=== PATIENT | female | born 1940 | race Caucasian/White ===

== ENCOUNTER 2016-11-25 19:21 | Inpatient (IN) | payer OTHER ==
[~2016-11-25] VITALS: Ht 152.4 cm; Wt 76.7 kg
[~2016-11-25 19:21] MED LIST: ACET325T30 PO; ASCA500 PO; ASPI81TA28 PO; BACL1TAB PO; CLR10 PO; CSPOPS OPB; DICL-201 PO; FLUT0.15 NAE; FURO20TA PO; LATA0.009 OPB; LEVO75TA PO; LISI20TA3 PO; MBXC PO; NYST1POW7 TOP; NYSTCRE11 TOP; OMEP40CA PO; OXYSRUNK PO; SIMV20TA2 PO; VENL37.593 PO; VENL75CA73 PO; VITACAP37 PO
--- NOTE | 2016-11-25 20:30 | DIAGNOSTIC IMAGING REPORT ---
CHEST ONE VIEW PORTABLE CLINICAL HISTORY: Weakness. Nausea. COMPARISON STUDY: Chest radiograph August 04, 2012. FINDINGS: There are surgical anchors within the right humeral head. There is mild left basilar opacity. Right lung is clear. Cardiac size is at the upper limits of normal. Pulmonary vascularity is normal. IMPRESSION: Mild left basilar opacity. Atelectasis is favored although consolidation could appear similar. Follow-up PA and lateral chest radiographs in one month are recommended. Electronically signed by: Jonathan Garner M.D. 11/25/2016 8:28 PM Dictated Date/Time: 11/25/2016 8:26 PM
[2016-11-25] MEDS ORDERED: SODIUM CHLORIDE 0.9% 500ML 500 ML IV STA (20:35)
[2016-11-25] MEDS ORDERED: SODIUM CHLORIDE 0.9% 1000ML 1,000 ML IV STA (20:35)
[2016-11-25 20:44] LABS: BASO % 0.2 %; BASO ABS # 0.02 K/uL (0-0.2); COMPLETE YES; EOS % 0.4 %; HEMATOCRIT 45.2 % (37-47); IG% 1.4 %; LYMPH ABS # 1.07 K/uL (1.2-3.4); MEAN CELL VOLUME 96.8 fL (80-100); MEAN CORPUSCULAR HEMOGLOBIN 32.5 pg (25-34); MEAN CORPUSCULAR HGB CONC 33.6 g/dl (32-36); MEAN PLATELET VOLUME 9.5 fL (7.4-10.4); MONO % 5.5 %; NEUT % 81.5 %; PLATELET COUNT 227 K/uL (130-400); RED BLOOD COUNT 4.67 M/uL (4.2-5.4); WHITE BLOOD COUNT 9.72 K/uL (4.8-10.8)
[2016-11-25 21:04] LABS: MAGNESIUM 1.4 mg/dl (1.8-2.4); POTASSIUM 5.3 mmol/L (3.5-5.1)
[2016-11-25 21:06] LABS: PROTHROMBIN TIME (PATIENT) 11.2 SECONDS (9.0-12.0)
[2016-11-25] MEDS ORDERED: DORZ1SOL6 OP (21:15)
[2016-11-25] MEDS ORDERED: FLUO0.01 TOP (21:15)
[2016-11-25] MEDS ORDERED: PRED10TA PO (21:15)
[2016-11-25] MEDS ORDERED: MULT-513 PO (21:15)
[2016-11-25] MEDS ORDERED: GLUC10007 PO (21:15)
[2016-11-25] MEDS ORDERED: OMEP40CA41 PO (21:15)
[2016-11-25] MEDS ORDERED: OXYC-787 PO (21:15)
[2016-11-25] MEDS ORDERED: LIDO2SOL10 PO (21:15)
[2016-11-25] MEDS ORDERED: CYM/30 PO (21:15)
[2016-11-25] MEDS ORDERED: FERR1TAB13 PO (21:15)
[2016-11-25] MEDS ORDERED: SIME80CH PO (21:15)
[2016-11-25 21:19] LABS: CKMB/CK RATIO 5.5 (0-3.0); THYROID STIMULATING HORMONE 0.897 uIu/ml (0.300-4.500)
--- NOTE | 2016-11-25 21:23 | DIAGNOSTIC IMAGING REPORT ---
CT OF THE ABDOMEN AND PELVIS WITHOUT CONTRAST, STONE PROTOCOL CLINICAL HISTORY: Dark urine, urinary symptoms. COMPARISON STUDY: None. TECHNIQUE: Helical axial images of the abdomen and pelvis were obtained without IV or oral contrast according to renal stone protocol. FINDINGS: Visualized portions of the lower chest demonstrate a moderate sized hiatal hernia. No renal, ureteral or bladder calculi are identified. There is no hydronephrosis or hydroureter. Evaluation the remainder of the abdomen and pelvis is suboptimal on this unenhanced exam. Unenhanced images of the liver, spleen, adrenal glands and pancreas are unremarkable. There are gallstones within the gallbladder. There is no pericholecystic infiltration. There is a moderate amount of stool within the colon. There is evidence for pelvic floor relaxation. There is left colon diverticulosis without evidence for acute diverticulitis. No lymphadenopathy is identified. No suspicious skeletal lesions are identified. There is no ascites or abscess. IMPRESSION: 1. No urinary calculi or hydronephrosis. 2. Cholelithiasis. No CT evidence of acute cholecystitis. 3. Moderate sized hiatal hernia. 4. Moderate amount of stool within the colon. Left colon diverticulosis without evidence for acute diverticulitis. Electronically signed by: Jonathan Garner M.D. 11/25/2016 9:21 PM Dictated Date/Time: 11/25/2016 9:14 PM
[2016-11-25] MEDS ORDERED: MAGNESIUM SULFATE 1GM / D5W 1 GM BAG IV STA (21:54)
[2016-11-25] MEDS ORDERED: ASPIRIN 81 MG CHEW PO STA (21:54)
[2016-11-25 22:31] LABS: URINE APPEARANCE CLEAR (CLEAR); URINE BILIRUBIN NEG (NEG); URINE COLOR YELLOW; URINE NITRITE NEG (NEG); URINE PH 5.5 (4.5-7.5); URINE SPECIFIC GRAVITY 1.009 (1.000-1.030); UROBILINOGEN NEG (NEG)
[2016-11-25 22:35] LABS: MANUAL MICROSCOPIC REQUIRED? NO; REVIEW REQ? NO
[2016-11-25] MEDS ORDERED: MoRPHine SULFATE 4 MG/ML 1 ML CARP\\VIAL IV STA (23:02)
[2016-11-25] MEDS: SODIUM CHLORIDE 0.9% 1000ML 1,000 ML IV SCH (23:11)
[2016-11-25] MEDS ORDERED: NITROGLYCERIN 0.4 MG SL PER TAB CHARGE SL PRN (23:15)
[2016-11-25] MEDS ORDERED: ACETAMINOPHEN 325 MG TAB PO PRN (23:15)
--- NOTE | 2016-11-25 23:20 | History and Physical ---
"History & Physical Date & Time of Service: Nov 25, 2016 at 23:19 Chief Complaint: Sweating, Nausea- Physician Referred Primary Care Physician: Markell Kline M.D. History of Present Illness Source: patient, family Patient is 76 yr old female with PMH of DM II (diet controlled), CKD III, Hypothyroidism, Depression, chronic venous stasis, arthritis presents for evaluation of diaphoresis, for abnormal EKG. Patient was at [facility] five days ago for dark urine with an odor and sweating spells. She was diagnosed to have UTI, hypomagnesemia and dehydration. She was treated with Bactrim and Magnesium. She completed 5 days of Bactrim and was told to complete a 7 day course. She was later told her urine culture was negative. She visited her PCP today who told her to get evaluated in ED for an abnormal EKG. She states not feeling herself since last few days and has nausea and diaphoresis and has been feeling tired lately. Also states being constipated for 2 days but had BM today. Denies any history of chest pain, SOB, palpitations, abd pain, cough, wheezing, LOC, headache, fevers, chills, visual changes, numbness. She also states having poor appetite and lost about 15 pounds since hospitalization at [place]. Past Medical/Surgical History Medical Problems: (1) Depression Status: Chronic (2) Dyslipidemia Status: Chronic (3) Essential hypertension Status: Chronic (4) Generalized osteoarthritis Status: Chronic (5) Psoriasis Status: Chronic (6) s/p colonoscopy Permanent Comment: diverticulosis Status: Resolved (7) s/p dobutamine stress echo Permanent Comment: [facility] 12/18/05 normal LV wall motion and sys function at rest diastolic dysfunction aortic sclerosis without stenosis no stress-induced ischemia Status: Resolved (8) s/p EGD Permanent Comment: small hiatal hernia Status: Resolved (9) s/p rectocele repair Status: Resolved (10) s/p repair right rotator cuff injury Status: Resolved (11) s/p TKA left Status: Resolved (12) s/p TKA right Status: Resolved Family History Mother:Heart disease Father:Diabetes Social History Smoking Status: Former Smoker Alcohol Use: none Drug Use: none Occupational Status: retired Immunizations History of Influenza Vaccine: N/A History of Tetanus Vaccine?: UTD History of Pneumococcal: Yes Pneumococcal Date: December 09, 2008 History of Hepatitis B Vaccine: Yes Hepatitis Immunization Date: December 09, 1996 Multi-Drug Resistant Organisms History of MDRO: No Allergies Coded Allergies: Gabapentin (Verified Allergy, Severe, MOUTH SWELLS, 11/25/16) Pregabalin (Verified Allergy, Severe, MOUTH SWELLS, 11/25/16) Home Medications Scheduled Ascorbic Acid (Vitamin C), 1 TAB PO QAM Dorzolamide Hcl-Timolol Maleat (Cosopt Oph), 1 DROPS OP BID Duloxetine HCl (Cymbalta), 1 CAP PO DAILY Ferrous Sulfate (Kp Ferrous Sulfate), 1 TAB PO BID Fluocinolone Acetonide (Fluocinolone Acetonide), 1 APPLN TOP gmg Furosemide (Lasix), 20 MG PO QAM Glucosamine Sulfate (Glucosamine), 1,000 MG PO BID Latanoprost (Xalatan 0.005% Oph Chanelle), 1 DROP OPB HS Levothyroxine Sodium (Synthroid), 75 MCG PO QAM Lidocaine Hcl (Mouth-Throat) (Lidocaine Hcl), 2 TBS PO UD Lisinopril (Prinivil), 20 MG PO QAM Loratadine (Claritin), 10 MG PO HS Multivitamins/Minerals (Mvi With Minerals), 1 TAB PO DAILY Omeprazole (Prilosec), 40 MG PO DAILY Oxycodone HCl (Oxycodone HCl ER), 30 MG PO Q12 Prednisone Tab (Prednisone), 10 MG PO DAILY Simvastatin (Zocor), 20 MG PO HS Venlafaxine Hcl (Venlafaxine Extended Rel), 75 MG PO QAM Venlafaxine Hcl (Venlafaxine Extended Rel), 37.5 MG PO QAM Vitamin E (E-400), 1 TAB PO QAM Scheduled PRN Acetaminophen (Acetaminophen), 2 TAB PO QID PRN for Pain Baclofen (Lioresal), 10 MG PO TID PRN for Muscle Spasms Fluticasone Propionate (Nasal) (Flonase Allergy Relief), 1 SPRAY FELIPE QAM PRN for Nasal Congestion Magic Swizzle (Magic Swizzle - SUCRALFA/ALUM/MAG/DIPHEN/LIDO), 3-4 TSP PO Q4-6H PRN for MOUTH ULCERS Nystatin (Topical) (Nystatin), 1 APPL TOP UD PRN for RASH Nystatin/Triamcinolone (Mycolog ||), 1 APPL TOP UD PRN for CELLULITIS Simethicone (Gas-X), 80 MG PO QID PRN for GAS Review of Systems See HPI for pertinent positives & negatives. A total of 10 systems reviewed and were otherwise negative. Physical Exam Vital Signs Date Time Temp Pulse Resp B/P Pulse Ox O2 Delivery O2 Flow Rate FiO2 11/25/16 22:35 160/89 11/25/16 22:25 193/107 11/25/16 22:14 103 20 193/107 95 Room Air 11/25/16 20:52 108 148/104 106 169/112 112 144/106 11/25/16 20:06 95 11/25/16 20:04 94 Room Air 11/25/16 19:27 36.7 108 19 141/86 94 Room Air General Appearance: WD/WN, no apparent distress Head: normocephalic, atraumatic Eyes: normal inspection, PERRL, EOMI, sclerae normal ENT: normal ENT inspection, hearing grossly normal Neck: supple, trachea midline Respiratory/Chest: lungs clear, normal breath sounds, no respiratory distress, no accessory muscle use Cardiovascular: regular rate, rhythm, no murmur, + tachycardia Abdomen/GI: normal bowel sounds, non tender, soft Back: normal inspection Extremities/Musculoskelatal: normal inspection, + pertinent finding (Trace edema) Neurologic/Psych: camp boss II-XII nml as tested, no motor/sensory deficits, alert, normal mood/affect, oriented x 3 Skin: normal color, warm/dry Diagnostics Laboratory Results Results Past 24 Hours Test 11/25/16 20:34 11/25/16 20:35 11/25/16 22:00 Range/Units Bedside Glucose 129 70-90 mg/dl White Blood Count 9.72 4.8-10.8 K/uL Red Blood Count 4.67 4.2-5.4 M/uL Hemoglobin 15.2 12.0-16.0 g/dL Hematocrit 45.2 37-47 % Mean Corpuscular Volume 96.8 80-100 fL Mean Corpuscular Hemoglobin 32.5 25-34 pg Mean Corpuscular Hemoglobin Concent 33.6 32-36 g/dl Platelet Count 227 130-400 K/uL Mean Platelet Volume 9.5 7.4-10.4 fL Neutrophils (%) (Auto) 81.5 % Lymphocytes (%) (Auto) 11.0 % Monocytes (%) (Auto) 5.5 % Eosinophils (%) (Auto) 0.4 % Basophils (%) (Auto) 0.2 % Neutrophils # (Auto) 7.92 1.4-6.5 K/uL Lymphocytes # (Auto) 1.07 1.2-3.4 K/uL Monocytes # (Auto) 0.53 0.11-0.59 K/uL Eosinophils # (Auto) 0.04 0-0.5 K/uL Basophils # (Auto) 0.02 0-0.2 K/uL RDW Standard Deviation 47.6 36.4-46.3 fL RDW Coefficient of Variation 13.4 11.5-14.5 % Immature Granulocyte % (Auto) 1.4 % Immature Granulocyte # (Auto) 0.14 0.00-0.02 K/uL Prothrombin Time 11.2 9.0-12.0 SECONDS Prothromb Time International Ratio 1.0 0.9-1.1 Activated Partial Thromboplast Time 25.9 21.0-31.0 SECONDS Partial Thromboplastin Ratio 1.0 Sodium Level 133 136-145 mmol/L Potassium Level 5.3 3.5-5.1 mmol/L Chloride Level 97 98-107 mmol/L Carbon Dioxide Level 32 21-32 mmol/L Anion Gap 4.0 3-11 mmol/L Blood Urea Nitrogen 48 7-18 mg/dl Creatinine 2.00 0.60-1.20 mg/dl Est Creatinine Clear Calc Drug Dose 22.6 ml/min Estimated GFR () 27.8 Estimated GFR (Non- 24.0 BUN/Creatinine Ratio 24.0 10-20 Random Glucose 144 70-99 mg/dl Calcium Level 9.0 8.5-10.1 mg/dl Magnesium Level 1.4 1.8-2.4 mg/dl Total Bilirubin 0.5 0.2-1 mg/dl Direct Bilirubin 0.2 0-0.2 mg/dl Aspartate Amino Transf (AST/SGOT) 22 15-37 U/L Alanine Aminotransferase (ALT/SGPT) 34 12-78 U/L Alkaline Phosphatase 63 45-117 U/L Total Creatine Kinase 144 26-192 U/L Creatine Kinase MB 7.9 0.5-3.6 ng/ml Creatine Kinase MB Ratio 5.5 0-3.0 Troponin I 0.062 0-0.045 ng/ml Pro-B-Type Natriuretic Peptide 975 0-900 pg/ml Total Protein 7.4 6.4-8.2 gm/dl Albumin 3.8 3.4-5.0 gm/dl Lipase 157 73-393 U/L Thyroid Stimulating Hormone (TSH) 0.897 0.300-4.500 uIu/ml Urine Color YELLOW Urine Appearance CLEAR CLEAR Urine pH 5.5 4.5-7.5 Urine Specific [place] 1.009 1.000-1.030 Urine Protein NEG NEG Urine Glucose (UA) NEG NEG Urine Ketones NEG NEG Urine Occult Blood NEG NEG Urine Nitrite NEG NEG Urine Bilirubin NEG NEG Urine Urobilinogen NEG NEG Urine Leukocyte Esterase SMALL NEG Urine WBC (Auto) 5-10 0-5 /hpf Urine RBC (Auto) 0-4 0-4 /hpf Urine Hyaline Casts (Auto) 1-5 0-5 /lpf Urine Epithelial Cells (Auto) 10-20 0-5 /lpf Urine Bacteria (Auto) NEG NEG Microbiology Results 11/25/16 Urine Culture, Received Pending Diagnostic Radiology CXR: Mild left basilar opacity. Atelectasis is favored although consolidation could appear similar. Follow-up PA and lateral chest radiographs in one month are recommended. CT ABD: 1. No urinary calculi or hydronephrosis. 2. Cholelithiasis. No CT evidence of acute cholecystitis. 3. Moderate sized hiatal hernia. 4. Moderate amount of stool within the colon. Left colon diverticulosis without evidence for acute diverticulitis. EKG ekg: Inferior Q waves which were new compared to April Impression Assessment and Plan RITA on CKD III: Likely secondary to dehydration, Bactrim, lisinopril Cr:1.[address] [facility] Hold ACEI, lasix Avoid nephro toxic agents Start IV fluids Monitor renal function ACS R/O Risk factors: H/O HTN, former Tobacco use disorder, DM II Denies any chest pain New Q waves in inferior leads Troponin:0.062 CXR: Mild left basilar opacity, likely atelectasis Check ECHO Trend serial cardiac enzymes, repeat EKG, fasting lipid panel in AM Continue Aspirin, statins Start IV Heparin for now Oxygen PRN NPO after midnight Cardiology consulted Hypomagnesemia Replace and monitor Hyperkalemia: Likely secondary to RITA Continue IV fluids Monitor potassium levels Hold lisinopril ? UTI: UA: small leukocyte esterase [id number] up cultures Afebrile, No leukocytosis, denies symptoms Hypertension: Likely situational Asymptomatic Monitor Lasix and Lisinopril on hold secondary to RITA Diaphoresis/Weight loss: CT ABD: no acute pathology CXR: Mild left basilar opacity, likely atelectasis Afebrile, No leukocytosis DM II: Diet controlled ISS, Accu checks Hypothyroidism: Continue levothyroxine DVT Px: On IV heparin Code Status: DNI only: on my discussion with patient Disposition: Continue monitoring in Tele VTE Prophylaxis VTE Risk Assessment Done? Y/N: Yes Risk Level: Low"
[2016-11-25] MEDS ORDERED: ONDANSETRON INJ 2 MG/ML 2 ML VIAL IV STA (23:42)
[2016-11-25] MEDS ORDERED: SIMETHICONE 80 MG CHEW PO PRN (23:45)
[2016-11-25] MEDS ORDERED: BACLOFEN 10 MG TAB PO PRN (23:45)
[2016-11-25] MEDS ORDERED: ONDANSETRON INJ 2 MG/ML 2 ML VIAL ONE (23:48)
[2016-11-26] VITALS (9 sets, daily range): BP systolic 133–190; BP diastolic 71–106; PULSE 58–92; TEMP 36.6–36.9; O2SAT 92–97; Ht 152.4 cm; Wt 76.7 kg
--- NOTE | 2016-11-26 01:18 | EMERGENCY ROOM VISIT NOTE ---
"History Report prepared by Sherry: Violet Cast Under the Supervision of: Dr. Ricardo Grajeda M.D. First contact with patient: 19:51 Chief Complaint: NAUSEA Stated Complaint: SWEATING, NAUSEA- PHYSICIAN REFERRED History of Present Illness The patient is a 76 year old female who presents to the Emergency Room with complaints of episodes of sweating spells starting five days ago. The patient visited [facility] five days ago for dark urine with an odor and sweating spells. She reports she was diagnosed with a UTI, low magnesium, and dehydration. She states she was sent home with Bactrim and Magnesium. She states that she went to her PCP in [place] today who told her to come to the ED due to an abnormal EKG. The patient notes that the medicine has not helped her fell any better. She notes that she has been constipated for two days and has seemed winded. Pt denies LOC, headache, fevers, chills, diaphoresis, visual changes, neck pain, chest pain, breathing difficulties, nausea, vomiting, abdominal pain, back pain, melena, hematochezia, numbness, weakness, lymphadenopathy, rash, or other complaints. Source of History: patient Onset: five days ago Position: other (global) Quality: other (global) Timing: other (episodes) Associated Symptoms: + urinary symptoms Note: The patient notes constipation. Review of Systems See HPI for pertinent positives and negatives. A total of ten systems were reviewed and were otherwise negative. Past Medical & Surgical Medical Problems: (1) Depression (2) Dyslipidemia (3) Essential hypertension (4) Generalized osteoarthritis (5) hip fracture (6) Psoriasis (7) s/p colonoscopy (8) s/p dobutamine stress echo (9) s/p EGD (10) s/p rectocele repair (11) s/p repair right rotator cuff injury (12) s/p TKA left (13) s/p TKA right (14) Tiredness Family History No pertinent family history stated. Social History Smoking Status: Former Smoker Occupation Status: retired Current/Historical Medications Scheduled Ascorbic Acid (Vitamin C), 1 TAB PO QAM Dorzolamide Hcl-Timolol Maleat (Cosopt Oph), 1 DROPS OP BID Duloxetine HCl (Cymbalta), 1 CAP PO DAILY Ferrous Sulfate (Kp Ferrous Sulfate), 1 TAB PO BID Fluocinolone Acetonide (Fluocinolone Acetonide), 1 APPLN TOP gmg Furosemide (Lasix), 20 MG PO QAM Glucosamine Sulfate (Glucosamine), 1,000 MG PO BID Latanoprost (Xalatan 0.005% Oph Chanelle), 1 DROP OPB HS Levothyroxine Sodium (Synthroid), 75 MCG PO QAM Lidocaine Hcl (Mouth-Throat) (Lidocaine Hcl), 2 TBS PO UD Lisinopril (Prinivil), 20 MG PO QAM Loratadine (Claritin), 10 MG PO HS Multivitamins/Minerals (Mvi With Minerals), 1 TAB PO DAILY Omeprazole (Prilosec), 40 MG PO DAILY Oxycodone HCl (Oxycodone HCl ER), 30 MG PO Q12 Prednisone Tab (Prednisone), 10 MG PO DAILY Simvastatin (Zocor), 20 MG PO HS Venlafaxine Hcl (Venlafaxine Extended Rel), 75 MG PO QAM Venlafaxine Hcl (Venlafaxine Extended Rel), 37.5 MG PO QAM Vitamin E (E-400), 1 TAB PO QAM Scheduled PRN Acetaminophen (Acetaminophen), 2 TAB PO QID PRN for Pain Baclofen (Lioresal), 10 MG PO TID PRN for Muscle Spasms Fluticasone Propionate (Nasal) (Flonase Allergy Relief), 1 SPRAY FELIPE QAM PRN for Nasal Congestion Magic Swizzle (Magic Swizzle - SUCRALFA/ALUM/MAG/DIPHEN/LIDO), 3-4 TSP PO Q4-6H PRN for MOUTH ULCERS Nystatin (Topical) (Nystatin), 1 APPL TOP UD PRN for RASH Nystatin/Triamcinolone (Mycolog ||), 1 APPL TOP UD PRN for CELLULITIS Simethicone (Gas-X), 80 MG PO QID PRN for GAS Allergies Coded Allergies: Gabapentin (Verified Allergy, Severe, MOUTH SWELLS, 11/25/16) Pregabalin (Verified Allergy, Severe, MOUTH SWELLS, 11/25/16) Physical Exam Vital Signs Date Time Temp Pulse Resp B/P Pulse Ox O2 Delivery O2 Flow Rate FiO2 11/25/16 22:35 160/89 11/25/16 22:25 193/107 11/25/16 22:14 103 20 193/107 95 Room Air 11/25/16 20:52 108 148/104 106 169/112 112 144/106 11/25/16 20:06 95 11/25/16 20:04 94 Room Air 11/25/16 19:27 36.7 108 19 141/86 94 Room Air Physical Exam GENERAL: Awake, alert, well-appearing, in no distress HENT: Normocephalic, atraumatic. Oropharynx unremarkable. EYES: Normal conjunctiva. Sclera non-icteric. NECK: Supple. No nuchal rigidity. FROM. No JVD. RESPIRATORY: Clear to auscultation. CARDIAC: Regular rate, normal rhythm. Extremities warm and well perfused. Pulses equal. ABDOMEN: Soft, non-distended. No tenderness to palpation. No rebound or guarding. No masses. RECTAL: Deferred. MUSCULOSKELETAL: Chest examination reveals no tenderness. The back is symmetrical on inspection without obvious abnormality. There is no CVA tenderness to palpation. No joint edema. LOWER EXTREMITIES: Calves are equal size bilaterally and non-tender. Trace +1 edema. Chronic venous discoloration. NEURO: Normal sensorium. No sensory or motor deficits noted. SKIN: No rash or jaundice noted. Medical Decision & Procedures ER Provider Diagnostic Interpretation: X ray results as stated below per my interpretation and radiologist interpretation. Other radiology results as stated below per my review and radiologist interpretation CT OF THE ABDOMEN AND PELVIS WITHOUT CONTRAST, STONE PROTOCOL CLINICAL HISTORY: Dark urine, urinary symptoms. COMPARISON STUDY: None. TECHNIQUE: Helical axial images of the abdomen and pelvis were obtained without IV or oral contrast according to renal stone protocol. FINDINGS: Visualized portions of the lower chest demonstrate a moderate sized hiatal hernia. No renal, ureteral or bladder calculi are identified. There is no hydronephrosis or hydroureter. Evaluation the remainder of the abdomen and pelvis is suboptimal on this unenhanced exam. Unenhanced images of the liver, spleen, adrenal glands and pancreas are unremarkable. There are gallstones within the gallbladder. There is no pericholecystic infiltration. There is a moderate amount of stool within the colon. There is evidence for pelvic floor relaxation. There is left colon diverticulosis without evidence for acute diverticulitis. No lymphadenopathy is identified. No suspicious skeletal lesions are identified. There is no ascites or abscess. IMPRESSION: 1. No urinary calculi or hydronephrosis. 2. Cholelithiasis. No CT evidence of acute cholecystitis. 3. Moderate sized hiatal hernia. 4. Moderate amount of stool within the colon. Left colon diverticulosis without evidence for acute diverticulitis. Electronically signed by: Jonathan Garner M.D. 11/25/2016 9:21 PM Dictated Date/Time: 11/25/2016 9:14 PM CHEST ONE VIEW PORTABLE CLINICAL HISTORY: Weakness. Nausea. COMPARISON STUDY: Chest radiograph August 04, 2012. FINDINGS: There are surgical anchors within the right humeral head. There is mild left basilar opacity. Right lung is clear. Cardiac size is at the upper limits of normal. Pulmonary vascularity is normal. IMPRESSION: Mild left basilar opacity. Atelectasis is favored although consolidation could appear similar. Follow-up PA and lateral chest radiographs in one month are recommended. Electronically signed by: Jonathan Garner M.D. 11/25/2016 8:28 PM Dictated Date/Time: 11/25/2016 8:26 PM Laboratory Results 11/25/16 20:35 Red Blood Count 4.67, Mean Corpuscular Volume 96.8, Mean Corpuscular Hemoglobin 32.5, Mean Corpuscular Hemoglobin Concent 33.6, Mean Platelet Volume 9.5, Neutrophils (%) (Auto) 81.5, Lymphocytes (%) (Auto) 11.0, Monocytes (%) (Auto) 5.5, Eosinophils (%) (Auto) 0.4, Basophils (%) (Auto) 0.2, Neutrophils # (Auto) 7.92, Lymphocytes # (Auto) 1.07, Monocytes # (Auto) 0.53, Eosinophils # (Auto) 0.04, Basophils # (Auto) 0.02 11/25/16 20:35 Test 11/25/16 20:34 11/25/16 20:35 11/25/16 22:00 Bedside Glucose 129 mg/dl (70-90) White Blood Count 9.72 K/uL (4.8-10.8) Red Blood Count 4.67 M/uL (4.2-5.4) Hemoglobin 15.2 g/dL (12.0-16.0) Hematocrit 45.2 % (37-47) Mean Corpuscular Volume 96.8 fL (80-100) Mean Corpuscular Hemoglobin 32.5 pg (25-34) Mean Corpuscular Hemoglobin Concent 33.6 g/dl (32-36) Platelet Count 227 K/uL (130-400) Mean Platelet Volume 9.5 fL (7.4-10.4) Neutrophils (%) (Auto) 81.5 % Lymphocytes (%) (Auto) 11.0 % Monocytes (%) (Auto) 5.5 % Eosinophils (%) (Auto) 0.4 % Basophils (%) (Auto) 0.2 % Neutrophils # (Auto) 7.92 K/uL (1.4-6.5) Lymphocytes # (Auto) 1.07 K/uL (1.2-3.4) Monocytes # (Auto) 0.53 K/uL (0.11-0.59) Eosinophils # (Auto) 0.04 K/uL (0-0.5) Basophils # (Auto) 0.02 K/uL (0-0.2) RDW Standard Deviation 47.6 fL (36.4-46.3) RDW Coefficient of Variation 13.4 % (11.5-14.5) Immature Granulocyte % (Auto) 1.4 % Immature Granulocyte # (Auto) 0.14 K/uL (0.00-0.02) Prothrombin Time 11.2 SECONDS (9.0-12.0) Prothromb Time International Ratio 1.0 (0.9-1.1) Activated Partial Thromboplast Time 25.9 SECONDS (21.0-31.0) Partial Thromboplastin Ratio 1.0 Anion Gap 4.0 mmol/L (3-11) Est Creatinine Clear Calc Drug Dose 22.6 ml/min Estimated GFR () 27.8 Estimated GFR (Non- 24.0 BUN/Creatinine Ratio 24.0 (10-20) Calcium Level 9.0 mg/dl (8.5-10.1) Magnesium Level 1.4 mg/dl (1.8-2.4) Total Bilirubin 0.5 mg/dl (0.2-1) Direct Bilirubin 0.2 mg/dl (0-0.2) Aspartate Amino Transf (AST/SGOT) 22 U/L (15-37) Alanine Aminotransferase (ALT/SGPT) 34 U/L (12-78) Alkaline Phosphatase 63 U/L (45-117) Total Creatine Kinase 144 U/L (26-192) Creatine Kinase MB 7.9 ng/ml (0.5-3.6) Creatine Kinase MB Ratio 5.5 (0-3.0) Troponin I 0.062 ng/ml (0-0.045) Pro-B-Type Natriuretic Peptide 975 pg/ml (0-900) Total Protein 7.4 gm/dl (6.4-8.2) Albumin 3.8 gm/dl (3.4-5.0) Lipase 157 U/L (73-393) Thyroid Stimulating Hormone (TSH) 0.897 uIu/ml (0.300-4.500) Urine Color YELLOW Urine Appearance CLEAR (CLEAR) Urine pH 5.5 (4.5-7.5) Urine Specific [place] 1.009 (1.000-1.030) Urine Protein NEG (NEG) Urine Glucose (UA) NEG (NEG) Urine Ketones NEG (NEG) Urine Occult Blood NEG (NEG) Urine Nitrite NEG (NEG) Urine Bilirubin NEG (NEG) Urine Urobilinogen NEG (NEG) Urine Leukocyte Esterase SMALL (NEG) Urine WBC (Auto) 5-10 /hpf (0-5) Urine RBC (Auto) 0-4 /hpf (0-4) Urine Hyaline Casts (Auto) 1-5 /lpf (0-5) Urine Epithelial Cells (Auto) 10-20 /lpf (0-5) Urine Bacteria (Auto) NEG (NEG) Laboratory results reviewed by me Medications Administered Medications (Trade) Dose Ordered Sig/Fab Route Start Time Stop Time Status Last Admin Dose Admin Sodium Chloride 1,000 ml @ 200 mls/hr Q5H STAT IV 11/25/16 20:35 11/26/16 01:34 11/25/16 21:48 200 MLS/HR Sodium Chloride (Nss 500ml) 500 ml @ 999 mls/hr Q31M STAT IV 11/25/16 20:35 11/25/16 21:05 DC 11/25/16 20:59 999 MLS/HR Magnesium Sulfate (Magnesium Sulfate) 1 gm NOW STAT IV 11/25/16 21:54 11/25/16 21:55 DC 11/25/16 22:08 1 GM Aspirin (Aspirin Chew) 324 mg NOW STAT PO 11/25/16 21:54 11/25/16 21:55 DC 11/25/16 22:08 324 MG Morphine Sulfate (MoRPHine SULFATE INJ) 4 mg NOW STAT IV 11/25/16 23:02 11/25/16 23:04 DC 11/25/16 23:43 4 MG ECG Indication: diaphoresis Rate (beats per minute): 98 Rhythm: sinus tachycardia Findings: PAC (sinus rhythm), Q waves (Inferior), left axis deviation (LVH) Comparison ECG Date: 04/24/2016 Change: PACs and Inferior Q-waves are new from previous EKG. ED Course 2030: The patient was evaluated in room C3. A complete history and physical exam was performed. 2034: Ordered NSS 500 ml @ 999 mls/hr IV, NSS 1000 ml @ 200 mls/hr IV. 2153: Ordered Aspirin Chew 324 mg PO, Magnesium Sulfate 1 gm IV. 2199: Upon reexamination, the patient was resting comfortably. I discussed the test results and treatment plan with her and her daughter. The patient will be evaluated for further management. 2210: Discussed the patient's case. The patient will be evaluated for further treatment and disposition. Medical Decision Triage Nursing notes reviewed. The patient's presentation and history were concerning for hypermagnesemia, diaphoresis, and urinary symptoms. Etiologies such as metabolic, infection, hypo/hyperglycemia, electrolyte abnormalities, cardiac sources, intracerebral event, toxicologic, neurologic, as well as others were entertained. The patient was evaluated. She was hydrated. Her ECG showed inferior Q waves which were new compared to April. The patient denied any chest pain but did have feelings of malaise and periods of diaphoresis. Records were reviewed from her previous ED visit. She was hypomagnesemic. The patient had normal renal function. Today she has acute kidney injury on her chemistry panel. She has slight hyperkalemia. The patient has hypomagnesemia. Her CBC is unremarkable. Cardiac markers were elevated. The patient was given aspirin. She was given IV magnesium. Chest imaging and CT imaging as above. Consultation was made with internal medicine. The patient takes daily pain medications and was due for her evening medication. She was complaining of her chronic leg pain and was given 4 mg of Zofran and 4 mg of morphine prior to internal medicine evaluation. The patient was evaluated by internal medicine and admitted for further treatment. The chart was completed utilizing [employer] voice recognition software. Grammatical errors, random word insertions, pronoun errors, and incomplete sentences are an occasional consequence of this system due to software limitations, ambient noise, and hardware issues. Any formal questions or concerns about the content, text, or information contained within the body of this dictation should be directly addressed to the physician for clarification. Consults Time Called: 2204 Consulting Physician: Dr. Pan Returned Call: 2210 Discussed the patient's case. The patient will be evaluated for further treatment and disposition. Impression Primary Impression: Acute kidney injury Additional Impressions: Hypomagnesemia Non-STEMI (non-ST elevated myocardial infarction) Scribe Attestation The scribe's documentation has been prepared under my direction and personally reviewed by me in its entirety. I confirm that the note above accurately reflects all work, treatment, procedures, and medical decision making performed by me. Departure Information Dispostion Being Evaluated By Hospitalist Markell Gamble M.D. (PCP) Patient Instructions My [facility] Problem Qualifiers"
[2016-11-26] MEDS: HEPARIN 25,000 UNIT/500ML D5W 500 ML IV PRN ×3 (01:35→23:48)
[2016-11-26] MEDS ORDERED: GLUCAGON FOR INJ 1 MG VIAL SQ PRN (02:30)
[2016-11-26] MEDS ORDERED: GLUCOSE 40% GEL 15 GM TUBE PO PRN (02:30)
[2016-11-26] MEDS ORDERED: GLUCOSE 10 TABS/TUBE PO PRN (02:30)
[2016-11-26] MEDS ORDERED: DEXTROSE 50% 50 ML SYR IV PRN (02:30)
[2016-11-26] MEDS ORDERED: PHARMACY GLYCEMIC MGMT CONSULT PRN (03:07)
[2016-11-26] MEDS ORDERED: PNEUMOCOCCAL POLYSACCHARIDES 25 MCG/0.5 ML VIAL/SYR IM. ONE (05:15)
[2016-11-26] MEDS ORDERED: PNEUMOCOCCAL ADMINISTRATION CHARGE ONE (05:15)
[2016-11-26 05:58] LABS: BASO % 0.2 %; BASO ABS # 0.02 K/uL (0-0.2); COMPLETE YES; EOS % 2.9 %; HEMATOCRIT 43.4 % (37-47); IG% 0.7 %; LYMPH % 27.9 %; LYMPH ABS # 2.35 K/uL (1.2-3.4); MEAN CELL VOLUME 98.2 fL (80-100); MEAN CORPUSCULAR HGB CONC 33.6 g/dl (32-36); MEAN PLATELET VOLUME 9.7 fL (7.4-10.4); MONO % 6.9 %; NEUT % 61.4 %; PLATELET COUNT 208 K/uL (130-400); RED BLOOD COUNT 4.42 M/uL (4.2-5.4); WHITE BLOOD COUNT 8.42 K/uL (4.8-10.8)
[2016-11-26] MEDS ORDERED: INSULIN ASPART 100 UNITS/ML 3 ML PEN SC SCH ×3 (06:00→18:00)
[2016-11-26] MEDS: LEVOTHYROXINE 75 MCG TAB PO SCH (06:24)
[2016-11-26 06:26] LABS: BLOOD UREA NITROGEN 42 mg/dl (7-18); CALCIUM 8.8 mg/dl (8.5-10.1); CARBON DIOXIDE 34 mmol/L (21-32); CHLORIDE 101 mmol/L (98-107); GLUCOSE 89 mg/dl (70-99); MAGNESIUM 1.6 mg/dl (1.8-2.4); POTASSIUM 4.4 mmol/L (3.5-5.1); SODIUM 138 mmol/L (136-145)
[2016-11-26 06:28] LABS: ESTIMATED AVERAGE GLUCOSE 148 mg/dl; HA1C FLAG Normal (Normal)
[2016-11-26 06:38] LABS: CHOLESTEROL 161 mg/dl (0-200); CHOLESTEROL/HDL RATIO 2.9; HDL CHOLESTEROL 55 mg/dl; LDL CHOLESTEROL CALCULATED 80 mg/dl; TRIGLYCERIDES 131 mg/dl (0-150); VERY LOW DENSITY LIPOPROT CALC 26 mg/dl
[2016-11-26] MEDS: PANTOprazole SOD 40 MG TAB PO SCH (08:28)
[2016-11-26] MEDS: OXYCODONE HCL 10 MG TABCR (OXYCONTIN) PO SCH ×2 (08:29→20:30)
[2016-11-26] MEDS: GLUCOSAMINE SULFATE 500 MG CAP PO SCH ×2 (08:31→20:33)
[2016-11-26] MEDS: ASCORBIC ACID 500 MG TAB PO SCH (08:32)
[2016-11-26] MEDS: FERROUS SULFATE 325 MG TAB PO SCH ×2 (08:32→20:32)
[2016-11-26] MEDS: DULOXETINE (CYMBALTA) 30 MG CAP PO SCH (08:34)
[2016-11-26] MEDS: ASPIRIN 81 MG ECTAB PO SCH (08:34)
[2016-11-26] MEDS: VENLAFAXINE HCL XR 37.5 MG CAPXR PO SCH (08:36)
[2016-11-26] MEDS: VENLAFAXINE HCL XR 75 MG CAPXR PO SCH (08:36)
[2016-11-26] MEDS: AMLODIPINE BESYLATE 5 MG TAB PO SCH (08:36)
[2016-11-26] MEDS: SODIUM CHLORIDE 0.9% 1000ML 1,000 ML IV SCH ×2 (08:39→20:31)
[2016-11-26] MEDS: DORZOLAMIDE/TIMOLOL 22.3/6.8MG/ML 10 ML BTL OP SCH ×2 (08:40→20:30)
[2016-11-26] MEDS ORDERED: FUROSEMIDE 20 MG TAB PO SCH (09:00)
--- NOTE | 2016-11-26 09:50 | Pharmacy Progress Note ---
Glycemic Control Intl Consult Date of Service Nov 26, 2016. Scope Glycemic Pharmacist consulted by Dr Alcazar on 11/26/16 for glycemic control and to write orders per [facility] inpatient glycemic control protocol Objective Weight (Kilograms): 76.800 Accuchecks BSG (last 24hrs): Test 11/25/16 20:34 11/25/16 20:35 11/26/16 05:20 11/26/16 06:22 Bedside Glucose 129 mg/dl (70-90) 78 mg/dl (70-90) Random Glucose 144 mg/dl (70-99) 89 mg/dl (70-99) Laboratory Data (last 24hrs) Test 11/25/16 20:35 11/26/16 05:20 Anion Gap 4.0 mmol/L 3.0 mmol/L BUN/Creatinine Ratio 24.0 26.0 Blood Urea Nitrogen 48 mg/dl 42 mg/dl Creatinine 2.00 mg/dl 1.60 mg/dl Potassium Level 5.3 mmol/L 4.4 mmol/L Sodium Level 133 mmol/L 138 mmol/L White Blood Count 9.72 K/uL 8.42 K/uL Red Blood Count 4.67 M/uL 4.42 M/uL Hemoglobin 15.2 g/dL 14.6 g/dL Hematocrit 45.2 % 43.4 % Mean Corpuscular Volume 96.8 fL 98.2 fL Mean Corpuscular Hemoglobin 32.5 pg 33.0 pg Mean Corpuscular Hemoglobin Concent 33.6 g/dl 33.6 g/dl Platelet Count 227 K/uL 208 K/uL Mean Platelet Volume 9.5 fL 9.7 fL Neutrophils (%) (Auto) 81.5 % 61.4 % Lymphocytes (%) (Auto) 11.0 % 27.9 % Monocytes (%) (Auto) 5.5 % 6.9 % Eosinophils (%) (Auto) 0.4 % 2.9 % Basophils (%) (Auto) 0.2 % 0.2 % Neutrophils # (Auto) 7.92 K/uL 5.17 K/uL Lymphocytes # (Auto) 1.07 K/uL 2.35 K/uL Monocytes # (Auto) 0.53 K/uL 0.58 K/uL Eosinophils # (Auto) 0.04 K/uL 0.24 K/uL Basophils # (Auto) 0.02 K/uL 0.02 K/uL Hemoglobin A1c 6.8 % HbA1c Test 11/26/16 05:20 Hemoglobin A1c 6.8 %(4.5-5.6) H Recent Pertinent Medications Outpatient Anti-diabetic Regimen: * diet/lifestyle The patient is currently receiving: * Basal insulin: * none at this time * Bolus insulin: * NovoLog Correction per scale AC/HS or q6H if NPO * Goal Range: Low 140 mg/dL - High 180 mg/dL * Correction Factor: 30 mg/dL/unit * Carb ratio of 1 unit per -- grams CHO consumed Risk Factors for Insulin Resistance: * IVF: heparin infusion (mixed in dextrose), magnesium riders (mixed in dextrose) * Diet: NPO Risk Factors for Insulin Sensitivity: * RITA Assessment & Plan ASSESSMENT: Initial: * ADA & AACE recommend a goal blood sugar range 140-180 mg/dl for the majority of critically ill & non-critically ill patients. However, more stringent targets may be selected in individual cases. * 76 y/o with T2DM who enjoys good glycemic control with diet and lifestyle modifications. * Admitted with tiredness * Currently, BSGs have not been elevated and she has not required any insulin thus far. 11/26/16 * Continue with bolus insulin only * add carb ratio in addition to correction factor for both pro- and retro- active bolus insulin dosing * A1c current * add to discharge instructions PLAN FOR INPATIENT GLYCEMIC CONTROL: * Basal insulin: * forgo at this time * Bolus insulin: * NovoLog AC/HS or q6H - Correction factor: 30mg/dL/unit - Goal range: 140-180mg/dL/unit per ADA recommendations - Carb ratio: 1 unit per every 10 g of CHO consumed * A1c - add to discharge instructions RECOMMENDATIONS FOR DISCHARGE: * Likely, Ms Rodrigez can continue her home routine at discharge. * Please note that the plan above was derived based on current level of insulin resistance and hospital stress. These recommendations are appropriate for inpatient admission only. Plan of care upon discharge will need to be reassessed to avoid potential outpatient hypo/hyperglycemia. Thank you.
[2016-11-26] MEDS ORDERED: METOPROLOL TARTRATE 1 MG/ML VIAL IV STA (10:11)
--- NOTE | 2016-11-26 10:11 | ECHOCARDIOGRAM REPORT ---
*NOTICE TO RECEIVING DEMOCRAT AGENCY This information is strictly Confidential and protected under [place] law. [place] law prohibits you from making any further disclosure of this information unless further disclosure is expressly permitted by the written consent of the person to whom it pertains or is authorized by law. A general authorization for the release of medical or other information is not sufficient for this purpose. Hospital accepts no responsibility if the information is made available to any other person, INCLUDING THE PATIENT. Interpretation Summary * Name: DIOGENES MIRAMONTES Study Date: 11/26/2016 06:50 AM BP: 174/101 mmHg * Patient Location: C.2T\S\S241\S\2 HR: 86 * : 1940 (M/d/yyy) Gender: Female Height: 60 in * Age: 76 yrs Ethnicity: CA Weight: 169 lb * Ordering Physician: Israel Alcazar * Referring Physician: Nena Hopson * Performed By: Annie Carballo RDCS * * Reason For Study: Chest pain * BSA: 1.7 m2 * -- Conclusions -- * There is severe concentric left ventricular hypertrophy. * The basal septum is thickened and angulated consistent with sigmoid septum. * No regional wall motion abnormalities noted. * The LV Ejection Fraction = 60-65%. * The right ventricle is normal in size and function. * The left atrium is mildly dilated. * Aortic valve sclerosis moderate, without significant aortic valvular stenosis. * There is severe mitral annular calcification. * Grade I diastolic dysfunction, (abnormal relaxation pattern). Procedure Details * A complete two-dimensional transthoracic echocardiogram was performed (2D, M-mode, Doppler and color flow Doppler). Left Ventricle * The left ventricle is normal in size. * There is severe concentric left ventricular hypertrophy. * The basal septum is thickened and angulated consistent with sigmoid septum. * Left ventricular systolic function is normal. * Ejection Fraction = 60-65%. * The left ventricular wall motion is normal. * No regional wall motion abnormalities noted. Right Ventricle * The right ventricle is normal in size and function. Atria * The left atrium is mildly dilated. * Right atrial size is normal. * There is no evidence of atrial septal defect, but resolution does not allow assessment for a patent foramen ovale. Mitral Valve * There is severe mitral annular calcification. * There is no mitral valve stenosis. * Significant mitral regurgitation is absent. Tricuspid Valve * The tricuspid valve is normal. * There is no tricuspid stenosis. * Significant tricuspid regurgitation is absent. * Doppler findings do not suggest pulmonary hypertension. Aortic Valve * The aortic valve is trileaflet. * Aortic valve sclerosis moderate, without significant aortic valvular stenosis. * Aortic stenosis is absent. * There is no significant aortic regurgitation. Pulmonic Valve * The pulmonary valve is not well seen, but the Doppler examination is normal without significant regurgitation or stenosis. Great Vessels * The aortic root and proximal ascending aorta are normal sized. Pericardium/Pleural * There is no pericardial effusion. Great Vessels * Normal inferior vena cava diameter and respiratory variation suggests normal central venous pressure. * Normal inferior vena cava size and collapsability with sniff indicates a normal right atrial pressure of 3 mmHg Left Ventricular Diastolic Function * Grade I diastolic dysfunction, (abnormal relaxation pattern). MMode 2D Measurements and Calculations IVSd 1.2 cm LVIDd 3.4 cm LVIDs 2.4 cm LVPWd 1.1 cm IVS/LVPW 1.0 FS 29.9 % EDV(Teich) 48.7 ml ESV(Teich) 20.4 ml EF(Teich) 58.2 % EDV(cubed) 40.6 ml ESV(cubed) 14.0 ml EF(cubed) 65.6 % LV mass(C)d 125.0 grams LV mass(C)dI 71.9 grams/m\S\2 CO(Teich) 2.3 l/min CI(Teich) 1.3 l/min/m\S\2 SV(Teich) 28.3 ml SI(Teich) 16.3 ml/m\S\2 CO(cubed) 2.2 l/min CI(cubed) 1.3 l/min/m\S\2 SV(cubed) 26.6 ml SI(cubed) 15.3 ml/m\S\2 Ao root diam 2.9 cm Ao root area 6.5 cm\S\2 ACS 1.4 cm LA dimension 2.2 cm asc Aorta Diam 3.2 cm LA/Ao 0.77 LVAd ap4 22.3 cm\S\2 LVLd ap4 7.2 cm EDV(MOD-sp4) 57.2 ml LVAs ap4 13.9 cm\S\2 LVLs ap4 6.4 cm ESV(MOD-sp4) 25.0 ml EF(MOD-sp4) 56.3 % LVAd ap2 22.1 cm\S\2 LVLd ap2 7.4 cm EDV(MOD-sp2) 54.3 ml LVAs ap2 13.5 cm\S\2 LVLs ap2 6.7 cm ESV(MOD-sp2) 24.4 ml EF(MOD-sp2) 55.1 % CO(MOD-sp4) 2.6 l/min CI(MOD-sp4) 1.5 l/min/m\S\2 SV(MOD-sp4) 32.2 ml SI(MOD-sp4) 18.5 ml/m\S\2 CO(MOD-sp2) 2.5 l/min CI(MOD-sp2) 1.4 l/min/m\S\2 SV(MOD-sp2) 29.9 ml SI(MOD-sp2) 17.2 ml/m\S\2 Doppler Measurements and Calculations MV E max leonardo 50.4 cm/sec MV A max leonardo 133.9 cm/sec MV E/A 0.38 Ao V2 max 149.7 cm/sec Ao max PG 9.0 mmHg Ao max PG (full) 6.6 mmHg LV V1 max PG 2.3 mmHg LV V1 max 76.6 cm/sec PA V2 max 100.4 cm/sec PA max PG 4.0 mmHg PA acc slope 1044.1 cm/sec\S\2 PA acc time 0.07 sec PA pr(Accel) 48.9 mmHg
[2016-11-26] MEDS ORDERED: METOPROLOL TARTRATE 1 MG/ML VIAL IV PRN (10:15)
--- NOTE | 2016-11-26 10:31 | Progress Note ---
Medicine Progress Note Date & Time of Visit: Nov 26, 2016 at 10:19. Subjective patient seen resting in bed, comfortable, appears anxious says she is "discouraged, because no one seems to know what is going on" denies chest pain, dyspnea, palpitations, dizziness denies cough, sputum production no changes with urination, or BMs denies fever/chills has been having weakness x at least 1 month, appetite is fair no other symptom Objective Last 8 Hrs Date Time Temp Pulse Resp B/P Pulse Ox O2 Delivery O2 Flow Rate FiO2 11/26/16 08:09 36.8 86 18 174/101 93 Room Air 11/26/16 04:00 Room Air 11/26/16 03:59 36.8 90 20 160/96 92 Room Air Physical Exam: General- oriented x 3, not in distress, speaks in sentences with no effort Head- atraumatic Eyes- EOMI, anicteric ENT- (+) dry oral mucosa Neck- supple, no JVD, no adenopathy, no thyromegaly; no bruits appreciated Lungs- clear to auscultation bilaterally Heart- normal rate, regular rhythm; no murmurs Abdomen- normal bowel sounds, soft, nontender Extremities- no pretibial edema, no calf tenderness Neuro- alert, oriented x 3; no gross focal deficits Skin- warm & dry Laboratory Results: Last 24 Hours Test 11/25/16 20:34 11/25/16 20:35 11/25/16 22:00 11/26/16 05:20 Bedside Glucose 129 mg/dl White Blood Count 9.72 K/uL 8.42 K/uL Red Blood Count 4.67 M/uL 4.42 M/uL Hemoglobin 15.2 g/dL 14.6 g/dL Hematocrit 45.2 % 43.4 % Mean Corpuscular Volume 96.8 fL 98.2 fL Mean Corpuscular Hemoglobin 32.5 pg 33.0 pg Mean Corpuscular Hemoglobin Concent 33.6 g/dl 33.6 g/dl Platelet Count 227 K/uL 208 K/uL Mean Platelet Volume 9.5 fL 9.7 fL Neutrophils (%) (Auto) 81.5 % 61.4 % Lymphocytes (%) (Auto) 11.0 % 27.9 % Monocytes (%) (Auto) 5.5 % 6.9 % Eosinophils (%) (Auto) 0.4 % 2.9 % Basophils (%) (Auto) 0.2 % 0.2 % Neutrophils # (Auto) 7.92 K/uL 5.17 K/uL Lymphocytes # (Auto) 1.07 K/uL 2.35 K/uL Monocytes # (Auto) 0.53 K/uL 0.58 K/uL Eosinophils # (Auto) 0.04 K/uL 0.24 K/uL Basophils # (Auto) 0.02 K/uL 0.02 K/uL RDW Standard Deviation 47.6 fL 49.1 fL RDW Coefficient of Variation 13.4 % 13.6 % Immature Granulocyte % (Auto) 1.4 % 0.7 % Immature Granulocyte # (Auto) 0.14 K/uL 0.06 K/uL Prothrombin Time 11.2 SECONDS Prothromb Time International Ratio 1.0 Activated Partial Thromboplast Time 25.9 SECONDS Partial Thromboplastin Ratio 1.0 Sodium Level 133 mmol/L 138 mmol/L Potassium Level 5.3 mmol/L 4.4 mmol/L Chloride Level 97 mmol/L 101 mmol/L Carbon Dioxide Level 32 mmol/L 34 mmol/L Anion Gap 4.0 mmol/L 3.0 mmol/L Blood Urea Nitrogen 48 mg/dl 42 mg/dl Creatinine 2.00 mg/dl 1.60 mg/dl Est Creatinine Clear Calc Drug Dose 22.6 ml/min 28.3 ml/min Estimated GFR () 27.8 36.4 Estimated GFR (Non- 24.0 31.4 BUN/Creatinine Ratio 24.0 26.0 Random Glucose 144 mg/dl 89 mg/dl Calcium Level 9.0 mg/dl 8.8 mg/dl Magnesium Level 1.4 mg/dl 1.6 mg/dl Total Bilirubin 0.5 mg/dl Direct Bilirubin 0.2 mg/dl Aspartate Amino Transf (AST/SGOT) 22 U/L Alanine Aminotransferase (ALT/SGPT) 34 U/L Alkaline Phosphatase 63 U/L Total Creatine Kinase 144 U/L Creatine Kinase MB 7.9 ng/ml 8.5 ng/ml Creatine Kinase MB Ratio 5.5 Troponin I 0.062 ng/ml 0.086 ng/ml Pro-B-Type Natriuretic Peptide 975 pg/ml Total Protein 7.4 gm/dl Albumin 3.8 gm/dl Lipase 157 U/L Thyroid Stimulating Hormone (TSH) 0.897 uIu/ml Urine Color YELLOW Urine Appearance CLEAR Urine pH 5.5 Urine Specific [place] 1.009 Urine Protein NEG Urine Glucose (UA) NEG Urine Ketones NEG Urine Occult Blood NEG Urine Nitrite NEG Urine Bilirubin NEG Urine Urobilinogen NEG Urine Leukocyte Esterase SMALL Urine WBC (Auto) 5-10 /hpf Urine RBC (Auto) 0-4 /hpf Urine Hyaline Casts (Auto) 1-5 /lpf Urine Epithelial Cells (Auto) 10-20 /lpf Urine Bacteria (Auto) NEG Estimated Average Glucose 148 mg/dl Hemoglobin A1c 6.8 % Triglycerides Level 131 mg/dl Cholesterol Level 161 mg/dl HDL Cholesterol 55 mg/dl LDL Cholesterol, Calculated 80 mg/dl VLDL Cholesterol, Calculated 26 mg/dl Cholesterol/HDL Ratio 2.9 Test 11/26/16 05:25 11/26/16 06:22 11/26/16 07:26 Creatine Kinase MB Ratio Bedside Glucose 78 mg/dl Activated Partial Thromboplast Time 53.2 SECONDS Partial Thromboplastin Ratio 2.0 Date/Time Source Procedure Growth Status 11/25/16 22:00 Urine , Clean Catch Urine Culture Pending Received Assessment & Plan 76 year old female with history of DM, HTN, HLD, Psoriasis, Depression, Osteoarthritis ACUTE RENAL FAILURE ON CKD 3 Likely secondary to dehydration, Bactrim, lisinopril Cr 1.07 at [facility] -- Crea improved from 2 to 1.6 -- continue IV fluids -- hold Lisinopril, Lasix monitor Hyperkalemia Likely secondary to RITA resolved EKG CHANGES - INFERIOR LEAD Q WAVES - no cardiac symptoms New Q waves in inferior leads Troponin:0.062--> 0.08 - echo: * -- Conclusions -- * There is severe concentric left ventricular hypertrophy. * The basal septum is thickened and angulated consistent with sigmoid septum. * No regional wall motion abnormalities noted. * The LV Ejection Fraction = 60-65%. * The right ventricle is normal in size and function. * The left atrium is mildly dilated. * Aortic valve sclerosis moderate, without significant aortic valvular stenosis. * There is severe mitral annular calcification. * Grade I diastolic dysfunction, (abnormal relaxation pattern). - Cardiology consulted defer stress test as patient has elevated BP - on Heparin IV, Aspirin, Statin Hypertension Lasix and Lisinopril on hold due to acute renal failure Amlodipine 5mg started Hypomagnesemia Replace and monitor R/O UTI UA: small leukocyte esterase asymptomatic, afebrile ff up cultures LEFT LOWER LOBE ATELECTASIS no signs and symptoms of pneumonia observe Diaphoresis/Weight loss CT ABD: no acute pathology CXR: Mild left basilar opacity, likely atelectasis Afebrile, No leukocytosis Generalized Weakness thyroid function test normal may be from Prednisone use since August 2016 agree with tapering to 5mg daily, then stop as outpatient DM II Diet controlled a1c 6.8 ISS, Accu checks Hypothyroidism Continue levothyroxine Cholelithiasis follows as outpatient DVT Px: On IV heparin Code Status: DNI only: on my discussion with patient Disposition: Continue monitoring in Tele lives at home with patient declines PT/OT, explained benefits, she still declines at this time citing previous experience Current Inpatient Medications: Current Inpatient Medications Medications (Trade) Dose Ordered Sig/Fab Route Start Time Stop Time Status Last Admin Dose Admin Sodium Chloride (Nss 1000ml) 1,000 ml @ 100 mls/hr Q10H IV 11/25/16 23:11 12/25/16 23:10 11/26/16 08:39 100 MLS/HR Acetaminophen (Tylenol Tab) 650 mg Q4H PRN PO 11/25/16 23:15 12/25/16 23:14 Ondansetron HCl (Zofran Inj) 4 mg Q6H PRN IV 11/25/16 23:15 12/25/16 23:14 Nitroglycerin (Nitrostat Tab) 0.4 mg UD PRN SL 11/25/16 23:15 12/25/16 23:14 Aspirin (Ecotrin Tab) 81 mg QAM PO 11/26/16 09:00 12/26/16 08:59 11/26/16 08:34 81 MG Ascorbic Acid (Vitamin C Tab) 500 mg QAM PO 11/26/16 09:00 12/26/16 08:59 11/26/16 08:32 500 MG Baclofen (Lioresal Tab) 10 mg TID PRN PO 11/25/16 23:45 12/25/16 23:44 Dorzolamide/ Timolol (Cosopt Op Soln) 1 drops BID OP 11/26/16 09:00 12/26/16 08:59 11/26/16 08:40 1 DROPS Duloxetine HCl (Cymbalta Cap) 30 mg DAILY PO 11/26/16 09:00 12/26/16 08:59 11/26/16 08:34 30 MG Latanoprost (Xalatan Oph Soln) 1 drops HS OPB 11/26/16 21:00 12/26/16 20:59 Levothyroxine Sodium (Synthroid Tab) 75 mcg DAILYBB PO 11/26/16 06:00 12/26/16 05:59 11/26/16 06:24 75 MCG Loratadine (Claritin Tab) 10 mg HS PO 11/26/16 21:00 12/26/16 20:59 Simethicone (Mylicon Chew Tab) 80 mg QID PRN PO 11/25/16 23:45 12/25/16 23:44 Simvastatin (Zocor Tab) 20 mg HS PO 11/26/16 21:00 12/26/16 20:59 Venlafaxine HCl (effeXOR EXTENDED REL CAP) 37.5 mg QAM PO 11/26/16 09:00 12/26/16 08:59 11/26/16 08:36 37.5 MG Venlafaxine HCl (effeXOR EXTENDED REL CAP) 75 mg QAM PO 11/26/16 09:00 12/26/16 08:59 11/26/16 08:36 75 MG Ferrous Sulfate (Feosol Tab) 325 mg BID PO 11/26/16 09:00 12/26/16 08:59 11/26/16 08:32 325 MG Glucosamine Sulfate (Glucosamine Cap) 1,000 mg BID PO 11/26/16 09:00 12/26/16 08:59 11/26/16 08:31 1,000 MG Pantoprazole Sodium (Protonix Tab) 40 mg DAILY PO 11/26/16 09:00 12/26/16 08:59 11/26/16 08:28 40 MG Oxycodone HCl 30 mg 30 mg Q12H PO 11/26/16 09:00 12/10/16 08:59 11/26/16 08:29 30 MG Heparin Sodium/ Dextrose (Heparin 25,000 Unit/500ml D5W) 500 ml @ 21 mls/hr [id number] PRN IV 11/26/16 01:15 12/26/16 01:14 11/26/16 01:35 21 MLS/HR Insulin Aspart (novoLOG ASPART) SLIDING SCALE If C... Q6 SC 11/26/16 06:00 12/26/16 05:59 Glucose (Glucose 40% Gel) 15-30 GRAMS 15 GRAMS... UD PRN PO 11/26/16 02:30 12/26/16 02:29 Glucose (Glucose Chew Tab) 4-8 Tablets 4 Tabl... UD PRN PO 11/26/16 02:30 12/26/16 02:29 Dextrose (Dextrose 50% 50ML Syringe) 25-50ML OF 50% DW IV FOR... UD PRN IV 11/26/16 02:30 12/26/16 02:29 Glucagon (Glucagon Inj) 1 mg UD PRN SQ 11/26/16 02:30 12/26/16 02:29 Miscellaneous Information (Consult Glycemic Management Pharmacy) 1 ea UD PRN N/A 11/26/16 03:07 12/26/16 03:06 Amlodipine Besylate (Norvasc Tab) 5 mg QAM PO 11/26/16 09:00 12/26/16 08:59 11/26/16 08:36 5 MG Prednisone (PredniSONE TAB) 5 mg DAILY PO 11/27/16 09:00 12/27/16 08:59 Metoprolol Tartrate (Lopressor Iv) 5 mg Q6 PRN IV. 11/26/16 10:15 12/26/16 10:14 UNV
[2016-11-26] MEDS ORDERED: MAGNESIUM OXIDE 400 MG TAB PO ONE (10:32)
[2016-11-26] MEDS ORDERED: MAGNESIUM SULFATE 1GM / D5W 1 GM in PREMIXED IN D5W 100 ML IV ONE (11:00)
--- NOTE | 2016-11-26 11:50 | CARDIOLOGY CONSULTATION ---
DATE OF CONSULTATION: 11/26/2016 HISTORY OF PRESENT ILLNESS: Rebecca Rodrigez is a 76-year-old female seen in cardiology consultation per the request of Dr. Alcazar for cardiology evaluation of abnormal EKG and mild elevation in cardiac enzymes. Her primary care provider is Dr. Phi Kline at [facility]. She has no previously established relationship with cardiology. The patient has a history of diet controlled type 2 diabetes mellitus as well as dyslipidemia. She has a chart history of hypertension and per her outpatient records her blood pressure has been well controlled in the past with treatment including lisinopril and furosemide. She has a history of chronic lower extremity edema and has been labeled as having lymphedema in the past and this apparently has been controlled with her furosemide. Also of interest, the patient had a history of iron deficiency anemia and she underwent colonoscopy and EGD at [facility] in May 2016. 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 The HD revealed a small healed ulcer at the prepyloric antrum at that time. The patient's hemoglobin has subsequently normalized. Her home medication list; however, does include prednisone. It appears that prednisone had been started due to lumbar back pain and in August 2016, there was an order for prednisone 10 mg to be taken as directed. The patient states that she has been taking 10 mg for approximately the last 3 months. The patient presented to [facility] yesterday having being referred to the Emergency Room from her primary care provider's office. She had been seen there for post-hospital followup having recently been in the Emergency Department at [place] on 11/20/2016. At that time, she was describing urinary urgency and had dark colored urine. She was prescribed a 7-day dose of Bactrim. Her urine culture revealed mixed cami and no definite pathogen. She was noted to have hypomagnesemia at that point with a magnesium level of 1 mmol/L, and received IV magnesium supplementation in the Emergency Department. Yesterday, she described no fever or vomiting. She was noting intermittent episodes of heavy perspiration and a cramping sensation in her abdomen. I asked her about this and she states this has been going on for the last few weeks. The heavy perspiration comes on during the day and at night for no particular rhyme or reason. She notes transient abdominal discomfort that is not associated with exertion. An EKG performed at her primary care provider's office revealed sinus tachycardia at 101 beats per minute, left ventricular hypertrophy by voltage criteria and possible lateral infarct as well as possible inferior infarction, both age undetermined changes. Review of that EKG reveals inferior T waves in III and aVF and poor R-wave progression in the lateral precordial leads. Repeat EKG performed at the Emergency Room here last evening at 1946 revealed similar findings. However, the heart rate had improved to some degree. Repeat tracing this morning revealed a rate of 92 beats per minute and the previously noted poor R-wave progression in the lateral precordial leads had resolved. A more prominent R-wave is noted in aVF and therefore the age undetermined inferior infarction pattern is no longer present. The EKG tracings x3 did not reveal any significant ST segment depression. When I discussed things with the patient, she states that she has had no recent chest pressure, no recent subjective shortness of breath. She noted urinary urgency that has since resolved. Review of her blood pressures revealed that she has had significant hypertension overnight last night with several readings in the 193-107 range, most recently 174/101. At the bedside, the patient is in no acute distress. Telemetry reveals sinus rhythm with occasional PVCs. PAST MEDICAL HISTORY: 1. Type 2 diabetes mellitus. 2. Hypertension. 3. Dyslipidemia. 4. Venous insufficiency. 5. History of past iron deficiency anemia. 6. History of lumbar back pain for which she is on narcotic analgesics. PAST SURGICAL HISTORY: History of colonoscopy and EGD as noted above with last procedures in May 2016. She had a nonischemic response dobutamine stress echocardiogram in 2009. History of rotator cuff repair and umbilical hernia repair. SOCIAL HISTORY: She is . She is a nonsmoker. FAMILY HISTORY: Notable for mother with CAD and she at the age of 65. Her father had a history of diabetes and at age of 67. Her brother had a stroke and in his 50s. She has a daughter that in her 30s of unexplained causes perhaps cardiac. COMPLETE REVIEW OF SYSTEMS: A 10-point review of systems is reviewed and is negative with the exception of that above. ALLERGIES: GABAPENTIN AND LYRICA. HOME MEDICATIONS: Reviewed: Refer to the electronic medical record. PHYSICAL EXAMINATION: VITAL SIGNS: Temperature 36.8. Heart rate 86. Most recent blood pressure 174/101. Pulse oximetry 93% on room air. GENERAL APPEARANCE: Awake and oriented x3, in no acute distress. HEENT: Extraocular muscles were intact. Pupils are equal and reactive to light. NECK: No bruits or cervical lymphadenopathy. CARDIOVASCULAR: Regular rate and rhythm. No murmurs. ABDOMEN: Positive bowel sounds. Soft, nontender, and nondistended. EXTREMITIES: No clubbing, cyanosis or edema with positive venous varicose veins. LUNGS: Clear. No rales, rhonchi or wheezing. DIAGNOSTIC DATA: EKG tracings as outlined above. LABORATORY DATA: Hemoglobin 14.6, platelet count 208. PTT 53.2 on heparin infusion. Sodium 138, potassium 4.4, BUN 48 on presentation and down to 42 this morning, creatinine 2.0 on admission and 1.6 at present. Cholesterol: LDL cholesterol 80 mg per deciliter. Urinalysis reveals positive leukocyte esterase, negative bacteria. Urine culture is currently pending. CT of the abdomen and pelvis, No urinary calculi or hydroureteronephrosis, no cholelithiasis. No CT evidence of acute cholecystitis. Chest x-ray per radiology report, mild left basilar opacity, possibly atelectasis. No evidence of congestive heart failure. Transthoracic echocardiogram performed this morning and reviewed independently by the undersigned: Severe concentric left ventricular hypertrophy is present with thickening of the basal septum consistent with sigmoid septum. No regional wall motion abnormalities are noted. The qualitative left ventricular ejection fraction is normal at 60-65%. Right ventricular chamber size and systolic function is normal. Moderate aortic valve sclerosis without stenosis is present. Severe mitral annular calcification is noted without mitral regurgitation or mitral stenosis. Grade 1 diastolic dysfunction was noted. ADDITIONAL LABORATORY DATA: A single CPK measurement performed at 2034 was within normal limits. CK-MB fraction was elevated x2 at 7.9 and 8.5 ng/mL. Troponin I is mildly elevated at 0.062 ng/ml and 0.086 ng/mL. FINAL IMPRESSION: A 76-year-old female. 1. Atypical symptoms of perspiration transient abdominal discomfort with recent urinary symptoms noted. 2. Presentation with accelerated hypertension above her typical baseline. 3. Echocardiographic findings consistent with underlying hypertensive heart disease with severe concentric left ventricular hypertrophy and diastolic dysfunction. 4. Acute kidney injury, on baseline stage III chronic kidney disease. DISCUSSION AND RECOMMENDATIONS: Review of the patient's outpatient labs reveals that she had a normal creatinine dating back to 2012 at 1.0 mg per deciliter. In April 2016, her creatinine was 1.5 mg per deciliter and on 08/26/2016, it was 1.1 mg per deciliter. It appears that her typical baseline is anywhere from 1.1-1.7. She certainly appears to have been in an acute kidney injury on presentation and her renal function has trended toward improvement. She is currently receiving normal saline at 100 mL per hour. On physical exam, she does not have any roula volume overload and I think it is reasonable to continue her fluids. Mild hypomagnesemia is present with the magnesium level 1.6 for which she received IV replacement earlier this hospital stay. At present, I am not convinced that the EKG changes noted yesterday are indicative of an acute coronary syndrome. It appears that the Q-waves in the inferior leads as well as the poor R-wave progression and lateral leads have resolved on serial EKG tracings and I think there is a suggestion of lead placement-related changes on her EKG. No significant ST changes were present to suggest active ischemia. At present, I think her mild troponin elevation can be explained by demand ischemia from elevated blood pressure, sinus tachycardia, with underlying severe concentric LVH. She is of course at risk for underlying ischemic heart disease, but her symptoms do not seem to be exertional in nature and she has no anginal symptoms at the present time. At the present time, I recommend that we continue her heparin and continue to trend her cardiac enzymes. Continue IV fluids and await her urine culture. I have recommended a onetime dose of IV metoprolol and additional metoprolol as a p.r.n. blood pressure medication for systolic blood pressure greater than 165 mmHg. Her lisinopril is on hold and the primary team has started amlodipine in its place. Further recommendations will be forthcoming depending upon how she feels over the next 24 hours with a possible need for pharmacologic stress testing depending upon her course. MC
--- NOTE | 2016-11-26 11:51 | CARDIOLOGY CONSULTATION ---
Connection lost during dictation. Refer to separate successful consult report. MTDD
[2016-11-26] MEDS ORDERED: NURSING VERBAL MED ORDER ONE ×2 (12:15→12:30)
[2016-11-26] MEDS: BISACODYL 5 MG TABEC PO PRN ×2 (13:53→20:28)
[2016-11-26] MEDS: INSULIN ASPART 100 UNITS/ML 3 ML PEN SC SCH ×2 (17:02→20:33)
--- NOTE | 2016-11-26 17:07 | Cardiology Progress Note ---
Cardiology Progress Note Date of Service Nov 26, 2016. Cardiology Progress Note Last Vital Signs Documentation Date Time Temp Pulse Resp B/P Pulse Ox O2 Delivery O2 Flow Rate FiO2 11/26/16 16:35 70 22 170/95 93 Room Air 11/26/16 15:43 36.6 BP was improved after dose of IV metoprolol but has trended back up. I called nursing, will give dose of PRN metoprolol that is due at 1800 early and start nitro paste if BP still above goal. Andres Erwin, DO
[2016-11-26] MEDS: NITROGLYCERIN OINT 2% 1GM PACKET EXT SCH ×2 (18:00→23:48)
[2016-11-26] MEDS: LATANOPROST 0.005% OP SOLN 2.5 ML BTL OPB SCH (20:30)
[2016-11-26] MEDS: LORATADINE 10 MG TAB PO SCH (20:32)
[2016-11-26] MEDS: SIMVASTATIN 20 MG TAB PO SCH (20:32)
[2016-11-26] MEDS: MAGNESIUM OXIDE 400 MG TAB PO SCH (20:33)
[2016-11-26] MEDS: ONDANSETRON INJ 2 MG/ML 2 ML VIAL IV PRN (20:53)
[2016-11-27] MEDS ORDERED: PROMETHAZINE HCL INJ 12.5 MG in SODIUM CHLORIDE 0.9% 50ML 50 ML IV ONE (00:15)
[2016-11-27 03:55] VITALS: BP 134/86; TEMP 36.5; O2SAT 97
[2016-11-27] MEDS: SODIUM CHLORIDE 0.9% 1000ML 1,000 ML IV SCH (05:41)
[2016-11-27] MEDS: NITROGLYCERIN OINT 2% 1GM PACKET EXT SCH (05:42)
[2016-11-27] MEDS: LEVOTHYROXINE 75 MCG TAB PO SCH (05:48)
[2016-11-27] MEDS: ONDANSETRON INJ 2 MG/ML 2 ML VIAL IV PRN ×2 (05:50→20:01)
[2016-11-27] MEDS: INSULIN ASPART 100 UNITS/ML 3 ML PEN SC SCH ×2 (07:00→08:20)
[2016-11-27 07:34] LABS: PARTIAL THROMBOPLASTIN RATIO 3.4
[2016-11-27 07:44] LABS: CALCIUM 8.7 mg/dl (8.5-10.1); MAGNESIUM 1.9 mg/dl (1.8-2.4); POTASSIUM 4.4 mmol/L (3.5-5.1)
[2016-11-27 08:00] VITALS: BP 161/86; PULSE 76; TEMP 36.6; O2SAT 96
[2016-11-27] MEDS: PANTOprazole SOD 40 MG TAB PO SCH (08:12)
[2016-11-27] MEDS: BISACODYL 5 MG TABEC PO PRN (08:12)
[2016-11-27] MEDS: GLUCOSAMINE SULFATE 500 MG CAP PO SCH ×2 (08:13→19:56)
[2016-11-27] MEDS: FERROUS SULFATE 325 MG TAB PO SCH ×2 (08:14→19:55)
[2016-11-27] MEDS: AMLODIPINE BESYLATE 5 MG TAB PO SCH (08:14)
[2016-11-27] MEDS: ASPIRIN 81 MG ECTAB PO SCH (08:14)
[2016-11-27] MEDS: ASCORBIC ACID 500 MG TAB PO SCH (08:15)
[2016-11-27] MEDS: VENLAFAXINE HCL XR 37.5 MG CAPXR PO SCH (08:16)
[2016-11-27] MEDS: DULOXETINE (CYMBALTA) 30 MG CAP PO SCH (08:16)
[2016-11-27] MEDS: VENLAFAXINE HCL XR 75 MG CAPXR PO SCH (08:17)
[2016-11-27] MEDS: MAGNESIUM OXIDE 400 MG TAB PO SCH ×2 (08:17→19:56)
[2016-11-27] MEDS: DORZOLAMIDE/TIMOLOL 22.3/6.8MG/ML 10 ML BTL OP SCH ×2 (08:20→19:57)
[2016-11-27] MEDS: OXYCODONE HCL 10 MG TABCR (OXYCONTIN) PO SCH ×2 (08:22→19:56)
[2016-11-27] MEDS: HEPARIN 25,000 UNIT/500ML D5W 500 ML IV PRN (08:54)
[2016-11-27] MEDS ORDERED: PROMETHAZINE HCL INJ 12.5 MG in SODIUM CHLORIDE 0.9% 50ML 50 ML IV PRN (10:00)
[2016-11-27] MEDS ORDERED: DOCUSATE SODIUM/SENNA 50/8.6MG TAB PO ONE (11:15)
--- NOTE | 2016-11-27 11:28 | Progress Note ---
Medicine Progress Note Date & Time of Visit: Nov 27, 2016 at 11:15. Subjective events of last night noted this AM, patient had 1 episode of vomiting- patient reports it was her breakfast with green color denies abdominal pain, (+) flatus but no BM since admission no headache this morning, no chest pain/dyspnea/palpitations denies other symptoms Objective Last 8 Hrs Date Time Temp Pulse Resp B/P Pulse Ox O2 Delivery O2 Flow Rate FiO2 11/27/16 08:00 36.6 76 20 161/86 96 Room Air 11/27/16 08:00 Room Air 11/27/16 04:00 Room Air 11/27/16 03:55 36.5 134/86 97 Room Air Physical Exam: General- oriented x 3, not in distress, speaks in sentences with no effort, no accessory muscle use Eyes- anicteric ENT- (+) dry oral mucosa Neck- no JVD Lungs- clear breath sounds bilaterally Heart- normal rate, regular rhythm; no murmurs Abdomen- normal bowel sounds, non distended, soft, nontender Extremities- no pretibial edema, no calf tenderness Neuro- alert, oriented x 3; no gross focal deficits Skin- warm & dry Laboratory Results: Last 24 Hours Test 11/26/16 11:25 11/26/16 11:26 11/26/16 11:30 11/26/16 16:35 Creatine Kinase MB Ratio Bedside Glucose 185 mg/dl 87 mg/dl Creatine Kinase MB 8.0 ng/ml Troponin I 0.073 ng/ml Test 11/26/16 17:25 11/26/16 17:35 11/26/16 20:19 11/26/16 23:04 Creatine Kinase MB Ratio Creatine Kinase MB 7.2 ng/ml 6.0 ng/ml Troponin I 0.048 ng/ml 0.036 ng/ml Bedside Glucose 129 mg/dl Test 11/27/16 06:30 11/27/16 06:33 Activated Partial Thromboplast Time 87.4 SECONDS Partial Thromboplastin Ratio 3.4 Sodium Level 137 mmol/L Potassium Level 4.4 mmol/L Chloride Level 102 mmol/L Carbon Dioxide Level 31 mmol/L Anion Gap 4.0 mmol/L Blood Urea Nitrogen 25 mg/dl Creatinine 1.00 mg/dl Est Creatinine Clear Calc Drug Dose 45.2 ml/min Estimated GFR () 64.3 Estimated GFR (Non- 55.5 BUN/Creatinine Ratio 25.0 Random Glucose 100 mg/dl Calcium Level 8.7 mg/dl Magnesium Level 1.9 mg/dl Troponin I 0.039 ng/ml Bedside Glucose 95 mg/dl Assessment & Plan 76 year old female with history of DM- diet controlled, HTN, HLD, Psoriasis, Depression, Osteoarthritis EKG CHANGES - INFERIOR LEAD Q WAVES - no cardiac symptoms New Q waves in inferior leads based on initial EKGs Troponin:0.062--> 0.08--> 0.03 - echo: * -- Conclusions -- * There is severe concentric left ventricular hypertrophy. * The basal septum is thickened and angulated consistent with sigmoid septum. * No regional wall motion abnormalities noted. * The LV Ejection Fraction = 60-65%. * The right ventricle is normal in size and function. * The left atrium is mildly dilated. * Aortic valve sclerosis moderate, without significant aortic valvular stenosis. * There is severe mitral annular calcification. * Grade I diastolic dysfunction, (abnormal relaxation pattern). - Cardiology consulted -- troponin normal today EKG no signs of acute ischemia -- d/c heparin per discussion with Dr. Torres may need Aspirin as outpatient awaiting further recommendations including possible stress test per Cardiology service ACUTE RENAL FAILURE ON CKD 3 Likely secondary to dehydration, Bactrim, lisinopril Crea 1.1 as of Aug 2016 -- Crea improved from 2 to 1.0 -- d/c IV fluids today -- Lisinopril held, possible resumption today Lasix held, resume in AM if with no vomiting Hypertension Lasix and Lisinopril held Amlodipine 5mg started repeat BP this afternoon may likely resume Lisinopril today if BP still elevated Lasix held Nausea and Vomiting likely from constipation, Nitropaste? - no distension, good Bowel sounds, (+) flatus - CT abdomen on admission: (+) moderate hiatal hernia (+) moderate stool - add Senokot S hold Dulcolax - d/c Nitropaste - PRN Zofran and Phenergan Hyperkalemia Likely secondary to RITA resolved Hypomagnesemia resolved R/O UTI UA: small leukocyte esterase urine culture negative so far no UTI symptoms Left Lower Lobe Atelectasis no signs and symptoms of pneumonia observe Diaphoresis/Weight loss CT ABD: no acute pathology CXR: Mild left basilar opacity, likely atelectasis -- Afebrile, No leukocytosis Generalized Weakness thyroid function test normal may be from Prednisone use since August 2016 agree with tapering to 5mg daily, then stop as outpatient DM II Diet controlled a1c 6.8 hold ISS as patient has borderline BSGs Accu checks Hypothyroidism Continue levothyroxine Cholelithiasis follow as outpatient DVT Px: was on IV heparin Code Status: DNI only: per discussion with patient Disposition: Continue monitoring in Tele lives at home with patient declines PT/OT, explained benefits, she still declines at this time citing previous experience anticipate to d/c home when medically stable, cleared by furniture restorer Current Inpatient Medications: Current Inpatient Medications Medications (Trade) Dose Ordered Sig/Fab Route Start Time Stop Time Status Last Admin Dose Admin Acetaminophen (Tylenol Tab) 650 mg Q4H PRN PO 11/25/16 23:15 12/25/16 23:14 Ondansetron HCl (Zofran Inj) 4 mg Q6H PRN IV 11/25/16 23:15 12/25/16 23:14 11/27/16 05:50 4 MG Nitroglycerin (Nitrostat Tab) 0.4 mg UD PRN SL 11/25/16 23:15 12/25/16 23:14 Aspirin (Ecotrin Tab) 81 mg QAM PO 11/26/16 09:00 12/26/16 08:59 11/27/16 08:14 81 MG Ascorbic Acid (Vitamin C Tab) 500 mg QAM PO 11/26/16 09:00 12/26/16 08:59 11/27/16 08:15 500 MG Baclofen (Lioresal Tab) 10 mg TID PRN PO 11/25/16 23:45 12/25/16 23:44 Dorzolamide/ Timolol (Cosopt Op Soln) 1 drops BID OP 11/26/16 09:00 12/26/16 08:59 11/27/16 08:20 1 DROPS Duloxetine HCl (Cymbalta Cap) 30 mg DAILY PO 11/26/16 09:00 12/26/16 08:59 11/27/16 08:16 30 MG Latanoprost (Xalatan Oph Soln) 1 drops HS OPB 11/26/16 21:00 5/26/17 20:59 11/26/16 20:30 1 DROPS Levothyroxine Sodium (Synthroid Tab) 75 mcg DAILYBB PO 11/26/16 06:00 12/26/16 05:59 11/26/16 06:24 75 MCG Loratadine (Claritin Tab) 10 mg HS PO 11/26/16 21:00 12/26/16 20:59 11/26/16 20:32 10 MG Simethicone (Mylicon Chew Tab) 80 mg QID PRN PO 11/25/16 23:45 12/25/16 23:44 Simvastatin (Zocor Tab) 20 mg HS PO 11/26/16 21:00 12/26/16 20:59 11/26/16 20:32 20 MG Venlafaxine HCl (effeXOR EXTENDED REL CAP) 37.5 mg QAM PO 11/26/16 09:00 12/26/16 08:59 11/27/16 08:16 37.5 MG Venlafaxine HCl (effeXOR EXTENDED REL CAP) 75 mg QAM PO 11/26/16 09:00 12/26/16 08:59 11/27/16 08:17 75 MG Ferrous Sulfate (Feosol Tab) 325 mg BID PO 11/26/16 09:00 12/26/16 08:59 11/27/16 08:14 325 MG Glucosamine Sulfate (Glucosamine Cap) 1,000 mg BID PO 11/26/16 09:00 12/26/16 08:59 11/27/16 08:13 1,000 MG Pantoprazole Sodium (Protonix Tab) 40 mg DAILY PO 11/26/16 09:00 12/26/16 08:59 11/27/16 08:12 40 MG Oxycodone HCl 30 mg 30 mg Q12H PO 11/26/16 09:00 12/10/16 08:59 11/27/16 08:22 30 MG Heparin Sodium/ Dextrose (Heparin 25,000 Unit/500ml D5W) 500 ml @ 19 mls/hr Q24H PRN IV 11/26/16 01:15 12/26/16 01:14 11/27/16 08:54 19 MLS/HR Glucose (Glucose 40% Gel) 15-30 GRAMS 15 GRAMS... UD PRN PO 11/26/16 02:30 12/26/16 02:29 Glucose (Glucose Chew Tab) 4-8 Tablets 4 Tabl... UD PRN PO 11/26/16 02:30 12/26/16 02:29 Dextrose (Dextrose 50% 50ML Syringe) 25-50ML OF 50% DW IV FOR... UD PRN IV 11/26/16 02:30 12/26/16 02:29 Glucagon (Glucagon Inj) 1 mg UD PRN SQ 11/26/16 02:30 12/26/16 02:29 Miscellaneous Information (Consult Glycemic Management Pharmacy) 1 ea UD PRN N/A 11/26/16 03:07 12/26/16 03:06 Amlodipine Besylate (Norvasc Tab) 5 mg QAM PO 11/26/16 09:00 12/26/16 08:59 11/27/16 08:14 5 MG Prednisone (PredniSONE TAB) 5 mg DAILY PO 11/27/16 09:00 12/27/16 08:59 11/27/16 08:16 5 MG Metoprolol Tartrate (Lopressor Iv) 5 mg Q6 PRN IV 11/26/16 10:15 12/26/16 10:14 Magnesium Oxide 400 mg 400 mg BID PO 11/26/16 21:00 12/26/16 20:59 11/27/16 08:17 400 MG Promethazine HCl/ Sodium Chloride (Phenergan Inj/ Nss 50ml) 50.5 ml @ 204 mls/hr Q6H PRN IV 11/27/16 10:00 12/27/16 09:59 11/27/16 10:30 204 MLS/HR Senna/Docusate Sodium (Senokot S Tab) 1 tab QAM PO 11/28/16 09:00 12/28/16 08:59 Senna/Docusate Sodium (Senokot S Tab) 1 tab ONE ONCE PO 11/27/16 11:15 11/27/16 11:16
[2016-11-27 11:50] VITALS: BP 145/88; PULSE 77; TEMP 36; O2SAT 97
--- NOTE | 2016-11-27 12:32 | PROGRESS NOTE ---
DATE: 11/27/2016 FOLLOWUP VISIT SUBJECTIVE: The patient is a 76-year-old female who was admitted following a UTI with atypical symptoms of diaphoresis and an abnormal EKG by her primary care physician. Her EKG is consistent with left ventricular hypertrophy. Her echocardiogram reveals left ventricular hypertrophy consistent with hypertensive heart disease. She had dehydration and mild renal insufficiency during admission. I believe the combination of left ventricular hypertrophy, hypertension and renal insufficiency resulted in mild elevation in her cardiac troponins. I do not believe that she had acute coronary syndrome. I think the best thing we can do for her is to manage her hypertension. I do not believe any additional cardiac testing is indicated at this time. OBJECTIVE: VITAL SIGNS: Blood pressure is 140/90, pulse is regular at 77. She is in a sinus rhythm. GENERAL: She is alert and oriented, in no acute distress. HEENT: She is normocephalic. Pupils are equal and reactive to light. Extraocular muscles are intact bilaterally. NECK: The neck veins are flat. Carotids have good upstrokes bilaterally without bruits. Thyroid is nonpalpable. RESPIRATORY: Breath sounds equal bilaterally and clear to auscultation. CARDIOVASCULAR: Heart has a regular rhythm. Normal S1, S2. No S3, S4. No cardiac rubs or murmurs. GASTROINTESTINAL: Abdomen is soft, nontender, without organomegaly. EXTREMITIES: Free of edema, digit clubbing, or cyanosis. NEUROLOGIC: Grossly intact. SKIN: Warm to touch. LYMPH NODES: Negative to palpation. LABORATORY DATA: Creatinine is 1.0, potassium is 4.4, hemoglobin is 14.6, WBC count of 8.42. IMPRESSION: 1. Atypical symptoms. 2. Hypertensive heart disease with left ventricular hypertrophy. RECOMMENDATIONS: As outlined above, I do not believe any additional cardiac testing is indicated at this time. I would make sure that her blood pressure is well controlled before discharge and that she have followup afterward for care of her hypertensive heart disease.
[2016-11-27] MEDS ORDERED: LISINOPRIL 10 MG TAB PO ONE (13:45)
--- NOTE | 2016-11-27 13:47 | Pharmacy Progress Note ---
Glycemic Control: Progress Nt Date of Service Nov 27, 2016. Scope Glycemic Pharmacist consulted by on 11/26/16 for glycemic control and to write orders per [facility] inpatient glycemic control protocol. Objective Accuchecks BSG (last 24hrs): Test 11/26/16 16:35 11/26/16 20:19 11/27/16 06:30 11/27/16 06:33 Bedside Glucose 87 mg/dl (70-90) 129 mg/dl (70-90) 95 mg/dl (70-90) Random Glucose 100 mg/dl (70-99) Test 11/27/16 11:30 Bedside Glucose 117 mg/dl (70-90) Laboratory Data (last 24hrs) Test 11/27/16 06:30 Anion Gap 4.0 mmol/L BUN/Creatinine Ratio 25.0 Blood Urea Nitrogen 25 mg/dl Creatinine 1.00 mg/dl Potassium Level 4.4 mmol/L Sodium Level 137 mmol/L HbA1c: Test 11/26/16 05:20 Hemoglobin A1c 6.8 % (4.5-5.6) H Recent Pertinent Medications Outpatient Anti-diabetic Regimen: * Diet and lifestyle controlled * A1c = 6.8 % from 11/26/16 Assessment & Plan ASSESSMENT: * ADA & AACE recommend a goal blood sugar range 140-180 mg/dl for the majority of critically ill & non-critically ill patients. However, more stringent targets may be selected in individual cases. Initial 11/26/16: * 76 y/o with T2DM who enjoys good glycemic control with diet and lifestyle modifications. * Admitted with tiredness * Currently, BSGs have not been elevated and she has not required any insulin thus far. * Continue with bolus insulin only * add carb ratio in addition to correction factor for both pro- and retro- active bolus insulin dosing * A1c current * add to discharge instructions 11/27/16 * BSGs remain controlled on current inpatient DM regimen. * BSGs ranging 85 - 129 mg/dl during the past 24 hours. * Of note, RITA appears to have resolved. SCr 1.6 yesterday --> 1.0 today. * Still no basal insulin necessary. * Continue current regimen per below. NO CHANGE PLAN FOR INPATIENT GLYCEMIC CONTROL: * No Lantus * Novolog ACHS * Continue correction factor of 30 mg/dl/unit * Continue carb ratio of 1 unit per 10 grams CHO consumed * Continue goal range of Low 140 mg/dL - High 180 mg/dL RECOMMENDATIONS FOR DISCHARGE: * Likely, Ms Rodrigez can continue her home routine at discharge. * Please note that the plan above was derived based on current level of insulin resistance and hospital stress. These recommendations are appropriate for inpatient admission only. Plan of care upon discharge will need to be reassessed to avoid potential outpatient hypo/hyperglycemia. Thank you.
[2016-11-27 14:55] LABS: BASO % 0.5 %; BASO ABS # 0.05 K/uL (0-0.2); COMPLETE YES; EOS % 3.9 %; HEMATOCRIT 43.2 % (37-47); IG% 1.2 %; LYMPH ABS # 2.47 K/uL (1.2-3.4); MEAN CELL VOLUME 99.1 fL (80-100); MEAN CORPUSCULAR HEMOGLOBIN 32.3 pg (25-34); MEAN CORPUSCULAR HGB CONC 32.6 g/dl (32-36); MEAN PLATELET VOLUME 9.8 fL (7.4-10.4); MONO % 7.7 %; NEUT % 59.7 %; PLATELET COUNT 217 K/uL (130-400); RED BLOOD COUNT 4.36 M/uL (4.2-5.4); WHITE BLOOD COUNT 9.14 K/uL (4.8-10.8)
[2016-11-27] MEDS ORDERED: BISACODYL 10 MG SUPP PR ONE (15:16)
[2016-11-27 15:28] VITALS: BP 151/88; PULSE 63; TEMP 36.4; O2SAT 94
[2016-11-27] MEDS ORDERED: BISACODYL 10 MG SUPP PR PRN (15:30)
[2016-11-27] MEDS ORDERED: LACTULOSE SYRUP 10 GM/15 ML BTL 473 ML PO PRN (15:30)
[2016-11-27] MEDS ORDERED: LACTULOSE SYRUP 30 GM/45 ML UDP PO PRN (17:45)
[2016-11-27] MEDS: LORATADINE 10 MG TAB PO SCH (19:55)
[2016-11-27] MEDS: SIMVASTATIN 20 MG TAB PO SCH (19:55)
[2016-11-27] MEDS: LATANOPROST 0.005% OP SOLN 2.5 ML BTL OPB SCH (19:57)
[2016-11-27 20:09] VITALS: BP 163/88; PULSE 75; TEMP 36.4; O2SAT 97
[2016-11-27 23:14] VITALS: BP 155/81; PULSE 89; TEMP 36.8; O2SAT 94
[2016-11-28 05:48] VITALS: BP 122/77; PULSE 70; TEMP 36.6; O2SAT 95
[2016-11-28] MEDS: LEVOTHYROXINE 75 MCG TAB PO SCH (06:15)
[2016-11-28 06:25] LABS: HEMATOCRIT 41.2 % (37-47); MEAN CELL VOLUME 99.3 fL (80-100); MEAN CORPUSCULAR HGB CONC 32.3 g/dl (32-36); MEAN PLATELET VOLUME 9.3 fL (7.4-10.4); PLATELET COUNT 184 K/uL (130-400); RED BLOOD COUNT 4.15 M/uL (4.2-5.4); WHITE BLOOD COUNT 7.59 K/uL (4.8-10.8)
[2016-11-28 06:57] LABS: BUN/CREATININE RATIO 21.1 (10-20); CALCIUM 8.7 mg/dl (8.5-10.1); CREATININE 1.1 mg/dl (0.60-1.20); MAGNESIUM 1.7 mg/dl (1.8-2.4); POTASSIUM 4.3 mmol/L (3.5-5.1)
[2016-11-28 07:29] VITALS: BP 151/85; PULSE 71; TEMP 36.5; O2SAT 97
[2016-11-28] MEDS: OXYCODONE HCL 10 MG TABCR (OXYCONTIN) PO SCH (08:09)
[2016-11-28] MEDS: FERROUS SULFATE 325 MG TAB PO SCH (08:09)
[2016-11-28] MEDS: ASCORBIC ACID 500 MG TAB PO SCH (08:10)
[2016-11-28] MEDS: PANTOprazole SOD 40 MG TAB PO SCH (08:10)
[2016-11-28] MEDS: GLUCOSAMINE SULFATE 500 MG CAP PO SCH (08:13)
[2016-11-28] MEDS: MAGNESIUM OXIDE 400 MG TAB PO SCH (08:13)
[2016-11-28] MEDS: VENLAFAXINE HCL XR 75 MG CAPXR PO SCH (08:14)
[2016-11-28] MEDS: VENLAFAXINE HCL XR 37.5 MG CAPXR PO SCH (08:14)
[2016-11-28] MEDS: DULOXETINE (CYMBALTA) 30 MG CAP PO SCH (08:15)
[2016-11-28] MEDS: DORZOLAMIDE/TIMOLOL 22.3/6.8MG/ML 10 ML BTL OP SCH (08:17)
[2016-11-28] MEDS ORDERED: LISINOPRIL 20 MG TAB PO SCH (09:00)
[2016-11-28] MEDS ORDERED: DOCUSATE SODIUM/SENNA 50/8.6MG TAB PO SCH (09:00)
[2016-11-28] MEDS ORDERED: FUROSEMIDE 20 MG TAB PO ONE (09:03)
[2016-11-28] MEDS ORDERED: MAGNESIUM SULFATE 1GM / D5W 1 GM in PREMIXED IN D5W 100 ML IV SCH (10:00)
[2016-11-28 11:50] VITALS: BP 168/76; PULSE 79; TEMP 36.9; O2SAT 97
--- NOTE | 2016-11-28 15:01 | Progress Note ---
Medicine Progress Note Date & Time of Visit: Nov 28, 2016 at 14:48. Subjective patient evaluated this AM, states she feels more comfortable overall re-evaluated this afternoon, with her daughter Latonya at bedside patient states she feels improved overall (+) good BMs today, no nausea/abdominal pain no chest pain, dyspnea, palpitations states she has some mild lightheadedness when standing otherwise, states she is ready for discharge today no other symptoms Objective Last 8 Hrs Date Time Temp Pulse Resp B/P Pulse Ox O2 Delivery O2 Flow Rate FiO2 11/28/16 12:00 Room Air 11/28/16 11:50 36.9 79 18 168/76 97 Room Air 11/28/16 08:00 Room Air 11/28/16 07:29 36.5 71 20 151/85 97 Room Air Physical Exam: General- oriented x 3, not in distress, speaks in sentences with no effort, no accessory muscle use Eyes- anicteric ENT- moist oral mucosa Neck- no JVD Lungs- clear breath sounds bilaterally, no wheezes/rales Heart- normal rate, regular rhythm; no murmurs Abdomen- normal bowel sounds, non distended, soft, nontender Extremities- no pretibial edema, no calf tenderness Neuro- alert, oriented x 3; no gross focal deficits Skin- warm & dry Laboratory Results: Last 24 Hours Test 11/27/16 15:23 11/27/16 20:07 11/28/16 06:03 11/28/16 06:55 Bedside Glucose 185 mg/dl 107 mg/dl 84 mg/dl White Blood Count 7.59 K/uL Red Blood Count 4.15 M/uL Hemoglobin 13.3 g/dL Hematocrit 41.2 % Mean Corpuscular Volume 99.3 fL Mean Corpuscular Hemoglobin 32.0 pg Mean Corpuscular Hemoglobin Concent 32.3 g/dl RDW Standard Deviation 47.8 fL RDW Coefficient of Variation 13.2 % Platelet Count 184 K/uL Mean Platelet Volume 9.3 fL Activated Partial Thromboplast Time 26.6 SECONDS Partial Thromboplastin Ratio 1.0 Sodium Level 138 mmol/L Potassium Level 4.3 mmol/L Chloride Level 104 mmol/L Carbon Dioxide Level 31 mmol/L Anion Gap 3.0 mmol/L Blood Urea Nitrogen 23 mg/dl Creatinine 1.10 mg/dl Est Creatinine Clear Calc Drug Dose 41.1 ml/min Estimated GFR () 57.3 Estimated GFR (Non- 49.4 BUN/Creatinine Ratio 21.1 Random Glucose 111 mg/dl Calcium Level 8.7 mg/dl Magnesium Level 1.7 mg/dl Assessment & Plan 76 year old female with history of DM- diet controlled, HTN, HLD, Psoriasis, Depression, Osteoarthritis EKG CHANGES - INFERIOR LEAD Q WAVES - no cardiac symptoms New Q waves in inferior leads based on initial EKGs Troponin:0.062--> 0.08--> 0.03 - echo: * -- Conclusions -- * There is severe concentric left ventricular hypertrophy. * The basal septum is thickened and angulated consistent with sigmoid septum. * No regional wall motion abnormalities noted. * The LV Ejection Fraction = 60-65%. * The right ventricle is normal in size and function. * The left atrium is mildly dilated. * Aortic valve sclerosis moderate, without significant aortic valvular stenosis. * There is severe mitral annular calcification. * Grade I diastolic dysfunction, (abnormal relaxation pattern). -- Cardiology consulted -- troponin normalized EKG no signs of acute ischemia -- d/c heparin per discussion with Dr. Torres no further cardiac testing Aspirin not recommended at this point ACUTE RENAL FAILURE ON CKD 3 Likely secondary to dehydration, Bactrim, lisinopril Crea 1.1 as of Aug 2016 -- Crea improved from 2 to 1.0 -- given IV fluids -- resumed Lasix, Lisinopril -- monitor crea on follow up with PCP Hypertension Lasix and Lisinopril held Amlodipine and Nitropaste started with PRN Metoprolol -- crea back to baseline, so Lisinopril and Lasix resumed BP improving -- continue to monitor BP as outpatient and titrate medications accordingly Nausea and Vomiting, Resolved likely from constipation, Nitropaste - no distension, good Bowel sounds, (+) flatus - CT abdomen on admission: (+) moderate hiatal hernia (+) moderate stool - added Senokot S, Lactulose, - symptoms resolved after Nitropaste discontinued,and patient had BMs Hyperkalemia Likely secondary to RITA resolved Hypomagnesemia - Mg 1.4 on admission given PO and IV mg Mg 1.7 on discharge - continue MgOxide BID x 7 days recheck Mg on ff up with PCP UTI ruled out UA: small leukocyte esterase urine culture negative so far no UTI symptoms Left Lower Lobe Atelectasis CXR: There are surgical anchors within the right humeral head. There is mild left basilar opacity. Right lung is clear. Cardiac size is at the upper limits of normal. Pulmonary vascularity is normal. IMPRESSION: Mild left basilar opacity. Atelectasis is favored although consolidation could appear similar. Follow-up PA and lateral chest radiographs in one month are recommended. no signs and symptoms of pneumonia monitor as outpatient repeat CXR in 1 month Diaphoresis/Weight loss CT Abdomen: 1. No urinary calculi or hydronephrosis. 2. Cholelithiasis. No CT evidence of acute cholecystitis. 3. Moderate sized hiatal hernia. 4. Moderate amount of stool within the colon. Left colon diverticulosis without evidence for acute diverticulitis. CXR: Mild left basilar opacity, likely atelectasis -- Afebrile, No leukocytosis -- monitor as outpatient Generalized Weakness thyroid function test normal may be from Prednisone use, since August 2016 taper to 5mg daily, then consider stopping as outpatient DM II Diet controlled a1c 6.8 Hypothyroidism Continue levothyroxine Cholelithiasis follow as outpatient DVT Px: given IV heparin Code Status: DNI only: per discussion with patient Disposition: d/c home today with home health services ff up with PCP in 1 week Current Inpatient Medications: Current Inpatient Medications Medications (Trade) Dose Ordered Sig/Fab Route Start Time Stop Time Status Last Admin Dose Admin Acetaminophen (Tylenol Tab) 650 mg Q4H PRN PO 11/25/16 23:15 12/25/16 23:14 Ondansetron HCl (Zofran Inj) 4 mg Q6H PRN IV 11/25/16 23:15 12/25/16 23:14 11/27/16 20:01 4 MG Nitroglycerin (Nitrostat Tab) 0.4 mg UD PRN SL 11/25/16 23:15 12/25/16 23:14 Ascorbic Acid (Vitamin C Tab) 500 mg QAM PO 11/26/16 09:00 12/26/16 08:59 11/28/16 08:10 500 MG Baclofen (Lioresal Tab) 10 mg TID PRN PO 11/25/16 23:45 12/25/16 23:44 Dorzolamide/ Timolol (Cosopt Op Soln) 1 drops BID OP 11/26/16 09:00 12/26/16 08:59 11/28/16 08:17 1 DROPS Duloxetine HCl (Cymbalta Cap) 30 mg DAILY PO 11/26/16 09:00 12/26/16 08:59 11/28/16 08:15 30 MG Latanoprost (Xalatan Oph Soln) 1 drops HS OPB 11/26/16 21:00 12/26/16 20:59 11/27/16 19:57 1 DROPS Levothyroxine Sodium (Synthroid Tab) 75 mcg DAILYBB PO 11/26/16 06:00 12/26/16 05:59 11/28/16 06:15 75 MCG Loratadine (Claritin Tab) 10 mg HS PO 11/26/16 21:00 12/26/16 20:59 11/27/16 19:55 10 MG Simethicone (Mylicon Chew Tab) 80 mg QID PRN PO 11/25/16 23:45 12/25/16 23:44 Simvastatin (Zocor Tab) 20 mg HS PO 11/26/16 21:00 12/26/16 20:59 11/27/16 19:55 20 MG Venlafaxine HCl (effeXOR EXTENDED REL CAP) 37.5 mg QAM PO 11/26/16 09:00 12/26/16 08:59 11/28/16 08:14 37.5 MG Venlafaxine HCl (effeXOR EXTENDED REL CAP) 75 mg QAM PO 11/26/16 09:00 12/26/16 08:59 11/28/16 08:14 75 MG Ferrous Sulfate (Feosol Tab) 325 mg BID PO 11/26/16 09:00 12/26/16 08:59 11/28/16 08:09 325 MG Glucosamine Sulfate (Glucosamine Cap) 1,000 mg BID PO 11/26/16 09:00 12/26/16 08:59 11/28/16 08:13 1,000 MG Pantoprazole Sodium (Protonix Tab) 40 mg DAILY PO 11/26/16 09:00 12/26/16 08:59 11/28/16 08:10 40 MG Oxycodone HCl (Oxycontin Tab) 30 mg Q12H PO 11/26/16 09:00 12/10/16 08:59 11/28/16 08:09 30 MG Glucose (Glucose 40% Gel) 15-30 GRAMS 15 GRAMS... UD PRN PO 11/26/16 02:30 12/26/16 02:29 Glucose (Glucose Chew Tab) 4-8 Tablets 4 Tabl... UD PRN PO 11/26/16 02:30 12/26/16 02:29 Dextrose (Dextrose 50% 50ML Syringe) 25-50ML OF 50% DW IV FOR... UD PRN IV 11/26/16 02:30 12/26/16 02:29 Glucagon (Glucagon Inj) 1 mg UD PRN SQ 11/26/16 02:30 12/26/16 02:29 Prednisone (PredniSONE TAB) 5 mg DAILY PO 11/27/16 09:00 12/27/16 08:59 11/28/16 08:15 5 MG Metoprolol Tartrate (Lopressor Iv) 5 mg Q6 PRN IV 11/26/16 10:15 12/26/16 10:14 Magnesium Oxide 400 mg 400 mg BID PO 11/26/16 21:00 12/26/16 20:59 11/28/16 08:13 400 MG Promethazine HCl/ Sodium Chloride (Phenergan Inj/ Nss 50ml) 50.5 ml @ 204 mls/hr Q6H PRN IV 11/27/16 10:00 12/27/16 09:59 11/27/16 10:30 204 MLS/HR Senna/Docusate Sodium (Senokot S Tab) 1 tab QAM PO 11/28/16 09:00 12/28/16 08:59 11/28/16 08:15 1 TAB Lisinopril (Zestril Tab) 20 mg QAM PO 11/28/16 09:00 12/28/16 08:59 11/28/16 08:12 20 MG Bisacodyl (Dulcolax Supp) 10 mg DAILY PRN [place] 11/27/16 15:30 12/27/16 15:29 Lactulose (Chronulac Syrup) 30 gm TID PRN PO 11/27/16 17:45 12/27/16 17:44 11/27/16 18:35 30 GM Furosemide (Lasix Tab) 20 mg QAM PO 11/29/16 09:00 12/29/16 08:59
[2016-11-28] MEDS ORDERED: PRD5 PO (15:07)
[2016-11-28] MEDS ORDERED: MGNO400 PO (15:07)
[2016-11-28] MEDS ORDERED: SENN8.6T7 PO (15:07)
--- NOTE | 2016-11-28 15:17 | Discharge Instructions ---
Discharge Instructions Date of Service Nov 28, 2016. Admission Reason for Admission: Tiredness Discharge Discharge Diagnosis / Problem: EKG CHANGES, ACUTE CORONARY SYNDROME RULED OUT Discharge Goals Goal(s): Diagnostic testing, Therapeutic intervention Activity Recommendations Activity Limitations: as noted below (INCREASE ACTIVITY TOLERATED) . Instructions / Follow-Up Instructions / Follow-Up PLEASE REVIEW YOUR NEW MEDICATION LIST AND FOLLOW INSTRUCTIONS CAREFULLY. PREDNISONE HAS BEEN DECREASED FROM 10MG TO 5MG DAILY. PLEASE DO NOT STOP PREDNISONE UNLESS DIRECTED BY PRIMARY CARE PHYSICIAN. CALL PRIMARY CARE PHYSICIAN OR RETURN TO ER IMMEDIATELY IF WITH CHEST PAIN, SHORTNESS OF BREATH, DIZZINESS, WEAKNESS, INCREASING LEG SWELLING. FOLLOW UP WITH PRIMARY CARE PHYSICIAN ON THURSDAY DECEMBER 08, 2016 AT 11:05AM WITH DR. PETERSON. Current Hospital Diet Patient's current hospital diet: Diabetes Type 2 Diet, AHA Diet (Heart Healthy) Discharge Diet Recommended Diet: AHA Diet (Heart Healthy), Diabetes Type 2 Diet Pending Studies Studies pending at discharge: yes List of pending studies: REPEAT KIDNEY FUNCTION TEST AND MAGNESIUM LEVEL ON FOLLOW UP WITH PRIMARY CARE PHYSICIAN; REPEAT CHEST XRAY IN 1 MONTH Laboratory Results Hemoglobin A1c Test 11/26/16 05:20 Range/Units Estimated Average Glucose 148 mg/dl Hemoglobin A1c 6.8 H 4.5-5.6 % Lipid Panel Test 11/26/16 05:20 Range/Units Triglycerides Level 131 0-150 mg/dl Cholesterol Level 161 0-200 mg/dl HDL Cholesterol 55 mg/dl Cholesterol/HDL Ratio 2.9 LDL Cholesterol, Calculated 80 mg/dl Medical Emergencies . Who to Call and When: Medical Emergencies: If at any time you feel your situation is an emergency, please call 911 immediately. . Non-Emergent Contact Non-Emergency issues call your: Primary Care Provider Call Non-Emergent contact if: you have a fever, you have any medication questions . Past History Medical & Surgical History: (1) Acute renal failure syndrome (2) Anemia (3) Chronic kidney disease stage 3 (4) Diabetes mellitus type 2 (5) Diabetic neuropathy (6) Diverticular disease of colon (7) Generalized osteoarthritis (8) Glaucoma (9) Hypothyroidism (10) Peripheral venous insufficiency (11) Psoriasis (12) hip fracture (13) s/p EGD (14) s/p TKA left (15) s/p TKA right (16) s/p colonoscopy (17) s/p dobutamine stress echo (18) s/p rectocele repair (19) s/p repair right rotator cuff injury (20) Depression (21) Dyslipidemia (22) Essential hypertension (23) Tiredness (24) Hypomagnesemia (25) Acute kidney injury . "Provider Documentation" section prepared by Tee Rocha. . VTE Core Measure Inpt VTE Proph given/why not?: Unfractionated heparin SQ
[2016-11-28 15:24] VITALS: BP 168/76; PULSE 79; TEMP 36.9; O2SAT 97
--- NOTE | 2016-11-28 15:28 | Discharge Summary ---
Discharge Summary Date of Service Nov 28, 2016. Discharge Summary Admission Date: Nov 25, 2016 at 23:19 Discharge Date: Nov 28, 2016 Discharge Disposition: Home with services Principal Diagnosis: EKG CHANGES - INFERIOR LEAD Q WAVES; ACUTE CORONARY SYNDROME RULED OUT Secondary Diagnoses/Problems: PLEASE REFER TO HOSPITAL COURSE BELOW. Procedures: CHEST ONE VIEW PORTABLE CLINICAL HISTORY: Weakness. Nausea. COMPARISON STUDY: Chest radiograph August 04, 2012. FINDINGS: There are surgical anchors within the right humeral head. There is mild left basilar opacity. Right lung is clear. Cardiac size is at the upper limits of normal. Pulmonary vascularity is normal. IMPRESSION: Mild left basilar opacity. Atelectasis is favored although consolidation could appear similar. Follow-up PA and lateral chest radiographs in one month are recommended. CT OF THE ABDOMEN AND PELVIS WITHOUT CONTRAST, STONE PROTOCOL CLINICAL HISTORY: Dark urine, urinary symptoms. COMPARISON STUDY: None. TECHNIQUE: Helical axial images of the abdomen and pelvis were obtained without IV or oral contrast according to renal stone protocol. FINDINGS: Visualized portions of the lower chest demonstrate a moderate sized hiatal hernia. No renal, ureteral or bladder calculi are identified. There is no hydronephrosis or hydroureter. Evaluation the remainder of the abdomen and pelvis is suboptimal on this unenhanced exam. Unenhanced images of the liver, spleen, adrenal glands and pancreas are unremarkable. There are gallstones within the gallbladder. There is no pericholecystic infiltration. There is a moderate amount of stool within the colon. There is evidence for pelvic floor relaxation. There is left colon diverticulosis without evidence for acute diverticulitis. No lymphadenopathy is identified. No suspicious skeletal lesions are identified. There is no ascites or abscess. IMPRESSION: 1. No urinary calculi or hydronephrosis. 2. Cholelithiasis. No CT evidence of acute cholecystitis. 3. Moderate sized hiatal hernia. 4. Moderate amount of stool within the colon. Left colon diverticulosis without evidence for acute diverticulitis. Electronically signed by: Jonathan Garner M.D. 11/25/2016 9:21 PM Dictated Date/Time: 11/25/2016 9:14 PM ECHO: * -- Conclusions -- * There is severe concentric left ventricular hypertrophy. * The basal septum is thickened and angulated consistent with sigmoid septum. * No regional wall motion abnormalities noted. * The LV Ejection Fraction = 60-65%. * The right ventricle is normal in size and function. * The left atrium is mildly dilated. * Aortic valve sclerosis moderate, without significant aortic valvular stenosis. * There is severe mitral annular calcification. * Grade I diastolic dysfunction, (abnormal relaxation pattern). Consultations: Stylist Assistant Dr. Erwin/Dr. Torres Pending Studies/Follow-Up: Repeat PRP and Mg on follow up; monitor Blood Pressure; repeat CXR in 1 month to monitor left basilar opacity; Please refer to hospital course below for further details. Medication Reconciliation New Medications: Sennosides-Docusate Sodium (Senokot S) 1 Tab Tab 1 TAB PO DAILY PRN for Constipation, #10 TAB 0 Refills Magnesium Oxide (Magnesium-Oxide) 400 Mg Tab 400 MG PO BID for 7 Days, #14 TAB 0 Refills Prednisone (Prednisone) 5 Mg Tab 5 MG PO DAILY for 10 Days, #10 TAB 0 Refills Continued Medications: Acetaminophen (Acetaminophen) 325 Mg Tab 2 TAB PO QID PRN for Pain Ascorbic Acid (Vitamin C) 500 Mg Tab 1 TAB PO QAM Baclofen (Lioresal) 10 Mg Tab 10 MG PO TID PRN for Muscle Spasms Dorzolamide Hcl-Timolol Maleat (Cosopt Oph) 1 Chanelle Chanelle 1 DROPS OP BID, #10 ML 3 Refills Duloxetine HCl (Cymbalta) 30 Mg Cap 1 CAP PO DAILY for 30 Days, #30 CAP 2 Refills Ferrous Sulfate (Kp Ferrous Sulfate) 325 Mg Tab 1 TAB PO BID for 30 Days, #60 TAB 3 Refills Fluocinolone Acetonide (Fluocinolone Acetonide) Unknown Strength Cre 1 APPLN TOP gmg Fluticasone Propionate (Nasal) (Flonase Allergy Relief) 50 Mcg/Act Spr 1 SPRAY FELIPE QAM PRN for Nasal Congestion Furosemide (Lasix) 20 Mg Tab 20 MG PO QAM ONCE A DAY IN THE MORNING NEEDED FOR FLUID RETENTION. Glucosamine Sulfate (Glucosamine) 1,000 Mg Tab 1000 MG PO BID, TAB Latanoprost (Xalatan 0.005% Oph Chanelle) 0.005 % Chanelle 1 DROP OPB HS Levothyroxine Sodium (Synthroid) 75 Mcg Tab 75 MCG PO QAM Lidocaine Hcl (Mouth-Throat) (Lidocaine Hcl) 2 % Chanelle 2 TBS PO UD COAT MOOUTH ULCERS Lisinopril (Prinivil) 20 Mg Tab 20 MG PO QAM Loratadine (Claritin) 10 Mg Tab 10 MG PO HS Magic Swizzle (Magic Swizzle - SUCRALFA/ALUM/MAG/DIPHEN/LIDO) 240 Ml Susp 3-4 TSP PO Q4-6H PRN for MOUTH ULCERS 100ml Sucralfate 50ml Maalox 50ml Diphenhydramine 40ml 2% Aq. Lidocaine Swish and Swallow Multivitamins/Minerals (Mvi With Minerals) Tab 1 TAB PO DAILY, TAB Nystatin (Topical) (Nystatin) 1 Pow Pow 1 APPL TOP UD PRN for RASH Nystatin/Triamcinolone (Mycolog ||) Cr 1 APPL TOP UD PRN for CELLULITIS Omeprazole (Prilosec) 40 Mg Cap 40 MG PO DAILY, CAP Oxycodone HCl (Oxycodone HCl ER) 30 Mg Tab 30 MG PO Q12 Simethicone (Gas-X) 80 Mg Chw 80 MG PO QID PRN for GAS Simvastatin (Zocor) 20 Mg Tab 20 MG PO HS Venlafaxine Hcl (Venlafaxine Extended Rel) 75 Mg Cap 75 MG PO QAM Venlafaxine Hcl (Venlafaxine Extended Rel) 37.5 Mg Cap 37.5 MG PO QAM Vitamin E (E-400) 400 Unit Cap 1 TAB PO QAM Discontinued Medications: Prednisone Tab (Prednisone) 10 Mg Tab 10 MG PO DAILY, TAB Admission Information HPI (per Admitting provider): Patient is 76 yr old female with PMH of DM II (diet controlled), CKD III, Hypothyroidism, Depression, chronic venous stasis, arthritis presents for evaluation of diaphoresis, for abnormal EKG. Patient was at [facility] five days ago for dark urine with an odor and sweating spells. She was diagnosed to have UTI, hypomagnesemia and dehydration. She was treated with Bactrim and Magnesium. She completed 5 days of Bactrim and was told to complete a 7 day course. She was later told her urine culture was negative. She visited her PCP today who told her to get evaluated in ED for an abnormal EKG. She states not feeling herself since last few days and has nausea and diaphoresis and has been feeling tired lately. Also states being constipated for 2 days but had BM today. Denies any history of chest pain, SOB, palpitations, abd pain, cough, wheezing, LOC, headache, fevers, chills, visual changes, numbness. She also states having poor appetite and lost about 15 pounds since hospitalization at [place]. 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 * The basal septum is thickened and angulated consistent with sigmoid septum. * No regional wall motion abnormalities noted. * The LV Ejection Fraction = 60-65%. * The right ventricle is normal in size and function. * The left atrium is mildly dilated. * Aortic valve sclerosis moderate, without significant aortic valvular stenosis. * There is severe mitral annular calcification. * Grade I diastolic dysfunction, (abnormal relaxation pattern). -- Cardiology consulted- Dr. Erwin/Dr. Torres EKG changes resolved, likely lead placement related mild troponin elevation resolved, likely demand ischemia from elevated BP, LVH -- IV heparin discontinued no further cardiac testing recommended continue to maintain good BP control ACUTE RENAL FAILURE ON CKD 3 Likely secondary to dehydration, Bactrim, lisinopril --Crea 1.1 as of Aug 2016 -- given IV fluids -- Crea improved from 2 to 1.0 -- resumed Lasix, Lisinopril -- monitor crea on follow up with PCP Hypertension Lasix and Lisinopril held Amlodipine and Nitropaste started with PRN Metoprolol -- crea back to baseline, so Lisinopril and Lasix resumed BP improving -- continue to monitor BP as outpatient and titrate medications accordingly Nausea and Vomiting, Resolved likely from constipation, Nitropaste - no distension, good Bowel sounds, (+) flatus - CT abdomen on admission: (+) moderate hiatal hernia (+) moderate stool - added Senokot S, Lactulose - symptoms resolved after Nitropaste discontinued,and patient had BMs Hyperkalemia Likely secondary to RITA resolved Hypomagnesemia - Mg 1.4 on admission given PO and IV mg Mg 1.7 on discharge - continue MgOxide BID x 7 days recheck Mg on ff up with PCP UTI ruled out UA: small leukocyte esterase urine culture negative so far no UTI symptoms Left Lower Lobe Atelectasis CXR: There are surgical anchors within the right humeral head. There is mild left basilar opacity. Right lung is clear. Cardiac size is at the upper limits of normal. Pulmonary vascularity is normal. IMPRESSION: Mild left basilar opacity. Atelectasis is favored although consolidation could appear similar. Follow-up PA and lateral chest radiographs in one month are recommended. no signs and symptoms of pneumonia monitor as outpatient repeat CXR in 1 month Diaphoresis/Weight loss CT Abdomen: 1. No urinary calculi or hydronephrosis. 2. Cholelithiasis. No CT evidence of acute cholecystitis. 3. Moderate sized hiatal hernia. 4. Moderate amount of stool within the colon. Left colon diverticulosis without evidence for acute diverticulitis. CXR: Mild left basilar opacity, likely atelectasis -- Afebrile, No leukocytosis -- monitor as outpatient Generalized Weakness thyroid function test normal may be from Prednisone use, since August 2016 taper to 5mg daily, then consider stopping as outpatient DM II Diet controlled a1c 6.8 Hypothyroidism Continue levothyroxine Cholelithiasis follow as outpatient DVT Px: given IV heparin Code Status: DNI only: per discussion with patient Disposition: d/c home today with home health services ff up with PCP in 1 week Total time spent on discharge = 45 minutes This includes examination of the patient, discharge planning, medication reconciliation, and communication with other providers. Discharge Instructions Discharge Instructions Date of Service Nov 28, 2016. Admission Reason for Admission: Tiredness Discharge Discharge Diagnosis / Problem: EKG CHANGES, ACUTE CORONARY SYNDROME RULED OUT Discharge Goals Goal(s): Diagnostic testing, Therapeutic intervention Activity Recommendations Activity Limitations: as noted below (INCREASE ACTIVITY TOLERATED) . Instructions / Follow-Up Instructions / Follow-Up PLEASE REVIEW YOUR NEW MEDICATION LIST AND FOLLOW INSTRUCTIONS CAREFULLY. PREDNISONE HAS BEEN DECREASED FROM 10MG TO 5MG DAILY. PLEASE DO NOT STOP PREDNISONE UNLESS DIRECTED BY PRIMARY CARE PHYSICIAN. CALL PRIMARY CARE PHYSICIAN OR RETURN TO ER IMMEDIATELY IF WITH CHEST PAIN, SHORTNESS OF BREATH, DIZZINESS, WEAKNESS, INCREASING LEG SWELLING. FOLLOW UP WITH PRIMARY CARE PHYSICIAN ON THURSDAY DECEMBER 08, 2016 AT 11:05AM WITH DR. PETERSON. Current Hospital Diet Patient's current hospital diet: Diabetes Type 2 Diet, AHA Diet (Heart Healthy) Discharge Diet Recommended Diet: AHA Diet (Heart Healthy), Diabetes Type 2 Diet Pending Studies Studies pending at discharge: yes List of pending studies: REPEAT KIDNEY FUNCTION TEST AND MAGNESIUM LEVEL ON FOLLOW UP WITH PRIMARY CARE PHYSICIAN; REPEAT CHEST XRAY IN 1 MONTH Laboratory Results Hemoglobin A1c Test 11/26/16 05:20 Range/Units Estimated Average Glucose 148 mg/dl Hemoglobin A1c 6.8 H 4.5-5.6 % Lipid Panel Test 11/26/16 05:20 Range/Units Triglycerides Level 131 0-150 mg/dl Cholesterol Level 161 0-200 mg/dl HDL Cholesterol 55 mg/dl Cholesterol/HDL Ratio 2.9 LDL Cholesterol, Calculated 80 mg/dl Medical Emergencies . Who to Call and When: Medical Emergencies: If at any time you feel your situation is an emergency, please call 911 immediately. . Non-Emergent Contact Non-Emergency issues call your: Primary Care Provider Call Non-Emergent contact if: you have a fever, you have any medication questions . Past History Medical & Surgical History: (1) Acute renal failure syndrome (2) Anemia (3) Chronic kidney disease stage 3 (4) Diabetes mellitus type 2 (5) Diabetic neuropathy (6) Diverticular disease of colon (7) Generalized osteoarthritis (8) Glaucoma (9) Hypothyroidism (10) Peripheral venous insufficiency (11) Psoriasis (12) hip fracture (13) s/p EGD (14) s/p TKA left (15) s/p TKA right (16) s/p colonoscopy (17) s/p dobutamine stress echo (18) s/p rectocele repair (19) s/p repair right rotator cuff injury (20) Depression (21) Dyslipidemia (22) Essential hypertension (23) Tiredness (24) Hypomagnesemia (25) Acute kidney injury . "Provider Documentation" section prepared by Tee Rocha. . VTE Core Measure Inpt VTE Proph given/why not?: Unfractionated heparin SQ
[2016-11-29] MEDS ORDERED: FUROSEMIDE 20 MG TAB PO SCH (09:00)
[2016-12-06] MEDS ORDERED: SENN8.6T7 PO (21:11)
[2016-12-07] MEDS ORDERED: LCTL30 PO (14:14)
[2016-12-07] MEDS ORDERED: MRLP17X PO (14:16)
[2016-12-07] MEDS ORDERED: CIPR250T5 PO (17:11)
[2016-12-18] MEDS ORDERED: PRED-301 PO (14:58)
[2016-12-18] MEDS ORDERED: VENL150C56 PO (14:58)
[2016-12-18] MEDS ORDERED: MECL1TAB42 PO (14:58)
[2016-12-18] MEDS ORDERED: SENNTAB23 PO (14:58)
[2016-12-18] MEDS ORDERED: POLY335019 PO (14:58)
[2016-12-18] MEDS ORDERED: LCTL30 PO (14:58)
[2016-12-30] MEDS ORDERED: OMEP40CA41 PO (13:55)
[2016-12-30] MEDS ORDERED: ZNT150 PO (13:55)
[2016-12-30] MEDS ORDERED: DLC5 PO (13:55)
[2016-12-30] MEDS ORDERED: SNK PO (13:55)
[2016-12-30] MEDS ORDERED: LSN40 PO (13:55)
[2016-12-30] MEDS ORDERED: CLC100 PO (13:55)
[2017-01-15] MEDS ORDERED: RIBO100T2 PO (15:16)
[2017-01-15] MEDS ORDERED: LISI-461 PO (15:16)
[2017-01-15] MEDS ORDERED: PLV75 PO (15:16)
[2017-01-15] MEDS ORDERED: PRT40 PO (15:16)
[2017-01-15] MEDS ORDERED: ZNT150 PO ×2 (15:16→15:18)
[2017-01-15] MEDS ORDERED: MAGN400C3 PO (15:16)
[2017-01-15] MEDS ORDERED: FRRS300 PO (15:16)
[2017-01-15] MEDS ORDERED: ANT25 PO (15:16)
[2017-04-08] MEDS ORDERED: DIPH1TAB87 PO (14:25)
[2017-04-16] MEDS ORDERED: OXYC-787 PO (18:45)
[2017-04-16] MEDS ORDERED: AMOX1TAB43 PO (18:45)
== END 2016-11-28 16:15 | disposition home health service (06) | DRG 683 ==
LOC: ENRESERVTM → ENRESERVDT → C.EDB 19:23 → C.2T 23:19
PROVIDERS: ADMIT Internal Medicine; ATTEND Internal Medicine
DX: N17.9 Acute kidney failure, unspecified (principal); K80.00 Calculus of gallbladder with acute cholecystitis without obstruction; I13.0 Hypertensive heart and chronic kidney disease with heart failure and stage 1 through stage 4 chronic kidney disease, or unspecified chronic kidney disease; E86.0 Dehydration; E11.22 Type 2 diabetes mellitus with diabetic chronic kidney disease; E03.9 Hypothyroidism, unspecified; N18.3 Chronic kidney disease, stage 3 (moderate); F32.9 Major depressive disorder, single episode, unspecified; E11.51 Type 2 diabetes mellitus with diabetic peripheral angiopathy without gangrene; M19.90 Unspecified osteoarthritis, unspecified site; E83.42 Hypomagnesemia; L40.9 Psoriasis, unspecified; K44.9 Diaphragmatic hernia without obstruction or gangrene; Z96.653 Presence of artificial knee joint, bilateral; Z82.49 Family history of ischemic heart disease and other diseases of the circulatory system; Z83.3 Family history of diabetes mellitus; Z87.891 Personal history of nicotine dependence; Z88.8 Allergy status to other drugs, medicaments and biological substances; Z79.899 Other long term (current) drug therapy; Z79.52 Long term (current) use of systemic steroids; E87.5 Hyperkalemia; E78.5 Hyperlipidemia, unspecified; Z87.11 Personal history of peptic ulcer disease; K57.30 Diverticulosis of large intestine without perforation or abscess without bleeding; H40.9 Unspecified glaucoma; E11.40 Type 2 diabetes mellitus with diabetic neuropathy, unspecified

== ENCOUNTER 2016-12-05 13:24 | Observation (INO) | payer OTHER ==
[~2016-12-05] VITALS: Ht 149.9 cm; Wt 75.6 kg
[~2016-12-05 13:24] MED LIST changes: -ASPI81TA28 PO; -CSPOPS OPB; +CYM/30 PO; -DICL-201 PO; +DORZ1SOL6 OP; +FERR1TAB13 PO; +FLUO0.01 TOP; +GLUC10007 PO; +LIDO2SOL10 PO; +MGNO400 PO; +MULT-513 PO; -OMEP40CA PO; +OMEP40CA41 PO; +OXYC-787 PO; -OXYSRUNK PO; +PRD5 PO; +SENN8.6T7 PO; +SIME80CH PO
[2016-12-05] MEDS ORDERED: SODIUM CHLORIDE 0.9% 500ML 500 ML IV STA (14:10)
--- NOTE | 2016-12-05 14:13 | EMERGENCY ROOM VISIT NOTE ---
"History Report prepared by Sherry: Juan Canada Under the Supervision of: Dr. Mendoza Rios M.D. First contact with patient: 13:41 Chief Complaint: WEAKNESS Stated Complaint: WEAK, SWEATING Nursing Triage Summary: pt here with feeling weak since here last week. pt states has been vomiting off and on and having abd pains intermittently History of Present Illness The patient is a 76 year old female who presents to the Emergency Room with complaints of worsening weakness that started over the past few days. She was seen here last week and was acutely dehydrated. The patient notes that she is having the same symptoms again, but a little bit worse. Her dizziness is worse, she is weaker, and she is having worse abdominal discomfort. The patient states that she has been having intermittent abdominal pain as well as off and on vomiting. When she has to urinate, she feels more pressure in her abdomen. The patient states that she has had black stools if she does not have a bowel movement for a few days. Otherwise, she denies any persistent melena. Source of History: patient Onset: Past few days Position: other (global - weakness) Timing: worsening Associated Symptoms: + abdominal pain (as well as abdominal discomfort), + melena (when not having a bowel movement for a few days), + vomiting Note: Associated symptoms: Worsening dizziness. Review of Systems See HPI for pertinent positives & negatives. A total of 10 systems reviewed and were otherwise negative. Past Medical & Surgical Medical Problems: (1) Anemia of chronic disease (2) Chronic kidney disease stage 3 (3) Depression (4) Diabetes mellitus type 2 (5) Diabetic neuropathy (6) Diverticular disease of colon (7) Dizziness (8) Dyslipidemia (9) Essential hypertension (10) Generalized osteoarthritis (11) Glaucoma (12) Hypothyroidism (13) Peripheral venous insufficiency (14) Psoriasis (15) s/p colonoscopy (16) s/p dobutamine stress echo (17) s/p EGD (18) s/p rectocele repair (19) s/p repair right rotator cuff injury (20) s/p TKA left (21) s/p TKA right Surgical Problems: (1) H/O hernia repair Family History Family history omitted secondary to advanced age of patient. Social History Smoking Status: Former Smoker Drug Use: none Occupation Status: retired Current/Historical Medications Scheduled Ascorbic Acid (Vitamin C), 1 TAB PO QAM Dorzolamide Hcl-Timolol Maleat (Cosopt Oph), 1 DROPS OP BID Duloxetine HCl (Cymbalta), 1 CAP PO DAILY Ferrous Sulfate (Kp Ferrous Sulfate), 1 TAB PO BID Furosemide (Lasix), 20 MG PO QAM Glucosamine Sulfate (Glucosamine), 1,000 MG PO BID Latanoprost (Xalatan 0.005% Oph Chanelle), 1 DROP OPB HS Levothyroxine Sodium (Synthroid), 75 MCG PO QAM Lidocaine Hcl (Mouth-Throat) (Lidocaine Hcl), 2 TBS PO UD Lisinopril (Prinivil), 20 MG PO QAM Loratadine (Claritin), 10 MG PO HS Magnesium Oxide (Mg Supplement (Magnesium Oxide), 400 MG PO BID Multivitamins/Minerals (Mvi With Minerals), 1 TAB PO DAILY Omeprazole (Prilosec), 40 MG PO DAILY Oxycodone HCl (Oxycodone HCl ER), 30 MG PO Q12 Prednisone (Prednisone), 5 MG PO DAILY Simvastatin (Zocor), 20 MG PO HS Venlafaxine Hcl (Venlafaxine Extended Rel), 75 MG PO QAM Venlafaxine Hcl (Venlafaxine Extended Rel), 37.5 MG PO QAM Vitamin E (E-400), 1 TAB PO QAM Scheduled PRN Acetaminophen (Acetaminophen), 2 TAB PO QID PRN for Pain Baclofen (Lioresal), 10 MG PO TID PRN for Muscle Spasms Fluocinolone Acetonide (Fluocinolone Acetonide), 1 APPLN TOP BID PRN for rash Fluticasone Propionate (Nasal) (Flonase Allergy Relief), 1 SPRAY FELIPE QAM PRN for Nasal Congestion Magic Swizzle (Magic Swizzle - SUCRALFA/ALUM/MAG/DIPHEN/LIDO), 3-4 TSP PO Q4-6H PRN for MOUTH ULCERS Nystatin (Topical) (Nystatin), 1 APPL TOP UD PRN for RASH Nystatin/Triamcinolone (Mycolog ||), 1 APPL TOP UD PRN for rash Sennosides-Docusate Sodium (Senokot S), 1 TAB PO DAILY PRN for Constipation Simethicone (Gas-X), 80 MG PO QID PRN for GAS Allergies Coded Allergies: Gabapentin (Verified Allergy, Severe, MOUTH SWELLS, 12/05/16) Pregabalin (Verified Allergy, Severe, MOUTH SWELLS, 12/05/16) Physical Exam Vital Signs Date Time Temp Pulse Resp B/P Pulse Ox O2 Delivery O2 Flow Rate FiO2 12/05/16 17:00 101 22 175/88 98 Room Air 12/05/16 16:23 96 20 173/90 96 Room Air 12/05/16 15:23 97 20 145/105 97 Room Air 96 169/141 12/05/16 13:51 96 12/05/16 13:48 95 Room Air 12/05/16 13:27 36.6 104 16 148/74 96 Physical Exam GENERAL: Patient is a healthy-appearing well-nourished 76 year old female HEAD: Normocephalic atraumatic EYES: Ocular movements intact pupils equal and react to light OROPHARYNX mucous membranes are moist no exudates present no erythema or edema present NECK: Supple no nuchal rigidity CHEST: Good equal expansion LUNGS: Clear and equal to auscultation CARDIAC: Normal S1 and S2 ABDOMEN: Soft nontender no guarding BACK: No CVA tenderness EXTREMITIES: No pain upon palpation normal muscle strength in all groups no clubbing cyanosis or edema NEURO: Patient is following commands is answering questions appropriately. Alert and oriented x3 Cranial Nerves 2-12 grossly intact Medical Decision & Procedures ER Provider Diagnostic Interpretation: Radiology results as stated below per my review and radiologist interpretation: ABDOMEN 2VIEW W/PA CHEST RTN CLINICAL HISTORY: Pt c/o diffuse abd pain pain COMPARISON STUDY: 11/25/2016 FINDINGS: Mild increase in fecal load within the colon. Heterogeneous bone marrow mineral density. Considerable degenerative change of the lumbar spine with degenerative changes of the hips. IMPRESSION: Increase in fecal load throughout the colon consistent with a component of fecal stasis. Considerable degenerative change of all major osseous structures. Electronically signed by: Weston Vaz M.D. 12/05/2016 4:17 PM Dictated Date/Time: 12/05/2016 4:[address] SCAN OF THE BRAIN WITHOUT IV CONTRAST CLINICAL HISTORY: Generalized weakness. Change in mental status. COMPARISON STUDY: CT of the brain dated 09/14/14. TECHNIQUE: Unenhanced axial CT scan of the brain is performed from the vertex to the skull base. CT DOSE: 601.98 mGy.cm FINDINGS: Brain parenchyma: There are age-related involutional changes noting [id number] subcortical and periventricular microangiopathic change. Chronic lacunar infarcts are seen in the right caudate head, the left cerebellar hemisphere, and the left thalamus. There is no hemorrhage, mass effect, or evidence of acute territorial ischemia by CT criteria. [place]-white matter is preserved. No extra-axial fluid collection is seen. Ventricles, sulci, cisterns: Prominent secondary to involutional change. Cavum septum pellucidum is incidentally noted. Intracranial vasculature: There is atherosclerotic calcification of the cavernous carotid and vertebral arteries. Calvarium: Unremarkable. Sinuses and mastoids: The visualized paranasal sinuses are clear. The mastoid air cells are well pneumatized. Orbits: The bony orbits are grossly intact. There are bilateral ocular lens implants. IMPRESSION: 1. There is no hemorrhage, mass effect, or evidence of acute territorial ischemia by CT criteria. 2. Senescent changes and chronic lacunar infarct as above. Electronically signed by: Sumit Guerrero M.D. 12/05/2016 3:56 PM Dictated Date/Time: 12/05/2016 3:53 PM Laboratory Results Test 12/05/16 14:40 12/05/16 16:25 Immature Granulocyte % (Auto) 0.9 % White Blood Count 13.53 K/uL (4.8-10.8) Red Blood Count 4.57 M/uL (4.2-5.4) Hemoglobin 15.1 g/dL (12.0-16.0) Hematocrit 44.3 % (37-47) Mean Corpuscular Volume 96.9 fL (80-100) Mean Corpuscular Hemoglobin 33.0 pg (25-34) Mean Corpuscular Hemoglobin Concent 34.1 g/dl (32-36) Platelet Count 231 K/uL (130-400) Mean Platelet Volume 9.6 fL (7.4-10.4) Neutrophils (%) (Auto) 88.1 % Lymphocytes (%) (Auto) 6.9 % Monocytes (%) (Auto) 3.8 % Eosinophils (%) (Auto) 0.2 % Basophils (%) (Auto) 0.1 % Neutrophils # (Auto) 11.90 K/uL (1.4-6.5) Lymphocytes # (Auto) 0.94 K/uL (1.2-3.4) Monocytes # (Auto) 0.52 K/uL (0.11-0.59) Eosinophils # (Auto) 0.03 K/uL (0-0.5) Basophils # (Auto) 0.02 K/uL (0-0.2) Immature Granulocyte # (Auto) 0.12 K/uL (0.00-0.02) Prothrombin Time 10.6 SECONDS (9.0-12.0) Prothromb Time International Ratio 1.0 (0.9-1.1) Total Bilirubin 0.5 mg/dl (0.2-1) Direct Bilirubin 0.2 mg/dl (0-0.2) Aspartate Amino Transf (AST/SGOT) 18 U/L (15-37) Alanine Aminotransferase (ALT/SGPT) 25 U/L (12-78) Alkaline Phosphatase 62 U/L (45-117) Total Creatine Kinase 59 U/L (26-192) Creatine Kinase MB 2.5 ng/ml (0.5-3.6) Creatine Kinase MB Ratio 4.2 (0-3.0) Troponin I 0.022 ng/ml (0-0.045) Total Protein 7.2 gm/dl (6.4-8.2) Albumin 3.6 gm/dl (3.4-5.0) Thyroid Stimulating Hormone (TSH) 1.520 uIu/ml (0.300-4.500) Urine Color YELLOW Urine Appearance CLEAR (CLEAR) Urine pH 7.0 (4.5-7.5) Urine Specific [place] 1.009 (1.000-1.030) Urine Protein NEG (NEG) Urine Glucose (UA) NEG (NEG) Urine Ketones NEG (NEG) Urine Occult Blood NEG (NEG) Urine Nitrite NEG (NEG) Urine Bilirubin NEG (NEG) Urine Urobilinogen NEG (NEG) Urine Leukocyte Esterase MODERATE (NEG) Urine WBC (Auto) 10-30 /hpf (0-5) Urine RBC (Auto) 0-4 /hpf (0-4) Urine Hyaline Casts (Auto) 1-5 /lpf (0-5) Urine Epithelial Cells (Auto) 10-20 /lpf (0-5) Urine Bacteria (Auto) NEG (NEG) Labs reviewed by ED physician. Medications Administered Medications (Trade) Dose Ordered Sig/Fab Route Start Time Stop Time Status Last Admin Dose Admin Sodium Chloride (Nss 500ml) 500 ml @ 999 mls/hr Q31M STAT IV 12/05/16 14:10 12/05/16 14:40 DC 12/05/16 15:21 999 MLS/HR Ondansetron HCl (Zofran Inj) 4 mg NOW STAT IV 12/05/16 15:22 12/05/16 15:24 DC 12/05/16 15:30 4 MG Meclizine HCl (Antivert Tab) 25 mg NOW STAT PO 12/05/16 16:40 12/05/16 16:41 DC 12/05/16 17:12 25 MG Ceftriaxone Sodium (Rocephin Inj) 1 gm NOW STAT IV 12/05/16 16:52 12/05/16 16:53 DC 12/05/16 17:13 1 GM ECG Indication: weakness Rate (beats per minute): 61 Rhythm: normal sinus Findings: no acute ischemic change, no ectopy, other (old inferior infarct) ED Course 1404: Past medical records reviewed. The patient was evaluated in room C4. A complete history and physical examination was performed. 1410: Ordered NSS 500 ml @ 999 mls/hr IV. 1522: Ordered Zofran Inj 4 mg IV. 1636: I reevaluated the patient and she is resting comfortably. The patient verbally expressed understanding and agreement of the treatment plan. The patient will be evaluated for further treatment. 1640: Ordered Antivert Tab 25 mg PO. 1652: Ordered Rocephin Inj 1 gm IV. 1656: I discussed the patient with Regi Ornelas - she will evaluate the patient for further treatment. Medical Decision Prior records/ancillary studies reviewed and summarized above. Nursing notes reviewed. Differential diagnosis: Etiologies such as metabolic, infection, hypo/hyperglycemia, electrolyte abnormalities, cardiac sources, intracerebral event, toxicologic, neurologic, as well as others were entertained. This is a 76-year-old female who presents emergency department complaining of weakness that has been ongoing for the past week. Patient is also complaining of abdominal pain. She is a benign abdominal examination however appears to be constipated on x-rays. I did discuss the case with the hospitalist service who agreed to admit the patient. Patient family were in agreement with the treatment plan. Consults Time Called: 1644 Consulting Physician: Regi Ornelas Returned Call: [phone] I discussed the patient with Regi Ornelas - she will evaluate the patient for further treatment. Impression Primary Impression: Weakness Additional Impression: Constipation Scribe Attestation The scribe's documentation has been prepared under my direction and personally reviewed by me in its entirety. I confirm that the note above accurately reflects all work, treatment, procedures, and medical decision making performed by me. Departure Information Dispostion Being Evaluated By Hospitalist Referrals No Doctor, Assigned (PCP) Patient Instructions My [facility] Problem Qualifiers Additional Impression: Constipation Constipation type: unspecified constipation type Qualified Codes: K59.00 - Constipation, unspecified"
[2016-12-05 14:52] LABS: BASO % 0.1 %; BASO ABS # 0.02 K/uL (0-0.2); COMPLETE YES; EOS % 0.2 %; HEMATOCRIT 44.3 % (37-47); IG% 0.9 %; LYMPH % 6.9 %; LYMPH ABS # 0.94 K/uL (1.2-3.4); MEAN CELL VOLUME 96.9 fL (80-100); MEAN CORPUSCULAR HGB CONC 34.1 g/dl (32-36); MEAN PLATELET VOLUME 9.6 fL (7.4-10.4); MONO % 3.8 %; NEUT % 88.1 %; PLATELET COUNT 231 K/uL (130-400); RED BLOOD COUNT 4.57 M/uL (4.2-5.4); WHITE BLOOD COUNT 13.53 K/uL (4.8-10.8)
[2016-12-05 14:59] LABS: PROTHROMBIN TIME (PATIENT) 10.6 SECONDS (9.0-12.0)
[2016-12-05 15:12] LABS: BUN/CREATININE RATIO 29.3 (10-20); CREATININE 1.2 mg/dl (0.60-1.20); POTASSIUM 4.5 mmol/L (3.5-5.1)
[2016-12-05 15:22] LABS: CKMB/CK RATIO 4.2 (0-3.0); THYROID STIMULATING HORMONE 1.52 uIu/ml (0.300-4.500)
[2016-12-05] MEDS ORDERED: ONDANSETRON INJ 2 MG/ML 2 ML VIAL IV STA (15:22)
--- NOTE | 2016-12-05 15:58 | DIAGNOSTIC IMAGING REPORT ---
CT SCAN OF THE BRAIN WITHOUT IV CONTRAST CLINICAL HISTORY: Generalized weakness. Change in mental status. COMPARISON STUDY: CT of the brain dated 09/14/14. TECHNIQUE: Unenhanced axial CT scan of the brain is performed from the vertex to the skull base. CT DOSE: 601.98 mGy.cm FINDINGS: Brain parenchyma: There are age-related involutional changes noting budh-pi-wiyytidn subcortical and periventricular microangiopathic change. Chronic lacunar infarcts are seen in the right caudate head, the left cerebellar hemisphere, and the left thalamus. There is no hemorrhage, mass effect, or evidence of acute territorial ischemia by CT criteria. [place]-white matter is preserved. No extra-axial fluid collection is seen. Ventricles, sulci, cisterns: Prominent secondary to involutional change. Cavum septum pellucidum is incidentally noted. Intracranial vasculature: There is atherosclerotic calcification of the cavernous carotid and vertebral arteries. Calvarium: Unremarkable. Sinuses and mastoids: The visualized paranasal sinuses are clear. The mastoid air cells are well pneumatized. Orbits: The bony orbits are grossly intact. There are bilateral ocular lens implants. IMPRESSION: 1. There is no hemorrhage, mass effect, or evidence of acute territorial ischemia by CT criteria. 2. Senescent changes and chronic lacunar infarct as above. Electronically signed by: Sumit Guerrero M.D. 12/05/2016 3:56 PM Dictated Date/Time: 12/05/2016 3:53 PM
--- NOTE | 2016-12-05 16:18 | DIAGNOSTIC IMAGING REPORT ---
ABDOMEN 2VIEW W/PA CHEST RTN CLINICAL HISTORY: Pt c/o diffuse abd pain pain COMPARISON STUDY: 11/25/2016 FINDINGS: Mild increase in fecal load within the colon. Heterogeneous bone marrow mineral density. Considerable degenerative change of the lumbar spine with degenerative changes of the hips. IMPRESSION: Increase in fecal load throughout the colon consistent with a component of fecal stasis. Considerable degenerative change of all major osseous structures. Electronically signed by: Weston Vaz M.D. 12/05/2016 4:17 PM Dictated Date/Time: 12/05/2016 4:16 PM
[2016-12-05] MEDS ORDERED: MECLIZINE HCL 25 MG TAB PO STA (16:40)
[2016-12-05 16:49] LABS: URINE APPEARANCE CLEAR (CLEAR); URINE BILIRUBIN NEG (NEG); URINE COLOR YELLOW; URINE NITRITE NEG (NEG); URINE SPECIFIC GRAVITY 1.009 (1.000-1.030); UROBILINOGEN NEG (NEG)
[2016-12-05 16:51] LABS: MANUAL MICROSCOPIC REQUIRED? NO; REVIEW REQ? NO
[2016-12-05] MEDS ORDERED: CEFTRIAXONE SOD INJ 1 GM ADDVIAL IV STA (16:52)
[2016-12-05] MEDS ORDERED: ACETAMINOPHEN 325 MG TAB PO PRN (18:15)
[2016-12-05] MEDS ORDERED: MECLIZINE HCL 25 MG TAB PO PRN (18:15)
[2016-12-05] MEDS ORDERED: LORAZEPAM 0.5 MG TAB PO PRN ×2 (18:15)
[2016-12-05] MEDS ORDERED: MAGN1TAB19 PO (18:22)
[2016-12-05] MEDS ORDERED: LIDOCAINE HCL 2% VISC SOLN 20 ML UDC PO PRN (18:30)
[2016-12-05] MEDS ORDERED: BACLOFEN 10 MG TAB PO PRN (18:30)
[2016-12-05] MEDS ORDERED: IV FLUIDS COMPLETED PRN (18:30)
[2016-12-05] MEDS ORDERED: SIMETHICONE 80 MG CHEW PO PRN (18:30)
[2016-12-05] MEDS ORDERED: FLUTICASONE PROPIONATE NA SPR 16 GM BTL NAE PRN (18:30)
[2016-12-05] MEDS ORDERED: DOCUSATE SODIUM/SENNA 50/8.6MG TAB PO PRN (18:45)
[2016-12-05] MEDS ORDERED: LORAZEPAM 0.5 MG TAB PO STA (18:48)
[2016-12-05] MEDS ORDERED: LIDOCAINE HCL 2% VISCOUS SOLN 60 ML, DiphenhydrAMINE HCL SYRUP 150 MG, ALUMINUM/MAGNESI... MT PRN ×4 (19:00)
--- NOTE | 2016-12-05 20:33 | DIAGNOSTIC IMAGING REPORT ---
ULTRASOUND OF THE CAROTID ARTERIES CLINICAL HISTORY: Suspected stroke. Weakness. COMPARISON STUDY: None. TECHNIQUE: Real-time, grayscale, and color Doppler sonography of the carotid arteries was performed. Imaging reviewed in the transverse and longitudinal planes. NASCET criteria was utilized for stenosis calcification. FINDINGS: There is mild atherosclerotic plaque present . The peak systolic velocity within the right internal carotid artery is 66 cm/sec. The systolic velocity ratio of right internal to common carotid artery is 1.6. The peak systolic velocity within the left internal carotid artery is 100 cm/sec. The systolic velocity ratio left internal to common carotid artery is 1.6. Antegrade flow is seen in the vertebral arteries. There are elevated velocities in the left external carotid artery suggesting a left ECA stenosis.. IMPRESSION: No evidence of hemodynamically significant internal carotid artery stenosis. Electronically signed by: Mikal Jasso M.D. 12/05/2016 8:31 PM Dictated Date/Time: 12/05/2016 8:30 PM
[2016-12-05 20:45] VITALS: BP 182/76; PULSE 20; TEMP 36.8; O2SAT 94; Ht 149.9 cm; Wt 75.6 kg
[2016-12-05] MEDS ORDERED: BISACODYL 5 MG TABEC PO PRN (20:45)
--- NOTE | 2016-12-05 20:58 | DIAGNOSTIC IMAGING REPORT ---
MRI OF THE BRAIN WITHOUT CONTRAST CLINICAL HISTORY: Change in mental status, generalized weakness. Suspected stroke. COMPARISON STUDY: Head CT dated 12/05/2016 FINDINGS: Sagittal T1, axial diffusion, proton density and T2 weighted axial, coronal FLAIR, and axial T1-weighted images were acquired. No intra or extra-axial mass lesions are visualized Axial diffusion-weighted images reveal no evidence of acute or subacute infarction. There is no evidence of ventricular dilatation. There is an incidental cavum septa pellucida and cavum vergae. Proton density T2-weighted and FLAIR images reveal scattered foci of increased T2 signal within the white matter, likely on a small vessel basis. There is an old lacunar infarct in the left cerebellar hemisphere. There are dilated perivascular spaces versus old infarction in the region of the right basal ganglia. There are no abnormal flow voids. The examination is limited secondary to motion artifact IMPRESSION: 1. No evidence of intracranial mass on this noncontrast study 2. No evidence of acute or subacute infarction 3. Scattered foci of increased T2 signal within the white matter likely a small vessel basis Electronically signed by: Mikal Jasso M.D. 12/05/2016 8:57 PM Dictated Date/Time: 12/05/2016 8:55 PM
--- NOTE | 2016-12-05 21:14 | History and Physical ---
History & Physical Date & Time of Service: December 05, 2016 at 18:30 Chief Complaint: Weak, Sweating Primary Care Physician: Markell Kline M.D. History of Present Illness Source: patient, family (daughter at bedside), clinic records, hospital records This is a 76 year old female with PMH of HTN, DM 2, HL, CKD stage III, hypothyroidism, depression, and other problems listed below who presents to the ED for dizziness. Patient was recently admitted to [facility] from November 25- for EKG changes, ACS ruled out, ARF on CKD stage III, dehydration. She had echo and cardiology evaluation last admission. Pt states she was feeling better for 1st few days after discharge then had recurrence of prior symptoms on last admission , however states symptoms are worse this time. She reports dizziness, generalized weakness, difficulty ambulating, episodic diaphoresis, malaise. She was given meclizine in ER and is not feeling dizzy currently. She describes dizziness as "room spinning" sensation which occurs when she is lying flat, turns her head, and sometimes when she stands up. She uses a wheeled walker at home. Had trouble walking to restroom in ER. She reports poor food intake but trying to drink fluids. Pt has had nausea with 1 episode vomiting. Nausea resolved with Zofran in ER. She reports generalized abdominal discomfort and constipation. Had small hard bowel movements sporadically this week- last BM earlier today. Had dysuria this morning. Chronic productive cough is at baseline. She denies fever, chills, vision change, speech or swallowing difficultly, focal weakness or numbness, URI symptoms, chest pain, SOB, calf pain, edema. Pt reports no known hx of TIA or CVA. Past Medical/Surgical History Medical Problems: (1) Anemia of chronic disease Status: Chronic (2) Chronic kidney disease stage 3 Status: Chronic (3) Depression Status: Chronic (4) Diabetes mellitus type 2 Status: Chronic (5) Diabetic neuropathy Status: Chronic (6) Diverticular disease of colon Status: Chronic (7) Dyslipidemia Status: Chronic (8) Essential hypertension Status: Chronic (9) Generalized osteoarthritis Status: Chronic (10) Glaucoma Status: Chronic (11) Hypothyroidism Status: Chronic (12) Peripheral venous insufficiency Status: Chronic (13) Psoriasis Status: Chronic (14) s/p colonoscopy Permanent Comment: diverticulosis Status: Resolved (15) s/p dobutamine stress echo Permanent Comment: [facility] 12/18/05 normal LV wall motion and sys function at rest diastolic dysfunction aortic sclerosis without stenosis no stress-induced ischemia Status: Resolved (16) s/p EGD Permanent Comment: small hiatal hernia Status: Resolved (17) s/p rectocele repair Status: Resolved (18) s/p repair right rotator cuff injury Status: Resolved (19) s/p TKA left Status: Resolved (20) s/p TKA right Status: Resolved Surgical Problems: (1) H/O hernia repair Status: Chronic Family History Diabetes mellitus FATHER SISTER FH: CAD (coronary artery disease) MOTHER Stroke BROTHER Social History Smoking Status: Former Smoker Alcohol Use: none Marital Status: Housing status: lives with significant other Occupational Status: retired Immunizations History of Influenza Vaccine: N/A History of Tetanus Vaccine?: UTD History of Pneumococcal: Yes Pneumococcal Date: December 09, 2008 History of Hepatitis B Vaccine: Yes Hepatitis Immunization Date: December 09, 1996 Multi-Drug Resistant Organisms History of MDRO: No Allergies Coded Allergies: Gabapentin (Verified Allergy, Severe, MOUTH SWELLS, 12/05/16) Pregabalin (Verified Allergy, Severe, MOUTH SWELLS, 12/05/16) Home Medications Scheduled Ascorbic Acid (Vitamin C), 1 TAB PO QAM Dorzolamide Hcl-Timolol Maleat (Cosopt Oph), 1 DROPS OP BID Duloxetine HCl (Cymbalta), 1 CAP PO DAILY Ferrous Sulfate (Kp Ferrous Sulfate), 1 TAB PO BID Furosemide (Lasix), 20 MG PO QAM Glucosamine Sulfate (Glucosamine), 1,000 MG PO BID Latanoprost (Xalatan 0.005% Oph Chanelle), 1 DROP OPB HS Levothyroxine Sodium (Synthroid), 75 MCG PO QAM Lidocaine Hcl (Mouth-Throat) (Lidocaine Hcl), 2 TBS PO UD Lisinopril (Prinivil), 20 MG PO QAM Loratadine (Claritin), 10 MG PO HS Magnesium Oxide (Mg Supplement (Magnesium Oxide), 400 MG PO BID Multivitamins/Minerals (Mvi With Minerals), 1 TAB PO DAILY Omeprazole (Prilosec), 40 MG PO DAILY Oxycodone HCl (Oxycodone HCl ER), 30 MG PO Q12 Prednisone (Prednisone), 5 MG PO DAILY Simvastatin (Zocor), 20 MG PO HS Venlafaxine Hcl (Venlafaxine Extended Rel), 75 MG PO QAM Venlafaxine Hcl (Venlafaxine Extended Rel), 37.5 MG PO QAM Vitamin E (E-400), 1 TAB PO QAM Scheduled PRN Acetaminophen (Acetaminophen), 2 TAB PO QID PRN for Pain Baclofen (Lioresal), 10 MG PO TID PRN for Muscle Spasms Fluocinolone Acetonide (Fluocinolone Acetonide), 1 APPLN TOP BID PRN for rash Fluticasone Propionate (Nasal) (Flonase Allergy Relief), 1 SPRAY FELIPE QAM PRN for Nasal Congestion Magic Swizzle (Magic Swizzle - SUCRALFA/ALUM/MAG/DIPHEN/LIDO), 3-4 TSP PO Q4-6H PRN for MOUTH ULCERS Nystatin (Topical) (Nystatin), 1 APPL TOP UD PRN for RASH Nystatin/Triamcinolone (Mycolog ||), 1 APPL TOP UD PRN for rash Sennosides-Docusate Sodium (Senokot S), 1 TAB PO DAILY PRN for Constipation Simethicone (Gas-X), 80 MG PO QID PRN for GAS Review of Systems Ten systems reviewed and negative except as listed in HPI. Physical Exam Vital Signs Date Time Temp Pulse Resp B/P Pulse Ox O2 Delivery O2 Flow Rate FiO2 12/05/16 16:23 96 20 173/90 96 Room Air 12/05/16 15:23 97 20 145/105 97 Room Air 96 169/141 12/05/16 13:51 96 12/05/16 13:48 95 Room Air 12/05/16 13:27 36.6 104 16 148/74 96 General Appearance: + obese, + pertinent finding (alert anxious 76 year old female, sitting up in bed, daughter at bedside) Head: normocephalic, atraumatic Eyes: normal inspection, PERRL, EOMI ENT: hearing grossly normal, pharynx normal Neck: supple, no carotid bruits, trachea midline Respiratory/Chest: lungs clear, normal breath sounds, no respiratory distress, no accessory muscle use Cardiovascular: no murmur, + tachycardia (regular rhythm, rate 100) Abdomen/GI: normal bowel sounds, soft, + pertinent finding (obese abdomen. minimal RLQ tenderness. no guarding. 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 show host strength 5/5 bilateral upper extremities. chronic bilateral upper arm weakness and decreased ROM due rotator cuff disease. strength 5/5 bilateral LE. ) Skin: normal color, warm/dry, + pertinent finding (healing abrasion right lower leg) Diagnostics Laboratory Results Results Past 24 Hours Test 12/05/16 14:40 12/05/16 15:27 12/05/16 16:25 12/05/16 17:04 Range/Units White Blood Count 13.53 4.8-10.8 K/uL Red Blood Count 4.57 4.2-5.4 M/uL Hemoglobin 15.1 12.0-16.0 g/dL Hematocrit 44.3 37-47 % Mean Corpuscular Volume 96.9 80-100 fL Mean Corpuscular Hemoglobin 33.0 25-34 pg Mean Corpuscular Hemoglobin Concent 34.1 32-36 g/dl Platelet Count 231 130-400 K/uL Mean Platelet Volume 9.6 7.4-10.4 fL Neutrophils (%) (Auto) 88.1 % Lymphocytes (%) (Auto) 6.9 % Monocytes (%) (Auto) 3.8 % Eosinophils (%) (Auto) 0.2 % Basophils (%) (Auto) 0.1 % Neutrophils # (Auto) 11.90 1.4-6.5 K/uL Lymphocytes # (Auto) 0.94 1.2-3.4 K/uL Monocytes # (Auto) 0.52 0.11-0.59 K/uL Eosinophils # (Auto) 0.03 0-0.5 K/uL Basophils # (Auto) 0.02 0-0.2 K/uL RDW Standard Deviation 47.0 36.4-46.3 fL RDW Coefficient of Variation 13.4 11.5-14.5 % Immature Granulocyte % (Auto) 0.9 % Immature Granulocyte # (Auto) 0.12 0.00-0.02 K/uL Prothrombin Time 10.6 9.0-12.0 SECONDS Prothromb Time International Ratio 1.0 0.9-1.1 Sodium Level 133 136-145 mmol/L Potassium Level 4.5 3.5-5.1 mmol/L Chloride Level 94 98-107 mmol/L Carbon Dioxide Level 31 21-32 mmol/L Anion Gap 8.0 3-11 mmol/L Blood Urea Nitrogen 35 7-18 mg/dl Creatinine 1.20 0.60-1.20 mg/dl Est Creatinine Clear Calc Drug Dose 35.0 ml/min Estimated GFR () 51.6 Estimated GFR (Non- 44.5 BUN/Creatinine Ratio 29.3 10-20 Random Glucose 178 70-99 mg/dl Calcium Level 9.0 8.5-10.1 mg/dl Magnesium Level 1.6 1.8-2.4 mg/dl Total Bilirubin 0.5 0.2-1 mg/dl Direct Bilirubin 0.2 0-0.2 mg/dl Aspartate Amino Transf (AST/SGOT) 18 15-37 U/L Alanine Aminotransferase (ALT/SGPT) 25 12-78 U/L Alkaline Phosphatase 62 45-117 U/L Total Creatine Kinase 59 26-192 U/L Creatine Kinase MB 2.5 0.5-3.6 ng/ml Creatine Kinase MB Ratio 4.2 0-3.0 Troponin I 0.022 0-0.045 ng/ml Total Protein 7.2 6.4-8.2 gm/dl Albumin 3.6 3.4-5.0 gm/dl Thyroid Stimulating Hormone (TSH) 1.520 0.300-4.500 uIu/ml Bedside Glucose 153 70-90 mg/dl Urine Color YELLOW Urine Appearance CLEAR CLEAR Urine pH 7.0 4.5-7.5 Urine Specific [place] 1.009 1.000-1.030 Urine Protein NEG NEG Urine Glucose (UA) NEG NEG Urine Ketones NEG NEG Urine Occult Blood NEG NEG Urine Nitrite NEG NEG Urine Bilirubin NEG NEG Urine Urobilinogen NEG NEG Urine Leukocyte Esterase MODERATE NEG Urine WBC (Auto) 10-30 0-5 /hpf Urine RBC (Auto) 0-4 0-4 /hpf Urine Hyaline Casts (Auto) 1-5 0-5 /lpf Urine Epithelial Cells (Auto) 10-20 0-5 /lpf Urine Bacteria (Auto) NEG NEG Microbiology Results 12/05/16 Blood Culture, Rah Batch Pending 12/05/16 Blood Culture, Rah Batch Pending Diagnostic Radiology ABDOMEN 2VIEW W/PA CHEST RTN CLINICAL HISTORY: Pt c/o diffuse abd pain pain COMPARISON STUDY: 11/25/2016 FINDINGS: Mild increase in fecal load within the colon. Heterogeneous bone marrow mineral density. Considerable degenerative change of the lumbar spine with degenerative changes of the hips. IMPRESSION: Increase in fecal load throughout the colon consistent with a component of fecal stasis. Considerable degenerative change of all major osseous structures. CT SCAN OF THE BRAIN WITHOUT IV CONTRAST CLINICAL HISTORY: Generalized weakness. Change in mental status. COMPARISON STUDY: CT of the brain dated 09/14/14. TECHNIQUE: Unenhanced axial CT scan of the brain is performed from the vertex to the skull base. CT DOSE: 601.98 mGy.cm FINDINGS: Brain parenchyma: There are age-related involutional changes noting [id number] subcortical and periventricular microangiopathic change. Chronic lacunar infarcts are seen in the right caudate head, the left cerebellar hemisphere, and the left thalamus. There is no hemorrhage, mass effect, or evidence of acute territorial ischemia by CT criteria. [place]-white matter is preserved. No extra-axial fluid collection is seen. Ventricles, sulci, cisterns: Prominent secondary to involutional change. Cavum septum pellucidum is incidentally noted. Intracranial vasculature: There is atherosclerotic calcification of the cavernous carotid and vertebral arteries. Calvarium: Unremarkable. Sinuses and mastoids: The visualized paranasal sinuses are clear. The mastoid air cells are well pneumatized. Orbits: The bony orbits are grossly intact. There are bilateral ocular lens implants. IMPRESSION: 1. There is no hemorrhage, mass effect, or evidence of acute territorial ischemia by CT criteria. 2. Senescent changes and chronic lacunar infarct as above. EKG poor data quality, NSR with PACs, LAD, LVH, possible age indeterminate lateral infarct, when compared to prior EKG November 27 2016, borderline criteria for lateral infarct are now present, PACs now present, as confirmed by cardiology read Impression Assessment and Plan DIZZINESS Likely due to BPPV from the history CT head shows multiple old lacunar strokes Check MRI brain and carotid doppler PRN meclizine Discussed PT consult with patient but she declines for now URINARY TRACT INFECTION Reports of dysuria UA shows moderate leukocyte esterase, 10-30 WBC Afebrile; + tachycardia (likely from severe anxiety), + leukocytosis (13.5k); BP on higher side; lactic acid WNL Check blood cultures, urine culture HYPOMAGNESEMIA Recently started on mag supplement on last admission Mag is 1.6 today Give mag sulfate 2 gm IV then continue PO supplement Recheck in am ANXIETY PRN lorazepam CKD STAGE III Creat is stable at 1.2, baseline ~1.0-1.1 Hold Lasix and give gentle IVF's as patient is mildly dry Monitor renal function HYPERTENSION BP on higher side likely due to anxiety- starting PRN Ativan Hold Lasix as patient is mildly dry Continue lisinopril CONSTIPATION Abdominal x-ray shows increased fecal load/ fecal stasis Continue Senokot PRN and add Dulcolax PRN DM TYPE 2 Diet controlled Recent A1c 6.8 HYPOTHYROIDISM Continue levothyroxine CHRONIC BACK AND BLLE PAIN Continue prednisone 5 mg daily DIABETIC NEUROPATHY Continue Cymbalta DEPRESSION Continue Effexor DVT PROPHYLAXIS Lovenox SQ CODE STATUS DNR per preference on recent admission DISPOSITION Observation to telemetry Lives with ; has home health payroll services analyst consult for d/c planning Follows with Dr. Kline for primary care Patient seen in collaboration with Dr. Mayorga. Please see his addendum. ADDENDUM: This is a 76 year old extremely anxious female with a PMH of DM2, HTN, hypothyroidism, CKD stage 3 -- significant anxiety during exam; she is worried about physical therapy, worried about taking more medications; overall, very anxious, states her symptoms include dizziness with moving her head; generalized weakness - was recently admitted at [facility] to r/o ACS - cardiology suggested low likelihood of ACS - she was also dehydrated and she was given fluids and then sent home. During exam, besides anxiety; other findings include decreased bowel sounds. BPPV patient had Head CT and MRI = negative most likely positional vertigo will need PT for Rosalba - patient very anxious about this meclizine PRN - patient anxious about taking this gentle hydration UTI give Rocephin - patient agreeable to this urine culture pending VTE Prophylaxis VTE Risk Assessment Done? Y/N: Yes Risk Level: Moderate
[2016-12-05] MEDS: DORZOLAMIDE/TIMOLOL 22.3/6.8MG/ML 10 ML BTL OP SCH (21:24)
[2016-12-05] MEDS: MAGNESIUM OXIDE 400 MG TAB PO SCH (21:25)
[2016-12-05] MEDS: LORATADINE 10 MG TAB PO SCH (21:25)
[2016-12-05] MEDS: SIMVASTATIN 20 MG TAB PO SCH (21:26)
[2016-12-05] MEDS: GLUCOSAMINE SULFATE 500 MG CAP PO SCH (21:27)
[2016-12-05] MEDS: ENOXAPARIN 40 MG/0.4 ML SYR SC SCH (21:30)
[2016-12-05] MEDS: SODIUM CHLORIDE 0.9% 1000ML 1,000 ML IV SCH (21:33)
[2016-12-05] MEDS: MAGNESIUM SULFATE 1GM / D5W 1 GM in PREMIXED IN D5W 100 ML IV SCH ×2 (21:34→22:34)
[2016-12-05] MEDS: OXYCODONE HCL 15 MG TABCR (OXYCONTIN) PO SCH (21:39)
[2016-12-05] MEDS: LATANOPROST 0.005% OP SOLN 2.5 ML BTL OPB SCH (21:39)
[2016-12-05 22:21] VITALS: BP 138/84; PULSE 88
[2016-12-05 23:42] VITALS: BP 148/77; PULSE 76; TEMP 36.7; O2SAT 91
[2016-12-05 23:45] VITALS: BP 149/99; PULSE 86
[2016-12-05 23:48] VITALS: BP 129/73; PULSE 94
[2016-12-06] VITALS (9 sets, daily range): BP systolic 127–190; BP diastolic 83–100; PULSE 61–93; TEMP 36.5–36.9; O2SAT 91–98
[2016-12-06] MEDS: LEVOTHYROXINE 75 MCG TAB PO SCH (06:08)
[2016-12-06 07:09] LABS: HEMATOCRIT 41.2 % (37-47); MEAN CELL VOLUME 98.3 fL (80-100); MEAN CORPUSCULAR HEMOGLOBIN 32.5 pg (25-34); MEAN PLATELET VOLUME 9.2 fL (7.4-10.4); PLATELET COUNT 206 K/uL (130-400); RED BLOOD COUNT 4.19 M/uL (4.2-5.4); WHITE BLOOD COUNT 8.59 K/uL (4.8-10.8)
[2016-12-06 07:37] LABS: BUN/CREATININE RATIO 29.9 (10-20); CALCIUM 8.5 mg/dl (8.5-10.1); CREATININE 0.97 mg/dl (0.60-1.20); MAGNESIUM 2.3 mg/dl (1.8-2.4); POTASSIUM 4.7 mmol/L (3.5-5.1)
[2016-12-06] MEDS: VENLAFAXINE HCL XR 75 MG CAPXR PO SCH (09:02)
[2016-12-06] MEDS: CEROVITE ADV FORMULA TAB PO SCH (09:02)
[2016-12-06] MEDS: PANTOprazole SOD 40 MG TAB PO SCH (09:03)
[2016-12-06] MEDS: FERROUS SULFATE 325 MG TAB PO SCH ×2 (09:03→17:05)
[2016-12-06] MEDS: ASCORBIC ACID 500 MG TAB PO SCH (09:03)
[2016-12-06] MEDS: LISINOPRIL 20 MG TAB PO SCH (09:05)
[2016-12-06] MEDS: GLUCOSAMINE SULFATE 500 MG CAP PO SCH ×2 (09:05→21:26)
[2016-12-06] MEDS: DULOXETINE (CYMBALTA) 30 MG CAP PO SCH (09:05)
[2016-12-06] MEDS: MAGNESIUM OXIDE 400 MG TAB PO SCH ×2 (09:05→21:27)
[2016-12-06] MEDS: TOCOPHERYL, DL-ALPHA 400 INTER.UNIT CAP PO SCH (09:05)
[2016-12-06] MEDS: DORZOLAMIDE/TIMOLOL 22.3/6.8MG/ML 10 ML BTL OP SCH ×2 (09:06→21:27)
[2016-12-06] MEDS: VENLAFAXINE HCL XR 37.5 MG CAPXR PO SCH (09:06)
[2016-12-06] MEDS: OXYCODONE HCL 15 MG TABCR (OXYCONTIN) PO SCH ×2 (09:21→21:27)
[2016-12-06] MEDS: SODIUM CHLORIDE 0.9% 1000ML 1,000 ML IV SCH (13:56)
--- NOTE | 2016-12-06 16:53 | Progress Note ---
Internal Med Progress Note Date of Service: December 06, 2016. Provider Documentation: SUBJECTIVE: mentions of being bloated , did not had any bowel movement since yesterday still having dizzy spell with turning of head but improved since admission BP running high , denies of any symptoms of headache , sob or chest heaviness OBJECTIVE: Vital Signs-as noted below Exam: General-very pleasant , no sign of distress Lungs-CTA Heart-regular S1/S2 Abdomen-soft, non tender Extremities-no rash or deformity Neuro-AAO x3, no focal deficit Lab data as noted below. ASSESSMENT & PLAN: DIZZINESS Likely due to BPPV f CT head shows multiple old lacunar strokes Check MRI brain and carotid Doppler -normal study PRN meclizine PT consulted for Rosalba maneuver POSSIBLE URINARY TRACT INFECTION Reports of dysuria UA shows moderate leukocyte esterase, 10-30 WBC Afebrile; + tachycardia (likely from severe anxiety), + leukocytosis (13.5k); BP on higher side; lactic acid WNL blood cultures-pending urine culture-pin point growth no leukocytosis, afebrile D/C Rocephin PO Cipro for total 5 days HYPOMAGNESEMIA Recently started on mag supplement on last admission corrected ANXIETY PRN lorazepam CKD STAGE III Creat is stable at 1.2, baseline ~1.0-1.1 cr 0.9 today D/C IVF resume Lasix in AM HYPERTENSION BP on higher side likely due to anxiety- starting PRN Ativan resumed Lasix Continue lisinopril PRN IV Hydralazine ordered CONSTIPATION Abdominal x-ray shows increased fecal load/ fecal stasis Continue Senokot PRN and add Dulcolax PRN ordered for Lactulose , as pre Daughter was effective in last admission DM TYPE 2 Diet controlled Recent A1c 6.8 HYPOTHYROIDISM Continue levothyroxine CHRONIC BACK AND BLLE PAIN Continue prednisone 5 mg daily DIABETIC NEUROPATHY Continue Cymbalta DEPRESSION Continue Effexor DVT PROPHYLAXIS Lovenox SQ CODE STATUS DNR DISPOSITION possible discharge home tomorrow already established with home health for the last admission Medicine follow up with Dr Janny Kaur Spoke with Daughter Ban given update over the phone Vital Signs: Date Time Temp Pulse Resp B/P Pulse Ox O2 Delivery O2 Flow Rate FiO2 12/06/16 20:04 Room Air 12/06/16 19:52 36.9 66 17 154/88 92 Room Air 12/06/16 16:50 36.8 61 18 180/96 98 Room Air 176/83 172/92 12/06/16 16:18 Room Air 12/06/16 12:00 Room Air 12/06/16 11:40 36.5 62 18 175/93 97 Room Air 12/06/16 08:00 Room Air 12/06/16 07:59 36.5 67 19 157/93 94 74 148/91 93 127/85 12/06/16 03:39 36.5 79 16 157/91 91 Room Air 12/05/16 23:48 94 129/73 12/05/16 23:45 86 149/99 12/05/16 23:42 36.7 76 20 148/77 91 Room Air 12/05/16 23:30 Room Air 12/05/16 22:21 88 138/84 Lab Results: Results Past 24 Hours Test 12/06/16 06:49 Range/Units White Blood Count 8.59 4.8-10.8 K/uL Red Blood Count 4.19 4.2-5.4 M/uL Hemoglobin 13.6 12.0-16.0 g/dL Hematocrit 41.2 37-47 % Mean Corpuscular Volume 98.3 80-100 fL Mean Corpuscular Hemoglobin 32.5 25-34 pg Mean Corpuscular Hemoglobin Concent 33.0 32-36 g/dl RDW Standard Deviation 47.9 36.4-46.3 fL RDW Coefficient of Variation 13.3 11.5-14.5 % Platelet Count 206 130-400 K/uL Mean Platelet Volume 9.2 7.4-10.4 fL Sodium Level 137 136-145 mmol/L Potassium Level 4.7 3.5-5.1 mmol/L Chloride Level 99 98-107 mmol/L Carbon Dioxide Level 35 21-32 mmol/L Anion Gap 3.0 3-11 mmol/L Blood Urea Nitrogen 29 7-18 mg/dl Creatinine 0.97 0.60-1.20 mg/dl Est Creatinine Clear Calc Drug Dose 45.1 ml/min Estimated GFR () 66.7 Estimated GFR (Non- 57.5 BUN/Creatinine Ratio 29.9 10-20 Random Glucose 90 70-99 mg/dl Calcium Level 8.5 8.5-10.1 mg/dl Magnesium Level 2.3 1.8-2.4 mg/dl
[2016-12-06] MEDS ORDERED: CEFTRIAXONE SOD INJ 1 GM in DEXTROSE 5% ADD-VANTAGE 50ML 50 ML IV SCH (17:00)
[2016-12-06] MEDS ORDERED: BISACODYL 5 MG TABEC PO ONE (21:00)
[2016-12-06] MEDS ORDERED: LACTULOSE SYRUP 30 GM/45 ML UDP PO STA (21:06)
[2016-12-06] MEDS ORDERED: SENN8.6T7 PO (21:11)
--- NOTE | 2016-12-06 21:11 | Discharge Instructions ---
Discharge Instructions Date of Service December 06, 2016. Admission Reason for Admission: Dizziness Discharge Discharge Diagnosis / Problem: DIZZY SPELL , BENIGN POSITIONAL VERTIGO / CONSTIPATION Discharge Goals Goal(s): Decrease discomfort, Diagnostic testing Activity Recommendations Activity Limitations: resume your previous activity . Instructions / Follow-Up Instructions / Follow-Up HOSPITAL FOLLOW UP ON 12/11/2016 @1:[address] Janny Moon, DO Internal Medicine [facility] PLEASE TAKE PLENTY FOR FLUID AND VEGETABLES /FRUITS TO PREVENT CONSTIPATION MIRALAX 1 HEAPED TABLE SPOONFUL WITH 8 OZ OF BEVERAGE ( WATER /ORANGE JUICE / COFFEE ) EVERY DAY TILL YOU HAVE NORMAL BOWEL MOVEMENT DAILY CAN YOU FLEET ENEMA NEED IF NOT BOWEL MOVEMENT FOR 2 DAYS Current Hospital Diet Patient's current hospital diet: AHA Diet (Heart Healthy), Diabetes Type 2 Diet Discharge Diet Recommended Diet: Diabetes Type 2 Diet Pending Studies Studies pending at discharge: no Laboratory Results Hemoglobin A1c Test 11/26/16 05:20 Range/Units Estimated Average Glucose 148 mg/dl Hemoglobin A1c 6.8 H 4.5-5.6 % Lipid Panel Test 11/26/16 05:20 Range/Units Triglycerides Level 131 0-150 mg/dl Cholesterol Level 161 0-200 mg/dl HDL Cholesterol 55 mg/dl Cholesterol/HDL Ratio 2.9 LDL Cholesterol, Calculated 80 mg/dl Medical Emergencies . Who to Call and When: Medical Emergencies: If at any time you feel your situation is an emergency, please call 911 immediately. . Non-Emergent Contact Non-Emergency issues call your: Primary Care Provider . . "Provider Documentation" section prepared by Claudette Short. . VTE Core Measure Inpt VTE Proph given/why not?: Enoxaparin (Lovenox) [place] Drug Monitoring Program Search Results: no issues identified
[2016-12-06] MEDS ORDERED: LACTULOSE SYRUP 30 GM/45 ML UDP PO PRN (21:15)
[2016-12-06] MEDS: LATANOPROST 0.005% OP SOLN 2.5 ML BTL OPB SCH (21:27)
[2016-12-06] MEDS: SIMVASTATIN 20 MG TAB PO SCH (21:27)
[2016-12-06] MEDS: LORATADINE 10 MG TAB PO SCH (21:27)
[2016-12-06] MEDS: ENOXAPARIN 40 MG/0.4 ML SYR SC SCH (21:27)
[2016-12-06] MEDS: CIPROFLOXACIN 250 MG TAB PO SCH (21:46)
[2016-12-06] MEDS: DOCUSATE SODIUM/SENNA 50/8.6MG TAB PO SCH (21:46)
[2016-12-06] MEDS: ONDANSETRON INJ 2 MG/ML 2 ML VIAL IV PRN (22:56)
[2016-12-06] MEDS: HydrALAZINE HCL 20 MG/ML VIAL IV. PRN (23:06)
[2016-12-07] MEDS: LEVOTHYROXINE 75 MCG TAB PO SCH (06:41)
[2016-12-07 06:58] VITALS: BP_SYST 150; BP_SYST 156; BP_SYST 163; BP_DIAS 84; BP_DIAS 93; BP_DIAS 94; PULSE 62; PULSE 85; PULSE 89; TEMP 36.7; O2SAT 93
[2016-12-07] MEDS: CEROVITE ADV FORMULA TAB PO SCH (07:45)
[2016-12-07] MEDS: ASCORBIC ACID 500 MG TAB PO SCH (07:46)
[2016-12-07] MEDS: MAGNESIUM OXIDE 400 MG TAB PO SCH ×2 (07:46→21:07)
[2016-12-07] MEDS: FERROUS SULFATE 325 MG TAB PO SCH ×2 (07:46→17:22)
[2016-12-07] MEDS: CIPROFLOXACIN 250 MG TAB PO SCH ×2 (07:47→21:10)
[2016-12-07] MEDS: LISINOPRIL 20 MG TAB PO SCH (07:47)
[2016-12-07] MEDS: VENLAFAXINE HCL XR 37.5 MG CAPXR PO SCH (07:47)
[2016-12-07] MEDS: PANTOprazole SOD 40 MG TAB PO SCH (07:47)
[2016-12-07] MEDS: FUROSEMIDE 20 MG TAB PO SCH (07:48)
[2016-12-07] MEDS: DOCUSATE SODIUM/SENNA 50/8.6MG TAB PO SCH ×2 (07:48→21:06)
[2016-12-07] MEDS: TOCOPHERYL, DL-ALPHA 400 INTER.UNIT CAP PO SCH (07:48)
[2016-12-07] MEDS: DULOXETINE (CYMBALTA) 30 MG CAP PO SCH (07:49)
[2016-12-07] MEDS: GLUCOSAMINE SULFATE 500 MG CAP PO SCH ×2 (07:49→21:10)
[2016-12-07] MEDS: VENLAFAXINE HCL XR 75 MG CAPXR PO SCH (07:50)
[2016-12-07] MEDS: OXYCODONE HCL 15 MG TABCR (OXYCONTIN) PO SCH ×2 (07:51→21:18)
[2016-12-07] MEDS: POLYETHYLENE (MIRALAX) 17 GM PACK PO SCH (07:51)
[2016-12-07] MEDS: DORZOLAMIDE/TIMOLOL 22.3/6.8MG/ML 10 ML BTL OP SCH ×2 (07:51→21:05)
[2016-12-07] MEDS: ONDANSETRON INJ 2 MG/ML 2 ML VIAL IV PRN (07:56)
[2016-12-07] MEDS: BISACODYL 5 MG TABEC PO PRN (10:12)
[2016-12-07] MEDS ORDERED: LCTL30 PO (14:14)
[2016-12-07] MEDS ORDERED: MRLP17X PO (14:16)
[2016-12-07] MEDS ORDERED: BISACODYL 10 MG SUPP PR ONE (14:45)
[2016-12-07] MEDS ORDERED: NURSING VERBAL MED ORDER ONE (15:30)
[2016-12-07] MEDS ORDERED: SOD PHOSPHATE/SOD BIPHOSPHATE ENEMA 132 ML BTL PR ONE (15:45)
--- NOTE | 2016-12-07 17:09 | Progress Note ---
Internal Med Progress Note Date of Service: December 07, 2016. Provider Documentation: SUBJECTIVE: dizzy spell has resolved did not had any bowel movement with lactulose , Colace or miralax pt continues to feel bloated Fleet enema ordered, had bowel movement after enema , feels much better now no complain of chest pain or SOB OBJECTIVE: Vital Signs-as noted below Exam: General-very pleasant , no sign of distress Lungs-CTA Heart-regular S1/S2 Abdomen-soft, non tender Extremities-no rash or deformity Neuro-AAO x3, no focal deficit Lab data as noted below. ASSESSMENT & PLAN: DIZZINESS Likely due to BPPV CT head shows multiple old lacunar strokes MRI brain and carotid Doppler -normal study PRN meclizine PT consulted for Rosalba maneuver POSSIBLE URINARY TRACT INFECTION Reports of dysuria UA shows moderate leukocyte esterase, 10-30 WBC Afebrile; + tachycardia (likely from severe anxiety), + leukocytosis (13.5k); BP on higher side; lactic acid WNL blood cultures-pending urine culture-pin point growth no leukocytosis, afebrile D/C Rocephin PO Cipro for total 5 days HYPOMAGNESEMIA Recently started on mag supplement on last admission corrected ANXIETY PRN lorazepam CKD STAGE III Creat is stable at 1.2, baseline ~1.0-1.1 cr improved 0.9 resumed Lasix HYPERTENSION BP improved resumed Lasix Continue lisinopril PRN IV Hydralazine ordered CONSTIPATION Abdominal x-ray shows increased fecal load/ fecal stasis Continue Senokot PRN and add Dulcolax PRN ordered for Lactulose , had bowel movement with enema pt is counselled to continue bowel regimen at home to prevent recurrence DM TYPE 2 Diet controlled Recent A1c 6.8 HYPOTHYROIDISM Continue levothyroxine CHRONIC BACK AND BLLE PAIN Continue prednisone 5 mg daily DIABETIC NEUROPATHY Continue Cymbalta DEPRESSION Continue Effexor DVT PROPHYLAXIS Lovenox SQ CODE STATUS DNR DISPOSITION possible discharge home tomorrow already established with home health for the last admission Medicine follow up with Dr Janny Kaur Spoke with Daughter Ban given update over the phone Vital Signs: Date Time Temp Pulse Resp B/P Pulse Ox O2 Delivery O2 Flow Rate FiO2 12/07/16 08:00 Room Air 12/07/16 06:58 36.7 62 20 163/84 93 Room Air 85 156/93 89 150/94 12/07/16 00:20 Room Air 12/06/16 23:03 162/89 12/06/16 23:01 167/95 12/06/16 22:52 36.7 71 20 190/96 93 Room Air 155/100 145/95 12/06/16 22:07 36.9 66 17 92 12/06/16 20:04 Room Air 12/06/16 19:52 36.9 66 17 154/88 92 Room Air Lab Results: Results Past 24 Hours Test 12/07/16 07:44 12/07/16 11:42 12/07/16 16:58 Range/Units Bedside Glucose 110 158 152 70-90 mg/dl
[2016-12-07] MEDS ORDERED: CIPR250T5 PO (17:11)
[2016-12-07 18:33] VITALS: BP_SYST 114; BP_SYST 144; BP_DIAS 77; BP_DIAS 91; PULSE 84; TEMP 36.6; O2SAT 94
[2016-12-07 20:00] VITALS: O2SAT 96
[2016-12-07] MEDS: SIMVASTATIN 20 MG TAB PO SCH (21:07)
[2016-12-07] MEDS: LORATADINE 10 MG TAB PO SCH (21:10)
[2016-12-07] MEDS: ENOXAPARIN 40 MG/0.4 ML SYR SC SCH (21:11)
[2016-12-07] MEDS: LATANOPROST 0.005% OP SOLN 2.5 ML BTL OPB SCH (21:12)
[2016-12-07 23:08] VITALS: BP_SYST 128; BP_SYST 131; BP_SYST 140; BP_SYST 149; BP_SYST 154; BP_DIAS 74; BP_DIAS 82; PULSE 81; TEMP 36.7; O2SAT 94
[2016-12-07 23:48] VITALS: BP 180/95
[2016-12-08 01:20] VITALS: BP 195/81; PULSE 69
[2016-12-08] MEDS: HydrALAZINE HCL 20 MG/ML VIAL IV. PRN (01:23)
[2016-12-08 04:24] VITALS: BP 126/69; PULSE 75
[2016-12-08] MEDS: LEVOTHYROXINE 75 MCG TAB PO SCH (05:52)
[2016-12-08 07:08] VITALS: BP_SYST 109; BP_SYST 147; BP_SYST 173; BP_DIAS 102; BP_DIAS 103; BP_DIAS 73; PULSE 90; PULSE 96; TEMP 36.4; O2SAT 97
[2016-12-08] MEDS: DORZOLAMIDE/TIMOLOL 22.3/6.8MG/ML 10 ML BTL OP SCH (08:14)
[2016-12-08] MEDS: TOCOPHERYL, DL-ALPHA 400 INTER.UNIT CAP PO SCH (08:15)
[2016-12-08] MEDS: BISACODYL 5 MG TABEC PO PRN (08:15)
[2016-12-08] MEDS: VENLAFAXINE HCL XR 75 MG CAPXR PO SCH (08:15)
[2016-12-08] MEDS: PANTOprazole SOD 40 MG TAB PO SCH (08:15)
[2016-12-08] MEDS: DULOXETINE (CYMBALTA) 30 MG CAP PO SCH (08:15)
[2016-12-08] MEDS: OXYCODONE HCL 15 MG TABCR (OXYCONTIN) PO SCH (08:15)
[2016-12-08] MEDS: CIPROFLOXACIN 250 MG TAB PO SCH (08:16)
[2016-12-08] MEDS: CEROVITE ADV FORMULA TAB PO SCH (08:16)
[2016-12-08] MEDS: FERROUS SULFATE 325 MG TAB PO SCH (08:16)
[2016-12-08] MEDS: GLUCOSAMINE SULFATE 500 MG CAP PO SCH (08:16)
[2016-12-08] MEDS: LISINOPRIL 20 MG TAB PO SCH (08:16)
[2016-12-08] MEDS: FUROSEMIDE 20 MG TAB PO SCH (08:17)
[2016-12-08] MEDS: MAGNESIUM OXIDE 400 MG TAB PO SCH (08:17)
[2016-12-08] MEDS: ASCORBIC ACID 500 MG TAB PO SCH (08:17)
[2016-12-08] MEDS: DOCUSATE SODIUM/SENNA 50/8.6MG TAB PO SCH (08:17)
[2016-12-08] MEDS: VENLAFAXINE HCL XR 37.5 MG CAPXR PO SCH (08:18)
[2016-12-08] MEDS: POLYETHYLENE (MIRALAX) 17 GM PACK PO SCH (08:18)
[2016-12-08 10:19] VITALS: BP 141/87
[2016-12-08 11:52] VITALS: BP 141/87; PULSE 96; TEMP 36.4; O2SAT 97
--- NOTE | 2016-12-08 12:22 | Discharge Summary ---
Discharge Summary Date of Service December 08, 2016. Discharge Summary Admission Date: December 05, 2016 at 18:05 Discharge Date: December 08, 2016 Discharge Disposition: Home with services Principal Diagnosis: DIZZY SPELL , BENIGN POSITIONAL VERTIGO /CONSTIPATION Procedures: XRAY OF ABDOMEN : IMPRESSION: Increase in fecal load throughout the colon consistent with a component of fecal stasis. Considerable degenerative change of all major osseous structures. CAROTID DOPPLER : IMPRESSION: No evidence of hemodynamically significant internal carotid artery stenosis. MRI OR BRAIN CT HEAD Medication Reconciliation New Medications: Lactulose (Lactulose) 20 Gm/30 Ml Syrp 30 ML PO TID PRN for Constipation, #150 ML 4 Refills Polyethylene (Miralax) 17 Gm Pow 1 TBS PO DAILY, #1 BTL over the counter mix with 8 oz of beverage drink daily till you get regular bowel movement of once a day Ciprofloxacin (Ciprofloxacin HCl) 250 Mg Tab 250 MG PO Q12 for 2 Days, #4 TAB Sennosides-Docusate Sodium (Senokot S) 1 Tab Tab 1 TAB PO BID for 30 Days, #60 TAB Continued Medications: Acetaminophen (Acetaminophen) 325 Mg Tab 2 TAB PO QID PRN for Pain Ascorbic Acid (Vitamin C) 500 Mg Tab 1 TAB PO QAM Baclofen (Lioresal) 10 Mg Tab 10 MG PO TID PRN for Muscle Spasms Dorzolamide Hcl-Timolol Maleat (Cosopt Oph) 1 Chanelle Chanelle 1 DROPS OP BID, #10 ML 3 Refills Duloxetine HCl (Cymbalta) 30 Mg Cap 1 CAP PO DAILY for 30 Days, #30 CAP 2 Refills Ferrous Sulfate (Kp Ferrous Sulfate) 325 Mg Tab 1 TAB PO BID for 30 Days, #60 TAB 3 Refills Fluocinolone Acetonide (Fluocinolone Acetonide) Unknown Strength Cre 1 APPLN TOP BID PRN for rash Fluticasone Propionate (Nasal) (Flonase Allergy Relief) 50 Mcg/Act Spr 1 SPRAY FELIPE QAM PRN for Nasal Congestion Furosemide (Lasix) 20 Mg Tab 20 MG PO QAM Glucosamine Sulfate (Glucosamine) 1,000 Mg Tab 1000 MG PO BID, TAB Latanoprost (Xalatan 0.005% Oph Chanelle) 0.005 % Chanelle 1 DROP OPB HS Levothyroxine Sodium (Synthroid) 75 Mcg Tab 75 MCG PO QAM Lidocaine Hcl (Mouth-Throat) (Lidocaine Hcl) 2 % Chanelle 2 TBS PO UD COAT MOUTH ULCERS Lisinopril (Prinivil) 20 Mg Tab 20 MG PO QAM Loratadine (Claritin) 10 Mg Tab 10 MG PO HS Magic Swizzle (Magic Swizzle - SUCRALFA/ALUM/MAG/DIPHEN/LIDO) 240 Ml Susp 3-4 TSP PO Q4-6H PRN for MOUTH ULCERS 100ml Sucralfate 50ml Maalox 50ml Diphenhydramine 40ml 2% Aq. Lidocaine Swish and Swallow Magnesium Oxide (Mg Supplement (Magnesium Oxide) 400 Mg Tab 400 MG PO BID Multivitamins/Minerals (Mvi With Minerals) Tab 1 TAB PO DAILY, TAB Nystatin (Topical) (Nystatin) 1 Pow Pow 1 APPL TOP UD PRN for RASH Nystatin/Triamcinolone (Mycolog ||) Cr 1 APPL TOP UD PRN for rash Omeprazole (Prilosec) 40 Mg Cap 40 MG PO DAILY, CAP Oxycodone HCl (Oxycodone HCl ER) 30 Mg Tab 30 MG PO Q12 Prednisone (Prednisone) 5 Mg Tab 5 MG PO DAILY for 10 Days, #10 TAB 0 Refills Simethicone (Gas-X) 80 Mg Chw 80 MG PO QID PRN for GAS Simvastatin (Zocor) 20 Mg Tab 20 MG PO HS Venlafaxine Hcl (Venlafaxine Extended Rel) 75 Mg Cap 75 MG PO QAM Venlafaxine Hcl (Venlafaxine Extended Rel) 37.5 Mg Cap 37.5 MG PO QAM Vitamin E (E-400) 400 Unit Cap 1 TAB PO QAM Discontinued Medications: Sennosides-Docusate Sodium (Senokot S) 1 Tab Tab 1 TAB PO DAILY PRN for Constipation, #10 TAB 0 Refills Referrals At Discharge Follow up Referrals: Physician Referral - 12/11/16 with Janny Moon D.O. Admission Information HPI (per Admitting provider): This is a 76 year old female with PMH of HTN, DM 2, HL, CKD stage III, hypothyroidism, depression, and other problems listed below who presents to the ED for dizziness. Patient was recently admitted to [facility] from November 25- for EKG changes, ACS ruled out, ARF on CKD stage III, dehydration. She had echo and cardiology evaluation last admission. Pt states she was feeling better for 1st few days after discharge then had recurrence of prior symptoms on last admission , however states symptoms are worse this time. She reports dizziness, generalized weakness, difficulty ambulating, episodic diaphoresis, malaise. She was given meclizine in ER and is not feeling dizzy currently. She describes dizziness as "room spinning" sensation which occurs when she is lying flat, turns her head, and sometimes when she stands up. She uses a wheeled walker at home. Had trouble walking to restroom in ER. She reports poor food intake but trying to drink fluids. Pt has had nausea with 1 episode vomiting. Nausea resolved with Zofran in ER. She reports generalized abdominal discomfort and constipation. Had small hard bowel movements sporadically this week- last BM earlier today. Had dysuria this morning. Chronic productive cough is at baseline. She denies fever, chills, vision change, speech or swallowing difficultly, focal weakness or numbness, URI symptoms, chest pain, SOB, calf pain, edema. Pt reports no known hx of TIA or CVA. Physical Exam (per Admitting): General Appearance: + obese, + pertinent finding (alert anxious 76 year old female, sitting up in bed, daughter at bedside) Head: normocephalic, atraumatic Eyes: normal inspection, PERRL, EOMI ENT: hearing grossly normal, pharynx normal Neck: supple, no carotid bruits, trachea midline Respiratory/Chest: lungs clear, normal breath sounds, no respiratory distress, no accessory muscle use Cardiovascular: no murmur, + tachycardia (regular rhythm, rate 100) Abdomen/GI: normal bowel sounds, soft, + pertinent finding (obese abdomen. minimal RLQ tenderness. no guarding. 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 chronic bilateral upper arm weakness and decreased ROM due rotator cuff disease. strength 5/5 bilateral LE. ) Skin: normal color, warm/dry, + pertinent finding (healing abrasion right lower leg) Hospital Course DIZZINESS/BPPV symptom has resolved PT consulted -appreciate input : had Rosalba maneuver with positive response on L pt is counselled for continued Labyrinth exercise at home -instructions with pictures given to daughter referral made for Home Health-for BP monitoring , home PT for continued Rosalba if needed CT head shows multiple old lacunar strokes MRI brain and carotid Doppler -normal study PRN meclizine POSSIBLE URINARY TRACT INFECTION Reports of dysuria UA shows moderate leukocyte esterase, 10-30 WBC Afebrile; + tachycardia (likely from severe anxiety), + leukocytosis (13.5k); BP on higher side; lactic acid WNL blood cultures-pending urine culture-pin point growth no leukocytosis, afebrile D/C Rocephin PO Cipro for total 5 days -script sent to pharmacy HYPOMAGNESEMIA Recently started on mag supplement on last admission corrected ANXIETY PRN lorazepam CKD STAGE III Creat is stable at 1.2, baseline ~1.0-1.1 cr improved 0.9 resumed Lasix HYPERTENSION BP improved -was elevated in hospital due to anxiety , stress resumed Lasix Continue lisinopril Home Health visiting nurse to monitor BP at home with each visit CONSTIPATION Abdominal x-ray shows increased fecal load/ fecal stasis Continue Senokot PRN and add Dulcolax PRN ordered for Lactulose , had bowel movement with enema pt is counselled to continue bowel regimen at home to prevent recurrence DM TYPE 2 Diet controlled Recent A1c 6.8 HYPOTHYROIDISM Continue levothyroxine CHRONIC BACK AND BLLE PAIN Continue prednisone 5 mg daily DIABETIC NEUROPATHY Continue Cymbalta DEPRESSION Continue Effexor DVT PROPHYLAXIS Lovenox SQ CODE STATUS DNR DISPOSITION discharge home today already established with home health for the last admission Medicine follow up with Dr Janny Kaur Spoke with Daughter Ban given update over the phone Discharge Instructions Discharge Instructions Date of Service December 06, 2016. Admission Reason for Admission: Dizziness Discharge Discharge Diagnosis / Problem: DIZZY SPELL , BENIGN POSITIONAL VERTIGO / CONSTIPATION Discharge Goals Goal(s): Decrease discomfort, Diagnostic testing Activity Recommendations Activity Limitations: resume your previous activity . Instructions / Follow-Up Instructions / Follow-Up HOSPITAL FOLLOW UP ON 12/11/2016 @1:[address] Janny Moon, Internal Medicine [facility] PLEASE TAKE PLENTY FOR FLUID AND VEGETABLES /FRUITS TO PREVENT CONSTIPATION MIRALAX 1 HEAPED TABLE SPOONFUL WITH 8 OZ OF BEVERAGE ( WATER /ORANGE JUICE / COFFEE ) EVERY DAY TILL YOU HAVE NORMAL BOWEL MOVEMENT DAILY CAN YOU FLEET ENEMA NEED IF NOT BOWEL MOVEMENT FOR 2 DAYS Current Hospital Diet Patient's current hospital diet: AHA Diet (Heart Healthy), Diabetes Type 2 Diet Discharge Diet Recommended Diet: Diabetes Type 2 Diet Pending Studies Studies pending at discharge: no Laboratory Results Hemoglobin A1c Test 11/26/16 05:20 Range/Units Estimated Average Glucose 148 mg/dl Hemoglobin A1c 6.8 H 4.5-5.6 % Lipid Panel Test 11/26/16 05:20 Range/Units Triglycerides Level 131 0-150 mg/dl Cholesterol Level 161 0-200 mg/dl HDL Cholesterol 55 mg/dl Cholesterol/HDL Ratio 2.9 LDL Cholesterol, Calculated 80 mg/dl Medical Emergencies . Who to Call and When: Medical Emergencies: If at any time you feel your situation is an emergency, please call 911 immediately. . Non-Emergent Contact Non-Emergency issues call your: Primary Care Provider . . "Provider Documentation" section prepared by Claudette Short. . VTE Core Measure Inpt VTE Proph given/why not?: Enoxaparin (Lovenox[place] [place] Results: no issues identified Additional Copies To Janny Moon D.O.
--- NOTE | 2016-12-15 10:41 | EDITING REQUIRED CODING QUERY ---
CQSUPPORTING DIAGNOSIS NEEDED A supporting diagnosis is required for the test/procedure performed on this patient in order for us to be reimbursed by the patient's insurance. Please provide a supporting diagnosis for the following test/procedure listed below next to the test name along with your signature. *If there is no additional diagnosis for this patient that would support the following test/procedure please document that below next to the test/procedure. Test(s)/Procedure(s) that require a supporting diagnosis: DOS 12/07/16 THERAPY REHAB SERVICE OBSERVATOPM BED Ambulatory dysfunction , hx of Fall Provider Signature: Claudette Short Date: ____12/17/16 ___ Thank you Elle Kim Health Information Management Once completed, please kindly fax back to [phone] For questions please call [phone]
[2016-12-18] MEDS ORDERED: SENNTAB23 PO (14:58)
[2016-12-18] MEDS ORDERED: PRED-301 PO (14:58)
[2016-12-18] MEDS ORDERED: VENL150C56 PO (14:58)
[2016-12-18] MEDS ORDERED: MECL1TAB42 PO (14:58)
[2016-12-18] MEDS ORDERED: POLY335019 PO (14:58)
[2016-12-18] MEDS ORDERED: LCTL30 PO (14:58)
[2017-01-15] MEDS ORDERED: FRRS300 PO (15:16)
[2017-01-15] MEDS ORDERED: RIBO100T2 PO (15:16)
[2017-01-15] MEDS ORDERED: PRT40 PO (15:16)
[2017-01-15] MEDS ORDERED: ZNT150 PO ×2 (15:16→15:18)
[2017-01-15] MEDS ORDERED: PLV75 PO (15:16)
[2017-01-15] MEDS ORDERED: MAGN400C3 PO (15:16)
[2017-01-15] MEDS ORDERED: ANT25 PO (15:16)
[2017-01-15] MEDS ORDERED: LISI-461 PO (15:16)
[2017-03-12] MEDS ORDERED: CEFU1TAB33 PO (17:42)
[2017-03-12] MEDS ORDERED: POTA20TA16 PO (17:42)
[2017-04-08] MEDS ORDERED: DIPH1TAB87 PO (14:25)
[2017-04-16] MEDS ORDERED: OXYC-787 PO (18:45)
[2017-04-16] MEDS ORDERED: AMOX1TAB43 PO (18:45)
== END 2016-12-08 12:54 | disposition home health service (06) ==
LOC: ENRESERVTM → ENRESERVDT → C.EDB 13:28 → C.2T 18:05 → C.MS4W 12-06 22:24
PROVIDERS: ADMIT Family Medicine; ATTEND Hospitalist
DX: H81.10 Benign paroxysmal vertigo, unspecified ear (principal); N39.0 Urinary tract infection, site not specified; E11.40 Type 2 diabetes mellitus with diabetic neuropathy, unspecified; E03.9 Hypothyroidism, unspecified; F32.9 Major depressive disorder, single episode, unspecified; H40.9 Unspecified glaucoma; N18.3 Chronic kidney disease, stage 3 (moderate); E66.9 Obesity, unspecified; E83.42 Hypomagnesemia; K57.30 Diverticulosis of large intestine without perforation or abscess without bleeding; I12.9 Hypertensive chronic kidney disease with stage 1 through stage 4 chronic kidney disease, or unspecified chronic kidney disease; M19.90 Unspecified osteoarthritis, unspecified site; E78.5 Hyperlipidemia, unspecified; I87.2 Venous insufficiency (chronic) (peripheral); K59.00 Constipation, unspecified; Z66 Do not resuscitate; Z87.891 Personal history of nicotine dependence; Z79.52 Long term (current) use of systemic steroids; Z86.73 Personal history of transient ischemic attack (TIA), and cerebral infarction without residual deficits; Z96.653 Presence of artificial knee joint, bilateral; Z83.3 Family history of diabetes mellitus; Z82.49 Family history of ischemic heart disease and other diseases of the circulatory system; Z84.1 Family history of disorders of kidney and ureter; I65.23 Occlusion and stenosis of bilateral carotid arteries; Z91.81 History of falling; R26.2 Difficulty in walking, not elsewhere classified

== ENCOUNTER 2016-12-26 14:36 | Inpatient (IN) | payer OTHER ==
[~2016-12-26] VITALS: Ht 152.4 cm; Wt 73.4 kg
[~2016-12-26 14:36] MED LIST changes: +LCTL30 PO; +MECL1TAB42 PO; -MGNO400 PO; +POLY335019 PO; -PRD5 PO; +PRED-301 PO; -SENN8.6T7 PO; +SENNTAB23 PO; +VENL150C56 PO; -VENL37.593 PO; -VENL75CA73 PO
[2016-12-26] MEDS ORDERED: SODIUM CHLORIDE 0.9% 1000ML 1,000 ML IV STA (15:05)
[2016-12-26] MEDS ORDERED: ONDANSETRON INJ 2 MG/ML 2 ML VIAL IV STA (15:05)
--- NOTE | 2016-12-26 15:22 | EMERGENCY ROOM VISIT NOTE ---
"History Report prepared by Sherry: Lupe Rodriguez Under the Supervision of: Dr. Bart Pelletier D.O. First contact with patient: 14:57 Chief Complaint: WEAKNESS Stated Complaint: THROWING UP - WEAKNESS Nursing Triage Summary: pt here with generalized weakness, pt states may have been throwing up blood yesterday. also having diarrhea. History of Present Illness The patient is a 76 year old female who presents to the Emergency Room with complaints of persistent vomiting starting COOKER SODA. She has been vomiting after she eats. She vomits from 1-1.5 hours after eating. She also complains of difficulty swallowing and sore throat. She had an episode of vomiting which the daughter reports looked like it might be bloody. She also had some diarrhea 2 days ago. She had been taking medications for constipation recently. Her daughter reports that the diarrhea was foul smelling. Today she started feeling weak and had some diaphoresis. She was supposed to have an endoscopy 2 days ago , but was not able to go because of the diarrhea. She denies any headache and abdominal pain. Source of History: patient, family Onset: COOKER SODA Position: other (global) Quality: other (vomiting) Timing: other (persistent) Modifying Factors (Worsening): eating Associated Symptoms: + diaphoresis, + diarrhea, + sorethroat, + weakness, No abdominal pain, No headache Note: Pt reports difficulty swallowing. Review of Systems See HPI for pertinent positives & negatives. A total of 10 systems reviewed and were otherwise negative. Past Medical & Surgical Medical Problems: (1) CKD (chronic kidney disease), stage III (2) Depression (3) Diabetes mellitus type 2, diet-controlled (4) Diabetic neuropathy (5) Dyslipidemia (6) Gastric ulcer (7) HTN (hypertension) (8) Hypothyroid (9) KENIA (iron deficiency anemia) (10) Osteoarthritis (11) Rectal prolapse (12) Rectocele Surgical Problems: (1) H/O shoulder surgery (2) H/O umbilical hernia repair Family History Diabetes mellitus FATHER SISTER FH: CAD (coronary artery disease) MOTHER Stroke BROTHER Social History Smoking Status: Former Smoker Marital Status: Occupation Status: retired Current/Historical Medications Scheduled Ascorbic Acid (Vitamin C), 1 TAB PO QAM Dorzolamide Hcl-Timolol Maleat (Cosopt Oph), 1 DROPS OP BID Duloxetine HCl (Cymbalta), 1 CAP PO QAM Ferrous Sulfate (Kp Ferrous Sulfate), 1 TAB PO BID Furosemide (Lasix), 20 MG PO QAM Glucosamine Sulfate (Glucosamine), 1,000 MG PO QAM Latanoprost (Xalatan 0.005% Oph Chanelle), 1 DROP OPB HS Levothyroxine Sodium (Synthroid), 75 MCG PO QAM Lidocaine Hcl (Mouth-Throat) (Lidocaine Hcl), 2 TBS PO UD Lisinopril (Prinivil), 20 MG PO QAM Loratadine (Claritin), 10 MG PO HS Multivitamins/Minerals (Mvi With Minerals), 1 TAB PO DAILY Omeprazole (Prilosec), 40 MG PO QAM Oxycodone HCl (Oxycodone HCl ER), 30 MG PO Q12 Polyethylene Glycol 3350 (Miralax), 17 GM PO DAILY Prednisone (Prednisone), 5 MG PO QAM Sennosides-Docusate Sodium (Stool Softener), 1 TAB PO QAM Simvastatin (Zocor), 20 MG PO HS Venlafaxine Hcl (Effexor Extended Rel), 150 MG PO QAM Vitamin E (E-400), 1 TAB PO QAM Scheduled PRN Acetaminophen (Acetaminophen), 2 TAB PO QID PRN for Pain Baclofen (Lioresal), 10 MG PO TID PRN for Muscle Spasms Fluocinolone Acetonide (Fluocinolone Acetonide), 1 APPLN TOP BID PRN for rash Fluticasone Propionate (Nasal) (Flonase Allergy Relief), 1 SPRAY FELIPE QAM PRN for Nasal Congestion Lactulose (Lactulose), 30 ML PO TID PRN for Constipation Magic Swizzle (Magic Swizzle - SUCRALFA/ALUM/MAG/DIPHEN/LIDO), 3-4 TSP PO Q4-6H PRN for MOUTH ULCERS Meclizine Hcl (Meclizine Hcl), 1 TAB PO TID PRN for VERIGO/DIZZINESS Nystatin (Topical) (Nystatin), 1 APPL TOP UD PRN for RASH Nystatin/Triamcinolone (Mycolog ||), 1 APPL TOP UD PRN for rash Simethicone (Gas-X), 80 MG PO QID PRN for GAS Allergies Coded Allergies: Gabapentin (Verified Allergy, Severe, MOUTH SWELLS, 12/26/16) Pregabalin (Verified Allergy, Severe, MOUTH SWELLS, 12/26/16) Physical Exam Vital Signs Date Time Temp Pulse Resp B/P Pulse Ox O2 Delivery O2 Flow Rate FiO2 12/26/16 17:12 77 12/26/16 16:52 74 18 172/96 97 Room Air 12/26/16 15:50 76 20 162/88 97 Room Air 12/26/16 14:45 36.6 123 20 161/80 95 Room Air Physical Exam GENERAL: Patient is awake, alert, and in no acute distress. Patient is resting comfortably and showing no signs of anxiety EYES: The conjunctivae are clear. The pupils are round and reactive. EARS, NOSE, MOUTH AND THROAT: The nose is without any evidence of any deformity. Mucous membranes are dry tongue is midline NECK: The neck is nontender and supple. RESPIRATORY: Normal respiratory effort is noted there is no evidence of wheezing rhonchi or rales CARDIOVASCULAR: Regular rate and rhythm noted there no murmurs rubs or gallops normal S1 normal S2 GASTROINTESTINAL: The abdomen is mildly distended, but soft, no specific guarding or rigidity. MUSCULOSKELETAL/EXTREMITIES: There is no evidence of gross deformity full range of motion is noted in the hips and shoulders SKIN: There is no obvious evidence of any rash. There are no petechiae, pallor or cyanosis noted. Pedal edema noted bilaterally. NEUROLOGIC: Patient is awake alert and oriented x3 strength is diminished, but symmetric Medical Decision & Procedures ER Provider Diagnostic Interpretation: X-ray results as stated below per interpretation by me and the radiologist. Radiology results as stated below per my review and radiologist interpretation: CHEST ONE VIEW PORTABLE CLINICAL HISTORY: ABDOMINAL PAIN/GI pain. Nausea. COMPARISON STUDY: 12/05/2016 FINDINGS: The bones soft tissues and hemidiaphragms are normal. The cardiomediastinal silhouette is normal. The lungs are clear. The pulmonary vasculature is normal. IMPRESSION: Negative chest. Electronically signed by: Weston Vaz M.D. 12/26/2016 3:32 PM Dictated Date/Time: 12/26/2016 3:32 PM ABDOMEN AND PELVIS CT WITHOUT CONTRAST CT DOSE: 860.83 mGy.cm HISTORY: Nausea. Vomiting. vomiting TECHNIQUE: Multiaxial CT images of the abdomen and pelvis were performed without contrast. COMPARISON STUDY: 11/25/2016 FINDINGS: Lung bases are clear. Large fixed hiatal hernia. Configuration of the liver spleen and pancreas are unremarkable. Pancreas is fatty replaced. Gallstones are present within the gallbladder neck. Kidneys negative for hydronephrosis. Ectasia and moderate atherosclerotic change abdominal aorta. No evidence for aneurysm. Moderate increase in fecal load within the a sending as well as transverse colonic region. Scattered colonic diverticuli. Findings of mild chronic sigmoid diverticulosis. No evidence for acute diverticulitis. Considerable degenerative changes of the thoracolumbar spine. IMPRESSION: 1. Fixed hiatal Hernia. 2. Gallstones. 3. Increased fecal load within the ascending and transverse colon is consistent with fecal stasis. 4. Chronic sigmoid diverticulosis. Electronically signed by: Weston Vaz M.D. 12/26/2016 3:41 PM Dictated Date/Time: 12/26/2016 3:35 PM Laboratory Results 12/26/16 15:46 Red Blood Count 4.42, Mean Corpuscular Volume 92.3, Mean Corpuscular Hemoglobin 32.6, Mean Corpuscular Hemoglobin Concent 35.3, Mean Platelet Volume 8.7, Neutrophils (%) (Auto) 54.4, Lymphocytes (%) (Auto) 28.6, Monocytes (%) (Auto) 13.7, Eosinophils (%) (Auto) 2.1, Basophils (%) (Auto) 0.3, Neutrophils # (Auto ) 1.79, Lymphocytes # (Auto) 0.94, Monocytes # (Auto) 0.45, Eosinophils # (Auto ) 0.07, Basophils # (Auto) 0.01 12/26/16 15:46 12/26/16 17:48 Test 12/26/16 15:46 12/26/16 17:00 12/26/16 17:05 12/26/16 17:48 White Blood Count 3.29 K/uL (4.8-10.8) Red Blood Count 4.42 M/uL (4.2-5.4) Hemoglobin 14.4 g/dL (12.0-16.0) Hematocrit 40.8 % (37-47) Mean Corpuscular Volume 92.3 fL (80-100) Mean Corpuscular Hemoglobin 32.6 pg (25-34) Mean Corpuscular Hemoglobin Concent 35.3 g/dl (32-36) Platelet Count 187 K/uL (130-400) Mean Platelet Volume 8.7 fL (7.4-10.4) Neutrophils (%) (Auto) 54.4 % Lymphocytes (%) (Auto) 28.6 % Monocytes (%) (Auto) 13.7 % Eosinophils (%) (Auto) 2.1 % Basophils (%) (Auto) 0.3 % Neutrophils # (Auto) 1.79 K/uL (1.4-6.5) Lymphocytes # (Auto) 0.94 K/uL (1.2-3.4) Monocytes # (Auto) 0.45 K/uL (0.11-0.59) Eosinophils # (Auto) 0.07 K/uL (0-0.5) Basophils # (Auto) 0.01 K/uL (0-0.2) RDW Standard Deviation 42.1 fL (36.4-46.3) RDW Coefficient of Variation 12.4 % (11.5-14.5) Immature Granulocyte % (Auto) 0.9 % Immature Granulocyte # (Auto) 0.03 K/uL (0.00-0.02) Anion Gap 7.0 mmol/L (3-11) Estimated GFR () 51.6 Estimated GFR (Non- 44.5 BUN/Creatinine Ratio 16.5 (10-20) Calcium Level 8.6 mg/dl (8.5-10.1) Total Bilirubin 0.7 mg/dl (0.2-1) Alanine Aminotransferase (ALT/SGPT) 27 U/L (12-78) Alkaline Phosphatase 53 U/L (45-117) Creatine Kinase MB 4.0 ng/ml (0.5-3.6) Creatine Kinase MB Ratio (0-3.0) Troponin I < 0.015 ng/ml (0-0.045) Total Protein 7.0 gm/dl (6.4-8.2) Albumin 3.5 gm/dl (3.4-5.0) Lipase 160 U/L (73-393) Urine Color YELLOW Urine Appearance CLEAR (CLEAR) Urine pH 6.5 (4.5-7.5) Urine Specific [place] 1.006 (1.000-1.030) Urine Protein NEG (NEG) Urine Glucose (UA) NEG (NEG) Urine Ketones NEG (NEG) Urine Occult Blood TRACE (NEG) Urine Nitrite NEG (NEG) Urine Bilirubin NEG (NEG) Urine Urobilinogen NEG (NEG) Urine Leukocyte Esterase TRACE (NEG) Urine WBC (Auto) 1-5 /hpf (0-5) Urine RBC (Auto) 0-4 /hpf (0-4) Urine Hyaline Casts (Auto) 1-5 /lpf (0-5) Urine Epithelial Cells (Auto) >30 /lpf (0-5) Urine Bacteria (Auto) NEG (NEG) Urine Osmolality 123 mOms/kg (500-800) Prothrombin Time 10.8 SECONDS (9.0-12.0) Prothromb Time International Ratio 1.0 (0.9-1.1) Activated Partial Thromboplast Time 28.7 SECONDS (21.0-31.0) Partial Thromboplastin Ratio 1.1 Magnesium Level 1.4 mg/dl (1.8-2.4) Direct Bilirubin 0.3 mg/dl (0-0.2) Aspartate Amino Transf (AST/SGOT) 18 U/L (15-37) Total Creatine Kinase 74 U/L (26-192) Laboratory results per my review. Medications Administered Medications (Trade) Dose Ordered Sig/Fab Route Start Time Stop Time Status Last Admin Dose Admin Sodium Chloride (Nss 1000ml) 1,000 ml @ 999 mls/hr Q1H1M STAT IV 12/26/16 15:05 12/26/16 16:05 DC 12/26/16 15:46 999 MLS/HR Ondansetron HCl 4 mg 4 mg NOW STAT IV 12/26/16 15:05 12/26/16 15:06 DC 12/26/16 15:46 4 MG Sodium Chloride (Nss 1000ml) 1,000 ml @ 80 mls/hr [id number] IV 12/26/16 17:50 01/25/17 17:49 12/26/16 20:18 80 MLS/HR ECG Indication: weakness Rate (beats per minute): 74 Rhythm: normal sinus Findings: no ectopy, other (LVH by voltage criteria) Comparison ECG Date: 05-Dec-2016 Change: no significant change ED Course 1504: The patient was evaluated in room C11B. A complete history and physical examination were performed. 1505: Zofran Inj 4 mg IV, NSS 1000 ml @ 999 mls/hr IV. 1627: I discussed the patient's case with NILA Rodriguez. She will see the patient in consultation. 1636: I discussed the patient's case with NILA Bhakta. The patient will be evaluated for further management. 1638: Upon reevaluation, the patient is resting comfortably. I discussed results and treatment plan with her. She verbalizes agreement and understanding. The patient will be evaluated for further management and care. Medical Decision Prior records/ancillary studies reviewed. Triage Nursing notes reviewed. Additional history obtained from the family. Medication Reconciliation: I attest that I have personally reviewed the patient' s current medications list. The patient's history was concerning for nausea, vomiting, diarrhea. Differential diagnosis: Etiologies such as gastroenteritis, food borne illness, infections, appendicitis , diverticulitis, inflammatory bowel disease, obstruction, GI bleed, biliary pathology, as well as others were entertained. The patient is a 76-year-old female who presented to the emergency department with multiple complaints. The patient doesn't a history of chronic ongoing issues and a review of her most recent ER visit show that she's had similar symptoms in the past. She has been complaining of weakness as well as GI problems. The patient has a history of a hiatal hernia and was scheduled for an upper endoscopy last week which she was unable to go to because of illness. The patient was found have significant hyponatremia as well as weakness. She also has ongoing epigastric pain as well as nausea to the point where she is unable to eat. I discussed the patient's laboratory and radiographic studies with her. I also discussed his case with the on-call [facility]. They have agreed to evaluate the patient in the emergency department for further management and disposition. Consults Time Called: 1625 Consulting Physician: NILA Rodriguez Returned Call: 1627 I discussed the patient's case with her. She will see the patient in consultation. Additional Consults: Time Called: 1630 Consulted Physician: NILA Bhakta Returned Call: 1636 Additional Comments: I discussed the patient's case with her. The patient will be evaluated for further management. Impression Primary Impression: Hyponatremia Additional Impressions: Weakness Nausea Vomiting Epigastric abdominal pain Constipation Dehydration Scribe Attestation The scribe's documentation has been prepared under my direction and personally reviewed by me in its entirety. I confirm that the note above accurately reflects all work, treatment, procedures, and medical decision making performed by me. Departure Information Dispostion Being Evaluated By Hospitalist Referrals No Doctor, Assigned (PCP) Patient Instructions My [facility] Problem Qualifiers Additional Impressions: Vomiting Vomiting type: unspecified Vomiting Intractability: non-intractable Nausea presence: with nausea Qualified Codes: R11.2 - Nausea with vomiting, unspecified Constipation Constipation type: unspecified constipation type Qualified Codes: K59.00 - Constipation, unspecified"
--- NOTE | 2016-12-26 15:33 | DIAGNOSTIC IMAGING REPORT ---
CHEST ONE VIEW PORTABLE CLINICAL HISTORY: ABDOMINAL PAIN/GI pain. Nausea. COMPARISON STUDY: 12/05/2016 FINDINGS: The bones soft tissues and hemidiaphragms are normal. The cardiomediastinal silhouette is normal. The lungs are clear. The pulmonary vasculature is normal. IMPRESSION: Negative chest. Electronically signed by: Weston Vaz M.D. 12/26/2016 3:32 PM Dictated Date/Time: 12/26/2016 3:32 PM
--- NOTE | 2016-12-26 15:42 | DIAGNOSTIC IMAGING REPORT ---
ABDOMEN AND PELVIS CT WITHOUT CONTRAST CT DOSE: 860.83 mGy.cm HISTORY: Nausea. Vomiting. vomiting TECHNIQUE: Multiaxial CT images of the abdomen and pelvis were performed without contrast. COMPARISON STUDY: 11/25/2016 FINDINGS: Lung bases are clear. Large fixed hiatal hernia. Configuration of the liver spleen and pancreas are unremarkable. Pancreas is fatty replaced. Gallstones are present within the gallbladder neck. Kidneys negative for hydronephrosis. Ectasia and moderate atherosclerotic change abdominal aorta. No evidence for aneurysm. Moderate increase in fecal load within the a sending as well as transverse colonic region. Scattered colonic diverticuli. Findings of mild chronic sigmoid diverticulosis. No evidence for acute diverticulitis. Considerable degenerative changes of the thoracolumbar spine. IMPRESSION: 1. Fixed hiatal Hernia. 2. Gallstones. 3. Increased fecal load within the ascending and transverse colon is consistent with fecal stasis. 4. Chronic sigmoid diverticulosis. Electronically signed by: Weston Vaz M.D. 12/26/2016 3:41 PM Dictated Date/Time: 12/26/2016 3:35 PM
[2016-12-26 15:57] LABS: BASO % 0.3 %; BASO ABS # 0.01 K/uL (0-0.2); COMPLETE YES; EOS % 2.1 %; HEMATOCRIT 40.8 % (37-47); IG% 0.9 %; LYMPH % 28.6 %; LYMPH ABS # 0.94 K/uL (1.2-3.4); MEAN CELL VOLUME 92.3 fL (80-100); MEAN CORPUSCULAR HEMOGLOBIN 32.6 pg (25-34); MEAN CORPUSCULAR HGB CONC 35.3 g/dl (32-36); MEAN PLATELET VOLUME 8.7 fL (7.4-10.4); MONO % 13.7 %; NEUT % 54.4 %; PLATELET COUNT 187 K/uL (130-400); RED BLOOD COUNT 4.42 M/uL (4.2-5.4); WHITE BLOOD COUNT 3.29 K/uL (4.8-10.8)
[2016-12-26 16:24] LABS: ALKALINE PHOSPHATASE 53 U/L (45-117); ALT/SGPT 27 U/L (12-78); BLOOD UREA NITROGEN 20 mg/dl (7-18); BUN/CREATININE RATIO 16.5 (10-20); CALCIUM 8.6 mg/dl (8.5-10.1); CARBON DIOXIDE 31 mmol/L (21-32); CHLORIDE 82 mmol/L (98-107); GLUCOSE 116 mg/dl (70-99); SODIUM 120 mmol/L (136-145)
[2016-12-26 17:29] LABS: URINE APPEARANCE CLEAR (CLEAR); URINE BILIRUBIN NEG (NEG); URINE COLOR YELLOW; URINE EPITHELIAL CELL AUTO >30 /lpf (0-5); URINE NITRITE NEG (NEG); URINE PH 6.5 (4.5-7.5); URINE SPECIFIC GRAVITY 1.006 (1.000-1.030); UROBILINOGEN NEG (NEG)
[2016-12-26 17:34] LABS: MANUAL MICROSCOPIC REQUIRED? NO; REVIEW REQ? NO
[2016-12-26] MEDS ORDERED: SODIUM CHLORIDE 0.9% 1000ML 1,000 ML IV SCH (17:50)
[2016-12-26] MEDS ORDERED: ACETAMINOPHEN 325 MG TAB PO PRN (18:00)
[2016-12-26] MEDS ORDERED: ONDANSETRON INJ 2 MG/ML 2 ML VIAL IV PRN (18:00)
[2016-12-26 18:08] LABS: PARTIAL THROMBOPLASTIN RATIO 1.1; PROTHROMBIN TIME (PATIENT) 10.8 SECONDS (9.0-12.0)
[2016-12-26 18:09] LABS: POTASSIUM 3.7 mmol/L (3.5-5.1)
[2016-12-26] MEDS ORDERED: MECLIZINE HCL 25 MG TAB PO PRN (18:15)
[2016-12-26] MEDS ORDERED: BACLOFEN 10 MG TAB PO PRN (18:15)
[2016-12-26 18:17] LABS: MAGNESIUM 1.4 mg/dl (1.8-2.4)
[2016-12-26] MEDS ORDERED: LORAZEPAM 2 MG/ML 1 ML VIAL IV PRN (18:30)
[2016-12-26 19:16] VITALS: BP 208/110; PULSE 74; TEMP 36.7; O2SAT 96; BMI 32.6
[2016-12-26 19:36] VITALS: BP 143/90
[2016-12-26] MEDS: LISINOPRIL 10 MG TAB PO ONE ×2 (20:17→20:29)
[2016-12-26] MEDS: PANTOprazole INJ 40 MG in SYRINGE 0 ML IV SCH (20:17)
[2016-12-26] MEDS: OXYCODONE HCL 15 MG TABCR (OXYCONTIN) PO SCH (20:17)
[2016-12-26] MEDS: MAGNESIUM SULFATE 1GM / D5W 1 GM in PREMIXED IN D5W 100 ML IV SCH ×2 (20:18→21:00)
[2016-12-26] MEDS: LORATADINE 10 MG TAB PO SCH (20:21)
[2016-12-26] MEDS: LATANOPROST 0.005% OP SOLN 2.5 ML BTL OPB SCH (20:25)
[2016-12-26] MEDS: DORZOLAMIDE/TIMOLOL 22.3/6.8MG/ML 10 ML BTL OP SCH (20:25)
[2016-12-26] MEDS: DOCUSATE SODIUM 100 MG CAP PO SCH (20:25)
[2016-12-26] MEDS: SIMVASTATIN 20 MG TAB PO SCH (20:26)
[2016-12-26] MEDS ORDERED: OXYCODONE HCL IR 30 MG TAB (IMMEDIATE RELEASE) PO SCH (21:00)
--- NOTE | 2016-12-26 21:03 | History and Physical ---
History & Physical Date of Service December 26, 2016. History & Physical This is a 76 year old extremely anxious female with a PMH of DM2, HTN, hypothyroidism, CKD stage 3 - recently in [facility] due to vertigo presents to the ER with nausea/vomiting/diarrhea. Daughter is in the room with the patient and gives most of the history; states that she developed diarrhea on Thursday, December 24 - then developed vomiting on the evening of December 25. Today; patient states that she is extremely weak; cannot walk. She is extremely anxious during exam. No chest pain, no shortness of breath. She has diffuse abdominal pain. C/o fevers/chills x2 days. Questionable black emesis; initially, patient stated no, but daughter stated yes. Currently, she is lying in bed, no nausea; +anxious. +fevers/chills +nausea/vomiting/diarrhea +weakness, generalized fatigue +anxiety +chronic pain, low back, R shoulder, lower extremities VITALS: Last Vital Signs Documentation Date Time Temp Pulse Resp B/P Pulse Ox O2 Delivery O2 Flow Rate FiO2 12/26/16 19:36 143/90 12/26/16 19:16 36.7 74 20 96 Room Air GEN: +anxious CVS: +tachycardia, RRR LUNGS: CTA b/l, no wheezing ABD: diffusely tender, hyperactive bowel sounds EXT: trace edema Diarrhea, possible Overflow secondary to Constipation c/o fevers/chills, nausea/vomiting as well Possibly overflow diarrhea, as abdominal CT shows fecal content at this point, we can add IVFs due to significant dehydration Zofran PRN we can continue clears for now GI evaluation; possible EGD? to note: patient has had a gastric ulcer in the past, managed with Prilosec; repeat EGD was pending for 12/24 but she could not make it Protonix BID due to possible coffee ground emesis? H/H stable, monitor Hyponatremia this seems like hypovolemic hyponatremia secondary to vomiting + diarrhea will give IVFs Na = 120 on admission, recheck pending for this evening Hypomagnesemia secondary to diarrhea replace and recheck in AM DM2 fairly well controlled at home, with A1c < 7% can hold insulin for now; monitor BSGs will add sliding scale once improved PO intake HTN elevated during exam, secondary to anxiety given extra dose of 10mg Lisinopril continue EBENEZER-I CKD stage 3 creat = 1.2, around baseline avoid nephrotoxic agents when able IVFs PMR continue prednisone DVT ppx SCDs, possible GI bleed? FULL, NO MECH VENT
--- NOTE | 2016-12-26 21:21 | History and Physical ---
"History & Physical Date & Time of Service: December 26, 2016 ~ 17:30 Chief Complaint: Nausea, Vomiting, Weakness Primary Care Physician: Markell Kline M.D. History of Present Illness 76 year old female who presents to the ER with nausea, vomiting, and weakness. Patient was recently admitted to [facility] 12/05 - 12/08 for dizziness felt to be due to BPPV and also UTI. Patient had been doing well since her discharge. However over the past couple of days she developed nausea and vomiting. Patient reports about 5 episodes of vomiting in this time period. She denies hematemesis however reports it may have looked like coffee grounds at some point. Daughter is at the bedside and reports she has had a few episodes of diarrhea as well. She reports the first time was very dark however the rest were brown. She denies BRBPR. Patient reports one episode of epigastric pain that radiated around to the right and to the back. That has since resolved. She reports difficulty swallowing at times and feels as though things get stuck in her chest. She denies fever and chills. No chest pain, shortness of breath, lightheadedness, dizziness, diaphoresis, or syncopal events. Today she felt generally weak. She denies urinary symptoms. In the ER, patient's Na+ is 120. CT abd/pelvis is negative for acute findings. She was given IVF and Zofran. Past Medical/Surgical History Medical Problems: (1) CKD (chronic kidney disease), stage III Status: Chronic (2) Depression Status: Chronic (3) Diabetes mellitus type 2, diet-controlled Status: Chronic (4) Diabetic neuropathy Status: Chronic (5) Dyslipidemia Status: Chronic (6) Gastric ulcer Status: Chronic (7) HTN (hypertension) Status: Chronic (8) Hypothyroid Status: Chronic (9) KENIA (iron deficiency anemia) Status: Chronic (10) Osteoarthritis Status: Chronic (11) Rectal prolapse Permanent Comment: s/p repair Status: Chronic (12) Rectocele Permanent Comment: s/p repair Status: Chronic Surgical Problems: (1) H/O shoulder surgery Status: Chronic (2) H/O umbilical hernia repair Status: Chronic Family History Diabetes mellitus FATHER SISTER FH: CAD (coronary artery disease) MOTHER Stroke BROTHER Social History Smoking Status: Never Smoker Alcohol Use: none Immunizations History of Influenza Vaccine: Yes Influenza Vaccine Date: Apr 29, 2016 History of Tetanus Vaccine?: Yes (UTD) Tetanus Immunization Date: Feb 29, 2008 History of Pneumococcal: Yes Pneumococcal Date: Apr 29, 2016 Multi-Drug Resistant Organisms History of MDRO: No Allergies Coded Allergies: Gabapentin (Verified Allergy, Severe, MOUTH SWELLS, 12/26/16) Pregabalin (Verified Allergy, Severe, MOUTH SWELLS, 12/26/16) Home Medications Scheduled Ascorbic Acid (Vitamin C), 1 TAB PO QAM Dorzolamide Hcl-Timolol Maleat (Cosopt Oph), 1 DROPS OP BID Duloxetine HCl (Cymbalta), 1 CAP PO QAM Ferrous Sulfate (Kp Ferrous Sulfate), 1 TAB PO BID Furosemide (Lasix), 20 MG PO QAM Glucosamine Sulfate (Glucosamine), 1,000 MG PO QAM Latanoprost (Xalatan 0.005% Oph Chanelle), 1 DROP OPB HS Levothyroxine Sodium (Synthroid), 75 MCG PO QAM Lidocaine Hcl (Mouth-Throat) (Lidocaine Hcl), 2 TBS PO UD Lisinopril (Prinivil), 20 MG PO QAM Loratadine (Claritin), 10 MG PO HS Multivitamins/Minerals (Mvi With Minerals), 1 TAB PO DAILY Omeprazole (Prilosec), 40 MG PO QAM Oxycodone HCl (Oxycodone HCl ER), 30 MG PO Q12 Polyethylene Glycol 3350 (Miralax), 17 GM PO DAILY Prednisone (Prednisone), 5 MG PO QAM Sennosides-Docusate Sodium (Stool Softener), 1 TAB PO QAM Simvastatin (Zocor), 20 MG PO HS Venlafaxine Hcl (Effexor Extended Rel), 150 MG PO QAM Vitamin E (E-400), 1 TAB PO QAM Scheduled PRN Acetaminophen (Acetaminophen), 2 TAB PO QID PRN for Pain Baclofen (Lioresal), 10 MG PO TID PRN for Muscle Spasms Fluocinolone Acetonide (Fluocinolone Acetonide), 1 APPLN TOP BID PRN for rash Fluticasone Propionate (Nasal) (Flonase Allergy Relief), 1 SPRAY FELIPE QAM PRN for Nasal Congestion Lactulose (Lactulose), 30 ML PO TID PRN for Constipation Magic Swizzle (Magic Swizzle - SUCRALFA/ALUM/MAG/DIPHEN/LIDO), 3-4 TSP PO Q4-6H PRN for MOUTH ULCERS Meclizine Hcl (Meclizine Hcl), 1 TAB PO TID PRN for VERIGO/DIZZINESS Nystatin (Topical) (Nystatin), 1 APPL TOP UD PRN for RASH Nystatin/Triamcinolone (Mycolog ||), 1 APPL TOP UD PRN for rash Simethicone (Gas-X), 80 MG PO QID PRN for GAS Review of Systems ROS per HPI, all other systems reviewed and negative Physical Exam Vital Signs Date Time Temp Pulse Resp B/P Pulse Ox O2 Delivery O2 Flow Rate FiO2 12/26/16 19:36 143/90 12/26/16 19:16 36.7 74 20 208/110 96 Room Air 12/26/16 18:56 74 16 93/40 97 Room Air 12/26/16 18:40 74 16 184/96 96 Room Air 12/26/16 17:12 77 12/26/16 16:52 74 18 172/96 97 Room Air 12/26/16 15:50 76 20 162/88 97 Room Air 12/26/16 14:45 36.6 123 20 161/80 95 Room Air General Appearance: no apparent distress Head: normocephalic Eyes: normal inspection ENT: hearing grossly normal Neck: supple, no JVD Respiratory/Chest: lungs clear, normal breath sounds, no respiratory distress Cardiovascular: regular rate, rhythm, no edema, normal peripheral pulses Abdomen/GI: normal bowel sounds, non tender, soft Extremities/Musculoskelatal: normal inspection, no calf tenderness Neurologic/Psych: no motor/sensory deficits, alert, normal mood/affect, oriented x 3 Skin: normal color, warm/dry Diagnostics Laboratory Results Results Past 24 Hours Test 12/26/16 15:46 12/26/16 17:00 12/26/16 17:05 12/26/16 17:48 Range/Units White Blood Count 3.29 4.8-10.8 K/uL Red Blood Count 4.42 4.2-5.4 M/uL Hemoglobin 14.4 12.0-16.0 g/dL Hematocrit 40.8 37-47 % Mean Corpuscular Volume 92.3 80-100 fL Mean Corpuscular Hemoglobin 32.6 25-34 pg Mean Corpuscular Hemoglobin Concent 35.3 32-36 g/dl Platelet Count 187 130-400 K/uL Mean Platelet Volume 8.7 7.4-10.4 fL Neutrophils (%) (Auto) 54.4 % Lymphocytes (%) (Auto) 28.6 % Monocytes (%) (Auto) 13.7 % Eosinophils (%) (Auto) 2.1 % Basophils (%) (Auto) 0.3 % Neutrophils # (Auto) 1.79 1.4-6.5 K/uL Lymphocytes # (Auto) 0.94 1.2-3.4 K/uL Monocytes # (Auto) 0.45 0.11-0.59 K/uL Eosinophils # (Auto) 0.07 0-0.5 K/uL Basophils # (Auto) 0.01 0-0.2 K/uL RDW Standard Deviation 42.1 36.4-46.3 fL RDW Coefficient of Variation 12.4 11.5-14.5 % Immature Granulocyte % (Auto) 0.9 % Immature Granulocyte # (Auto) 0.03 0.00-0.02 K/uL Sodium Level 120 136-145 mmol/L Potassium Level 3.7 3.5-5.1 mmol/L Chloride Level 82 98-107 mmol/L Carbon Dioxide Level 31 21-32 mmol/L Anion Gap 7.0 3-11 mmol/L Blood Urea Nitrogen 20 7-18 mg/dl Creatinine 1.20 0.60-1.20 mg/dl Estimated GFR () 51.6 Estimated GFR (Non- 44.5 BUN/Creatinine Ratio 16.5 10-20 Random Glucose 116 70-99 mg/dl Calcium Level 8.6 8.5-10.1 mg/dl Magnesium Level 1.4 1.8-2.4 mg/dl Total Bilirubin 0.7 0.2-1 mg/dl Direct Bilirubin 0.3 0-0.2 mg/dl Aspartate Amino Transf (AST/SGOT) 18 15-37 U/L Alanine Aminotransferase (ALT/SGPT) 27 12-78 U/L Alkaline Phosphatase 53 45-117 U/L Total Creatine Kinase 74 26-192 U/L Creatine Kinase MB 4.0 0.5-3.6 ng/ml Creatine Kinase MB Ratio 0-3.0 Troponin I < 0.015 0-0.045 ng/ml Total Protein 7.0 6.4-8.2 gm/dl Albumin 3.5 3.4-5.0 gm/dl Lipase 160 73-393 U/L Urine Color YELLOW Urine Appearance CLEAR CLEAR Urine pH 6.5 4.5-7.5 Urine Specific [place] 1.006 1.000-1.030 Urine Protein NEG NEG Urine Glucose (UA) NEG NEG Urine Ketones NEG NEG Urine Occult Blood TRACE NEG Urine Nitrite NEG NEG Urine Bilirubin NEG NEG Urine Urobilinogen NEG NEG Urine Leukocyte Esterase TRACE NEG Urine WBC (Auto) 1-5 0-5 /hpf Urine RBC (Auto) 0-4 0-4 /hpf Urine Hyaline Casts (Auto) 1-5 0-5 /lpf Urine Epithelial Cells (Auto) >30 0-5 /lpf Urine Bacteria (Auto) NEG NEG Urine Osmolality 123 500-800 mOms/kg Prothrombin Time 10.8 9.0-12.0 SECONDS Prothromb Time International Ratio 1.0 0.9-1.1 Activated Partial Thromboplast Time 28.7 21.0-31.0 SECONDS Partial Thromboplastin Ratio 1.1 Test 12/26/16 19:47 Range/Units Osmolality 260 280-300 mOsm/kg Microbiology Results 12/26/16 Urine Culture, Received Pending Diagnostic Radiology CXR IMPRESSION: Negative chest. CT ABD/PELVIS IMPRESSION: 1. Fixed hiatal Hernia. 2. Gallstones. 3. Increased fecal load within the ascending and transverse colon is consistent with fecal stasis. 4. Chronic sigmoid diverticulosis. Impression Assessment and Plan HYPONATREMIA - admit to tele - patient presenting with nausea, vomiting, diarrhea, and generalized weakness; found to have Na+120 - likely hypovolemic hyponatremia from GI loss of vomiting and diarrhea - s/p 1L NSS in ED, will continue with NSS @ 80ml/hr and recheck Na+ at 1930 and adjust accordingly - check urine and serum osmo NAUSEA, VOMITING, DIARRHEA - patient was scheduled to have an EGD on 12/24 to follow up on an healed ulcer from EGD 05/2016 that was done for anemia - possible coffee ground emesis; hgb stable, will place on IV PPI BID - patient also reports dysphagia - ? esophageal stricture - will have nursing preform bedside swallow before feeding patient; clear liquid diet ordered if she passes swallow eval - CT abd/pelvis negative for acute findings; gallstones noted and patient reports epigastric pain radiating to the back therefore will check RUQ US, may need HIDA; noted afebrile without leukocytosis so acute cholecystitis unlikely - CT also showing constipation - suspect diarrhea was from overflow diarrhea due to constipation; however will check stool studies; start bowel regimen of Miralax and Colace - GI consult - U/A does not appear infected HTN - BP elevated, likely due to anxiety - will give an an additional dose of lisinopril tonight - continue to monitor BP and make adjustments as needed DM, DIET CONTROLLED - hgb a1c 7.0 08/2016 - monitor glucose CHRONIC PAIN, OSTEOARTHRITIS - continue home meds including oxycodone and prednisone - suspect chronic narcotics are contributing to the constipation - BP stable so no role for stress dose steroids HYPOTHYROIDISM - continue levothyroxine DVT PROPHYLAXIS - SCDs due to possible upper GI bleed CODE STATUS - Patient is a full code without mechanical ventilator as per my discussion with her. DISPO - In my clinical judgment this beneficiary meets acute admission criteria, established by [facility], that includes being hospitalized through two midnights. Advanced Directives Existing Living Will: No Existing Power of Die Cast Technician: No VTE Prophylaxis VTE Risk Assessment Done? Y/N: Yes Risk Level: Moderate"
[2016-12-26 21:28] LABS: HEMATOCRIT 38.2 % (37-47)
[2016-12-27] VITALS (9 sets, daily range): BP systolic 126–191; BP diastolic 87–124; PULSE 66–81; TEMP 36.4–36.8; O2SAT 92–96
[2016-12-27] MEDS: CLONIDINE HCL 0.1 MG TAB PO PRN ×2 (01:30→17:02)
[2016-12-27] MEDS: LEVOTHYROXINE 75 MCG TAB PO SCH (05:46)
[2016-12-27 06:48] LABS: MEAN CORPUSCULAR HEMOGLOBIN 32.2 pg (25-34); MEAN CORPUSCULAR HGB CONC 34.6 g/dl (32-36); MEAN PLATELET VOLUME 8.9 fL (7.4-10.4); PLATELET COUNT 171 K/uL (130-400); RED BLOOD COUNT 4.41 M/uL (4.2-5.4); WHITE BLOOD COUNT 2.87 K/uL (4.8-10.8)
[2016-12-27 07:24] LABS: BUN/CREATININE RATIO 16.6 (10-20); CALCIUM 8.9 mg/dl (8.5-10.1); CREATININE 0.92 mg/dl (0.60-1.20); MAGNESIUM 2.3 mg/dl (1.8-2.4); POTASSIUM 3.8 mmol/L (3.5-5.1)
[2016-12-27] MEDS: DULOXETINE (CYMBALTA) 30 MG CAP PO SCH (07:59)
[2016-12-27] MEDS: FERROUS SULFATE 325 MG TAB PO SCH ×2 (07:59→17:02)
[2016-12-27] MEDS: PANTOprazole INJ 40 MG in SYRINGE 0 ML IV SCH ×2 (08:00→21:09)
[2016-12-27] MEDS ORDERED: DEXTROSE 5% 1000ML 1,000 ML IV SCH (08:00)
[2016-12-27] MEDS: DORZOLAMIDE/TIMOLOL 22.3/6.8MG/ML 10 ML BTL OP SCH ×2 (08:01→21:10)
[2016-12-27] MEDS: DOCUSATE SODIUM 100 MG CAP PO SCH ×3 (08:01→21:19)
[2016-12-27] MEDS: POLYETHYLENE (MIRALAX) 17 GM PACK PO SCH (08:01)
[2016-12-27] MEDS: VENLAFAXINE HCL XR 150 MG CAPXR PO SCH (08:01)
[2016-12-27] MEDS: CEROVITE ADV FORMULA TAB PO SCH (08:01)
[2016-12-27] MEDS: TOCOPHERYL, DL-ALPHA 400 INTER.UNIT CAP PO SCH (08:02)
[2016-12-27] MEDS: ASCORBIC ACID 500 MG TAB PO SCH (08:02)
[2016-12-27] MEDS: OXYCODONE HCL 15 MG TABCR (OXYCONTIN) PO SCH ×2 (08:03→21:10)
[2016-12-27] MEDS ORDERED: DEXTROSE 50% 50 ML SYR IV PRN (08:15)
[2016-12-27] MEDS ORDERED: GLUCAGON FOR INJ 1 MG VIAL SQ PRN (08:15)
[2016-12-27] MEDS ORDERED: GLUCOSE 40% GEL 15 GM TUBE PO PRN (08:15)
[2016-12-27] MEDS ORDERED: GLUCOSE 10 TABS/TUBE PO PRN (08:15)
[2016-12-27] MEDS ORDERED: LISINOPRIL 20 MG TAB PO SCH (09:00)
--- NOTE | 2016-12-27 09:21 | DIAGNOSTIC IMAGING REPORT ---
ULTRASOUND RIGHT UPPER QUADRANT ABDOMEN CLINICAL HISTORY: Nausea and vomiting. Cholelithiasis. COMPARISON STUDY: Abdominal CT dated 12/26/2016. TECHNIQUE: Real-time, grayscale, and color flow sonography of the right upper quadrant of the abdomen was performed. Images are reviewed in the transverse and longitudinal planes. FINDINGS: Liver: The liver is normal in size and and demonstrates heterogeneous echotexture. There is no intrahepatic biliary ductal dilatation. The main portal vein is patent. Gallbladder: There are numerous calcified gallstones. There is no gallbladder wall thickening or pericholecystic fluid. A sonographic Negro's sign is reportedly absent. The common bile duct measures up to 0.6 cm in diameter. Pancreas: Not well visualized due to overlying bowel gas. Right kidney: Survey images of the right kidney demonstrate cortical atrophy and increased echotexture. There is no hydronephrosis. Ascites: None. IMPRESSION: 1. Cholelithiasis without sonographic evidence of acute cholecystitis. 2. The pancreas was not well visualized due to overlying bowel gas. Electronically signed by: Sumit Guerrero M.D. 12/27/2016 9:19 AM Dictated Date/Time: 12/27/2016 9:18 AM
--- NOTE | 2016-12-27 10:40 | Progress Note ---
Subjective Date of Service: December 27, 2016. Subjective Pt evaluation today including: conversation w/ patient, physical exam, lab review, review of studies, review of inpatient medication list Saw/examined the patient in room 211 She is +anxious abdominal pain improving; no diarrhea while she has been here +nausea she states she can't eat breakfast, but did not tell me why Very difficult to obtain history due patient's anxiety and not giving much info Problem List Medical Problems: (1) Acute kidney injury Status: Acute (2) Constipation Status: Acute (3) Hypomagnesemia Status: Acute (4) Non-STEMI (non-ST elevated myocardial infarction) Status: Acute (5) Weakness Status: Acute Review of Systems Constitutional: + weakness Respiratory: No shortness of breath Cardiac: No chest pain, No edema, No palpitations Abdomen: + nausea, No diarrhea (improved), No pain (improved), No vomiting Musculoskeletal: + joint pain Female : No dysuria, No urinary frequency Psychiatric: + anxiety Heme: No abnormal bleeding/bruising Medications Current Inpatient Medications Medications (Trade) Dose Ordered Sig/Fab Route Start Time Stop Time Status Last Admin Dose Admin Acetaminophen (Tylenol Tab) 650 mg Q4H PRN PO 12/26/16 18:00 01/25/17 17:59 Ondansetron HCl 4 mg 4 mg Q6H PRN IV 12/26/16 18:00 01/25/17 17:59 Pantoprazole Sodium/Syringe (Protonix Inj/ Syringe) 10 ml @ 5 mls/min DAILY@09,21 IV 12/26/16 20:00 01/25/17 19:59 12/27/16 08:00 5 MLS/MIN Ascorbic Acid (Vitamin C Tab) 500 mg QAM PO 12/27/16 09:00 01/26/17 08:59 12/27/16 08:02 500 MG Baclofen (Lioresal Tab) 10 mg TID PRN PO 12/26/16 18:15 01/25/17 18:14 Dorzolamide/ Timolol (Cosopt Op Soln) 1 drops BID OP 12/26/16 21:00 01/25/17 20:59 12/27/16 08:01 1 DROPS Duloxetine HCl (Cymbalta Cap) 30 mg QAM PO 12/27/16 09:00 01/26/17 08:59 12/27/16 07:59 30 MG Latanoprost (Xalatan Oph Soln) 1 drops HS OPB 12/26/16 21:00 01/25/17 20:59 12/26/16 20:25 1 DROPS Levothyroxine Sodium (Synthroid Tab) 75 mcg DAILYBB PO 12/27/16 06:00 01/26/17 05:59 12/27/16 05:46 75 MCG Lisinopril (Zestril Tab) 20 mg QAM PO 12/27/16 09:00 01/26/17 08:59 12/27/16 07:59 20 MG Loratadine (Claritin Tab) 10 mg HS PO 12/26/16 21:00 01/25/17 20:59 12/26/16 20:21 10 MG Meclizine HCl (Antivert Tab) 25 mg TID PRN PO 12/26/16 18:15 01/25/17 18:14 Multivitamins/ Minerals (Multivitamin W/ Minerals Tab) 1 tab DAILY PO 12/27/16 09:00 01/26/17 08:59 12/27/16 08:01 1 TAB Prednisone (PredniSONE TAB) 5 mg QAM PO 12/27/16 09:00 01/26/17 08:59 12/27/16 08:02 5 MG Simvastatin (Zocor Tab) 20 mg HS PO 12/26/16 21:00 01/25/17 20:59 12/26/16 20:26 20 MG Venlafaxine HCl (effeXOR EXTENDED REL CAP) 150 mg QAM PO 12/27/16 09:00 01/26/17 08:59 12/27/16 08:01 150 MG qb-Mpkmk-Qdtasizyti Acetate (Vitamin E Cap) 400 interunit QAM PO 12/27/16 09:00 01/26/17 08:59 12/27/16 08:02 400 INTERUNIT Ferrous Sulfate (Feosol Tab) 325 mg BIDM PO 12/27/16 07:30 01/26/17 07:29 12/27/16 07:59 325 MG Polyethylene (Miralax Powder Packet) 17 gm DAILY PO 12/27/16 09:00 01/26/17 08:59 12/27/16 08:01 17 GM Docusate Sodium (coLACE CAP) 100 mg BID PO 12/26/16 21:00 01/25/17 20:59 12/27/16 08:01 100 MG Lorazepam (Ativan Inj) 0.5 mg Q8H PRN IV 12/26/16 18:30 01/25/17 18:29 Oxycodone HCl (Oxycontin Tab) 30 mg Q12 PO 12/26/16 21:00 01/09/17 20:59 12/27/16 08:03 30 MG Clonidine HCl 0.1 mg 0.1 mg Q6H PRN PO 12/27/16 00:45 01/26/17 00:44 12/27/16 01:30 0.1 MG Dextrose (D5W 1000ml) 1,000 ml @ 75 mls/hr [id number] IV 12/27/16 08:00 01/26/17 07:59 12/27/16 09:00 75 MLS/HR Insulin Aspart (novoLOG ASPART) SLIDING SCALE If C... ACHS SC 12/27/16 11:00 01/26/17 10:59 Glucose (Glucose 40% Gel) 15-30 GRAMS 15 GRAMS... UD PRN PO 12/27/16 08:15 01/26/17 08:14 Glucose (Glucose Chew Tab) 4-8 Tablets 4 Tabl... UD PRN PO 12/27/16 08:15 01/26/17 08:14 Dextrose (Dextrose 50% 50ML Syringe) 25-50ML OF 50% DW IV FOR... UD PRN IV 12/27/16 08:15 01/26/17 08:14 Glucagon (Glucagon Inj) 1 mg UD PRN SQ 12/27/16 08:15 01/26/17 08:14 Objective Vital Signs Date Time Temp Pulse Resp B/P Pulse Ox O2 Delivery O2 Flow Rate FiO2 12/27/16 08:00 36.7 78 14 126/100 92 Room Air 12/27/16 08:00 94 Room Air 12/27/16 04:07 36.8 73 18 145/87 94 Room Air 12/27/16 04:00 Room Air 12/27/16 00:07 36.5 66 18 189/105 96 Room Air 12/26/16 23:59 Room Air 12/26/16 20:00 Room Air 12/26/16 19:36 143/90 12/26/16 19:16 36.7 74 20 208/110 96 Room Air 12/26/16 18:56 74 16 93/40 97 Room Air 12/26/16 18:40 74 16 184/96 96 Room Air 12/26/16 17:12 77 12/26/16 16:52 74 18 172/96 97 Room Air 12/26/16 15:50 76 20 162/88 97 Room Air 12/26/16 14:45 36.6 123 20 161/80 95 Room Air Physical Exam General Appearance: no apparent distress Respiratory/Chest: chest non-tender, lungs clear, normal breath sounds, no respiratory distress, no accessory muscle use Cardiovascular: regular rate, rhythm, no edema, no murmur Abdomen: normal bowel sounds, non tender, soft Extremities: + pertinent finding (decreased, painful ROM of b/l shoulders, worse on R) Neurologic/Psychiatric: alert, + depressed affect, + pertinent finding (+ anxious affect) Skin: normal color Laboratory Results Last 24 Hours Test 12/26/16 15:46 12/26/16 17:00 12/26/16 17:05 12/26/16 17:48 White Blood Count 3.29 K/uL Red Blood Count 4.42 M/uL Hemoglobin 14.4 g/dL Hematocrit 40.8 % Mean Corpuscular Volume 92.3 fL Mean Corpuscular Hemoglobin 32.6 pg Mean Corpuscular Hemoglobin Concent 35.3 g/dl Platelet Count 187 K/uL Mean Platelet Volume 8.7 fL Neutrophils (%) (Auto) 54.4 % Lymphocytes (%) (Auto) 28.6 % Monocytes (%) (Auto) 13.7 % Eosinophils (%) (Auto) 2.1 % Basophils (%) (Auto) 0.3 % Neutrophils # (Auto) 1.79 K/uL Lymphocytes # (Auto) 0.94 K/uL Monocytes # (Auto) 0.45 K/uL Eosinophils # (Auto) 0.07 K/uL Basophils # (Auto) 0.01 K/uL RDW Standard Deviation 42.1 fL RDW Coefficient of Variation 12.4 % Immature Granulocyte % (Auto) 0.9 % Immature Granulocyte # (Auto) 0.03 K/uL Sodium Level 120 mmol/L Potassium Level mmol/L 3.7 mmol/L Chloride Level 82 mmol/L Carbon Dioxide Level 31 mmol/L Anion Gap 7.0 mmol/L Blood Urea Nitrogen 20 mg/dl Creatinine 1.20 mg/dl Estimated GFR () 51.6 Estimated GFR (Non- 44.5 BUN/Creatinine Ratio 16.5 Random Glucose 116 mg/dl Calcium Level 8.6 mg/dl Magnesium Level mg/dl 1.4 mg/dl Total Bilirubin 0.7 mg/dl Direct Bilirubin mg/dl 0.3 mg/dl Aspartate Amino Transf (AST/SGOT) U/L 18 U/L Alanine Aminotransferase (ALT/SGPT) 27 U/L Alkaline Phosphatase 53 U/L Total Creatine Kinase U/L 74 U/L Creatine Kinase MB 4.0 ng/ml Creatine Kinase MB Ratio Troponin I < 0.015 ng/ml Total Protein 7.0 gm/dl Albumin 3.5 gm/dl Lipase 160 U/L Urine Color YELLOW Urine Appearance CLEAR Urine pH 6.5 Urine Specific [place] 1.006 Urine Protein NEG Urine Glucose (UA) NEG Urine Ketones NEG Urine Occult Blood TRACE Urine Nitrite NEG Urine Bilirubin NEG Urine Urobilinogen NEG Urine Leukocyte Esterase TRACE Urine WBC (Auto) 1-5 /hpf Urine RBC (Auto) 0-4 /hpf Urine Hyaline Casts (Auto) 1-5 /lpf Urine Epithelial Cells (Auto) >30 /lpf Urine Bacteria (Auto) NEG Urine Osmolality 123 mOms/kg Prothrombin Time 10.8 SECONDS Prothromb Time International Ratio 1.0 Activated Partial Thromboplast Time 28.7 SECONDS Partial Thromboplastin Ratio 1.1 Test 12/26/16 19:47 12/26/16 21:20 12/27/16 06:25 Sodium Level 127 mmol/L 132 mmol/L Osmolality 260 mOsm/kg Hemoglobin 13.5 g/dL 14.2 g/dL Hematocrit 38.2 % 41.0 % White Blood Count 2.87 K/uL Red Blood Count 4.41 M/uL Mean Corpuscular Volume 93.0 fL Mean Corpuscular Hemoglobin 32.2 pg Mean Corpuscular Hemoglobin Concent 34.6 g/dl RDW Standard Deviation 43.0 fL RDW Coefficient of Variation 12.6 % Platelet Count 171 K/uL Mean Platelet Volume 8.9 fL Potassium Level 3.8 mmol/L Chloride Level 92 mmol/L Carbon Dioxide Level 33 mmol/L Anion Gap 7.0 mmol/L Blood Urea Nitrogen 15 mg/dl Creatinine 0.92 mg/dl Est Creatinine Clear Calc Drug Dose 48.0 ml/min Estimated GFR () 71.1 Estimated GFR (Non- 61.3 BUN/Creatinine Ratio 16.6 Random Glucose 92 mg/dl Calcium Level 8.9 mg/dl Magnesium Level 2.3 mg/dl Assessment and Plan This is a 76 year old extremely anxious female with a PMH of DM2, HTN, hypothyroidism, CKD stage 3, PMR presents with abdominal pain, diarrhea/nausea, found to have hyponatremia Hypovolemic Hyponatremia Na on admission = 120 was given 1L of fluid in the ER, and then NS @ 80mL/hr, which was stopped last evening concern for overcorrection as Na today is 132 will give D5 at a low rate, recheck BMP at 1300 Diarrhea, possible Overflow secondary to Constipation 12/27 currently on clears, no diarrhea overnight, no vomiting either +nausea, Zofran PRN IV PPI BID for now GI consultation pending Gallbladder U/S = no cholecystitis 12/26 c/o fevers/chills, nausea/vomiting as well Possibly overflow diarrhea, as abdominal CT shows fecal content at this point, we can add IVFs due to significant dehydration Zofran PRN we can continue clears for now GI evaluation; possible EGD? to note: patient has had a gastric ulcer in the past, managed with Prilosec; repeat EGD was pending for 12/24 but she could not make it Protonix BID due to possible coffee ground emesis? H/H stable, monitor Hypomagnesemia - resolved secondary to diarrhea DM2 fairly well controlled at home, with A1c < 7% sliding scale HTN given dose of clonidine this morning continue Lisinopril, monitor CKD stage 3 creat = 1.2, around baseline avoid nephrotoxic agents when able IVFs PMR continue prednisone DVT ppx SCDs, possible GI bleed? [facility]
[2016-12-27] MEDS: INSULIN ASPART 100 UNITS/ML 3 ML PEN SC SCH ×3 (11:00→21:00)
[2016-12-27 13:31] LABS: BUN/CREATININE RATIO 14.9 (10-20); CALCIUM 8.4 mg/dl (8.5-10.1); POTASSIUM 3.6 mmol/L (3.5-5.1)
[2016-12-27] MEDS ORDERED: LISINOPRIL 10 MG TAB PO ONE (18:29)
--- NOTE | 2016-12-27 20:28 | GASTROINTESTINAL CONSULTATION ---
DATE OF CONSULTATION: 12/27/2016 REFERRED BY: Dr. Cardona. HISTORY OF PRESENT ILLNESS: I was asked by Dr. Cardona to consult on this patient because of abdominal pain and nausea. The patient is a 76-year-old who has had a long history of issues with hiatal hernia. She had an endoscopy last year by Dr. Keene, there was a hiatal hernia noted. She was scheduled to have another upper endoscopy this week, but she did not come to her appointment. She also has a lot of anxiety issues. Her biggest complaint is postprandial nausea, gas, and bloating. When I came into the patient's room, she was eating and it appeared to be going down okay. She is slightly tangential as far as her history and interview was concerned and difficult to keep on track with the interview. She denies any weight loss. She had a colonoscopy several years ago. Numerous imaging studies are consistent with large hiatal hernia. She denies any bleeding. She also has some constipation issues. She typically takes MiraLax and stool softeners for this. PAST MEDICAL HISTORY: I reviewed her medical records and past medical history and her past medical history is significant for chronic kidney disease, depression, diabetes, diabetic neuropathy, dyslipidemia, hypertension, hypothyroidism, iron deficiency, osteoarthritis, rectal prolapse, rectocele. FAMILY HISTORY: She denies any family history of gastrointestinal disease. SOCIAL HISTORY: Not significant for smoking or drinking. OUTPATIENT MEDICATIONS: Include Cymbalta, iron, Lasix, Synthroid, Prinivil, Prilosec, oxycodone, MiraLax, prednisone, stool softeners, Zocor, Effexor. ALLERGIES: SHE IS ALLERGIC TO GABAPENTIN AND PREGABALIN. REVIEW OF SYSTEMS: As above, otherwise she denies any fevers, denies any rectal bleeding. She has had no change in vision or hearing. She denies any palpitations or productive cough. She denies any nighttime sweats. She denies any joint swelling. She has had no seizures. She states that her nerves have been bothering her, but she denies any depression. She has had no icterus or jaundice. She denies any dysuria. PHYSICAL EXAMINATION: GENERAL: Reveals a woman in bed who is eating upon arrival, in no distress. VITAL SIGNS: Most recent temperature is 36.7, blood pressure was 172/100, pulse is 81. SKIN: Anicteric. HEENT: Eyes show anicteric sclerae. Mouth is clear of lesions. NECK: Supple. CHEST: Has some scattered rhonchi, but is otherwise clear. HEART: Regular. ABDOMEN: Soft, good bowel sounds. There is no organomegaly, masses, rebound tenderness. EXTREMITIES: Warm with fair distal pulses. NEUROLOGIC: She is alert and oriented x3 but tangential in her interview. LABORATORIES: Reveal normal hemoglobin that is stable, normal liver enzymes and imaging is consistent with large hiatal hernia. IMPRESSION: A 76-year-old woman with symptoms most likely related to a hiatal hernia. I do not think an upper endoscopy would be helpful at this point. I would recommend she stay on a proton pump inhibitor indefinitely because she is certainly going to be at risk for reflux because of the hiatal hernia. I would recommend a grazing pattern to her diet with small more frequent meals instead of large meals, almost like a gastroparesis diet. If any further imaging is needed an upper GI series would be the best test. [facility]
[2016-12-27] MEDS: LATANOPROST 0.005% OP SOLN 2.5 ML BTL OPB SCH (21:09)
[2016-12-27] MEDS: LORATADINE 10 MG TAB PO SCH (21:09)
[2016-12-27] MEDS: SIMVASTATIN 20 MG TAB PO SCH (21:11)
[2016-12-28] MEDS: CLONIDINE HCL 0.1 MG TAB PO PRN (02:32)
[2016-12-28 02:35] VITALS: BP 182/98; PULSE 64; TEMP 36.6; O2SAT 90
[2016-12-28 05:24] VITALS: BP 174/92; O2SAT 94
[2016-12-28 05:53] LABS: HEMATOCRIT 39.3 % (37-47); MEAN CELL VOLUME 93.8 fL (80-100); MEAN CORPUSCULAR HEMOGLOBIN 32.5 pg (25-34); MEAN CORPUSCULAR HGB CONC 34.6 g/dl (32-36); MEAN PLATELET VOLUME 8.4 fL (7.4-10.4); PLATELET COUNT 157 K/uL (130-400); RED BLOOD COUNT 4.19 M/uL (4.2-5.4); WHITE BLOOD COUNT 2.96 K/uL (4.8-10.8)
[2016-12-28 06:21] LABS: BUN/CREATININE RATIO 14.8 (10-20); CALCIUM 8.5 mg/dl (8.5-10.1); CREATININE 0.77 mg/dl (0.60-1.20); MAGNESIUM 1.7 mg/dl (1.8-2.4); POTASSIUM 3.7 mmol/L (3.5-5.1)
[2016-12-28] MEDS: LEVOTHYROXINE 75 MCG TAB PO SCH (06:33)
[2016-12-28 07:20] VITALS: BP 192/101; PULSE 64; TEMP 36.5; O2SAT 97
[2016-12-28] MEDS ORDERED: MAGNESIUM SULFATE 1GM / D5W 1 GM in PREMIXED IN D5W 100 ML IV ONE (07:45)
[2016-12-28] MEDS: DOCUSATE SODIUM 100 MG CAP PO SCH ×2 (07:57→20:56)
[2016-12-28] MEDS: DULOXETINE (CYMBALTA) 30 MG CAP PO SCH (07:57)
[2016-12-28] MEDS: VENLAFAXINE HCL XR 150 MG CAPXR PO SCH (07:57)
[2016-12-28] MEDS: TOCOPHERYL, DL-ALPHA 400 INTER.UNIT CAP PO SCH (07:58)
[2016-12-28] MEDS: ASCORBIC ACID 500 MG TAB PO SCH (07:58)
[2016-12-28] MEDS: POLYETHYLENE (MIRALAX) 17 GM PACK PO SCH (07:59)
[2016-12-28] MEDS: LISINOPRIL 40 MG TAB PO SCH (07:59)
[2016-12-28] MEDS: PANTOprazole INJ 40 MG in SYRINGE 0 ML IV SCH ×2 (07:59→20:55)
[2016-12-28] MEDS: FERROUS SULFATE 325 MG TAB PO SCH ×2 (07:59→15:11)
[2016-12-28] MEDS: DORZOLAMIDE/TIMOLOL 22.3/6.8MG/ML 10 ML BTL OP SCH ×2 (08:00→20:54)
[2016-12-28] MEDS: OXYCODONE HCL 15 MG TABCR (OXYCONTIN) PO SCH ×2 (08:03→20:56)
[2016-12-28] MEDS: INSULIN ASPART 100 UNITS/ML 3 ML PEN SC SCH ×4 (08:06→20:59)
[2016-12-28] MEDS: CEROVITE ADV FORMULA TAB PO SCH (08:13)
[2016-12-28 10:15] VITALS: BP 128/80; PULSE 86
[2016-12-28] MEDS ORDERED: BISACODYL 5 MG TABEC PO PRN (11:15)
[2016-12-28] MEDS ORDERED: BISACODYL 5 MG TABEC PO ONE (11:15)
[2016-12-28] MEDS: SENNA 8.6 MG TAB PO SCH (12:11)
[2016-12-28] MEDS ORDERED: RANITIDINE HCL 150 MG TAB PO ONE (12:15)
--- NOTE | 2016-12-28 13:19 | Progress Note ---
Subjective Date of Service: December 28, 2016. Subjective Pt evaluation today including: conversation w/ patient, conversation w/ family , physical exam, lab review, review of studies, review of inpatient medication list Saw/examined the patient in room 405 She's seated in a chair Tolerated some clear liquid still c/o esophageal pain, excessive burping no diarrhea, no vomiting +nausea Problem List Medical Problems: (1) Acute kidney injury Status: Acute (2) Constipation Status: Acute (3) Hypomagnesemia Status: Acute (4) Non-STEMI (non-ST elevated myocardial infarction) Status: Acute (5) Weakness Status: Acute Review of Systems Constitutional: No chills, No fever, No weakness ENT: + trouble swallowing Cardiac: No chest pain Abdomen: + constipation, + nausea, No GI bleeding, No diarrhea, No pain, No vomiting Psychiatric: + anxiety Medications Current Inpatient Medications Medications (Trade) Dose Ordered Sig/Fab Route Start Time Stop Time Status Last Admin Dose Admin Acetaminophen (Tylenol Tab) 650 mg Q4H PRN PO 12/26/16 18:00 01/25/17 17:59 Ondansetron HCl 4 mg 4 mg Q6H PRN IV 12/26/16 18:00 01/25/17 17:59 Pantoprazole Sodium/Syringe (Protonix Inj/ Syringe) 10 ml @ 5 mls/min DAILY@, IV 12/26/16 20:00 01/25/17 19:59 12/28/16 07:59 5 MLS/MIN Ascorbic Acid (Vitamin C Tab) 500 mg QAM PO 12/27/16 09:00 01/26/17 08:59 12/28/16 07:58 500 MG Baclofen (Lioresal Tab) 10 mg TID PRN PO 12/26/16 18:15 01/25/17 18:14 Dorzolamide/ Timolol (Cosopt Op Soln) 1 drops BID OP 12/26/16 21:00 01/25/17 20:59 12/28/16 08:00 1 DROPS Duloxetine HCl (Cymbalta Cap) 30 mg QAM PO 12/27/16 09:00 01/26/17 08:59 12/28/16 07:57 30 MG Latanoprost (Xalatan Oph Soln) 1 drops HS OPB 12/26/16 21:00 01/25/17 20:59 12/27/16 21:09 1 DROPS Levothyroxine Sodium (Synthroid Tab) 75 mcg DAILYBB PO 12/27/16 06:00 01/26/17 05:59 12/28/16 06:33 75 MCG Loratadine (Claritin Tab) 10 mg HS PO 12/26/16 21:00 01/25/17 20:59 12/27/16 21:09 10 MG Meclizine HCl (Antivert Tab) 25 mg TID PRN PO 12/26/16 18:15 01/25/17 18:14 Multivitamins/ Minerals (Multivitamin W/ Minerals Tab) 1 tab DAILY PO 12/27/16 09:00 01/26/17 08:59 12/28/16 08:13 1 TAB Prednisone (PredniSONE TAB) 5 mg QAM PO 12/27/16 09:00 01/26/17 08:59 12/28/16 07:58 5 MG Simvastatin (Zocor Tab) 20 mg HS PO 12/26/16 21:00 01/25/17 20:59 12/27/16 21:11 20 MG Venlafaxine HCl (effeXOR EXTENDED REL CAP) 150 mg QAM PO 12/27/16 09:00 01/26/17 08:59 12/28/16 07:57 150 MG ow-Hqsdf-Mmuthofcgz Acetate (Vitamin E Cap) 400 interunit QAM PO 12/27/16 09:00 01/26/17 08:59 12/28/16 07:58 400 INTERUNIT Ferrous Sulfate (Feosol Tab) 325 mg BIDM PO 12/27/16 07:30 01/26/17 07:29 12/28/16 07:59 325 MG Polyethylene (Miralax Powder Packet) 17 gm DAILY PO 12/27/16 09:00 01/26/17 08:59 12/28/16 07:59 17 GM Docusate Sodium (coLACE CAP) 100 mg BID PO 12/26/16 21:00 01/25/17 20:59 12/28/16 07:57 100 MG Lorazepam (Ativan Inj) 0.5 mg Q8H PRN IV 12/26/16 18:30 01/25/17 18:29 Oxycodone HCl (Oxycontin Tab) 30 mg Q12 PO 12/26/16 21:00 01/09/17 20:59 12/28/16 08:03 30 MG Clonidine HCl (Catapres Tab) 0.1 mg Q6H PRN PO 12/27/16 00:45 01/26/17 00:44 12/28/16 02:32 0.1 MG Insulin Aspart (novoLOG ASPART) SLIDING SCALE If C... ACHS SC 12/27/16 11:00 01/26/17 10:59 Glucose (Glucose 40% Gel) 15-30 GRAMS 15 GRAMS... UD PRN PO 12/27/16 08:15 01/26/17 08:14 Glucose (Glucose Chew Tab) 4-8 Tablets 4 Tabl... UD PRN PO 12/27/16 08:15 01/26/17 08:14 Dextrose (Dextrose 50% 50ML Syringe) 25-50ML OF 50% DW IV FOR... UD PRN IV 12/27/16 08:15 01/26/17 08:14 Glucagon (Glucagon Inj) 1 mg UD PRN SQ 12/27/16 08:15 01/26/17 08:14 Lisinopril (Zestril Tab) 40 mg QAM PO 12/28/16 08:00 01/27/17 07:59 12/28/16 07:59 40 MG Bisacodyl (Dulcolax Tab) 5 mg BID PRN PO 12/28/16 11:15 01/27/17 11:14 Senna (Senokot Tab) 8.6 mg QAM PO 12/28/16 12:00 01/27/17 11:59 12/28/16 12:11 8.6 MG Ranitidine HCl (zANTac TAB) 150 mg QAM PO 12/29/16 08:00 01/28/17 07:59 Objective Vital Signs Date Time Temp Pulse Resp B/P Pulse Ox O2 Delivery O2 Flow Rate FiO2 12/28/16 10:15 86 128/80 12/28/16 07:20 36.5 64 18 192/101 97 Room Air 12/28/16 05:24 174/92 94 12/28/16 02:35 36.6 64 18 182/98 90 Room Air 12/27/16 23:59 Room Air 12/27/16 20:00 Room Air 12/27/16 19:05 177/97 12/27/16 18:00 Room Air 12/27/16 17:11 184/124 12/27/16 16:01 172/100 12/27/16 15:30 36.7 81 22 94 12/27/16 15:20 36.4 66 20 191/111 95 Physical Exam General Appearance: no apparent distress Respiratory/Chest: lungs clear, normal breath sounds, no respiratory distress, no accessory muscle use Cardiovascular: regular rate, rhythm, no edema, no murmur Abdomen: normal bowel sounds, non tender, soft Extremities: normal inspection, no pedal edema Neurologic/Psychiatric: + pertinent finding (+anxiety) Laboratory Results Last 24 Hours Test 12/27/16 17:11 12/27/16 19:59 12/28/16 05:10 12/28/16 07:28 Bedside Glucose 106 mg/dl 93 mg/dl 84 mg/dl White Blood Count 2.96 K/uL Red Blood Count 4.19 M/uL Hemoglobin 13.6 g/dL Hematocrit 39.3 % Mean Corpuscular Volume 93.8 fL Mean Corpuscular Hemoglobin 32.5 pg Mean Corpuscular Hemoglobin Concent 34.6 g/dl RDW Standard Deviation 42.8 fL RDW Coefficient of Variation 12.5 % Platelet Count 157 K/uL Mean Platelet Volume 8.4 fL Sodium Level 135 mmol/L Potassium Level 3.7 mmol/L Chloride Level 95 mmol/L Carbon Dioxide Level 37 mmol/L Anion Gap 3.0 mmol/L Blood Urea Nitrogen 11 mg/dl Creatinine 0.77 mg/dl Est Creatinine Clear Calc Drug Dose 57.3 ml/min Estimated GFR () 88.2 Estimated GFR (Non- 76.1 BUN/Creatinine Ratio 14.8 Random Glucose 72 mg/dl Calcium Level 8.5 mg/dl Magnesium Level 1.7 mg/dl Test 12/28/16 11:10 Bedside Glucose 206 mg/dl Assessment and Plan This is a 76 year old extremely anxious female with a PMH of DM2, HTN, hypothyroidism, CKD stage 3, PMR presents with abdominal pain, diarrhea/nausea, found to have hyponatremia Hypovolemic Hyponatremia 12/28 Na = 135 ~corrected at about 8/day no fluids necessary advanced to full liquids 12/27 Na on admission = 120 was given 1L of fluid in the ER, and then NS @ 80mL/hr, which was stopped last evening concern for overcorrection as Na today is 132 will give D5 at a low rate, recheck BMP at 1300 Diarrhea, possible Overflow secondary to Constipation 12/28 constipation will add Dulcolax, Senna, Colace Miralax can also add Milk of Mag if no bowel movement later today 12/27 currently on clears, no diarrhea overnight, no vomiting either +nausea, Zofran PRN IV PPI BID for now GI consultation pending Gallbladder U/S = no cholecystitis 12/26 c/o fevers/chills, nausea/vomiting as well Possibly overflow diarrhea, as abdominal CT shows fecal content at this point, we can add IVFs due to significant dehydration Zofran PRN we can continue clears for now GI evaluation; possible EGD? to note: patient has had a gastric ulcer in the past, managed with Prilosec; repeat EGD was pending for 12/24 but she could not make it Protonix BID due to possible coffee ground emesis? H/H stable, monitor Hiatal Hernia/GERD Protonix BID will add Zantac switch PPI to PO on 12/29 Hypomagnesemia - resolved secondary to diarrhea DM2 fairly well controlled at home, with A1c < 7% sliding scale HTN given dose of clonidine this morning Lisinopril increased to 40mg daily CKD stage 3 creat = 1.2, around baseline avoid nephrotoxic agents when able IVFs PMR continue prednisone DVT ppx SCDs, possible GI bleed? FULL, NO MECH VENT
[2016-12-28 14:42] VITALS: BP 132/73; PULSE 70; TEMP 36.5; O2SAT 96
[2016-12-28] MEDS ORDERED: MAGNESIUM HYDROXIDE SUSP 30 ML UDC PO ONE (14:45)
[2016-12-28] MEDS ORDERED: NURSING VERBAL MED ORDER ONE (15:15)
[2016-12-28] MEDS: LATANOPROST 0.005% OP SOLN 2.5 ML BTL OPB SCH (20:54)
[2016-12-28] MEDS: LORATADINE 10 MG TAB PO SCH (20:55)
[2016-12-28] MEDS: SIMVASTATIN 20 MG TAB PO SCH (20:57)
[2016-12-29 00:11] VITALS: BP 203/95; PULSE 77; TEMP 36.8; O2SAT 92
[2016-12-29] MEDS ORDERED: CLONIDINE HCL 0.1 MG TAB PO PRN (01:15)
[2016-12-29 03:24] VITALS: BP 160/76; PULSE 68
[2016-12-29] MEDS: LEVOTHYROXINE 75 MCG TAB PO SCH (06:32)
[2016-12-29 06:33] LABS: BUN/CREATININE RATIO 14.4 (10-20); CALCIUM 8.6 mg/dl (8.5-10.1); CREATININE 0.92 mg/dl (0.60-1.20); MAGNESIUM 2.1 mg/dl (1.8-2.4); POTASSIUM 4.1 mmol/L (3.5-5.1)
[2016-12-29] MEDS: DOCUSATE SODIUM 100 MG CAP PO SCH ×2 (08:08→21:01)
[2016-12-29] MEDS: CEROVITE ADV FORMULA TAB PO SCH (08:09)
[2016-12-29] MEDS: VENLAFAXINE HCL XR 150 MG CAPXR PO SCH (08:09)
[2016-12-29] MEDS: LISINOPRIL 40 MG TAB PO SCH (08:10)
[2016-12-29] MEDS: DULOXETINE (CYMBALTA) 30 MG CAP PO SCH (08:10)
[2016-12-29] MEDS: TOCOPHERYL, DL-ALPHA 400 INTER.UNIT CAP PO SCH (08:10)
[2016-12-29] MEDS: RANITIDINE HCL 150 MG TAB PO SCH (08:10)
[2016-12-29] MEDS: SENNA 8.6 MG TAB PO SCH (08:10)
[2016-12-29] MEDS: ASCORBIC ACID 500 MG TAB PO SCH (08:11)
[2016-12-29] MEDS: POLYETHYLENE (MIRALAX) 17 GM PACK PO SCH (08:11)
[2016-12-29] MEDS: PANTOprazole INJ 40 MG in SYRINGE 0 ML IV SCH ×2 (08:12→21:01)
[2016-12-29] MEDS: DORZOLAMIDE/TIMOLOL 22.3/6.8MG/ML 10 ML BTL OP SCH ×2 (08:13→21:00)
[2016-12-29] MEDS: OXYCODONE HCL 15 MG TABCR (OXYCONTIN) PO SCH ×2 (08:16→21:01)
[2016-12-29 08:34] VITALS: BP 153/86; PULSE 76; TEMP 36.6; O2SAT 99
[2016-12-29] MEDS: INSULIN ASPART 100 UNITS/ML 3 ML PEN SC SCH ×4 (09:03→21:00)
[2016-12-29] MEDS ORDERED: NURSING VERBAL MED ORDER ONE (14:00)
[2016-12-29] MEDS ORDERED: MAGNESIUM HYDROXIDE SUSP 30 ML UDC PO ONE (14:30)
[2016-12-29] MEDS ORDERED: BISACODYL 10 MG SUPP PR ONE (14:30)
[2016-12-29] MEDS ORDERED: MINERAL OIL ENEMA 133 ML BTL PR PRN (15:00)
--- NOTE | 2016-12-29 15:00 | Progress Note ---
Subjective Date of Service: December 29, 2016. Subjective Pt evaluation today including: conversation w/ patient, physical exam, lab review, review of studies, review of inpatient medication list Saw/examined the patient in room 405 She is sitting at bedside commode, no bowel movement yet No nausea/vomiting, no problems with swallowing No diarrhea or GI bleed Problem List Medical Problems: (1) Acute kidney injury Status: Acute (2) Constipation Status: Acute (3) Hypomagnesemia Status: Acute (4) Non-STEMI (non-ST elevated myocardial infarction) Status: Acute (5) Weakness Status: Acute Review of Systems Constitutional: + weakness, No chills, No fever Respiratory: No shortness of breath Cardiac: No chest pain Abdomen: + constipation, No GI bleeding, No diarrhea, No nausea, No pain, No vomiting Medications Current Inpatient Medications Medications (Trade) Dose Ordered Sig/Fab Route Start Time Stop Time Status Last Admin Dose Admin Acetaminophen (Tylenol Tab) 650 mg Q4H PRN PO 12/26/16 18:00 01/25/17 17:59 Ondansetron HCl 4 mg 4 mg Q6H PRN IV 12/26/16 18:00 01/25/17 17:59 Pantoprazole Sodium/Syringe (Protonix Inj/ Syringe) 10 ml @ 5 mls/min DAILY@ IV 12/26/16 20:00 01/25/17 19:59 12/29/16 08:12 5 MLS/MIN Ascorbic Acid (Vitamin C Tab) 500 mg QAM PO 12/27/16 09:00 01/26/17 08:59 12/29/16 08:11 500 MG Baclofen (Lioresal Tab) 10 mg TID PRN PO 12/26/16 18:15 01/25/17 18:14 Dorzolamide/ Timolol (Cosopt Op Soln) 1 drops BID OP 12/26/16 21:00 01/25/17 20:59 12/29/16 08:13 1 DROPS Duloxetine HCl (Cymbalta Cap) 30 mg QAM PO 12/27/16 09:00 01/26/17 08:59 12/29/16 08:10 30 MG Latanoprost (Xalatan Oph Soln) 1 drops HS OPB 12/26/16 21:00 01/25/17 20:59 12/28/16 20:54 1 DROPS Levothyroxine Sodium (Synthroid Tab) 75 mcg DAILYBB PO 12/27/16 06:00 01/26/17 05:59 12/29/16 06:32 75 MCG Loratadine (Claritin Tab) 10 mg HS PO 12/26/16 21:00 01/25/17 20:59 12/28/16 20:55 10 MG Meclizine HCl (Antivert Tab) 25 mg TID PRN PO 12/26/16 18:15 01/25/17 18:14 Multivitamins/ Minerals (Multivitamin W/ Minerals Tab) 1 tab DAILY PO 12/27/16 09:00 01/26/17 08:59 12/29/16 08:09 1 TAB Prednisone (PredniSONE TAB) 5 mg QAM PO 12/27/16 09:00 01/26/17 08:59 12/29/16 08:09 5 MG Simvastatin (Zocor Tab) 20 mg HS PO 12/26/16 21:00 01/25/17 20:59 12/28/16 20:57 20 MG Venlafaxine HCl (effeXOR EXTENDED REL CAP) 150 mg QAM PO 12/27/16 09:00 01/26/17 08:59 12/29/16 08:09 150 MG qr-[place] Acetate (Vitamin E Cap) 400 interunit QAM PO 12/27/16 09:00 01/26/17 08:59 12/29/16 08:10 400 INTERUNIT Ferrous Sulfate (Feosol Tab) 325 mg BIDM PO 12/27/16 07:30 01/26/17 07:29 Future Hold 12/28/16 07:59 325 MG Polyethylene (Miralax Powder Packet) 17 gm DAILY PO 12/27/16 09:00 01/26/17 08:59 12/29/16 08:11 17 GM Docusate Sodium (coLACE CAP) 100 mg BID PO 12/26/16 21:00 01/25/17 20:59 12/29/16 08:08 100 MG Lorazepam (Ativan Inj) 0.5 mg Q8H PRN IV 12/26/16 18:30 01/25/17 18:29 Oxycodone HCl (Oxycontin Tab) 30 mg Q12 PO 12/26/16 21:00 01/09/17 20:59 12/29/16 08:16 30 MG Insulin Aspart (novoLOG ASPART) SLIDING SCALE If C... ACHS SC 12/27/16 11:00 01/26/17 10:59 12/29/16 13:14 1 UNITS Glucose (Glucose 40% Gel) 15-30 GRAMS 15 GRAMS... UD PRN PO 12/27/16 08:15 01/26/17 08:14 Glucose (Glucose Chew Tab) 4-8 Tablets 4 Tabl... UD PRN PO 12/27/16 08:15 01/26/17 08:14 Dextrose (Dextrose 50% 50ML Syringe) 25-50ML OF 50% DW IV FOR... UD PRN IV 12/27/16 08:15 01/26/17 08:14 Glucagon (Glucagon Inj) 1 mg UD PRN SQ 12/27/16 08:15 01/26/17 08:14 Lisinopril (Zestril Tab) 40 mg QAM PO 12/28/16 08:00 01/27/17 07:59 12/29/16 08:10 40 MG Bisacodyl (Dulcolax Tab) 5 mg BID PRN PO 12/28/16 11:15 01/27/17 11:14 12/29/16 11:58 5 MG Senna (Senokot Tab) 8.6 mg QAM PO 12/28/16 12:00 01/27/17 11:59 12/29/16 08:10 8.6 MG Ranitidine HCl (zANTac TAB) 150 mg QAM PO 12/29/16 08:00 01/28/17 07:59 12/29/16 08:10 150 MG Clonidine HCl (Catapres Tab) 0.1 mg Q6H PRN PO 12/29/16 01:15 01/28/17 01:14 12/29/16 01:25 0.1 MG Objective Vital Signs Date Time Temp Pulse Resp B/P Pulse Ox O2 Delivery O2 Flow Rate FiO2 12/29/16 08:40 Room Air 12/29/16 08:34 36.6 76 18 153/86 99 Room Air 12/29/16 03:24 68 160/76 12/29/16 00:11 36.8 77 20 203/95 92 Room Air 12/28/16 23:59 Room Air 12/28/16 20:00 Room Air 12/28/16 16:22 Room Air Physical Exam General Appearance: no apparent distress Respiratory/Chest: no respiratory distress, no accessory muscle use Cardiovascular: regular rate, rhythm, no edema, no murmur Abdomen: normal bowel sounds, non tender, soft Laboratory Results Last 24 Hours Test 12/28/16 16:14 12/28/16 20:12 12/29/16 05:10 12/29/16 07:57 Bedside Glucose 80 mg/dl 95 mg/dl 88 mg/dl Sodium Level 133 mmol/L Potassium Level 4.1 mmol/L Chloride Level 94 mmol/L Carbon Dioxide Level 35 mmol/L Anion Gap 4.0 mmol/L Blood Urea Nitrogen 13 mg/dl Creatinine 0.92 mg/dl Est Creatinine Clear Calc Drug Dose 48.0 ml/min Estimated GFR () 71.1 Estimated GFR (Non- 61.3 BUN/Creatinine Ratio 14.4 Random Glucose 83 mg/dl Calcium Level 8.6 mg/dl Magnesium Level 2.1 mg/dl Test 12/29/16 11:45 Bedside Glucose 166 mg/dl Assessment and Plan This is a 76 year old extremely anxious female with a PMH of DM2, HTN, hypothyroidism, CKD stage 3, PMR presents with abdominal pain, diarrhea/nausea, found to have hyponatremia Hypovolemic Hyponatremia 12/29 Na = 133 12/28 Na = 135 ~corrected at about 8/day no fluids necessary advanced to full liquids 12/27 Na on admission = 120 was given 1L of fluid in the ER, and then NS @ 80mL/hr, which was stopped last evening concern for overcorrection as Na today is 132 will give D5 at a low rate, recheck BMP at 1300 Diarrhea, possible Overflow secondary to Constipation 12/29 miralax, colace, senna dulcolax suppository milk of mag will try mineral oil enema if that does not work 12/28 constipation will add Dulcolax, Senna, Colace Miralax can also add Milk of Mag if no bowel movement later today 12/27 currently on clears, no diarrhea overnight, no vomiting either +nausea, Zofran PRN IV PPI BID for now GI consultation pending Gallbladder U/S = no cholecystitis 12/26 c/o fevers/chills, nausea/vomiting as well Possibly overflow diarrhea, as abdominal CT shows fecal content at this point, we can add IVFs due to significant dehydration Zofran PRN we can continue clears for now GI evaluation; possible EGD? to note: patient has had a gastric ulcer in the past, managed with Prilosec; repeat EGD was pending for 12/24 but she could not make it Protonix BID due to possible coffee ground emesis? H/H stable, monitor Hiatal Hernia/GERD Protonix BID will add Zantac switch PPI to PO on 12/29 Hypomagnesemia - resolved secondary to diarrhea DM2 fairly well controlled at home, with A1c < 7% sliding scale HTN given dose of clonidine this morning Lisinopril increased to 40mg daily CKD stage 3 creat = 1.2, around baseline avoid nephrotoxic agents when able IVFs PMR continue prednisone DVT ppx SCDs, possible GI bleed? FULL, NO MECH VENT
[2016-12-29 17:09] VITALS: BP 147/81; PULSE 64; TEMP 36.6; O2SAT 94
[2016-12-29] MEDS: SIMVASTATIN 20 MG TAB PO SCH (21:01)
[2016-12-29] MEDS: LORATADINE 10 MG TAB PO SCH (21:01)
[2016-12-29] MEDS: LATANOPROST 0.005% OP SOLN 2.5 ML BTL OPB SCH (21:01)
[2016-12-30 00:16] VITALS: BP 173/75; PULSE 67; TEMP 36.7; O2SAT 94
[2016-12-30 05:42] LABS: HEMATOCRIT 40.4 % (37-47); MEAN CELL VOLUME 94.6 fL (80-100); MEAN CORPUSCULAR HEMOGLOBIN 31.1 pg (25-34); MEAN CORPUSCULAR HGB CONC 32.9 g/dl (32-36); MEAN PLATELET VOLUME 8.5 fL (7.4-10.4); PLATELET COUNT 138 K/uL (130-400); RED BLOOD COUNT 4.27 M/uL (4.2-5.4); WHITE BLOOD COUNT 3.54 K/uL (4.8-10.8)
[2016-12-30] MEDS: LEVOTHYROXINE 75 MCG TAB PO SCH (06:08)
[2016-12-30 06:16] LABS: BUN/CREATININE RATIO 15.7 (10-20); CALCIUM 8.7 mg/dl (8.5-10.1); CREATININE 0.92 mg/dl (0.60-1.20); POTASSIUM 4.5 mmol/L (3.5-5.1)
[2016-12-30 07:21] VITALS: BP 159/83; PULSE 65; TEMP 36.4; O2SAT 92
[2016-12-30] MEDS: PANTOprazole INJ 40 MG in SYRINGE 0 ML IV SCH (08:15)
[2016-12-30] MEDS: DOCUSATE SODIUM 100 MG CAP PO SCH (08:16)
[2016-12-30] MEDS: VENLAFAXINE HCL XR 150 MG CAPXR PO SCH (08:16)
[2016-12-30] MEDS: RANITIDINE HCL 150 MG TAB PO SCH (08:16)
[2016-12-30] MEDS: SENNA 8.6 MG TAB PO SCH (08:16)
[2016-12-30] MEDS: CEROVITE ADV FORMULA TAB PO SCH (08:16)
[2016-12-30] MEDS: DULOXETINE (CYMBALTA) 30 MG CAP PO SCH (08:17)
[2016-12-30] MEDS: DORZOLAMIDE/TIMOLOL 22.3/6.8MG/ML 10 ML BTL OP SCH (08:17)
[2016-12-30] MEDS: LISINOPRIL 40 MG TAB PO SCH (08:17)
[2016-12-30] MEDS: ASCORBIC ACID 500 MG TAB PO SCH (08:17)
[2016-12-30] MEDS: POLYETHYLENE (MIRALAX) 17 GM PACK PO SCH (08:18)
[2016-12-30] MEDS: INSULIN ASPART 100 UNITS/ML 3 ML PEN SC SCH ×2 (08:18→13:00)
[2016-12-30] MEDS: OXYCODONE HCL 15 MG TABCR (OXYCONTIN) PO SCH (08:22)
[2016-12-30] MEDS: TOCOPHERYL, DL-ALPHA 400 INTER.UNIT CAP PO SCH (08:22)
[2016-12-30 08:52] VITALS: BP 146/77; PULSE 80
[2016-12-30 12:00] VITALS: Ht 152.4 cm; Wt 73.4 kg
--- NOTE | 2016-12-30 13:49 | Progress Note ---
Subjective Date of Service: December 30, 2016. Subjective Pt evaluation today including: conversation w/ patient, physical exam, lab review, review of studies, review of inpatient medication list Saw/examined the patient in room 405 Tolerating full liquid and some soft foods Had BM x2 today still occasional reflux symptoms and burping, but improving Problem List Medical Problems: (1) Acute kidney injury Status: Acute (2) Constipation Status: Acute (3) Hypomagnesemia Status: Acute (4) Non-STEMI (non-ST elevated myocardial infarction) Status: Acute (5) Weakness Status: Acute Review of Systems Constitutional: No chills, No fever Respiratory: No shortness of breath Cardiac: No chest pain Abdomen: + problem reported (burping, reflux), No GI bleeding, No constipation , No diarrhea, No nausea, No pain, No vomiting Medications Current Inpatient Medications Medications (Trade) Dose Ordered Sig/Fab Route Start Time Stop Time Status Last Admin Dose Admin Acetaminophen (Tylenol Tab) 650 mg Q4H PRN PO 12/26/16 18:00 01/25/17 17:59 Ondansetron HCl 4 mg 4 mg Q6H PRN IV 12/26/16 18:00 01/25/17 17:59 Pantoprazole Sodium/Syringe (Protonix Inj/ Syringe) 10 ml @ 5 mls/min DAILY@, IV 12/26/16 20:00 01/25/17 19:59 12/30/16 08:15 5 MLS/MIN Ascorbic Acid (Vitamin C Tab) 500 mg QAM PO 12/27/16 09:00 01/26/17 08:59 12/30/16 08:17 500 MG Baclofen (Lioresal Tab) 10 mg TID PRN PO 12/26/16 18:15 01/25/17 18:14 Dorzolamide/ Timolol (Cosopt Op Soln) 1 drops BID OP 12/26/16 21:00 01/25/17 20:59 12/30/16 08:17 1 DROPS Duloxetine HCl (Cymbalta Cap) 30 mg QAM PO 12/27/16 09:00 01/26/17 08:59 12/30/16 08:17 30 MG Latanoprost (Xalatan Oph Soln) 1 drops HS OPB 12/26/16 21:00 01/25/17 20:59 12/29/16 21:01 1 DROPS Levothyroxine Sodium (Synthroid Tab) 75 mcg DAILYBB PO 12/27/16 06:00 01/26/17 05:59 12/30/16 06:08 75 MCG Loratadine (Claritin Tab) 10 mg HS PO 12/26/16 21:00 01/25/17 20:59 12/29/16 21:01 10 MG Meclizine HCl (Antivert Tab) 25 mg TID PRN PO 12/26/16 18:15 01/25/17 18:14 Multivitamins/ Minerals (Multivitamin W/ Minerals Tab) 1 tab DAILY PO 12/27/16 09:00 01/26/17 08:59 12/30/16 08:16 1 TAB Prednisone (PredniSONE TAB) 5 mg QAM PO 12/27/16 09:00 01/26/17 08:59 12/30/16 08:17 5 MG Simvastatin (Zocor Tab) 20 mg HS PO 12/26/16 21:00 01/25/17 20:59 12/29/16 21:01 20 MG Venlafaxine HCl (effeXOR EXTENDED REL CAP) 150 mg QAM PO 12/27/16 09:00 01/26/17 08:59 12/30/16 08:16 150 MG nq-Cyrtd-Gtscspkoko Acetate (Vitamin E Cap) 400 interunit QAM PO 12/27/16 09:00 01/26/17 08:59 12/30/16 08:22 400 INTERUNIT Ferrous Sulfate (Feosol Tab) 325 mg BIDM PO 12/27/16 07:30 01/26/17 07:29 Future Hold 12/28/16 07:59 325 MG Polyethylene (Miralax Powder Packet) 17 gm DAILY PO 12/27/16 09:00 01/26/17 08:59 12/30/16 08:18 17 GM Docusate Sodium (coLACE CAP) 100 mg BID PO 12/26/16 21:00 01/25/17 20:59 12/30/16 08:16 100 MG Lorazepam (Ativan Inj) 0.5 mg Q8H PRN IV 12/26/16 18:30 01/25/17 18:29 Oxycodone HCl (Oxycontin Tab) 30 mg Q12 PO 12/26/16 21:00 6/17 20:59 12/30/16 08:22 30 MG Insulin Aspart (novoLOG ASPART) SLIDING SCALE If C... ACHS SC 12/27/16 11:00 01/26/17 10:59 12/29/16 13:14 1 UNITS Glucose (Glucose 40% Gel) 15-30 GRAMS 15 GRAMS... UD PRN PO 12/27/16 08:15 01/26/17 08:14 Glucose (Glucose Chew Tab) 4-8 Tablets 4 Tabl... UD PRN PO 12/27/16 08:15 01/26/17 08:14 Dextrose (Dextrose 50% 50ML Syringe) 25-50ML OF 50% DW IV FOR... UD PRN IV 12/27/16 08:15 01/26/17 08:14 Glucagon (Glucagon Inj) 1 mg UD PRN SQ 12/27/16 08:15 01/26/17 08:14 Lisinopril (Zestril Tab) 40 mg QAM PO 12/28/16 08:00 01/27/17 07:59 12/30/16 08:17 40 MG Bisacodyl (Dulcolax Tab) 5 mg BID PRN PO 12/28/16 11:15 01/27/17 11:14 12/29/16 11:58 5 MG Senna (Senokot Tab) 8.6 mg QAM PO 12/28/16 12:00 01/27/17 11:59 12/30/16 08:16 8.6 MG Ranitidine HCl (zANTac TAB) 150 mg QAM PO 12/29/16 08:00 01/28/17 07:59 12/30/16 08:16 150 MG Clonidine HCl (Catapres Tab) 0.1 mg Q6H PRN PO 12/29/16 01:15 01/28/17 01:14 12/29/16 01:25 0.1 MG Mineral Oil (Fleet Oil Enema) 133 ml DAILY PRN MO 12/29/16 15:00 01/28/17 14:59 Objective Vital Signs Date Time Temp Pulse Resp B/P Pulse Ox O2 Delivery O2 Flow Rate FiO2 12/30/16 08:52 80 146/77 12/30/16 08:05 Room Air 12/30/16 07:21 36.4 65 18 159/83 92 Room Air 12/30/16 00:16 36.7 67 19 173/75 94 Room Air 12/30/16 00:00 Room Air 12/29/16 17:09 36.6 64 17 147/81 94 Room Air 12/29/16 16:00 Room Air Physical Exam General Appearance: no apparent distress Respiratory/Chest: lungs clear, normal breath sounds, no respiratory distress, no accessory muscle use Cardiovascular: regular rate, rhythm, no edema, no murmur Abdomen: normal bowel sounds, non tender, soft Laboratory Results Last 24 Hours Test 12/29/16 17:03 12/29/16 20:39 12/30/16 05:17 12/30/16 07:33 Bedside Glucose 99 mg/dl 79 mg/dl 68 mg/dl White Blood Count 3.54 K/uL Red Blood Count 4.27 M/uL Hemoglobin 13.3 g/dL Hematocrit 40.4 % Mean Corpuscular Volume 94.6 fL Mean Corpuscular Hemoglobin 31.1 pg Mean Corpuscular Hemoglobin Concent 32.9 g/dl RDW Standard Deviation 43.4 fL RDW Coefficient of Variation 12.6 % Platelet Count 138 K/uL Mean Platelet Volume 8.5 fL Sodium Level 134 mmol/L Potassium Level 4.5 mmol/L Chloride Level 94 mmol/L Carbon Dioxide Level 38 mmol/L Anion Gap 2.0 mmol/L Blood Urea Nitrogen 14 mg/dl Creatinine 0.92 mg/dl Est Creatinine Clear Calc Drug Dose 48.0 ml/min Estimated GFR () 71.1 Estimated GFR (Non- 61.3 BUN/Creatinine Ratio 15.7 Random Glucose 73 mg/dl Calcium Level 8.7 mg/dl Test 12/30/16 08:09 12/30/16 11:22 Bedside Glucose 73 mg/dl 153 mg/dl Assessment and Plan This is a 76 year old extremely anxious female with a PMH of DM2, HTN, hypothyroidism, CKD stage 3, PMR presents with abdominal pain, diarrhea/nausea, found to have hyponatremia Hypovolemic Hyponatremia 12/30 Na = 134 doing better, electrolytes stable, controlled 12/29 Na = 133 12/28 Na = 135 ~corrected at about 8/day no fluids necessary advanced to full liquids 12/27 Na on admission = 120 was given 1L of fluid in the ER, and then NS @ 80mL/hr, which was stopped last evening concern for overcorrection as Na today is 132 will give D5 at a low rate, recheck BMP at 1300 Diarrhea, possible Overflow secondary to Constipation 12/30 had a bowel movement today x2 doing better, no pain, no diarrhea, no nausea occasional burping episodes; tolerating full liquid 12/29 miralax, colace, senna dulcolax suppository milk of mag will try mineral oil enema if that does not work 12/28 constipation will add Dulcolax, Senna, Colace Miralax can also add Milk of Mag if no bowel movement later today 12/27 currently on clears, no diarrhea overnight, no vomiting either +nausea, Zofran PRN IV PPI BID for now GI consultation pending Gallbladder U/S = no cholecystitis 12/26 c/o fevers/chills, nausea/vomiting as well Possibly overflow diarrhea, as abdominal CT shows fecal content at this point, we can add IVFs due to significant dehydration Zofran PRN we can continue clears for now GI evaluation; possible EGD? to note: patient has had a gastric ulcer in the past, managed with Prilosec; repeat EGD was pending for 12/24 but she could not make it Protonix BID due to possible coffee ground emesis? H/H stable, monitor Hiatal Hernia/GERD Protonix BID will add Zantac switch PPI to PO on 12/29 Hypomagnesemia - resolved secondary to diarrhea DM2 fairly well controlled at home, with A1c < 7% sliding scale HTN given dose of clonidine this morning Lisinopril increased to 40mg daily CKD stage 3 creat = 1.2, around baseline avoid nephrotoxic agents when able IVFs PMR continue prednisone DVT ppx SCDs, possible GI bleed? FULL, NO MECH VENT
[2016-12-30] MEDS ORDERED: OMEP40CA41 PO (13:55)
[2016-12-30] MEDS ORDERED: ZNT150 PO (13:55)
[2016-12-30] MEDS ORDERED: SNK PO (13:55)
[2016-12-30] MEDS ORDERED: DLC5 PO (13:55)
[2016-12-30] MEDS ORDERED: LSN40 PO (13:55)
[2016-12-30] MEDS ORDERED: CLC100 PO (13:55)
--- NOTE | 2016-12-30 14:03 | Discharge Instructions ---
Discharge Instructions Date of Service December 30, 2016. Admission Reason for Admission: Hyponatremia Discharge Discharge Diagnosis / Problem: Hypovolemic Hyponatremia; GERD; constipation, overflow diarrhea Discharge Goals Goal(s): Decrease discomfort, Improve function, Diagnostic testing, Therapeutic intervention Activity Recommendations Activity Limitations: resume your previous activity . Instructions / Follow-Up Instructions / Follow-Up Please follow-up with Dr. Edwards (covering for Dr. Kline) on January 05 at 11:05AM * You will be discharged with Prilosec 40mg twice daily for reflux * Take Zantac 150mg daily for reflux as well * Your bowel regimen to prevent constipation includes Colace twice a daily, Dulcolax twice a day, and Senna daily * Your dose of Lisinopril is increased to 40mg daily for your blood pressure * PCP should check basic metabolic profile (blood work) for electrolytes; should also check blood pressure * You will be sent home with home health services - should receive physical therapy three times weekly * Outpatient GI follow-up routinely for a follow-up EGD regarding ulcer Current Hospital Diet Patient's current hospital diet: Regular Diet Discharge Diet Recommended Diet: Regular Diet Diet Texture: Mechanical Soft (ground) Pending Studies Studies pending at discharge: no Laboratory Results Hemoglobin A1c Test 11/26/16 05:20 Range/Units Estimated Average Glucose 148 mg/dl Hemoglobin A1c 6.8 H 4.5-5.6 % Lipid Panel Test 11/26/16 05:20 Range/Units Triglycerides Level 131 0-150 mg/dl Cholesterol Level 161 0-200 mg/dl HDL Cholesterol 55 mg/dl Cholesterol/HDL Ratio 2.9 LDL Cholesterol, Calculated 80 mg/dl Medical Emergencies . Who to Call and When: Medical Emergencies: If at any time you feel your situation is an emergency, please call 911 immediately. . Non-Emergent Contact Non-Emergency issues call your: Primary Care Provider, Super[employer] . . "Provider Documentation" section prepared by Porsha Mayorga. . VTE Core Measure Inpt VTE Proph given/why not?: SCD's
--- NOTE | 2016-12-30 14:06 | Discharge Summary ---
"Discharge Summary Date of Service December 30, 2016. Discharge Summary Admission Date: December 26, 2016 at 17:53 Discharge Date: December 30, 2016 Discharge Disposition: Home with services Principal Diagnosis: Hypovolemic Hyponatremia Overflow Diarrhea, Constipation Electrolyte Imbalance GERD Medication Reconciliation New Medications: Bisacodyl (Bisacodyl EC) 5 Mg Tabec 5 MG PO BID PRN for Constipation for 30 Days, #60 TAB Docusate Sodium (Docusate Sodium) 100 Mg Cap 100 MG PO BID for 30 Days, #60 CAP Ranitidine HCl (Ranitidine HCl) 150 Mg Tab 150 MG PO QAM for 30 Days, #30 TAB Senna (Senna Lax) 8.6 Mg Tab 8.6 MG PO QAM for 30 Days, #30 TAB Changed Medications: Lisinopril (Lisinopril) 40 Mg Tab 40 MG PO DAILY for 30 Days, #30 TABS (Changed from: Lisinopril (Prinivil) 20 Mg Tab 20 Mg PO QAM) Omeprazole (Prilosec) 40 Mg Cap 40 MG PO BID for 30 Days, #60 CAP (Changed from: QAM) Continued Medications: Acetaminophen (Acetaminophen) 325 Mg Tab 2 TAB PO QID PRN for Pain Ascorbic Acid (Vitamin C) 500 Mg Tab 1 TAB PO QAM Baclofen (Lioresal) 10 Mg Tab 10 MG PO TID PRN for Muscle Spasms Dorzolamide Hcl-Timolol Maleat (Cosopt Oph) 1 Chanelle Chanelle 1 DROPS OP BID Duloxetine HCl (Cymbalta) 30 Mg Cap 1 CAP PO QAM Ferrous Sulfate (Kp Ferrous Sulfate) 325 Mg Tab 1 TAB PO BID Fluocinolone Acetonide (Fluocinolone Acetonide) Unknown Strength Cre 1 APPLN TOP BID PRN for rash Fluticasone Propionate (Nasal) (Flonase Allergy Relief) 50 Mcg/Act Spr 1 SPRAY FELIPE QAM PRN for Nasal Congestion Furosemide (Lasix) 20 Mg Tab 20 MG PO QAM Glucosamine Sulfate (Glucosamine) 1,000 Mg Tab 1000 MG PO QAM Lactulose (Lactulose) 20 Gm/30 Ml Syrp 30 ML PO TID PRN for Constipation Latanoprost (Xalatan 0.005% Oph Chanelle) 0.005 % Chanelle 1 DROP OPB HS Levothyroxine Sodium (Synthroid) 75 Mcg Tab 75 MCG PO QAM Lidocaine Hcl (Mouth-Throat) (Lidocaine Hcl) 2 % Chanelle 2 TBS PO UD COAT MOUTH ULCERS Loratadine (Claritin) 10 Mg Tab 10 MG PO HS Magic Swizzle (Magic Swizzle - SUCRALFA/ALUM/MAG/DIPHEN/LIDO) 240 Ml Susp 3-4 TSP PO Q4-6H PRN for MOUTH ULCERS 100ml Sucralfate 50ml Maalox 50ml Diphenhydramine 40ml 2% Aq. Lidocaine Swish and Swallow Meclizine Hcl (Meclizine Hcl) 25 Mg Tab 1 TAB PO TID PRN for VERIGO/DIZZINESS Multivitamins/Minerals (Mvi With Minerals) Tab 1 TAB PO DAILY, TAB Nystatin (Topical) (Nystatin) 1 Pow Pow 1 APPL TOP UD PRN for RASH Nystatin/Triamcinolone (Mycolog ||) Cr 1 APPL TOP UD PRN for rash Oxycodone HCl (Oxycodone HCl ER) 30 Mg Tab 30 MG PO Q12 Polyethylene Glycol 3350 (Miralax) 1 Pow Pow 17 GM PO DAILY Prednisone (Prednisone) 5 Mg Tab 5 MG PO QAM Sennosides-Docusate Sodium (Stool Softener) 1 Tab Tab 1 TAB PO QAM Simethicone (Gas-X) 80 Mg Chw 80 MG PO QID PRN for GAS Simvastatin (Zocor) 20 Mg Tab 20 MG PO HS Venlafaxine Hcl (Effexor Extended Rel) 150 Mg Cap 150 MG PO QAM Vitamin E (E-400) 400 Unit Cap 1 TAB PO QAM Admission Information HPI (per Admitting provider): 76 year old female who presents to the ER with nausea, vomiting, and weakness. Patient was recently admitted to [facility] 12/05 - 12/08 for dizziness felt to be due to BPPV and also UTI. Patient had been doing well since her discharge. However over the past couple of days she developed nausea and vomiting. Patient reports about 5 episodes of vomiting in this time period. She denies hematemesis however reports it may have looked like coffee grounds at some point. Daughter is at the bedside and reports she has had a few episodes of diarrhea as well. She reports the first time was very dark however the rest were brown. She denies BRBPR. Patient reports one episode of epigastric pain that radiated around to the right and to the back. That has since resolved. She reports difficulty swallowing at times and feels as though things get stuck in her chest. She denies fever and chills. No chest pain, shortness of breath, lightheadedness, dizziness, diaphoresis, or syncopal events. Today she felt generally weak. She denies urinary symptoms. In the ER, patient's Na+ is 120. CT abd/pelvis is negative for acute findings. She was given IVF and Zofran. Physical Exam (per Admitting): General Appearance: no apparent distress Head: normocephalic Eyes: normal inspection ENT: hearing grossly normal Neck: supple, no JVD Respiratory/Chest: lungs clear, normal breath sounds, no respiratory distress Cardiovascular: regular rate, rhythm, no edema, normal peripheral pulses Abdomen/GI: normal bowel sounds, non tender, soft Extremities/Musculoskelatal: normal inspection, no calf tenderness Neurologic/Psych: no motor/sensory deficits, alert, normal mood/affect, oriented x 3 Skin: normal color, warm/dry Hospital Course This is a 76 year old extremely anxious female with a PMH of DM2, HTN, hypothyroidism, CKD stage 3, PMR presents with abdominal pain, diarrhea/nausea, found to have hyponatremia Hypovolemic Hyponatremia 12/30 Na = 134 doing better, electrolytes stable, controlled 12/29 Na = 133 12/28 Na = 135 ~corrected at about 8/day no fluids necessary advanced to full liquids 12/27 Na on admission = 120 was given 1L of fluid in the ER, and then NS @ 80mL/hr, which was stopped last evening concern for overcorrection as Na today is 132 will give D5 at a low rate, recheck BMP at 1300 Diarrhea, possible Overflow secondary to Constipation 12/30 had a bowel movement today x2 doing better, no pain, no diarrhea, no nausea occasional burping episodes; tolerating full liquid 12/29 miralax, colace, senna dulcolax suppository milk of mag will try mineral oil enema if that does not work 12/28 constipation will add Dulcolax, Senna, Colace Miralax can also add Milk of Mag if no bowel movement later today 12/27 currently on clears, no diarrhea overnight, no vomiting either +nausea, Zofran PRN IV PPI BID for now GI consultation pending Gallbladder U/S = no cholecystitis 5/26 c/o fevers/chills, nausea/vomiting as well Possibly overflow diarrhea, as abdominal CT shows fecal content at this point, we can add IVFs due to significant dehydration Zofran PRN we can continue clears for now GI evaluation; possible EGD? to note: patient has had a gastric ulcer in the past, managed with Prilosec; repeat EGD was pending for 12/24 but she could not make it Protonix BID due to possible coffee ground emesis? H/H stable, monitor Hiatal Hernia/GERD Protonix BID will add Zantac switch PPI to PO on 12/29 Hypomagnesemia - resolved secondary to diarrhea DM2 fairly well controlled at home, with A1c < 7% sliding scale HTN given dose of clonidine this morning Lisinopril increased to 40mg daily CKD stage 3 creat = 1.2, around baseline avoid nephrotoxic agents when able IVFs PMR continue prednisone DVT ppx SCDs, possible GI bleed? FULL, NO MECH VENT Total time spent on discharge = 45 minutes This includes examination of the patient, discharge planning, medication reconciliation, and communication with other providers. Discharge Instructions Please follow-up with Dr. Edwards (covering for Dr. Kline) on January 05 at 11:05AM * You will be discharged with Prilosec 40mg twice daily for reflux * Take Zantac 150mg daily for reflux as well * Your bowel regimen to prevent constipation includes Colace twice a daily, Dulcolax twice a day, and Senna daily * Your dose of Lisinopril is increased to 40mg daily for your blood pressure * PCP should check basic metabolic profile (blood work) for electrolytes; should also check blood pressure * You will be sent home with home health services - should receive physical therapy three times weekly * Outpatient GI follow-up routinely for a follow-up EGD regarding ulcer Additional Copies To Rodriguez Edwards M.D."
[2016-12-30 14:47] VITALS: BP 146/77; PULSE 80; TEMP 36.4; O2SAT 92
[2016-12-30] MEDS ORDERED: PANTOprazole SOD 40 MG TAB PO SCH (20:00)
[2017-01-15] MEDS ORDERED: ZNT150 PO ×2 (15:16→15:18)
[2017-01-15] MEDS ORDERED: RIBO100T2 PO (15:16)
[2017-01-15] MEDS ORDERED: MAGN400C3 PO (15:16)
[2017-01-15] MEDS ORDERED: ANT25 PO (15:16)
[2017-01-15] MEDS ORDERED: PLV75 PO (15:16)
[2017-01-15] MEDS ORDERED: PRT40 PO (15:16)
[2017-01-15] MEDS ORDERED: LISI-461 PO (15:16)
[2017-01-15] MEDS ORDERED: FRRS300 PO (15:16)
[2017-03-12] MEDS ORDERED: POTA20TA16 PO (17:42)
[2017-03-12] MEDS ORDERED: CEFU1TAB33 PO (17:42)
[2017-04-08] MEDS ORDERED: DIPH1TAB87 PO (14:25)
[2017-04-16] MEDS ORDERED: OXYC-787 PO (18:45)
[2017-04-16] MEDS ORDERED: AMOX1TAB43 PO (18:45)
== END 2016-12-30 15:53 | disposition home health service (06) | DRG 641 ==
LOC: ENRESERVTM → ENRESERVDT → C.EDB 14:37 → C.2E 17:53 → C.4E 12-27 15:37
PROVIDERS: ADMIT Family Medicine; ATTEND Family Medicine
DX: E86.1 Hypovolemia (principal); E87.1 Hypo-osmolality and hyponatremia; R19.7 Diarrhea, unspecified; K59.00 Constipation, unspecified; E87.8 Other disorders of electrolyte and fluid balance, not elsewhere classified; K21.9 Gastro-esophageal reflux disease without esophagitis; E83.42 Hypomagnesemia; E11.9 Type 2 diabetes mellitus without complications; I12.9 Hypertensive chronic kidney disease with stage 1 through stage 4 chronic kidney disease, or unspecified chronic kidney disease; N18.9 Chronic kidney disease, unspecified; M35.3 Polymyalgia rheumatica; M19.90 Unspecified osteoarthritis, unspecified site

== ENCOUNTER 2017-01-12 18:46 | Inpatient (IN) | payer OTHER ==
[~2017-01-12] VITALS: Ht 147.3 cm; Wt 71.8 kg
[~2017-01-12 18:46] MED LIST changes: +CLC100 PO; +DLC5 PO; -LISI20TA3 PO; +LSN40 PO; +SNK PO; +ZNT150 PO
[2017-01-12 21:57] VITALS: BP 176/97; PULSE 83; TEMP 36.9; O2SAT 95; Ht 147.3 cm; Wt 71.8 kg
[2017-01-12] MEDS ORDERED: SODIUM CHLORIDE 0.9% 1000ML 1,000 ML IV SCH (22:20)
[2017-01-12] MEDS ORDERED: ACETAMINOPHEN 325 MG TAB PO PRN (22:30)
[2017-01-12] MEDS ORDERED: POLYETHYLENE (MIRALAX) 17 GM PACK PO PRN (22:30)
[2017-01-12] MEDS ORDERED: ALUMINUM/MAGNESIUM/SIMETH (MAALOX MAX) 30 ML UDC PO PRN (22:30)
[2017-01-12] MEDS ORDERED: MAGNESIUM HYDROXIDE SUSP 30 ML UDC PO PRN (22:30)
[2017-01-12] MEDS ORDERED: VENL-273 (23:06)
[2017-01-12 23:42] VITALS: BP 168/99; PULSE 85; TEMP 36.8; O2SAT 94
[2017-01-13] VITALS (7 sets, daily range): BP systolic 116–182; BP diastolic 56–115; PULSE 33–96; TEMP 36.5–36.8; O2SAT 90–99
[2017-01-13] MEDS ORDERED: ACETAMINOPHEN 325 MG TAB PO PRN (01:45)
[2017-01-13] MEDS ORDERED: MECLIZINE HCL 25 MG TAB PO PRN (01:45)
[2017-01-13] MEDS ORDERED: LIDOCAINE HCL 2% VISC SOLN 20 ML UDC PO PRN (01:45)
[2017-01-13] MEDS ORDERED: SIMETHICONE 80 MG CHEW PO PRN (01:45)
[2017-01-13] MEDS ORDERED: LACTULOSE SYRUP 20 GM/30 ML UDC PO PRN (01:45)
[2017-01-13] MEDS ORDERED: BISACODYL 5 MG TABEC PO PRN (01:45)
[2017-01-13] MEDS ORDERED: SIMVASTATIN 20 MG TAB PO STA (02:14)
[2017-01-13] MEDS ORDERED: PHARMACIST DISCHARGE MED REC CONSULT PRN (02:30)
--- NOTE | 2017-01-13 02:34 | History and Physical ---
"History & Physical Date & Time of Service: Jan 13, 2017 at 02:21 Chief Complaint: TIA Primary Care Physician: Markell Kline M.D. History of Present Illness Source: patient, family This is a 76 year old extremely anxious female with a PMH of DM2, HTN, hypothyroidism, CKD stage 3, PMR sent over from [place] [facility] due to possible TIA - as per daughter, she has been more weak and lethargic recently. Went to [place] [facility], and had a head CT which showed possible chronic lacunar infarcts. As per records, patient and daughter were going to sing out AMA at [facility], but then decided to be transferred here for further management. During my exam, no motor strength issues. She has trouble finding words. Was here with similar symptoms in December - had work/up at that time; Brain MRI showed chronic small vessel changes. Past Medical/Surgical History Medical Problems: (1) CKD (chronic kidney disease), stage III Status: Chronic (2) Depression Status: Chronic (3) Diabetes mellitus type 2, diet-controlled Status: Chronic (4) Diabetic neuropathy Status: Chronic (5) Dyslipidemia Status: Chronic (6) Gastric ulcer Status: Chronic (7) HTN (hypertension) Status: Chronic (8) Hypothyroid Status: Chronic (9) KENIA (iron deficiency anemia) Status: Chronic (10) Osteoarthritis Status: Chronic (11) Rectal prolapse Permanent Comment: s/p repair Status: Chronic (12) Rectocele Permanent Comment: s/p repair Status: Chronic Surgical Problems: (1) H/O shoulder surgery Status: Chronic (2) H/O umbilical hernia repair Status: Chronic Family History Diabetes mellitus FATHER SISTER FH: CAD (coronary artery disease) MOTHER Stroke BROTHER Social History Smoking Status: Never Smoker Immunizations History of Influenza Vaccine: Yes Influenza Vaccine Date: Apr 29, 2016 History of Tetanus Vaccine?: Yes Tetanus Immunization Date: Feb 29, 2008 History of Pneumococcal: Yes Pneumococcal Date: Apr 29, 2016 Multi-Drug Resistant Organisms History of MDRO: No Allergies Coded Allergies: Gabapentin (Verified Allergy, Severe, MOUTH SWELLS, 12/26/16) Pregabalin (Verified Allergy, Severe, MOUTH SWELLS, 12/26/16) Home Medications Scheduled Docusate Sodium (Docusate Sodium), 100 MG PO BID Duloxetine HCl (Cymbalta), 1 CAP PO QAM Ferrous Sulfate (Kp Ferrous Sulfate), 1 TAB PO BID Furosemide (Lasix), 20 MG PO QAM Glucosamine Sulfate (Glucosamine), 1,000 MG PO QAM Latanoprost (Xalatan 0.005% Oph Chanelle), 1 DROP OPB HS Levothyroxine Sodium (Synthroid), 75 MCG PO QAM Lidocaine Hcl (Mouth-Throat) (Lidocaine Hcl), 2 TBS PO UD Loratadine (Claritin), 10 MG PO HS Multivitamins/Minerals (Mvi With Minerals), 1 TAB PO DAILY Oxycodone HCl (Oxycodone HCl ER), 30 MG PO Q12 Polyethylene Glycol 3350 (Miralax), 17 GM PO DAILY Prednisone (Prednisone), 5 MG PO QAM Ranitidine HCl (Ranitidine HCl), 150 MG PO QAM Senna (Senna Lax), 8.6 MG PO QAM Sennosides-Docusate Sodium (Stool Softener), 1 TAB PO QAM Simvastatin (Zocor), 20 MG PO HS Venlafaxine Hcl (Venlafaxine Hcl Er), DAILY Vitamin E (E-400), 1 TAB PO QAM Scheduled PRN Acetaminophen (Acetaminophen), 2 TAB PO QID PRN for Pain Bisacodyl (Bisacodyl EC), 5 MG PO BID PRN for Constipation Fluocinolone Acetonide (Fluocinolone Acetonide), 1 APPLN TOP BID PRN for rash Fluticasone Propionate (Nasal) (Flonase Allergy Relief), 1 SPRAY FELIPE QAM PRN for Nasal Congestion Lactulose (Lactulose), 30 ML PO TID PRN for Constipation Magic Swizzle (Magic Swizzle - SUCRALFA/ALUM/MAG/DIPHEN/LIDO), 3-4 TSP PO Q4-6H PRN for MOUTH ULCERS Meclizine Hcl (Meclizine Hcl), 1 TAB PO TID PRN for VERIGO/DIZZINESS Nystatin (Topical) (Nystatin), 1 APPL TOP UD PRN for RASH Nystatin/Triamcinolone (Mycolog ||), 1 APPL TOP UD PRN for rash Simethicone (Gas-X), 80 MG PO QID PRN for GAS Review of Systems Constitutional: + weakness, No fever, No chills Respiratory: No cough, No sputum, No wheezing, No shortness of breath, No dyspnea on exertion Cardiovascular: No chest pain, No orthopnea, No edema, No palpitations Abdomen: + pain, + constipation, No nausea, No vomiting, No diarrhea, No GI bleeding Genitourinary - Female: No dysuria, No urinary frequency, No urinary urgency, No urinary incontinence Neurologic: + weakness, + balance problems, No memory loss, No paralysis, No numbness/tingling, No vertigo Psychiatric: + anxiety, No depression symptoms, No anhedonism, No insomnia Endocrine: + fatigue Hematologic / Lymphatic: No abnormal bleeding/bruising Integumentary: No rash Allergic / Immunologic: No environmental allergies Physical Exam Vital Signs Date Time Temp Pulse Resp B/P (MAP) Pulse Ox O2 Delivery O2 Flow Rate FiO2 01/12/17 23:59 Room Air 01/12/17 23:59 Room Air 01/12/17 23:42 36.8 85 19 168/99 (122) 94 Room Air 01/12/17 21:57 36.9 83 18 176/97 95 Room Air General Appearance: + pertinent finding (significant anxiety) Head: normocephalic, atraumatic Eyes: normal inspection Respiratory/Chest: chest non-tender, lungs clear, normal breath sounds, no respiratory distress, no accessory muscle use Cardiovascular: regular rate, rhythm, no edema, no murmur, normal peripheral pulses Abdomen/GI: normal bowel sounds, non tender, soft Extremities/Musculoskelatal: normal capillary refill, no pedal edema Neurologic/Psych: [employer] II-XII nml as tested, no motor/sensory deficits, alert, normal mood/affect, oriented x 3, + pertinent finding (difficulty finding words) Skin: normal color Lymphatic: no adenopathy Impression Assessment and Plan This is a 76 year old extremely anxious female with a PMH of DM2, HTN, hypothyroidism, CKD stage 3, PMR sent over from [place] [facility] due to possible TIA Possible TIA as per daughter, she has been having trouble with finding words brought her to [place] [facility]; had head CT showing chronic changes sent over here for further input/management Brain MRI/MRA done in December 2016 no need for another MRA, will check Brain MRI for any acute changes neurology consultation for further input PT/OT/speech Constipation recent admission due to constipation continue bowel regimen encourage ambulation DM2 well controlled Ha1c = 6.8% diet controlled Hypothyroidism continue current meds PMR chronic prednisone use DVT ppx subq heparin FULL CODE Advanced Directives Existing Living Will: No Existing Power of Gold Assayer: No VTE Prophylaxis VTE Risk Assessment Done? Y/N: Yes Risk Level: Moderate"
[2017-01-13] MEDS ORDERED: HydrALAZINE HCL 20 MG/ML VIAL IV. STA (04:40)
[2017-01-13] MEDS ORDERED: LORAZEPAM 2 MG/ML 1 ML VIAL IV PRN (04:45)
[2017-01-13] MEDS: HEPARIN SOD 5000 UNIT/0.5 ML CARP SQ SCH ×3 (06:00→21:44)
[2017-01-13] MEDS: LEVOTHYROXINE 75 MCG TAB PO SCH (06:00)
[2017-01-13] MEDS ORDERED: NURSING VERBAL MED ORDER ONE (07:15)
[2017-01-13 07:57] LABS: HEMATOCRIT 42.1 % (37-47); MEAN CELL VOLUME 93.1 fL (80-100); MEAN CORPUSCULAR HEMOGLOBIN 31.2 pg (25-34); MEAN CORPUSCULAR HGB CONC 33.5 g/dl (32-36); MEAN PLATELET VOLUME 8.5 fL (7.4-10.4); PLATELET COUNT 182 K/uL (130-400); RED BLOOD COUNT 4.52 M/uL (4.2-5.4); WHITE BLOOD COUNT 7.14 K/uL (4.8-10.8)
[2017-01-13 08:31] LABS: BUN/CREATININE RATIO 17.1 (10-20); CREATININE 0.76 mg/dl (0.60-1.20); MAGNESIUM 1.4 mg/dl (1.8-2.4); POTASSIUM 3.3 mmol/L (3.5-5.1)
[2017-01-13] MEDS ORDERED: FERROUS SULFATE 325 MG TAB PO SCH (09:00)
[2017-01-13 09:05] LABS: CALCIUM 8.6 mg/dl (8.5-10.1)
[2017-01-13] MEDS: RANITIDINE HCL 150 MG TAB PO SCH (10:02)
--- NOTE | 2017-01-13 10:26 | DIAGNOSTIC IMAGING REPORT ---
Brain MRI WITHOUT CONTRAST HISTORY: Mental status change r/o cava TECHNIQUE: Multiplanar multisequence MRI of the brain was performed without the use of contrast. COMPARISON STUDY: 12/05/2016 FINDINGS: There are no areas of restricted diffusion to suggest acute infarction. The midline structures are intact. The paranasal sinuses are clear. The mastoid air cells are clear. The ventricles and sulci are within normal limits for age. There is no mass, hematoma, midline shift. The major vascular flow-voids at the skull base are well maintained. Multiple foci of increased signal within the periventricular deep white matter regions most consistent with that of chronic small vessel change. This is unaltered from the prior exam. IMPRESSION: 1. No evidence for an acute ischemic process. 2. Similar study compared to the prior exam with foci of increased signal bilaterally suggesting chronic small vessel change. 3. No change from the prior exam. Electronically signed by: Weston Vaz M.D. 01/13/2017 10:25 AM Dictated Date/Time: 01/13/2017 10:22 AM
[2017-01-13] MEDS: DULOXETINE (CYMBALTA) 30 MG CAP PO SCH (13:03)
[2017-01-13] MEDS: CEROVITE ADV FORMULA TAB PO SCH (13:03)
[2017-01-13] MEDS: SENNA 8.6 MG TAB PO SCH (13:04)
[2017-01-13] MEDS: DOCUSATE SODIUM/SENNA 50/8.6MG TAB PO SCH (13:04)
[2017-01-13] MEDS: POLYETHYLENE (MIRALAX) 17 GM PACK PO SCH (13:04)
[2017-01-13] MEDS: FUROSEMIDE 20 MG TAB PO SCH (13:05)
[2017-01-13] MEDS: DOCUSATE SODIUM 100 MG CAP PO SCH ×2 (13:05→21:43)
[2017-01-13] MEDS: VENLAFAXINE HCL XR 75 MG CAPXR PO SCH (13:08)
[2017-01-13] MEDS: OXYCODONE HCL 15 MG TABCR (OXYCONTIN) PO SCH ×2 (13:11→21:42)
[2017-01-13] MEDS ORDERED: POTASSIUM CHLORIDE 20 MEQ TABCR PO ONE (14:00)
[2017-01-13] MEDS ORDERED: PANTOprazole SOD 40 MG TAB PO ONE (14:00)
[2017-01-13] MEDS ORDERED: MAGNESIUM OXIDE 400 MG TAB PO ONE (14:00)
--- NOTE | 2017-01-13 14:02 | Neurology Consultation ---
Neurology Consultation Date of Consultation: Jan 13, 2017. Attending Physician: Ricardo Trivedi M.D. Primary Care Physician: Markell Kline M.D. Reason for Consultation: stroke like symptoms History of Present Illness Source: patient Rebecca arriaga is a 76 year old female with a PMH of DM2, HTN, hypothyroidism, CKD stage 3, PMR sent over from [facility] due to possible TIA . A CT which showed possible chronic lacunar infarcts. She didn' t want to come to [facility] and was going to leave AMA at [facility], but then decided to be transferred. Upon arrival she states that she had an MRI which showed no stroke. She states for the past 2 days she was having a headache which would resolve with 2 tylenol. Her daughter took her to the [facility] because she was concerned that the headache was reoccurring and she had some confusion. She does have a past history of migraines. denies CP, SOB, abdominal pain, one sided numbness weakness, N, V, dizziness, vision changes, swallowing difficulty. she is not on aspirin because she has a history of bleeding ulcers. She has a history of vertigo and takes meclizine which she had prior to headache and confusion Past Medical/Surgical History Medical Problems: (1) Acute kidney injury Status: Acute (2) Constipation Status: Acute (3) Hypomagnesemia Status: Acute (4) Non-STEMI (non-ST elevated myocardial infarction) Status: Acute (5) Weakness Status: Acute Social History Smoking Status: Never smoker Smokeless Tobacco Use: No Alcohol Use: none Drug Use: none Allergies Coded Allergies: Gabapentin (Verified Allergy, Severe, MOUTH SWELLS, 12/26/16) Pregabalin (Verified Allergy, Severe, MOUTH SWELLS, 12/26/16) Current Inpatient Medications Current Inpatient Medications Medications (Trade) Dose Ordered Sig/Fab Route Start Time Stop Time Status Last Admin Dose Admin Acetaminophen (Tylenol Tab) 650 mg Q4H PRN PO 01/12/17 22:30 02/11/17 22:29 Al Hydrox/Mg Hydrox/Simethicone (Maalox Max Susp) 15 ml Q4H PRN PO 01/12/17 22:30 02/11/17 22:29 Magnesium Hydroxide (Milk Of Magnesia Susp) 30 ml Q12H PRN PO 01/12/17 22:30 02/11/17 22:29 Ondansetron HCl (Zofran Inj) 4 mg Q6H PRN IV 01/12/17 22:30 02/11/17 22:29 Polyethylene (Miralax Powder Packet) 17 gm DAILY PRN PO 01/12/17 22:30 02/11/17 22:29 Bisacodyl (Dulcolax Tab) 5 mg BID PRN PO 01/13/17 01:45 02/12/17 01:44 Docusate Sodium (coLACE CAP) 100 mg BID PO 01/13/17 09:00 02/12/17 08:59 Duloxetine HCl (Cymbalta Cap) 30 mg QAM PO 01/13/17 09:00 02/12/17 08:59 01/13/17 13:03 30 MG Furosemide (Lasix Tab) 20 mg QAM PO 01/13/17 09:00 02/12/17 08:59 01/13/17 13:05 20 MG Lactulose (Chronulac Syrup) 20 gm TID PRN PO 01/13/17 01:45 02/12/17 01:44 Latanoprost (Xalatan Oph Soln) 1 drops HS OPB 01/13/17 21:00 02/12/17 20:59 Levothyroxine Sodium (Synthroid Tab) 75 mcg DAILYBB PO 01/13/17 06:00 02/12/17 05:59 Lidocaine HCl (Viscous Lidocaine 2% Soln) 20 ml PRN PRN PO 01/13/17 01:45 02/12/17 01:44 Loratadine (Claritin Tab) 10 mg HS PO 01/13/17 21:00 02/12/17 20:59 Meclizine HCl (Antivert Tab) 25 mg TID PRN PO 01/13/17 01:45 02/12/17 01:44 Multivitamins/ Minerals (Multivitamin W/ Minerals Tab) 1 tab DAILY PO 01/13/17 09:00 02/12/17 08:59 01/13/17 13:03 1 TAB Prednisone (PredniSONE TAB) 5 mg QAM PO 01/13/17 09:00 02/12/17 08:59 01/13/17 13:05 5 MG Ranitidine HCl (zANTac TAB) 150 mg QAM PO 01/13/17 09:00 02/12/17 08:59 01/13/17 10:02 150 MG Senna (Senokot Tab) 8.6 mg QAM PO 01/13/17 09:00 02/12/17 08:59 Senna/Docusate Sodium (Senokot S Tab) 1 tab QAM PO 01/13/17 09:00 02/12/17 08:59 Simethicone (Mylicon Chew Tab) 80 mg QID PRN PO 01/13/17 01:45 02/12/17 01:44 Simvastatin (Zocor Tab) 20 mg HS PO 01/13/17 21:00 02/12/17 20:59 Ferrous Sulfate (Feosol Tab) 325 mg BID PO 01/13/17 09:00 02/12/17 08:59 01/13/17 13:03 325 MG Oxycodone HCl (Oxycontin Tab) 30 mg Q12 PO 01/13/17 09:00 02/12/17 08:59 01/13/17 13:11 30 MG Polyethylene (Miralax Powder Packet) 17 gm DAILY PO 01/13/17 09:00 02/12/17 08:59 Venlafaxine HCl (effeXOR EXTENDED REL CAP) 75 mg QAM PO 01/13/17 09:00 02/12/17 08:59 01/13/17 13:08 75 MG Miscellaneous Information (Pharmacist Discharge Med Rec Consult) 1 ea UD PRN N/A 01/13/17 02:30 02/12/17 02:29 Heparin Sodium (Porcine) (Heparin Sq 5000 Unit/0.5ml) 5,000 unit Q8 SQ 01/13/17 06:00 02/12/17 05:59 Lorazepam (Ativan Inj) 1 mg Q4H PRN IV 01/13/17 04:45 02/12/17 04:44 01/13/17 07:23 1 MG Pantoprazole Sodium (Protonix Tab) 40 mg QAM PO 01/14/17 09:00 02/13/17 08:59 Pantoprazole Sodium (Protonix Tab) 40 mg 1400 ONCE PO 01/13/17 14:00 01/13/17 14:01 Magnesium Oxide (Mag-Ox Tab) 400 mg BID PO 01/13/17 21:00 02/12/17 20:59 Magnesium Oxide (Mag-Ox Tab) 400 mg 1400 ONCE PO 01/13/17 14:00 01/13/17 14:01 Potassium Chloride (Klor-Con Tab) 20 meq 1400 ONCE PO 01/13/17 14:00 01/13/17 14:01 Physical Exam Vital Signs (Past 24 Hrs): Date Time Temp Pulse Resp B/P (MAP) Pulse Ox O2 Delivery O2 Flow Rate FiO2 01/13/17 12:00 Room Air 01/13/17 11:50 36.6 84 18 168/109 (128) 99 Room Air 01/13/17 08:00 Room Air 01/13/17 07:44 36.7 80 18 163/82 (109) 95 Room Air 01/13/17 04:30 36.5 69 17 182/93 (122) 94 Room Air 01/13/17 04:00 Room Air 01/12/17 23:59 Room Air 01/12/17 23:59 Room Air 01/12/17 23:42 36.8 85 19 168/99 (122) 94 Room Air 01/12/17 21:57 36.9 83 18 176/97 95 Room Air Physical Exam: Constitutional: appearance nourished, obese Ears, Nose, Mouth and Throat: mucous membranes moist, no injection and skin normal, eyes normal Cardiovascular: normal S-1 and S-2 and regular rate and rhythm Respiratory: clear to auscultation (CTA) and no rales, rhonchi or wheeze Musculoskeletal: none pitting edema and good distal pulses Skin: no stigmata of neurocutaneous disease noted and normal and intact Eyes: extraocular muscles intact (EOMI) and pupils equal, round and reactive to light (PERRL), miotic NEUROLOGIC EXAMINATION: Mental status: Alert and interactive Oriented to full day of week, 2017, president Maria Dolores, [facility] in [place], identifies keys pen, and what to do with them Oriented to person Speech fluent with no evidence of aphasia Cranial Nerves smile eye brow raise symmetric, tongue midline Reflexes: Deep tendon reflexes were symmetrical and graded 2/5. 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 Hip flex plantar flex ext 4/5 bilaterally, generalized weakness Laboratory Results Past 24 Hours: 01/13/17 07:40 01/13/17 07:40 Test 01/13/17 07:40 Red Blood Count 4.52 M/uL (4.2-5.4) Mean Corpuscular Volume 93.1 fL (80-100) Mean Corpuscular Hemoglobin 31.2 pg (25-34) Mean Corpuscular Hemoglobin Concent 33.5 g/dl (32-36) RDW Standard Deviation 42.2 fL (36.4-46.3) RDW Coefficient of Variation 12.6 % (11.5-14.5) Mean Platelet Volume 8.5 fL (7.4-10.4) Anion Gap 11.0 mmol/L (3-11) Est Creatinine Clear Calc Drug Dose 53.9 ml/min Estimated GFR () 89.6 Estimated GFR (Non- 77.3 BUN/Creatinine Ratio 17.1 (10-20) Calcium Level 8.6 mg/dl (8.5-10.1) Magnesium Level 1.4 mg/dl (1.8-2.4) Imaging MRI brain without -FINDINGS: There are no areas of restricted diffusion to suggest acute infarction. The midline structures are intact. The paranasal sinuses are clear. The mastoid air cells are clear. The ventricles and sulci are within normal limits for age. There is no mass, hematoma, midline shift. The major vascular flow-voids at the skull base are well maintained. Multiple foci of increased signal within the periventricular deep white matter regions most consistent with that of chronic small vessel change. This is unaltered from the prior exam. Impression 76 year old female TIA and previous strokes. Plan 1. optimize blood pressure control, DL, DM 2. PT/OT and speech for discharge needs 3. aspirin 81 mg should be started however she had a history of GI bleed that needs worked up prior to start, has upper GI scheduled 4. headache management if no contra indication could start magnesium 400 mg daily and riboflavin 100 mg daily 5. tylenol relieves headache can continue PRN but would not over use can cause rebound headaches 6. patient is on chronic steroids and narcotics for her back pain 7. meclizine could be reduced to prevent confusion -may need to be discontinued - Karina maneuver was beneficial during the November admission out patient PT should be revisited. 8. MRI no acute findings 9. during her admission in November she had a cards consult and TTE in December a carotid doppler was done with no significant stenosis I have seen and discussed above patient with Dr Ricardo Madison, neurology I have seen this woman and reviewed the above history has headaches likely recurrent migraines and vertigo ( did not offer thsi as a complaint to me today or to Aditi Saha ) along with generalized weakness and apparently some hyponatremia ( not corroborated here ) and apparetnly had a ct in [place] that showed possible recent strokes ( in reality these are old lacunes stable by the current mri ) and prior extensive evaluations here have been negative. At this point exam is nonfocal and I would make no changes in the above recommendations ie mag oxide riboflavin and cutting back on the meclizine and follow up with pt for balance threapy and another karina if the vertigo continues. See no neurological reason she could not be discharged Ricardo Madison MD
[2017-01-13 15:14] LABS: URINE APPEARANCE CLEAR (CLEAR); URINE BILIRUBIN NEG (NEG); URINE COLOR YELLOW; URINE EPITHELIAL CELL AUTO 20-30 /lpf (0-5); URINE NITRITE NEG (NEG); URINE PH 7.5 (4.5-7.5); URINE SPECIFIC GRAVITY 1.011 (1.000-1.030); UROBILINOGEN NEG (NEG); ZZUR CULT IF INDIC CLEAN CATCH NO
[2017-01-13 15:17] LABS: MANUAL MICROSCOPIC REQUIRED? NO; REVIEW REQ? NO
[2017-01-13 15:18] LABS: SULFASALICYLIC ACID POS (NEG)
--- NOTE | 2017-01-13 19:06 | Progress Note ---
Medicine Progress Note Date & Time of Visit: Jan 13, 2017 at 11:45 . Subjective Admitted last night due to confusion and possible TIA. Somnolent this morning, but received lorazepam prior to MRI. Daughter visiting. No fever. Recent vertigo, taking meclizine PRN at home. No headache. No diplopia, dysarthria, aphasia, or other focal neurologic symptoms. No chest pain. No significant cough or shortness of breath. Chronic reflux symptoms, no nausea or vomiting. Constipated. Mild dysuria. . Objective Last 8 Hrs Date Time Temp Pulse Resp B/P (MAP) Pulse Ox O2 Delivery O2 Flow Rate FiO2 01/13/17 16:05 36.8 33 16 161/115 (130) 90 Room Air 149/111 (124) 01/13/17 16:00 Room Air 01/13/17 15:50 90 20 148/78 (101) 90 01/13/17 12:00 Room Air 01/13/17 11:50 36.6 84 18 168/109 (128) 99 Room Air Physical Exam: General- lying in bed, no distress Neck- no JVD Lungs- clear Heart- regular, no gallop appreciated Abdomen- normal bowel sounds, soft, nontender Extremities- no pretibial edema or calf tenderness Neuro- somnolent, but arousable; oriented to person and place, but not date; PERRL, EOMI; no facial palsy; no dysarthria or aphasia; tongue midline; motor strength upper and lower extremities essentially 5/5 bilaterally; plantar reflexes downgoing bilaterally . Laboratory Results: Last 24 Hours Test 01/13/17 07:40 01/13/17 12:25 White Blood Count 7.14 K/uL Red Blood Count 4.52 M/uL Hemoglobin 14.1 g/dL Hematocrit 42.1 % Mean Corpuscular Volume 93.1 fL Mean Corpuscular Hemoglobin 31.2 pg Mean Corpuscular Hemoglobin Concent 33.5 g/dl RDW Standard Deviation 42.2 fL RDW Coefficient of Variation 12.6 % Platelet Count 182 K/uL Mean Platelet Volume 8.5 fL Sodium Level 136 mmol/L Potassium Level 3.3 mmol/L Chloride Level 97 mmol/L Carbon Dioxide Level 28 mmol/L Anion Gap 11.0 mmol/L Blood Urea Nitrogen 13 mg/dl Creatinine 0.76 mg/dl Est Creatinine Clear Calc Drug Dose 53.9 ml/min Estimated GFR () 89.6 Estimated GFR (Non- 77.3 BUN/Creatinine Ratio 17.1 Random Glucose 95 mg/dl Calcium Level 8.6 mg/dl Magnesium Level 1.4 mg/dl Urine Color YELLOW Urine Appearance CLEAR Urine pH 7.5 Urine Specific [place] 1.011 Urine Protein TRACE Urine Glucose (UA) NEG Urine Ketones TRACE Urine Occult Blood NEG Urine Nitrite NEG Urine Bilirubin NEG Urine Urobilinogen NEG Urine Leukocyte Esterase NEG Urine WBC (Auto) 1-5 /hpf Urine RBC (Auto) 0-4 /hpf Urine Hyaline Casts (Auto) 0 /lpf Urine Epithelial Cells (Auto) 20-30 /lpf Urine Bacteria (Auto) NEG Diagnostic Imaging: MRI BRAIN IMPRESSION: 1. No evidence for an acute ischemic process. 2. Similar study compared to the prior exam with foci of increased signal bilaterally suggesting chronic small vessel change. 3. No change from the prior exam. Electronically signed by: Weston Vaz M.D. 01/13/2017 10:25 AM . Assessment & Plan ALTERED MENTAL STATUS MRI shows chronic appearing small vessel ischemic changes, but no acute or subacute vascular events. Patient complains of dysuria- check UA. Confusion a have been secondary to meclizine patient was taking for vertigo- try to reduce dose or avoid if possible. Consider decreasing oxycodone dose if possible. Consult Neurology. HYPERTENSION Check orthostatics. Follow and titrate therapy. CKD III Serum creatinine today = 0.76. Follow. GERD Continue ranitidine and PPI. DM TYPE II Diet controlled. Recent Hgb A1C = 6.8. Follow. HYPOTHYROIDISM Continue levothyroxine. PMR Continue prednisone. DEPRESSION Continue venlafaxine. DVT PROPHYLAXIS SQ heparin. Ambulate. DISPOSITION Expected discharge to home. May benefit from home health nursing services. Case Management consult. Family Medicine follow-up with Dr. Kline. . Current Inpatient Medications: Current Inpatient Medications Medications (Trade) Dose Ordered Sig/Fab Route Start Time Stop Time Status Last Admin Dose Admin Acetaminophen (Tylenol Tab) 650 mg Q4H PRN PO 01/12/17 22:30 02/11/17 22:29 Al Hydrox/Mg Hydrox/Simethicone (Maalox Max Susp) 15 ml Q4H PRN PO 01/12/17 22:30 02/11/17 22:29 Magnesium Hydroxide (Milk Of Magnesia Susp) 30 ml Q12H PRN PO 01/12/17 22:30 02/11/17 22:29 Ondansetron HCl (Zofran Inj) 4 mg Q6H PRN IV 01/12/17 22:30 02/11/17 22:29 Polyethylene (Miralax Powder Packet) 17 gm DAILY PRN PO 01/12/17 22:30 02/11/17 22:29 Bisacodyl (Dulcolax Tab) 5 mg BID PRN PO 01/13/17 01:45 02/12/17 01:44 Docusate Sodium (coLACE CAP) 100 mg BID PO 01/13/17 09:00 02/12/17 08:59 Duloxetine HCl (Cymbalta Cap) 30 mg QAM PO 01/13/17 09:00 02/12/17 08:59 01/13/17 13:03 30 MG Furosemide (Lasix Tab) 20 mg QAM PO 01/13/17 09:00 02/12/17 08:59 01/13/17 13:05 20 MG Lactulose (Chronulac Syrup) 20 gm TID PRN PO 01/13/17 01:45 02/12/17 01:44 Latanoprost (Xalatan Oph Soln) 1 drops HS OPB 01/13/17 21:00 02/12/17 20:59 Levothyroxine Sodium (Synthroid Tab) 75 mcg DAILYBB PO 01/13/17 06:00 02/12/17 05:59 Lidocaine HCl (Viscous Lidocaine 2% Soln) 20 ml PRN PRN PO 01/13/17 01:45 02/12/17 01:44 Loratadine (Claritin Tab) 10 mg HS PO 01/13/17 21:00 02/12/17 20:59 Multivitamins/ Minerals (Multivitamin W/ Minerals Tab) 1 tab DAILY PO 01/13/17 09:00 02/12/17 08:59 01/13/17 13:03 1 TAB Prednisone (PredniSONE TAB) 5 mg QAM PO 01/13/17 09:00 02/12/17 08:59 01/13/17 13:05 5 MG Ranitidine HCl (zANTac TAB) 150 mg QAM PO 01/13/17 09:00 02/12/17 08:59 6/13/17 10:02 150 MG Senna (Senokot Tab) 8.6 mg QAM PO 01/13/17 09:00 02/12/17 08:59 Senna/Docusate Sodium (Senokot S Tab) 1 tab QAM PO 01/13/17 09:00 02/12/17 08:59 Simethicone (Mylicon Chew Tab) 80 mg QID PRN PO 01/13/17 01:45 02/12/17 01:44 Simvastatin (Zocor Tab) 20 mg HS PO 01/13/17 21:00 02/12/17 20:59 Oxycodone HCl (Oxycontin Tab) 30 mg Q12 PO 01/13/17 09:00 02/12/17 08:59 01/13/17 13:11 30 MG Polyethylene (Miralax Powder Packet) 17 gm DAILY PO 01/13/17 09:00 02/12/17 08:59 Venlafaxine HCl (effeXOR EXTENDED REL CAP) 75 mg QAM PO 01/13/17 09:00 02/12/17 08:59 01/13/17 13:08 75 MG Miscellaneous Information (Pharmacist Discharge Med Rec Consult) 1 ea UD PRN N/A 01/13/17 02:30 02/12/17 02:29 Heparin Sodium (Porcine) (Heparin Sq 5000 Unit/0.5ml) 5,000 unit Q8 SQ 01/13/17 06:00 02/12/17 05:59 01/13/17 14:22 5,000 UNIT Pantoprazole Sodium (Protonix Tab) 40 mg QAM PO 01/14/17 09:00 02/13/17 08:59 Magnesium Oxide (Mag-Ox Tab) 400 mg BID PO 01/13/17 21:00 02/12/17 20:59
[2017-01-13] MEDS ORDERED: LISINOPRIL 20 MG TAB PO ONE (19:15)
[2017-01-13] MEDS ORDERED: ENALAPRILAT IV 0.625 MG in DEXTROSE 5% 25ML 25 ML IV PRN (19:45)
[2017-01-13] MEDS: LATANOPROST 0.005% OP SOLN 2.5 ML BTL OPB SCH (21:00)
[2017-01-13] MEDS: MAGNESIUM OXIDE 400 MG TAB PO SCH (21:42)
[2017-01-13] MEDS: SIMVASTATIN 20 MG TAB PO SCH (21:42)
[2017-01-13] MEDS: LORATADINE 10 MG TAB PO SCH (21:42)
[2017-01-13] MEDS: ONDANSETRON INJ 2 MG/ML 2 ML VIAL IV PRN (23:41)
[2017-01-14] VITALS (8 sets, daily range): BP systolic 125–168; BP diastolic 74–99; PULSE 76–118; TEMP 36.6–36.9; O2SAT 92–97
[2017-01-14] MEDS: HEPARIN SOD 5000 UNIT/0.5 ML CARP SQ SCH ×3 (06:14→21:04)
[2017-01-14] MEDS: LEVOTHYROXINE 75 MCG TAB PO SCH (06:14)
[2017-01-14 08:06] LABS: BUN/CREATININE RATIO 15.3 (10-20); CALCIUM 8.3 mg/dl (8.5-10.1); CREATININE 1.1 mg/dl (0.60-1.20); POTASSIUM 3.8 mmol/L (3.5-5.1)
[2017-01-14 08:08] LABS: THYROID STIMULATING HORMONE 2.04 uIu/ml (0.300-4.500)
[2017-01-14] MEDS: DOCUSATE SODIUM 100 MG CAP PO SCH ×2 (08:23→21:03)
[2017-01-14] MEDS: DULOXETINE (CYMBALTA) 30 MG CAP PO SCH (08:23)
[2017-01-14] MEDS: FUROSEMIDE 20 MG TAB PO SCH (08:24)
[2017-01-14] MEDS: MAGNESIUM OXIDE 400 MG TAB PO SCH ×2 (08:24→21:02)
[2017-01-14] MEDS: VENLAFAXINE HCL XR 75 MG CAPXR PO SCH (08:24)
[2017-01-14] MEDS: CEROVITE ADV FORMULA TAB PO SCH (08:24)
[2017-01-14] MEDS: POLYETHYLENE (MIRALAX) 17 GM PACK PO SCH (08:24)
[2017-01-14] MEDS: DOCUSATE SODIUM/SENNA 50/8.6MG TAB PO SCH (08:25)
[2017-01-14] MEDS: SENNA 8.6 MG TAB PO SCH (08:25)
[2017-01-14] MEDS: OXYCODONE HCL 15 MG TABCR (OXYCONTIN) PO SCH ×2 (08:25→21:03)
[2017-01-14] MEDS: RANITIDINE HCL 150 MG TAB PO SCH (08:25)
[2017-01-14] MEDS: PANTOprazole SOD 40 MG TAB PO SCH (08:25)
--- NOTE | 2017-01-14 09:18 | Clinical Documentation Query ---
CLINICAL DOCUMENTATION QUERY Dr. PIERRE, In your clinical opinion is this patient being managed for: ( x ) Encephalopathy due to medication/s (meclizine/oxycodone) ( ) Other explanation of clinical findings (Please Explain) ( ) Unable to determine (Please Define) ( ) Need to Discuss ( ) Not Agree The medical record reflects the following clinical findings, treatment, and risk factors. Clinical Indicators: 76 yo female presenting with TIA and increasing lethargy and confusion. Confusion attributed to possibly being related to meclizine. MRI brain without acute changes. Treatment: attempt to reduce meclizine or avoid if possible, attempt to reduce oxycodone dose, neurology consult, MRI brain Risk Factors:medication effect Please clarify and document your clinical opinion in the progress notes and discharge summary. Terms such as "probable", "suspected", "likely", "questionable", "possible", or "still to be ruled out" are acceptable. IF IN AGREEMENT, YOU MUST DOCUMENT ABOVE DIAGNOSTIC STATEMENT IN DAILY PROGRESS NOTES AND DISCHARGE SUMMARY. This document is not part of the patient's record. Thank You, Liala Dorantes, RN [phone]
[2017-01-14] MEDS ORDERED: LORAZEPAM 0.5 MG TAB PO SCH (14:29)
[2017-01-14] MEDS ORDERED: SODIUM CHLORIDE 0.9% 1000ML 1,000 ML IV SCH (14:30)
[2017-01-14] MEDS ORDERED: LORAZEPAM 0.5 MG TAB PO PRN (14:30)
--- NOTE | 2017-01-14 16:49 | PROGRESS NOTE ---
DATE: 01/14/2017 I saw Rebecca today. She is sitting in a chair. She is much more active. She has no or very minimal symptoms of vertigo or headache, which was one the precipitating factors of her admission, is now essentially gone and her exam shows a little suboccipital tenderness, normal movements of the neck, normal eye movements, normal cranial nerves, clear speech and no focal neurologic deficits. At this point, neurology really does need to see her on a regular basis. Dr. Trivedi apparently is holding her here for blood pressure evaluation, and if this is stable she can probably go home. Follow up with her primary care physician, and if Dr. Kline feels neurology needs to see her, would be happy to take a look at her in our clinic at [facility].
[2017-01-14] MEDS: ONDANSETRON INJ 2 MG/ML 2 ML VIAL IV PRN (19:14)
--- NOTE | 2017-01-14 20:03 | Progress Note ---
Medicine Progress Note Date & Time of Visit: Jan 14, 2017 at 13:30 . Subjective Generally doing better. No headaches or vertigo. Confusion resolved. BP's have been fluctuating. No fever. No chest pain. No cough or SOB. No nausea or vomiting. Moved bowels after receiving laxatives. Weak. Doesn't feel like she is ready to go home yet, but not interested in skilled care or rehab. . Objective Last 8 Hrs Date Time Temp Pulse Resp B/P (MAP) Pulse Ox O2 Delivery O2 Flow Rate FiO2 01/14/17 16:00 Room Air 01/14/17 15:28 36.9 95 18 137/84 (101) 95 Room Air 01/14/17 13:25 36.6 99 18 131/99 (110) 97 Room Air 111 147/88 (107) 118 125/85 (98) 01/14/17 12:00 96 Room Air Physical Exam: General- no distress Neck- no JVD Lungs- clear Heart- regular, no gallop appreciated Abdomen- normal bowel sounds, soft, nontender Extremities- no pretibial edema or calf tenderness Neuro- alert . Laboratory Results: Last 24 Hours Test 01/14/17 07:05 Sodium Level 135 mmol/L Potassium Level 3.8 mmol/L Chloride Level 96 mmol/L Carbon Dioxide Level 31 mmol/L Anion Gap 8.0 mmol/L Blood Urea Nitrogen 17 mg/dl Creatinine 1.10 mg/dl Est Creatinine Clear Calc Drug Dose 37.2 ml/min Estimated GFR () 57.3 Estimated GFR (Non- 49.4 BUN/Creatinine Ratio 15.3 Random Glucose 101 mg/dl Calcium Level 8.3 mg/dl Ammonia < 10.0 umol/L Thyroid Stimulating Hormone (TSH) 2.040 uIu/ml Assessment & Plan ALTERED MENTAL STATUS MRI showed chronic appearing small vessel ischemic changes, but no acute or subacute vascular events. Patient complains of dysuria- UA negative. Serum ammonia not elevated. Suspect that altered mental status due to metabolic encephalopathy from meclizine which she was taking for vertigo. Consider decreasing oxycodone dose if possible. Consult Neurology. HYPERTENSION BP's fluctuating, probably due to underlying anxiety. Try lisinopril 10 mg BID with hold parameters. Follow and titrate therapy. ORTHOSTATIC TACHYCARDIA HR 99 supine, 118 standing. Probably volume depleted. IV NSS x 1 L. CKD III Serum creatinine today = 1.10. Follow. GERD Continue ranitidine and PPI. DM TYPE II Diet controlled. Recent Hgb A1C = 6.8. Follow. HYPOTHYROIDISM Continue levothyroxine. PMR Continue prednisone. DEPRESSION Stop duloxetine because of (1) recent hyponatremia and (2) drug interactions with venlafaxine. Continue venlafaxine XR 150 mg daily. ANXIETY Very anxious at times. Apparent panic attack this afternoon. Lorazepam 0.25 mg PRN with caution. DVT PROPHYLAXIS SQ heparin. Ambulate. DISPOSITION Expected discharge to home. Not willing to consider skilled care or rehab. Will need home health nursing services. Case Management consult. Family Medicine follow-up with Dr. Kline. . Current Inpatient Medications: Current Inpatient Medications Medications (Trade) Dose Ordered Sig/Fab Route Start Time Stop Time Status Last Admin Dose Admin Acetaminophen (Tylenol Tab) 650 mg Q4H PRN PO 01/12/17 22:30 02/11/17 22:29 Al Hydrox/Mg Hydrox/Simethicone (Maalox Max Susp) 15 ml Q4H PRN PO 01/12/17 22:30 02/11/17 22:29 Magnesium Hydroxide (Milk Of Magnesia Susp) 30 ml Q12H PRN PO 01/12/17 22:30 02/11/17 22:29 Ondansetron HCl (Zofran Inj) 4 mg Q6H PRN IV 01/12/17 22:30 02/11/17 22:29 01/14/17 19:14 4 MG Polyethylene (Miralax Powder Packet) 17 gm DAILY PRN PO 01/12/17 22:30 02/11/17 22:29 Bisacodyl (Dulcolax Tab) 5 mg BID PRN PO 01/13/17 01:45 02/12/17 01:44 Docusate Sodium (coLACE CAP) 100 mg BID PO 01/13/17 09:00 02/12/17 08:59 01/14/17 08:23 100 MG Duloxetine HCl (Cymbalta Cap) 30 mg QAM PO 01/13/17 09:00 02/12/17 08:59 01/14/17 08:23 30 MG Furosemide (Lasix Tab) 20 mg QAM PO 01/13/17 09:00 02/12/17 08:59 Future Hold 01/14/17 08:24 20 MG Lactulose (Chronulac Syrup) 20 gm TID PRN PO 01/13/17 01:45 02/12/17 01:44 Latanoprost (Xalatan Oph Soln) 1 drops HS OPB 01/13/17 21:00 02/12/17 20:59 01/13/17 21:00 1 DROPS Levothyroxine Sodium (Synthroid Tab) 75 mcg DAILYBB PO 01/13/17 06:00 02/12/17 05:59 01/14/17 06:14 75 MCG Lidocaine HCl (Viscous Lidocaine 2% Soln) 20 ml PRN PRN PO 01/13/17 01:45 02/12/17 01:44 Loratadine (Claritin Tab) 10 mg HS PO 01/13/17 21:00 02/12/17 20:59 01/13/17 21:42 10 MG Multivitamins/ Minerals (Multivitamin W/ Minerals Tab) 1 tab DAILY PO 01/13/17 09:00 02/12/17 08:59 01/14/17 08:24 1 TAB Prednisone (PredniSONE TAB) 5 mg QAM PO 01/13/17 09:00 02/12/17 08:59 01/14/17 08:25 5 MG Ranitidine HCl (zANTac TAB) 150 mg QAM PO 01/13/17 09:00 02/12/17 08:59 01/14/17 08:25 150 MG Senna (Senokot Tab) 8.6 mg QAM PO 01/13/17 09:00 02/12/17 08:59 01/14/17 08:25 8.6 MG Senna/Docusate Sodium (Senokot S Tab) 1 tab QAM PO 01/13/17 09:00 02/12/17 08:59 01/14/17 08:25 1 TAB Simethicone (Mylicon Chew Tab) 80 mg QID PRN PO 01/13/17 01:45 02/12/17 01:44 Simvastatin (Zocor Tab) 20 mg HS PO 01/13/17 21:00 02/12/17 20:59 01/13/17 21:42 20 MG Oxycodone HCl (Oxycontin Tab) 30 mg Q12 PO 01/13/17 09:00 02/12/17 08:59 01/14/17 08:25 30 MG Polyethylene (Miralax Powder Packet) 17 gm DAILY PO 01/13/17 09:00 02/12/17 08:59 Venlafaxine HCl (effeXOR EXTENDED REL CAP) 75 mg QAM PO 01/13/17 09:00 02/12/17 08:59 01/14/17 08:24 75 MG Miscellaneous Information (Pharmacist Discharge Med Rec Consult) 1 ea UD PRN N/A 01/13/17 02:30 02/12/17 02:29 Heparin Sodium (Porcine) (Heparin Sq 5000 Unit/0.5ml) 5,000 unit Q8 SQ 01/13/17 06:00 02/12/17 05:59 01/14/17 13:25 5,000 UNIT Pantoprazole Sodium (Protonix Tab) 40 mg QAM PO 01/14/17 09:00 02/13/17 08:59 01/14/17 08:25 40 MG Magnesium Oxide (Mag-Ox Tab) 400 mg BID PO 01/13/17 21:00 02/12/17 20:59 01/14/17 08:24 400 MG Enalaprilat 0.625 mg/Dextrose 25.5 ml @ 100 mls/hr Q6H PRN IV 01/13/17 19:45 02/12/17 19:44 Lorazepam (Ativan Tab) 0.25 mg Q6H PRN PO 01/14/17 14:30 02/13/17 14:29 Sodium Chloride 1,000 ml @ 100 mls/hr Q10H IV 01/14/17 14:30 01/15/17 00:29 01/14/17 15:34 100 MLS/HR
[2017-01-14] MEDS: LORATADINE 10 MG TAB PO SCH (21:02)
[2017-01-14] MEDS: SIMVASTATIN 20 MG TAB PO SCH (21:02)
[2017-01-14] MEDS: LATANOPROST 0.005% OP SOLN 2.5 ML BTL OPB SCH (21:02)
[2017-01-15] VITALS (7 sets, daily range): BP systolic 130–159; BP diastolic 74–95; PULSE 87–103; TEMP 36.4–36.9; O2SAT 94
[2017-01-15] MEDS: LEVOTHYROXINE 75 MCG TAB PO SCH (05:41)
[2017-01-15] MEDS: HEPARIN SOD 5000 UNIT/0.5 ML CARP SQ SCH ×2 (05:43→14:03)
[2017-01-15 07:19] LABS: BUN/CREATININE RATIO 15.7 (10-20); CALCIUM 8.3 mg/dl (8.5-10.1); CREATININE 1.1 mg/dl (0.60-1.20); MAGNESIUM 1.8 mg/dl (1.8-2.4)
[2017-01-15] MEDS: CEROVITE ADV FORMULA TAB PO SCH (08:48)
[2017-01-15] MEDS: PANTOprazole SOD 40 MG TAB PO SCH (08:48)
[2017-01-15] MEDS: DOCUSATE SODIUM 100 MG CAP PO SCH (08:48)
[2017-01-15] MEDS: DOCUSATE SODIUM/SENNA 50/8.6MG TAB PO SCH (08:48)
[2017-01-15] MEDS: SENNA 8.6 MG TAB PO SCH (08:48)
[2017-01-15] MEDS: RANITIDINE HCL 150 MG TAB PO SCH (08:48)
[2017-01-15] MEDS: MAGNESIUM OXIDE 400 MG TAB PO SCH (08:48)
[2017-01-15] MEDS: POLYETHYLENE (MIRALAX) 17 GM PACK PO SCH (08:48)
[2017-01-15] MEDS ORDERED: VENLAFAXINE HCL XR 150 MG CAPXR PO SCH (09:00)
[2017-01-15] MEDS: OXYCODONE HCL 15 MG TABCR (OXYCONTIN) PO SCH (09:56)
--- NOTE | 2017-01-15 14:58 | Progress Note ---
Medicine Progress Note Date & Time of Visit: Jan 15, 2017 at 14:57 . Subjective Mental status back to baseline. No headaches. No fever. No chest pain, cough, shortness of breath, nausea, vomiting. BM yesterday after receiving laxative. No urinary symptoms. . Objective Last 8 Hrs Date Time Temp Pulse Resp B/P (MAP) Pulse Ox O2 Delivery O2 Flow Rate FiO2 01/15/17 12:00 94 Room Air 01/15/17 11:18 36.4 103 18 155/95 (115) 94 Room Air 01/15/17 08:00 94 Room Air 01/15/17 07:23 36.6 87 16 159/88 (111) 94 Room Air Physical Exam: General- standing at bedside; no distress Neck- no JVD Lungs- clear Heart- regular, no gallop appreciated Abdomen- normal bowel sounds, soft, nontender Extremities- trace pretibial edema, venous stasis changes, no calf tenderness Neuro- alert, oriented . Laboratory Results: Last 24 Hours Test 01/15/17 06:18 Sodium Level 136 mmol/L Potassium Level 4.0 mmol/L Chloride Level 97 mmol/L Carbon Dioxide Level 32 mmol/L Anion Gap 7.0 mmol/L Blood Urea Nitrogen 17 mg/dl Creatinine 1.10 mg/dl Est Creatinine Clear Calc Drug Dose 37.2 ml/min Estimated GFR () 57.3 Estimated GFR (Non- 49.4 BUN/Creatinine Ratio 15.7 Random Glucose 84 mg/dl Calcium Level 8.3 mg/dl Magnesium Level 1.8 mg/dl Assessment & Plan ALTERED MENTAL STATUS MRI showed chronic appearing small vessel ischemic changes, but no acute or subacute vascular events. Patient complains of dysuria- UA negative. Serum ammonia not elevated. Suspect that altered mental status due to metabolic encephalopathy from meclizine which she was taking for vertigo. Neurology consulted. Antiplatelet therapy with clopidogrel recommended in light of small vessel ischemic disease. Neuro status back to baseline. HYPERTENSION Daughter concerned about possible low blood pressures at home. BP's fluctuating, probably due to underlying anxiety. Daughter will obtain BP cuff. Changed lisinopril to 10 mg BID, hold for systolic BP less than 120. Follow and titrate therapy. ORTHOSTATIC TACHYCARDIA HR 99 supine, 118 standing. Probably volume depleted. Received IV NSS x 1 L. CKD III Serum creatinine today = 1.10. HYPOMAGNESEMIA Serum magnesium 1.4. Discharged on magnesium oxide 400 mg BID. GERD Continue ranitidine and PPI. HISTORY PUD History of small gastric ulcer in 2016, treated with omeprazole. H&H stable. Change PPI from omeprazole to pantoprazole because of clopidogrel therapy. DM TYPE II Diet controlled. Recent Hgb A1C = 6.8. Follow. HYPOTHYROIDISM TSH normal. Continue levothyroxine. PMR Continue prednisone. VERTIGO Decreased meclizine to 12.5 mg BID PRN, not to be used for lightheadedness. DEPRESSION Stop duloxetine because of (1) recent hyponatremia and (2) drug interactions with venlafaxine. Continue venlafaxine XR 150 mg daily. ANXIETY Very anxious at times. Apparent panic attack this afternoon. Received lorazepam 0.25 mg PRN with caution. DVT PROPHYLAXIS SQ heparin. Ambulating. DISPOSITION Not willing to consider skilled care or rehab. Discharge to home health nursing services. Case Management consult. Family Medicine follow-up with Dr. Kline. . Current Inpatient Medications: Current Inpatient Medications Medications (Trade) Dose Ordered Sig/Fab Route Start Time Stop Time Status Last Admin Dose Admin Acetaminophen (Tylenol Tab) 650 mg Q4H PRN PO 01/12/17 22:30 02/11/17 22:29 Al Hydrox/Mg Hydrox/Simethicone (Maalox Max Susp) 15 ml Q4H PRN PO 01/12/17 22:30 02/11/17 22:29 Magnesium Hydroxide (Milk Of Magnesia Susp) 30 ml Q12H PRN PO 01/12/17 22:30 02/11/17 22:29 Ondansetron HCl (Zofran Inj) 4 mg Q6H PRN IV 01/12/17 22:30 02/11/17 22:29 01/14/17 19:14 4 MG Polyethylene (Miralax Powder Packet) 17 gm DAILY PRN PO 01/12/17 22:30 02/11/17 22:29 Bisacodyl (Dulcolax Tab) 5 mg BID PRN PO 01/13/17 01:45 02/12/17 01:44 Docusate Sodium (coLACE CAP) 100 mg BID PO 01/13/17 09:00 02/12/17 08:59 01/15/17 08:48 100 MG Furosemide (Lasix Tab) 20 mg QAM PO 01/13/17 09:00 02/12/17 08:59 Future Hold 01/14/17 08:24 20 MG Lactulose (Chronulac Syrup) 20 gm TID PRN PO 01/13/17 01:45 02/12/17 01:44 Latanoprost (Xalatan Oph Soln) 1 drops HS OPB 01/13/17 21:00 02/12/17 20:59 01/14/17 21:02 1 DROPS Levothyroxine Sodium (Synthroid Tab) 75 mcg DAILYBB PO 01/13/17 06:00 02/12/17 05:59 01/15/17 05:41 75 MCG Lidocaine HCl (Viscous Lidocaine 2% Soln) 20 ml PRN PRN PO 01/13/17 01:45 02/12/17 01:44 Loratadine (Claritin Tab) 10 mg HS PO 01/13/17 21:00 02/12/17 20:59 01/14/17 21:02 10 MG Multivitamins/ Minerals (Multivitamin W/ Minerals Tab) 1 tab DAILY PO 01/13/17 09:00 02/12/17 08:59 01/15/17 08:48 1 TAB Prednisone (PredniSONE TAB) 5 mg QAM PO 01/13/17 09:00 02/12/17 08:59 01/15/17 08:48 5 MG Ranitidine HCl (zANTac TAB) 150 mg QAM PO 01/13/17 09:00 02/12/17 08:59 01/15/17 08:48 150 MG Senna (Senokot Tab) 8.6 mg QAM PO 01/13/17 09:00 02/12/17 08:59 01/15/17 08:48 8.6 MG Senna/Docusate Sodium (Senokot S Tab) 1 tab QAM PO 01/13/17 09:00 02/12/17 08:59 01/15/17 08:48 1 TAB Simethicone (Mylicon Chew Tab) 80 mg QID PRN PO 01/13/17 01:45 02/12/17 01:44 Simvastatin (Zocor Tab) 20 mg HS PO 01/13/17 21:00 02/12/17 20:59 01/14/17 21:02 20 MG Oxycodone HCl (Oxycontin Tab) 30 mg Q12 PO 01/13/17 09:00 02/12/17 08:59 01/15/17 09:56 30 MG Polyethylene (Miralax Powder Packet) 17 gm DAILY PO 01/13/17 09:00 02/12/17 08:59 01/15/17 08:48 17 GM Heparin Sodium (Porcine) (Heparin Sq 5000 Unit/0.5ml) 5,000 unit Q8 SQ 01/13/17 06:00 02/12/17 05:59 01/15/17 14:03 5,000 UNIT Pantoprazole Sodium (Protonix Tab) 40 mg QAM PO 01/14/17 09:00 02/13/17 08:59 01/15/17 08:48 40 MG Magnesium Oxide (Mag-Ox Tab) 400 mg BID PO 01/13/17 21:00 02/12/17 20:59 01/15/17 08:48 400 MG Enalaprilat 0.625 mg/Dextrose 25.5 ml @ 100 mls/hr Q6H PRN IV 01/13/17 19:45 02/12/17 19:44 Lorazepam (Ativan Tab) 0.25 mg Q6H PRN PO 01/14/17 14:30 02/13/17 14:29 01/15/17 08:48 0.25 MG Venlafaxine HCl (effeXOR EXTENDED REL CAP) 150 mg QAM PO 01/15/17 09:00 02/14/17 08:59 01/15/17 08:48 150 MG
[2017-01-15] MEDS ORDERED: VENL150C56 PO (15:01)
[2017-01-15] MEDS ORDERED: LSN40 PO (15:13)
[2017-01-15] MEDS ORDERED: MAGN400C3 PO (15:16)
[2017-01-15] MEDS ORDERED: ZNT150 PO ×2 (15:16→15:18)
[2017-01-15] MEDS ORDERED: RIBO100T2 PO (15:16)
[2017-01-15] MEDS ORDERED: FRRS300 PO (15:16)
[2017-01-15] MEDS ORDERED: LISI-461 PO (15:16)
[2017-01-15] MEDS ORDERED: PRT40 PO (15:16)
[2017-01-15] MEDS ORDERED: ANT25 PO (15:16)
[2017-01-15] MEDS ORDERED: PLV75 PO (15:16)
--- NOTE | 2017-01-15 15:32 | Discharge Instructions ---
Discharge Instructions Date of Service Jan 15, 2017. Admission Reason for Admission: weakness and confusion . Discharge Discharge Diagnosis / Problem: weakness and confusion Discharge Goals Goal(s): Decrease discomfort, Improve function, Increase independence, Improve disease control Activity Recommendations Activity Limitations: resume your previous activity . Instructions / Follow-Up Instructions / Follow-Up APPOINTMENTS: FAMILY MEDICINE / INTERNAL MEDICINE 01/19/2017 3:40 PM Janny Moon DO (covering for Dr. Kline) INSTRUCTIONS: You came to the hospital because you were weak and confused. Meclizine (Antivert) may have been causing your problems. You did not have a stroke. NEW MEDICATIONS: clopidogrel (Plavix) 75 mg 1 pill daily helps prevent heart attacks and strokes lisinopril (Prinivil) 10 mg 1 pill twice a day new dose- lower dose, now twice a day skip dose if systolic blood pressure is below 120 magnesium oxide 400 mg 1 pill twice a day good for nerve and muscle function pantoprazole (Protonix) 40 mg 1 pill daily replaces omeprazole ( Protonix) riboflavin 100 mg 1 pill daily helps with headaches MEDICATION CHANGES: ranitidine (Zantac) 150 mg take at bedtime new time ferrous sulfate (iron) 325 mg take once a day with lunch new dose and time meclizine (Antivert) 25 mg take 1/2 pill twice a day new dose as needed for vertigo MEDICATIONS TO STOP: lisinopril (Prinivil) 40 mg omeprazole (Prilosec) 40 mg can interact with clopidogrel (Plavix) duloxetine (Cymbalta) 30 mg can interact with venlafaxine (Effexor) glucosamine probably doesn't help with arthritis Seek medical attention if you have: * temperature above 101 * chest pain or trouble breathing * abdominal pain, nausea, vomiting * diarrhea, dark stools or bloody stools * any unanswered questions or concerns Call 911 if symptoms are severe. Call if you have any questions or problems. My cell # is [phone]. You can also reach a [facility] hospitalist on duty at [facility] 24 hours a day by calling [phone]. Please take good care of yourself. Ricardo Trivedi . Current Hospital Diet Patient's current hospital diet: Regular Diet Discharge Diet Recommended Diet: AHA Diet (Heart Healthy) Pending Studies Studies pending at discharge: no Laboratory Results Hemoglobin A1c Test 11/26/16 05:20 Range/Units Estimated Average Glucose 148 mg/dl Hemoglobin A1c 6.8 H 4.5-5.6 % Lipid Panel Test 11/26/16 05:20 Range/Units Triglycerides Level 131 0-150 mg/dl Cholesterol Level 161 0-200 mg/dl HDL Cholesterol 55 mg/dl Cholesterol/HDL Ratio 2.9 LDL Cholesterol, Calculated 80 mg/dl Medical Emergencies . Who to Call and When: Medical Emergencies: If at any time you feel your situation is an emergency, please call 911 immediately. . Non-Emergent Contact Non-Emergency issues call your: Primary Care Provider, Hospital Doctor . . "Provider Documentation" section prepared by Ricardo Trivedi. . VTE Core Measure Inpt VTE Proph given/why not?: Unfractionated heparin SQ
--- NOTE | 2017-01-15 20:26 | Discharge Summary ---
Discharge Summary Date of Service Jan 15, 2017. Discharge Summary Admission Date: Jan 12, 2017 at 21:10 Discharge Date: Jan 15, 2017 Discharge Disposition: Home with services Principal Diagnosis: altered mental status- probable metabolic encephalopathy due to medication . Secondary Diagnoses/Problems: Chronic and Resolved Medical Problems: (1) CKD (chronic kidney disease), stage III Status: Chronic (2) Depression Status: Chronic (3) Diabetes mellitus type 2, diet-controlled Status: Chronic (4) Diabetic neuropathy Status: Chronic (5) Dyslipidemia Status: Chronic (6) Gastric ulcer Status: Chronic (7) HTN (hypertension) Status: Chronic (8) Hypothyroid Status: Chronic (9) KENIA (iron deficiency anemia) Status: Chronic (10) Osteoarthritis Status: Chronic (11) Rectal prolapse Permanent Comment: s/p repair Status: Chronic (12) Rectocele Permanent Comment: s/p repair Status: Chronic Surgical Problems: (1) H/O shoulder surgery Status: Chronic (2) H/O umbilical hernia repair Status: Chronic . Procedures: cardiac monitoring MRI brain IV fluids . Consultations: Neurology . Medication Reconciliation New Medications: Clopidogrel Bisulfate (Clopidogrel) 75 Mg Tab 75 MG PO DAILY, #30 TAB 5 Refills Ferrous Sulfate (Ferrous Sulfate) 325 Mg Tab 325 MG PO DAILY, #30 TAB 5 Refills No prescription necessary. New dose- take 1 pill daily with lunch. Lisinopril (Lisinopril) 10 Mg Tab 10 MG PO BID, #60 TAB 5 Refills New dose. 10 mg twice a day. Hold if systolic blood pressure is less than 120. Magnesium Oxide (mg Supplement (Magnesium Oxide) 400 Mg Cap 400 MG PO BID, #60 CAP 5 Refills Meclizine HCl (Meclizine HCl) 25 Mg Tab 12.5 MG PO BID PRN for severe vertigo (spinning), #10 TAB 5 Refills Take 1/2 pill as needed for severe dizziness with spinning. No more than 2 doses a day. Pantoprazole (Pantoprazole Sodium) 40 Mg Tab 40 MG PO DAILY, #30 TAB 5 Refills replaces omeprazole (Prilosec) Riboflavin (B2) 100 Mg Tab 100 MG PO DAILY, #30 TAB 5 Refills No prescription necessary. Changed Medications: Ranitidine HCl (Ranitidine HCl) 150 Mg Tab 150 MG PO HS, #30 TAB 5 Refills (Changed from: DAILY; Removed Days; Refills: ) Take at bedtime. Continued Medications: Acetaminophen (Acetaminophen) 325 Mg Tab 2 TAB PO QID PRN for Pain Bisacodyl (Bisacodyl EC) 5 Mg Tabec 5 MG PO BID PRN for Constipation for 30 Days, #60 TAB Docusate Sodium (Docusate Sodium) 100 Mg Cap 100 MG PO BID for 30 Days, #60 CAP Fluocinolone Acetonide (Fluocinolone Acetonide) Unknown Strength Cre 1 APPLN TOP BID PRN for rash Fluticasone Propionate (Nasal) (Flonase Allergy Relief) 50 Mcg/Act Spr 1 SPRAY FELIPE QAM PRN for Nasal Congestion Furosemide (Lasix) 20 Mg Tab 20 MG PO QAM Lactulose (Lactulose) 20 Gm/30 Ml Syrp 30 ML PO TID PRN for Constipation Latanoprost (Xalatan 0.005% Oph Chanelle) 0.005 % Chanelle 1 DROP OPB HS Levothyroxine Sodium (Synthroid) 75 Mcg Tab 75 MCG PO QAM Lidocaine Hcl (Mouth-Throat) (Lidocaine Hcl) 2 % Chanelle 2 TBS PO UD COAT MOUTH ULCERS Loratadine (Claritin) 10 Mg Tab 10 MG PO HS Magic Swizzle (Magic Swizzle - SUCRALFA/ALUM/MAG/DIPHEN/LIDO) 240 Ml Susp 3-4 TSP PO Q4-6H PRN for MOUTH ULCERS 100ml Sucralfate 50ml Maalox 50ml Diphenhydramine 40ml 2% Aq. Lidocaine Swish and Swallow Multivitamins/Minerals (Mvi With Minerals) Tab 1 TAB PO DAILY, TAB Nystatin (Topical) (Nystatin) 1 Pow Pow 1 APPL TOP UD PRN for RASH Nystatin/Triamcinolone (Mycolog ||) Cr 1 APPL TOP UD PRN for rash Oxycodone HCl (Oxycodone HCl ER) 30 Mg Tab 30 MG PO Q12 Polyethylene Glycol 3350 (Miralax) 1 Pow Pow 17 GM PO DAILY Prednisone (Prednisone) 5 Mg Tab 5 MG PO QAM Senna (Senna Lax) 8.6 Mg Tab 8.6 MG PO QAM for 30 Days, #30 TAB Sennosides-Docusate Sodium (Stool Softener) 1 Tab Tab 1 TAB PO QAM Simethicone (Gas-X) 80 Mg Chw 80 MG PO QID PRN for GAS Simvastatin (Zocor) 20 Mg Tab 20 MG PO HS Venlafaxine Hcl (Effexor Extended Rel) 150 Mg Cap 150 MG PO DAILY, CAP Vitamin E (E-400) 400 Unit Cap 1 TAB PO QAM Discontinued Medications: Duloxetine HCl (Cymbalta) 30 Mg Cap 1 CAP PO QAM Ferrous Sulfate (Kp Ferrous Sulfate) 325 Mg Tab 1 TAB PO BID Glucosamine Sulfate (Glucosamine) 1,000 Mg Tab 1000 MG PO QAM Lisinopril (Lisinopril) 40 Mg Tab 40 MG PO DAILY, TAB Meclizine Hcl (Meclizine Hcl) 25 Mg Tab 1 TAB PO TID PRN for VERIGO/DIZZINESS Admission Information HPI (per Admitting provider): This is a 76 year old extremely anxious female with a PMH of DM2, HTN, hypothyroidism, CKD stage 3, PMR sent over from [place] [facility] due to possible TIA - as per daughter, she has been more weak and lethargic recently. Went to [place] ER, and had a head CT which showed possible chronic lacunar infarcts. As per records, patient and daughter were going to sing out AMA at [place], but then decided to be transferred here for further management. During my exam, no motor strength issues. She has trouble finding words. Was here with similar symptoms in December - had work/up at that time; Brain MRI showed chronic small vessel changes. . 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 CT suggested old lacunar strokes. Transferred to [facility] for further evaluation. MRI showed chronic appearing small vessel ischemic changes, but no acute or subacute vascular events. Patient complained of dysuria- UA negative. Serum ammonia not elevated. Suspect that altered mental status due to metabolic encephalopathy from meclizine which she was taking for vertigo. Neurology consulted. Antiplatelet therapy with clopidogrel recommended in light of small vessel ischemic disease. Neuro status back to baseline. HYPERTENSION Daughter concerned about possible low blood pressures at home. BP's fluctuating, probably due to underlying anxiety. Daughter will obtain BP cuff. Changed lisinopril to 10 mg BID, hold for systolic BP less than 120. Follow and titrate therapy. ORTHOSTATIC TACHYCARDIA HR 99 supine, 118 standing. Probably volume depleted. Received IV NSS x 1 L. CKD III Serum creatinine day of discharge = 1.10. HYPOMAGNESEMIA Serum magnesium 1.4. Discharged on magnesium oxide 400 mg BID. GERD Continue ranitidine and PPI. HISTORY PUD History of small gastric ulcer in 2015, treated with omeprazole. H&H stable. Change PPI from omeprazole to pantoprazole because of clopidogrel therapy. DM TYPE II Diet controlled. Recent Hgb A1C = 6.8. Follow. HYPOTHYROIDISM TSH normal. Continue levothyroxine. PMR Continue prednisone. VERTIGO Decreased meclizine to 12.5 mg BID PRN, not to be used for lightheadedness. DEPRESSION Stop duloxetine because of (1) recent hyponatremia and (2) drug interactions with venlafaxine. Continue venlafaxine XR 150 mg daily. ANXIETY Very anxious at times. Apparent panic attack this afternoon. Received lorazepam 0.25 mg PRN with caution. DVT PROPHYLAXIS SQ heparin. Ambulating. DISPOSITION Not willing to consider skilled care or rehab. Discharge to home health nursing services. Case Management consult. Family Medicine follow-up with Dr. Kline. . Total time spent on discharge = 45 min. This includes examination of the patient, discharge planning, medication reconciliation, and communication with other providers. . Discharge Instructions Date of Service Jan 15, 2017. Admission Reason for Admission: weakness and confusion . Discharge Discharge Diagnosis / Problem: weakness and confusion Discharge Goals Goal(s): Decrease discomfort, Improve function, Increase independence, Improve disease control Activity Recommendations Activity Limitations: resume your previous activity . Instructions / Follow-Up Instructions / Follow-Up APPOINTMENTS: FAMILY MEDICINE / INTERNAL MEDICINE 01/19/2017 3:40 PM Janny Moon DO (covering for Dr. Kline) INSTRUCTIONS: You came to the hospital because you were weak and confused. Meclizine (Antivert) may have been causing your problems. You did not have a stroke. NEW MEDICATIONS: clopidogrel (Plavix) 75 mg 1 pill daily helps prevent heart attacks and strokes lisinopril (Prinivil) 10 mg 1 pill twice a day new dose- lower dose, now twice a day skip dose if systolic blood pressure is below 120 magnesium oxide 400 mg 1 pill twice a day good for nerve and muscle function pantoprazole (Protonix) 40 mg 1 pill daily replaces omeprazole ( Protonix) riboflavin 100 mg 1 pill daily helps with headaches MEDICATION CHANGES: ranitidine (Zantac) 150 mg take at bedtime new time ferrous sulfate (iron) 325 mg take once a day with lunch new dose and time meclizine (Antivert) 25 mg take 1/2 pill twice a day new dose as needed for vertigo MEDICATIONS TO STOP: lisinopril (Prinivil) 40 mg omeprazole (Prilosec) 40 mg can interact with clopidogrel (Plavix) duloxetine (Cymbalta) 30 mg can interact with venlafaxine (Effexor) glucosamine probably doesn't help with arthritis Seek medical attention if you have: * temperature above 101 * chest pain or trouble breathing * abdominal pain, nausea, vomiting * diarrhea, dark stools or bloody stools * any unanswered questions or concerns Call [phone] if symptoms are severe. Call if you have any questions or problems. My cell # is [phone]. You can also reach a [facility] hospitalist on duty at [facility] 24 hours a day by calling [phone]. Please take good care of yourself. Ricardo Trivedi . Current Hospital Diet Patient's current hospital diet: Regular Diet Discharge Diet Recommended Diet: AHA Diet (Heart Healthy) Pending Studies Studies pending at discharge: no Laboratory Results Hemoglobin A1c Test 11/26/16 05:20 Range/Units Estimated Average Glucose 148 mg/dl Hemoglobin A1c 6.8 H 4.5-5.6 % Lipid Panel Test 11/26/16 05:20 Range/Units Triglycerides Level 131 0-150 mg/dl Cholesterol Level 161 0-200 mg/dl HDL Cholesterol 55 mg/dl Cholesterol/HDL Ratio 2.9 LDL Cholesterol, Calculated 80 mg/dl Medical Emergencies . Who to Call and When: Medical Emergencies: If at any time you feel your situation is an emergency, please call 911 immediately. . Non-Emergent Contact Non-Emergency issues call your: Primary Care Provider, Hospital Doctor . . "Provider Documentation" section prepared by Ricardo Trivedi. . VTE Core Measure Inpt VTE Proph given/why not?: Unfractionated heparin SQ .
[2017-03-12] MEDS ORDERED: CEFU1TAB33 PO (17:42)
[2017-03-12] MEDS ORDERED: POTA20TA16 PO (17:42)
[2017-04-08] MEDS ORDERED: DIPH1TAB87 PO (14:25)
[2017-04-16] MEDS ORDERED: OXYC-787 PO (18:45)
[2017-04-16] MEDS ORDERED: AMOX1TAB43 PO (18:45)
== END 2017-01-15 16:47 | disposition home health service (06) | DRG 93 ==
LOC: C.2T 21:10
PROVIDERS: ADMIT Internal Medicine; ATTEND Hospitalist
DX: G92 Toxic encephalopathy (principal); N18.3 Chronic kidney disease, stage 3 (moderate); T45.0X5A Adverse effect of antiallergic and antiemetic drugs, initial encounter; F32.9 Major depressive disorder, single episode, unspecified; E11.42 Type 2 diabetes mellitus with diabetic polyneuropathy; E78.5 Hyperlipidemia, unspecified; M19.90 Unspecified osteoarthritis, unspecified site; E03.9 Hypothyroidism, unspecified; F41.9 Anxiety disorder, unspecified; K59.00 Constipation, unspecified; M35.3 Polymyalgia rheumatica; E83.42 Hypomagnesemia; I49.8 Other specified cardiac arrhythmias; I12.9 Hypertensive chronic kidney disease with stage 1 through stage 4 chronic kidney disease, or unspecified chronic kidney disease; E11.22 Type 2 diabetes mellitus with diabetic chronic kidney disease; E86.9 Volume depletion, unspecified; K25.9 Gastric ulcer, unspecified as acute or chronic, without hemorrhage or perforation; D50.9 Iron deficiency anemia, unspecified; R42 Dizziness and giddiness; Z79.899 Other long term (current) drug therapy; Z79.891 Long term (current) use of opiate analgesic; Z87.11 Personal history of peptic ulcer disease; Z79.52 Long term (current) use of systemic steroids; Z79.51 Long term (current) use of inhaled steroids

== ENCOUNTER 2017-03-11 15:12 | Inpatient (IN) | payer OTHER ==
[~2017-03-11] VITALS: Ht 152.4 cm; Wt 67.5 kg
[~2017-03-11 15:12] MED LIST changes: +ANT25 PO; -ASCA500 PO; -BACL1TAB PO; -CYM/30 PO; -DORZ1SOL6 OP; -FERR1TAB13 PO; +FRRS300 PO; -GLUC10007 PO; +LISI-461 PO; -LSN40 PO; +MAGN400C3 PO; -MECL1TAB42 PO; -OMEP40CA41 PO; +PLV75 PO; +PRT40 PO; +RIBO100T2 PO
[2017-03-11] MEDS ORDERED: SODIUM CHLORIDE 0.9% 1000ML 1,000 ML IV STA (15:25)
[2017-03-11] MEDS ORDERED: ACET-1256 PO (15:29)
[2017-03-11] MEDS ORDERED: SENNTAB23 PO (15:31)
[2017-03-11] MEDS ORDERED: SODIUM CHLORIDE 0.9% 500ML 500 ML IV STA (15:36)
[2017-03-11] MEDS ORDERED: ONDANSETRON 8 MG/54 ML D5W IV STA (15:36)
--- NOTE | 2017-03-11 15:57 | EMERGENCY ROOM VISIT NOTE ---
"History Report prepared by Sherry: Brittney Oneil Under the Supervision of: Dr. Ricardo Grajeda M.D. First contact with patient: 15:24 Chief Complaint: ABDOMINAL PAIN Stated Complaint: WEAK, VOMITING UP GREEN, ABD. PAINS History of Present Illness The patient is a 76 year old female who presents to the Emergency Room with complaints of constant severe abdominal pain beginning 5 days ago. The patient' s daughter states that the patient has not been feeling well over the last 5 days and has not been able to keep food or fluids down. She reports the the patient has been vomiting green bile intermittently and her last episode was yesterday afternoon. She notes that the patient has a sore throat that began a few weeks ago and new mouth sores that have caused difficulty swallowing. The patient complains of nausea, chills, muscle aches, intermittent diarrhea, and passing very little gas. Pt denies LOC, headache, fevers, diaphoresis, visual changes, neck pain, chest pain, breathing difficulties, back pain, melena, hematochezia, urinary symptoms, numbness, weakness, lymphadenopathy, rash, or other complaints. The daughter notes a history of TIA and reports that the patient is on Plavix. She reports that the patient has also has a history of diverticulitis but has never had a cholecystectomy or appendectomy. Source of History: patient, family Onset: 5 days ago Position: abdomen Timing: constant Associated Symptoms: + sorethroat, + nausea, + vomiting, + diarrhea Note: Pt has difficulty swallowing and mouth sores. Review of Systems See HPI for pertinent positives and negatives. A total of ten systems were reviewed and were otherwise negative. Past Medical & Surgical Medical Problems: (1) CKD (chronic kidney disease), stage III (2) Depression (3) Diabetes mellitus type 2, diet-controlled (4) Diabetic neuropathy (5) Dyslipidemia (6) Gastric ulcer (7) HTN (hypertension) (8) Hypothyroid (9) KENIA (iron deficiency anemia) (10) Osteoarthritis (11) Rectal prolapse (12) Rectocele (13) TIA (transient ischemic attack) Surgical Problems: (1) H/O shoulder surgery (2) H/O umbilical hernia repair Family History Diabetes mellitus FATHER SISTER FH: CAD (coronary artery disease) MOTHER Stroke BROTHER Social History Smoking Status: Former Smoker Drug Use: none Marital Status: Housing Status: lives with significant other Occupation Status: retired Current/Historical Medications Scheduled Clopidogrel Bisulfate (Clopidogrel), 75 MG PO DAILY Docusate Sodium (Docusate Sodium), 100 MG PO BID Ferrous Sulfate (Ferrous Sulfate), 325 MG PO DAILY Furosemide (Lasix), 20 MG PO QAM Latanoprost (Xalatan 0.005% Oph Chanelle), 1 DROP OPB BID Levothyroxine Sodium (Synthroid), 75 MCG PO QAM Lidocaine Hcl (Mouth-Throat) (Lidocaine Hcl), 2 TBS PO UD Lisinopril (Lisinopril), 10 MG PO BID Loratadine (Claritin), 10 MG PO HS Magnesium Oxide (mg Supplement (Magnesium Oxide), 400 MG PO BID Multivitamins/Minerals (Mvi With Minerals), 1 TAB PO DAILY Oxycodone HCl (Oxycodone HCl ER), 30 MG PO Q12 Pantoprazole (Pantoprazole Sodium), 40 MG PO DAILY Polyethylene Glycol 3350 (Miralax), 17 GM PO DAILY Prednisone (Prednisone), 5 MG PO QAM Ranitidine HCl (Ranitidine HCl), 150 MG PO HS Riboflavin (B2), 100 MG PO DAILY Senna (Senna Lax), 8.6 MG PO QAM Sennosides-Docusate Sodium (Stool Softener), 1 TAB PO QAM Simvastatin (Zocor), 20 MG PO HS Venlafaxine Hcl (Effexor Extended Rel), 150 MG PO DAILY Vitamin E (E-400), 1 TAB PO QAM Scheduled PRN Acetaminophen (Tylenol), 1,000 MG PO BID PRN for Pain or Fever Fluocinolone Acetonide (Fluocinolone Acetonide), 1 APPLN TOP BID PRN for rash Fluticasone Propionate (Nasal) (Flonase Allergy Relief), 1 SPRAY FELIPE QAM PRN for Nasal Congestion Lactulose (Lactulose), 30 ML PO TID PRN for Constipation Magic Swizzle (Magic Swizzle - SUCRALFA/ALUM/MAG/DIPHEN/LIDO), 3-4 TSP PO Q4-6H PRN for MOUTH ULCERS Meclizine HCl (Meclizine HCl), 12.5 MG PO BID PRN for severe vertigo (spinning) Nystatin (Topical) (Nystatin), 1 APPL TOP UD PRN for RASH Nystatin/Triamcinolone (Mycolog ||), 1 APPL TOP UD PRN for rash Simethicone (Gas-X), 80 MG PO QID PRN for GAS Allergies Coded Allergies: Gabapentin (Verified Allergy, Severe, MOUTH SWELLS, 03/11/17) Pregabalin (Verified Allergy, Severe, MOUTH SWELLS, 03/11/17) Physical Exam Vital Signs Date Time Temp Pulse Resp B/P (MAP) Pulse Ox O2 Delivery O2 Flow Rate FiO2 03/11/17 16:22 79 18 128/85 95 Room Air 03/11/17 15:15 36.4 93 16 124/76 91 Room Air Physical Exam GENERAL: Awake, alert, uncomfortable HENT: Normocephalic, atraumatic. Prominent lingual taste buds present. EYES: Normal conjunctiva. Sclera non-icteric. NECK: Supple. No nuchal rigidity. FROM. No JVD. RESPIRATORY: Clear to auscultation. CARDIAC: Regular rate, normal rhythm. Extremities warm and well perfused. Pulses equal. ABDOMEN: Soft, non-distended. Lower abdominal tenderness. No rebound or guarding. No masses. RECTAL: Deferred. MUSCULOSKELETAL: Chest examination reveals no tenderness. The back is symmetrical on inspection without obvious abnormality. There is no CVA tenderness to palpation. No joint edema. LOWER EXTREMITIES: Calves are equal size bilaterally and non-tender. No discoloration. Trace lower extremity edema. NEURO: Normal sensorium. No sensory or motor deficits noted. SKIN: No rash or jaundice noted. Scattered bruising on upper extremities. Medical Decision & Procedures ER Provider Diagnostic Interpretation: Radiology results as stated below per my review and radiologist interpretation: CT SCAN OF THE ABDOMEN AND PELVIS WITHOUT CONTRAST FINDINGS: Lower chest: There is a hiatal hernia. Liver: The unenhanced liver is normal in size, contour, and attenuation. There is no intrahepatic biliary ductal dilatation. Gallbladder: Cholelithiasis Spleen: Normal in size and attenuation. Pancreas: Unremarkable. Adrenal glands: Unremarkable. Kidneys: The unenhanced kidneys are normal in size without hydronephrosis. There is no contour deforming renal mass lesion. No renal calculi are identified. Bowel: There are no transition zones indicate bowel obstruction. There is colonic diverticulosis. There are no acute peridiverticular inflammatory changes. There are no findings to indicate acute appendicitis. Peritoneum: There is no intraperitoneal free air or abdominal ascites. Dystrophic type calcifications are again visualized in the left paracolic gutter. Vasculature: The abdominal aorta is normal in course and caliber. Adenopathy: None. Pelvic viscera: The uterus appears surgically absent. Skeletal structures: There are advanced degenerative changes present within the lumbar spine. There is severe spinal stenosis. IMPRESSION: 1. No evidence of bowel obstruction. No evidence of free air 2. Diverticulosis. No evidence of acute diverticulitis 3. Cholelithiasis 4. No renal, ureteral, or bladder calculi identified 5. Degenerative changes present within the spine. Large calcified disc fragment at the L2-3 level. Severe spinal stenosis. 6. Hiatal hernia Electronically signed by: Mikal Jasso M.D. 03/11/2017 4:25 PM Dictated Date/Time: 03/11/2017 4:20 PM Laboratory Results 03/11/17 15:55 Red Blood Count 5.06, Mean Corpuscular Volume 88.9, Mean Corpuscular Hemoglobin 30.4, Mean Corpuscular Hemoglobin Concent 34.2, Mean Platelet Volume 9.0, Neutrophils (%) (Auto) 74.2, Lymphocytes (%) (Auto) 13.5, Monocytes (%) (Auto) 10.1, Eosinophils (%) (Auto) 1.3, Basophils (%) (Auto) 0.1, Neutrophils # (Auto ) 6.30, Lymphocytes # (Auto) 1.15, Monocytes # (Auto) 0.86, Eosinophils # (Auto ) 0.11, Basophils # (Auto) 0.01 03/11/17 15:55 Test 03/11/17 15:55 03/11/17 17:41 White Blood Count 8.50 K/uL (4.8-10.8) Red Blood Count 5.06 M/uL (4.2-5.4) Hemoglobin 15.4 g/dL (12.0-16.0) Hematocrit 45.0 % (37-47) Mean Corpuscular Volume 88.9 fL (80-100) Mean Corpuscular Hemoglobin 30.4 pg (25-34) Mean Corpuscular Hemoglobin Concent 34.2 g/dl (32-36) Platelet Count 198 K/uL (130-400) Mean Platelet Volume 9.0 fL (7.4-10.4) Neutrophils (%) (Auto) 74.2 % Lymphocytes (%) (Auto) 13.5 % Monocytes (%) (Auto) 10.1 % Eosinophils (%) (Auto) 1.3 % Basophils (%) (Auto) 0.1 % Neutrophils # (Auto) 6.30 K/uL (1.4-6.5) Lymphocytes # (Auto) 1.15 K/uL (1.2-3.4) Monocytes # (Auto) 0.86 K/uL (0.11-0.59) Eosinophils # (Auto) 0.11 K/uL (0-0.5) Basophils # (Auto) 0.01 K/uL (0-0.2) RDW Standard Deviation 43.2 fL (36.4-46.3) RDW Coefficient of Variation 13.2 % (11.5-14.5) Immature Granulocyte % (Auto) 0.8 % Immature Granulocyte # (Auto) 0.07 K/uL (0.00-0.02) Anion Gap 8.0 mmol/L (3-11) Est Creatinine Clear Calc Drug Dose 26.3 ml/min Estimated GFR () 36.4 Estimated GFR (Non- 31.4 BUN/Creatinine Ratio 21.9 (10-20) Calcium Level 8.9 mg/dl (8.5-10.1) Total Bilirubin 0.9 mg/dl (0.2-1) Direct Bilirubin 0.4 mg/dl (0-0.2) Aspartate Amino Transf (AST/SGOT) 24 U/L (15-37) Alanine Aminotransferase (ALT/SGPT) 16 U/L (12-78) Alkaline Phosphatase 82 U/L (45-117) Total Protein 6.6 gm/dl (6.4-8.2) Albumin 3.0 gm/dl (3.4-5.0) Lipase 298 U/L (73-393) Laboratory results reviewed by me Medications Administered Medications (Trade) Dose Ordered Sig/Fab Route Start Time Stop Time Status Last Admin Dose Admin Sodium Chloride 1,000 ml @ 125 mls/hr Q8H STAT IV 03/11/17 15:25 03/11/17 23:24 03/11/17 15:25 125 MLS/HR Sodium Chloride 500 ml @ 999 mls/hr Q31M STAT IV 8/9/17 15:36 03/11/17 16:06 DC 03/11/17 16:08 999 MLS/HR Ondansetron HCl (Zofran 8mg Iv) 8 mg NOW STAT IV 03/11/17 15:36 03/11/17 15:38 DC 03/11/17 16:07 8 MG ED Course 1524: The patient was evaluated in room B3. A complete history and physical exam was performed. 1525: Sodium Chloride 1000 ml @ 125 mls/hr IV. 1536: Zofran 8mg IV, Sodium Chloride 500 ml @ 999 mls/hr IV. 1638: I reevaluated and updated the patient. 165: Discussed the patient's case with Dr. Hidalgo. The patient will be evaluated for further treatment and disposition. 1712: Upon reexamination, the patient was doing well. I discussed the test results and treatment plan with the patient. The patient will be evaluated for further management. Medical Decision Triage Nursing notes reviewed. The patient's presentation and history were concerning for vomiting and abdominal pain. Etiologies such as dehydration, appendicitis, diverticulitis, obstruction, inflammatory bowel disease, renal colic, PUD, biliary pathology, pancreatitis, mesenteric ischemia, aortic pathology, infections, genitourinary, UTI, perforated viscus, as well as others were entertained. Patient was evaluated. She was hydrated. She is given Zofran. She declined analgesia. Blood work, urinalysis and imaging were ordered. CT scan was unremarkable as above. The patient had hyponatremia and mild RITA on chemistry panel. She was experiencing hyponatremia. Urinalysis is pending. The patient will need further evaluation and management in the hospital. I did consult the [facility] Hospitalist service. The patient and daughter updated. Patient was evaluated in the Emergency Room for further treatment. Medication Reconcilliation Current Medication List: was personally reviewed by me Blood Pressure Screening Patient's blood pressure: Normal blood pressure Blood pressure disposition: Did not require urgent referral Consults Time Called: 1654 Consulting Physician: Dr. Hidalgo Returned Call: [phone] Discussed the patient's case with Dr. Hidalgo. The patient will be evaluated for further treatment and disposition. Impression Primary Impression: Hyponatremia Additional Impression: Vomiting Scribe Attestation The scribe's documentation has been prepared under my direction and personally reviewed by me in its entirety. I confirm that the note above accurately reflects all work, treatment, procedures, and medical decision making performed by me. Departure Information Dispostion Being Evaluated By Hospitalist Referrals Markell Kline M.D. (PCP) Patient Instructions My [facility] Problem Qualifiers"
[2017-03-11 16:10] LABS: BASO % 0.1 %; BASO ABS # 0.01 K/uL (0-0.2); COMPLETE YES; EOS % 1.3 %; IG% 0.8 %; LYMPH % 13.5 %; LYMPH ABS # 1.15 K/uL (1.2-3.4); MEAN CELL VOLUME 88.9 fL (80-100); MEAN CORPUSCULAR HEMOGLOBIN 30.4 pg (25-34); MEAN CORPUSCULAR HGB CONC 34.2 g/dl (32-36); MONO % 10.1 %; NEUT % 74.2 %; PLATELET COUNT 198 K/uL (130-400); RED BLOOD COUNT 5.06 M/uL (4.2-5.4)
[2017-03-11 16:24] LABS: BUN/CREATININE RATIO 21.9 (10-20); CALCIUM 8.9 mg/dl (8.5-10.1); CREATININE 1.6 mg/dl (0.60-1.20); POTASSIUM 3.4 mmol/L (3.5-5.1)
--- NOTE | 2017-03-11 16:26 | DIAGNOSTIC IMAGING REPORT ---
CT SCAN OF THE ABDOMEN AND PELVIS WITHOUT CONTRAST CLINICAL HISTORY: lower abdominal pains, vomiting COMPARISON STUDY: 12/26/2016 TECHNIQUE: CT scan of the abdomen and pelvis was performed from the lung bases to the proximal femurs. Images are reviewed in the axial, sagittal, and coronal planes. IV contrast was not administered for this examination. A dose lowering technique was utilized adhering to the principles of ALARA. CT DOSE: 848.82 mGy.cm FINDINGS: Lower chest: There is a hiatal hernia. Liver: The unenhanced liver is normal in size, contour, and attenuation. There is no intrahepatic biliary ductal dilatation. Gallbladder: Cholelithiasis Spleen: Normal in size and attenuation. Pancreas: Unremarkable. Adrenal glands: Unremarkable. Kidneys: The unenhanced kidneys are normal in size without hydronephrosis. There is no contour deforming renal mass lesion. No renal calculi are identified. Bowel: There are no transition zones indicate bowel obstruction. There is colonic diverticulosis. There are no acute peridiverticular inflammatory changes. There are no findings to indicate acute appendicitis. Peritoneum: There is no intraperitoneal free air or abdominal ascites. Dystrophic type calcifications are again visualized in the left paracolic gutter. Vasculature: The abdominal aorta is normal in course and caliber. Adenopathy: None. Pelvic viscera: The uterus appears surgically absent. Skeletal structures: There are advanced degenerative changes present within the lumbar spine. There is severe spinal stenosis. IMPRESSION: 1. No evidence of bowel obstruction. No evidence of free air 2. Diverticulosis. No evidence of acute diverticulitis 3. Cholelithiasis 4. No renal, ureteral, or bladder calculi identified 5. Degenerative changes present within the spine. Large calcified disc fragment at the L2-3 level. Severe spinal stenosis. 6. Hiatal hernia Electronically signed by: Mikal Jasso M.D. 03/11/2017 4:25 PM Dictated Date/Time: 03/11/2017 4:20 PM
[2017-03-11] MEDS ORDERED: D5W AND NSS 1,000 ML IV SCH (18:45)
[2017-03-11] MEDS ORDERED: MoRPHine SULFATE 2 MG/ML CARP IV PRN (18:45)
[2017-03-11 18:47] LABS: URINE APPEARANCE CLEAR (CLEAR); URINE BILIRUBIN NEG (NEG); URINE COLOR DK YELLOW; URINE EPITHELIAL CELL AUTO 0-5 /lpf (0-5); URINE NITRITE POS (NEG); URINE PH 6.5 (4.5-7.5); URINE SPECIFIC GRAVITY 1.013 (1.000-1.030); UROBILINOGEN NEG (NEG)
[2017-03-11] MEDS ORDERED: ACETAMINOPHEN 325 MG TAB PO PRN (19:00)
[2017-03-11] MEDS ORDERED: ONDANSETRON INJ 2 MG/ML 2 ML VIAL IV PRN (19:00)
[2017-03-11 19:04] LABS: MANUAL MICROSCOPIC REQUIRED? NO; REVIEW REQ? NO
--- NOTE | 2017-03-11 19:14 | History and Physical ---
"History & Physical Date & Time of Service: Mar 11, 2017 at 18:58 Chief Complaint: Weak, Vomiting Up Green, Abd. Pains Primary Care Physician: Markell Kline M.D. History of Present Illness Source: patient, family 76 year old female with history of DM, HTN, Hypothyroidism, CKD 3, PMR on chronic Prednisone, presenting with nausea/vomiting, and abdominal x 5 days. Patient was at her baseline health until 5 days ago when she started to have central abdominal pain, crampy, associated with nausea and vomiting. She cannot keep anything down and vomits food/liquids immediately after eating. Denies constipation/diarrhea. She also started to have dysuria , lower abdominal pain, foul smelling urine about 2 days ago. She was then brought to the ER for further evaluation. CT abdomen: hiatal hernia, cholelithiasis Crea 1.6, Na 126 Patient was seen with daughter Latonya at the bedside. Reports feeling slightly better after being given Zofran and IV fluids. Denies headache, dizziness, chest pain, dyspnea. No other symptoms. Had a long discussion with patient and daughter (spent 1 hour with them at the ER room b3). Initially, patient would like to go home, she then decided to stay for further work up and management. Past Medical/Surgical History Medical Problems: (1) CKD (chronic kidney disease), stage III Status: Chronic (2) Depression Status: Chronic (3) Diabetes mellitus type 2, diet-controlled Status: Chronic (4) Diabetic neuropathy Status: Chronic (5) Dyslipidemia Status: Chronic (6) Gastric ulcer Status: Chronic (7) HTN (hypertension) Status: Chronic (8) Hypothyroid Status: Chronic (9) KENIA (iron deficiency anemia) Status: Chronic (10) Osteoarthritis Status: Chronic (11) Rectal prolapse Permanent Comment: s/p repair Status: Chronic (12) Rectocele Permanent Comment: s/p repair Status: Chronic Surgical Problems: (1) H/O shoulder surgery Status: Chronic (2) H/O umbilical hernia repair Status: Chronic Family History Diabetes mellitus FATHER SISTER FH: CAD (coronary artery disease) MOTHER Stroke BROTHER Social History Smoking Status: Former Smoker Drug Use: none Marital Status: Occupational Status: retired Immunizations History of Influenza Vaccine: Yes Influenza Vaccine Date: Apr 29, 2016 History of Tetanus Vaccine?: Yes Tetanus Immunization Date: Feb 29, 2008 History of Pneumococcal: Yes Pneumococcal Date: Apr 29, 2016 Multi-Drug Resistant Organisms History of MDRO: No Allergies Coded Allergies: Gabapentin (Verified Allergy, Severe, MOUTH SWELLS, 03/11/17) Pregabalin (Verified Allergy, Severe, MOUTH SWELLS, 03/11/17) Home Medications Scheduled Clopidogrel Bisulfate (Clopidogrel), 75 MG PO DAILY Docusate Sodium (Docusate Sodium), 100 MG PO BID Ferrous Sulfate (Ferrous Sulfate), 325 MG PO DAILY Furosemide (Lasix), 20 MG PO QAM Latanoprost (Xalatan 0.005% Oph Chanelle), 1 DROP OPB BID Levothyroxine Sodium (Synthroid), 75 MCG PO QAM Lidocaine Hcl (Mouth-Throat) (Lidocaine Hcl), 2 TBS PO UD Lisinopril (Lisinopril), 10 MG PO BID Loratadine (Claritin), 10 MG PO HS Magnesium Oxide (mg Supplement (Magnesium Oxide), 400 MG PO BID Multivitamins/Minerals (Mvi With Minerals), 1 TAB PO DAILY Oxycodone HCl (Oxycodone HCl ER), 30 MG PO Q12 Pantoprazole (Pantoprazole Sodium), 40 MG PO DAILY Polyethylene Glycol 3350 (Miralax), 17 GM PO DAILY Prednisone (Prednisone), 5 MG PO QAM Ranitidine HCl (Ranitidine HCl), 150 MG PO HS Riboflavin (B2), 100 MG PO DAILY Senna (Senna Lax), 8.6 MG PO QAM Sennosides-Docusate Sodium (Stool Softener), 1 TAB PO QAM Simvastatin (Zocor), 20 MG PO HS Venlafaxine Hcl (Effexor Extended Rel), 150 MG PO DAILY Vitamin E (E-400), 1 TAB PO QAM Scheduled PRN Acetaminophen (Tylenol), 1,000 MG PO BID PRN for Pain or Fever Fluocinolone Acetonide (Fluocinolone Acetonide), 1 APPLN TOP BID PRN for rash Fluticasone Propionate (Nasal) (Flonase Allergy Relief), 1 SPRAY FELIPE QAM PRN for Nasal Congestion Lactulose (Lactulose), 30 ML PO TID PRN for Constipation Magic Swizzle (Magic Swizzle - SUCRALFA/ALUM/MAG/DIPHEN/LIDO), 3-4 TSP PO Q4-6H PRN for MOUTH ULCERS Meclizine HCl (Meclizine HCl), 12.5 MG PO BID PRN for severe vertigo (spinning) Nystatin (Topical) (Nystatin), 1 APPL TOP UD PRN for RASH Nystatin/Triamcinolone (Mycolog ||), 1 APPL TOP UD PRN for rash Simethicone (Gas-X), 80 MG PO QID PRN for GAS Review of Systems Constitutional- no fever; no weight loss Eyes- no acute visual changes ENT- no sinus drainage; no pharyngitis Pulmonary- no cough, no wheezing, no shortness of breath Cardiac- no chest pain, no palpitations, no orthopnea, no dependent edema GI- (+) as noted above - (+) as noted above Musculoskeletal- no arthralgias, no myalgias Derm- no rashes, no new skin lesions, no changing skin lesions Hematologic- no unusual bruising, no unusual bleeding Lymphatics- no adenopathy Endocrine- no polyuria or polydipsia; no heat or cold intolerance Neuro- no headaches, no focal neurologic symptoms Psych- no anxiety, no depression Physical Exam Vital Signs Date Time Temp Pulse Resp B/P (MAP) Pulse Ox O2 Delivery O2 Flow Rate FiO2 03/11/17 18:39 84 20 146/97 96 Room Air 03/11/17 16:22 79 18 128/85 95 Room Air 03/11/17 15:15 36.4 93 16 124/76 91 Room Air General Appearance: WD/WN, no apparent distress Head: normocephalic, atraumatic Eyes: normal inspection, EOMI, sclerae normal ENT: normal ENT inspection, hearing grossly normal Neck: supple, no adenopathy, thyroid normal, no JVD, trachea midline Respiratory/Chest: chest non-tender, lungs clear, normal breath sounds, no respiratory distress, no accessory muscle use Cardiovascular: regular rate, rhythm, no edema, no gallop, no JVD, no murmur, normal peripheral pulses Abdomen/GI: normal bowel sounds, + pertinent finding (mild tenderness epigastric region and suprapubic region) Back: normal inspection, no CVA tenderness Extremities/Musculoskelatal: normal inspection, no calf tenderness, no pedal edema Neurologic/Psych: assignment manager II-XII nml as tested, no motor/sensory deficits, alert, normal mood/affect, oriented x 3 Skin: normal color, warm/dry, no rash Lymphatic: no adenopathy Diagnostics Laboratory Results Results Past 24 Hours Test 03/11/17 15:55 03/11/17 17:41 03/11/17 18:42 Range/Units White Blood Count 8.50 4.8-10.8 K/uL Red Blood Count 5.06 4.2-5.4 M/uL Hemoglobin 15.4 12.0-16.0 g/dL Hematocrit 45.0 37-47 % Mean Corpuscular Volume 88.9 80-100 fL Mean Corpuscular Hemoglobin 30.4 25-34 pg Mean Corpuscular Hemoglobin Concent 34.2 32-36 g/dl Platelet Count 198 130-400 K/uL Mean Platelet Volume 9.0 7.4-10.4 fL Neutrophils (%) (Auto) 74.2 % Lymphocytes (%) (Auto) 13.5 % Monocytes (%) (Auto) 10.1 % Eosinophils (%) (Auto) 1.3 % Basophils (%) (Auto) 0.1 % Neutrophils # (Auto) 6.30 1.4-6.5 K/uL Lymphocytes # (Auto) 1.15 1.2-3.4 K/uL Monocytes # (Auto) 0.86 0.11-0.59 K/uL Eosinophils # (Auto) 0.11 0-0.5 K/uL Basophils # (Auto) 0.01 0-0.2 K/uL RDW Standard Deviation 43.2 36.4-46.3 fL RDW Coefficient of Variation 13.2 11.5-14.5 % Immature Granulocyte % (Auto) 0.8 % Immature Granulocyte # (Auto) 0.07 0.00-0.02 K/uL Sodium Level 126 136-145 mmol/L Potassium Level 3.4 3.5-5.1 mmol/L Chloride Level 83 98-107 mmol/L Carbon Dioxide Level 35 21-32 mmol/L Anion Gap 8.0 3-11 mmol/L Blood Urea Nitrogen 35 7-18 mg/dl Creatinine 1.60 0.60-1.20 mg/dl Est Creatinine Clear Calc Drug Dose 26.3 ml/min Estimated GFR () 36.4 Estimated GFR (Non- 31.4 BUN/Creatinine Ratio 21.9 10-20 Random Glucose 99 70-99 mg/dl Calcium Level 8.9 8.5-10.1 mg/dl Total Bilirubin 0.9 0.2-1 mg/dl Direct Bilirubin 0.4 0-0.2 mg/dl Aspartate Amino Transf (AST/SGOT) 24 15-37 U/L Alanine Aminotransferase (ALT/SGPT) 16 12-78 U/L Alkaline Phosphatase 82 45-117 U/L Total Protein 6.6 6.4-8.2 gm/dl Albumin 3.0 3.4-5.0 gm/dl Lipase 298 73-393 U/L Diagnostic Radiology CT abdomen: 1. No evidence of bowel obstruction. No evidence of free air 2. Diverticulosis. No evidence of acute diverticulitis 3. Cholelithiasis 4. No renal, ureteral, or bladder calculi identified 5. Degenerative changes present within the spine. Large calcified disc fragment at the L2-3 level. Severe spinal stenosis. 6. Hiatal hernia Impression Assessment and Plan 76 year old female with history of DM, HTN, Hypothyroidism, CKD 3, PMR on chronic Prednisone, presenting with nausea/vomiting, and abdominal x 5 days. INTRACTABLE NAUSEA/VOMITING, ABDOMINAL PAIN LIKELY FROM HIATAL HERNIA VS. PEPTIC ULCER DISEASE - last EGD 05/06/16: moderate hiatal hernia, ulcer pre-pyloric antrum - NPO except ice chips/sips Protonix IV D5NSS GI consult for possible repeat EGD PRN zofran HYPONATREMIA - D5NSS ordered - Na q4h - do not exceed correction more than 134 in 24 hours ACUTE RENAL FAILURE ON CKD 3 - from pre renal most likely - on D5nSS monitor HYPOKALEMIA - from gi losses - IV K ordered HTN - hold Lisinopril HYPOTHYROIDISM - hold PO Levo PMR - on chronic prednisone - may need IV steroids if kept NPO will convert Oxy to Morphine TIA HISTORY - hold Plavix Level 3 as per daughter DVT prophylaxis SCDs Dispo pending anticipate d/c home when medically stable Case discussed extensively with patient and her daughter Latonya spent 1 hour with them at the ER answered all their questions the best I can they verbalized full agreement and are comfortable with the plan of care VTE Prophylaxis VTE Risk Assessment Done? Y/N: Yes Risk Level: Moderate Given or contraindicated: SCD's"
[2017-03-11] MEDS ORDERED: PANTOprazole INJ 40 MG in SYRINGE 0 ML IV ONE (19:30)
[2017-03-11] MEDS: POTASSIUM CHLR 10 MEQ / WTR 10 MEQ in PREMIXED WATER 100 ML IV SCH ×2 (19:48→21:15)
[2017-03-11 19:59] VITALS: BP 134/77; PULSE 116; TEMP 36.4; O2SAT 92
[2017-03-11 20:33] LABS: BUN/CREATININE RATIO 25.3 (10-20); CALCIUM 8.4 mg/dl (8.5-10.1); CREATININE 1.2 mg/dl (0.60-1.20); MAGNESIUM 1.8 mg/dl (1.8-2.4); POTASSIUM 3.3 mmol/L (3.5-5.1)
[2017-03-11 20:46] VITALS: BP 134/77; PULSE 116; TEMP 36.4; O2SAT 96; Ht 152.4 cm; Wt 67.5 kg
[2017-03-11] MEDS: CEFTRIAXONE SOD INJ 1 GM in DEXTROSE 5% ADD-VANTAGE 50ML 50 ML IV SCH (22:14)
[2017-03-12] VITALS (8 sets, daily range): BP systolic 128–154; BP diastolic 77–96; PULSE 84–100; TEMP 35.9–36.8; O2SAT 93–97
[2017-03-12 00:47] LABS: BUN/CREATININE RATIO 22.9 (10-20); CALCIUM 8.3 mg/dl (8.5-10.1); CREATININE 1.3 mg/dl (0.60-1.20); POTASSIUM 3.7 mmol/L (3.5-5.1)
[2017-03-12 04:37] LABS: BASO % 0.3 %; BASO ABS # 0.02 K/uL (0-0.2); COMPLETE YES; EOS % 2.7 %; HEMATOCRIT 40.1 % (37-47); IG% 0.6 %; LYMPH % 18.6 %; LYMPH ABS # 1.31 K/uL (1.2-3.4); MEAN CELL VOLUME 90.3 fL (80-100); MEAN CORPUSCULAR HEMOGLOBIN 30.9 pg (25-34); MEAN CORPUSCULAR HGB CONC 34.2 g/dl (32-36); MONO % 8.1 %; NEUT % 69.7 %; PLATELET COUNT 160 K/uL (130-400); RED BLOOD COUNT 4.44 M/uL (4.2-5.4); WHITE BLOOD COUNT 7.06 K/uL (4.8-10.8)
[2017-03-12 05:05] LABS: BUN/CREATININE RATIO 24.7 (10-20); CALCIUM 8.3 mg/dl (8.5-10.1); CREATININE 1.1 mg/dl (0.60-1.20); POTASSIUM 3.4 mmol/L (3.5-5.1)
--- NOTE | 2017-03-12 07:12 | Clinical Documentation Query ---
CLINICAL DOCUMENTATION QUERY Dr. HARRISON, In your clinical opinion is this patient being managed for: ( ) suspected UTI ( ) Other explanation of clinical findings (Please Explain) ( ) Unable to determine (Please Define) ( ) Need to Discuss ( ) Not Agree The medical record reflects the following clinical findings, treatment, and risk factors. Clinical Indicators:76 yo female presenting with lower abd pain, vomiting, dysuria and foul smelling urine. UA with large LE, >30 WBC, +1 bacteria Treatment: pending UA cx, IV fluids, IV rocephin Risk Factors: age, gender, DM, RITA, chronic steroid therapy Please clarify and document your clinical opinion in the progress notes and discharge summary. Terms such as "probable", "suspected", "likely", "questionable", "possible", or "still to be ruled out" are acceptable. IF IN AGREEMENT, YOU MUST DOCUMENT ABOVE DIAGNOSTIC STATEMENT IN DAILY PROGRESS NOTES AND DISCHARGE SUMMARY. This document is not part of the patient's record. Thank You, Laila Dorantes RN [phone]
--- NOTE | 2017-03-12 08:22 | Gastrointestinal Consultation ---
"Gastrointestinal Consultation Date of Consultation: Mar 12, 2017 Attending Physician: Josefina Consulting Physician: Shannan Reason for Consultation: nausea, vomiting, EGD History of Present Illness Patient is a 76 year old female w/ history of T2DM, hiatal hernia and others listed below who presented to the ED for evaluation of intractable nausea and vomiting x 4 days. Pt was seen and evaluated this AM. Daughter is at bedside. She has been NPO. Pt tells me she has intermittent flare of upper abdominal pain , explained as a burning, that is associated with nausea. There are no known triggers to this pain. This was specifically worse the past few days and was accompanied by vomtiing. Emesis was green, denies any black or bloody output. She does not that her stools have been looser and black, but she is on PO iron. No sticky stools. No BRBPR. She had an EGD last year with hiatal hernia and a small non-bleeding ulcer in the antrum. She denies any weight loss. No sick contacts. No fever, chills, chest pain, SOB. H&H stable. LFTs and lipase unremarkable. She has not had any nausea or vomiting since yesterday. Minimal abdominal pain this AM. No NSAIDs use, No ETOH use, No caffeine use CT ABD/pelvis: No evidence of bowel obstruction. No evidence of free air. Diverticulosis. No evidence of acute diverticulitis Cholelithiasis No renal, ureteral, or bladder calculi identified Degenerative changes present within the spine. Large calcified disc fragment at the L2-3 level. Severe spinal stenosis. Hiatal hernia Past Medical/Surgical History Medical Problems: (1) Acute kidney injury Status: Acute (2) Constipation Status: Acute (3) Hypomagnesemia Status: Acute (4) Hyponatremia Status: Acute (5) Non-STEMI (non-ST elevated myocardial infarction) Status: Acute (6) Vomiting Status: Acute (7) Weakness Status: Acute Past Medical History: chronic kidney disease, depression, diabetes, diabetic neuropathy, dyslipidemia , hypertension, hypothyroidism, iron deficiency, osteoarthritis, rectal prolapse , rectocele, hiatal hernia, gastric ulcer Past Surgical History: EGD, colonoscopy, shoulder repair, hernia repair Family History Diabetes mellitus FATHER SISTER FH: CAD (coronary artery disease) MOTHER Stroke BROTHER Social History Smoking Status: Never Smoker Drug Use: none Marital Status: Housing Status: lives with significant other Occupation Status: retired Allergies Coded Allergies: Gabapentin (Verified Allergy, Severe, MOUTH SWELLS, 03/11/17) Pregabalin (Verified Allergy, Severe, MOUTH SWELLS, 03/11/17) Current Medications Home Meds and Scripts Medications Dose Route/Sig Max Daily Dose Days Date Category Dose Instructions Tylenol (Acetaminophen) 500 Mg Tab 1,000 Mg PO BID PRN 03/11/17 Reported Ranitidine HCl 150 Mg Tab 150 Mg PO HS 01/15/17 Rx Take at bedtime. Lisinopril 10 Mg Tab 10 Mg PO BID 01/15/17 Rx New dose. 10 mg twice a day. Hold if systolic blood pressure is less than 120. Magnesium Oxide (Magnesium Oxide (mg Supplement) 400 Mg Cap 400 Mg PO BID 01/15/17 Rx Meclizine HCl 25 Mg Tab 12.5 Mg PO BID PRN 01/15/17 Rx Take 1/2 pill as needed for severe dizziness with spinning. No more than 2 doses a day. Clopidogrel (Clopidogrel Bisulfate) 75 Mg Tab 75 Mg PO DAILY 01/15/17 Rx Pantoprazole Sodium (Pantoprazole) 40 Mg Tab 40 Mg PO DAILY 01/15/17 Rx replaces omeprazole (Prilosec) B2 (Riboflavin) 100 Mg Tab 100 Mg PO DAILY 01/15/17 Rx No prescription necessary. Ferrous Sulfate 325 Mg Tab 325 Mg PO DAILY 01/15/17 Rx No prescription necessary. New dose- take 1 pill daily with lunch. Effexor Extended Rel (Venlafaxine Hcl) 150 Mg Cap 150 Mg PO DAILY 01/15/17 Reported Senna Lax (Senna) 8.6 Mg Tab 8.6 Mg PO QAM 30 12/30/16 Rx Docusate Sodium 100 Mg Cap 100 Mg PO BID 30 12/30/16 Rx Lactulose 20 Gm/30 Ml Syrp 30 Ml PO TID PRN 12/18/16 Reported Miralax (Polyethylene Glycol 3350) 1 Pow Pow 17 Gm PO DAILY 12/18/16 Reported Stool Softener (Sennosides-Docusate Sodium) 1 Tab Tab 1 Tab PO QAM 12/18/16 Reported Prednisone 5 Mg Tab 5 Mg PO QAM 12/18/16 Reported Mvi With Minerals (Multivitamins/Minerals) Tab 1 Tab PO DAILY 11/25/16 Reported Fluocinolone Acetonide Unknown Strength Cre 1 Appln TOP BID PRN 11/25/16 Reported Lidocaine Hcl (Lidocaine Hcl (Mouth-Throat)) 2 % Chanelle 2 Tbs PO UD 11/25/16 Reported COAT MOUTH ULCERS Gas-X (Simethicone) 80 Mg Chw 80 Mg PO QID PRN 11/25/16 Reported Oxycodone HCl ER (Oxycodone HCl) 30 Mg Tab 30 Mg PO Q12 11/25/16 Reported Mycolog || (Nystatin/Triamcinolone Acetonide) Cr 1 Appl TOP UD PRN 05/05/16 Reported Nystatin (Nystatin (Topical)) 1 Pow Pow 1 Appl TOP UD PRN 05/05/16 Reported Claritin (Loratadine) 10 Mg Tab 10 Mg PO HS 05/05/16 Reported E-400 (Vitamin E) 400 Unit Cap 1 Tab PO QAM 05/05/16 Reported Flonase Allergy Relief (Fluticasone Propionate (Nasal)) 50 Mcg/Act Spr 1 [place] FELIPE QAM PRN 05/05/16 Reported Magic Swizzle - SUCRALFA/ALUM/MAG/DIPHEN/LIDO (Magic Swizzle) 240 Ml Susp 3-4 Tsp PO Q4-6H PRN 05/05/16 Reported 100ml Sucralfate 50ml Maalox 50ml Diphenhydramine 40ml 2% Aq. Lidocaine Swish and Swallow Synthroid (Levothyroxine Sodium) 75 Mcg Tab 75 Mcg PO QAM 09/14/14 Reported Xalatan 0.005% Oph Chanelle (Latanoprost) 0.005 % Chanelle 1 Drop OPB BID 07/30/12 Reported Lasix (Furosemide) 20 Mg Tab 20 Mg PO QAM 07/30/12 Reported Zocor (Simvastatin) 20 Mg Tab 20 Mg PO HS 04/22/10 Reported Review of Systems Constitutional: No fever, No chills Respiratory: No cough, No shortness of breath Cardiac: No chest pain Abdomen: + pain, No nausea, No vomiting, No diarrhea, No constipation, No GI bleeding Physical Exam Date Time Temp Pulse Resp B/P (MAP) Pulse Ox O2 Delivery O2 Flow Rate FiO2 03/12/17 04:00 36.8 84 20 146/77 (100) 93 Room Air 03/12/17 04:00 Room Air 03/12/17 01:57 Room Air 03/12/17 00:22 35.9 20 128/84 (99) 95 Room Air 03/11/17 20:46 36.4 116 17 134/77 96 Room Air 03/11/17 19:59 36.4 116 17 134/77 (96) 92 Room Air 03/11/17 18:39 84 20 146/97 96 Room Air 03/11/17 16:22 79 18 128/85 95 Room Air 03/11/17 15:15 36.4 93 16 124/76 91 Room Air General Appearance: no apparent distress (daughter at bedside, she is aiding in history) Eyes: PERRL ENT: hearing grossly normal Neck: supple Respiratory/Chest: lungs clear, normal breath sounds Cardiovascular: regular rate, rhythm, no edema Abdomen: normal bowel sounds, soft, no organomegaly, no pulsatile mass, + tenderness (minimal pain with palpation at epigastric location) Neurologic/Psych: alert, normal mood/affect, oriented x 3 Skin: normal color, no jaundice Laboratory Results Last 24 Hours Test 03/11/17 15:55 03/11/17 17:41 03/11/17 19:50 03/12/17 00:13 White Blood Count 8.50 K/uL Red Blood Count 5.06 M/uL Hemoglobin 15.4 g/dL Hematocrit 45.0 % Mean Corpuscular Volume 88.9 fL Mean Corpuscular Hemoglobin 30.4 pg Mean Corpuscular Hemoglobin Concent 34.2 g/dl Platelet Count 198 K/uL Mean Platelet Volume 9.0 fL Neutrophils (%) (Auto) 74.2 % Lymphocytes (%) (Auto) 13.5 % Monocytes (%) (Auto) 10.1 % Eosinophils (%) (Auto) 1.3 % Basophils (%) (Auto) 0.1 % Neutrophils # (Auto) 6.30 K/uL Lymphocytes # (Auto) 1.15 K/uL Monocytes # (Auto) 0.86 K/uL Eosinophils # (Auto) 0.11 K/uL Basophils # (Auto) 0.01 K/uL RDW Standard Deviation 43.2 fL RDW Coefficient of Variation 13.2 % Immature Granulocyte % (Auto) 0.8 % Immature Granulocyte # (Auto) 0.07 K/uL Sodium Level 126 mmol/L 132 mmol/L Potassium Level 3.4 mmol/L 3.3 mmol/L Chloride Level 83 mmol/L 91 mmol/L Carbon Dioxide Level 35 mmol/L 34 mmol/L Anion Gap 8.0 mmol/L 7.0 mmol/L Blood Urea Nitrogen 35 mg/dl 30 mg/dl Creatinine 1.60 mg/dl 1.20 mg/dl Est Creatinine Clear Calc Drug Dose 26.3 ml/min 35.1 ml/min Estimated GFR () 36.4 51.6 Estimated GFR (Non- 31.4 44.5 BUN/Creatinine Ratio 21.9 25.3 Random Glucose 99 mg/dl 58 mg/dl Calcium Level 8.9 mg/dl 8.4 mg/dl Total Bilirubin 0.9 mg/dl Direct Bilirubin 0.4 mg/dl Aspartate Amino Transf (AST/SGOT) 24 U/L Alanine Aminotransferase (ALT/SGPT) 16 U/L Alkaline Phosphatase 82 U/L Total Protein 6.6 gm/dl Albumin 3.0 gm/dl Lipase 298 U/L Urine Color DK YELLOW Urine Appearance CLEAR Urine pH 6.5 Urine Specific [place] 1.013 Urine Protein TRACE Urine Glucose (UA) NEG Urine Ketones NEG Urine Occult Blood TRACE Urine Nitrite POS Urine Bilirubin NEG Urine Urobilinogen NEG Urine Leukocyte Esterase LARGE Urine WBC (Auto) >30 /hpf Urine RBC (Auto) 0-4 /hpf Urine Hyaline Casts (Auto) 1-5 /lpf Urine Epithelial Cells (Auto) 0-5 /lpf Urine Bacteria (Auto) 1+ Osmolality 272 mOsm/kg Magnesium Level 1.8 mg/dl Bedside Glucose 70 mg/dl Test 03/12/17 00:21 03/12/17 04:09 03/12/17 06:35 03/12/17 07:51 Sodium Level 133 mmol/L 133 mmol/L Potassium Level 3.7 mmol/L 3.4 mmol/L Chloride Level 92 mmol/L 95 mmol/L Carbon Dioxide Level 34 mmol/L 33 mmol/L Anion Gap 7.0 mmol/L 5.0 mmol/L Blood Urea Nitrogen 30 mg/dl 27 mg/dl Creatinine 1.30 mg/dl 1.10 mg/dl Est Creatinine Clear Calc Drug Dose 32.4 ml/min 38.3 ml/min Estimated GFR () 46.8 57.3 Estimated GFR (Non- 40.4 49.4 BUN/Creatinine Ratio 22.9 24.7 Random Glucose 79 mg/dl 80 mg/dl Calcium Level 8.3 mg/dl 8.3 mg/dl White Blood Count 7.06 K/uL Red Blood Count 4.44 M/uL Hemoglobin 13.7 g/dL Hematocrit 40.1 % Mean Corpuscular Volume 90.3 fL Mean Corpuscular Hemoglobin 30.9 pg Mean Corpuscular Hemoglobin Concent 34.2 g/dl Platelet Count 160 K/uL Mean Platelet Volume 9.0 fL Neutrophils (%) (Auto) 69.7 % Lymphocytes (%) (Auto) 18.6 % Monocytes (%) (Auto) 8.1 % Eosinophils (%) (Auto) 2.7 % Basophils (%) (Auto) 0.3 % Neutrophils # (Auto) 4.93 K/uL Lymphocytes # (Auto) 1.31 K/uL Monocytes # (Auto) 0.57 K/uL Eosinophils # (Auto) 0.19 K/uL Basophils # (Auto) 0.02 K/uL RDW Standard Deviation 43.8 fL RDW Coefficient of Variation 13.4 % Immature Granulocyte % (Auto) 0.6 % Immature Granulocyte # (Auto) 0.04 K/uL Urine Random Sodium 28 mEq/L Bedside Glucose 73 mg/dl Impression Patient is a 76 year old female with intermittent episodes of epigastric pain, nausea and vomiting with history of hiatal hernia and gastric ulcer on her last EGD. Her H&H, lipase and LFTs are within normal limits. No weight loss or early satiety. There is a question of black stools but she is on PO iron. There are gallstones on imaging, which have been present for quite some time from review of records. Hiatal hernia vs gastritis vs PUD vs gastroparesis vs biliary colic vs other Plan NPO EGD Consider upper GI series to stage hiatal hernia Consider gastric emptying scan given history of diabetes Additional recommendations pending result of EGD ATTESTATION: I have performed a history and physical examination of this patient and reviewed the electronic record. Specifically, on physical examination there is no abdominal tenderness. I have discussed the case with NILA Purcell. The above note reflects my findings, conclusions, and recommendations. Bart Campbell MD"
[2017-03-12 08:40] LABS: BUN/CREATININE RATIO 23.6 (10-20); CALCIUM 8.3 mg/dl (8.5-10.1); CREATININE 1.1 mg/dl (0.60-1.20); POTASSIUM 3.3 mmol/L (3.5-5.1)
[2017-03-12] MEDS: POTASSIUM CHLR 10 MEQ / WTR 10 MEQ in PREMIXED WATER 100 ML IV SCH ×2 (10:00→11:47)
[2017-03-12] MEDS ORDERED: PROPOFOL IV EMULSION 10 MG/ML 20 ML VIAL IV ONE (10:13)
[2017-03-12] MEDS ORDERED: LIDOCAINE HCL 2% 2 ML VIAL (20MG/ML) ONE (10:13)
--- NOTE | 2017-03-12 10:49 | GI REPORT ---
Procedure Date: 03/12/2017 10:20 AM Procedure: Upper GI endoscopy Indications: Dysphagia, Nausea, Weight loss Medicines: Propofol per Anesthesia Complications: No immediate complications. Estimated blood loss: None. Estimated Blood Loss: Estimated blood loss: none. Procedure: Pre-Anesthesia Assessment: - Prior to the procedure, a History and Physical was performed, and patient medications, allergies and sensitivities were reviewed. The patient's tolerance of previous anesthesia was reviewed. - ASA Grade Assessment: III - A patient with severe systemic disease. After obtaining informed consent, the endoscope was passed under direct vision. Throughout the procedure, the patient's blood pressure, pulse, and oxygen saturations were monitored continuously. The scope was introduced through the mouth, and advanced to the third part of the duodenum. Small bowel enteroscopy was deemed necessary. The upper GI endoscopy was accomplished with ease. The patient tolerated the procedure well. Findings: The examined esophagus was moderately tortuous. A guidewire was placed and the scope was withdrawn. Dilation was performed with an Russian dilator with no resistance at 45 Fr and 51 Fr. The Z-line was regular and was found 28 cm from the incisors. A large hiatus hernia was present. Patchy mildly erythematous mucosa was found in the entire examined stomach. Biopsies were taken with a cold forceps for Helicobacter pylori testing. The examined duodenum was normal. Biopsies for histology were taken with a cold forceps for evaluation of celiac disease. Verification of patient identification for the specimens was done by the physician and nurse using the patient's name, date and medical record number. Impression: - Tortuous esophagus. - Z-line regular, 28 cm from the incisors. - Large hiatus hernia. - Erythematous mucosa in the stomach. Biopsied. - Normal examined duodenum. Biopsied. Recommendation: - Return [facility] to [facility] for [facility] care. Bart Campbell M.D. Bart Campbell MD 03/12/2017 10:48:18 AM This report has been signed electronically. Note Initiated On: 03/12/2017 10:20 AM I attest to the content of the Intraoperative Record and orders documented therein, exceptions below
[2017-03-12] MEDS ORDERED: EpHEDrine SULFATE 50MG/5ML SYR ONE (11:00)
[2017-03-12] MEDS ORDERED: PANTOprazole INJ 40 MG in SYRINGE 0 ML IV SCH (11:00)
--- NOTE | 2017-03-12 11:21 | Anesthesiology Progress Note ---
Anesthesia Post Op Note Date & Time Mar 12, 2017 at 11:21 Vital Signs Pain Intensity: 0.0 Vital Signs Past 12 Hours Date Time Temp Pulse Resp B/P (MAP) Pulse Ox O2 Delivery O2 Flow Rate FiO2 03/12/17 11:07 72 20 140/61 (87) 100 Room Air 03/12/17 10:52 66 16 120/53 (75) 99 Room Air 03/12/17 09:00 36.7 86 16 135/89 (104) 97 Room Air 03/12/17 08:00 93 Room Air 03/12/17 04:00 36.8 84 20 146/77 (100) 93 Room Air 03/12/17 04:00 Room Air 03/12/17 01:57 Room Air 03/12/17 00:22 35.9 20 128/84 (99) 95 Room Air Notes Mental Status: alert / awake / arousable, participated in evaluation Pt Amnestic to Procedure: Yes Nausea / Vomiting: adequately controlled Pain: adequately controlled Airway Patency, RR, SpO2: stable & adequate BP & HR: stable & adequate Hydration State: stable & adequate Anesthetic Complications: no major complications apparent
[2017-03-12] MEDS ORDERED: VENLAFAXINE HCL XR 150 MG CAPXR PO SCH (11:30)
[2017-03-12] MEDS ORDERED: SENNA 8.6 MG TAB PO SCH (11:30)
[2017-03-12] MEDS ORDERED: POLYETHYLENE (MIRALAX) 17 GM PACK PO SCH (12:00)
[2017-03-12] MEDS ORDERED: LEVOTHYROXINE 75 MCG TAB PO ONE (12:00)
[2017-03-12] MEDS ORDERED: LISINOPRIL 10 MG TAB PO ONE (12:00)
[2017-03-12] MEDS ORDERED: OXYCODONE HCL 10 MG TABCR (OXYCONTIN) PO STA (12:44)
[2017-03-12] MEDS ORDERED: POTASSIUM CHLORIDE 10 MEQ TABCR PO ONE (14:00)
--- NOTE | 2017-03-12 14:29 | Progress Note ---
Medicine Progress Note Date & Time of Visit: Mar 12, 2017 at 14:20. Subjective patient seen resting in bed, daughter at bedside s/p egd states she feels better today tolerated clears lower abd pain is better denies chest pain, dyspnea, palpitations, dizziness no other symptoms Objective Last 8 Hrs Date Time Temp Pulse Resp B/P (MAP) Pulse Ox O2 Delivery O2 Flow Rate FiO2 03/12/17 12:00 96 Room Air 03/12/17 11:54 36.3 92 16 134/96 (109) 97 Room Air 03/12/17 11:26 36.7 79 20 134/99 (111) 100 Room Air 03/12/17 11:07 72 20 140/61 (87) 100 Room Air 03/12/17 10:52 66 16 120/53 (75) 99 Room Air 03/12/17 09:00 36.7 86 16 135/89 (104) 97 Room Air 03/12/17 08:00 93 Room Air Physical Exam: General-oriented x 3, not in distress, speaks in sentences with no effort Eyes- EOMI, anicteric Neck- supple, no JVD Lungs- clear breath sounds bilaterally Heart- regular rhythm; no murmur, normal rate Abdomen- normal bowel sounds, soft, nontender Extremities- no pretibial edema, no calf tenderness Neuro- alert, oriented x 3; no gross focal deficits Skin- warm & dry Laboratory Results: Last 24 Hours Test 03/11/17 15:55 03/11/17 17:41 03/11/17 19:50 03/12/17 00:13 White Blood Count 8.50 K/uL Red Blood Count 5.06 M/uL Hemoglobin 15.4 g/dL Hematocrit 45.0 % Mean Corpuscular Volume 88.9 fL Mean Corpuscular Hemoglobin 30.4 pg Mean Corpuscular Hemoglobin Concent 34.2 g/dl Platelet Count 198 K/uL Mean Platelet Volume 9.0 fL Neutrophils (%) (Auto) 74.2 % Lymphocytes (%) (Auto) 13.5 % Monocytes (%) (Auto) 10.1 % Eosinophils (%) (Auto) 1.3 % Basophils (%) (Auto) 0.1 % Neutrophils # (Auto) 6.30 K/uL Lymphocytes # (Auto) 1.15 K/uL Monocytes # (Auto) 0.86 K/uL Eosinophils # (Auto) 0.11 K/uL Basophils # (Auto) 0.01 K/uL RDW Standard Deviation 43.2 fL RDW Coefficient of Variation 13.2 % Immature Granulocyte % (Auto) 0.8 % Immature Granulocyte # (Auto) 0.07 K/uL Sodium Level 126 mmol/L 132 mmol/L Potassium Level 3.4 mmol/L 3.3 mmol/L Chloride Level 83 mmol/L 91 mmol/L Carbon Dioxide Level 35 mmol/L 34 mmol/L Anion Gap 8.0 mmol/L 7.0 mmol/L Blood Urea Nitrogen 35 mg/dl 30 mg/dl Creatinine 1.60 mg/dl 1.20 mg/dl Est Creatinine Clear Calc Drug Dose 26.3 ml/min 35.1 ml/min Estimated GFR () 36.4 51.6 Estimated GFR (Non- 31.4 44.5 BUN/Creatinine Ratio 21.9 25.3 Random Glucose 99 mg/dl 58 mg/dl Calcium Level 8.9 mg/dl 8.4 mg/dl Total Bilirubin 0.9 mg/dl Direct Bilirubin 0.4 mg/dl Aspartate Amino Transf (AST/SGOT) 24 U/L Alanine Aminotransferase (ALT/SGPT) 16 U/L Alkaline Phosphatase 82 U/L Total Protein 6.6 gm/dl Albumin 3.0 gm/dl Lipase 298 U/L Urine Color DK YELLOW Urine Appearance CLEAR Urine pH 6.5 Urine Specific [place] 1.013 Urine Protein TRACE Urine Glucose (UA) NEG Urine Ketones NEG Urine Occult Blood TRACE Urine Nitrite POS Urine Bilirubin NEG Urine Urobilinogen NEG Urine Leukocyte Esterase LARGE Urine WBC (Auto) >30 /hpf Urine RBC (Auto) 0-4 /hpf Urine Hyaline Casts (Auto) 1-5 /lpf Urine Epithelial Cells (Auto) 0-5 /lpf Urine Bacteria (Auto) 1+ Osmolality 272 mOsm/kg Magnesium Level 1.8 mg/dl Bedside Glucose 70 mg/dl Test 03/12/17 00:21 03/12/17 04:09 03/12/17 06:35 03/12/17 07:51 Sodium Level 133 mmol/L 133 mmol/L 133 mmol/L Potassium Level 3.7 mmol/L 3.4 mmol/L 3.3 mmol/L Chloride Level 92 mmol/L 95 mmol/L 94 mmol/L Carbon Dioxide Level 34 mmol/L 33 mmol/L 31 mmol/L Anion Gap 7.0 mmol/L 5.0 mmol/L 8.0 mmol/L Blood Urea Nitrogen 30 mg/dl 27 mg/dl 26 mg/dl Creatinine 1.30 mg/dl 1.10 mg/dl 1.10 mg/dl Est Creatinine Clear Calc Drug Dose 32.4 ml/min 38.3 ml/min 38.5 ml/min Estimated GFR () 46.8 57.3 57.3 Estimated GFR (Non- 40.4 49.4 49.4 BUN/Creatinine Ratio 22.9 24.7 23.6 Random Glucose 79 mg/dl 80 mg/dl 91 mg/dl Calcium Level 8.3 mg/dl 8.3 mg/dl 8.3 mg/dl White Blood Count 7.06 K/uL Red Blood Count 4.44 M/uL Hemoglobin 13.7 g/dL Hematocrit 40.1 % Mean Corpuscular Volume 90.3 fL Mean Corpuscular Hemoglobin 30.9 pg Mean Corpuscular Hemoglobin Concent 34.2 g/dl Platelet Count 160 K/uL Mean Platelet Volume 9.0 fL Neutrophils (%) (Auto) 69.7 % Lymphocytes (%) (Auto) 18.6 % Monocytes (%) (Auto) 8.1 % Eosinophils (%) (Auto) 2.7 % Basophils (%) (Auto) 0.3 % Neutrophils # (Auto) 4.93 K/uL Lymphocytes # (Auto) 1.31 K/uL Monocytes # (Auto) 0.57 K/uL Eosinophils # (Auto) 0.19 K/uL Basophils # (Auto) 0.02 K/uL RDW Standard Deviation 43.8 fL RDW Coefficient of Variation 13.4 % Immature Granulocyte % (Auto) 0.6 % Immature Granulocyte # (Auto) 0.04 K/uL Urine Random Sodium 28 mEq/L Bedside Glucose 73 mg/dl Test 03/12/17 08:14 03/12/17 11:51 Bedside Glucose 78 mg/dl 69 mg/dl Date/Time Source Procedure Growth Status 03/11/17 17:40 Urine,Catheterized Urine Culture - Preliminary Escherichia Coli Resulted Assessment & Plan 76 year old female with history of DM, HTN, Hypothyroidism, CKD 3, PMR on chronic Prednisone, presenting with nausea/vomiting, and abdominal x 5 days. INTRACTABLE NAUSEA/VOMITING, ABDOMINAL PAIN LIKELY FROM HIATAL HERNIA VS. PEPTIC ULCER DISEASE - last EGD 05/06/16: moderate hiatal hernia, ulcer pre-pyloric antrum - s/p EGD: large hiatal hernia, tortuous esophagus- dilated, gastritis - biopsy pending - tolerating clears advance to soft diet - continue PPI - may need gastric emptying study per gastro advised small frequent meals HYPONATREMIA - D5NSS ordered - Na improved from 126 to 133 d/c fluids ACUTE RENAL FAILURE ON CKD 3 - from pre renal most likely - crea improved from 1.6 to 1.1 after IV fluids HYPOKALEMIA - PO K ordered - repeat as outpatient HTN - resume lisinopril HYPOTHYROIDISM - resume PO Levo PMR - on chronic prednisone TIA HISTORY - hold Plavix today Level 3 as per daughter DVT prophylaxis SCDs Dispo anticipate d/c home later this afternoon Current Inpatient Medications: Current Inpatient Medications Medications (Trade) Dose Ordered Sig/Fab Route Start Time Stop Time Status Last Admin Dose Admin Pantoprazole Sodium 40 mg/ Syringe 10 ml @ 5 mls/min DAILY@11 IV 03/12/17 11:00 04/11/17 10:59 03/12/17 11:47 5 MLS/MIN Morphine Sulfate (MoRPHine SULFATE INJ) 2 mg Q6H PRN IV 03/11/17 18:45 03/25/17 18:44 Acetaminophen (Tylenol Tab) 650 mg Q4H PRN PO 03/11/17 19:00 04/10/17 18:59 Ondansetron HCl (Zofran Inj) 4 mg Q6H PRN IV 03/11/17 19:00 04/10/17 18:59 Miscellaneous Information (Order Awaiting Action) 1 ea QS N/A 03/12/17 08:00 04/11/17 07:59 Ceftriaxone Sodium 1 gm/ Dextrose 50 ml @ 100 mls/hr DAILY@1800 IV 03/11/17 19:45 03/16/17 19:44 03/11/17 22:14 100 MLS/HR Docusate Sodium (coLACE CAP) 100 mg BID PO 03/12/17 21:00 04/11/17 20:59 Ferrous Sulfate (Feosol Tab) 325 mg DAILY PO 03/13/17 09:00 04/12/17 08:59 Levothyroxine Sodium (Synthroid Tab) 75 mcg DAILYBB PO 03/13/17 06:30 04/12/17 06:29 Lisinopril (Zestril Tab) 10 mg BID PO 03/12/17 21:00 04/11/17 20:59 Loratadine (Claritin Tab) 10 mg HS PO 03/13/17 21:00 04/12/17 20:59 Multivitamins/ Minerals (Multivitamin W/ Minerals Tab) 1 tab DAILY PO 03/13/17 09:00 04/12/17 08:59 Prednisone (PredniSONE TAB) 5 mg QAM PO 03/13/17 09:00 04/12/17 08:59 Ranitidine HCl (zANTac TAB) 150 mg HS PO 03/12/17 21:00 04/11/17 20:59 Senna (Senokot Tab) 8.6 mg QAM PO 03/12/17 11:30 04/11/17 11:29 03/12/17 12:22 8.6 MG Senna/Docusate Sodium (Senokot S Tab) 1 tab QAM PO 03/13/17 09:00 04/12/17 08:59 Simvastatin (Zocor Tab) 20 mg HS PO 03/12/17 21:00 04/11/17 20:59 Venlafaxine HCl (effeXOR EXTENDED REL CAP) 150 mg DAILY PO 03/12/17 11:30 04/11/17 11:29 03/12/17 12:21 150 MG Magnesium Oxide (Mag-Ox Tab) 400 mg BID PO 03/12/17 21:00 04/11/17 20:59 Oxycodone HCl (Oxycontin Tab) 30 mg Q12 PO 03/12/17 21:00 04/11/17 20:59 Polyethylene (Miralax Powder Packet) 17 gm DAILY PO 03/12/17 12:00 04/11/17 11:59 03/12/17 12:13 17 GM
[2017-03-12] MEDS ORDERED: NURSING VERBAL MED ORDER ONE (14:45)
[2017-03-12] MEDS: CEFTRIAXONE SOD INJ 1 GM in DEXTROSE 5% ADD-VANTAGE 50ML 50 ML IV SCH (16:09)
[2017-03-12] MEDS ORDERED: POTA20TA16 PO (17:42)
[2017-03-12] MEDS ORDERED: CEFU1TAB33 PO (17:42)
--- NOTE | 2017-03-12 17:45 | Discharge Instructions ---
Discharge Instructions Date of Service Mar 12, 2017. Admission Reason for Admission: Vomiting Discharge Discharge Diagnosis / Problem: Nausea, Vomiting Discharge Goals Goal(s): Diagnostic testing, Therapeutic intervention Activity Recommendations Activity Limitations: as noted below (increase acitivty gradually as tolerated) Lifting Limitations: until after follow-up appointment Exercise/Sports Limitations: until after follow-up appointment . Instructions / Follow-Up Instructions / Follow-Up PLEASE REFER TO YOUR NEW MEDICATION LIST AND FOLLOW INSTRUCTIONS CAREFULLY. MAINTAIN SOFT DIET, AND SMALL, FREQUENT MEALS. CALL PRIMARY CARE PHYSICIAN OR RETURN TO ER IMMEDIATELY IF WITH RECURRENCE OF SYMPTOMS. FOLLOW UP WITH ON SATURDAY MARCH 18, 2017 AT 11:00AM. Current Hospital Diet Patient's current hospital diet: AHA Diet (Heart Healthy) Discharge Diet Recommended Diet: AHA Diet (Heart Healthy) Procedures Procedures Performed: EGD Pending Studies Studies pending at discharge: no Medical Emergencies . Who to Call and When: Medical Emergencies: If at any time you feel your situation is an emergency, please call 911 immediately. . Non-Emergent Contact Non-Emergency issues call your: Primary Care Provider Call Non-Emergent contact if: you have a fever, your pain is not controlled, your pain is worsening, you have any medication questions . . "Provider Documentation" section prepared by Tee Rocha. . VTE Core Measure Inpt VTE Proph given/why not?: SCD's
--- NOTE | 2017-03-12 18:08 | Discharge Summary ---
Discharge Summary Date of Service Mar 12, 2017. Discharge Summary Admission Date: Mar 11, 2017 at 17:49 Discharge Date: Mar 12, 2017 Discharge Disposition: Home Principal Diagnosis: INTRACTABLE NAUSEA/VOMITING, ABDOMINAL PAIN LIKELY FROM HIATAL HERNIA, TORTUOUS ESOPHAGUS Secondary Diagnoses/Problems: E COLI UTI, ACUTE RENAL FAILURE ON CKD 3, HYPONATREMIA ; Please refer to hospital course below for further details. Procedures: EGD BY DR. KIM Procedure Date: 03/12/2017 10:20 AM Procedure: Upper GI endoscopy Indications: Dysphagia, Nausea, Weight loss Medicines: Propofol per Anesthesia Complications: No immediate complications. Estimated blood loss: None. Estimated Blood Loss: Estimated blood loss: none. Procedure: Pre-Anesthesia Assessment: - Prior to the procedure, a History and Physical was performed, and patient medications, allergies and sensitivities were reviewed. The patient's tolerance of previous anesthesia was reviewed. - ASA Grade Assessment: III - A patient with severe systemic disease. After obtaining informed consent, the endoscope was passed under direct vision. Throughout the procedure, the patient's blood pressure, pulse, and oxygen saturations were monitored continuously. The scope was introduced through the mouth, and advanced to the third part of the duodenum. Small bowel enteroscopy was deemed necessary. The upper GI endoscopy was accomplished with ease. The patient tolerated the procedure well. Findings: The examined esophagus was moderately tortuous. A guidewire was placed and the scope was withdrawn. Dilation was performed with an Slovenian dilator with no resistance at 45 Fr and 51 Fr. The Z-line was regular and was found 28 cm from the incisors. A large hiatus hernia was present. Patchy mildly erythematous mucosa was found in the entire examined stomach. Biopsies were taken with a cold forceps for Helicobacter pylori testing. The examined duodenum was normal. Biopsies for histology were taken with a cold forceps for evaluation of celiac disease. Verification of patient identification for the specimens was done by the physician and nurse using the patient's name, date and medical record number. Impression: - Tortuous esophagus. - Z-line regular, 28 cm from the incisors. - Large hiatus hernia. - Erythematous mucosa in the stomach. Biopsied. - Normal examined duodenum. Biopsied. Recommendation: - Return patient to [facility] for [facility] care. Bart Kim M.D. Bart Kim MD 03/12/2017 10:48:18 AM This report has been signed electronically. Note Initiated On: 03/12/2017 10:20 AM I attest to the content of the Intraoperative Record and orders documented therein, exceptions below CT SCAN OF THE ABDOMEN AND PELVIS WITHOUT CONTRAST CLINICAL HISTORY: lower abdominal pains, vomiting COMPARISON STUDY: 12/26/2016 TECHNIQUE: CT scan of the abdomen and pelvis was performed from the lung bases to the proximal femurs. Images are reviewed in the axial, sagittal, and coronal planes. IV contrast was not administered for this examination. A dose lowering technique was utilized adhering to the principles of ALARA. CT DOSE: 848.82 mGy.cm FINDINGS: Lower chest: There is a hiatal hernia. Liver: The unenhanced liver is normal in size, contour, and attenuation. There is no intrahepatic biliary ductal dilatation. Gallbladder: Cholelithiasis Spleen: Normal in size and attenuation. Pancreas: Unremarkable. Adrenal glands: Unremarkable. Kidneys: The unenhanced kidneys are normal in size without hydronephrosis. There is no contour deforming renal mass lesion. No renal calculi are identified. Bowel: There are no transition zones indicate bowel obstruction. There is colonic diverticulosis. There are no acute peridiverticular inflammatory changes. There are no findings to indicate acute appendicitis. Peritoneum: There is no intraperitoneal free air or abdominal ascites. Dystrophic type calcifications are again visualized in the left paracolic gutter. Vasculature: The abdominal aorta is normal in course and caliber. Adenopathy: None. Pelvic viscera: The uterus appears surgically absent. Skeletal structures: There are advanced degenerative changes present within the lumbar spine. There is severe spinal stenosis. IMPRESSION: 1. No evidence of bowel obstruction. No evidence of free air 2. Diverticulosis. No evidence of acute diverticulitis 3. Cholelithiasis 4. No renal, ureteral, or bladder calculi identified 5. Degenerative changes present within the spine. Large calcified disc fragment at the L2-3 level. Severe spinal stenosis. 6. Hiatal hernia Consultations: [employer] LOSS PREVENTION MANAGER DR. KIM Pending Studies/Follow-Up: PLEASE REFER TO HOSPITAL COURSE BELOW. Medication Reconciliation New Medications: Cefuroxime Axetil (Cefuroxime Axetil) 250 Mg Tab 1 TAB PO BID for 5 Days, #10 TABS Potassium Ext Rel (Klor-Con) 20 Meq Tabcr 20 MEQ PO DAILY for 5 Days, #5 TAB 0 Refills Continued Medications: Acetaminophen (Tylenol) 500 Mg Tab 1000 MG PO BID PRN for Pain or Fever, TAB Clopidogrel Bisulfate (Clopidogrel) 75 Mg Tab 75 MG PO DAILY, #30 TAB 5 Refills Docusate Sodium (Docusate Sodium) 100 Mg Cap 100 MG PO BID for 30 Days, #60 CAP Ferrous Sulfate (Ferrous Sulfate) 325 Mg Tab 325 MG PO DAILY, #30 TAB 5 Refills No prescription necessary. New dose- take 1 pill daily with lunch. Fluocinolone Acetonide (Fluocinolone Acetonide) Unknown Strength Cre 1 APPLN TOP BID PRN for rash Fluticasone Propionate (Nasal) (Flonase Allergy Relief) 50 Mcg/Act Spr 1 SPRAY FELIPE QAM PRN for Nasal Congestion Furosemide (Lasix) 20 Mg Tab 20 MG PO QAM Lactulose (Lactulose) 20 Gm/30 Ml Syrp 30 ML PO TID PRN for Constipation Latanoprost (Xalatan 0.005% Oph Chanelle) 0.005 % Chanelle 1 DROP OPB BID Levothyroxine Sodium (Synthroid) 75 Mcg Tab 75 MCG PO QAM Lidocaine Hcl (Mouth-Throat) (Lidocaine Hcl) 2 % Chanelle 2 TBS PO UD COAT MOUTH ULCERS Lisinopril (Lisinopril) 10 Mg Tab 10 MG PO BID, #60 TAB 5 Refills New dose. 10 mg twice a day. Hold if systolic blood pressure is less than 120. Loratadine (Claritin) 10 Mg Tab 10 MG PO HS Magic Swizzle (Magic Swizzle - SUCRALFA/ALUM/MAG/DIPHEN/LIDO) 240 Ml Susp 3-4 TSP PO Q4-6H PRN for MOUTH ULCERS 100ml Sucralfate 50ml Maalox 50ml Diphenhydramine 40ml 2% Aq. Lidocaine Swish and Swallow Magnesium Oxide (mg Supplement (Magnesium Oxide) 400 Mg Cap 400 MG PO BID, #60 CAP 5 Refills Meclizine HCl (Meclizine HCl) 25 Mg Tab 12.5 MG PO BID PRN for severe vertigo (spinning), #10 TAB 5 Refills Take 1/2 pill as needed for severe dizziness with spinning. No more than 2 doses a day. Multivitamins/Minerals (Mvi With Minerals) Tab 1 TAB PO DAILY, TAB Nystatin (Topical) (Nystatin) 1 Pow Pow 1 APPL TOP UD PRN for RASH Nystatin/Triamcinolone (Mycolog ||) Cr 1 APPL TOP UD PRN for rash Oxycodone HCl (Oxycodone HCl ER) 30 Mg Tab 30 MG PO Q12 Pantoprazole (Pantoprazole Sodium) 40 Mg Tab 40 MG PO DAILY, #30 TAB 5 Refills replaces omeprazole (Prilosec) Polyethylene Glycol 3350 (Miralax) 1 Pow Pow 17 GM PO DAILY Prednisone (Prednisone) 5 Mg Tab 5 MG PO QAM Ranitidine HCl (Ranitidine HCl) 150 Mg Tab 150 MG PO HS, #30 TAB 5 Refills Take at bedtime. Riboflavin (B2) 100 Mg Tab 100 MG PO DAILY, #30 TAB 5 Refills No prescription necessary. Senna (Senna Lax) 8.6 Mg Tab 8.6 MG PO QAM for 30 Days, #30 TAB Sennosides-Docusate Sodium (Stool Softener) 1 Tab Tab 1 TAB PO QAM Simethicone (Gas-X) 80 Mg Chw 80 MG PO QID PRN for GAS Simvastatin (Zocor) 20 Mg Tab 20 MG PO HS Venlafaxine Hcl (Effexor Extended Rel) 150 Mg Cap 150 MG PO DAILY, CAP Vitamin E (E-400) 400 Unit Cap 1 TAB PO QAM Admission Information HPI (per Admitting provider): 76 year old female with history of DM, HTN, Hypothyroidism, CKD 3, PMR on chronic Prednisone, presenting with nausea/vomiting, and abdominal x 5 days. Patient was at her baseline health until 5 days ago when she started to have central abdominal pain, crampy, associated with nausea and vomiting. She cannot keep anything down and vomits food/liquids immediately after eating. Denies constipation/diarrhea. She also started to have dysuria , lower abdominal pain, foul smelling urine about 2 days ago. She was then brought to the ER for further evaluation. CT abdomen: hiatal hernia, cholelithiasis Crea 1.6, Na 126 Patient was seen with daughter Latonya at the bedside. Reports feeling slightly better after being given Zofran and IV fluids. Denies headache, dizziness, chest pain, dyspnea. No other symptoms. Had a long discussion with patient and daughter (spent 1 hour with them at the ER room b3). Initially, patient would like to go home, she then decided to stay for further work up and management. Physical Exam (per Admitting): General Appearance: WD/WN, no apparent distress Head: normocephalic, atraumatic Eyes: normal inspection, EOMI, sclerae normal ENT: normal ENT inspection, hearing grossly normal Neck: supple, no adenopathy, thyroid normal, no JVD, trachea midline Respiratory/Chest: chest non-tender, lungs clear, normal breath sounds, no respiratory distress, no accessory muscle use Cardiovascular: regular rate, rhythm, no edema, no gallop, no JVD, no murmur , normal peripheral pulses Abdomen/GI: normal bowel sounds, + pertinent finding (mild tenderness epigastric region and suprapubic region) Back: normal inspection, no CVA tenderness Extremities/Musculoskelatal: normal inspection, no calf tenderness, no pedal edema Neurologic/Psych: fondant puff maker II-XII nml as tested, no motor/sensory deficits, alert , normal mood/affect, oriented x 3 Skin: normal color, warm/dry, no rash Lymphatic: no adenopathy Hospital Course 76 year old female with history of DM, HTN, Hypothyroidism, CKD 3, PMR on chronic Prednisone, presenting with nausea/vomiting, and abdominal x 5 days. INTRACTABLE NAUSEA/VOMITING, ABDOMINAL PAIN LIKELY FROM HIATAL HERNIA, TORTUOUS ESOPHAGUS - s/p EGD: large hiatal hernia, tortuous esophagus- dilation performed, gastritis - biopsy pending - tolerating clears advanced to soft diet, tolerated well symptoms resolved - continue PPI - may need gastric emptying study per GI if symptoms recur/persist advised small frequent meals - patient advised to be observed overnight but patient would like to be discharged home daughter agrees E COLI UTI - final sensitivities pending - received 2 days of IV Ceftriaxone with improvement of symptoms - will place on empiric Cefuroxime 250mg bid x 5 days will ff up sensitivities and call patient if E coli resistant to Cefuroxime HYPONATREMIA - D5NSS ordered - Na improved from 126 to 133 d/c fluids - repeat PRP as outpatient ACUTE RENAL FAILURE ON CKD 3 - from pre renal most likely - crea improved from 1.6 to 1.1 after IV fluids - repeat PRP as outpatient advised not to take Lasix if with vomiting/diarrhea/poor oral intake HYPOKALEMIA - PO K ordered - repeat as outpatient HTN - resume lisinopril HYPOTHYROIDISM - resume PO Levo PMR - on chronic prednisone TIA HISTORY - hold Plavix for 1 day, then resume Dispo d/c home ff up with PCP in 1 week discussed case with patient and her daughter in detail and at length all questions answered they are comfortabe, agreeable with plan of care Total time spent on discharge = 45 minutes This includes examination of the patient, discharge planning, medication reconciliation, and communication with other providers. Discharge Instructions Discharge Instructions Date of Service Mar 12, 2017. Admission Reason for Admission: Vomiting Discharge Discharge Diagnosis / Problem: Nausea, Vomiting Discharge Goals Goal(s): Diagnostic testing, Therapeutic intervention Activity Recommendations Activity Limitations: as noted below (increase acitivty gradually as tolerated) Lifting Limitations: until after follow-up appointment Exercise/Sports Limitations: until after follow-up appointment . Instructions / Follow-Up Instructions / Follow-Up PLEASE REFER TO YOUR NEW MEDICATION LIST AND FOLLOW INSTRUCTIONS CAREFULLY. MAINTAIN SOFT DIET, AND SMALL, FREQUENT MEALS. CALL PRIMARY CARE PHYSICIAN OR RETURN TO ER IMMEDIATELY IF WITH RECURRENCE OF SYMPTOMS. FOLLOW UP WITH ON SATURDAY MARCH 18, 2017 AT 11:00AM. Current Hospital Diet Patient's current hospital diet: AHA Diet (Heart Healthy) Discharge Diet Recommended Diet: AHA Diet (Heart Healthy) Procedures Procedures Performed: EGD Pending Studies Studies pending at discharge: no Medical Emergencies . Who to Call and When: Medical Emergencies: If at any time you feel your situation is an emergency, please call 911 immediately. . Non-Emergent Contact Non-Emergency issues call your: Primary Care Provider Call Non-Emergent contact if: you have a fever, your pain is not controlled, your pain is worsening, you have any medication questions . . "Provider Documentation" section prepared by Tee Rocha. . VTE Core Measure Inpt VTE Proph given/why not?: SCD's
[2017-03-12] MEDS ORDERED: SIMVASTATIN 20 MG TAB PO SCH (21:00)
[2017-03-12] MEDS ORDERED: MAGNESIUM OXIDE 400 MG TAB PO SCH (21:00)
[2017-03-12] MEDS ORDERED: LISINOPRIL 10 MG TAB PO SCH (21:00)
[2017-03-12] MEDS ORDERED: DOCUSATE SODIUM 100 MG CAP PO SCH (21:00)
[2017-03-12] MEDS ORDERED: OXYCODONE HCL 10 MG TABCR (OXYCONTIN) PO SCH (21:00)
[2017-03-12] MEDS ORDERED: RANITIDINE HCL 150 MG TAB PO SCH (21:00)
[2017-03-13] MEDS ORDERED: LEVOTHYROXINE 75 MCG TAB PO SCH (06:30)
[2017-03-13] MEDS ORDERED: CEROVITE ADV FORMULA TAB PO SCH (09:00)
[2017-03-13] MEDS ORDERED: FERROUS SULFATE 325 MG TAB PO SCH (09:00)
[2017-03-13] MEDS ORDERED: DOCUSATE SODIUM/SENNA 50/8.6MG TAB PO SCH (09:00)
[2017-03-13] MEDS ORDERED: RIBOFLAVIN 100 MG PO SCH (09:00)
[2017-03-13] MEDS ORDERED: LORATADINE 10 MG TAB PO SCH (21:00)
[2017-04-16] MEDS ORDERED: OXYC-787 PO (18:45)
[2017-04-16] MEDS ORDERED: AMOX1TAB43 PO (18:45)
== END 2017-03-12 19:09 | disposition home health service (06) | DRG 392 ==
LOC: C.EDB 15:14 → C.MED 17:49 → ENRESERV 17:57
PROVIDERS: ADMIT Internal Medicine; ATTEND Internal Medicine
PROC: 0D758ZZ Dilation of Esophagus, Via Natural or Artificial Opening Endoscopic (ICD-10-PCS; principal; 2017-03-12 08:51)
PROC: 0DB68ZX Excision of Stomach, Via Natural or Artificial Opening Endoscopic, Diagnostic (ICD-10-PCS; principal; 2017-03-12 08:51)
PROC: 0DB98ZX Excision of Duodenum, Via Natural or Artificial Opening Endoscopic, Diagnostic (ICD-10-PCS; principal; 2017-03-12 08:51)
DX: K29.70 Gastritis, unspecified, without bleeding (principal); N17.9 Acute kidney failure, unspecified; N39.0 Urinary tract infection, site not specified; E87.1 Hypo-osmolality and hyponatremia; Q39.8 Other congenital malformations of esophagus; R11.2 Nausea with vomiting, unspecified; R10.10 Upper abdominal pain, unspecified; B96.20 Unspecified Escherichia coli [E. coli] as the cause of diseases classified elsewhere; E87.6 Hypokalemia; R13.10 Dysphagia, unspecified; K44.9 Diaphragmatic hernia without obstruction or gangrene; I12.9 Hypertensive chronic kidney disease with stage 1 through stage 4 chronic kidney disease, or unspecified chronic kidney disease; N18.3 Chronic kidney disease, stage 3 (moderate); M35.3 Polymyalgia rheumatica; E11.22 Type 2 diabetes mellitus with diabetic chronic kidney disease; E03.9 Hypothyroidism, unspecified; Z87.891 Personal history of nicotine dependence; Z86.73 Personal history of transient ischemic attack (TIA), and cerebral infarction without residual deficits; Z79.02 Long term (current) use of antithrombotics/antiplatelets; Z79.52 Long term (current) use of systemic steroids; Z79.891 Long term (current) use of opiate analgesic; Z79.899 Other long term (current) drug therapy

== ENCOUNTER 2017-04-08 12:51 | Inpatient (IN) | payer OTHER ==
[~2017-04-08] VITALS: Ht 152.4 cm; Wt 63.4 kg
[~2017-04-08 12:51] MED LIST changes: +ACET-1256 PO; -ACET325T30 PO; +CEFU1TAB33 PO; -DLC5 PO; +POTA20TA16 PO
--- NOTE | 2017-04-08 12:53 | EMERGENCY ROOM VISIT NOTE ---
"History Report prepared by Sherry: Juan Canada Under the Supervision of: Dr. Bart Pelletier D.O. First contact with patient: 12:52 Stated Complaint: ALTERED MENTAL STATUS History of Present Illness The patient is a 76 year old female who presents to the Emergency Room with complaints of Review of Systems See HPI for pertinent positives & negatives. A total of 10 systems reviewed and were otherwise negative. Past Medical & Surgical Medical Problems: (1) CKD (chronic kidney disease), stage III (2) Depression (3) Diabetes mellitus type 2, diet-controlled (4) Diabetic neuropathy (5) Dyslipidemia (6) Gastric ulcer (7) HTN (hypertension) (8) Hypothyroid (9) KENIA (iron deficiency anemia) (10) Osteoarthritis (11) Rectal prolapse (12) Rectocele (13) TIA (transient ischemic attack) Surgical Problems: (1) H/O shoulder surgery (2) H/O umbilical hernia repair Social History Smoking Status: Never Smoker Drug Use: none Marital Status: Housing Status: lives with significant other Occupation Status: retired Current/Historical Medications Scheduled Cefuroxime Axetil (Cefuroxime Axetil), 1 TAB PO BID Clopidogrel Bisulfate (Clopidogrel), 75 MG PO DAILY Docusate Sodium (Docusate Sodium), 100 MG PO BID Ferrous Sulfate (Ferrous Sulfate), 325 MG PO DAILY Furosemide (Lasix), 20 MG PO QAM Latanoprost (Xalatan 0.005% Oph Chanelle), 1 DROP OPB BID Levothyroxine Sodium (Synthroid), 75 MCG PO QAM Lidocaine Hcl (Mouth-Throat) (Lidocaine Hcl), 2 TBS PO UD Lisinopril (Lisinopril), 10 MG PO BID Loratadine (Claritin), 10 MG PO HS Magnesium Oxide (mg Supplement (Magnesium Oxide), 400 MG PO BID Multivitamins/Minerals (Mvi With Minerals), 1 TAB PO DAILY Oxycodone HCl (Oxycodone HCl ER), 30 MG PO Q12 Pantoprazole (Pantoprazole Sodium), 40 MG PO DAILY Polyethylene Glycol 3350 (Miralax), 17 GM PO DAILY Potassium Ext Rel (Klor-Con), 20 MEQ PO DAILY Prednisone (Prednisone), 5 MG PO QAM Ranitidine HCl (Ranitidine HCl), 150 MG PO HS Riboflavin (B2), 100 MG PO DAILY Senna (Senna Lax), 8.6 MG PO QAM Sennosides-Docusate Sodium (Stool Softener), 1 TAB PO QAM Simvastatin (Zocor), 20 MG PO HS Venlafaxine Hcl (Effexor Extended Rel), 150 MG PO DAILY Vitamin E (E-400), 1 TAB PO QAM Scheduled PRN Acetaminophen (Tylenol), 1,000 MG PO BID PRN for Pain or Fever Fluocinolone Acetonide (Fluocinolone Acetonide), 1 APPLN TOP BID PRN for rash Fluticasone Propionate (Nasal) (Flonase Allergy Relief), 1 SPRAY FELIPE QAM PRN for Nasal Congestion Lactulose (Lactulose), 30 ML PO TID PRN for Constipation Magic Swizzle (Magic Swizzle - SUCRALFA/ALUM/MAG/DIPHEN/LIDO), 3-4 TSP PO Q4-6H PRN for MOUTH ULCERS Meclizine HCl (Meclizine HCl), 12.5 MG PO BID PRN for severe vertigo (spinning) Nystatin (Topical) (Nystatin), 1 APPL TOP UD PRN for RASH Nystatin/Triamcinolone (Mycolog ||), 1 APPL TOP UD PRN for rash Simethicone (Gas-X), 80 MG PO QID PRN for GAS Allergies Coded Allergies: Gabapentin (Verified Allergy, Severe, MOUTH SWELLS, 03/11/17) Pregabalin (Verified Allergy, Severe, MOUTH SWELLS, 03/11/17) Medical Decision & Procedures Laboratory Results Test 04/08/17 12:55 04/08/17 12:57 Creatine Kinase MB Ratio (0-3.0) Departure Information Referrals Markell Kline M.D. (PCP)"
--- NOTE | 2017-04-08 13:02 | EMERGENCY ROOM VISIT NOTE ---
"History Report prepared by Sherry: Juan Canada Under the Supervision of: Dr. Bart Pelletier D.O. First contact with patient: 12:52 Stated Complaint: ALTERED MENTAL STATUS History of Present Illness The patient is a 76 year old female with a history of type 2 diabetes and hypertension who presents to the Emergency Room via EMS with worsening altered mental status that started 3 days ago. Per EMS, the patient has been here 6 times over the past couple weeks. The patient has had worsening weakness the past couple days, and has not been acting right per the patient's family. Per EMS, the patient has not been responding well today, but has been like this the past few days. Her vital signs were stable other than her glucose, which was 56. The patient was given IV dextrose by EMS and her sugars bumped back up. She was also put on 2 liters of oxygen and her oxygen saturation went from the mid 90s to 99. The patient was noted to have a couple episodes of vomiting green bile, which is new. She has been bedridden the past few days, and felt warm prior to arrival but had no fever. The patient has been denying any abdominal pain. The patient has not started any new medications recently. History limited secondary to patient's altered mental status. Source of History: EMS History Limited By: AMS Onset: 3 days ago Position: other (global - altered mental status) Quality: other (not responding well) Timing: worsening Associated Symptoms: + vomiting (green bile), + weakness, No fevers, No abdominal pain Note: Associated symptoms: Low blood sugar prior to arrival. Bedridden past few days. Review of Systems ROS limited secondary to patient's altered mental status. Past Medical & Surgical Medical Problems: (1) CKD (chronic kidney disease), stage III (2) Depression (3) Diabetes mellitus type 2, diet-controlled (4) Diabetic neuropathy (5) Dyslipidemia (6) Gastric ulcer (7) HTN (hypertension) (8) Hypothyroid (9) KENIA (iron deficiency anemia) (10) Osteoarthritis (11) Rectal prolapse (12) Rectocele Surgical Problems: (1) H/O shoulder surgery (2) H/O umbilical hernia repair Family History Diabetes mellitus FATHER SISTER FH: CAD (coronary artery disease) MOTHER Stroke BROTHER Social History Smoking Status: Never Smoker Drug Use: none Marital Status: Housing Status: lives with significant other Occupation Status: retired Current/Historical Medications Scheduled Aspirin (Aspirin EC Low Dose), 81 MG PO DAILY Ferrous Sulfate (Kp Ferrous Sulfate), 1 TAB PO DAILY Fluticasone Propionate (Nasal) (Flonase Allergy Relief), 2 SPRAYS FELIPE QAM Latanoprost (Xalatan 0.005% Oph Chanelle), 1 DROP OPB BID Levothyroxine Sodium (Synthroid), 75 MCG PO QAM Lidocaine Hcl (Mouth-Throat) (Lidocaine Hcl), 2 TBS PO UD Lisinopril (Prinivil), 1 TAB PO BID Loratadine (Claritin), 10 MG PO HS Magnesium Oxide (Magnesium Oxide), 1 CAP PO BID Multiple Vitamins W/ Minerals (Centrum Silver), 1 TAB PO QAM Nystatin/Triamcinolone (Mycolog ||), 1 APPL TOP BID Oxycodone HCl (Oxycodone HCl ER), 30 MG PO Q12 Pantoprazole (Protonix), 40 MG PO DAILY Potassium Chloride Microencaps (Potassium Chloride Er), 1 TAB PO DAILY Prednisone (Prednisone), 5 MG PO DAILY Ranitidine (Zantac), 150 MG PO HS Riboflavin (Riboflavin), 100 MG PO DAILY Sennosides-Docusate Sodium (Stool Softener), 1 TAB PO BID Simvastatin (Zocor), 20 MG PO HS Venlafaxine Hcl (Effexor Extended Rel), 150 MG PO DAILY Vitamin E (E-400), 1 TAB PO QAM Scheduled PRN Fluocinolone Acetonide (Fluocinolone Acetonide), 1 APPLN TOP BID PRN for rash Furosemide (Lasix), 20 MG PO QAM PRN for FLUID RET Lactulose (Constulose), 30 ML PO TID PRN for Constipation Magic Swizzle (Magic Swizzle - SUCRALFA/ALUM/MAG/DIPHEN/LIDO), 3-4 TSP PO Q4-6H PRN for MOUTH ULCERS Meclizine Hcl (Meclizine Hcl), 1 TAB PO TID PRN for Dizziness or Vertigo Nystatin (Nystatin Suspension), 5 ML PO QID PRN for THRUSH Nystatin (Topical) (Nystatin), 1 APPL TOP TID PRN for RASH Polyethylene Glycol 3350 (Miralax), 17 GM PO DAILY PRN for Constipation Simethicone (Gas Relief), 1 TAB PO QID PRN for prn Allergies Coded Allergies: Gabapentin (Verified Allergy, Severe, MOUTH SWELLS, 04/08/17) Pregabalin (Verified Allergy, Severe, MOUTH SWELLS, 04/08/17) Physical Exam Vital Signs Date Time Temp Pulse Resp B/P (MAP) Pulse Ox O2 Delivery O2 Flow Rate FiO2 04/08/17 15:07 36.6 99 18 91/60 93 Room Air 04/08/17 13:56 89 20 117/75 94 Room Air 04/08/17 13:28 96 Room Air 04/08/17 13:21 90 04/08/17 12:55 35.7 80 22 144/91 95 Room Air Physical Exam GENERAL: Patient is listless and does not follow commands or respond to verbal stimuli. EYES: The conjunctivae are clear. The pupils are round and reactive. EARS, NOSE, MOUTH AND THROAT: The nose is without any evidence of any deformity. Mucous membranes are dry tongue is midline NECK: The neck is nontender and supple. RESPIRATORY: Lung sounds diminished throughout with shallow respirations noted. No tachypnea noted. CARDIOVASCULAR: Regular rate and rhythm noted there no murmurs rubs or gallops normal S1 normal S2 GASTROINTESTINAL: The abdomen is soft. Bowel sounds are present in all quadrants. Abdomen is nontender MUSCULOSKELETAL/EXTREMITIES: There is no evidence of gross deformity full range of motion is noted in the hips and shoulders SKIN: Pedal edema bilaterally. No signs of cellulitis. NEUROLOGIC: Patient will not answer questions so cannot assess orientation at this time. Patient appears to move all extremities. There appears to be rigidity in the lower extremities. Medical Decision & Procedures ER Provider Diagnostic Interpretation: Radiology results as stated below per my review and radiologist interpretation: HEAD WITHOUT CONTRAST (CT) CLINICAL HISTORY: 76 years-old Female with altered MS. Acute altered mental status. Associated G and vomiting. TECHNIQUE: Multiple axial CT images of the head were obtained without contrast. A dose lowering technique was utilized adhering to the principles of ALARA. CT DOSE: 1170.52 mGy.cm COMPARISON: CT head 12/05/2016.. FINDINGS: No acute intracranial hemorrhage, midline shift, mass, large territorial ischemia or abnormal extra-axial collection. Note is made of cavum septum lucidum. There is mild atrophy with ex vacuo tracheomegaly. Patchy areas of low attenuation within the periventricular white matter are again seen suggesting chronic microvascular ischemic changes. Focal area of low attenuation within the right caudate nucleus is unchanged suggesting remote lacunar infarction. 6 mm low attenuating focus of the mid left cerebellar hemisphere is also unchanged suggesting remote lacunar infarction. The calvarium is intact. The paranasal sinuses, mastoid air cells, and middle ear cavities are clear. IMPRESSION: 1. No acute intracranial abnormality. 2. Chronic age-related findings of atrophy, chronic microvascular ischemic changes and remote lacunar infarctions. The above report was generated using voice recognition software. It may contain grammatical, syntax or spelling errors. Electronically signed by: Cleveland Pereyra M.D. 04/08/2017 2:19 PM Dictated Date/Time: 04/08/2017 2:14 PM CHEST ONE VIEW PORTABLE HISTORY: 76 years-old Female Sepsis acute sepsis with altered mental status. COMPARISON: Chest radiograph 12/26/2016. TECHNIQUE: Portable upright AP view of the chest FINDINGS: Cardiac silhouette is mildly enlarged, unchanged. There is atherosclerosis and tortuosity of the aorta. Lungs are mildly hypoinflated without pneumothorax, pleural effusion, focal airspace consolidation or overt pulmonary edema. Degenerative changes are seen throughout the spine and shoulders. There is convex left curvature of the thoracolumbar junction. Postsurgical changes are seen within the right humeral head. IMPRESSION: No acute cardiopulmonary process. The above report was generated using voice recognition software. It may contain grammatical, syntax or spelling errors. Electronically signed by: Cleveland Pereyra M.D. 04/08/2017 2:07 PM Dictated Date/Time: 04/08/2017 2:[address] SCAN OF THE ABDOMEN AND PELVIS WITHOUT IV CONTRAST CLINICAL HISTORY: Vomiting. Generalized abdominal pain. COMPARISON STUDY: Abdominal CT dated 03/11/2017. TECHNIQUE: CT scan of the abdomen and pelvis is performed from the lung bases to the proximal femora. Images are reviewed in the axial, sagittal, and coronal planes. IV contrast was not administered for this examination as per the referring clinician. Note that the examination was performed and significant suboptimal fashion without oral and IV contrast. The examination is also greater by streak artifact from the patient's arms which could not be elevated above the abdomen and motion artifact. A dose lowering technique was utilized adhering to the principles of ALARA. FINDINGS: Lung bases: The heart is normal in size and without pericardial effusion. The mitral annulus is densely calcified. The lung bases are clear noting dependent atelectasis. There is a small to moderate hiatal hernia. Liver: The unenhanced liver is normal in size, contour, and attenuation. There is no intrahepatic biliary ductal dilatation. Gallbladder: There are numerous layering calcified gallstones. The gallbladder is otherwise normal in appearance. Spleen: Normal in size and attenuation. Pancreas: There is near complete fatty atrophy of the pancreas. Adrenal glands: Unremarkable. Kidneys: The unenhanced kidneys are atrophic and without hydronephrosis. There are no renal calculi identified. There is no evidence of contour deforming renal mass lesion. Abdominal vasculature: The abdominal aorta is normal in course and caliber noting advanced atherosclerotic calcification. Bowel: There is no bowel obstruction. A metallic density is incidentally noted within the lumen of the right colon on image #[id number]. There is moderate diverticulosis of the left colon without CT evidence of acute diverticulitis. The appendix is well-visualized and normal. Peritoneum: There is no intraperitoneal free air or abdominal ascites. Lymphadenopathy: None. Pelvic viscera: The bladder is decompressed and grossly unremarkable. The uterus and adnexa are grossly unremarkable Skeletal structures: The skeletal structures are heterogeneously osteopenic. There is advanced lumbosacral spondylosis. Large posterior discussed by complex is likely contribute to multilevel acquired compromise of the central canal. Sclerotic degenerative change is noted in the sacroiliac joints. No lytic or blastic lesions are seen. IMPRESSION: 1. Suboptimal examination without oral and IV contrast. The examination is also degraded by streak and motion artifact. 2. No acute infectious or inflammatory findings are identified in the abdomen or pelvis. 3. There is moderate diverticulosis of left colon without CT evidence of acute diverticulitis. 4. Cholelithiasis. 5. Hiatal hernia. 6. Additional findings as above. Electronically signed by: Sumit Guerrero M.D. 04/08/2017 2:29 PM Dictated Date/Time: 04/08/2017 2:21 PM Laboratory Results 04/08/17 13:25 Red Blood Count 5.23, Mean Corpuscular Volume 88.7, Mean Corpuscular Hemoglobin 29.3, Mean Corpuscular Hemoglobin Concent 33.0, Mean Platelet Volume 10.0, Neutrophils (%) (Auto) 82.3, Lymphocytes (%) (Auto) 9.5, Monocytes (%) (Auto) 5.7, Eosinophils (%) (Auto) 1.7, Basophils (%) (Auto) 0.1, Neutrophils # (Auto) 7.17, Lymphocytes # (Auto) 0.83, Monocytes # (Auto) 0.50, Eosinophils # (Auto) 0.15, Basophils # (Auto) 0.01 04/08/17 13:25 Test 04/08/17 13:00 04/08/17 13:21 04/08/17 13:25 04/08/17 14:35 Urine Color YELLOW Urine Appearance CLEAR (CLEAR) Urine pH 7.0 (4.5-7.5) Urine Specific [place] 1.014 (1.000-1.030) Urine Protein NEG (NEG) Urine Glucose (UA) 2+ (NEG) Urine Ketones 1+ (NEG) Urine Occult Blood 1+ (NEG) Urine Nitrite NEG (NEG) Urine Bilirubin NEG (NEG) Urine Urobilinogen NEG (NEG) Urine Leukocyte Esterase LARGE (NEG) Urine WBC (Auto) >30 /hpf (0-5) Urine RBC (Auto) 0-4 /hpf (0-4) Urine Hyaline Casts (Auto) 1-5 /lpf (0-5) Urine Epithelial Cells (Auto) >30 /lpf (0-5) Urine Bacteria (Auto) NEG (NEG) Urine Renal Epithelial Cells 5-10 /lpf (0-5) Bedside Glucose 142 mg/dl (70-90) Urine Opiates Screen NEG (NEG) Urine Methadone, Qualitative NEG (NEG) Urine Barbiturates NEG (NEG) Urine Phencyclidine (PCP) Level NEG (NEG) Ur Amphetamine/Methamphetamine NEG (NEG) MDMA (Ecstasy) Screen NEG (NEG) Urine Benzodiazepines Screen NEG (NEG) Urine Cocaine Metabolite NEG (NEG) Urine Marijuana (THC) NEG (NEG) Bedside Lactic Acid Venous 1.41 mmol/L (0.90-1.70) White Blood Count 8.72 K/uL (4.8-10.8) Red Blood Count 5.23 M/uL (4.2-5.4) Hemoglobin 15.3 g/dL (12.0-16.0) Hematocrit 46.4 % (37-47) Mean Corpuscular Volume 88.7 fL (80-100) Mean Corpuscular Hemoglobin 29.3 pg (25-34) Mean Corpuscular Hemoglobin Concent 33.0 g/dl (32-36) Platelet Count 179 K/uL (130-400) Mean Platelet Volume 10.0 fL (7.4-10.4) Neutrophils (%) (Auto) 82.3 % Lymphocytes (%) (Auto) 9.5 % Monocytes (%) (Auto) 5.7 % Eosinophils (%) (Auto) 1.7 % Basophils (%) (Auto) 0.1 % Neutrophils # (Auto) 7.17 K/uL (1.4-6.5) Lymphocytes # (Auto) 0.83 K/uL (1.2-3.4) Monocytes # (Auto) 0.50 K/uL (0.11-0.59) Eosinophils # (Auto) 0.15 K/uL (0-0.5) Basophils # (Auto) 0.01 K/uL (0-0.2) RDW Standard Deviation 44.6 fL (36.4-46.3) RDW Coefficient of Variation 13.7 % (11.5-14.5) Immature Granulocyte % (Auto) 0.7 % Immature Granulocyte # (Auto) 0.06 K/uL (0.00-0.02) Erythrocyte Sedimentation Rate 9 mm/hr (0-21) Prothrombin Time 11.2 SECONDS (9.0-12.0) Prothromb Time International Ratio 1.0 (0.9-1.1) Activated Partial Thromboplast Time 27.4 SECONDS (21.0-31.0) Partial Thromboplastin Ratio 1.1 Anion Gap 12.0 mmol/L (3-11) Est Creatinine Clear Calc Drug Dose 38.5 ml/min Estimated GFR () 51.6 Estimated GFR (Non- 44.5 BUN/Creatinine Ratio 21.3 (10-20) Calcium Level 8.0 mg/dl (8.5-10.1) Phosphorus Level 2.2 mg/dl (2.5-4.9) Magnesium Level 1.8 mg/dl (1.8-2.4) Total Bilirubin 1.0 mg/dl (0.2-1) Aspartate Amino Transf (AST/SGOT) 27 U/L (15-37) Alanine Aminotransferase (ALT/SGPT) 15 U/L (12-78) Alkaline Phosphatase 71 U/L (45-117) Ammonia < 10.0 umol/L (11-32) Total Creatine Kinase 48 U/L (26-192) Creatine Kinase MB 3.9 ng/ml (0.5-3.6) Creatine Kinase MB Ratio 8.1 (0-3.0) Troponin I 0.039 ng/ml (0-0.045) C-Reactive Protein 1.24 mg/dl (0-0.29) Pro-B-Type Natriuretic Peptide 1471 pg/ml (0-900) Total Protein 5.5 gm/dl (6.4-8.2) Albumin 2.4 gm/dl (3.4-5.0) Globulin 3.1 gm/dl (2.5-4.0) Albumin/Globulin Ratio 0.8 (0.9-2) Lipase 343 U/L (73-393) Thyroid Stimulating Hormone (TSH) 0.369 uIu/ml (0.300-4.500) Free Thyroxine 1.62 ng/dl (0.80-1.60) Venous Blood pH 7.42 (7.36-7.41) Venous Blood Partial Pressure CO2 48 mmHg (38.0-50.0) Venous Blood Partial Pressure O2 29 mmHg Venous Blood HCO3 30 mmol/L Venous Blood Oxygen Saturation < 60.0 % Venous Blood Base Excess 5.0 mEq/L Laboratory results per my review. Medications Administered Medications (Trade) Dose Ordered Sig/Fab Route Start Time Stop Time Status Last Admin Dose Admin Levofloxacin (Levaquin / D5W) 750 mg NOW STAT IV 04/08/17 14:18 04/08/17 14:20 DC 04/08/17 14:59 750 MG Sodium Chloride 1,000 ml @ 999 mls/hr Q1H1M STAT IV 04/08/17 14:21 04/08/17 15:21 DC 04/08/17 14:59 999 MLS/HR ECG Indication: altered mental status Rate (beats per minute): 97 Rhythm: sinus rhythm Findings: PVC, other (LVH noted by voltage criteria) Change: no significant change (from March 11 2017) ED Course 1253: The patient was evaluated in room A12B. A limited history and physical examination were performed. 1417: I reevaluated the patient and talked to her daughter. 1418: Ordered Levaquin / D5W 750 mg IV. 1421: Ordered NSS 1000 ml @ 999 mls/hr IV. 1448: Upon reevaluation, the patient is resting. I discussed results and treatment plan with the patient's daughter. She verbalizes agreement and understanding. The patient will be evaluated for further management and care. 1513: I discussed the patient with Dr. Aruna Ornelas displayer merchandise. She will evaluate the patient for further treatment. Medical Decision Differential diagnosis: Etiologies such as metabolic, infection, hypoglycemia, electrolyte abnormalities , cardiac sources, intracerebral event, toxicologic, neurologic, as well as others were entertained. Nursing notes reviewed. Additional history is obtained from the patient's daughter as well as the prehospital personnel. The patient is a 76-year-old female who presented to the emergency department for an evaluation of altered mental status. The patient has been seen in our facility for similar complaints. It sounds as though over the last few days she' s been having decreased mental status and she has not been taking her outpatient medications. The patient also has been having emesis which her daughter states is green and feels it could be bilious emesis. The patient's abdominal exam was not consistent with an acute surgical abdomen. I discussed the patient's laboratory and rate of graphic studies with her and her daughter. She was treated with IV fluids and IV antibiotics in the emergency department. She was also treated with anti-nausea medication. On subsequent reevaluation she was somewhat improved. I discussed her case with the on-call [facility] hospitalist group. They have agreed to evaluate the patient in emergency apartment for further management and disposition. Medication Reconcilliation Current Medication List: was personally reviewed by me Blood Pressure Screening Patient's blood pressure: Normal blood pressure Consults Time Called: 1500 Consulting Physician: Dr. Aruna Ornelas displayer merchandise Returned Call: [phone] I discussed the patient with Dr. Aruna Ornelas displayer merchandise. She will evaluate the patient for further treatment. Impression Primary Impression: Vomiting Additional Impressions: Altered mental status Urinary tract infection Hypoglycemia Hypothermia Scribe Attestation The scribe's documentation has been prepared under my direction and personally reviewed by me in its entirety. I confirm that the note above accurately reflects all work, treatment, procedures, and medical decision making performed by me. Departure Information Dispostion Being Evaluated By Hospitalist Markell Gamble M.D. (PCP) Problem Qualifiers Primary Impression: Vomiting Vomiting type: unspecified Vomiting Intractability: unspecified Nausea presence: unspecified Qualified Codes: R11.10 - Vomiting, unspecified Additional Impressions: Altered mental status Altered mental status type: unspecified Qualified Codes: R41.82 - Altered mental status, unspecified Urinary tract infection Urinary tract infection type: site unspecified Hematuria presence: without hematuria Qualified Codes: N39.0 - Urinary tract infection, site not specified Hypothermia Encounter type: initial encounter Qualified Codes: T68.XXXA - Hypothermia, initial encounter"
[2017-04-08 13:46] LABS: BASO % 0.1 %; BASO ABS # 0.01 K/uL (0-0.2); COMPLETE YES; EOS % 1.7 %; HEMATOCRIT 46.4 % (37-47); IG% 0.7 %; LYMPH % 9.5 %; LYMPH ABS # 0.83 K/uL (1.2-3.4); MEAN CELL VOLUME 88.7 fL (80-100); MEAN CORPUSCULAR HEMOGLOBIN 29.3 pg (25-34); MONO % 5.7 %; NEUT % 82.3 %; PLATELET COUNT 179 K/uL (130-400); RED BLOOD COUNT 5.23 M/uL (4.2-5.4); WHITE BLOOD COUNT 8.72 K/uL (4.8-10.8)
[2017-04-08 14:03] LABS: URINE APPEARANCE CLEAR (CLEAR); URINE BILIRUBIN NEG (NEG); URINE COLOR YELLOW; URINE EPITHELIAL CELL AUTO >30 /lpf (0-5); URINE NITRITE NEG (NEG); URINE SPECIFIC GRAVITY 1.014 (1.000-1.030); UROBILINOGEN NEG (NEG); ZZURINE CULT IF INDIC CATH YES
[2017-04-08 14:08] LABS: MANUAL MICROSCOPIC REQUIRED? NO; REVIEW REQ? YES
--- NOTE | 2017-04-08 14:08 | DIAGNOSTIC IMAGING REPORT ---
CHEST ONE VIEW PORTABLE HISTORY: 76 years-old Female Sepsis acute sepsis with altered mental status. COMPARISON: Chest radiograph 12/26/2016. TECHNIQUE: Portable upright AP view of the chest FINDINGS: Cardiac silhouette is mildly enlarged, unchanged. There is atherosclerosis and tortuosity of the aorta. Lungs are mildly hypoinflated without pneumothorax, pleural effusion, focal airspace consolidation or overt pulmonary edema. Degenerative changes are seen throughout the spine and shoulders. There is convex left curvature of the thoracolumbar junction. Postsurgical changes are seen within the right humeral head. IMPRESSION: No acute cardiopulmonary process. The above report was generated using voice recognition software. It may contain grammatical, syntax or spelling errors. Electronically signed by: Cleveland Pereyra M.D. 04/08/2017 2:07 PM Dictated Date/Time: 04/08/2017 2:06 PM
[2017-04-08 14:11] LABS: BUN/CREATININE RATIO 21.3 (10-20); CREATININE 1.2 mg/dl (0.60-1.20); MAGNESIUM 1.8 mg/dl (1.8-2.4); POTASSIUM 3.1 mmol/L (3.5-5.1)
[2017-04-08] MEDS ORDERED: LEVAQUIN 750MG / 150ML D5W IV STA (14:18)
[2017-04-08] MEDS ORDERED: LIDO2SOL19 PO (14:20)
[2017-04-08] MEDS ORDERED: PRLSR20 PO (14:20)
[2017-04-08] MEDS ORDERED: BUSP5TAB59 PO (14:20)
[2017-04-08] MEDS ORDERED: FERR1TAB13 PO (14:20)
[2017-04-08] MEDS ORDERED: MECL1TAB42 PO (14:20)
[2017-04-08] MEDS ORDERED: ASCO500T3 PO (14:20)
[2017-04-08] MEDS ORDERED: NYSS/ PO (14:20)
[2017-04-08] MEDS ORDERED: LSN20 PO (14:20)
--- NOTE | 2017-04-08 14:20 | DIAGNOSTIC IMAGING REPORT ---
HEAD WITHOUT CONTRAST (CT) CLINICAL HISTORY: 76 years-old Female with altered MS. Acute altered mental status. Associated G and vomiting. TECHNIQUE: Multiple axial CT images of the head were obtained without contrast. A dose lowering technique was utilized adhering to the principles of ALARA. CT DOSE: 1170.52 mGy.cm COMPARISON: CT head 12/05/2016.. FINDINGS: No acute intracranial hemorrhage, midline shift, mass, large territorial ischemia or abnormal extra-axial collection. Note is made of cavum septum lucidum. There is mild atrophy with ex vacuo tracheomegaly. Patchy areas of low attenuation within the periventricular white matter are again seen suggesting chronic microvascular ischemic changes. Focal area of low attenuation within the right caudate nucleus is unchanged suggesting remote lacunar infarction. 6 mm low attenuating focus of the mid left cerebellar hemisphere is also unchanged suggesting remote lacunar infarction. The calvarium is intact. The paranasal sinuses, mastoid air cells, and middle ear cavities are clear. IMPRESSION: 1. No acute intracranial abnormality. 2. Chronic age-related findings of atrophy, chronic microvascular ischemic changes and remote lacunar infarctions. The above report was generated using voice recognition software. It may contain grammatical, syntax or spelling errors. Electronically signed by: Cleveland Pereyra M.D. 04/08/2017 2:19 PM Dictated Date/Time: 04/08/2017 2:14 PM
[2017-04-08] MEDS ORDERED: SODIUM CHLORIDE 0.9% 1000ML 1,000 ML IV STA (14:21)
[2017-04-08 14:24] LABS: ALB/GLOB RATIO 0.8 (0.9-2); C-REACTIVE PROTEIN 1.24 mg/dl (0-0.29); CKMB/CK RATIO 8.1 (0-3.0); PHOSPHORUS 2.2 mg/dl (2.5-4.9); THYROID STIMULATING HORMONE 0.369 uIu/ml (0.300-4.500)
[2017-04-08] MEDS ORDERED: BACL10TA PO (14:25)
[2017-04-08] MEDS ORDERED: DIPH1TAB PO (14:25)
[2017-04-08] MEDS ORDERED: MULTCHW PO (14:25)
[2017-04-08 14:26] LABS: PARTIAL THROMBOPLASTIN RATIO 1.1; PROTHROMBIN TIME (PATIENT) 11.2 SECONDS (9.0-12.0)
--- NOTE | 2017-04-08 14:30 | DIAGNOSTIC IMAGING REPORT ---
CT SCAN OF THE ABDOMEN AND PELVIS WITHOUT IV CONTRAST CLINICAL HISTORY: Vomiting. Generalized abdominal pain. COMPARISON STUDY: Abdominal CT dated 03/11/2017. TECHNIQUE: CT scan of the abdomen and pelvis is performed from the lung bases to the proximal femora. Images are reviewed in the axial, sagittal, and coronal planes. IV contrast was not administered for this examination as per the referring clinician. Note that the examination was performed and significant suboptimal fashion without oral and IV contrast. The examination is also greater by streak artifact from the patient's arms which could not be elevated above the abdomen and motion artifact. A dose lowering technique was utilized adhering to the principles of ALARA. FINDINGS: Lung bases: The heart is normal in size and without pericardial effusion. The mitral annulus is densely calcified. The lung bases are clear noting dependent atelectasis. There is a small to moderate hiatal hernia. Liver: The unenhanced liver is normal in size, contour, and attenuation. There is no intrahepatic biliary ductal dilatation. Gallbladder: There are numerous layering calcified gallstones. The gallbladder is otherwise normal in appearance. Spleen: Normal in size and attenuation. Pancreas: There is near complete fatty atrophy of the pancreas. Adrenal glands: Unremarkable. Kidneys: The unenhanced kidneys are atrophic and without hydronephrosis. There are no renal calculi identified. There is no evidence of contour deforming renal mass lesion. Abdominal vasculature: The abdominal aorta is normal in course and caliber noting advanced atherosclerotic calcification. Bowel: There is no bowel obstruction. A metallic density is incidentally noted within the lumen of the right colon on image #[id number]. There is moderate diverticulosis of the left colon without CT evidence of acute diverticulitis. The appendix is well-visualized and normal. Peritoneum: There is no intraperitoneal free air or abdominal ascites. Lymphadenopathy: None. Pelvic viscera: The bladder is decompressed and grossly unremarkable. The uterus and adnexa are grossly unremarkable Skeletal structures: The skeletal structures are heterogeneously osteopenic. There is advanced lumbosacral spondylosis. Large posterior discussed by complex is likely contribute to multilevel acquired compromise of the central canal. Sclerotic degenerative change is noted in the sacroiliac joints. No lytic or blastic lesions are seen. IMPRESSION: 1. Suboptimal examination without oral and IV contrast. The examination is also degraded by streak and motion artifact. 2. No acute infectious or inflammatory findings are identified in the abdomen or pelvis. 3. There is moderate diverticulosis of left colon without CT evidence of acute diverticulitis. 4. Cholelithiasis. 5. Hiatal hernia. 6. Additional findings as above. Electronically signed by: Sumit Guerrero M.D. 04/08/2017 2:29 PM Dictated Date/Time: 04/08/2017 2:21 PM
[2017-04-08 14:38] LABS: BENZODIAZEPINE, URINE NEG (NEG); COCAINE,URINE NEG (NEG); PHENCYCLIDINE, URINE NEG (NEG)
[2017-04-08 14:46] LABS: VENOUS BLOOD GAS PCO2 48 mmHg (38.0-50.0); VENOUS BLOOD GAS PO2 29 mmHg
[2017-04-08 14:47] LABS: VEN BLD GAS O2 SATURATION < 60.0 %
[2017-04-08] MEDS ORDERED: ACETAMINOPHEN 325 MG TAB PO PRN (16:30)
[2017-04-08] MEDS ORDERED: LEVOFLOXACIN CONSULT ACTIVE PRN (16:45)
[2017-04-08] MEDS: MoRPHine SULFATE 4 MG/ML 1 ML CARP\\VIAL IV PRN ×2 (17:04→21:33)
[2017-04-08] MEDS: ONDANSETRON INJ 2 MG/ML 2 ML VIAL IV PRN (17:04)
[2017-04-08] MEDS ORDERED: RIBO100C PO (17:07)
[2017-04-08] MEDS ORDERED: MAGN400C2 PO (17:07)
[2017-04-08] MEDS ORDERED: LISI10TA PO (17:07)
[2017-04-08] MEDS ORDERED: PRED-301 PO (17:07)
[2017-04-08] MEDS ORDERED: SENNTAB23 PO (17:07)
[2017-04-08] MEDS ORDERED: LACT15SO PO (17:07)
[2017-04-08] MEDS ORDERED: ZNTT/150 PO (17:07)
[2017-04-08] MEDS ORDERED: POTA20TA13 PO (17:07)
[2017-04-08] MEDS ORDERED: SIME1CHW17 PO (17:07)
[2017-04-08] MEDS ORDERED: PANT1TAB48 PO (17:07)
[2017-04-08] MEDS: SODIUM CHLORIDE 0.9% 1000ML 1,000 ML IV SCH (17:08)
[2017-04-08] MEDS ORDERED: ASPEC81 PO (17:09)
[2017-04-08] MEDS ORDERED: MECLIZINE HCL 12.5 MG TAB PO PRN (17:15)
--- NOTE | 2017-04-08 18:28 | History and Physical ---
History & Physical Date & Time of Service: Apr 08, 2017 at 17:54 Chief Complaint: Altered Mental Status Primary Care Physician: Markell Kline M.D. History of Present Illness 76 year old female who presents to the ER with altered mental status and persistent vomiting. Patient was recently admitted to [facility] 03/11 - 03/12 for persistent vomiting, E. Coli UTI, and hyponatremia. Patient underwent EGD that showed a tortuous esophagus and large hiatal hernia. Esophageal dilation was preformed. She received Ceftriaxone for the UTI and was discharged home on Cefuroxime to complete the course. Hyponatremia responded well to IVF. Patient' s daughter is at the bedside and reports that she has been doing well up until 6 days ago. She has has persistent vomiting and has been unable to keep anything down. She has not been able to take her pills. She describes emesis as green and bilious in nature. She denies hematemesis or coffee ground emesis. No abdominal pain or diarrhea. Patient has generalized weakness that has progressively gotten worse. Daughter reports she typically can ambulate with a walker however has been bed bound for the past couple of days. No chest pain or shortness of breath. Denies fever and chills. No urinary symptoms but developed bladder pain today. In the ER, patient's U/A suggests possible UTI. Labs show a mild hypokalemia, hypophosphatemia, and hyponatremia. She was given IVF and IV Levaquin. Past Medical/Surgical History Medical Problems: (1) CKD (chronic kidney disease), stage III Status: Chronic (2) Depression Status: Chronic (3) Diabetes mellitus type 2, diet-controlled Status: Chronic (4) Diabetic neuropathy Status: Chronic (5) Dyslipidemia Status: Chronic (6) Gastric ulcer Status: Chronic (7) HTN (hypertension) Status: Chronic (8) Hypothyroid Status: Chronic (9) KENIA (iron deficiency anemia) Status: Chronic (10) Osteoarthritis Status: Chronic (11) Rectal prolapse Permanent Comment: s/p repair Status: Chronic (12) Rectocele Permanent Comment: s/p repair Status: Chronic Surgical Problems: (1) H/O shoulder surgery Status: Chronic (2) H/O umbilical hernia repair Status: Chronic Family History Diabetes mellitus FATHER SISTER FH: CAD (coronary artery disease) MOTHER Stroke BROTHER Social History Smoking Status: Never Smoker Alcohol Use: none Immunizations History of Influenza Vaccine: Yes Influenza Vaccine Date: Apr 29, 2016 History of Tetanus Vaccine?: Yes Tetanus Immunization Date: Feb 29, 2008 History of Pneumococcal: Yes Pneumococcal Date: Apr 29, 2016 Multi-Drug Resistant Organisms History of MDRO: No Allergies Coded Allergies: Gabapentin (Verified Allergy, Severe, MOUTH SWELLS, 04/08/17) Pregabalin (Verified Allergy, Severe, MOUTH SWELLS, 04/08/17) Home Medications Scheduled Aspirin (Aspirin EC Low Dose), 81 MG PO DAILY Ferrous Sulfate (Kp Ferrous Sulfate), 1 TAB PO DAILY Fluticasone Propionate (Nasal) (Flonase Allergy Relief), 2 SPRAYS FELIPE QAM Latanoprost (Xalatan 0.005% Oph Chanelle), 1 DROP OPB BID Levothyroxine Sodium (Synthroid), 75 MCG PO QAM Lidocaine Hcl (Mouth-Throat) (Lidocaine Hcl), 2 TBS PO UD Lisinopril (Prinivil), 1 TAB PO BID Loratadine (Claritin), 10 MG PO HS Magnesium Oxide (Magnesium Oxide), 1 CAP PO BID Multiple Vitamins W/ Minerals (Centrum Silver), 1 TAB PO QAM Nystatin/Triamcinolone (Mycolog ||), 1 APPL TOP BID Oxycodone HCl (Oxycodone HCl ER), 30 MG PO Q12 Pantoprazole (Protonix), 40 MG PO DAILY Potassium Chloride Microencaps (Potassium Chloride Er), 1 TAB PO DAILY Prednisone (Prednisone), 5 MG PO DAILY Ranitidine (Zantac), 150 MG PO HS Riboflavin (Riboflavin), 100 MG PO DAILY Sennosides-Docusate Sodium (Stool Softener), 1 TAB PO BID Simvastatin (Zocor), 20 MG PO HS Venlafaxine Hcl (Effexor Extended Rel), 150 MG PO DAILY Vitamin E (E-400), 1 TAB PO QAM Scheduled PRN Fluocinolone Acetonide (Fluocinolone Acetonide), 1 APPLN TOP BID PRN for rash Furosemide (Lasix), 20 MG PO QAM PRN for FLUID RET Lactulose (Constulose), 30 ML PO TID PRN for Constipation Magic Swizzle (Magic Swizzle - SUCRALFA/ALUM/MAG/DIPHEN/LIDO), 3-4 TSP PO Q4-6H PRN for MOUTH ULCERS Meclizine Hcl (Meclizine Hcl), 1 TAB PO TID PRN for Dizziness or Vertigo Nystatin (Nystatin Suspension), 5 ML PO QID PRN for THRUSH Nystatin (Topical) (Nystatin), 1 APPL TOP TID PRN for RASH Polyethylene Glycol 3350 (Miralax), 17 GM PO DAILY PRN for Constipation Simethicone (Gas Relief), 1 TAB PO QID PRN for prn Review of Systems ROS per HPI, all other systems reviewed and negative Physical Exam Vital Signs Date Time Temp Pulse Resp B/P (MAP) Pulse Ox O2 Delivery O2 Flow Rate FiO2 04/08/17 16:52 132 16 112/83 95 Room Air 04/08/17 15:07 36.6 99 18 91/60 93 Room Air 04/08/17 13:56 89 20 117/75 94 Room Air 04/08/17 13:28 96 Room Air 04/08/17 13:21 90 04/08/17 12:55 35.7 80 22 144/91 95 Room Air General Appearance: no apparent distress Head: normocephalic, atraumatic Eyes: normal inspection, sclerae normal ENT: hearing grossly normal Neck: supple, no JVD Respiratory/Chest: lungs clear, normal breath sounds, no respiratory distress Cardiovascular: regular rate, rhythm, no edema, normal peripheral pulses Abdomen/GI: normal bowel sounds, non tender, soft Extremities/Musculoskelatal: normal inspection, no calf tenderness Neurologic/Psych: alert, normal mood/affect, oriented x 3, + pertinent finding (patient generally weak, no gorss focal deficits noted) Skin: normal color, warm/dry Diagnostics Laboratory Results Results Past 24 Hours Test 04/08/17 13:00 04/08/17 13:21 04/08/17 13:25 04/08/17 14:35 Range/Units Urine Color YELLOW Urine Appearance CLEAR CLEAR Urine pH 7.0 4.5-7.5 Urine Specific [place] 1.014 1.000-1.030 Urine Protein NEG NEG Urine Glucose (UA) 2+ NEG Urine Ketones 1+ NEG Urine Occult Blood 1+ NEG Urine Nitrite NEG NEG Urine Bilirubin NEG NEG Urine Urobilinogen NEG NEG Urine Leukocyte Esterase LARGE NEG Urine WBC (Auto) >30 0-5 /hpf Urine RBC (Auto) 0-4 0-4 /hpf Urine Hyaline Casts (Auto) 1-5 0-5 /lpf Urine Epithelial Cells (Auto) >30 0-5 /lpf Urine Bacteria (Auto) NEG NEG Urine Renal Epithelial Cells 5-10 0-5 /lpf Bedside Glucose 142 70-90 mg/dl Urine Opiates Screen NEG NEG Urine Methadone, Qualitative NEG NEG Urine Barbiturates NEG NEG Urine Phencyclidine (PCP) Level NEG NEG Ur Amphetamine/Methamphetamine NEG NEG MDMA (Ecstasy) Screen NEG NEG Urine Benzodiazepines Screen NEG NEG Urine Cocaine Metabolite NEG NEG Urine Marijuana (THC) NEG NEG Bedside Lactic Acid Venous 1.41 0.90-1.70 mmol/L White Blood Count 8.72 4.8-10.8 K/uL Red Blood Count 5.23 4.2-5.4 M/uL Hemoglobin 15.3 12.0-16.0 g/dL Hematocrit 46.4 37-47 % Mean Corpuscular Volume 88.7 80-100 fL Mean Corpuscular Hemoglobin 29.3 25-34 pg Mean Corpuscular Hemoglobin Concent 33.0 32-36 g/dl Platelet Count 179 130-400 K/uL Mean Platelet Volume 10.0 7.4-10.4 fL Neutrophils (%) (Auto) 82.3 % Lymphocytes (%) (Auto) 9.5 % Monocytes (%) (Auto) 5.7 % Eosinophils (%) (Auto) 1.7 % Basophils (%) (Auto) 0.1 % Neutrophils # (Auto) 7.17 1.4-6.5 K/uL Lymphocytes # (Auto) 0.83 1.2-3.4 K/uL Monocytes # (Auto) 0.50 0.11-0.59 K/uL Eosinophils # (Auto) 0.15 0-0.5 K/uL Basophils # (Auto) 0.01 0-0.2 K/uL RDW Standard Deviation 44.6 36.4-46.3 fL RDW Coefficient of Variation 13.7 11.5-14.5 % Immature Granulocyte % (Auto) 0.7 % Immature Granulocyte # (Auto) 0.06 0.00-0.02 K/uL Erythrocyte Sedimentation Rate 9 0-21 mm/hr Prothrombin Time 11.2 9.0-12.0 SECONDS Prothromb Time International Ratio 1.0 0.9-1.1 Activated Partial Thromboplast Time 27.4 21.0-31.0 SECONDS Partial Thromboplastin Ratio 1.1 Sodium Level 132 136-145 mmol/L Potassium Level 3.1 3.5-5.1 mmol/L Chloride Level 91 98-107 mmol/L Carbon Dioxide Level 29 21-32 mmol/L Anion Gap 12.0 3-11 mmol/L Blood Urea Nitrogen 26 7-18 mg/dl Creatinine 1.20 0.60-1.20 mg/dl Est Creatinine Clear Calc Drug Dose 38.5 ml/min Estimated GFR () 51.6 Estimated GFR (Non- 44.5 BUN/Creatinine Ratio 21.3 10-20 Random Glucose 158 70-99 mg/dl Calcium Level 8.0 8.5-10.1 mg/dl Phosphorus Level 2.2 2.5-4.9 mg/dl Magnesium Level 1.8 1.8-2.4 mg/dl Total Bilirubin 1.0 0.2-1 mg/dl Aspartate Amino Transf (AST/SGOT) 27 15-37 U/L Alanine Aminotransferase (ALT/SGPT) 15 12-78 U/L Alkaline Phosphatase 71 45-117 U/L Ammonia < 10.0 11-32 umol/L Total Creatine Kinase 48 26-192 U/L Creatine Kinase MB 3.9 0.5-3.6 ng/ml Creatine Kinase MB Ratio 8.1 0-3.0 Troponin I 0.039 0-0.045 ng/ml C-Reactive Protein 1.24 0-0.29 mg/dl Pro-B-Type Natriuretic Peptide 1471 0-900 pg/ml Total Protein 5.5 6.4-8.2 gm/dl Albumin 2.4 3.4-5.0 gm/dl Globulin 3.1 2.5-4.0 gm/dl Albumin/Globulin Ratio 0.8 0.9-2 Lipase 343 73-393 U/L Thyroid Stimulating Hormone (TSH) 0.369 0.300-4.500 uIu/ml Free Thyroxine 1.62 0.80-1.60 ng/dl Venous Blood pH 7.42 7.36-7.41 Venous Blood Partial Pressure CO2 48 38.0-50.0 mmHg Venous Blood Partial Pressure O2 29 mmHg Venous Blood HCO3 30 mmol/L Venous Blood Oxygen Saturation < 60.0 % Venous Blood Base Excess 5.0 mEq/L Microbiology Results 04/08/17 Blood Culture, Received Pending 04/08/17 Blood Culture, Received Pending 04/08/17 Urine Culture, Received Pending Diagnostic Radiology HEAD CT IMPRESSION: 1. No acute intracranial abnormality. 2. Chronic age-related findings of atrophy, chronic microvascular ischemic changes and remote lacunar infarctions. CXR IMPRESSION: No acute cardiopulmonary process. CT ABD/PELVIS IMPRESSION: 1. Suboptimal examination without oral and IV contrast. The examination is also degraded by streak and motion artifact. 2. No acute infectious or inflammatory findings are identified in the abdomen or pelvis. 3. There is moderate diverticulosis of left colon without CT evidence of acute diverticulitis. 4. Cholelithiasis. 5. Hiatal hernia. Impression Assessment and Plan INTRACTABLE VOMITING - admit to med/surg - patient presenting with persistent vomiting and inability to tolerate PO x 6 days; had recent admission to [facility] 03/11 - 03/12 for similar symptoms and underwent EGD that showed tortuous esophagus and hiatal hernia (both of which were felt to be contributing to patient's symptoms); s/p esophageal dilation; noted negative biopsies - suspect today's presenting symptoms are due to the above; during my time with the patient she stated multiple times that she does not want any further tests or procedures - it was discussed with the daughter that if the patient does not want any interventions that palliative care may be an option - for now will give clear liquid diet and have GI evaluate the patient tomorrow for further recommendations POSSIBLE UTI - during recent admission patient's culture grew a pansensitive E. Coli - treated with IV ceftriaxone and d/c'd on PO cefuroxime to complete course - U/A abnormal today - s/p IV Levaquin in the ED, will continue with IV ceftriaxone tomorrow - adjust per culture results HYPONATREMIA, HYPOPHOSPHATEMIA, HYPOKALEMIA - mild, due to GI loss with persistent vomiting - gentle IVF, replace electrolytes, follow up labs in the AM HTN - BP controlled, continue lisinopril HX TIA - Plavix recently d/c'd and started on Aspirin by PCP due to reports of "coffee ground" emesis - no further coffee ground emesis, hgb stable - continue ASA DM, DIET CONTROLLED - hgb a1c 5.9 01/2017 - check BSGs ACHS CKD STAGE III - baseline creat runs in the mid 1's - creat noted to be 1.2 today - continue to monitor, avoid nephrotoxic agents when able OSTEOARTHRITIS, CHRONIC BACK PAIN - continue chronic prednisone and OxyContin (morphine ordered for break through if patient unable to tolerate PO) DVT PROPHYLAXIS - SQ Heparin CODE STATUS - Patient is a full code without mechanical ventilation as per my discussion with the patient and her daughter who is at the bedside. DISPO - In my clinical judgment this beneficiary meets acute admission criteria, established by [facility], that includes being hospitalized through two midnights. - Case management, PT/OT - noted that patient will be transferring care to Dr. Acosta ([facility] [place]) following this admission Attending addendum: Agree with the above H&P; please refer to above for more details. Patient is a 76 yo female who was brought to the hospital by her daughter for complaints of vomiting, early satiety, and generalized weakness. She has not been able to eat or drink since Thursday per the daughter. The patient states she is miserable and is tired of coming back to the hospital and just wants to go home and does not want any invasive treatments. She is agreeable to talking with Palliative care but her daughter is not. The patient reports feeling full, N/V, weak and tired. I had a very long conversation with the patient and her daughter regarding goals of care, options for treatments and care. Cardiac: RR, S1 and S2 auscultated Respiratory: diminished breath sounds, otherwise clear, no wheezes/rales/rhonchi GI: soft, ND, + BS; subjective tenderness diffusely, no hepatosplenomegaly Recurrent Vomiting: -patient has hx of tortuous esophagus s/p dilation, and large hiatal hernia -also appears to have a UTI; continue empiric abx until urine culture returns -GI consulted -PRN anti-emetics -clear liquid diet, advance as tolerated -electrolyte derangements likely related to this and poor PO intake -hydrate with IV fluids VTE Prophylaxis VTE Risk Assessment Done? Y/N: Yes Risk Level: Moderate
[2017-04-08] MEDS: POTASSIUM CHLR 10 MEQ / WTR 10 MEQ in PREMIXED WATER 100 ML IV SCH ×4 (19:36→23:43)
[2017-04-08] MEDS: POT PHOSPHATE MONOBASIC W/ SOD TAB PO SCH ×2 (19:38→20:54)
[2017-04-08 20:30] VITALS: BP 127/88; PULSE 104; TEMP 36.8; O2SAT 93; Ht 152.4 cm; Wt 63.4 kg
[2017-04-08] MEDS: DOCUSATE SODIUM/SENNA 50/8.6MG TAB PO SCH (20:53)
[2017-04-08] MEDS: MAGNESIUM OXIDE 400 MG TAB PO SCH (20:53)
[2017-04-08] MEDS: LISINOPRIL 10 MG TAB PO SCH (20:54)
[2017-04-08] MEDS: OXYCODONE HCL 10 MG TABCR (OXYCONTIN) PO SCH (20:54)
[2017-04-08] MEDS ORDERED: SIMVASTATIN 20 MG TAB PO SCH (21:00)
[2017-04-08] MEDS ORDERED: OXYCODONE HCL 10 MG TABCR (OXYCONTIN) PO SCH (21:00)
[2017-04-08] MEDS ORDERED: LORATADINE 10 MG TAB PO SCH (21:00)
[2017-04-08] MEDS ORDERED: RANITIDINE HCL 150 MG TAB PO SCH (21:00)
[2017-04-08] MEDS: LATANOPROST 0.005% OP SOLN 2.5 ML BTL OPB SCH (21:11)
[2017-04-08] MEDS: HEPARIN SOD 5000 UNIT/0.5 ML CARP SQ SCH (21:15)
[2017-04-08] MEDS: FAMOTIDINE IV INJ 20 MG in DEXTROSE 5% 100ML 100 ML IV SCH (21:33)
[2017-04-08 23:47] VITALS: BP 165/108; PULSE 77; TEMP 36.5; O2SAT 98
[2017-04-09] MEDS: MoRPHine SULFATE 4 MG/ML 1 ML CARP\\VIAL IV PRN ×2 (03:52→21:18)
[2017-04-09] MEDS: ONDANSETRON INJ 2 MG/ML 2 ML VIAL IV PRN (03:52)
[2017-04-09] MEDS: SODIUM CHLORIDE 0.9% 1000ML 1,000 ML IV SCH ×2 (04:49→17:30)
[2017-04-09] MEDS: HEPARIN SOD 5000 UNIT/0.5 ML CARP SQ SCH ×3 (05:46→21:20)
[2017-04-09] MEDS ORDERED: LEVOTHYROXINE 75 MCG TAB PO SCH (06:30)
[2017-04-09 06:54] LABS: HEMATOCRIT 43.1 % (37-47); MEAN CELL VOLUME 89.8 fL (80-100); MEAN CORPUSCULAR HEMOGLOBIN 29.6 pg (25-34); MEAN CORPUSCULAR HGB CONC 32.9 g/dl (32-36); MEAN PLATELET VOLUME 9.4 fL (7.4-10.4); PLATELET COUNT 148 K/uL (130-400); WHITE BLOOD COUNT 9.45 K/uL (4.8-10.8)
[2017-04-09 07:22] VITALS: BP 110/60; PULSE 60; TEMP 37; O2SAT 97
[2017-04-09 07:29] LABS: BUN/CREATININE RATIO 17.9 (10-20); CALCIUM 7.1 mg/dl (8.5-10.1); CREATININE 0.83 mg/dl (0.60-1.20); MAGNESIUM 1.4 mg/dl (1.8-2.4); POTASSIUM 3.5 mmol/L (3.5-5.1)
[2017-04-09 07:32] LABS: PHOSPHORUS 1.6 mg/dl (2.5-4.9)
[2017-04-09] MEDS ORDERED: ASPIRIN 81 MG ECTAB PO SCH (08:00)
[2017-04-09] MEDS ORDERED: FERROUS SULFATE 325 MG TAB PO SCH (08:00)
[2017-04-09] MEDS ORDERED: TOCOPHERYL, DL-ALPHA 400 INTER.UNIT CAP PO SCH (08:00)
[2017-04-09] MEDS ORDERED: RIBOFLAVIN 100 MG PO SCH (08:00)
[2017-04-09] MEDS ORDERED: POTASSIUM CHLORIDE 20 MEQ TABCR PO SCH (08:00)
[2017-04-09] MEDS: POT PHOSPHATE MONOBASIC W/ SOD TAB PO SCH ×3 (08:00→16:39)
[2017-04-09] MEDS: DOCUSATE SODIUM/SENNA 50/8.6MG TAB PO SCH (08:00)
[2017-04-09] MEDS: MAGNESIUM OXIDE 400 MG TAB PO SCH (08:00)
[2017-04-09] MEDS ORDERED: CEROVITE ADV FORMULA TAB PO SCH (08:00)
[2017-04-09] MEDS: OXYCODONE HCL 10 MG TABCR (OXYCONTIN) PO SCH ×2 (08:14→21:00)
[2017-04-09] MEDS: VENLAFAXINE HCL XR 150 MG CAPXR PO SCH (08:19)
[2017-04-09] MEDS: LISINOPRIL 10 MG TAB PO SCH ×2 (08:24→21:18)
[2017-04-09] MEDS: PANTOprazole SOD 40 MG TAB PO SCH (08:27)
--- NOTE | 2017-04-09 08:58 | Clinical Documentation Query ---
CLINICAL DOCUMENTATION QUERY 76 year old female with a history of type 2 diabetes and hypertension who presents to the Emergency Room via EMS with worsening altered mental status. In your clinical opinion is this patient being managed for: ( ) Metabolic encephalopathy in setting of UTI, hyponatremia, hypokalemia, and hypophosphatemia. ( x ) Not Agree ( ) Other explanation of clinical findings (Please Explain) ( ) Unable to determine (Please Define) ( ) Need to Discuss The medical record reflects the following clinical findings, treatment, and risk factors. Clinical Indicators: AMS, not follow commands nor responding to verbal stimuli. Na 132, K+3.1, Phosphorus 2.2. UTI Treatment: IV NSS, IV Potassium, PO Phos, IV Levaquin Risk Factors: Age, ?UTI, electrolyte imbalances Please clarify and document your clinical opinion in the progress notes and discharge summary. Terms such as "probable", "suspected", "likely", "questionable", "possible", or "still to be ruled out" are acceptable. IF IN AGREEMENT, YOU MUST DOCUMENT ABOVE DIAGNOSTIC STATEMENT IN DAILY PROGRESS NOTES AND DISCHARGE SUMMARY. This document is not part of the patient's record. Thank You, Zach Justice, RN [phone]
[2017-04-09] MEDS ORDERED: [UNRECOGNIZED DRUG - OTHER] IV SCH (11:15)
[2017-04-09] MEDS ORDERED: SODIUM PHOSPHATE IV SCH (11:15)
[2017-04-09] MEDS ORDERED: MAG SULFATE IV SCH (11:15)
--- NOTE | 2017-04-09 14:00 | Gastrointestinal Consultation ---
Gastrointestinal Consultation Date of Consultation: Apr 09, 2017 Attending Physician: Celina Hidalgo Consulting Physician: Antwon Nava Reason for Consultation: N/V, tortorous esophagus, hiatal hernia History of Present Illness Patient is a 76 year old female who was brought to ED by her daughter for weakness and also not able to swallow much PO food since last Thursday. In speaking w pt today, it is noted that she is having a hard time finding words to answer my questions, also mostly oriented to self and place only. She had asked several times if she can go home. Her daughter Eliana Hernandes provided most of the information for this HPI. Pt had several admissions at this hospital within the last 3 months for hyponatremia, UTI (Ecoli), possible TIA which was ruled out ? migraines symptoms. She was recently DC'd on 03/12/17. During last hospitalization stay, she had been seen by NILA Purcell and Dr. Campbell for dysphagia and vomiting symptoms. She had hx gastric ulcer disease, severe gastritis but no Hpylori infection. 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 She was advised to modify her diet to having "gastroparesis" type food consistency. After her dilation, she had gone home and able to eat some soft solids but not much. Overall didn't really feel the dilation made any much difference in her swallowing. She still experiences pressure on her neck area when swallowing. Also can get abd pain across mid abd area hours after eating. Mild nausea, and would vomit up food between 20 mins to 2 hours after eating depending on food consistency. Denies any coughing with swallowing. Eliana Hernandes felt pt was getting weaker and last Thursday pt would even vomit up clear liquids. Since admission, she was able to tolerate sips of fluids or spoonfuls of Jello, broth w/o vomiting. She was able to also swallow her pills. Labs reviewed: No leukocytosis or coagulopathy, UA w possible UTI, Urine cx growing probably pseudomonas species. She had received a dose of Levaquin last night. CMP showed several electrolyte abnormalities low: K, NA, PO4, Mg, Ca. Head CT showed chronic changes; CXR unremarkable; Abd/pelvis CT w/o signs of infectious/obstructive processes, or diverticulitis. Past Medical/Surgical History Medical Problems: (1) Acute kidney injury Status: Acute (2) Constipation Status: Acute (3) Hypomagnesemia Status: Acute (4) Hyponatremia Status: Acute (5) Non-STEMI (non-ST elevated myocardial infarction) Status: Acute (6) Vomiting Status: Acute (7) Weakness Status: Acute Past Medical History: Medical Problems: (1) CKD (chronic kidney disease), stage III Status: Chronic (2) Depression Status: Chronic (3) Diabetes mellitus type 2, diet-controlled Status: Chronic (4) Diabetic neuropathy Status: Chronic (5) Dyslipidemia Status: Chronic (6) Gastric ulcer Status: Chronic (7) HTN (hypertension) Status: Chronic (8) Hypothyroid Status: Chronic (9) KENIA (iron deficiency anemia) Status: Chronic (10) Osteoarthritis Status: Chronic (11) Rectal prolapse Permanent Comment: s/p repair Status: Chronic (12) Rectocele Permanent Comment: s/p repair Status: Chronic Surgical Problems: (1) H/O shoulder surgery Status: Chronic (2) H/O umbilical hernia repair Status: Chronic Past Surgical History: Surgical Problems: (1) H/O shoulder surgery Status: Chronic (2) H/O umbilical hernia repair Status: Chronic Family History Diabetes mellitus FATHER SISTER FH: CAD (coronary artery disease) MOTHER Stroke BROTHER Social History Smoking Status: Never Smoker Alcohol Use: none Drug Use: none Marital Status: Housing Status: lives with significant other Allergies Coded Allergies: Gabapentin (Verified Allergy, Severe, MOUTH SWELLS, 04/08/17) Pregabalin (Verified Allergy, Severe, MOUTH SWELLS, 04/08/17) Current Medications Home Meds and Scripts Medications Dose Route/Sig Max Daily Dose Days Date Category Dose Instructions Aspirin EC Low Dose (Aspirin) 81 Mg Ectab 81 Mg PO DAILY 04/08/17 Reported Prednisone 5 Mg Tab 5 Mg PO DAILY 04/08/17 Reported Gas Relief (Simethicone) 80 Mg Chw 1 Tab PO QID PRN 04/08/17 Reported Riboflavin 100 Mg Cap 100 Mg PO DAILY 04/08/17 Reported Zantac (Ranitidine HCl) 150 Mg Tab 150 Mg PO HS 04/08/17 Reported Protonix (Pantoprazole) 40 Mg Tab 40 Mg PO DAILY 04/08/17 Reported Magnesium Oxide 400 Mg Cap 1 Cap PO BID 90 04/08/17 Reported Potassium Chloride Er (Potassium Chloride Microencaps) 20 Meq Tab 1 Tab PO DAILY 30 04/08/17 Reported Constulose (Lactulose) 10 Gm/15 Ml Chanelle 30 Ml PO TID PRN 04/08/17 Reported Stool Softener (Sennosides-Docusate Sodium) 1 Tab Tab 1 Tab PO BID 04/08/17 Reported Prinivil (Lisinopril) 10 Mg Tab 1 Tab PO BID 90 04/08/17 Reported Centrum Silver (Multiple Vitamins W/ Minerals) 1 Chw Chw 1 Tab PO QAM 04/08/17 Reported Nystatin Suspension (Nystatin) 1 Ml Susp 5 Ml PO QID PRN 04/08/17 Reported Kp Ferrous Sulfate (Ferrous Sulfate) 325 Mg Tab 1 Tab PO DAILY 04/08/17 Reported Meclizine Hcl 25 Mg Tab 1 Tab PO TID PRN 04/08/17 Reported Effexor Extended Rel (Venlafaxine Hcl) 150 Mg Cap 150 Mg PO DAILY 01/15/17 Reported Miralax (Polyethylene Glycol 3350) 1 Pow Pow 17 Gm PO DAILY PRN 12/18/16 Reported Fluocinolone Acetonide Unknown Strength Cre 1 Appln TOP BID PRN 11/25/16 Reported Lidocaine Hcl (Lidocaine Hcl (Mouth-Throat)) 2 % Chanelle 2 Tbs PO UD 11/25/16 Reported COAT MOUTH ULCERS Oxycodone HCl ER (Oxycodone HCl) 30 Mg Tab 30 Mg PO Q12 11/25/16 Reported Mycolog || (Nystatin/Triamcinolone Acetonide) Cr 1 Appl TOP BID 05/05/16 Reported Nystatin (Nystatin (Topical)) 1 Pow Pow 1 Appl TOP TID PRN 05/05/16 Reported Claritin (Loratadine) 10 Mg Tab 10 Mg PO HS 05/05/16 Reported E-400 (Vitamin E) 400 Unit Cap 1 Tab PO QAM 05/05/16 Reported Flonase Allergy Relief (Fluticasone Propionate (Nasal)) 50 Mcg/Act Spr 2 Sprays FELIPE QAM 05/05/16 Reported Magic Swizzle - SUCRALFA/ALUM/MAG/DIPHEN/LIDO (Magic Swizzle) 240 Ml Susp 3-4 Tsp PO Q4-6H PRN 05/05/16 Reported 100ml Sucralfate 50ml Maalox 50ml Diphenhydramine 40ml 2% Aq. Lidocaine Swish and Swallow Synthroid (Levothyroxine Sodium) 75 Mcg Tab 75 Mcg PO QAM 09/14/14 Reported Xalatan 0.005% Oph Chanelle (Latanoprost) 0.005 % Chanelle 1 Drop OPB BID 07/30/12 Reported Lasix (Furosemide) 20 Mg Tab 20 Mg PO QAM PRN 07/30/12 Reported Zocor (Simvastatin) 20 Mg Tab 20 Mg PO HS 04/22/10 Reported Review of Systems Constitutional: No fever, No chills ENT: + trouble swallowing Cardiac: No chest pain, No edema Abdomen: + pain, + nausea, + vomiting Physical Exam Date Time Temp Pulse Resp B/P (MAP) Pulse Ox O2 Delivery O2 Flow Rate FiO2 04/09/17 08:10 Room Air 04/09/17 07:22 37.0 60 18 110/60 (77) 97 Room Air 04/09/17 00:00 Room Air 04/08/17 23:47 36.5 77 18 165/108 (127) 98 Room Air 04/08/17 20:30 36.8 104 18 127/88 93 Room Air 04/08/17 16:52 132 16 112/83 95 Room Air 04/08/17 15:07 36.6 99 18 91/60 93 Room Air 04/08/17 13:56 89 20 117/75 94 Room Air General Appearance: WD/WN, no apparent distress Eyes: normal inspection, PERRL, EOMI Neck: supple, no JVD, trachea midline Respiratory/Chest: no respiratory distress, no accessory muscle use, + decreased breath sounds Cardiovascular: regular rate, rhythm, no gallop, no murmur Abdomen: normal bowel sounds, non tender, soft Extremities: normal inspection, no pedal edema, no calf tenderness Neurologic/Psych: alert, + depressed affect, + disoriented (oriented mostly to self and place) Skin: normal color, no jaundice, no rash Laboratory Results Last 24 Hours Test 04/08/17 14:35 04/09/17 06:33 04/09/17 07:51 04/09/17 11:49 Venous Blood pH 7.42 Venous Blood Partial Pressure CO2 48 mmHg Venous Blood Partial Pressure O2 29 mmHg Venous Blood HCO3 30 mmol/L Venous Blood Oxygen Saturation < 60.0 % Venous Blood Base Excess 5.0 mEq/L White Blood Count 9.45 K/uL Red Blood Count 4.80 M/uL Hemoglobin 14.2 g/dL Hematocrit 43.1 % Mean Corpuscular Volume 89.8 fL Mean Corpuscular Hemoglobin 29.6 pg Mean Corpuscular Hemoglobin Concent 32.9 g/dl RDW Standard Deviation 46.0 fL RDW Coefficient of Variation 14.0 % Platelet Count 148 K/uL Mean Platelet Volume 9.4 fL Sodium Level 137 mmol/L Potassium Level 3.5 mmol/L Chloride Level 105 mmol/L Carbon Dioxide Level 24 mmol/L Anion Gap 8.0 mmol/L Blood Urea Nitrogen 15 mg/dl Creatinine 0.83 mg/dl Est Creatinine Clear Calc Drug Dose 49.4 ml/min Estimated GFR () 80.5 Estimated GFR (Non- 69.5 BUN/Creatinine Ratio 17.9 Random Glucose 89 mg/dl Calcium Level 7.1 mg/dl Phosphorus Level 1.6 mg/dl Magnesium Level 1.4 mg/dl Bedside Glucose 75 mg/dl 138 mg/dl Impression Patient is a 76 year old female seen for dysphagia and vomiting symptoms which is suspected to be 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 Underwent EGD w dilation [address] Campbell w/o significant improvement on dysphagia. She has never a barium/video swallow eval in the past. She is going to have Speech Therapy eval today. Plan - ST eval; then may proceed w either esophagram w barium +/- video swallow eval - Diet per ST's recs though would not advance more than soft solids - I had a lenghty discussion w pt and her daughter, explained to them that since the first dilation didn't improve her symptoms much I don't think another repeat dilation should be attempted. I had the impression that pt's daughter was wondering about esophageal stent placement and I explained to her that stent placement would not be indicated nor would it be successful in this setting. Pt is also less likely to be a candidate for hiatal hernia surgery, though would defer to CT Surgery if this service is consulted. Overall pt doesn' t seem to want any further procedures or invasive testing though her daughter seems to want to pursue further workup and interventions. - Would consider Neuro eval for possible early onset dementia or old infarcts causing her dysphagia as well. I have seen, examined, and agree with the plan as outlined above by NILA [place] -given liquid and solid dysphagia, likely all motility including likely oropharyngeal dysfunction
--- NOTE | 2017-04-09 14:25 | DIAGNOSTIC IMAGING REPORT ---
HISTORY: Aspiration. Dysphagia. assess for aspiration, please schedule at 1300 TECHNIQUE: Video fluoroscopic evaluation of swallowing was performed in the AP and lateral projections by the speech pathology staff. The patient is fed nectar-thick and thin liquid barium, a barium coated wafer, and barium pudding. FLUOROSCOPY TIME: 2.7 minutes. COMPARISON STUDY: None. FINDINGS: Mild decrease in oral motility. No evidence for aspiration. Mild vallecular pooling. No significant penetration or aspiration identified. Swallowing function is within normal limits. IMPRESSION: 1. Moderate decrease in oral motility. No evidence for aspiration 2. Please see the speech pathologist report for detailed findings and recommendations. The above report was generated using voice recognition software. It may contain grammatical, syntax or spelling errors. Electronically signed by: Weston Vaz M.D. 04/09/2017 2:23 PM Dictated Date/Time: 04/09/2017 2:22 PM
[2017-04-09 16:37] VITALS: BP 121/78; PULSE 104; TEMP 36.5; O2SAT 97
[2017-04-09] MEDS ORDERED: ACETAMINOPHEN IV 650 MG in EMPTY BAG 0 ML IV PRN (18:45)
[2017-04-09] MEDS: PHENAZOPYRIDINE HCL 100 MG TAB PO SCH (21:17)
[2017-04-09] MEDS: LATANOPROST 0.005% OP SOLN 2.5 ML BTL OPB SCH (22:09)
[2017-04-09] MEDS: FAMOTIDINE IV INJ 20 MG in DEXTROSE 5% 100ML 100 ML IV SCH (22:12)
--- NOTE | 2017-04-09 22:58 | Progress Note ---
Medicine Progress Note Date & Time of Visit: Apr 09, 2017 at 13:23. Subjective video swallow today-not aspirating GI evaluation today daughter states that patient was functional one month ago, ambulating on her own , etc. her weakness is a result of the lack of eating and therefore, energy Pt denies chest pain, shortness of breath and currently is not nautious She appears emotionally overwhelmed at this time. Objective Last 8 Hrs Date Time Temp Pulse Resp B/P (MAP) Pulse Ox O2 Delivery O2 Flow Rate FiO2 04/09/17 08:10 Room Air 04/09/17 07:22 37.0 60 18 110/60 (77) 97 Room Air Physical Exam: GEN: WNWD, in no acute distress, alert and oriented to self location and to date. HEENT: NC/AT, PERRL, normal sclerae, MMM CARDIO: reg rate, S1/2 heard without m/g/r LUNGS: CTA bilaterally, no crackles, rales or wheezes, good diaphragmatic excursion ABD: soft, non-tender, non-distended, no rebound or guarding, +BS EXTREMITY: RP and DP palpable 2+ bilat, no LE swelling or edema, extremities are warm and well-perfused NEURO: CN 2-12 grossly intact MUSC: 5/5 strength throughout, no focal deficits SKIN: warm and dry Laboratory Results: 04/09/17 06:33 04/09/17 06:33 Test 04/08/17 13:00 04/08/17 13:21 04/08/17 13:25 04/08/17 14:35 Urine Color YELLOW Urine Appearance CLEAR (CLEAR) Urine pH 7.0 (4.5-7.5) Urine Specific [place] 1.014 (1.000-1.030) Urine Protein NEG (NEG) Urine Glucose (UA) 2+ (NEG) Urine Ketones 1+ (NEG) Urine Occult Blood 1+ (NEG) Urine Nitrite NEG (NEG) Urine Bilirubin NEG (NEG) Urine Urobilinogen NEG (NEG) Urine Leukocyte Esterase LARGE (NEG) Urine WBC (Auto) >30 /hpf (0-5) Urine RBC (Auto) 0-4 /hpf (0-4) Urine Hyaline Casts (Auto) 1-5 /lpf (0-5) Urine Epithelial Cells (Auto) >30 /lpf (0-5) Urine Bacteria (Auto) NEG (NEG) Urine Renal Epithelial Cells 5-10 /lpf (0-5) Urine Opiates Screen NEG (NEG) Urine Methadone, Qualitative NEG (NEG) Urine Barbiturates NEG (NEG) Urine Phencyclidine (PCP) Level NEG (NEG) Ur Amphetamine/Methamphetamine NEG (NEG) MDMA (Ecstasy) Screen NEG (NEG) Urine Benzodiazepines Screen NEG (NEG) Urine Cocaine Metabolite NEG (NEG) Urine Marijuana (THC) NEG (NEG) Bedside Lactic Acid Venous 1.41 mmol/L (0.90-1.70) Immature Granulocyte % (Auto) 0.7 % White Blood Count 8.72 K/uL (4.8-10.8) Red Blood Count 5.23 M/uL (4.2-5.4) Hemoglobin 15.3 g/dL (12.0-16.0) Hematocrit 46.4 % (37-47) Mean Corpuscular Volume 88.7 fL (80-100) Mean Corpuscular Hemoglobin 29.3 pg (25-34) Mean Corpuscular Hemoglobin Concent 33.0 g/dl (32-36) Platelet Count 179 K/uL (130-400) Mean Platelet Volume 10.0 fL (7.4-10.4) Neutrophils (%) (Auto) 82.3 % Lymphocytes (%) (Auto) 9.5 % Monocytes (%) (Auto) 5.7 % Eosinophils (%) (Auto) 1.7 % Basophils (%) (Auto) 0.1 % Neutrophils # (Auto) 7.17 K/uL (1.4-6.5) Lymphocytes # (Auto) 0.83 K/uL (1.2-3.4) Monocytes # (Auto) 0.50 K/uL (0.11-0.59) Eosinophils # (Auto) 0.15 K/uL (0-0.5) Basophils # (Auto) 0.01 K/uL (0-0.2) Immature Granulocyte # (Auto) 0.06 K/uL (0.00-0.02) Erythrocyte Sedimentation Rate 9 mm/hr (0-21) Prothrombin Time 11.2 SECONDS (9.0-12.0) Prothromb Time International Ratio 1.0 (0.9-1.1) Activated Partial Thromboplast Time 27.4 SECONDS (21.0-31.0) Partial Thromboplastin Ratio 1.1 Total Bilirubin 1.0 mg/dl (0.2-1) Aspartate Amino Transf (AST/SGOT) 27 U/L (15-37) Alanine Aminotransferase (ALT/SGPT) 15 U/L (12-78) Alkaline Phosphatase 71 U/L (45-117) Ammonia < 10.0 umol/L (11-32) Total Creatine Kinase 48 U/L (26-192) Creatine Kinase MB 3.9 ng/ml (0.5-3.6) Creatine Kinase MB Ratio 8.1 (0-3.0) Troponin I 0.039 ng/ml (0-0.045) C-Reactive Protein 1.24 mg/dl (0-0.29) Pro-B-Type Natriuretic Peptide 1471 pg/ml (0-900) Total Protein 5.5 gm/dl (6.4-8.2) Albumin 2.4 gm/dl (3.4-5.0) Globulin 3.1 gm/dl (2.5-4.0) Albumin/Globulin Ratio 0.8 (0.9-2) Lipase 343 U/L (73-393) Thyroid Stimulating Hormone (TSH) 0.369 uIu/ml (0.300-4.500) Free Thyroxine 1.62 ng/dl (0.80-1.60) Venous Blood pH 7.42 (7.36-7.41) Venous Blood Partial Pressure CO2 48 mmHg (38.0-50.0) Venous Blood Partial Pressure O2 29 mmHg Venous Blood HCO3 30 mmol/L Venous Blood Oxygen Saturation < 60.0 % Venous Blood Base Excess 5.0 mEq/L Test 04/09/17 06:33 04/09/17 20:32 Red Blood Count 4.80 M/uL (4.2-5.4) Mean Corpuscular Volume 89.8 fL (80-100) Mean Corpuscular Hemoglobin 29.6 pg (25-34) Mean Corpuscular Hemoglobin Concent 32.9 g/dl (32-36) RDW Standard Deviation 46.0 fL (36.4-46.3) RDW Coefficient of Variation 14.0 % (11.5-14.5) Mean Platelet Volume 9.4 fL (7.4-10.4) Anion Gap 8.0 mmol/L (3-11) Est Creatinine Clear Calc Drug Dose 49.4 ml/min Estimated GFR () 80.5 Estimated GFR (Non- 69.5 BUN/Creatinine Ratio 17.9 (10-20) Calcium Level 7.1 mg/dl (8.5-10.1) Phosphorus Level 1.6 mg/dl (2.5-4.9) Magnesium Level 1.4 mg/dl (1.8-2.4) Bedside Glucose 146 mg/dl (70-90) Date/Time Source Procedure Growth Status 04/08/17 14:35 Blood Blood Culture Pending Received 04/08/17 13:00 Urine,Catheterized Urine Culture - Preliminary Probable Pseudomonas Species Resulted Last 24 Hours Test 04/08/17 13:25 04/08/17 14:35 04/09/17 06:33 04/09/17 07:51 White Blood Count 8.72 K/uL 9.45 K/uL Red Blood Count 5.23 M/uL 4.80 M/uL Hemoglobin 15.3 g/dL 14.2 g/dL Hematocrit 46.4 % 43.1 % Mean Corpuscular Volume 88.7 fL 89.8 fL Mean Corpuscular Hemoglobin 29.3 pg 29.6 pg Mean Corpuscular Hemoglobin Concent 33.0 g/dl 32.9 g/dl Platelet Count 179 K/uL 148 K/uL Mean Platelet Volume 10.0 fL 9.4 fL Neutrophils (%) (Auto) 82.3 % Lymphocytes (%) (Auto) 9.5 % Monocytes (%) (Auto) 5.7 % Eosinophils (%) (Auto) 1.7 % Basophils (%) (Auto) 0.1 % Neutrophils # (Auto) 7.17 K/uL Lymphocytes # (Auto) 0.83 K/uL Monocytes # (Auto) 0.50 K/uL Eosinophils # (Auto) 0.15 K/uL Basophils # (Auto) 0.01 K/uL RDW Standard Deviation 44.6 fL 46.0 fL RDW Coefficient of Variation 13.7 % 14.0 % Immature Granulocyte % (Auto) 0.7 % Immature Granulocyte # (Auto) 0.06 K/uL Erythrocyte Sedimentation Rate 9 mm/hr Prothrombin Time 11.2 SECONDS Prothromb Time International Ratio 1.0 Activated Partial Thromboplast Time 27.4 SECONDS Partial Thromboplastin Ratio 1.1 Sodium Level 132 mmol/L 137 mmol/L Potassium Level 3.1 mmol/L 3.5 mmol/L Chloride Level 91 mmol/L 105 mmol/L Carbon Dioxide Level 29 mmol/L 24 mmol/L Anion Gap 12.0 mmol/L 8.0 mmol/L Blood Urea Nitrogen 26 mg/dl 15 mg/dl Creatinine 1.20 mg/dl 0.83 mg/dl Est Creatinine Clear Calc Drug Dose 38.5 ml/min 49.4 ml/min Estimated GFR () 51.6 80.5 Estimated GFR (Non- 44.5 69.5 BUN/Creatinine Ratio 21.3 17.9 Random Glucose 158 mg/dl 89 mg/dl Calcium Level 8.0 mg/dl 7.1 mg/dl Phosphorus Level 2.2 mg/dl 1.6 mg/dl Magnesium Level 1.8 mg/dl 1.4 mg/dl Total Bilirubin 1.0 mg/dl Aspartate Amino Transf (AST/SGOT) 27 U/L Alanine Aminotransferase (ALT/SGPT) 15 U/L Alkaline Phosphatase 71 U/L Ammonia < 10.0 umol/L Total Creatine Kinase 48 U/L Creatine Kinase MB 3.9 ng/ml Creatine Kinase MB Ratio 8.1 Troponin I 0.039 ng/ml C-Reactive Protein 1.24 mg/dl Pro-B-Type Natriuretic Peptide 1471 pg/ml Total Protein 5.5 gm/dl Albumin 2.4 gm/dl Globulin 3.1 gm/dl Albumin/Globulin Ratio 0.8 Lipase 343 U/L Thyroid Stimulating Hormone (TSH) 0.369 uIu/ml Free Thyroxine 1.62 ng/dl Venous Blood pH 7.42 Venous Blood Partial Pressure CO2 48 mmHg Venous Blood Partial Pressure O2 29 mmHg Venous Blood HCO3 30 mmol/L Venous Blood Oxygen Saturation < 60.0 % Venous Blood Base Excess 5.0 mEq/L Bedside Glucose 75 mg/dl Test 04/09/17 11:49 Bedside Glucose 138 mg/dl Date/Time Source Procedure Growth Status 04/08/17 14:35 Blood Blood Culture Pending Received 04/08/17 13:25 Blood Blood Culture Pending Received Assessment & Plan 76 yo F with intolerance to PO presents with persistent vomiting 1. 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 Evaluation by speech therapy + video swallow study reveals that she is not aspirating, but there is some oropharyngeal dysfunction. In order to more clearly evaluate the lower esophagus we will need a barium swallow study, however, right now she cannot stand up for this. Per GI, they agree with this being a motility issue. Apprec recs. Cont IVF and full liquid diet for now per Speech recs. 2. Bacteriuria s/p recent UTI with treatment. Now growing 50 CFU probable pseudomonas (possibly a contaminant), some "pressure" noted with urinating per patient but no dysuria, urgency, fevers, chills or hematuria. Will treat with pyridium for now. 3. Hypophosphatemia/hypomag-replace IV now, she couldn't tolerate the PO replacement given yesterday. 4. HTN-controlled, cont lisinopril. 5. h/o TIA-Plavix was recently stopped and she was started on aspirin 2/2 reports of coffee ground emesis. Cont ASA at this time. 6. DMII-diet controlled, sugars are at goal. Will dc fingersticks soon 7. CKD III-at baseline. 8. Chronic pain 2/2 back and multijoint OA-on chronic oxycontin q12 hrs and chronic prednisone. She has been off the steroid for over one week at this point. Will cont off that now. DVT prophy-Heparin Full Code Dispo-uncertain at this time. She needs to be eating prior to going home. Celina Hidalgo DO [facility] Hospitalist Current Inpatient Medications: Current Inpatient Medications Medications (Trade) Dose Ordered Sig/Fab Route Start Time Stop Time Status Last Admin Dose Admin Heparin Sodium (Porcine) (Heparin Sq 5000 Unit/0.5ml) 5,000 unit Q8 SQ 04/08/17 22:00 05/08/17 21:59 04/09/17 05:46 5,000 UNIT Acetaminophen (Tylenol Tab) 650 mg Q4H PRN PO 04/08/17 16:30 05/08/17 16:29 Ondansetron HCl (Zofran Inj) 4 mg Q6H PRN IV 04/08/17 16:30 05/08/17 16:29 04/09/17 03:52 4 MG Sodium Chloride 1,000 ml @ 80 mls/hr [id number] IV 04/08/17 16:30 05/08/17 16:29 04/09/17 04:49 80 MLS/HR Morphine Sulfate (MoRPHine SULFATE INJ) 3 mg Q4H PRN IV 04/08/17 16:45 04/22/17 16:44 04/09/17 03:52 3 MG Aspirin (Ecotrin Tab) 81 mg DAILY PO 04/09/17 08:00 05/09/17 08:59 Latanoprost (Xalatan Oph Soln) 1 drops HS OPB 04/08/17 22:00 05/08/17 21:59 04/08/17 21:11 1 DROPS Levothyroxine Sodium (Synthroid Tab) 75 mcg DAILYBB PO 04/09/17 06:30 05/09/17 06:59 Lisinopril (Zestril Tab) 10 mg BID PO 04/08/17 20:00 05/08/17 20:59 04/09/17 08:24 10 MG Loratadine (Claritin Tab) 10 mg HS PO 04/08/17 21:00 05/08/17 20:59 Meclizine HCl (Antivert Tab) 25 mg TID PRN PO 04/08/17 17:15 05/08/17 17:14 Pantoprazole Sodium (Protonix Tab) 40 mg DAILY PO 04/09/17 08:00 05/09/17 08:59 04/09/17 08:27 40 MG Potassium Chloride (Klor-Con Tab) 20 meq DAILY PO 04/09/17 08:00 05/09/17 08:59 Prednisone (PredniSONE TAB) 5 mg DAILY PO 04/09/17 08:00 05/09/17 08:59 04/09/17 08:26 5 MG Senna/Docusate Sodium (Senokot S Tab) 1 tab BID PO 04/08/17 20:00 05/08/17 20:59 Simvastatin (Zocor Tab) 20 mg HS PO 04/08/17 21:00 05/08/17 20:59 Venlafaxine HCl (effeXOR EXTENDED REL CAP) 150 mg DAILY PO 04/09/17 08:00 05/09/17 08:59 04/09/17 08:19 150 MG ms-Oxmek-Fkzgpjayky Acetate (Vitamin E Cap) 400 interunit QAM PO 04/09/17 08:00 05/09/17 08:59 Ferrous Sulfate (Feosol Tab) 325 mg DAILY PO 04/09/17 08:00 05/09/17 08:59 Magnesium Oxide (Mag-Ox Tab) 400 mg BID PO 04/08/17 20:00 05/08/17 20:59 Multivitamins/ Minerals (Multivitamin W/ Minerals Tab) 1 tab QAM PO 04/09/17 08:00 05/09/17 08:59 Polyethylene (Miralax Powder Packet) 17 gm DAILY PRN PO 04/08/17 18:15 05/08/17 18:14 Potassium/ Phosphorus/Sodium (Phospha 250 Neutral 155-852-130 Mg) 1 tab QID PO 04/08/17 18:30 05/08/17 18:29 Oxycodone HCl (Oxycontin Tab) 30 mg Q12 PO 04/08/17 21:00 04/22/17 20:59 04/09/17 08:14 30 MG Famotidine 20 mg/ Dextrose 102 ml @ 200 mls/hr Q24H IV 04/08/17 22:00 05/08/17 21:59 04/08/17 21:33 200 MLS/HR Magnesium Sulfate 4 gm/Sodium Phosphate 30 mmol/ Sodium Chloride 518 ml @ 100 mls/hr Q5H11M IV 04/09/17 11:15 04/09/17 16:15 04/09/17 11:20 100 MLS/HR
[2017-04-10] MEDS: MoRPHine SULFATE 4 MG/ML 1 ML CARP\\VIAL IV PRN ×2 (01:48→16:34)
[2017-04-10] MEDS: ONDANSETRON INJ 2 MG/ML 2 ML VIAL IV PRN ×2 (01:48→16:33)
[2017-04-10] MEDS: HEPARIN SOD 5000 UNIT/0.5 ML CARP SQ SCH ×3 (06:17→21:13)
[2017-04-10] MEDS: SODIUM CHLORIDE 0.9% 1000ML 1,000 ML IV SCH ×2 (06:19→19:06)
[2017-04-10 07:32] VITALS: BP 135/78; PULSE 100; TEMP 36.7; O2SAT 98
[2017-04-10 07:37] LABS: HEMATOCRIT 40.7 % (37-47); MEAN CELL VOLUME 89.1 fL (80-100); MEAN CORPUSCULAR HGB CONC 33.7 g/dl (32-36); MEAN PLATELET VOLUME 9.4 fL (7.4-10.4); PLATELET COUNT 148 K/uL (130-400); RED BLOOD COUNT 4.57 M/uL (4.2-5.4); WHITE BLOOD COUNT 9.57 K/uL (4.8-10.8)
[2017-04-10 08:12] LABS: BUN/CREATININE RATIO 14.1 (10-20); CALCIUM 7.6 mg/dl (8.5-10.1); MAGNESIUM 2.2 mg/dl (1.8-2.4); POTASSIUM 3.1 mmol/L (3.5-5.1)
[2017-04-10] MEDS ORDERED: POTASSIUM CHLORIDE 10 MEQ TABCR PO STA (09:08)
[2017-04-10] MEDS: LISINOPRIL 10 MG TAB PO SCH ×2 (09:35→21:06)
[2017-04-10] MEDS: LEVOTHYROXINE SODIUM INJ 37.5 MCG in SYRINGE 0 ML IV SCH (09:36)
[2017-04-10] MEDS: ASPIRIN 81 MG ECTAB PO SCH (09:36)
[2017-04-10] MEDS: PHENAZOPYRIDINE HCL 100 MG TAB PO SCH ×3 (09:36→21:06)
[2017-04-10] MEDS: PANTOprazole SOD 40 MG TAB PO SCH (09:37)
[2017-04-10] MEDS: VENLAFAXINE HCL XR 150 MG CAPXR PO SCH (09:37)
[2017-04-10] MEDS: OXYCODONE HCL 10 MG TABCR (OXYCONTIN) PO SCH ×2 (09:57→21:08)
[2017-04-10] MEDS: POTASSIUM CHLR 10 MEQ / WTR 10 MEQ in PREMIXED WATER 100 ML IV SCH ×5 (10:16→16:22)
--- NOTE | 2017-04-10 12:16 | Gastroenterology Progress Note ---
Progress Note Date of Service: Apr 10, 2017 Subjective Pt evaluation today including: conversation w/ patient, conversation w/ family , physical exam, chart review, lab review, review of inpatient medication list Pt is AAOx3 today, answering questions appropriately. She is able to eat cereal , yogurt, OJ w/o n/v, abd pain. Review of Systems Constitutional: No fever, No chills ENT: No trouble swallowing, No pain on swallowing Respiratory: No cough, No shortness of breath Abdomen: No pain, No nausea, No vomiting Medications Current Inpatient Medications Medications (Trade) Dose Ordered Sig/Fab Route Start Time Stop Time Status Last Admin Dose Admin Heparin Sodium (Porcine) (Heparin Sq 5000 Unit/0.5ml) 5,000 unit Q8 SQ 04/08/17 22:00 05/08/17 21:59 04/10/17 06:17 5,000 UNIT Ondansetron HCl (Zofran Inj) 4 mg Q6H PRN IV 04/08/17 16:30 05/08/17 16:29 04/10/17 01:48 4 MG Sodium Chloride 1,000 ml @ 80 mls/hr [id number] IV 04/08/17 16:30 05/08/17 16:29 04/10/17 06:19 80 MLS/HR Morphine Sulfate (MoRPHine SULFATE INJ) 3 mg Q4H PRN IV 04/08/17 16:45 04/22/17 16:44 04/10/17 01:48 3 MG Latanoprost (Xalatan Oph Soln) 1 drops HS OPB 04/08/17 22:00 05/08/17 21:59 04/09/17 22:09 1 DROPS Lisinopril (Zestril Tab) 10 mg BID PO 04/08/17 20:00 05/08/17 20:59 04/10/17 09:35 10 MG Pantoprazole Sodium (Protonix Tab) 40 mg DAILY PO 04/09/17 08:00 05/09/17 08:59 04/10/17 09:37 40 MG Venlafaxine HCl (effeXOR EXTENDED REL CAP) 150 mg DAILY PO 04/09/17 08:00 05/09/17 08:59 04/10/17 09:37 150 MG Polyethylene (Miralax Powder Packet) 17 gm DAILY PRN PO 04/08/17 18:15 05/08/17 18:14 Oxycodone HCl (Oxycontin Tab) 30 mg Q12 PO 04/08/17 21:00 04/22/17 20:59 04/10/17 09:57 30 MG Famotidine 20 mg/ Dextrose 102 ml @ 200 mls/hr Q24H IV 04/08/17 22:00 05/08/17 21:59 04/09/17 22:12 200 MLS/HR Levothyroxine Sodium 37.5 mcg/ Syringe 1.875 ml @ 2 mls/min DAILY@09 IV 04/10/17 09:00 05/10/17 08:59 04/10/17 09:36 2 MLS/MIN Acetaminophen 650 mg/Empty Bag 65 ml @ 260 mls/hr Q6H PRN IV 04/09/17 18:45 05/09/17 18:44 Phenazopyridine HCl (Pyridium Tab) 100 mg TID PO 04/09/17 20:00 04/11/17 19:59 04/10/17 09:36 100 MG Aspirin (Ecotrin Tab) 81 mg DAILY PO 04/10/17 08:00 05/10/17 07:59 04/10/17 09:36 81 MG Potassium Chloride 10 meq/ Prmx 100 ml @ 100 mls/hr Q1H IV 04/10/17 09:30 04/10/17 13:29 04/10/17 11:35 100 MLS/HR Objective Vital Signs Date Time Temp Pulse Resp B/P (MAP) Pulse Ox O2 Delivery O2 Flow Rate FiO2 04/10/17 07:32 36.7 100 20 135/78 (97) 98 Room Air 04/10/17 00:15 Room Air 04/09/17 16:37 36.5 104 18 121/78 (92) 97 Room Air 04/09/17 16:00 Room Air Physical Exam General Appearance: WD/WN, no apparent distress Eyes: normal inspection, PERRL, EOMI Neck: supple, no JVD, trachea midline Respiratory/Chest: normal breath sounds, no respiratory distress, no accessory muscle use Cardiovascular: regular rate, rhythm, no gallop, no murmur Abdomen: non tender, soft, + abnormal bowel sounds (hypoactive) Extremities: no calf tenderness, + swelling (mild generalized edema on legs ) Neurologic/Psych: alert, normal mood/affect, oriented x 3 Skin: normal color, no jaundice, no rash Laboratory Results Last 24 Hours Test 04/09/17 16:38 04/09/17 20:32 04/10/17 07:20 04/10/17 08:07 Bedside Glucose 188 mg/dl 146 mg/dl 87 mg/dl White Blood Count 9.57 K/uL Red Blood Count 4.57 M/uL Hemoglobin 13.7 g/dL Hematocrit 40.7 % Mean Corpuscular Volume 89.1 fL Mean Corpuscular Hemoglobin 30.0 pg Mean Corpuscular Hemoglobin Concent 33.7 g/dl RDW Standard Deviation 46.0 fL RDW Coefficient of Variation 14.1 % Platelet Count 148 K/uL Mean Platelet Volume 9.4 fL Sodium Level 137 mmol/L Potassium Level 3.1 mmol/L Chloride Level 104 mmol/L Carbon Dioxide Level 23 mmol/L Anion Gap 10.0 mmol/L Blood Urea Nitrogen 14 mg/dl Creatinine 1.00 mg/dl Est Creatinine Clear Calc Drug Dose 41.0 ml/min Estimated GFR () 64.3 Estimated GFR (Non- 55.5 BUN/Creatinine Ratio 14.1 Random Glucose 110 mg/dl Calcium Level 7.6 mg/dl Phosphorus Level 3.0 mg/dl Magnesium Level 2.2 mg/dl Assessment and Plan Patient is a 76 year old female seen for dysphagia and vomiting symptoms which is suspected to be 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 Underwent EGD w dilation [address] Campbell w/o significant improvement on dysphagia. She has never a barium/video swallow eval in the past. She is going to have Speech Therapy eval today. Video swallow yesterday w/o evidence of aspiration, + mild/moderate oropharyngeal dysphagia, no signs of achalasia. She is able to tolerate her meals (soft, FL) this AM w/o regurgitations, n/v, abd pain. Plan - Diet per ST's recs though would not advance more than soft solids - I had a lengthy discussion w pt and her daughter, explained to them that since the first dilation didn't improve her symptoms much I don't think another repeat dilation should be attempted. I had the impression that pt's daughter was wondering about esophageal stent placement and I explained to her that stent placement would not be indicated nor would it be successful in this setting. Pt is also less likely to be a candidate for hiatal hernia surgery, though would defer to CT Surgery if this service is consulted. Temporary NGT for feeding can be attempted if pt is unable to keep up w PO nutrition and if she's willing. Would defer PEG as it has more risks than benefits for this pt such as aspiration, peritonitis, in addition to pt's wishes to defer invasive procedures including artificial tube feeding placement. - She would benefit from short term Speech Therapy exercises or even placement at a rehab place. Would recommend Physical Therapy to eval for possible placement. - Other outpt GI studies that can potentially be attempted if pt able to participate is esophageal motility and esophagram to r/o lower esophageal issues. Would defer medication uses such as neostigmine or CCB (Diltiazem) at this time given her advanced age and risk of potential complications w these meds including cardiac dysryhtmias / hypotension putting her at risk for falls. I have seen, examined and agree with the plan as outlined by NILA Simmons as above. -exam reveals soft abd -Would exhaust noninterventional methods prior to any type of interventional testing and/or procedures. I don't think that repair the hernia will improve her oral pharyngeal dysfunction. -Clearly she's had declining health status with not being ambulatory in the last month, that concerns that there may be a possibility of a neurologic and/ or other chronic issue that has not been was elucidated and/or worsened recently.
[2017-04-10 16:12] VITALS: BP 117/78; PULSE 167; TEMP 36.6
--- NOTE | 2017-04-10 19:13 | Progress Note ---
Medicine Progress Note Date & Time of Visit: Apr 10, 2017 at 12:26. (Meena Rubio PA-C) Subjective Patient seen with daughter at bedside. States she had mild nausea and regurgitation overnight. Took in liquids this morning, no further regurgitation or N/V. Denies odynophagia or abdominal pain. Had 3 formed BM yesterday, none today. Reports pressure when urinating but no dysuria. Denies CP or SOB. Less mobile than baseline x 1 month per daughter. Requiring help with transfers. (Meena Rubio PA-C) Objective Last 8 Hrs Date Time Temp Pulse Resp B/P (MAP) Pulse Ox O2 Delivery O2 Flow Rate FiO2 04/10/17 07:32 36.7 100 20 135/78 (97) 98 Room Air Physical Exam: General-alert obese 76 year old female sitting in bedside chair, not in distress Eyes-sclerae non icteric ENT-hearing intact Neck-trachea midline Lungs-CTA bilaterally, no crackles, wheezing, rhonchi, no respiratory distress Heart-RRR, no murmur Abdomen-obese, soft, nontender, normal BS, exam limited while pt sitting in chair Extremities- chronic trace LE swelling L>R Neuro-alert and oriented, mildly anxious, no gross deficit Laboratory Results: Last 24 Hours Test 04/09/17 16:38 04/09/17 20:32 04/10/17 07:20 04/10/17 08:07 Bedside Glucose 188 mg/dl 146 mg/dl 87 mg/dl White Blood Count 9.57 K/uL Red Blood Count 4.57 M/uL Hemoglobin 13.7 g/dL Hematocrit 40.7 % Mean Corpuscular Volume 89.1 fL Mean Corpuscular Hemoglobin 30.0 pg Mean Corpuscular Hemoglobin Concent 33.7 g/dl RDW Standard Deviation 46.0 fL RDW Coefficient of Variation 14.1 % Platelet Count 148 K/uL Mean Platelet Volume 9.4 fL Sodium Level 137 mmol/L Potassium Level 3.1 mmol/L Chloride Level 104 mmol/L Carbon Dioxide Level 23 mmol/L Anion Gap 10.0 mmol/L Blood Urea Nitrogen 14 mg/dl Creatinine 1.00 mg/dl Est Creatinine Clear Calc Drug Dose 41.0 ml/min Estimated GFR () 64.3 Estimated GFR (Non- 55.5 BUN/Creatinine Ratio 14.1 Random Glucose 110 mg/dl Calcium Level 7.6 mg/dl Phosphorus Level 3.0 mg/dl Magnesium Level 2.2 mg/dl Test 04/10/17 12:11 Bedside Glucose 123 mg/dl (Meena Rubio PA-C) Assessment & Plan DYSPHAGIA/ VOMITING Due to esophageal dysmotility Evaluated by speech therapy Video swallow shows oropharyngeal dysmotility Tolerating Full liquid diet IVF's GI consulted, appreciate input, consider esophageal motility and esophagram as outpatient BACTERURIA Recently treated for UTI Urine culture grew pseudomonas Afebrile, no leukocytosis, reports of pressure when voiding but no dysuria Continue Pyridium ELECTROLYTE ABNORMALITIES Replacement given HTN Continue lisinopril HX TIA Continue aspirin DM TYPE 2 Diet controlled CKD STAGE III Monitor renal function CHRONIC PAIN H/o chronic back pain and generalized OA Continue chronic oxycontin Currently off chronic prednisone DVT PROPHYLAXIS Heparin SQ FULL CODE DISPOSITION Pending PT recommends rehab Current Inpatient Medications: Current Inpatient Medications Medications (Trade) Dose Ordered Sig/Fab Route Start Time Stop Time Status Last Admin Dose Admin Heparin Sodium (Porcine) (Heparin Sq 5000 Unit/0.5ml) 5,000 unit Q8 SQ 04/08/17 22:00 05/08/17 21:59 04/10/17 06:17 5,000 UNIT Ondansetron HCl (Zofran Inj) 4 mg Q6H PRN IV 04/08/17 16:30 05/08/17 16:29 04/10/17 01:48 4 MG Sodium Chloride 1,000 ml @ 80 mls/hr [id number] IV 04/08/17 16:30 05/08/17 16:29 04/10/17 06:19 80 MLS/HR Morphine Sulfate (MoRPHine SULFATE INJ) 3 mg Q4H PRN IV 04/08/17 16:45 04/22/17 16:44 04/10/17 01:48 3 MG Latanoprost (Xalatan Oph Soln) 1 drops HS OPB 04/08/17 22:00 05/08/17 21:59 04/09/17 22:09 1 DROPS Lisinopril (Zestril Tab) 10 mg BID PO 04/08/17 20:00 05/08/17 20:59 04/10/17 09:35 10 MG Pantoprazole Sodium (Protonix Tab) 40 mg DAILY PO 04/09/17 08:00 05/09/17 08:59 04/10/17 09:37 40 MG Venlafaxine HCl (effeXOR EXTENDED REL CAP) 150 mg DAILY PO 04/09/17 08:00 05/09/17 08:59 04/10/17 09:37 150 MG Polyethylene (Miralax Powder Packet) 17 gm DAILY PRN PO 04/08/17 18:15 05/08/17 18:14 Oxycodone HCl (Oxycontin Tab) 30 mg Q12 PO 04/08/17 21:00 04/22/17 20:59 04/10/17 09:57 30 MG Famotidine 20 mg/ Dextrose 102 ml @ 200 mls/hr Q24H IV 04/08/17 22:00 05/08/17 21:59 04/09/17 22:12 200 MLS/HR Levothyroxine Sodium 37.5 mcg/ Syringe 1.875 ml @ 2 mls/min DAILY@09 IV 04/10/17 09:00 05/10/17 08:59 04/10/17 09:36 2 MLS/MIN Acetaminophen 650 mg/Empty Bag 65 ml @ 260 mls/hr Q6H PRN IV 04/09/17 18:45 05/09/17 18:44 Phenazopyridine HCl (Pyridium Tab) 100 mg TID PO 04/09/17 20:00 04/11/17 19:59 04/10/17 09:36 100 MG Aspirin (Ecotrin Tab) 81 mg DAILY PO 04/10/17 08:00 05/10/17 07:59 04/10/17 09:36 81 MG Potassium Chloride 10 meq/ Prmx 100 ml @ 100 mls/hr Q1H IV 04/10/17 09:30 04/10/17 13:29 04/10/17 11:35 100 MLS/HR (Meena Rubio PA-C) I have seen and examined the patient and agree with the assessment and plan as above. She doesn't have a UTI (50K CFU on urine culture and she is essentially asymptomatic with significant clinical improvement today. DO Rocky (Celina Hidalgo DO)
[2017-04-10] MEDS: LATANOPROST 0.005% OP SOLN 2.5 ML BTL OPB SCH (21:06)
[2017-04-10] MEDS: FAMOTIDINE IV INJ 20 MG in DEXTROSE 5% 100ML 100 ML IV SCH (21:09)
[2017-04-11 00:17] VITALS: BP 122/80; PULSE 93; TEMP 36.7; O2SAT 99
[2017-04-11] MEDS: HEPARIN SOD 5000 UNIT/0.5 ML CARP SQ SCH ×3 (06:19→20:30)
[2017-04-11 07:05] VITALS: BP 116/90; PULSE 102; TEMP 36.6; O2SAT 97
[2017-04-11] MEDS: PANTOprazole SOD 40 MG TAB PO SCH (08:14)
[2017-04-11] MEDS: SODIUM CHLORIDE 0.9% 1000ML 1,000 ML IV SCH ×2 (08:14→19:37)
[2017-04-11] MEDS: ASPIRIN 81 MG ECTAB PO SCH (08:14)
[2017-04-11] MEDS: VENLAFAXINE HCL XR 150 MG CAPXR PO SCH (08:14)
[2017-04-11] MEDS: LISINOPRIL 10 MG TAB PO SCH ×2 (08:15→20:24)
[2017-04-11] MEDS: ONDANSETRON INJ 2 MG/ML 2 ML VIAL IV PRN (08:19)
[2017-04-11 08:29] LABS: HEMATOCRIT 39.3 % (37-47); MEAN CELL VOLUME 89.5 fL (80-100); MEAN CORPUSCULAR HEMOGLOBIN 30.3 pg (25-34); MEAN CORPUSCULAR HGB CONC 33.8 g/dl (32-36); MEAN PLATELET VOLUME 10.1 fL (7.4-10.4); PLATELET COUNT 138 K/uL (130-400); RED BLOOD COUNT 4.39 M/uL (4.2-5.4); WHITE BLOOD COUNT 9.12 K/uL (4.8-10.8)
[2017-04-11] MEDS: PHENAZOPYRIDINE HCL 100 MG TAB PO SCH ×2 (08:53→14:11)
[2017-04-11] MEDS: LEVOTHYROXINE SODIUM INJ 37.5 MCG in SYRINGE 0 ML IV SCH (08:53)
[2017-04-11] MEDS: OXYCODONE HCL 10 MG TABCR (OXYCONTIN) PO SCH ×2 (09:17→20:24)
[2017-04-11 09:18] LABS: BUN/CREATININE RATIO 12.6 (10-20); CALCIUM 8.2 mg/dl (8.5-10.1); CREATININE 0.94 mg/dl (0.60-1.20); POTASSIUM 4.2 mmol/L (3.5-5.1)
[2017-04-11] MEDS: CIPROFLOXACIN / D5W 400 MG in PREMIXED IN D5W 200 ML IV SCH ×2 (11:35→23:20)
[2017-04-11] MEDS: BOOST GLUCOSE CONTROL PO SCH (14:00)
[2017-04-11 15:26] VITALS: BP 89/56; TEMP 37; O2SAT 97
[2017-04-11] MEDS: LATANOPROST 0.005% OP SOLN 2.5 ML BTL OPB SCH (20:25)
[2017-04-11] MEDS: FAMOTIDINE IV INJ 20 MG in DEXTROSE 5% 100ML 100 ML IV SCH (20:27)
[2017-04-11 20:52] VITALS: BP 103/68; PULSE 82; TEMP 36.4; O2SAT 91
--- NOTE | 2017-04-11 21:02 | Progress Note ---
Medicine Progress Note Date & Time of Visit: Apr 11, 2017 at 10:16. Subjective tolerating full liquid diet with only 1-2 episodes of regurgitation last night but kept down most of her food denies pain reports some questionable bladder pressure but denies flank pain, fevers, chills , or dysuria chronic urinary incontinence for months Objective Last 8 Hrs Date Time Temp Pulse Resp B/P (MAP) Pulse Ox O2 Delivery O2 Flow Rate FiO2 04/11/17 08:06 Room Air 04/11/17 07:05 36.6 102 18 116/90 (99) 97 Room Air Physical Exam: GEN: WNWD, in no acute distress, alert and oriented to self location and to date. HEENT: NC/AT, normal sclerae, MMM CARDIO: reg rate, S1/2 heard without m/g/r LUNGS: CTA bilaterally, no crackles, rales or wheezes, good diaphragmatic excursion ABD: soft, non-tender, non-distended, no rebound or guarding, +BS EXTREMITY: RP and DP palpable 2+ bilat, no LE swelling or edema, extremities are warm and well-perfused NEURO: CN 2-12 grossly intact MUSC: 5/5 strength throughout, no focal deficits SKIN: warm and dry Laboratory Results: 04/11/17 07:53 04/11/17 07:53 Test 04/08/17 13:00 04/08/17 13:21 04/08/17 13:25 04/08/17 14:35 Urine Color YELLOW Urine Appearance CLEAR (CLEAR) Urine pH 7.0 (4.5-7.5) Urine Specific [place] 1.014 (1.000-1.030) Urine Protein NEG (NEG) Urine Glucose (UA) 2+ (NEG) Urine Ketones 1+ (NEG) Urine Occult Blood 1+ (NEG) Urine Nitrite NEG (NEG) Urine Bilirubin NEG (NEG) Urine Urobilinogen NEG (NEG) Urine Leukocyte Esterase LARGE (NEG) Urine WBC (Auto) >30 /hpf (0-5) Urine RBC (Auto) 0-4 /hpf (0-4) Urine Hyaline Casts (Auto) 1-5 /lpf (0-5) Urine Epithelial Cells (Auto) >30 /lpf (0-5) Urine Bacteria (Auto) NEG (NEG) Urine Renal Epithelial Cells 5-10 /lpf (0-5) Urine Opiates Screen NEG (NEG) Urine Methadone, Qualitative NEG (NEG) Urine Barbiturates NEG (NEG) Urine Phencyclidine (PCP) Level NEG (NEG) Ur Amphetamine/Methamphetamine NEG (NEG) MDMA (Ecstasy) Screen NEG (NEG) Urine Benzodiazepines Screen NEG (NEG) Urine Cocaine Metabolite NEG (NEG) Urine Marijuana (THC) NEG (NEG) Bedside Lactic Acid Venous 1.41 mmol/L (0.90-1.70) Immature Granulocyte % (Auto) 0.7 % White Blood Count 8.72 K/uL (4.8-10.8) Red Blood Count 5.23 M/uL (4.2-5.4) Hemoglobin 15.3 g/dL (12.0-16.0) Hematocrit 46.4 % (37-47) Mean Corpuscular Volume 88.7 fL (80-100) Mean Corpuscular Hemoglobin 29.3 pg (25-34) Mean Corpuscular Hemoglobin Concent 33.0 g/dl (32-36) Platelet Count 179 K/uL (130-400) Mean Platelet Volume 10.0 fL (7.4-10.4) Neutrophils (%) (Auto) 82.3 % Lymphocytes (%) (Auto) 9.5 % Monocytes (%) (Auto) 5.7 % Eosinophils (%) (Auto) 1.7 % Basophils (%) (Auto) 0.1 % Neutrophils # (Auto) 7.17 K/uL (1.4-6.5) Lymphocytes # (Auto) 0.83 K/uL (1.2-3.4) Monocytes # (Auto) 0.50 K/uL (0.11-0.59) Eosinophils # (Auto) 0.15 K/uL (0-0.5) Basophils # (Auto) 0.01 K/uL (0-0.2) Immature Granulocyte # (Auto) 0.06 K/uL (0.00-0.02) Erythrocyte Sedimentation Rate 9 mm/hr (0-21) Prothrombin Time 11.2 SECONDS (9.0-12.0) Prothromb Time International Ratio 1.0 (0.9-1.1) Activated Partial Thromboplast Time 27.4 SECONDS (21.0-31.0) Partial Thromboplastin Ratio 1.1 Total Bilirubin 1.0 mg/dl (0.2-1) Aspartate Amino Transf (AST/SGOT) 27 U/L (15-37) Alanine Aminotransferase (ALT/SGPT) 15 U/L (12-78) Alkaline Phosphatase 71 U/L (45-117) Ammonia < 10.0 umol/L (11-32) Total Creatine Kinase 48 U/L (26-192) Creatine Kinase MB 3.9 ng/ml (0.5-3.6) Creatine Kinase MB Ratio 8.1 (0-3.0) Troponin I 0.039 ng/ml (0-0.045) C-Reactive Protein 1.24 mg/dl (0-0.29) Pro-B-Type Natriuretic Peptide 1471 pg/ml (0-900) Total Protein 5.5 gm/dl (6.4-8.2) Albumin 2.4 gm/dl (3.4-5.0) Globulin 3.1 gm/dl (2.5-4.0) Albumin/Globulin Ratio 0.8 (0.9-2) Lipase 343 U/L (73-393) Thyroid Stimulating Hormone (TSH) 0.369 uIu/ml (0.300-4.500) Free Thyroxine 1.62 ng/dl (0.80-1.60) Venous Blood pH 7.42 (7.36-7.41) Venous Blood Partial Pressure CO2 48 mmHg (38.0-50.0) Venous Blood Partial Pressure O2 29 mmHg Venous Blood HCO3 30 mmol/L Venous Blood Oxygen Saturation < 60.0 % Venous Blood Base Excess 5.0 mEq/L Test 04/10/17 07:20 04/11/17 07:53 04/11/17 16:44 Phosphorus Level 3.0 mg/dl (2.5-4.9) Red Blood Count 4.39 M/uL (4.2-5.4) Mean Corpuscular Volume 89.5 fL (80-100) Mean Corpuscular Hemoglobin 30.3 pg (25-34) Mean Corpuscular Hemoglobin Concent 33.8 g/dl (32-36) RDW Standard Deviation 47.1 fL (36.4-46.3) RDW Coefficient of Variation 14.4 % (11.5-14.5) Mean Platelet Volume 10.1 fL (7.4-10.4) Anion Gap 7.0 mmol/L (3-11) Est Creatinine Clear Calc Drug Dose 43.6 ml/min Estimated GFR () 69.3 Estimated GFR (Non- 59.8 BUN/Creatinine Ratio 12.6 (10-20) Calcium Level 8.2 mg/dl (8.5-10.1) Magnesium Level 2.0 mg/dl (1.8-2.4) Bedside Glucose 84 mg/dl (70-90) Date/Time Source Procedure Growth Status 04/08/17 14:35 Blood Blood Culture - Preliminary NO GROWTH TO DATE. Resulted 04/08/17 13:00 Urine,Catheterized Urine Culture - Final Pseudomonas Aeruginosa Complete Last 24 Hours Test 04/10/17 12:11 04/10/17 16:40 04/10/17 20:30 04/11/17 07:53 Bedside Glucose 123 mg/dl 116 mg/dl 99 mg/dl White Blood Count 9.12 K/uL Red Blood Count 4.39 M/uL Hemoglobin 13.3 g/dL Hematocrit 39.3 % Mean Corpuscular Volume 89.5 fL Mean Corpuscular Hemoglobin 30.3 pg Mean Corpuscular Hemoglobin Concent 33.8 g/dl RDW Standard Deviation 47.1 fL RDW Coefficient of Variation 14.4 % Platelet Count 138 K/uL Mean Platelet Volume 10.1 fL Sodium Level 138 mmol/L Potassium Level 4.2 mmol/L Chloride Level 107 mmol/L Carbon Dioxide Level 24 mmol/L Anion Gap 7.0 mmol/L Blood Urea Nitrogen 12 mg/dl Creatinine 0.94 mg/dl Est Creatinine Clear Calc Drug Dose 43.6 ml/min Estimated GFR () 69.3 Estimated GFR (Non- 59.8 BUN/Creatinine Ratio 12.6 Random Glucose 73 mg/dl Calcium Level 8.2 mg/dl Magnesium Level 2.0 mg/dl Test 04/11/17 08:34 04/11/17 09:01 Bedside Glucose 69 mg/dl 83 mg/dl Assessment & Plan 76 yo F with worsening dysphagia and intolerance to PO 1. Dysphagia/vomiting-tortuous esophagus and possible superimposed dysmotilty in setting of hiatal hernia. She has been tolerating full liquid diet. Ordered a calorie count so I can get an appreciation of if she is actually meeting her calories. After discussion with PROJECT SCIENTIST, she prefers to avoid a pureed diet as it is not moist enough and opts more for soft mechanical if we advance her from full liquids. GI following. Apprec recs. For now we are continuing to try the PO method and may consider other more invasive options after a few days (NGT trial, etc) 2. Bacteriuria-gave some pyridium for "pressure" in setting of chronic incontinence in poor historian. Recent treatment of UTI and repeat UCx reveals 50K CFU so not treated initially. However patient is requesting abx, and with questionable symptoms, this sounds reasonable. 3. HTN-cont lisinopril BID 4. h/o TIA-cont ASA 5. DMII-diet controlled. She has been hypoglycemic on occasion with poor PO intake. 6. CKD Stg III-at baseline. 7. Chronic back pain and generalized OA-cont oxycontin BID; off chronic prednisone. DVT PROPHYLAXIS Heparin SQ FULL CODE DISPOSITION PT recommends rehab; OK to go when she is medically stable and tolerating enough PO to support her nutritional needs. Celina Hidalgo DO [facility] Hospitalist Current Inpatient Medications: Current Inpatient Medications Medications (Trade) Dose Ordered Sig/Fab Route Start Time Stop Time Status Last Admin Dose Admin Heparin Sodium (Porcine) (Heparin Sq 5000 Unit/0.5ml) 5,000 unit Q8 SQ 04/08/17 22:00 05/08/17 21:59 04/11/17 06:19 5,000 UNIT Ondansetron HCl (Zofran Inj) 4 mg Q6H PRN IV 04/08/17 16:30 05/08/17 16:29 04/11/17 08:19 4 MG Sodium Chloride 1,000 ml @ 80 mls/hr [id number] IV 04/08/17 16:30 05/08/17 16:29 04/11/17 08:14 80 MLS/HR Morphine Sulfate (MoRPHine SULFATE INJ) 3 mg Q4H PRN IV 04/08/17 16:45 04/22/17 16:44 04/10/17 16:34 3 MG Latanoprost (Xalatan Oph Soln) 1 drops HS OPB 04/08/17 22:00 05/08/17 21:59 04/10/17 21:06 1 DROPS Lisinopril (Zestril Tab) 10 mg BID PO 04/08/17 20:00 05/08/17 20:59 04/11/17 08:15 10 MG Pantoprazole Sodium (Protonix Tab) 40 mg DAILY PO 04/09/17 08:00 05/09/17 08:59 04/11/17 08:14 40 MG Venlafaxine HCl (effeXOR EXTENDED REL CAP) 150 mg DAILY PO 04/09/17 08:00 05/09/17 08:59 04/11/17 08:14 150 MG Polyethylene (Miralax Powder Packet) 17 gm DAILY PRN PO 04/08/17 18:15 05/08/17 18:14 Oxycodone HCl (Oxycontin Tab) 30 mg Q12 PO 04/08/17 21:00 04/22/17 20:59 04/11/17 09:17 30 MG Famotidine 20 mg/ Dextrose 102 ml @ 200 mls/hr Q24H IV 04/08/17 22:00 05/08/17 21:59 04/10/17 21:09 200 MLS/HR Levothyroxine Sodium 37.5 mcg/ Syringe 1.875 ml @ 2 mls/min DAILY@09 IV 04/10/17 09:00 05/10/17 08:59 04/11/17 08:53 2 MLS/MIN Acetaminophen 650 mg/Empty Bag 65 ml @ 260 mls/hr Q6H PRN IV 04/09/17 18:45 05/09/17 18:44 Phenazopyridine HCl (Pyridium Tab) 100 mg TID PO 04/09/17 20:00 04/11/17 19:59 04/11/17 08:53 100 MG Aspirin (Ecotrin Tab) 81 mg DAILY PO 04/10/17 08:00 05/10/17 07:59 04/11/17 08:14 81 MG
[2017-04-12 00:02] VITALS: BP 115/75; PULSE 94; TEMP 36.7; O2SAT 99
[2017-04-12] MEDS: ONDANSETRON INJ 2 MG/ML 2 ML VIAL IV PRN (04:59)
[2017-04-12] MEDS: HEPARIN SOD 5000 UNIT/0.5 ML CARP SQ SCH ×3 (06:03→22:25)
[2017-04-12 07:00] VITALS: BP 121/86; PULSE 92; TEMP 36.6; O2SAT 98
[2017-04-12] MEDS: BOOST GLUCOSE CONTROL PO SCH ×2 (07:56→13:48)
[2017-04-12] MEDS: SODIUM CHLORIDE 0.9% 1000ML 1,000 ML IV SCH ×2 (07:57→22:25)
[2017-04-12] MEDS: PANTOprazole SOD 40 MG TAB PO SCH (07:58)
[2017-04-12] MEDS: ASPIRIN 81 MG ECTAB PO SCH (07:58)
[2017-04-12] MEDS: OXYCODONE HCL 10 MG TABCR (OXYCONTIN) PO SCH ×2 (07:58→20:44)
[2017-04-12] MEDS: VENLAFAXINE HCL XR 150 MG CAPXR PO SCH (07:59)
[2017-04-12 08:33] LABS: BLOOD UREA NITROGEN 11 mg/dl (7-18); BUN/CREATININE RATIO 11.5 (10-20); CALCIUM 7.8 mg/dl (8.5-10.1); CARBON DIOXIDE 24 mmol/L (21-32); CHLORIDE 105 mmol/L (98-107); CREATININE 0.93 mg/dl (0.60-1.20); GLUCOSE 70 mg/dl (70-99); SODIUM 135 mmol/L (136-145)
[2017-04-12 09:13] LABS: MAGNESIUM 1.7 mg/dl (1.8-2.4); POTASSIUM 4.2 mmol/L (3.5-5.1)
[2017-04-12] MEDS: LEVOTHYROXINE SODIUM INJ 37.5 MCG in SYRINGE 0 ML IV SCH (09:28)
[2017-04-12] MEDS: LISINOPRIL 10 MG TAB PO SCH ×2 (09:55→20:42)
[2017-04-12] MEDS: MAGNESIUM SULFATE 1GM / D5W 1 GM in PREMIXED IN D5W 100 ML IV SCH ×2 (10:27→13:46)
[2017-04-12] MEDS: CIPROFLOXACIN / D5W 400 MG in PREMIXED IN D5W 200 ML IV SCH (11:30)
[2017-04-12] MEDS ORDERED: FUROSEMIDE 20 MG TAB PO ONE (14:03)
[2017-04-12] MEDS ORDERED: LACTULOSE SYRUP 20 GM/30 ML UDC PO PRN (14:15)
[2017-04-12 15:32] VITALS: BP 102/62; PULSE 101; TEMP 36.5; O2SAT 100
[2017-04-12] MEDS: BUTT PASTE 171 APPLN/57 GM JAR EXT PRN (15:48)
[2017-04-12] MEDS: POLYETHYLENE (MIRALAX) 17 GM PACK PO PRN (15:49)
[2017-04-12] MEDS: BOOST VANILLA PUDDING CUP PO SCH (17:00)
[2017-04-12] MEDS: NYSTATIN SUSP 500,000 U/5 ML UDC PO SCH ×2 (18:50→20:41)
[2017-04-12 19:06] VITALS: BP 103/73; PULSE 92; TEMP 36.6; O2SAT 97
[2017-04-12 20:00] VITALS: BP 109/75; PULSE 83
[2017-04-12] MEDS: LATANOPROST 0.005% OP SOLN 2.5 ML BTL OPB SCH (20:44)
[2017-04-12] MEDS: FAMOTIDINE IV INJ 20 MG in DEXTROSE 5% 100ML 100 ML IV SCH (22:23)
--- NOTE | 2017-04-12 23:08 | Progress Note ---
Medicine Progress Note Date & Time of Visit: Apr 12, 2017 at 13:58. Subjective tolerating full liquids and ok to advance to soft mechanical denies pain reports thrush in mouth reports legs are swollen. Objective Last 8 Hrs Date Time Temp Pulse Resp B/P (MAP) Pulse Ox O2 Delivery O2 Flow Rate FiO2 04/12/17 08:00 Room Air 04/12/17 07:00 36.6 92 18 121/86 (98) 98 Room Air Physical Exam: GEN: WNWD, in no acute distress, alert and oriented to self location and to date. HEENT: NC/AT, normal sclerae, MMM, tongue is a beefy red color and appears irritated. CARDIO: reg rate, S1/2 heard without m/g/r LUNGS: CTA bilaterally, no crackles, rales or wheezes, good diaphragmatic excursion ABD: soft, non-tender, non-distended, no rebound or guarding, +BS EXTREMITY: RP and DP palpable 2+ bilat, 3+ LE swelling or edema blaterally, extremities are warm and well-perfused NEURO: CN 2-12 grossly intact MUSC: 5/5 strength throughout, no focal deficits SKIN: warm and dry, erythematous warm rash under breasts and in axillae bilaterally-zinc oxide/menthol cream is in place. Laboratory Results: 04/11/17 07:53 04/12/17 07:31 04/12/17 08:40 Test 04/08/17 13:00 04/08/17 13:21 04/08/17 13:25 04/08/17 14:35 Urine Color YELLOW Urine Appearance CLEAR (CLEAR) Urine pH 7.0 (4.5-7.5) Urine Specific [place] 1.014 (1.000-1.030) Urine Protein NEG (NEG) Urine Glucose (UA) 2+ (NEG) Urine Ketones 1+ (NEG) Urine Occult Blood 1+ (NEG) Urine Nitrite NEG (NEG) Urine Bilirubin NEG (NEG) Urine Urobilinogen NEG (NEG) Urine Leukocyte Esterase LARGE (NEG) Urine WBC (Auto) >30 /hpf (0-5) Urine RBC (Auto) 0-4 /hpf (0-4) Urine Hyaline Casts (Auto) 1-5 /lpf (0-5) Urine Epithelial Cells (Auto) >30 /lpf (0-5) Urine Bacteria (Auto) NEG (NEG) Urine Renal Epithelial Cells 5-10 /lpf (0-5) Urine Opiates Screen NEG (NEG) Urine Methadone, Qualitative NEG (NEG) Urine Barbiturates NEG (NEG) Urine Phencyclidine (PCP) Level NEG (NEG) Ur Amphetamine/Methamphetamine NEG (NEG) MDMA (Ecstasy) Screen NEG (NEG) Urine Benzodiazepines Screen NEG (NEG) Urine Cocaine Metabolite NEG (NEG) Urine Marijuana (THC) NEG (NEG) Bedside Lactic Acid Venous 1.41 mmol/L (0.90-1.70) Immature Granulocyte % (Auto) 0.7 % White Blood Count 8.72 K/uL (4.8-10.8) Red Blood Count 5.23 M/uL (4.2-5.4) Hemoglobin 15.3 g/dL (12.0-16.0) Hematocrit 46.4 % (37-47) Mean Corpuscular Volume 88.7 fL (80-100) Mean Corpuscular Hemoglobin 29.3 pg (25-34) Mean Corpuscular Hemoglobin Concent 33.0 g/dl (32-36) Platelet Count 179 K/uL (130-400) Mean Platelet Volume 10.0 fL (7.4-10.4) Neutrophils (%) (Auto) 82.3 % Lymphocytes (%) (Auto) 9.5 % Monocytes (%) (Auto) 5.7 % Eosinophils (%) (Auto) 1.7 % Basophils (%) (Auto) 0.1 % Neutrophils # (Auto) 7.17 K/uL (1.4-6.5) Lymphocytes # (Auto) 0.83 K/uL (1.2-3.4) Monocytes # (Auto) 0.50 K/uL (0.11-0.59) Eosinophils # (Auto) 0.15 K/uL (0-0.5) Basophils # (Auto) 0.01 K/uL (0-0.2) Immature Granulocyte # (Auto) 0.06 K/uL (0.00-0.02) Erythrocyte Sedimentation Rate 9 mm/hr (0-21) Prothrombin Time 11.2 SECONDS (9.0-12.0) Prothromb Time International Ratio 1.0 (0.9-1.1) Activated Partial Thromboplast Time 27.4 SECONDS (21.0-31.0) Partial Thromboplastin Ratio 1.1 Total Bilirubin 1.0 mg/dl (0.2-1) Aspartate Amino Transf (AST/SGOT) 27 U/L (15-37) Alanine Aminotransferase (ALT/SGPT) 15 U/L (12-78) Alkaline Phosphatase 71 U/L (45-117) Ammonia < 10.0 umol/L (11-32) Total Creatine Kinase 48 U/L (26-192) Creatine Kinase MB 3.9 ng/ml (0.5-3.6) Creatine Kinase MB Ratio 8.1 (0-3.0) Troponin I 0.039 ng/ml (0-0.045) C-Reactive Protein 1.24 mg/dl (0-0.29) Pro-B-Type Natriuretic Peptide 1471 pg/ml (0-900) Total Protein 5.5 gm/dl (6.4-8.2) Albumin 2.4 gm/dl (3.4-5.0) Globulin 3.1 gm/dl (2.5-4.0) Albumin/Globulin Ratio 0.8 (0.9-2) Lipase 343 U/L (73-393) Thyroid Stimulating Hormone (TSH) 0.369 uIu/ml (0.300-4.500) Free Thyroxine 1.62 ng/dl (0.80-1.60) Venous Blood pH 7.42 (7.36-7.41) Venous Blood Partial Pressure CO2 48 mmHg (38.0-50.0) Venous Blood Partial Pressure O2 29 mmHg Venous Blood HCO3 30 mmol/L Venous Blood Oxygen Saturation < 60.0 % Venous Blood Base Excess 5.0 mEq/L Test 04/10/17 07:20 04/11/17 07:53 04/11/17 20:36 04/12/17 07:31 Phosphorus Level 3.0 mg/dl (2.5-4.9) Red Blood Count 4.39 M/uL (4.2-5.4) Mean Corpuscular Volume 89.5 fL (80-100) Mean Corpuscular Hemoglobin 30.3 pg (25-34) Mean Corpuscular Hemoglobin Concent 33.8 g/dl (32-36) RDW Standard Deviation 47.1 fL (36.4-46.3) RDW Coefficient of Variation 14.4 % (11.5-14.5) Mean Platelet Volume 10.1 fL (7.4-10.4) Bedside Glucose 96 mg/dl (70-90) Anion Gap 6.0 mmol/L (3-11) Est Creatinine Clear Calc Drug Dose 44.1 ml/min Estimated GFR () 70.2 Estimated GFR (Non- 60.5 BUN/Creatinine Ratio 11.5 (10-20) Calcium Level 7.8 mg/dl (8.5-10.1) Test 04/12/17 08:40 Magnesium Level 1.7 mg/dl (1.8-2.4) Date/Time Source Procedure Growth Status 04/08/17 14:35 Blood Blood Culture - Preliminary NO GROWTH TO DATE. Resulted 04/08/17 13:00 Urine,Catheterized Urine Culture - Final Pseudomonas Aeruginosa Complete Last 24 Hours Test 04/11/17 16:40 04/11/17 16:44 04/11/17 20:36 04/12/17 07:31 Bedside Glucose 85 mg/dl 84 mg/dl 96 mg/dl Sodium Level 135 mmol/L Potassium Level mmol/L Chloride Level 105 mmol/L Carbon Dioxide Level 24 mmol/L Anion Gap 6.0 mmol/L Blood Urea Nitrogen 11 mg/dl Creatinine 0.93 mg/dl Est Creatinine Clear Calc Drug Dose 44.1 ml/min Estimated GFR () 70.2 Estimated GFR (Non- 60.5 BUN/Creatinine Ratio 11.5 Random Glucose 70 mg/dl Calcium Level 7.8 mg/dl Magnesium Level mg/dl Test 04/12/17 08:40 Potassium Level 4.2 mmol/L Magnesium Level 1.7 mg/dl Assessment & Plan 76 yo F with worsening dysphagia and intolerance to PO 1. Dysphagia/vomiting-tortuous esophagus and possible superimposed dysmotilty in setting of hiatal hernia. She has been tolerating full liquid diet. She is OK with advancing to mechanical soft diet (slippery) this evening. Apprec c4 planner ensuring that she is meeting her goals. After discussion with UNDERTAKER ASSISTANT, she prefers to avoid a pureed diet as it is not moist enough. GI following. Apprec recs. For now we are continuing to try the PO method and may consider other more invasive options after a few days (NGT trial, etc) 2. Bacteriuria-gave some pyridium for "pressure" in setting of chronic incontinence in poor historian. Recent treatment of UTI and repeat UCx reveals 50K CFU so not treated initially. However patient is requesting abx, and with questionable symptoms, this sounds reasonable-cont Cipro 3. HTN-cont lisinopril BID 4. h/o TIA-cont ASA 5. DMII-diet controlled. She has been hypoglycemic on occasion with poor PO intake. 6. CKD Stg III-at baseline. 7. Chronic back pain and generalized OA-cont oxycontin BID; off chronic prednisone. 8. LE swelling-edema present, poss venous stasis. TEDs ordered and home Lasix restarted 9. Thrush-started Nystatin QID x 10 days 10. Rash-under breasts and in axillae bilaterally-daughter applying cream with menthol in it but I'm concerned about inflammation with this. I gave a zinc oxude cream and consulted wound care. I asked the patient's daughter to bring a supportive bra which will keep her breasts off of the area in question. She will bring tomorrow. DVT PROPHYLAXIS Heparin SQ FULL CODE DISPOSITION PT recommends rehab; OK to go when she is medically stable and tolerating enough PO to support her nutritional needs. [facility] Consultants: GI, UNDERTAKER ASSISTANT, PT/OT Current Inpatient Medications: Current Inpatient Medications Medications (Trade) Dose Ordered Sig/Fab Route Start Time Stop Time Status Last Admin Dose Admin Heparin Sodium (Porcine) (Heparin Sq 5000 Unit/0.5ml) 5,000 unit Q8 SQ 04/08/17 22:00 05/08/17 21:59 04/12/17 13:49 5,000 UNIT Ondansetron HCl (Zofran Inj) 4 mg Q6H PRN IV 04/08/17 16:30 05/08/17 16:29 04/12/17 04:59 4 MG Sodium Chloride 1,000 ml @ 80 mls/hr [id number] IV 04/08/17 16:30 05/08/17 16:29 04/12/17 07:57 80 MLS/HR Morphine Sulfate (MoRPHine SULFATE INJ) 3 mg Q4H PRN IV 04/08/17 16:45 04/22/17 16:44 04/10/17 16:34 3 MG Latanoprost (Xalatan Oph Soln) 1 drops HS OPB 04/08/17 22:00 05/08/17 21:59 04/11/17 20:25 1 DROPS Lisinopril (Zestril Tab) 10 mg BID PO 04/08/17 20:00 05/08/17 20:59 04/12/17 09:55 10 MG Pantoprazole Sodium (Protonix Tab) 40 mg DAILY PO 04/09/17 08:00 05/09/17 08:59 04/12/17 07:58 40 MG Venlafaxine HCl (effeXOR EXTENDED REL CAP) 150 mg DAILY PO 04/09/17 08:00 05/09/17 08:59 04/12/17 07:59 150 MG Polyethylene (Miralax Powder Packet) 17 gm DAILY PRN PO 04/08/17 18:15 05/08/17 18:14 Oxycodone HCl (Oxycontin Tab) 30 mg Q12 PO 04/08/17 21:00 04/22/17 20:59 04/12/17 07:58 30 MG Famotidine 20 mg/ Dextrose 102 ml @ 200 mls/hr Q24H IV 04/08/17 22:00 05/08/17 21:59 04/11/17 20:27 200 MLS/HR Levothyroxine Sodium 37.5 mcg/ Syringe 1.875 ml @ 2 mls/min DAILY@09 IV 04/10/17 09:00 05/10/17 08:59 04/12/17 09:28 2 MLS/MIN Acetaminophen 650 mg/Empty Bag 65 ml @ 260 mls/hr Q6H PRN IV 04/09/17 18:45 05/09/17 18:44 Aspirin (Ecotrin Tab) 81 mg DAILY PO 04/10/17 08:00 05/10/17 07:59 04/12/17 07:58 81 MG Ciprofloxacin/ Dextrose 400 mg/ Prmx 200 ml @ 100 mls/hr Q12H IV 04/11/17 11:00 04/16/17 10:59 04/12/17 11:30 100 MLS/HR Enteral Nutritional Formula (Boost Glucose Control) 1 can [id number] PO 04/11/17 14:00 05/11/17 13:59 04/12/17 07:56 1 CAN Enteral Nutritional Formula (Boost Pudding) 1 cup QDD PO 04/12/17 17:00 05/12/17 16:59
[2017-04-12 23:53] VITALS: BP 114/77; PULSE 83; TEMP 36.6; O2SAT 97
[2017-04-13] MEDS ORDERED: NURSING DECISION MEDICATION ORDER SCH (02:15)
[2017-04-13] MEDS: BOOST GLUCOSE CONTROL PO SCH ×2 (06:05→14:00)
[2017-04-13] MEDS: HEPARIN SOD 5000 UNIT/0.5 ML CARP SQ SCH ×3 (06:06→22:05)
[2017-04-13] MEDS: ONDANSETRON INJ 2 MG/ML 2 ML VIAL IV PRN (06:46)
[2017-04-13 07:26] VITALS: BP 110/75; PULSE 101; TEMP 36.6; O2SAT 95
[2017-04-13] MEDS: ASPIRIN 81 MG ECTAB PO SCH (07:56)
[2017-04-13] MEDS: NYSTATIN SUSP 500,000 U/5 ML UDC PO SCH ×4 (07:56→20:34)
[2017-04-13] MEDS: PANTOprazole SOD 40 MG TAB PO SCH (07:56)
[2017-04-13] MEDS: FUROSEMIDE 20 MG TAB PO SCH (07:57)
[2017-04-13] MEDS: VENLAFAXINE HCL XR 150 MG CAPXR PO SCH (07:57)
[2017-04-13] MEDS: LISINOPRIL 10 MG TAB PO SCH ×2 (07:58→20:34)
[2017-04-13 08:07] LABS: BUN/CREATININE RATIO 10.8 (10-20); CALCIUM 8.1 mg/dl (8.5-10.1); CREATININE 0.88 mg/dl (0.60-1.20); MAGNESIUM 1.8 mg/dl (1.8-2.4); POTASSIUM 3.9 mmol/L (3.5-5.1)
[2017-04-13] MEDS: LEVOTHYROXINE SODIUM INJ 37.5 MCG in SYRINGE 0 ML IV SCH (08:42)
[2017-04-13] MEDS: OXYCODONE HCL 10 MG TABCR (OXYCONTIN) PO SCH ×2 (08:42→20:44)
[2017-04-13] MEDS: SODIUM CHLORIDE 0.9% 1000ML 1,000 ML IV SCH ×2 (08:43→21:58)
[2017-04-13] MEDS: CIPROFLOXACIN / D5W 400 MG in PREMIXED IN D5W 200 ML IV SCH ×3 (11:55→23:16)
[2017-04-13 16:14] VITALS: BP 109/73; PULSE 90; TEMP 36.4; O2SAT 96
[2017-04-13] MEDS: BOOST VANILLA PUDDING CUP PO SCH (17:12)
[2017-04-13 20:32] VITALS: BP 106/72; PULSE 91
[2017-04-13] MEDS: LATANOPROST 0.005% OP SOLN 2.5 ML BTL OPB SCH (20:43)
[2017-04-13] MEDS: POLYETHYLENE (MIRALAX) 17 GM PACK PO PRN (20:45)
[2017-04-13] MEDS: FAMOTIDINE IV INJ 20 MG in DEXTROSE 5% 100ML 100 ML IV SCH (21:58)
--- NOTE | 2017-04-14 00:06 | Progress Note ---
Medicine Progress Note Date & Time of Visit: Apr 13, 2017 at 1100. Subjective Tolerating current diet denies pain leg swelling is improved axiilary and breast rash has improved. Objective Last 8 Hrs Date Time Temp Pulse Resp B/P (MAP) Pulse Ox O2 Delivery O2 Flow Rate FiO2 04/13/17 16:14 36.4 90 18 109/73 (85) 96 Room Air Physical Exam: GEN: WNWD, in no acute distress, alert and oriented to self location and to date. HEENT: NC/AT, normal sclerae, MMM, tongue is a beefy red color and appears irritated. CARDIO: reg rate, S1/2 heard without m/g/r LUNGS: CTA bilaterally, no crackles, rales or wheezes, good diaphragmatic excursion ABD: soft, non-tender, non-distended, no rebound or guarding, +BS EXTREMITY: RP and DP palpable 2+ bilat, 3+ LE swelling or edema blaterally, extremities are warm and well-perfused NEURO: CN 2-12 grossly intact MUSC: 5/5 strength throughout, no focal deficits SKIN: warm and dry, erythematous warm rash under breasts and in axillae bilaterally-zinc oxide/menthol cream is in place. Laboratory Results: 04/11/17 07:53 04/13/17 06:58 Test 04/08/17 13:00 04/08/17 13:21 04/08/17 13:25 04/08/17 14:35 Urine Color YELLOW Urine Appearance CLEAR (CLEAR) Urine pH 7.0 (4.5-7.5) Urine Specific [place] 1.014 (1.000-1.030) Urine Protein NEG (NEG) Urine Glucose (UA) 2+ (NEG) Urine Ketones 1+ (NEG) Urine Occult Blood 1+ (NEG) Urine Nitrite NEG (NEG) Urine Bilirubin NEG (NEG) Urine Urobilinogen NEG (NEG) Urine Leukocyte Esterase LARGE (NEG) Urine WBC (Auto) >30 /hpf (0-5) Urine RBC (Auto) 0-4 /hpf (0-4) Urine Hyaline Casts (Auto) 1-5 /lpf (0-5) Urine Epithelial Cells (Auto) >30 /lpf (0-5) Urine Bacteria (Auto) NEG (NEG) Urine Renal Epithelial Cells 5-10 /lpf (0-5) Urine Opiates Screen NEG (NEG) Urine Methadone, Qualitative NEG (NEG) Urine Barbiturates NEG (NEG) Urine Phencyclidine (PCP) Level NEG (NEG) Ur Amphetamine/Methamphetamine NEG (NEG) MDMA (Ecstasy) Screen NEG (NEG) Urine Benzodiazepines Screen NEG (NEG) Urine Cocaine Metabolite NEG (NEG) Urine Marijuana (THC) NEG (NEG) Bedside Lactic Acid Venous 1.41 mmol/L (0.90-1.70) Immature Granulocyte % (Auto) 0.7 % White Blood Count 8.72 K/uL (4.8-10.8) Red Blood Count 5.23 M/uL (4.2-5.4) Hemoglobin 15.3 g/dL (12.0-16.0) Hematocrit 46.4 % (37-47) Mean Corpuscular Volume 88.7 fL (80-100) Mean Corpuscular Hemoglobin 29.3 pg (25-34) Mean Corpuscular Hemoglobin Concent 33.0 g/dl (32-36) Platelet Count 179 K/uL (130-400) Mean Platelet Volume 10.0 fL (7.4-10.4) Neutrophils (%) (Auto) 82.3 % Lymphocytes (%) (Auto) 9.5 % Monocytes (%) (Auto) 5.7 % Eosinophils (%) (Auto) 1.7 % Basophils (%) (Auto) 0.1 % Neutrophils # (Auto) 7.17 K/uL (1.4-6.5) Lymphocytes # (Auto) 0.83 K/uL (1.2-3.4) Monocytes # (Auto) 0.50 K/uL (0.11-0.59) Eosinophils # (Auto) 0.15 K/uL (0-0.5) Basophils # (Auto) 0.01 K/uL (0-0.2) Immature Granulocyte # (Auto) 0.06 K/uL (0.00-0.02) Erythrocyte Sedimentation Rate 9 mm/hr (0-21) Prothrombin Time 11.2 SECONDS (9.0-12.0) Prothromb Time International Ratio 1.0 (0.9-1.1) Activated Partial Thromboplast Time 27.4 SECONDS (21.0-31.0) Partial Thromboplastin Ratio 1.1 Total Bilirubin 1.0 mg/dl (0.2-1) Aspartate Amino Transf (AST/SGOT) 27 U/L (15-37) Alanine Aminotransferase (ALT/SGPT) 15 U/L (12-78) Alkaline Phosphatase 71 U/L (45-117) Ammonia < 10.0 umol/L (11-32) Total Creatine Kinase 48 U/L (26-192) Creatine Kinase MB 3.9 ng/ml (0.5-3.6) Creatine Kinase MB Ratio 8.1 (0-3.0) Troponin I 0.039 ng/ml (0-0.045) C-Reactive Protein 1.24 mg/dl (0-0.29) Pro-B-Type Natriuretic Peptide 1471 pg/ml (0-900) Total Protein 5.5 gm/dl (6.4-8.2) Albumin 2.4 gm/dl (3.4-5.0) Globulin 3.1 gm/dl (2.5-4.0) Albumin/Globulin Ratio 0.8 (0.9-2) Lipase 343 U/L (73-393) Thyroid Stimulating Hormone (TSH) 0.369 uIu/ml (0.300-4.500) Free Thyroxine 1.62 ng/dl (0.80-1.60) Venous Blood pH 7.42 (7.36-7.41) Venous Blood Partial Pressure CO2 48 mmHg (38.0-50.0) Venous Blood Partial Pressure O2 29 mmHg Venous Blood HCO3 30 mmol/L Venous Blood Oxygen Saturation < 60.0 % Venous Blood Base Excess 5.0 mEq/L Test 04/10/17 07:20 04/11/17 07:53 04/11/17 20:36 04/13/17 06:58 Phosphorus Level 3.0 mg/dl (2.5-4.9) Red Blood Count 4.39 M/uL (4.2-5.4) Mean Corpuscular Volume 89.5 fL (80-100) Mean Corpuscular Hemoglobin 30.3 pg (25-34) Mean Corpuscular Hemoglobin Concent 33.8 g/dl (32-36) RDW Standard Deviation 47.1 fL (36.4-46.3) RDW Coefficient of Variation 14.4 % (11.5-14.5) Mean Platelet Volume 10.1 fL (7.4-10.4) Bedside Glucose 96 mg/dl (70-90) Anion Gap 5.0 mmol/L (3-11) Est Creatinine Clear Calc Drug Dose 46.6 ml/min Estimated GFR () 75.0 Estimated GFR (Non- 64.7 BUN/Creatinine Ratio 10.8 (10-20) Calcium Level 8.1 mg/dl (8.5-10.1) Magnesium Level 1.8 mg/dl (1.8-2.4) Date/Time Source Procedure Growth Status 04/08/17 14:35 Blood Blood Culture - Preliminary NO GROWTH TO DATE. Resulted 04/08/17 13:00 Urine,Catheterized Urine Culture - Final Pseudomonas Aeruginosa Complete Last 24 Hours Test 04/13/17 06:58 Sodium Level 135 mmol/L Potassium Level 3.9 mmol/L Chloride Level 105 mmol/L Carbon Dioxide Level 25 mmol/L Anion Gap 5.0 mmol/L Blood Urea Nitrogen 10 mg/dl Creatinine 0.88 mg/dl Est Creatinine Clear Calc Drug Dose 46.6 ml/min Estimated GFR () 75.0 Estimated GFR (Non- 64.7 BUN/Creatinine Ratio 10.8 Random Glucose 89 mg/dl Calcium Level 8.1 mg/dl Magnesium Level 1.8 mg/dl Assessment & Plan 76 yo F with worsening dysphagia and intolerance to PO 1. Dysphagia/vomiting-tortuous esophagus and possible superimposed dysmotilty in setting of hiatal hernia. She has been tolerating mechanical soft moist diet Apprec electronic health records specialist ensuring that she is meeting her goals. After discussion with TELEVISION SCHEDULE COORDINATOR, she prefers to avoid a pureed diet as it is not moist enough. GI following. Apprec recs. For now we are continuing to try the PO method and may consider other more invasive options after a few days (NGT trial , etc) 2. Bacteriuria-gave some pyridium for "pressure" in setting of chronic incontinence in poor historian. Recent treatment of UTI and repeat UCx reveals 50K CFU so not treated initially. However patient is requesting abx, and with questionable symptoms, this sounds reasonable-cont Cipro 3. HTN-cont lisinopril BID 4. h/o TIA-cont ASA 5. DMII-diet controlled. She has been hypoglycemic on occasion with poor PO intake. 6. CKD Stg III-at baseline. 7. Chronic back pain and generalized OA-cont oxycontin BID; off chronic prednisone. 8. LE swelling-edema present, poss venous stasis. TEDs ordered and home Lasix restarted, improved 9. Thrush-started Nystatin QID x 10 days 10. Rash-under breasts and in axillae bilaterally-daughter applying cream with menthol in it but I'm concerned about inflammation with this. I gave a zinc oxide cream and consulted wound care. Appreciate going with wound care nurse recs instead of the zinc oxide cream provided. DVT PROPHYLAXIS Heparin SQ FULL CODE DISPOSITION PT recommends rehab; OK to go when she is medically stable and tolerating enough PO to support her nutritional needs. DO [facility] Hospital[facility] Consultants: GI, TELEVISION SCHEDULE COORDINATOR, PT/OT Current Inpatient Medications: Current Inpatient Medications Medications (Trade) Dose Ordered Sig/Fab Route Start Time Stop Time Status Last Admin Dose Admin Heparin Sodium (Porcine) (Heparin Sq 5000 Unit/0.5ml) 5,000 unit Q8 SQ 04/08/17 22:00 05/08/17 21:59 04/13/17 06:06 5,000 UNIT Ondansetron HCl (Zofran Inj) 4 mg Q6H PRN IV 04/08/17 16:30 05/08/17 16:29 04/13/17 06:46 4 MG Sodium Chloride 1,000 ml @ 80 mls/hr [id number] IV 04/08/17 16:30 05/08/17 16:29 04/13/17 08:43 80 MLS/HR Morphine Sulfate (MoRPHine SULFATE INJ) 3 mg Q4H PRN IV 04/08/17 16:45 04/22/17 16:44 04/10/17 16:34 3 MG Latanoprost (Xalatan Oph Soln) 1 drops HS OPB 04/08/17 22:00 05/08/17 21:59 04/12/17 20:44 1 DROPS Lisinopril (Zestril Tab) 10 mg BID PO 04/08/17 20:00 05/08/17 20:59 04/13/17 07:58 10 MG Pantoprazole Sodium (Protonix Tab) 40 mg DAILY PO 04/09/17 08:00 05/09/17 08:59 04/13/17 07:56 40 MG Venlafaxine HCl (effeXOR EXTENDED REL CAP) 150 mg DAILY PO 04/09/17 08:00 05/09/17 08:59 04/13/17 07:57 150 MG Polyethylene (Miralax Powder Packet) 17 gm DAILY PRN PO 04/08/17 18:15 05/08/17 18:14 04/12/17 15:49 17 GM Oxycodone HCl (Oxycontin Tab) 30 mg Q12 PO 04/08/17 21:00 04/22/17 20:59 04/13/17 08:42 30 MG Famotidine 20 mg/ Dextrose 102 ml @ 200 mls/hr Q24H IV 04/08/17 22:00 05/08/17 21:59 04/12/17 22:23 200 MLS/HR Levothyroxine Sodium 37.5 mcg/ Syringe 1.875 ml @ 2 mls/min DAILY@09 IV 04/10/17 09:00 05/10/17 08:59 04/13/17 08:42 2 MLS/MIN Acetaminophen 650 mg/Empty Bag 65 ml @ 260 mls/hr Q6H PRN IV 04/09/17 18:45 05/09/17 18:44 Aspirin (Ecotrin Tab) 81 mg DAILY PO 04/10/17 08:00 05/10/17 07:59 04/13/17 07:56 81 MG Ciprofloxacin/ Dextrose 400 mg/ Prmx 200 ml @ 100 mls/hr Q12H IV 04/11/17 11:00 04/16/17 10:59 04/13/17 11:55 100 MLS/HR Enteral Nutritional Formula (Boost Glucose Control) 1 can [id number] PO 04/11/17 14:00 05/11/17 13:59 04/13/17 06:05 1 CAN Enteral Nutritional Formula (Boost Pudding) 1 cup QDD PO 04/12/17 17:00 05/12/17 16:59 Lactulose (Chronulac Syrup) 30 gm TID PRN PO 04/12/17 14:15 05/12/17 14:14 Furosemide (Lasix Tab) 20 mg QAM PO 04/13/17 08:00 05/13/17 07:59 04/13/17 07:57 20 MG Nystatin (Mycostatin Susp) 5 ml QID PO 04/12/17 17:00 04/22/17 16:59 04/13/17 11:55 5 ML Miconazole Nitrate (Desenex Powder) 1 appln PRN PRN EXT 04/13/17 02:15 05/13/17 02:14
[2017-04-14 00:18] VITALS: BP 119/76; PULSE 99; TEMP 36.7
[2017-04-14 00:43] VITALS: O2SAT 100
[2017-04-14] MEDS: HEPARIN SOD 5000 UNIT/0.5 ML CARP SQ SCH ×3 (06:22→20:57)
[2017-04-14] MEDS: BOOST GLUCOSE CONTROL PO SCH ×2 (06:23→15:09)
[2017-04-14 08:15] VITALS: BP 104/62; PULSE 101; TEMP 36.7; O2SAT 96
[2017-04-14] MEDS: LEVOTHYROXINE SODIUM INJ 37.5 MCG in SYRINGE 0 ML IV SCH (09:29)
[2017-04-14] MEDS: NYSTATIN SUSP 500,000 U/5 ML UDC PO SCH ×4 (09:30→21:00)
[2017-04-14] MEDS: ASPIRIN 81 MG ECTAB PO SCH (09:30)
[2017-04-14] MEDS: PANTOprazole SOD 40 MG TAB PO SCH (09:30)
[2017-04-14] MEDS: VENLAFAXINE HCL XR 150 MG CAPXR PO SCH (09:31)
[2017-04-14] MEDS: FUROSEMIDE 20 MG TAB PO SCH (09:31)
[2017-04-14] MEDS: LISINOPRIL 10 MG TAB PO SCH ×2 (09:32→21:02)
[2017-04-14] MEDS: OXYCODONE HCL 10 MG TABCR (OXYCONTIN) PO SCH ×2 (09:40→21:01)
[2017-04-14] MEDS: ONDANSETRON INJ 2 MG/ML 2 ML VIAL IV PRN ×2 (09:40→15:07)
[2017-04-14] MEDS: SODIUM CHLORIDE 0.9% 1000ML 1,000 ML IV SCH (09:40)
[2017-04-14] MEDS: CIPROFLOXACIN / D5W 400 MG in PREMIXED IN D5W 200 ML IV SCH (09:41)
[2017-04-14] MEDS: BUTT PASTE 171 APPLN/57 GM JAR EXT PRN (10:35)
[2017-04-14] MEDS: MICONAZOLE NITRATE POWDER 43 GM EXT PRN ×2 (10:35→21:09)
[2017-04-14] MEDS ORDERED: LORAZEPAM 0.5 MG TAB PO PRN (15:15)
[2017-04-14] MEDS: BOOST VANILLA PUDDING CUP PO SCH (15:55)
[2017-04-14 16:11] VITALS: BP 134/71; PULSE 101; TEMP 36.7; O2SAT 96
[2017-04-14] MEDS ORDERED: FLUOCINONIDE 0.05% CR 15 GM TUBE EXT PRN (17:45)
[2017-04-14] MEDS ORDERED: LIDOCAINE HCL 2% VISC SOLN 20 ML UDC PO PRN (17:45)
--- NOTE | 2017-04-14 17:58 | Progress Note ---
Internal Med Progress Note Date of Service: Apr 14, 2017. Provider Documentation: SUBJECTIVE: The patient was seen and examined Generally tired and lethargic More swelling of the legs with redness OBJECTIVE: Vital Signs-as noted below Exam: General-No distress at rest Eyes-Normal ENT-normal Neck-supple Lungs-Decreased breath sound bilaterally Heart-Regular,no murmur appreciated Abdomen-Benign,no masses,bowel sound present Skin excoriation under the breasts and bilaterally in groins Extremities-Bilateral leg edema with increasing redness and tenderness Neuro-AAOx3 Lab data as noted below. ASSESSMENT & PLAN: 76 yo F with worsening dysphagia and intolerance to PO Dysphagia/vomiting -tortuous esophagus and possible superimposed dysmotility in setting of hiatal hernia. She has been tolerating mechanical soft moist diet Appreciate Speech therapy recommendation GI following. NO more dilatation for now Tolerating oral diet as per recommendation Bacteriuria-gave some Pyridium for "pressure" in setting of chronic incontinence in poor historian. Recent treatment of UTI and repeat UCx reveals 50K CFU so not treated initially. Has been on Cipro Since legs are getting worse-will change to Unasyn and transition to Augmentin HTN-cont lisinopril BID h/o TIA-cont ASA DMII-diet controlled. She has been hypoglycemic on occasion with poor PO intake. CKD Stg III-at baseline. Chronic back pain and generalized OA-cont OxyContin BID; off chronic prednisone. Bilateral Legs swelling-edema present, poss venous stasis. Now with cellulitis Will start Unasyn TEDs ordered and home Lasix restarted, improved Thrush-started Nystatin QID x 10 days Rash-under breasts and in axillae bilaterally-daughter applying cream with menthol in it but I'm concerned about inflammation with this. I gave a zinc oxide cream and consulted wound care. Appreciate going with wound care nurse recs instead of the zinc oxide cream provided. DVT PROPHYLAXIS Heparin SQ FULL CODE DISPOSITION PT recommends rehab; OK to go when she is medically stable and tolerating enough PO to support her nutritional needs. Discussed with the Daughter in detailed Vital Signs: Date Time Temp Pulse Resp B/P (MAP) Pulse Ox O2 Delivery O2 Flow Rate FiO2 04/14/17 16:11 36.7 101 20 134/71 (92) 96 Room Air 04/14/17 16:00 Room Air 04/14/17 08:15 36.7 101 16 104/62 (76) 96 Room Air 04/14/17 08:10 Room Air 04/14/17 01:27 Room Air 04/14/17 00:43 100 Room Air 04/14/17 00:18 36.7 99 20 119/76 (90) Room Air 04/13/17 20:32 91 106/72 (83) 04/13/17 20:00 Room Air
[2017-04-14] MEDS ORDERED: AMPICILLIN/SULBACTAM SOD INJ 3,000 MG in SODIUM CHLORIDE 0.9% 100ML 100 ML IV ONE (18:00)
[2017-04-14] MEDS: LATANOPROST 0.005% OP SOLN 2.5 ML BTL OPB SCH (19:20)
[2017-04-14] MEDS: AMPICILLIN/SULBACTAM SOD INJ 3,000 MG in SODIUM CHLORIDE 0.9% 100ML 100 ML IV SCH (23:35)
[2017-04-14 23:43] VITALS: BP 114/79; PULSE 72; TEMP 36.8; O2SAT 95
[2017-04-15] VITALS: O2SAT 95
[2017-04-15] MEDS: AMPICILLIN/SULBACTAM SOD INJ 3,000 MG in SODIUM CHLORIDE 0.9% 100ML 100 ML IV SCH ×4 (05:47→23:43)
[2017-04-15] MEDS: LEVOTHYROXINE 75 MCG TAB PO SCH (05:47)
[2017-04-15] MEDS: HEPARIN SOD 5000 UNIT/0.5 ML CARP SQ SCH ×3 (05:49→20:49)
[2017-04-15] MEDS: BOOST GLUCOSE CONTROL PO SCH ×2 (07:33→13:42)
[2017-04-15 07:49] VITALS: BP 122/83; PULSE 73; TEMP 36.7; O2SAT 96
[2017-04-15 07:52] LABS: CALCIUM 7.8 mg/dl (8.5-10.1); CREATININE 0.79 mg/dl (0.60-1.20); MAGNESIUM 1.2 mg/dl (1.8-2.4); POTASSIUM 3.7 mmol/L (3.5-5.1)
[2017-04-15 07:53] LABS: PHOSPHORUS 2.1 mg/dl (2.5-4.9)
[2017-04-15] MEDS ORDERED: PANTOprazole SOD 40 MG TAB PO SCH (08:00)
[2017-04-15] MEDS: FLUTICASONE PROPIONATE NA SPR 16 GM BTL NAE SCH (08:31)
[2017-04-15] MEDS: MICONAZOLE NITRATE POWDER 43 GM EXT PRN ×2 (08:34→20:51)
[2017-04-15] MEDS: BUTT PASTE 171 APPLN/57 GM JAR EXT PRN (08:34)
[2017-04-15] MEDS: ONDANSETRON INJ 2 MG/ML 2 ML VIAL IV PRN ×2 (08:36→20:13)
[2017-04-15] MEDS: ASPIRIN 81 MG ECTAB PO SCH (08:39)
[2017-04-15] MEDS: VENLAFAXINE HCL XR 150 MG CAPXR PO SCH (08:39)
[2017-04-15] MEDS: FUROSEMIDE 40 MG TAB PO SCH (08:40)
[2017-04-15] MEDS: PANTOprazole SOD 40 MG TAB PO SCH (08:41)
[2017-04-15] MEDS: OXYCODONE HCL 10 MG TABCR (OXYCONTIN) PO SCH ×2 (08:42→20:48)
[2017-04-15] MEDS: LISINOPRIL 10 MG TAB PO SCH ×2 (08:42→20:49)
[2017-04-15] MEDS: NYSTATIN SUSP 500,000 U/5 ML UDC PO SCH ×4 (09:43→20:47)
[2017-04-15] MEDS ORDERED: POTASSIUM PHOS 3 MMOL/1 ML INFUSION IV STA (10:22)
[2017-04-15] MEDS: MAGNESIUM SULFATE 1GM / D5W 1 GM in PREMIXED IN D5W 100 ML IV SCH ×2 (10:48→11:40)
[2017-04-15] MEDS ORDERED: POTASSIUM PHOSPHATE INJ 21 MMOL in SODIUM CHLORIDE 0.9% 500ML 500 ML IV SCH (13:00)
[2017-04-15 15:49] VITALS: BP 125/77; PULSE 95; TEMP 36.8; O2SAT 94
--- NOTE | 2017-04-15 16:03 | Progress Note ---
Internal Med Progress Note Date of Service: Apr 15, 2017. Provider Documentation: SUBJECTIVE: The patient was seen and examined Generally tired and lethargic Much better today Legs swelling and redness are much better Has urinary incontinence OBJECTIVE: Vital Signs-as noted below Exam: General-No distress at rest Eyes-Normal ENT-normal Neck-supple Lungs-Decreased breath sound bilaterally Heart-Regular,no murmur appreciated Abdomen-Benign,no masses,bowel sound present Skin excoriation under the breasts and bilaterally in groins Extremities-Bilateral leg edema and redness jamel much better Neuro-AAOx3 Lab data as noted below. ASSESSMENT & PLAN: 76 yo F with worsening dysphagia and intolerance to PO Bilateral Legs Cellulitis Bilateral Legs swelling-edema present, poss venous stasis Started on IV Unasyn TEDs ordered and home Lasix restarted, improved Urinary Incontinence Likely to improve No medication advised Dysphagia/vomiting -tortuous esophagus and possible superimposed dysmotility in setting of hiatal hernia. She has been tolerating mechanical soft moist diet Appreciate Speech therapy recommendation GI following. NO more dilatation for now Tolerating oral diet as per recommendation Bacteriuria-gave some Pyridium for "pressure" in setting of chronic incontinence in poor historian. Recent treatment of UTI and repeat UCx reveals 50K CFU so not treated initially. Has been on Cipro Since legs are getting worse-will change to Unasyn and transition to Augmentin HTN-cont lisinopril BID h/o TIA-cont ASA DMII-diet controlled. She has been hypoglycemic on occasion with poor PO intake. CKD Stg III-at baseline. Chronic back pain and generalized OA-cont OxyContin BID; off chronic prednisone. Thrush-started Nystatin QID x 10 days Rash-under breasts and in axillae bilaterally-daughter applying cream with menthol in it but I'm concerned about inflammation with this. I gave a zinc oxide cream and consulted wound care. Appreciate going with wound care nurse recs instead of the zinc oxide cream provided. DVT PROPHYLAXIS Heparin SQ FULL CODE DISPOSITION PT recommends rehab; OK to go when she is medically stable and tolerating enough PO to support her nutritional needs. Discussed with the Daughter in detailed Likely discharged tomorrow Vital Signs: Date Time Temp Pulse Resp B/P (MAP) Pulse Ox O2 Delivery O2 Flow Rate FiO2 04/15/17 15:49 36.8 95 18 125/77 (93) 94 Room Air 04/15/17 08:00 Room Air 04/15/17 07:49 36.7 73 18 122/83 (96) 96 Room Air 04/15/17 00:00 95 Room Air 04/14/17 23:43 36.8 72 16 114/79 (91) 95 Room Air 04/14/17 16:11 36.7 101 20 134/71 (92) 96 Room Air 04/14/17 16:00 Room Air Lab Results: Results Past 24 Hours Test 04/15/17 07:01 Range/Units Sodium Level 137 136-145 mmol/L Potassium Level 3.7 3.5-5.1 mmol/L Chloride Level 104 98-107 mmol/L Carbon Dioxide Level 26 21-32 mmol/L Anion Gap 7.0 3-11 mmol/L Blood Urea Nitrogen 8 7-18 mg/dl Creatinine 0.79 0.60-1.20 mg/dl Est Creatinine Clear Calc Drug Dose 51.9 ml/min Estimated GFR () 85.5 Estimated GFR (Non- 73.7 BUN/Creatinine Ratio 10.0 10-20 Random Glucose 100 70-99 mg/dl Calcium Level 7.8 8.5-10.1 mg/dl Phosphorus Level 2.1 2.5-4.9 mg/dl Magnesium Level 1.2 1.8-2.4 mg/dl
[2017-04-15] MEDS ORDERED: BOOST VANILLA PUDDING CUP PO SCH (17:00)
[2017-04-15] MEDS ORDERED: AMPICILLIN/SULBACTAM SOD INJ 3,000 MG in SODIUM CHLORIDE 0.9% 100ML 100 ML IV ONE (18:00)
[2017-04-15] MEDS: LATANOPROST 0.005% OP SOLN 2.5 ML BTL OPB SCH (20:48)
[2017-04-15 23:04] VITALS: BP 117/77; PULSE 90; TEMP 36.6; O2SAT 96
[2017-04-16] MEDS: HEPARIN SOD 5000 UNIT/0.5 ML CARP SQ SCH ×2 (05:23→14:00)
[2017-04-16] MEDS: AMPICILLIN/SULBACTAM SOD INJ 3,000 MG in SODIUM CHLORIDE 0.9% 100ML 100 ML IV SCH ×2 (05:24→13:15)
[2017-04-16] MEDS: LEVOTHYROXINE 75 MCG TAB PO SCH (05:24)
[2017-04-16] MEDS ORDERED: BOOST GLUCOSE CONTROL PO SCH (07:00)
[2017-04-16 07:30] VITALS: BP 109/72; PULSE 98; TEMP 36.6; O2SAT 90
[2017-04-16] MEDS: NYSTATIN SUSP 500,000 U/5 ML UDC PO SCH ×3 (09:45→17:29)
[2017-04-16] MEDS: ASPIRIN 81 MG ECTAB PO SCH (09:46)
[2017-04-16] MEDS: LISINOPRIL 10 MG TAB PO SCH (09:46)
[2017-04-16] MEDS: VENLAFAXINE HCL XR 150 MG CAPXR PO SCH (09:46)
[2017-04-16] MEDS: FUROSEMIDE 40 MG TAB PO SCH (09:46)
[2017-04-16] MEDS: FLUTICASONE PROPIONATE NA SPR 16 GM BTL NAE SCH (09:47)
[2017-04-16] MEDS: BOOST GLUCOSE CONTROL PO SCH ×2 (10:11→14:00)
[2017-04-16] MEDS: OXYCODONE HCL 10 MG TABCR (OXYCONTIN) PO SCH (10:11)
[2017-04-16] MEDS: PANTOprazole SOD 40 MG TAB PO SCH (10:49)
[2017-04-16 13:28] LABS: MEAN CELL VOLUME 86.1 fL (80-100); MEAN CORPUSCULAR HEMOGLOBIN 29.9 pg (25-34); MEAN CORPUSCULAR HGB CONC 34.7 g/dl (32-36); MEAN PLATELET VOLUME 10.2 fL (7.4-10.4); PLATELET COUNT 149 K/uL (130-400); RED BLOOD COUNT 4.18 M/uL (4.2-5.4); WHITE BLOOD COUNT 6.77 K/uL (4.8-10.8)
[2017-04-16 13:57] LABS: BUN/CREATININE RATIO 9.5 (10-20); CALCIUM 8.1 mg/dl (8.5-10.1); CREATININE 0.93 mg/dl (0.60-1.20); MAGNESIUM 1.4 mg/dl (1.8-2.4); POTASSIUM 3.2 mmol/L (3.5-5.1)
[2017-04-16 14:00] LABS: PHOSPHORUS 2.7 mg/dl (2.5-4.9)
[2017-04-16] MEDS ORDERED: POTASSIUM CHLORIDE 10 MEQ TABCR PO STA (14:07)
--- NOTE | 2017-04-16 14:16 | Progress Note ---
Internal Med Progress Note Date of Service: Apr 16, 2017. Provider Documentation: SUBJECTIVE: The patient was seen and examined Generally tired and lethargic Much better today Legs swelling and redness are much better Has urinary incontinence Denies any symptoms Worried about going home OBJECTIVE: Vital Signs-as noted below Exam: General-No distress at rest Eyes-Normal ENT-normal Neck-supple Lungs-Decreased breath sound bilaterally Heart-Regular,no murmur appreciated Abdomen-Benign,no masses,bowel sound present Skin excoriation under the breasts and bilaterally in groins-much improved Extremities-Bilateral leg edema and redness is much better Neuro-AAOx3 Lab data as noted below. ASSESSMENT & PLAN: 76 yo F with worsening dysphagia and intolerance to PO Bilateral Legs Cellulitis Bilateral Legs swelling-edema present, poss venous stasis Started on IV Unasyn TEDs ordered and home Lasix restarted, improved Will change to Oral Augmentin for 10 days in total Urinary Incontinence Likely to improve No medication advised Reassured -may need to see BIOLOGY TE[employer]ER Dysphagia/vomiting -tortuous esophagus and possible superimposed dysmotility in setting of hiatal hernia. She has been tolerating mechanical soft moist diet Appreciate Speech therapy recommendation GI following. NO more dilatation for now Tolerating oral diet as per recommendation Bacteriuria-gave some Pyridium for "pressure" in setting of chronic incontinence in poor historian. Recent treatment of UTI and repeat UCx reveals 50K CFU so not treated initially. Has been on Cipro Since legs are getting worse-will change to Unasyn and transition to Augmentin No more Dysuria HTN-cont lisinopril BID h/o TIA-cont ASA DMII-diet controlled. She has been hypoglycemic on occasion with poor PO intake. CKD Stg III-at baseline. Chronic back pain and generalized OA-cont OxyContin BID; off chronic prednisone. Thrush-started Nystatin QID x 10 days Rash-under breasts and in axillae bilaterally-daughter applying cream with menthol in it but I'm concerned about inflammation with this. Appreciate going with wound care nurse jami instead of the zinc oxide cream provided. DVT PROPHYLAXIS Heparin SQ FULL CODE DISPOSITION PT recommends rehab; OK to go when she is medically stable and tolerating enough PO to support her nutritional needs. Discussed with the Daughter in detailed Changed her mind to go to rehab again Likely to be discharged today Vital Signs: Date Time Temp Pulse Resp B/P (MAP) Pulse Ox O2 Delivery O2 Flow Rate FiO2 04/16/17 07:30 36.6 98 20 109/72 (84) 90 Room Air 04/16/17 00:00 Room Air 04/15/17 23:04 36.6 90 18 117/77 (90) 96 Room Air 04/15/17 16:00 Room Air 04/15/17 15:49 36.8 95 18 125/77 (93) 94 Room Air Lab Results: Results Past 24 Hours Test 04/16/17 07:46 04/16/17 11:29 04/16/17 13:09 Range/Units Bedside Glucose 86 118 70-90 mg/dl White Blood Count 6.77 4.8-10.8 K/uL Red Blood Count 4.18 4.2-5.4 M/uL Hemoglobin 12.5 12.0-16.0 g/dL Hematocrit 36.0 37-47 % Mean Corpuscular Volume 86.1 80-100 fL Mean Corpuscular Hemoglobin 29.9 25-34 pg Mean Corpuscular Hemoglobin Concent 34.7 32-36 g/dl RDW Standard Deviation 44.3 36.4-46.3 fL RDW Coefficient of Variation 14.3 11.5-14.5 % Platelet Count 149 130-400 K/uL Mean Platelet Volume 10.2 7.4-10.4 fL Sodium Level 136 136-145 mmol/L Potassium Level 3.2 3.5-5.1 mmol/L Chloride Level 101 98-107 mmol/L Carbon Dioxide Level 26 21-32 mmol/L Anion Gap 9.0 3-11 mmol/L Blood Urea Nitrogen 9 7-18 mg/dl Creatinine 0.93 0.60-1.20 mg/dl Est Creatinine Clear Calc Drug Dose 44.1 ml/min Estimated GFR () 70.2 Estimated GFR (Non- 60.5 BUN/Creatinine Ratio 9.5 10-20 Random Glucose 140 70-99 mg/dl Calcium Level 8.1 8.5-10.1 mg/dl Phosphorus Level 2.7 2.5-4.9 mg/dl Magnesium Level 1.4 1.8-2.4 mg/dl
[2017-04-16] MEDS ORDERED: MAGNESIUM SULFATE 1GM / D5W 1 GM in PREMIXED IN D5W 100 ML IV ONE (14:30)
[2017-04-16] MEDS ORDERED: AMOXICILLIN/CLAVULANATE TAB 875 MG TAB PO ONE (16:45)
[2017-04-16] MEDS ORDERED: AMOXICILLIN/CLAVULANATE TAB 875 MG TAB PO SCH (17:00)
[2017-04-16 18:26] VITALS: BP 109/72; PULSE 98; TEMP 36.6; O2SAT 90
[2017-04-16] MEDS ORDERED: OXYC-787 PO (18:45)
[2017-04-16] MEDS ORDERED: AMOX1TAB43 PO (18:45)
--- NOTE | 2017-04-16 18:50 | Discharge Instructions ---
Discharge Instructions Date of Service Apr 16, 2017. Admission Reason for Admission: Nausea And Vomiting Discharge Discharge Diagnosis / Problem: Esophageal Dysmotility,Bilateral Legs swelling Discharge Goals Goal(s): Prevent Disease Progression Activity Recommendations Activity Level: Assistance Required Therapies: Physical Therapy, Occupational Therapy . Additional Information Patient informed of condition: Yes Advance Directives: No DNR: No (Full Code without Mechanical ventilation) Level of Care: Skilled Communicable Disease: No Prognosis: Stable Oxygen at (LPM): 2 liters/min via NC PRN [place] Catheter: No Instructions / Follow-Up Instructions / Follow-Up As per Dena keyes provider Current Hospital Diet Patient's current hospital diet: Diabetes Type 2 Diet, Low Sodium Diet (2gm Na) Discharge Diet Recommended Diet: Low Sodium Diet (2gm Na), Diabetes Type 2 Diet Fluid Restriction: 1500 ml (6 cups) Pending Studies Studies pending at discharge: no Physician Orders On Transfer POLST Discussion: Not Applicable Medical Emergencies . Who to Call and When: Medical Emergencies: If at any time you feel your situation is an emergency, please call 911 immediately. . Non-Emergent Contact Non-Emergency issues call your: Primary Care Provider . Past History Medical & Surgical History: (1) Depression (2) Hypothyroid (3) Diabetes mellitus type 2, diet-controlled (4) HTN (hypertension) (5) KENAI (iron deficiency anemia) (6) Rectal prolapse (7) Gastric ulcer (8) H/O shoulder surgery (9) H/O umbilical hernia repair (10) CKD (chronic kidney disease), stage III . "Provider Documentation" section prepared by Eldon Khan. . Core Measure Problem Core Measures: None
[2017-04-16] MEDS ORDERED: MAGNESIUM OXIDE 400 MG TAB PO SCH (20:00)
--- NOTE | 2017-04-17 08:48 | Discharge Summary ---
Discharge Summary Date of Service Apr 17, 2017. Discharge Summary Admission Date: Apr 08, 2017 at 16:29 Discharge Date: Apr 16, 2017 Discharge Disposition: longterm facility Principal Diagnosis: Esophageal Dysmotility,Bilateral Legs swelling Secondary Diagnoses/Problems: Please see H&P and Hospital Progress note Consultations: GI, ORTHOPEDIC PHYSICIAN ASSISTANT, PT/OT Medication Reconciliation New Medications: Amoxicillin & Pot Clavulanate (Amoxicillin/Clavulanate P) 1 Tab Tab 875 MG PO BIDM for 5 Days, #10 TAB Continued Medications: Aspirin (Aspirin EC Low Dose) 81 Mg Ectab 81 MG PO DAILY Ferrous Sulfate (Kp Ferrous Sulfate) 325 Mg Tab 1 TAB PO DAILY Fluocinolone Acetonide (Fluocinolone Acetonide) Unknown Strength Cre 1 APPLN TOP BID PRN for rash Fluticasone Propionate (Nasal) (Flonase Allergy Relief) 50 Mcg/Act Spr 2 SPRAYS FELIPE QAM Furosemide (Lasix) 20 Mg Tab 40 MG PO QAM Lactulose (Constulose) 10 Gm/15 Ml Chanelle 30 ML PO TID PRN for Constipation Latanoprost (Xalatan 0.005% Oph Chanelle) 0.005 % Chanelle 1 DROP OPB BID Levothyroxine Sodium (Synthroid) 75 Mcg Tab 75 MCG PO QAM Lidocaine Hcl (Mouth-Throat) (Lidocaine Hcl) 2 % Chanelle 2 TBS PO UD COAT MOUTH ULCERS Lisinopril (Prinivil) 10 Mg Tab 1 TAB PO BID for 90 Days, #180 TAB 1 Refill Loratadine (Claritin) 10 Mg Tab 10 MG PO HS Magic Swizzle (Magic Swizzle - SUCRALFA/ALUM/MAG/DIPHEN/LIDO) 240 Ml Susp 3-4 TSP PO Q4-6H PRN for MOUTH ULCERS 100ml Sucralfate 50ml Maalox 50ml Diphenhydramine 40ml 2% Aq. Lidocaine Swish and Swallow Magnesium Oxide (Magnesium Oxide) 400 Mg Cap 1 CAP PO BID for 90 Days, #180 CAP 3 Refills Meclizine Hcl (Meclizine Hcl) 25 Mg Tab 1 TAB PO TID PRN for Dizziness or Vertigo Multiple Vitamins W/ Minerals (Centrum Silver) 1 Chw Chw 1 TAB PO QAM Nystatin (Nystatin Suspension) 1 Ml Susp 5 ML PO QID PRN for THRUSH Nystatin (Topical) (Nystatin) 1 Pow Pow 1 APPL TOP TID PRN for RASH Nystatin/Triamcinolone (Mycolog ||) Cr 1 APPL TOP BID Oxycodone HCl (Oxycodone HCl ER) 30 Mg Tab 30 MG PO Q12 for 5 Days, #10 (This prescription has been renewed) Pantoprazole (Protonix) 40 Mg Tab 40 MG PO DAILY, #30 TAB Polyethylene Glycol 3350 (Miralax) 1 Pow Pow 17 GM PO DAILY PRN for Constipation Potassium Chloride Microencaps (Potassium Chloride Er) 20 Meq Tab 1 TAB PO DAILY for 30 Days, #30 TAB 5 Refills Prednisone (Prednisone) 5 Mg Tab 5 MG PO DAILY, TAB Riboflavin (Riboflavin) 100 Mg Cap 100 MG PO DAILY Sennosides-Docusate Sodium (Stool Softener) 1 Tab Tab 1 TAB PO BID Simethicone (Gas Relief) 80 Mg Chw 1 TAB PO QID PRN for prn Simvastatin (Zocor) 20 Mg Tab 20 MG PO HS Venlafaxine Hcl (Effexor Extended Rel) 150 Mg Cap 150 MG PO DAILY, CAP Vitamin E (E-400) 400 Unit Cap 1 TAB PO QAM Discontinued Medications: Ranitidine (Zantac) 150 Mg Tab 150 MG PO HS, TAB Admission Information HPI (per Admitting provider): 76 year old female who presents to the ER with altered mental status and persistent vomiting. Patient was recently admitted to [facility] 03/11 - 03/12 for persistent vomiting, E. Coli UTI, and hyponatremia. Patient underwent EGD that showed a tortuous esophagus and large hiatal hernia. Esophageal dilation was preformed. She received Ceftriaxone for the UTI and was discharged home on Cefuroxime to complete the course. Hyponatremia responded well to IVF. Patient' s daughter is at the bedside and reports that she has been doing well up until 6 days ago. She has has persistent vomiting and has been unable to keep anything down. She has not been able to take her pills. She describes emesis as green and bilious in nature. She denies hematemesis or coffee ground emesis. No abdominal pain or diarrhea. Patient has generalized weakness that has progressively gotten worse. Daughter reports she typically can ambulate with a walker however has been bed bound for the past couple of days. No chest pain or shortness of breath. Denies fever and chills. No urinary symptoms but developed bladder pain today. In the ER, patient's U/A suggests possible UTI. Labs show a mild hypokalemia, hypophosphatemia, and hyponatremia. She was given IVF and IV Levaquin. Past Medical/Surgical History Medical Problems: (1) CKD (chronic kidney disease), stage III Status: Chronic (2) Depression Status: Chronic (3) Diabetes mellitus type 2, diet-controlled Status: Chronic (4) Diabetic neuropathy Status: Chronic (5) Dyslipidemia Status: Chronic (6) Gastric ulcer Status: Chronic (7) HTN (hypertension) Status: Chronic (8) Hypothyroid Status: Chronic (9) KENIA (iron deficiency anemia) Status: Chronic (10) Osteoarthritis Status: Chronic (11) Rectal prolapse Permanent Comment: s/p repair Status: Chronic (12) Rectocele Permanent Comment: s/p repair Status: Chronic Surgical Problems: (1) H/O shoulder surgery Status: Chronic (2) H/O umbilical hernia repair Status: Chronic Family History Diabetes mellitus FATHER SISTER FH: CAD (coronary artery disease) MOTHER Stroke BROTHER Social History Smoking Status: Never Smoker Alcohol Use: none Immunizations History of Influenza Vaccine: Yes Influenza Vaccine Date: Apr 29, 2016 History of Tetanus Vaccine?: Yes Tetanus Immunization Date: Feb 29, 2008 History of Pneumococcal: Yes Pneumococcal Date: Apr 29, 2016 Multi-Drug Resistant Organisms History of MDRO: No Allergies Coded Allergies: Gabapentin (Verified Allergy, Severe, MOUTH SWELLS, 04/08/17) Pregabalin (Verified Allergy, Severe, MOUTH SWELLS, 04/08/17) Home Medications Scheduled Aspirin (Aspirin EC Low Dose), 81 MG PO DAILY Ferrous Sulfate (Kp Ferrous Sulfate), 1 TAB PO DAILY Fluticasone Propionate (Nasal) (Flonase Allergy Relief), 2 SPRAYS FELIPE QAM Latanoprost (Xalatan 0.005% Oph Chanelle), 1 DROP OPB BID Levothyroxine Sodium (Synthroid), 75 MCG PO QAM Lidocaine Hcl (Mouth-Throat) (Lidocaine Hcl), 2 TBS PO UD Lisinopril (Prinivil), 1 TAB PO BID Loratadine (Claritin), 10 MG PO HS Magnesium Oxide (Magnesium Oxide), 1 CAP PO BID Multiple Vitamins W/ Minerals (Centrum Silver), 1 TAB PO QAM Nystatin/Triamcinolone (Mycolog ||), 1 APPL TOP BID Oxycodone HCl (Oxycodone HCl ER), 30 MG PO Q12 Pantoprazole (Protonix), 40 MG PO DAILY Potassium Chloride Microencaps (Potassium Chloride Er), 1 TAB PO DAILY Prednisone (Prednisone), 5 MG PO DAILY Ranitidine (Zantac), 150 MG PO HS Riboflavin (Riboflavin), 100 MG PO DAILY Sennosides-Docusate Sodium (Stool Softener), 1 TAB PO BID Simvastatin (Zocor), 20 MG PO HS Venlafaxine Hcl (Effexor Extended Rel), 150 MG PO DAILY Vitamin E (E-400), 1 TAB PO QAM Scheduled PRN Fluocinolone Acetonide (Fluocinolone Acetonide), 1 APPLN TOP BID PRN for rash Furosemide (Lasix), 20 MG PO QAM PRN for FLUID RET Lactulose (Constulose), 30 ML PO TID PRN for Constipation Magic Swizzle (Magic Swizzle - SUCRALFA/ALUM/MAG/DIPHEN/LIDO), 3-4 TSP PO Q4-6H PRN for MOUTH ULCERS Meclizine Hcl (Meclizine Hcl), 1 TAB PO TID PRN for Dizziness or Vertigo Nystatin (Nystatin Suspension), 5 ML PO QID PRN for THRUSH Nystatin (Topical) (Nystatin), 1 APPL TOP TID PRN for RASH Polyethylene Glycol 3350 (Miralax), 17 GM PO DAILY PRN for Constipation Simethicone (Gas Relief), 1 TAB PO QID PRN for prn Review of Systems ROS per HPI, all other systems reviewed and negative Physical Ex - H&P Physical Exam Vital Signs Date Time Temp Pulse Resp B/P (MAP) Pulse Ox O2 Delivery O2 Flow Rate FiO2 04/08/17 16:52 132 16 112/83 95 Room Air 04/08/17 15:07 36.6 99 18 91/60 93 Room Air 04/08/17 13:56 89 20 117/75 94 Room Air 04/08/17 13:28 96 Room Air 04/08/17 13:21 90 04/08/17 12:55 35.7 80 22 144/91 95 Room Air General Appearance: no apparent distress Head: normocephalic, atraumatic Eyes: normal inspection, sclerae normal ENT: hearing grossly normal Neck: supple, no JVD Respiratory/Chest: lungs clear, normal breath sounds, no respiratory distress Cardiovascular: regular rate, rhythm, no edema, normal peripheral pulses Abdomen/GI: normal bowel sounds, non tender, soft Extremities/Musculoskelatal: normal inspection, no calf tenderness Neurologic/Psych: alert, normal mood/affect, oriented x 3, + pertinent finding (patient generally weak, no gorss focal deficits noted) Skin: normal color, warm/dry Diagnostics - H&P Diagnostics Laboratory Results Results Past 24 Hours Test 04/08/17 13:00 04/08/17 13:21 04/08/17 13:25 04/08/17 14:35 Range/Units Urine Color YELLOW Urine Appearance CLEAR CLEAR Urine pH 7.0 4.5-7.5 Urine Specific [place] 1.014 1.000-1.030 Urine Protein NEG NEG Urine Glucose (UA) 2+ NEG Urine Ketones 1+ NEG Urine Occult Blood 1+ NEG Urine Nitrite NEG NEG Urine Bilirubin NEG NEG Urine Urobilinogen NEG NEG Urine Leukocyte Esterase LARGE NEG Urine WBC (Auto) >30 0-5 /hpf Urine RBC (Auto) 0-4 0-4 /hpf Urine Hyaline Casts (Auto) 1-5 0-5 /lpf Urine Epithelial Cells (Auto) >30 0-5 /lpf Urine Bacteria (Auto) NEG NEG Urine Renal Epithelial Cells 5-10 0-5 /lpf Bedside Glucose 142 70-90 mg/dl Urine Opiates Screen NEG NEG Urine Methadone, Qualitative NEG NEG Urine Barbiturates NEG NEG Urine Phencyclidine (PCP) Level NEG NEG Ur Amphetamine/Methamphetamine NEG NEG MDMA (Ecstasy) Screen NEG NEG Urine Benzodiazepines Screen NEG NEG Urine Cocaine Metabolite NEG NEG Urine Marijuana (THC) NEG NEG Bedside Lactic Acid Venous 1.41 0.90-1.70 mmol/L White Blood Count 8.72 4.8-10.8 K/uL Red Blood Count 5.23 4.2-5.4 M/uL Hemoglobin 15.3 12.0-16.0 g/dL Hematocrit 46.4 37-47 % Mean Corpuscular Volume 88.7 80-100 fL Mean Corpuscular Hemoglobin 29.3 25-34 pg Mean Corpuscular Hemoglobin Concent 33.0 32-36 g/dl Platelet Count 179 130-400 K/uL Mean Platelet Volume 10.0 7.4-10.4 fL Neutrophils (%) (Auto) 82.3 % Lymphocytes (%) (Auto) 9.5 % Monocytes (%) (Auto) 5.7 % Eosinophils (%) (Auto) 1.7 % Basophils (%) (Auto) 0.1 % Neutrophils # (Auto) 7.17 1.4-6.5 K/uL Lymphocytes # (Auto) 0.83 1.2-3.4 K/uL Monocytes # (Auto) 0.50 0.11-0.59 K/uL Eosinophils # (Auto) 0.15 0-0.5 K/uL Basophils # (Auto) 0.01 0-0.2 K/uL RDW Standard Deviation 44.6 36.4-46.3 fL RDW Coefficient of Variation 13.7 11.5-14.5 % Immature Granulocyte % (Auto) 0.7 % Immature Granulocyte # (Auto) 0.06 0.00-0.02 K/uL Erythrocyte Sedimentation Rate 9 0-21 mm/hr Prothrombin Time 11.2 9.0-12.0 SECONDS Prothromb Time International Ratio 1.0 0.9-1.1 Activated Partial Thromboplast Time 27.4 21.0-31.0 SECONDS Partial Thromboplastin Ratio 1.1 Sodium Level 132 136-145 mmol/L Potassium Level 3.1 3.5-5.1 mmol/L Chloride Level 91 98-107 mmol/L Carbon Dioxide Level 29 21-32 mmol/L Anion Gap 12.0 3-11 mmol/L Blood Urea Nitrogen 26 7-18 mg/dl Creatinine 1.20 0.60-1.20 mg/dl Est Creatinine Clear Calc Drug Dose 38.5 ml/min Estimated GFR () 51.6 Estimated GFR (Non- 44.5 BUN/Creatinine Ratio 21.3 10-20 Random Glucose 158 70-99 mg/dl Calcium Level 8.0 8.5-10.1 mg/dl Phosphorus Level 2.2 2.5-4.9 mg/dl Magnesium Level 1.8 1.8-2.4 mg/dl Total Bilirubin 1.0 0.2-1 mg/dl Aspartate Amino Transf (AST/SGOT) 27 15-37 U/L Alanine Aminotransferase (ALT/SGPT) 15 12-78 U/L Alkaline Phosphatase 71 45-117 U/L Ammonia < 10.0 11-32 umol/L Total Creatine Kinase 48 26-192 U/L Creatine Kinase MB 3.9 0.5-3.6 ng/ml Creatine Kinase MB Ratio 8.1 0-3.0 Troponin I 0.039 0-0.045 ng/ml C-Reactive Protein 1.24 0-0.29 mg/dl Pro-B-Type Natriuretic Peptide 1471 0-900 pg/ml Total Protein 5.5 6.4-8.2 gm/dl Albumin 2.4 3.4-5.0 gm/dl Globulin 3.1 2.5-4.0 gm/dl Albumin/Globulin Ratio 0.8 0.9-2 Lipase 343 73-393 U/L Thyroid Stimulating Hormone (TSH) 0.369 0.300-4.500 uIu/ml Free Thyroxine 1.62 0.80-1.60 ng/dl Venous Blood pH 7.42 7.36-7.41 Venous Blood Partial Pressure CO2 48 38.0-50.0 mmHg Venous Blood Partial Pressure O2 29 mmHg Venous Blood HCO3 30 mmol/L Venous Blood Oxygen Saturation < 60.0 % Venous Blood Base Excess 5.0 mEq/L Microbiology Results 04/08/17 Blood Culture, Received Pending 04/08/17 Blood Culture, Received Pending 04/08/17 Urine Culture, Received Pending Diagnostic Radiology HEAD CT IMPRESSION: 1. No acute intracranial abnormality. 2. Chronic age-related findings of atrophy, chronic microvascular ischemic changes and remote lacunar infarctions. CXR IMPRESSION: No acute cardiopulmonary process. CT ABD/PELVIS IMPRESSION: 1. Suboptimal examination without oral and IV contrast. The examination is also degraded by streak and motion artifact. 2. No acute infectious or inflammatory findings are identified in the abdomen or pelvis. 3. There is moderate diverticulosis of left colon without CT evidence of acute diverticulitis. 4. Cholelithiasis. 5. Hiatal hernia. Impression - H&P Impression Assessment and Plan INTRACTABLE VOMITING - admit to med/surg - patient presenting with persistent vomiting and inability to tolerate PO x 6 days; had recent admission to [facility] 03/11 - 03/12 for similar symptoms and underwent EGD that showed tortuous esophagus and hiatal hernia (both of which were felt to be contributing to patient's symptoms); s/p esophageal dilation; noted negative biopsies - suspect today's presenting symptoms are due to the above; during my time with the patient she stated multiple times that she does not want any further tests or procedures - it was discussed with the daughter that if the patient does not want any interventions that palliative care may be an option - for now will give clear liquid diet and have GI evaluate the patient tomorrow for further recommendations POSSIBLE UTI - during recent admission patient's culture grew a pansensitive E. Coli - treated with IV ceftriaxone and d/c'd on PO cefuroxime to complete course - U/A abnormal today - s/p IV Levaquin in the ED, will continue with IV ceftriaxone tomorrow - adjust per culture results HYPONATREMIA, HYPOPHOSPHATEMIA, HYPOKALEMIA - mild, due to GI loss with persistent vomiting - gentle IVF, replace electrolytes, follow up labs in the AM HTN - BP controlled, continue lisinopril HX TIA - Plavix recently d/c'd and started on Aspirin by PCP due to reports of "coffee ground" emesis - no further coffee ground emesis, hgb stable - continue ASA DM, DIET CONTROLLED - hgb a1c 5.9 01/2017 - check BSGs ACHS CKD STAGE III - baseline creat runs in the mid 1's - creat noted to be 1.2 today - continue to monitor, avoid nephrotoxic agents when able OSTEOARTHRITIS, CHRONIC BACK PAIN - continue chronic prednisone and OxyContin (morphine ordered for break through if patient unable to tolerate PO) DVT PROPHYLAXIS - SQ Heparin CODE STATUS - Patient is a full code without mechanical ventilation as per my discussion with the patient and her daughter who is at the bedside. DISPO - In my clinical judgment this beneficiary meets acute admission criteria, established by [facility], that includes being hospitalized through two midnights. - Case management, PT/OT - noted that [place] will be [place] [place] Attending addendum: Agree with the above H&P; please refer to above for more details. Patient is a 76 yo female who was brought to the hospital by her daughter for complaints of vomiting, early satiety, and generalized weakness. She has not been able to eat or drink since Thursday per the daughter. The patient states she is miserable and is tired of coming back to the hospital and just wants to go home and does not want any invasive treatments. She is agreeable to talking with Palliative care but her daughter is not. The patient reports feeling full, N/V, weak and tired. I had a very long conversation with the patient and her daughter regarding goals of care, options for treatments and care. Cardiac: RR, S1 and S2 auscultated Respiratory: diminished breath sounds, otherwise clear, no wheezes/rales/rhonchi GI: soft, ND, + BS; subjective tenderness diffusely, no hepatosplenomegaly Recurrent Vomiting: -patient has hx of tortuous esophagus s/p dilation, and large hiatal hernia -also appears to have a UTI; continue empiric abx until urine culture returns -GI consulted -PRN anti-emetics -clear liquid diet, advance as tolerated -electrolyte derangements likely related to this and poor PO intake -hydrate with IV fluids VTE Prophylaxis VTE Risk Assessment Done? Y/N: Yes Risk Level: Moderate Physical Exam (per Admitting): General Appearance: no apparent distress Head: normocephalic, atraumatic Eyes: normal inspection, sclerae normal ENT: hearing grossly normal Neck: supple, no JVD Respiratory/Chest: lungs clear, normal breath sounds, no respiratory distress Cardiovascular: regular rate, rhythm, no edema, normal peripheral pulses Abdomen/GI: normal bowel sounds, non tender, soft Extremities/Musculoskelatal: normal inspection, no calf tenderness Neurologic/Psych: alert, normal mood/affect, oriented x 3, + pertinent finding (patient generally weak, no gorss focal deficits noted) Skin: normal color, warm/dry Hospital Course 76 yo F with worsening dysphagia and intolerance to PO Bilateral Legs Cellulitis Bilateral Legs swelling-edema present, poss venous stasis Started on IV Unasyn TEDs ordered and home Lasix restarted, improved Will change to Oral Augmentin for 10 days in total Urinary Incontinence Likely to improve No medication advised Reassured -may need to see MD [facility]ER[facility] IMMUNOLOGY Dysphagia/vomiting -tortuous esophagus and possible superimposed dysmotility in setting of hiatal hernia. She has been tolerating mechanical soft moist diet Appreciate Speech therapy recommendation GI following. NO more dilatation for now Tolerating oral diet as per recommendation Bacteriuria-gave some Pyridium for "pressure" in setting of chronic incontinence in poor historian. Recent treatment of UTI and repeat UCx reveals 50K CFU so not treated initially. Has been on Cipro Since legs are getting worse-will change to Unasyn and transition to Augmentin No more Dysuria HTN-cont lisinopril BID h/o TIA-cont ASA DMII-diet controlled. She has been hypoglycemic on occasion with poor PO intake. CKD Stg III-at baseline. Chronic back pain and generalized OA-cont OxyContin BID; off chronic prednisone. Thrush-started Nystatin QID x 10 days Rash-under breasts and in axillae bilaterally-daughter applying cream with menthol in it but I'm concerned about inflammation with this. Appreciate going with wound care nurse recs instead of the zinc oxide cream provided. DVT PROPHYLAXIS Heparin SQ FULL CODE DISPOSITION PT recommends rehab; OK to go when she is medically stable and tolerating enough PO to support her nutritional needs. Discussed with the Daughter in detailed Changed her mind to go to rehab again Likely to be discharged today Total time spent on discharge = 35 minutes This includes examination of the patient, discharge planning, medication reconciliation, and communication with other providers. Discharge Instructions Date of Service Apr 16, 2017. Admission Reason for Admission: Nausea And Vomiting Discharge Discharge Diagnosis / Problem: Esophageal Dysmotility,Bilateral Legs swelling Discharge Goals Goal(s): Prevent Disease Progression Activity Recommendations Activity Level: Assistance Required Therapies: Physical Therapy, Occupational Therapy . Additional Information Patient informed of condition: Yes Advance Directives: No DNR: No (Full Code without Mechanical ventilation) Level of Care: Skilled Communicable Disease: No Prognosis: Stable Oxygen at (LPM): 2 liters/min via NC PRN Galeana Catheter: No Instructions / Follow-Up Instructions / Follow-Up As per [facility] provider Current Hospital Diet Patient's current hospital diet: Diabetes Type 2 Diet, Low Sodium Diet (2gm Na) Discharge Diet Recommended Diet: Low Sodium Diet (2gm Na), Diabetes Type 2 Diet Fluid Restriction: 1500 ml (6 cups) Pending Studies Studies pending at discharge: no Physician Orders On Transfer POLST Discussion: Not Applicable Medical Emergencies . Who to Call and When: Medical Emergencies: If at any time you feel your situation is an emergency, please call 911 immediately. . Non-Emergent Contact Non-Emergency issues call your: Primary Care Provider . Past History Medical & Surgical History: (1) Depression (2) Hypothyroid (3) Diabetes mellitus type 2, diet-controlled (4) HTN (hypertension) (5) KENIA (iron deficiency anemia) (6) Rectal prolapse (7) Gastric ulcer (8) H/O shoulder surgery (9) H/O umbilical hernia repair (10) CKD (chronic kidney disease), stage III . "Provider Documentation" section prepared by Eldon Khan. . Core Measure Problem Core Measures: None <Electronically signed by Eldon Khan M.D.> Additional Copies To Markell Kline M.D.
== END 2017-04-16 19:43 | DRG 690 ==
LOC: EDBD 12:51 → C.EDA 12:52 → C.MS4W 16:29 → ENRESERV 16:55 → CANRESERV 16:55 → ENRESERV 17:29
PROVIDERS: ADMIT Internal Medicine; ATTEND Internal Medicine
DX: N39.0 Urinary tract infection, site not specified (principal); E87.1 Hypo-osmolality and hyponatremia; L03.115 Cellulitis of right lower limb; L03.116 Cellulitis of left lower limb; R11.10 Vomiting, unspecified; Z83.3 Family history of diabetes mellitus; Z82.49 Family history of ischemic heart disease and other diseases of the circulatory system; Z82.3 Family history of stroke; T68.XXXA Hypothermia, initial encounter; N18.3 Chronic kidney disease, stage 3 (moderate); I12.9 Hypertensive chronic kidney disease with stage 1 through stage 4 chronic kidney disease, or unspecified chronic kidney disease; E83.39 Other disorders of phosphorus metabolism; E87.6 Hypokalemia; R32 Unspecified urinary incontinence; E11.649 Type 2 diabetes mellitus with hypoglycemia without coma; E87.8 Other disorders of electrolyte and fluid balance, not elsewhere classified; Z86.73 Personal history of transient ischemic attack (TIA), and cerebral infarction without residual deficits; M15.9 Polyosteoarthritis, unspecified

== ENCOUNTER → 2017-05-05 | Outpatient (CLI) | payer OTHER ==
[~2017-05-05] MED LIST changes: -ACET-1256 PO; +AMOX1TAB43 PO; -ANT25 PO; +ASPEC81 PO; -CEFU1TAB33 PO; -CLC100 PO; +FERR1TAB13 PO; -FRRS300 PO; +LACT15SO PO; -LCTL30 PO; -LISI-461 PO; +LISI10TA PO; +MAGN400C2 PO; -MAGN400C3 PO; +MECL1TAB42 PO; -MULT-513 PO; +MULTCHW PO; +NYSS/ PO; +PANT1TAB48 PO; -PLV75 PO; +POTA20TA13 PO; -POTA20TA16 PO; -PRT40 PO; +RIBO100C PO; -RIBO100T2 PO; +SIME1CHW17 PO; -SIME80CH PO; -SNK PO; -ZNT150 PO
[2017-05-05 17:43] LABS: BASO % 0.3 %; BASO ABS # 0.02 K/uL (0-0.2); COMPLETE YES; EOS % 2.3 %; IG% 0.7 %; LYMPH % 14.5 %; LYMPH ABS # 1.02 K/uL (1.2-3.4); MEAN CELL VOLUME 89.7 fL (80-100); MEAN CORPUSCULAR HGB CONC 33.5 g/dl (32-36); MEAN PLATELET VOLUME 10.2 fL (7.4-10.4); MONO % 4.4 %; NEUT % 77.8 %; PLATELET COUNT 198 K/uL (130-400); RED BLOOD COUNT 4.46 M/uL (4.2-5.4); WHITE BLOOD COUNT 7.05 K/uL (4.8-10.8)
[2017-05-05 17:55] LABS: BLOOD UREA NITROGEN 23 mg/dl (7-18); GLUCOSE 116 mg/dl (70-99)
[2017-05-05 17:56] LABS: BUN/CREATININE RATIO 21.3 (10-20); CALCIUM 8.6 mg/dl (8.5-10.1); CARBON DIOXIDE 29 mmol/L (21-32); CHLORIDE 99 mmol/L (98-107); POTASSIUM 3.7 mmol/L (3.5-5.1); SODIUM 135 mmol/L (136-145)
== END | disposition home or self-care (01) ==
LOC: C.LABPBG 14:37
PROVIDERS: ATTEND Family Medicine
DX: R53.1 Weakness (principal)

== ENCOUNTER → 2017-05-06 | Outpatient (CLI) | payer OTHER ==
[2017-05-06 17:47] LABS: URINE APPEARANCE CLEAR (CLEAR); URINE BILIRUBIN NEG (NEG); URINE COLOR YELLOW; URINE NITRITE NEG (NEG); URINE PH 6.5 (4.5-7.5); URINE SPECIFIC GRAVITY 1.015 (1.000-1.030); UROBILINOGEN NEG (NEG)
[2017-05-06 17:57] LABS: MANUAL MICROSCOPIC REQUIRED? NO; REVIEW REQ? NO
== END ==
LOC: C.LABSPEC 11:33
PROVIDERS: ATTEND Family Medicine
DX: R53.1 Weakness (principal)

== ENCOUNTER → 2017-07-03 | Outpatient (CLI) | payer OTHER ==
[2017-07-03 17:14] LABS: BASO % 0.3 %; BASO ABS # 0.03 K/uL (0-0.2); COMPLETE YES; EOS % 3.8 %; HEMATOCRIT 42.8 % (37-47); IG% 0.5 %; LYMPH % 10.6 %; LYMPH ABS # 1.18 K/uL (1.2-3.4); MEAN CELL VOLUME 99.3 fL (80-100); MEAN CORPUSCULAR HEMOGLOBIN 31.8 pg (25-34); MEAN PLATELET VOLUME 10.5 fL (7.4-10.4); MONO % 4.9 %; NEUT % 79.9 %; PLATELET COUNT 208 K/uL (130-400); RED BLOOD COUNT 4.31 M/uL (4.2-5.4); WHITE BLOOD COUNT 11.12 K/uL (4.8-10.8)
[2017-07-03 17:21] LABS: BLOOD UREA NITROGEN 33 mg/dl (7-18); BUN/CREATININE RATIO 36.4 (10-20); CALCIUM 8.9 mg/dl (8.5-10.1); CARBON DIOXIDE 27 mmol/L (21-32); CHLORIDE 104 mmol/L (98-107); GLUCOSE 147 mg/dl (70-99); POTASSIUM 4.1 mmol/L (3.5-5.1); SODIUM 138 mmol/L (136-145)
[2017-07-03 17:31] LABS: THYROID STIMULATING HORMONE 0.148 uIu/ml (0.300-4.500)
== END | disposition home or self-care (01) ==
LOC: C.LABPBG 14:30
PROVIDERS: ATTEND Family Medicine
DX: R53.83 Other fatigue (principal)

== ENCOUNTER 2018-10-15 15:14 | Inpatient (IN) ==
--- NOTE | 2018-10-15 16:09 | XRay Report ---
SINGLE VIEW PELVIS; 2 VIEWS RIGHT HIP CLINICAL HISTORY: Fall with right hip pain. FINDINGS: An AP view of the pelvis with AP and crosstable lateral views of the right femur are correl ated with pelvic radiograph dated 07/30/[address] dated 04/08/2017. The skeletal structures ar e heterogeneously osteopenic. There is no radiographic evidence of acute fracture involving the left hip or the bony pelvis. There is an incomplete lucency through the greater trochanter of the right fe mur such that a nondistracted fracture is not excluded. This was not seen on the 2011 examination. Ad vanced arthritic change is present in both hips, with severe joint space narrowing and bony overgrowt h. Sclerotic degenerative change is noted in the sacroiliac joints. Lumbosacral spondylosis is partia lly imaged. Soft tissue contusion is suggested overlying the right hip. There is atherosclerotic calc ification of the right femoral artery. No bowel obstruction is seen. Pelvic phlebolith are observed. A mesenteric calcification in the left abdomen is unchanged. IMPRESSION: 1. There is an incomplete lucency through the greater trochanter of the right femur such that nondist racted fracture is not excluded. Consider CT of the hip for further assessment. 2. No fracture is identified involving the left hip or the bony pelvis. 3. Osteopenia and advanced degenerative change as above. Electronically signed by: Sumit Guerrero M.D. 10/15/2018 4:08 PM
--- NOTE | 2018-10-15 16:11 | XRay Report ---
XR tibia fibula RT 2V CLINICAL HISTORY: Pain status post trauma COMPARISON: None. DISCUSSION: There are postsurgical changes of a total right knee arthroplasty. No acute fractures or dislocations are visualized. Note is made of vascular calcification. Degenerative changes are present the level the ankle. IMPRESSION: Postsurgical change. No acute fractures or dislocations identified. Electronically signed by: Mikal Jasso M.D. 10/15/2018 4:10 PM
--- NOTE | 2018-10-15 16:18 | XRay Report ---
LEFT HAND 3 VIEWS CLINICAL HISTORY: Fall. Left hand pain. FINDINGS: 3 views of the left hand are obtained. No prior studies are available for comparison at the time of dictation. The skeletal structures are osteopenic. No fracture is seen. Degenerative narrowi ng is seen at the radiocarpal articulation. There is chondrocalcinosis of the triangular fibrocartila ge. Advanced osteoarthritic change is present throughout the wrist and hand. There is bony sclerosis, overgrowth, and subluxation at the first carpometacarpal articulation. Erosive osteoarthritis is see n involving the distal interphalangeal joints, greatest in the second, third, and fourth fingers. A r ing is present on the third finger. Mild soft tissue edema is noted throughout the fingers. There is atherosclerotic calcification of the regional arteries. IMPRESSION: 1. There is no radiographic evidence of left hand fracture. 2. Osteopenia and advanced arthritic change as above. Electronically signed by: Sumit Guerrero M.D. 10/15/2018 4:17 PM
--- NOTE | 2018-10-15 16:21 | Emergency Department Note ---
Entered by Luis Talavera acting as a scribe for History of Present Illness General Chief complaint: Fall Stated complaint: FALL, HEMATOMA TO R KNEE, SKIN TEAR L HAND Time Seen by Provider: 10/15/18 15:19 Source: patient Limitations: no limitations History of Present Illness Provider complaint: Fall Onset (ago): hour(s) (6) Location: knee and right Pain Consistency: + constant and + other (Single fall) Quality: + other (fall, knee pain) Associated symptoms: no syncope Treatments prior to arrival: none The patient is a 77 year old female who presents to the Emergency Room via EMS following a falling episode that occurred about 6 hours ago. The patient states that she was attempting to sit on the bed-side commode this morning when she dropped to the ground onto her right hip. The patient states that "everything happened so fast" that she is unsure what happened. She denies hitting her head on the fall or losing consciousness at any time. The patient is currently compla ining of pain to her left hand, right knee, and right hip. She notes a skin tear to the left hand. She is not on any blood thinners. The patient lives at home, but has a software project lead that comes in the mornings. The software project lead was there after the fall to help her off of the ground. The patient confirms that she has felt well over the past couple of days, and felt well before the fall this morning. Home Medications Home Medications Medication Instructions Recorded Confirmed Type aspirin 81 mg PO DAILY 10/15/18 10/15/18 History bupropion HCl 100 mg PO DAILY 10/15/18 10/15/18 History ergocalciferol (vitamin D2) 50,000 unit PO DAILY 10/15/18 10/15/18 History ferrous sulfate 325 mg PO BID 10/15/18 10/15/18 History fluconazole 150 mg PO Q3D 10/15/18 10/15/18 History fluticasone 1 spray INTRANASAL DAILY 10/15/18 10/15/18 History furosemide 20 mg PO QAM PRN 10/15/18 10/15/18 History hydrocodone-acetaminophen 1 tab PO Q6H PRN 10/15/18 10/15/18 History latanoprost 1 drp OPHTHALMIC (EYE) PM 10/15/18 10/15/18 History levothyroxine 50 mcg PO DAILY 10/15/18 10/15/18 History lisinopril 5 mg PO BID 10/15/18 10/15/18 History loratadine 10 mg PO DAILY 10/15/18 10/15/18 History magnesium oxide 400 mg PO BID 10/15/18 10/15/18 History meclizine 25 mg PO TID PRN 10/15/18 10/15/18 History at-qic-mixjl acid-lutein [Centrum 1 tab PO DAILY 10/15/18 10/15/18 History Silver] nystatin-triamcinolone 1 applic TOPICAL BID 10/15/18 10/15/18 History oxybutynin chloride 5 mg PO HS 10/15/18 10/15/18 History oxycodone [OxyContin] 30 mg PO Q12H 10/15/18 10/15/18 History pantoprazole 40 mg PO DAILY 10/15/18 10/15/18 History polyethylene glycol 3350 17 g PO DAILY 10/15/18 10/15/18 History potassium chloride 10 meq PO DAILY 10/15/18 10/15/18 History prednisolone 5 mg PO DAILY 10/15/18 10/15/18 History ranitidine HCl 150 mg PO HS 10/15/18 10/15/18 History riboflavin (vitamin B2) 100 mg PO DAILY 10/15/18 10/15/18 History sennosides [senna] 8.6 mg PO BID 10/15/18 10/15/18 History simvastatin 20 mg PO HS 10/15/18 10/15/18 History venlafaxine 150 mg PO DAILY 10/15/18 10/15/18 History Allergies Allergy/AdvReac Type Severity Reaction Status Date / Time gabapentin Allergy Severe MOUTH Verified 10/15/18 17:09 SWELLS pregabalin Allergy Severe MOUTH Verified 10/15/18 17:09 SWELLJose Carlos Past Med/Surg History Medical History Osteoarthritis (Chronic) Depression (Chronic) Dyslipidemia (Chronic) Hypothyroid (Chronic) CKD (chronic kidney disease), stage III (Chronic) Diabetes mellitus type 2, diet-controlled (Chronic) Diabetic neuropathy (Chronic) HTN (hypertension) (Chronic) KENIA (iron deficiency anemia) (Chronic) Rectal prolapse (Chronic) "s/p repair" Rectocele (Chronic) "s/p repair" Gastric ulcer (Chronic) Surgical History H/O shoulder surgery (Chronic) H/O umbilical hernia repair (Chronic) Family History Father Family history non-contributory Social History Preferred Language: Slovak Marketing Team Lead Required: No Beliefs That Will Affect Care: None Current Living Situation: Spouse Current Living Situation Comment: Caregiver in AM, daughter at home from 899- [phone] Other Information That Helps Us Care for You: Yes (Pt likely will not ring, does not want to be a bother) Feels Safe at Home: Yes Safety Concerns: Feels Safe At This Time Smoking Status: Former smoker Hx Alcohol Use: No Hx Substance Use: No Review of Systems See HPI for pertinent positives & negatives. and A total of 10 systems reviewed and were otherwise negative Physical Exam Vital Signs Vital Signs - 24 hr 10/15/18 15:14 10/15/18 17:05 10/15/18 18:43 Temperature 36.5 C Temperature Source Oral Sepsis Recent Fever Within 48 Hours No Sepsis New/Unexplained Change in Mental Status No Sepsis Action Taken by Nursing No Action Required Pulse Rate 89 Pulse Rate [Finger] 66 90 Respiratory Rate 18 20 20 Respiratory Effort / Characteristics Non-Labored Spontaneous Non-Labored Spontaneous Respiratory Depth Normal Normal Respiratory Pattern Regular Regular Blood Pressure 143/82 H Blood Pressure [Right Arm] 124/81 127/90 Blood Pressure Mean 102 Blood Pressure Mean [Right Arm] 95 102 Blood Pressure Position Lying Blood Pressure Position [Right Arm] Pulse Oximetry 95 94 95 Oxygen Delivery Method Room Air Room Air 10/15/18 20:51 10/15/18 20:55 Temperature 36.3 C L Temperature Source Oral Sepsis Recent Fever Within 48 Hours Sepsis New/Unexplained Change in Mental Status Sepsis Action Taken by Nursing Pulse Rate Pulse Rate [Finger] 85 Respiratory Rate 18 Respiratory Effort / Characteristics Non-Labored Spontaneous Respiratory Depth Normal Respiratory Pattern Regular Blood Pressure Blood Pressure [Right Arm] 126/77 Blood Pressure Mean Blood Pressure Mean [Right Arm] 93 Blood Pressure Position Blood Pressure Position [Right Arm] Lying Pulse Oximetry 96 Oxygen Delivery Method Room Air Room Air GENERAL: Patient is in no acute distress. HEENT: No acute trauma, normocephalic atraumatic, mucous membranes moist, no nasal congestion, no scleral icterus. NECK: No stridor, no adenopathy, no meningismus, trachea is midline. Non-tender C-spine. LUNGS: Clear to auscultation bilaterally, no wheeze, no rhonchi, breath sounds equal. HEART: 2/6 systolic murmur. Regular rate and rhythm. ABDOMEN: Soft, nontender, bowel sounds positive, no hernias, no peritonitis. EXTREMITIES: There is a fairly large skin tear to the dorsum of the left hand. No active bleeding, no erythema or bony deformity. No real pain to move the right hip or right knee. There is a hematoma with skin tear to the proximal right tib/fib. No pedal edema. NEUROLOGIC: Oriented x 3, no acute motor or sensory deficits, no focal weakness. SKIN: No rash, no jaundice, no diaphoresis. Course 1522: Past medical records reviewed. The patient was evaluated in room D1B, and a complete history and physical examination were performed. 1622: I updated the patient at this time. She agrees to CT of the right hip. 1735: I updated the patient on the CT. She is agreeable to inpatient stay. 1755: I reviewed the patient's case with the attending [facility] hospitalist Dr. Funez. He will evaluate the patient for further management. Administered Medications Dextrose/Sodium Chloride (D5w And 1/2nss) 1,000 mls @ 75 mls/hr IV .[id number] [facility] Stop: 11/14/18 20:59 Last Admin: 10/15/18 21:38 Dose: 75 mls/hr Documented by: [id number] Morphine Sulfate (Morphine Sulfate) 2 mg IV Q2H PRN PRN Reason: moderate pain (scale 4-6) Stop: 10/29/18 20:27 Last Admin: 10/15/18 21:32 Dose: 2 mg Documented by: [id number] Oxycodone HCl (Oxycontin) 30 mg PO Q12H [facility] Stop: 10/29/18 20:59 Last Admin: 10/15/18 21:31 Dose: 30 mg Documented by: [id number] Discontinued Medications Acetaminophen (Ofirmev) 1,000 mg in 100 mls @ 400 mls/hr IV NOW STA Stop: 10/15/18 18:38 Last Infusion: 10/15/18 19:05 Dose: 0 mls/hr Documented by: [id number] Admin: 10/15/18 18:43 Dose: 400 mls/hr Documented by: [id number] Dextrose/Sodium Chloride (D5w And 1/2nss) 1,000 mls @ 80 mls/hr IV .[id number] [facility] Stop: 11/14/18 19:14 Last Admin: 10/15/18 21:57 Dose: Not Given Documented by: [id number] Medical Decision Making Differential Diagnosis Differential Diagnosis includes: Hematoma, left hand fracture, right hip fracture, right tib/fib fracture, skin tear, neurovascular compromise. Medical Records Attestation: I reviewed the patient's medical records. Home Medications Current Medication List: was personally reviewed by me Laboratory Data Attestation: I reviewed the patient's lab results. Result diagrams: 10/15/18 18:16 10/15/18 18:16 Lab Results 10/15/18 10/15/18 10/15/18 Range/Units 18:16 18:16 20:40 WBC 14.25 H (4.8-10.8) K/uL RBC 3.87 L (4.2-5.4) M/uL Hgb 12.3 (12.0-16.0) g/dL Hct 36.8 L (37-47) % MCV 95.1 (80-100) fL MCH 31.8 (25-34) pg MCHC 33.4 (32-36) g/dL RDW Std Deviation 48.9 H (36.4-46.3) fL RDW Coeff of Moi 14.0 (11.5-14.5) % Plt Count 162 (130-400) K/uL MPV 10.0 (7.4-10.4) fL Sodium 137 (136-145) mmol/L Potassium 4.1 (3.5-5.1) mmol/L Chloride 101 (98-107) mmol/L Carbon Dioxide 32 (21-32) mmol/L Anion Gap 4.0 (3-11) BUN 24 H (7-18) mg/dl Creatinine 0.83 (0.6-1.2) mg/dl Est Cr Clr Drug Dosing 47.6 ml/min Est GFR ( Amer) 79.9 Est GFR (Non-Af Amer) 69.0 BUN/Creatinine Ratio 29.1 H (10-20) Glucose 132 H (70-99) mg/dl POC Glucose (70-99) Calcium 8.6 (8.5-10.1) mg/dl Blood Type O Negative Antibody Screen NEGATIVE 10/15/18 Range/Units 20:43 WBC (4.8-10.8) K/uL RBC (4.2-5.4) M/uL Hgb (12.0-16.0) g/dL Hct (37-47) % MCV (80-100) fL MCH (25-34) pg MCHC (32-36) g/dL RDW Std Deviation (36.4-46.3) fL RDW Coeff of Moi (11.5-14.5) % Plt Count (130-400) K/uL MPV (7.4-10.4) fL Sodium (136-145) mmol/L Potassium (3.5-5.1) mmol/L Chloride (98-107) mmol/L Carbon Dioxide (21-32) mmol/L Anion Gap (3-11) BUN (7-18) mg/dl Creatinine (0.6-1.2) mg/dl Est Cr Clr Drug Dosing ml/min Est GFR ( Amer) Est GFR (Non-Af Amer) BUN/Creatinine Ratio (10-20) Glucose (70-99) mg/dl POC Glucose 120 H (70-99) Calcium (8.5-10.1) mg/dl Blood Type Antibody Screen Imaging Data Attestation: I personally reviewed and interpreted this imaging study as ar ws: Radiologist's Impression: CT hip RT wo con CT DOSE: 416.97 mGy.cm CLINICAL HISTORY: Pain status post trauma. Abnormal conventional radiographic study. TECHNIQUE: Helical images were acquired in transverse plane. Sagittal and coronal reformatted images were acquired. A dose lowering technique was utilized adhering to the principles of ALARA. COMPARISON STUDY: Conventional radiographic study dated 10/15/2018. FINDINGS: There is soft tissue edema/hemorrhage adjacent to the lateral aspect of the right hip. There are moderately advanced osteoarthritic changes. There is acute comminuted fracture of the greater trochanter. The bones are osteopenic. There is a suspected 3 cm uterine fibroid versus right ovarian lesion. Nonemergent pelvic imaging is recommended in follow-up. IMPRESSION: 1. Acute comminuted fracture involving the greater trochanter of the right hip 2. There is an associated soft tissue hematoma 3. Osteoarthritic changes 4. Osteopenia 5. 3 cm uterine fibroid versus right ovarian lesion. Nonemergent pelvic imaging is recommended in follow-up. Electronically signed by: Mikal Jasso M.D. 10/15/2018 5:11 PM XR tibia fibula RT 2V CLINICAL HISTORY: Pain status post trauma COMPARISON: None. DISCUSSION: There are postsurgical changes of a total right knee arthroplasty. No acute fractures or dislocations are visualized. Note is made of vascular calcification. Degenerative changes are present the level the ankle. IMPRESSION: Postsurgical change. No acute fractures or dislocations identified. Electronically signed by: Mikal Jasso M.D. 10/15/2018 4:10 PM SINGLE VIEW PELVIS; 2 VIEWS RIGHT HIP CLINICAL HISTORY: Fall with right hip pain. FINDINGS: An AP view of the pelvis with AP and crosstable lateral views of the right femur are correlated with pelvic radiograph dated 07/30/[address] dated 04/08/2017. The skeletal structures are heterogeneously osteopenic. There is no radiographic evidence of acute fracture involving the left hip or the bony pelvis. There is an incomplete lucency through the greater trochanter of the right femur such that a nondistracted fracture is not excluded. This was not seen on the 2011 examination. Advanced arthritic change is present in both hips, with severe joint space narrowing and bony overgrowth. Sclerotic degenerative change is noted in the sacroiliac joints. Lumbosacral spondylosis is partially imaged. Soft tissue contusion is suggested overlying the right hip. There is atherosclerotic calcification of the right femoral artery. No bowel obstruction is seen. Pelvic phlebolith are observed. A mesenteric calcification in the left abdomen is unchanged. IMPRESSION: 1. There is an incomplete lucency through the greater trochanter of the right femur such that nondistracted fracture is not excluded. Consider CT of the hip for further assessment. 2. No fracture is identified involving the left hip or the bony pelvis. 3. Osteopenia and advanced degenerative change as above. Electronically signed by: Sumit Guerrero M.D. 10/15/2018 4:08 PM LEFT HAND 3 VIEWS CLINICAL HISTORY: Fall. Left hand pain. FINDINGS: 3 views of the left hand are obtained. No prior studies are available for comparison at the time of dictation. The skeletal structures are osteopenic. No fracture is seen. Degenerative narrowing is seen at the radiocarpal ar ticulation. There is chondrocalcinosis of the triangular fibrocartilage. Advanced osteoarthritic change is present throughout the wrist and hand. There is bony sclerosis, overgrowth, and subluxation at the first carpometacarpal articulation. Erosive osteoarthritis is seen involving the distal interp halangeal joints, greatest in the second, third, and fourth fingers. A ring is present on the third finger. Mild soft tissue edema is noted throughout the fingers. There is atherosclerotic calcification of the regional arteries. IMPRESSION: 1. There is no radiographic evidence of left hand fracture. 2. Osteopenia and advanced arthritic change as above. Electronically signed by: Sumit Guerrero M.D. 10/15/2018 4:17 PM Blood Pressure Blood Pressure Findings: Normal blood pressure MDM Narrative There is a mild leukocytosis, this could be consistent with infection or just the stress of the patient's fall. There was no concerning anemia. No significant electrolyte abnormality or kidney failure. Left hand film does not show any evidence for fracture, right tib-fib film does not show evidence for fracture. Right hip and pelvis films suggested a potential fracture of the greater trochanter. Hip CT confirms a fracture of the greater trochanter. The patient received IV Tylenol for pain, her skin tears were dressed, sutures were not indicated. I do not think the patient can be discharged home, she cannot walk. She will need PT and OT evaluations, she may need rehab, she requires pain control. I doubt she will require hip surgery as this is typically not a surgical fracture. The right leg hematoma will heal with time. I did speak to the patient and case management social worker. The on-call hospitalist was consulted. Impression & Plan Closed right hip fracture, Skin tear of left hand without complication, Hematoma of right lower extremity, Fall Discharge Plan Visit Data *Final* Discharge Date/Time: 10/15/18 19:53 Chief Complaint: Fall Stated Complaint: FALL, HEMATOMA TO R KNEE, SKIN TEAR L HAND ED Provider: Sumit Handley Discharge Problem: Closed right hip fracture, Skin tear of left hand without complication, Hematoma of right lower extremity, Fall Patient Disposition: Admitted As Inpatient Discharge Instructions Interventions: ED Discharge Assessment Last Done: 10/15/18 19:53 Discharge Problem: Closed right hip fracture Qualifiers: Encounter type: initial encounter Qualified Code(s): S72.001A - Fracture of unspecified part of neck of right femur, initial encounter for closed fracture Skin tear of left hand without complication Qualifiers: Encounter type: initial encounter Qualified Code(s): S61.412A - Laceration without foreign body of left hand, initial encounter Hematoma of right lower extremity Qualifiers: Encounter type: initial encounter Qualified Code(s): S80.11XA - Contusion of right lower leg, initial encounter Fall Qualifiers: Encounter type: initial encounter Qualified Code(s): W19.XXXA - Unspecified fall, initial encounter The scribe's documentation has been prepared under my direction and personally reviewed by me in its entirety. I confirm that the note above accurately reflects all work, treatment, procedures, and medical decision making performed by me.
--- NOTE | 2018-10-15 17:13 | CT Scan Report ---
CT hip RT wo con CT DOSE: 416.97 mGy.cm CLINICAL HISTORY: Pain status post trauma. Abnormal conventional radiographic study. TECHNIQUE: Helical images were acquired in transverse plane. Sagittal and coronal reformatted images were acquired. A dose lowering technique was utilized adhering to the principles of ALARA. COMPARISON STUDY: Conventional radiographic study dated 10/15/2018. FINDINGS: There is soft tissue edema/hemorrhage adjacent to the lateral aspect of the right hip. There are mode rately advanced osteoarthritic changes. There is acute comminuted fracture of the greater trochanter. The bones are osteopenic. There is a suspected 3 cm uterine fibroid versus right ovarian lesion. Non emergent pelvic imaging is recommended in follow-up. IMPRESSION: 1. Acute comminuted fracture involving the greater trochanter of the right hip 2. There is an associated soft tissue hematoma 3. Osteoarthritic changes 4. Osteopenia 5. 3 cm uterine fibroid versus right ovarian lesion. Nonemergent pelvic imaging is recommended in fol low-up. Electronically signed by: Mikal Jasso M.D. 10/15/2018 5:11 PM
[2018-10-15] MEDS ORDERED: ACETAMINOPHEN 1,000 MG/100 ML VIAL IV STA (18:24)
[2018-10-15 18:50] LABS: Hematocrit (blood only) 36.8 % (37-47); Hemoglobin 12.3 g/dL (12.0-16.0); Mean Corpuscular Hgb Conc 33.4 g/dL (32-36); Mean Corpuscular Volume 95.1 fL (80-100); Platelet Count 162 K/uL (130-400); RDW Standard Deviation 48.9 fL (36.4-46.3); Red Blood Count 3.87 M/uL (4.2-5.4); White Blood Count 14.25 K/uL (4.8-10.8)
[2018-10-15 19:05] LABS: BUN Creatinine Ratio 29.1 (10-20); Calcium 8.6 mg/dl (8.5-10.1); Creatinine Clr Calc Pharmacy 47.6 ml/min; Est GFR (African American) 79.9; Potassium 4.1 mmol/L (3.5-5.1)
[2018-10-15] MEDS ORDERED: NALOXONE HCL 0.4 MG/1 ML VIAL/CARP IV PRN ×2 (19:08→20:28)
[2018-10-15] MEDS ORDERED: SOD PHOSPHATE/SOD BIPHOSPHATE ENEMA 132 ML BTL PR PRN ×2 (19:08→20:28)
[2018-10-15] MEDS ORDERED: BISACODYL 10 MG SUPP PR PRN ×2 (19:08→20:28)
[2018-10-15] MEDS ORDERED: MoRPHine SULFATE 2 MG/ML CARP IV PRN (19:08)
[2018-10-15] MEDS ORDERED: MAGNESIUM HYDROXIDE SUSP 30 ML UDC PO PRN ×2 (19:08→20:28)
[2018-10-15] MEDS ORDERED: D5W AND 1/2NSS 1,000 ML IV SCH (19:15)
[2018-10-15] MEDS ORDERED: predniSONE 20 MG TAB PO STA (19:45)
--- NOTE | 2018-10-15 20:06 | History & Physical Report ---
Date of Service October 15, 2018 Assessment & Plan (1) Closed right hip fracture: - Following fall at home this morning; CT showed acute comminuted fracture involving greater trochanter of the right hip. - Hip fracture protocol set ordered. - Pain control: home Oxycontin 30 mg q12hr; Oxycodone and Morphine prn breakthrough pain. - NPO after midnight for possible procedure; IV fluids with D5& 0.45% NS at 75 cc/hr. - Activity: strict bedrest. - Orthopedics consulted. - Continue home Prednisone 5 mg daily; will give additional Predisone 20 mg this evening and likely continue stress dose steroids on 10/16/18. (2) Skin tear of left hand without complication: - Wound care consulted for evaluation. (3) Hematoma of right lower extremity: - Pain control as noted above. - Wound care consulted for evaluation. (4) Fall: - Will need PT/OT prior to discharge. - Was likely a mechanical fall; no indication for further work up. (5) Dyslipidemia: - Continue home statin as prescribed; holding aspirin. (6) Hypothyroid: - Continue home Levothyroxine 50 mcg daily. - Most recent TSH was 0.9 in January 2018. (7) HTN (hypertension): - Hold home Lisinopril in pre-op setting. - BP has been well controlled. (8) KENIA (iron deficiency anemia): - Hemoglobin stable in the ED. - Does not take ferrous sulfate at home. (9) Depression: - Continue Effexor as prescribed. (10) Chronic back pain: - Continue home Oxycontin 30 mg q12hr. - Oxycodone and Morphine prn breakthrough pain. - Continue home Prednisone 5 mg daily; will give additional 20 mg PO this evening. (11) GERD (gastroesophageal reflux disease): - Continue home Protonix and Zantac. (12) Glaucoma: - Will need to bring eye drops in from home -- discussed with her daughter. (13) DVT prophylaxis: - Hold for procedure. FEN/GI: Heart healthy diet, NPO after midnight; IVFs at 75 cc/hr. DNR/DNI Dispo: Med/surg for hip fracture, IV pain control, orthopedic consultation. History of Present Illness Chief Complaint: Fall Primary Care Provider: Faustina Mendoza DO Mrs. Gill is a 77 year old female with past medical history of CKD stage III, HTN, HLD, Hypothyroidism, Depression, Chronic back pain who presented following a fall at home. Pt has h/o vertigo ~18 months ago; she was prescribed meclizine prn and has not had any further issues. Pt. states she was standing up this morning from her bed and immediately fell down. She fell to the ground and landed on her right hip/knee and left hand. The patient attempted to stand up but was not able to be weight bearing on the right leg due to pain. She denies hitting her head or LOC during fall; denies dizziness prior to fall or vertigo. Complains of severe right knee pain, rated as a 10/10, and left hand pain at site of open abrasion with skin tear. Denies pain in bilateral hips, left knee. Denies chest pain, SOB, LE edema, nausea/vomiting, diarrhea or constipation, dysuria or hematuria. XR of the Tib/Fib was negative. Hip XR showed incomplete lucency through greater trochanter of the right femur. CT of hip showed acute comminuted fracture of the greater trochanter of the right hip. Pt. will be admitted for orthopedic consult and pain control. Allergies Allergy/AdvReac Type Severity Reaction Status Date / Time gabapentin Allergy Severe MOUTH Verified 10/15/18 17:09 MAGNO pregabalin Allergy Severe MOUTH Verified 10/15/18 17:09 MAGNO Home Medications Home Medications Medication Instructions Recorded Confirmed Type aspirin 81 mg PO DAILY 10/15/18 10/15/18 History bupropion HCl 100 mg PO DAILY 10/15/18 10/15/18 History ergocalciferol (vitamin D2) 50,000 unit PO DAILY 10/15/18 10/15/18 History ferrous sulfate 325 mg PO BID 10/15/18 10/15/18 History fluconazole 150 mg PO Q3D 10/15/18 10/15/18 History fluticasone 1 spray INTRANASAL DAILY 10/15/18 10/15/18 History furosemide 20 mg PO QAM PRN 10/15/18 10/15/18 History hydrocodone-acetaminophen 1 tab PO Q6H PRN 10/15/18 10/15/18 History latanoprost 1 drp OPHTHALMIC (EYE) PM 10/15/18 10/15/18 History levothyroxine 50 mcg PO DAILY 10/15/18 10/15/18 History lisinopril 5 mg PO BID 10/15/18 10/15/18 History loratadine 10 mg PO DAILY 10/15/18 10/15/18 History magnesium oxide 400 mg PO BID 10/15/18 10/15/18 History meclizine 25 mg PO TID PRN 10/15/18 10/15/18 History [id number] acid-lutein [Centrum 1 tab PO DAILY 10/15/18 10/15/18 History Silver] nystatin-triamcinolone 1 applic TOPICAL BID 10/15/18 10/15/18 History oxybutynin chloride 5 mg PO HS 10/15/18 10/15/18 History oxycodone [OxyContin] 30 mg PO Q12H 10/15/18 10/15/18 History pantoprazole 40 mg PO DAILY 10/15/18 10/15/18 History polyethylene glycol 3350 17 g PO DAILY 10/15/18 10/15/18 History potassium chloride 10 meq PO DAILY 10/15/18 10/15/18 History prednisolone 5 mg PO DAILY 10/15/18 10/15/18 History ranitidine HCl 150 mg PO HS 10/15/18 10/15/18 History riboflavin (vitamin B2) 100 mg PO DAILY 10/15/18 10/15/18 History sennosides [senna] 8.6 mg PO BID 10/15/18 10/15/18 History simvastatin 20 mg PO HS 10/15/18 10/15/18 History venlafaxine 150 mg PO DAILY 10/15/18 10/15/18 History Past Med/Surg History Medical History Osteoarthritis (Chronic) Depression (Chronic) Dyslipidemia (Chronic) Hypothyroid (Chronic) CKD (chronic kidney disease), stage III (Chronic) Diabetes mellitus type 2, diet-controlled (Chronic) Diabetic neuropathy (Chronic) HTN (hypertension) (Chronic) KENIA (iron deficiency anemia) (Chronic) Rectal prolapse (Chronic) "s/p repair" Rectocele (Chronic) "s/p repair" Gastric ulcer (Chronic) Surgical History H/O shoulder surgery (Chronic) H/O umbilical hernia repair (Chronic) Family History Father Family history non-contributory Social History Preferred Language: [employer] [employer] Required: No Beliefs That Will Affect Care: None Current Living Situation: Spouse Current Living Situation Comment: Caregiver in AM, daughter at home from 0900-2 000 Other Information That Helps Us Care for You: Yes (Pt likely will not ring, does not want to be a bother) Feels Safe at Home: Yes Safety Concerns: Feels Safe At This Time Smoking Status: Former smoker Hx Alcohol Use: No Hx Substance Use: No Review of Systems All systems reviewed & are unremarkable except as noted in HPI & below Constitutional: + fatigue and + weakness; no fever and no chills Respiratory: no cough, no dyspnea and no dyspnea on exertion Cardiovascular: no chest pain, no palpitations, no lightheadedness, no syncope and no edema Gastrointestinal: no abdominal pain, no nausea, no vomiting, no constipation and no diarrhea/loose stools Genitourinary (Female): no dysuria, no difficulty urinating and no hematuria Musculoskeletal: + back pain (Chronic) and + joint pain (Right knee, left hand ) Integumentary: + new lesions (Left hand, right knee ) Neurologic: no headache(s) Allergy / Immunological: no rash Physical Exam Vital Signs (Past 24 Hours): Last Vital Signs Temp 36.5 C 10/15/18 15:14 Pulse 90 10/15/18 18:43 Resp 20 10/15/18 18:43 BP 127/90 10/15/18 18:43 Pulse Ox 95 10/15/18 18:43 Physical Exam: General: Elderly female, in no acute distress. Accompanied by daughter at bedside. HEENT: NC/AT; PERRLA with EOMI; [place] conjunctiva, MMM. Neck: Supple and nontender Cardiac: RRR Lungs: CTA bilaterally Abdomen: Bowel normoactive X 4; Nontender to palpation Rectal: Deferred : Deferred Back: NO spinous tenderness Extremities: Warm. Large 3-4 cm hematoma on the anterior portion of the proximal right tib/fib. Neuro: No focal weakness Skin: Large skin tear noted on the dorsum of the left hand; skin tear on the atnerior right tib/fib area. Results & Data Laboratory Results 10/15/18 10/15/18 Range/Units 18:16 18:16 WBC 14.25 H (4.8-10.8) K/uL RBC 3.87 L (4.2-5.4) M/uL Hgb 12.3 (12.0-16.0) g/dL Hct 36.8 L (37-47) % MCV 95.1 (80-100) fL MCH 31.8 (25-34) pg MCHC 33.4 (32-36) g/dL RDW Std Deviation 48.9 H (36.4-46.3) fL RDW Coeff of Moi 14.0 (11.5-14.5) % Plt Count 162 (130-400) K/uL MPV 10.0 (7.4-10.4) fL Sodium 137 (136-145) mmol/L Potassium 4.1 (3.5-5.1) mmol/L Chloride 101 (98-107) mmol/L Carbon Dioxide 32 (21-32) mmol/L Anion Gap 4.0 (3-11) BUN 24 H (7-18) mg/dl Creatinine 0.83 (0.6-1.2) mg/dl Est Cr Clr Drug Dosing 47.6 ml/min Est GFR ( Amer) 79.9 Est GFR (Non-Af Amer) 69.0 BUN/Creatinine Ratio 29.1 H (10-20) Glucose 132 H (70-99) mg/dl Calcium 8.6 (8.5-10.1) mg/dl Code Status & VTE Plan Code Status DNR/DNI Supervising Physician Co-Signing Physician Notes Attending attestation and admission note: Patient seen/examined, chart reviewed in detail, and admission care plan discussed with GILDARDO Corley. I agree with the mcgarry components of her admission documentation. 77-year-old female with chronic pain syndrome on chronic narcotics, CKD stage III, and chronic prednisone use also for chronic pain who presented after a fall at her home. She has 3 separate injuries including a hematoma in the right tibia fibular region, a skin tear to the left hand dorsum, as well as a greater trochanteric fracture of the right hip. The patient had no prodromal symptoms prior to the fall. There was no vertigo. She had been feeling fine over the last few days. Past medical, past surgical, allergies, medications, social history, family history,-reviewed Afebrile, vital signs stable General-elderly female in no acute distress HEENT-mucous membranes very dry Skin-3-4 inch hematoma over the proximal right tib-fib region with tenderness to touch; dressings intact to left hand - these were not removed to examine the skin tear Heart-regular rate and rhythm, S1, S2, 1/6 systolic ejection murmur Lungs-clear to auscultation bilaterally Abdomen-soft, nontender, nondistended, bowel sounds present Musculoskeletal-no obvious deformity to the right hip Extremities-trace edema Assessment and plan: 77-year-old female with chronic pain syndrome on daily narcotics and prednisone presenting with mechanical fall leading to right hip greater trochanteric fracture. She also has skin tear to left hand and hematoma to right distal leg. N.p.o. after midnight in the event orthopedics has to do something surgically to the right hip. Small amount of stress dose steroids with oral prednisone. Check UA and urine culture in light of leukocytosis to exclude UTI. Pain control for right hip right tib-fib region and left hand. Wound care consultation for left hand. Agree with gentle hydration. Sundar Funez MD (1) Skin tear of left hand without complication Encounter type: initial encounter Qualified Code(s): S61.412A - Laceration without foreign body of left hand, initial encounter (2) Hematoma of right lower extremity Encounter type: initial encounter Qualified Code(s): S80.11XA - Contusion of right lower leg, initial encounter (3) Fall Encounter type: initial encounter Qualified Code(s): W19.XXXA - Unspecified fall, initial encounter (4) Closed right hip fracture Encounter type: initial encounter Qualified Code(s): S72.001A - Fracture of unspecified part of neck of right femur, initial encounter for closed fracture
[2018-10-15] MEDS ORDERED: DOCUSATE SODIUM/SENNA 50/8.6MG TAB PO SCH (21:00)
[2018-10-15] MEDS: OXYCODONE HCL 15 MG TABCR (OXYCONTIN) PO SCH (21:31)
[2018-10-15] MEDS: MoRPHine SULFATE 2 MG/ML CARP IV PRN (21:32)
[2018-10-15] MEDS: D5W AND 1/2NSS 1,000 ML IV SCH (21:38)
[2018-10-15] MEDS: SIMVASTATIN 20 MG TAB PO SCH (22:25)
[2018-10-16] MEDS ORDERED: ACETAMINOPHEN 325 MG TAB PO PRN
[2018-10-16] MEDS: MoRPHine SULFATE 2 MG/ML CARP IV PRN (00:37)
[2018-10-16] MEDS: OXYCODONE HCL IR 5 MG TAB (IMMEDIATE RELEASE) PO PRN (04:50)
[2018-10-16] MEDS ORDERED: CEFAZOLIN 2000MG 2,000 MG/15 ML SYR IV SCH ×2 (06:00)
[2018-10-16] MEDS: LEVOTHYROXINE SODIUM 50 MCG TABLET PO SCH (06:09)
[2018-10-16 07:23] LABS: Hematocrit (blood only) 31.2 % (37-47); Hemoglobin 10.4 g/dL (12.0-16.0); Mean Corpuscular Hgb Conc 33.3 g/dL (32-36); Mean Corpuscular Volume 95.4 fL (80-100); Mean Platelet Volume 9.9 fL (7.4-10.4); Platelet Count 145 K/uL (130-400); RDW Coefficient of Variation 14.3 % (11.5-14.5); RDW Standard Deviation 49.8 fL (36.4-46.3); Red Blood Count 3.27 M/uL (4.2-5.4); White Blood Count 9.35 K/uL (4.8-10.8)
[2018-10-16] MEDS: OXYCODONE HCL 15 MG TABCR (OXYCONTIN) PO SCH ×2 (07:47→20:41)
[2018-10-16] MEDS: PANTOprazole 40 MG TAB PO SCH (07:47)
[2018-10-16] MEDS: predniSONE 5 MG TAB PO SCH (07:47)
[2018-10-16] MEDS: LORATADINE 10 MG TAB PO SCH (07:48)
[2018-10-16] MEDS: VENLAFAXINE HCL XR 150 MG CAPXR PO SCH (07:48)
[2018-10-16 07:56] LABS: BUN Creatinine Ratio 26.4 (10-20); Calcium 7.9 mg/dl (8.5-10.1); Creatinine Clr Calc Pharmacy 35.8 ml/min; Est GFR (African American) 58.8; Est GFR (Non-African American) 50.7
--- NOTE | 2018-10-16 09:30 | Consultation Report ---
DATE OF CONSULTATION: 10/16/2018 ORTHOPEDIC CONSULTATION CHIEF COMPLAINT: 1. Right hip pain after a fall. 2. Right knee pain after a fall. HISTORY OF PRESENT ILLNESS: The patient is a 77-year-old fairly frail elderly female who was admitted yesterday afternoon status post fall with a right hip fracture. She is 77 years old, lives with her . She has multiple medical comorbidities including hypertension, hypothyroidism, depression and stage III kidney disease and chronic back pain status post bilateral knee replacements done by Dr. Reyez in the past. She has a history of multiple falls in the past. She apparently sustained a mechanical fall yesterday while transferring to a bedside commode. She did have lateral hip pain and had difficulty ambulating afterwards. She normally walks with a walker. She also had a knee contusion. She was admitted after x-rays were done. No other complaints. She describes lateral hip pain. More leg pain and knee pain from the contusion than anything. She does have a history of hip arthritis. PAST MEDICAL HISTORY: 1. Stage III kidney disease. 2. Hypertension. 3. Elevated cholesterol. 4. Hypothyroidism. 5. Depression. 6. Chronic back pain. PREVIOUS SURGERIES: Include: 1. Bilateral knee replacements; these were done by Dr. Reyez. 2. Shoulder surgery. 3. Hernia repair. The remainder of the past medical history is per the admission H and P: PHYSICAL EXAMINATION: GENERAL: Reveals a frail elderly female. She is lying in bed, looks pretty comfortable. EXTREMITIES: Examination of the right hip and leg reveals no obvious deformity or leg length inequality. Her right hip exam is pretty benign. She is tender over the lateral aspect of the hip. She can do a straight leg raise. She has no particular pain with hip motion. With any type of lifting, she does have some lateral hip pain. There is no leg length inequality. No rotational deformity. Examination of the right knee reveals a well-healed knee replacement incision. Does have a fairly large contusion in the subcutaneous tissues in the right knee. Just a small open area. There are no signs of any drainage and no signs of compartment issues. Her compartments are soft. X-RAYS: X-rays of the right hip and pelvis were reviewed. X-rays of the right hip reveal significant hip arthritis. She does have a very osteopenic bone with looks like some fracture of her greater trochanter. They did do a CT scan, which shows a comminuted fracture of her greater trochanter. Does not appear to extend through the intertrochanteric region or into the femoral neck. She does have advanced right hip arthritis. X-rays of the tib-fib were reviewed. It shows the evidence of knee replacement. No signs of fracture. ASSESSMENT: A 77-year-old female with multiple comorbidities, status post a fall with: 1. Right comminuted greater trochanter fracture, but this does not appear to extend into the intertrochanteric region or the femoral neck. This is consistent with her exam and ability to do a straight leg raise, minimal pain with hip motion. 2. Significant right knee and leg contusion without signs of compartment issues. There is something that should resolve on its own. 3. Left hand skin tear. PLAN: We discussed treatment. The hip fracture is not something that requires operative treatment and should do okay with conservative care. She can weight bear as tolerated. It is certainly possible that she could complete the fracture, but this is unlikely without a fall. We will limit hip abduction due to the greater trochanteric fracture. She can weight bear as tolerated. No active hip abduction. We will start her on therapy today. With respect to the hematoma, it just needs a conservative care. There are no signs of compartment or impending compartment issues. As far as medical management, we will leave that up to the medicine service. She should obviously have DVT prophylaxis including TEDs and SCDs and already on aspirin. Any more aggressive anticoagulation is as per the medicine service. We would recommend a baby aspirin twice a day. She can follow up with us in 2-4 weeks' time. Any orthopedic questions can be directed to me at [phone].
[2018-10-16] MEDS: D5W AND 1/2NSS 1,000 ML IV SCH ×2 (11:08→23:43)
[2018-10-16] MEDS: ASPIRIN 81 MG ECTAB PO SCH ×2 (11:48→20:43)
[2018-10-16] MEDS: LISINOPRIL 5 MG TAB PO SCH ×2 (11:48→20:42)
--- NOTE | 2018-10-16 14:47 | Hospitalist Progress Note ---
Date of Service October 16, 2018 Assessment & Plan (1) Closed right hip fracture: - Following fall at home on 10/15; CT showed acute comminuted fracture involving greater trochanter of the right hip. - Pain control: home Oxycontin 30 mg q12hr; Oxycodone and Morphine prn breakthrough pain. - IV fluids with D5& 0.45% NS at 75 cc/hr. - Orthopedics consulted, recommend conservative care with weight bearing as tolerated (no active hip abduction). - DVT ppx: Aspirin 81 mg BID. - F/u with orthopedics in 2-4 weeks post discharge. - PT/OT ordered - will likely require inpatient rehab. (2) Skin tear of left hand without complication: - Wound care consulted for evaluation. - Consider ppx antibiotics if concern for cellulitis. (3) Hematoma of right lower extremity: - Pain control as noted above. - Wound care consulted for evaluation. (4) Fall: - Was likely a mechanical fall; no indication for further work up. - Lives at home with her daughter, has home health aid; will likely need inpatient rehab, PT/OT ordered. (5) Left bundle branch block: - New LBBB noted on EKG. - Echo showed EF 55-60%, mild LVH, focal thickening of the basal septum, grade I diastolic dysfunction. - Consulted cardiology for evaluation. (6) Chronic diastolic heart failure: - Echo showed EF 55-60%, grade I diastolic dysfunction. - Monitor net I/Os and daily weights -- on IV fluids at 75 cc/hr. - Continue home Lisinopril. - Cardiology consulted for evaluation. (7) Aortic stenosis: - Echo showed moderate aortic stenosis. -avoid hypotension (8) Dyslipidemia: - Continue home statin & aspirin. (9) Hypothyroid: - Continue home Levothyroxine 50 mcg daily. - Most recent TSH was 0.9 in January 2018. (10) HTN (hypertension): - Resume home Lisinopril 5 mg BID. - BP has been well controlled. (11) KENIA (iron deficiency anemia): - Hemoglobin decreased since admission, likely related to IV fluids. - Does not take iron supplementation at home. (12) Depression: - Continue Effexor as prescribed. (13) Chronic back pain: - Continue home Oxycontin 30 mg q12hr. - Oxycodone and Morphine prn breakthrough pain. - Continue home Prednisone 5 mg daily; stress dose steroids not indicated. (14) Uterine fibroid: - 3 cm uterine fibroid vs. ovarian lesion on CT pelvis. - Will need follow up imaging as outpatient. (15) GERD (gastroesophageal reflux disease): - Continue home Protonix and Zantac. (16) Glaucoma: - Will need to bring eye drops in from home -- discussed with her daughter. (17) DVT prophylaxis: - Aspirin BID; SCDs and ji hose. FEN/GI: Heart healthy diet; IVFs at 75 cc/hr. DNR/DNI Dispo: Med/surg for hip fracture, pain control and PT/OT evaluation. Supervising Physician Co-Signing Physician Notes PA Supervision Note: I did not personally see or examine the patient today, but I verified all mcgarry points of GILDARDO Grover's assessment and plan with the following exceptions/additions: None Subjective Pt. is doing well overall today. She has mild pain in the right knee and left hand. Complains of pain in the right hip with movement. Denies chest pain or SOB. Has not ambulated out of bed yet -- PT/OT ordered per ortho recs. Daughter is at bedside -- her daughter does not want rehab at discharge. Review of Systems All systems reviewed & are unremarkable except as noted in HPI & below Constitutional: no fever, no chills, no fatigue and no weakness Respiratory: no cough and no dyspnea Cardiovascular: no chest pain, no palpitations, no syncope and no edema Gastrointestinal: + constipation; no abdominal pain and no nausea Genitourinary (Female): no difficulty urinating Musculoskeletal: + joint pain (Right hip, left hand and right knee ) Integumentary: + lesions (on left hand and right knee ) Allergy / Immunological: no rash Physical Exam Vital Signs (Past 24 Hours): Last Vital Signs Temp 36.6 C 10/16/18 11:22 Pulse 88 10/16/18 11:22 Resp 20 10/16/18 11:22 BP 126/63 10/16/18 11:22 Pulse Ox 92 10/16/18 11:22 Physical Exam: General: Elderly female, in no acute distress. HEENT: NC/AT; PERRLA with EOMI; [place] conjunctiva, MMM. Neck: Supple and nontender Cardiac: systolic murmur, 2/6, regular rate and rhythm. Lungs: CTA bilaterally Abdomen: Bowel normoactive X 4; Nontender to palpation Extremities: Warm. Large 3 cm hematoma on the anterior portion of the proximal right tib/fib. Neuro: No focal weakness Skin: Large skin tear noted on the dorsum of the left hand; skin tear on the anterior right tib/fib area. Results & Data Laboratory Results 10/16/18 10/16/18 10/15/18 Range/Units 06:30 06:30 20:43 WBC 9.35 (4.8-10.8) K/uL RBC 3.27 L (4.2-5.4) M/uL Hgb 10.4 L (12.0-16.0) g/dL Hct 31.2 L (37-47) % MCV 95.4 (80-100) fL MCH 31.8 (25-34) pg MCHC 33.3 (32-36) g/dL RDW Std Deviation 49.8 H (36.4-46.3) fL RDW Coeff of Moi 14.3 (11.5-14.5) % Plt Count 145 (130-400) K/uL MPV 9.9 (7.4-10.4) fL Sodium 138 (136-145) mmol/L Potassium 4.0 (3.5-5.1) mmol/L Chloride 101 (98-107) mmol/L Carbon Dioxide 30 (21-32) mmol/L Anion Gap 6.0 (3-11) BUN 28 H (7-18) mg/dl Creatinine 1.07 (0.6-1.2) mg/dl Est Cr Clr Drug Dosing 35.8 ml/min Est GFR ( Amer) 58.8 Est GFR (Non-Af Amer) 50.7 BUN/Creatinine Ratio 26.4 H (10-20) Glucose 121 H (70-99) mg/dl POC Glucose 120 H (70-99) Calcium 7.9 L (8.5-10.1) mg/dl Blood Type Antibody Screen 10/15/18 10/15/18 10/15/18 Range/Units 20:40 18:16 18:16 WBC 14.25 H (4.8-10.8) K/uL RBC 3.87 L (4.2-5.4) M/uL Hgb 12.3 (12.0-16.0) g/dL Hct 36.8 L (37-47) % MCV 95.1 (80-100) fL MCH 31.8 (25-34) pg MCHC 33.4 (32-36) g/dL RDW Std Deviation 48.9 H (36.4-46.3) fL RDW Coeff of Moi 14.0 (11.5-14.5) % Plt Count 162 (130-400) K/uL MPV 10.0 (7.4-10.4) fL Sodium 137 (136-145) mmol/L Potassium 4.1 (3.5-5.1) mmol/L Chloride 101 (98-107) mmol/L Carbon Dioxide 32 (21-32) mmol/L Anion Gap 4.0 (3-11) BUN 24 H (7-18) mg/dl Creatinine 0.83 (0.6-1.2) mg/dl Est Cr Clr Drug Dosing 47.6 ml/min Est GFR ( Amer) 79.9 Est GFR (Non-Af Amer) 69.0 BUN/Creatinine Ratio 29.1 H (10-20) Glucose 132 H (70-99) mg/dl POC Glucose (70-99) Calcium 8.6 (8.5-10.1) mg/dl Blood Type O Negative Antibody Screen NEGATIVE (1) Skin tear of left hand without complication Encounter type: initial encounter Qualified Code(s): S61.412A - Laceration without foreign body of left hand, initial encounter (2) Hematoma of right lower extremity Encounter type: initial encounter Qualified Code(s): S80.11XA - Contusion of right lower leg, initial encounter (3) Fall Encounter type: initial encounter Qualified Code(s): W19.XXXA - Unspecified fall, initial encounter (4) Closed right hip fracture Encounter type: initial encounter Qualified Code(s): S72.001A - Fracture of unspecified part of neck of right femur, initial encounter for closed fracture
[2018-10-16] MEDS: SIMVASTATIN 20 MG TAB PO SCH (20:41)
[2018-10-16] MEDS: DOCUSATE SODIUM/SENNA 50/8.6MG TAB PO SCH (20:41)
[2018-10-16] MEDS ORDERED: HEPARIN SOD 5,000 UNIT/0.5 ML VIAL SQ SCH (21:00)
--- NOTE | 2018-10-16 23:49 | Consultation Report ---
DATE OF CONSULTATION: 10/16/2018 PSYCHOLOGIST COUNSELING: Tonny Woodruff DO, [facility]. REASON FOR CONSULTATION: New left bundle branch block. REQUESTING PHYSICIAN: Ms. Carmella Grover. Dear Ms. Grover: Thank you for requesting a cardiology consultation on Rebecca with regards to her new left bundle branch block compared to an EKG of 2017. She has had longstanding issues of falls since, most of them thought to be related to vertigo. Yesterday, she got out of bed. She sat at the edge of the bed as she normally does. She stood up to pivot to the bedside commode and felt weak and fell on the floor. Her caregiver was there with her. She had significant pain when trying to stand on it and came to the Emergency Room, where she was found to have a right greater trochanter fracture. She denies any palpitations prior to the fall. She denies tunnel vision or feeling lightheaded. She denied chest pain or chest pressure or shortness of breath prior to the fall. She remembers the entire event, although she notes it happened very quickly. She has had no issues of presyncope or syncope with ambulation. She does walk with a walker and really does not leave her house at this point. Her daughter does the cooking and does the cleaning and the grocery shopping for her. She looks frail for her age. She denies any lower extremity edema, cough, fevers, chills, or sweats. Her appetite is stable. Her weight is stable. REVIEW OF SYSTEMS: She does have hip and leg discomfort today. The rest of review of systems otherwise negative. PAST MEDICAL HISTORY: 1. Right hip fracture status post fall. 2. New left bundle branch block. 3. Hematoma, right lower extremity. 4. History of frequent falls with this most recent episode sounding mechanical. 5. Hyperlipidemia. 6. Hypothyroidism. 7. Hypertension. 8. Depression. 9. GERD. 10. Glaucoma. 11. Osteoarthritis. 12. Chronic kidney disease stage III. 13. Diabetes mellitus type 2. 14. Diabetic neuropathy. FAMILY HISTORY: Noncontributory. SOCIAL HISTORY: She has a caregiver in the morning. Her daughter is at home throughout the day. She is a former smoker. She denies any alcohol. ALLERGIES: GABAPENTIN AND PREGABALIN. MEDICATIONS: Reviewed in electronic medical record. PHYSICAL EXAMINATION: GENERAL: She is awake, alert, oriented x3. VITAL SIGNS: Her heart rate 88, blood pressure 126/63, respirations 20, sat 92% on room air. She appears very frail. HEENT: 2+ carotid upstrokes, no evidence of carotid bruits. Jugular venous pressure did not appear elevated. Her sclerae are anicteric. Her hearing is diminished. LUNGS: Decreased breath sounds in the bases but no rales, rhonchi or wheezing. HEART: Regular rate and rhythm. No appreciable murmurs, rubs or gallops. ABDOMEN: Soft, nontender, nondistended. Positive bowel sounds. EXTREMITIES: No clubbing, cyanosis, edema. PSYCHIATRIC: Affect appeared appropriate. EKG: Sinus rhythm at 71 beats per minute, left bundle branch block, left axis deviation. Echocardiogram is pending. LABORATORY STUDIES: Her troponins are negative. Hemoglobin 10.4, platelet count 145. BUN 28, creatinine 1.07. IMPRESSION: 1. Left bundle branch block. 2. Mechanical fall. 3. Hypertension. We will follow up on her echocardiogram, at least based on her carotid upstroke her LV function should be relatively preserved. Given her frailty and the fact she has no anginal symptoms or heart failure symptoms, I would not aggressively work up her left bundle branch block. Her fall sounds mechanical. I do not think this is related to a bradyarrhythmia. If she would have future falls that are unexplained, she would need a 4-week event recorder to rule out higher degrees of AV block that would require pacemaker implantation. I would allow her blood pressure to be on the higher side in order to avoid any orthostatic symptoms given her frailty. She is on a small dose of lisinopril 5 mg b.i.d. I would consider reducing this to 5 mg daily and let her blood pressure rise slightly. We will review her echocardiogram. Assuming her LV function is reasonably preserved (echo with normal LV Fxn) as noted, I would not recommend any further workup. We will continue to follow her with you. Thank you for allowing us to participate in her care. MC
[2018-10-17] MEDS: MoRPHine SULFATE 2 MG/ML CARP IV PRN (02:40)
[2018-10-17 05:35] LABS: Hematocrit (blood only) 26.8 % (37-47); Mean Corpuscular Hgb Conc 33.6 g/dL (32-36); Mean Corpuscular Volume 96.1 fL (80-100); Mean Platelet Volume 9.4 fL (7.4-10.4); Platelet Count 121 K/uL (130-400); RDW Standard Deviation 48.9 fL (36.4-46.3); Red Blood Count 2.79 M/uL (4.2-5.4)
[2018-10-17 06:05] LABS: BUN Creatinine Ratio 26.3 (10-20); Calcium 7.6 mg/dl (8.5-10.1); Creatinine Clr Calc Pharmacy 45.6 ml/min; Est GFR (African American) 78.8; Magnesium 1.3 mg/dl (1.8-2.4); Potassium 3.9 mmol/L (3.5-5.1)
[2018-10-17] MEDS: LEVOTHYROXINE SODIUM 50 MCG TABLET PO SCH (06:17)
[2018-10-17] MEDS: ASPIRIN 81 MG ECTAB PO SCH ×2 (07:50→20:16)
[2018-10-17] MEDS: PANTOprazole 40 MG TAB PO SCH (07:50)
[2018-10-17] MEDS: VENLAFAXINE HCL XR 150 MG CAPXR PO SCH (07:50)
[2018-10-17] MEDS: OXYCODONE HCL 15 MG TABCR (OXYCONTIN) PO SCH ×2 (07:50→20:17)
[2018-10-17] MEDS: predniSONE 5 MG TAB PO SCH (08:23)
[2018-10-17] MEDS: LORATADINE 10 MG TAB PO SCH (08:23)
[2018-10-17] MEDS: MAGNESIUM SULFATE / D5W 1 GM/100 ML BAG IV SCH ×3 (08:23→10:32)
--- NOTE | 2018-10-17 08:47 | Progress Note ---
DATE: 10/17/2018 SUBJECTIVE: A 77-year-old white female admitted with a right greater trochanter fracture as well as right leg hematoma. She is doing pretty well. Pain seems to be a little bit better today. Still more knee pain than anything. All her hip pain is lateral. OBJECTIVE: VITAL SIGNS: Temperature 36.7. Vital signs stable. GENERAL: Physical examination reveals a pleasant elderly female. She is lying in bed, looks reasonably comfortable. EXTREMITIES: Examination of the right lower extremity reveals the hematoma to be stable. It seems may be a little bit improved. Still quite tender to palpate. No real knee effusion. She can do a straight leg raise. Calf compartments are soft. Examination of the right hip reveals some tenderness of the trochanter. She can still do a straight leg raise with some pain. No groin pain. No pain with passive hip motion. ASSESSMENT: A 77-year-old white female admitted status post a fall with a greater trochanter fracture as follows as the right leg hematoma. She had a similar fracture in her left hip 5 years or so ago and did well with nonoperative care. This is not an operative problem at this time. There are no signs of intertrochanteric or femoral neck extension. Her leg hematoma looks to be mostly in the subcutaneous tissues and should resorb over time. PLAN: She can weightbear as tolerated. No active hip abduction for the next 6 weeks. Compression bandage to the right leg. DVT prophylaxis per the primary service. I just need to see her back in about 2-4 weeks for repeat exam. She is orthopedically okay for discharge any time. Any orthopedic questions can be directed to me at [phone].
[2018-10-17] MEDS: LISINOPRIL 5 MG TAB PO SCH (09:32)
--- NOTE | 2018-10-17 12:57 | Hospitalist Progress Note ---
Date of Service October 17, 2018 Assessment & Plan (1) Closed right hip fracture: - Following fall at home on 10/15; CT showed acute comminuted fracture involving greater trochanter of the right hip. - Pain control: home Oxycontin 30 mg q12hr; Oxycodone and Morphine prn breakthrough pain. - Orthopedics consulted, recommend conservative care. - Weight bearing as tolerated; no hip abduction for the next 6 weeks. Compression bandage to the right leg/knee. - DVT ppx: Aspirin 81 mg BID. - F/u with orthopedics in 2-4 weeks post discharge. - PT/OT ordered - will likely require inpatient rehab. (2) Skin tear of left hand without complication: - Wound care consulted for evaluation. - Consider ppx antibiotics if concern for cellulitis. (3) Hematoma of right lower extremity: - Pain control as noted above. - Wound care consulted for evaluation. (4) Fall: - Was likely a mechanical fall; no indication for further work up. - Lives at home with her daughter, has home health aid. - Will likely need inpatient rehab pending PT/OT recs. (5) Left bundle branch block: - New LBBB noted on EKG. - Echo showed EF 55-60%, mild LVH, focal thickening of the basal septum, grade I diastolic dysfunction. - Consulted cardiology, appreciate input. - Do not recommend aggressive work up of new LBBB. - Will decrease home Lisinopril to 5 mg daily. (6) Chronic diastolic heart failure: - Echo showed EF 55-60%, grade I diastolic dysfunction. - Monitor net I/Os and daily weights. - Continue home Lisinopril - reducing dose as noted above. (7) Aortic stenosis: - Echo showed moderate aortic stenosis. - Avoid hypotension -- decreasing dose of Lisinopril to 5 mg daily. (8) Dyslipidemia: - Continue home statin & aspirin. (9) Hypothyroid: - Continue home Levothyroxine 50 mcg daily. - Most recent TSH was 0.9 in January 2018. (10) HTN (hypertension): - Decrease ACEI to 5 mg daily. - Avoid episodes of hypotension. (11) Depression: - Continue Effexor as prescribed. (12) Chronic back pain: - Continue home Oxycontin 30 mg q12hr. - Oxycodone and Morphine prn breakthrough pain. - Continue home Prednisone 5 mg daily; stress dose steroids not indicated. (13) Uterine fibroid: - 3 cm uterine fibroid vs. ovarian lesion on CT pelvis. - Will need follow up imaging as outpatient. (14) GERD (gastroesophageal reflux disease): - Continue home Protonix and Zantac. (15) Glaucoma: - Will need to bring eye drops in from home. (16) Anemia: Acute blood loss anemia secondary to blood loss from fracture and large hematoma - Hemoglobin decreased to 9.0; baseline ~13-14. - Will continue to monitor. (17) Electrolyte abnormality: Hypomagnesemia - Mag level 1.3 - ordered mag sulfate 3 gm IV. - Repeat level pending this afternoon. (18) DVT prophylaxis: - Aspirin BID; SCDs and ji hose. FEN/GI: Heart healthy diet. DNR/DNI Dispo: Med/surg for hip fracture, pain control and PT/OT evaluation. Supervising Physician Co-Signing Physician Notes PA Supervision Note: I did not personally see or examine the patient today, but I verified all mcgarry points of GILDARDO Grover's assessment and plan with the following exceptions/additions: None Subjective Pt. is stable overall. She walked with PT this morning -- she was able to walk a short distance. Pt. developed pain in her right knee with ambulation. She cannot place weight on her left hand due to pain/open abrasion. Has mild pain in right hip; is not comparable to pain with right knee/hematoma. Denies urinary retention -- she is incontinent of urine (chronic issue). Has not had a BM since admission but is passing gas -- she does not usually have BMs daily at home. Denies abd pain or bloating related to constipation. Denies SOB, chest pain, nausea or vomiting. Review of Systems All systems reviewed & are unremarkable except as noted in HPI & below Constitutional: + fatigue and + weakness; no fever, no chills and no anorexia Respiratory: no cough and no dyspnea Cardiovascular: no chest pain, no palpitations, no lightheadedness, no syncope and no edema Gastrointestinal: + constipation; no abdominal pain and no nausea Genitourinary (Female): + urinary incontinence; no difficulty urinating Musculoskeletal: + back pain and + joint pain (Right knee, left hand, right hip); no body aches Allergy / Immunological: no rash Physical Exam Vital Signs (Past 24 Hours): Last Vital Signs Temp 36.7 C 10/17/18 07:37 Pulse 69 10/17/18 07:37 Resp 15 10/17/18 07:37 BP 132/72 10/17/18 07:37 Pulse Ox 92 10/17/18 07:37 Physical Exam: General: Elderly female, in no acute distress. HEENT: NC/AT; PERRLA with EOMI; [place] conjunctiva, MMM. Neck: Supple and nontender Cardiac: systolic murmur, 2/6, regular rate and rhythm. Lungs: CTA bilaterally Abdomen: Bowel normoactive X 4; Nontender to palpation Extremities: Warm. Large 3 cm hematoma on the anterior portion of the proximal right tib/fib. Neuro: No focal weakness Skin: Large skin tear noted on the dorsum of the left hand - did not visualize on exam, dressing in place; skin tear on the anterior right tib/fib area - did not visualize on exam due to dressing. Results & Data Laboratory Results 10/17/18 10/17/18 10/16/18 Range/Units 05:17 05:17 20:45 WBC 9.50 (4.8-10.8) K/uL RBC 2.79 L (4.2-5.4) M/uL Hgb 9.0 L (12.0-16.0) g/dL Hct 26.8 L (37-47) % MCV 96.1 (80-100) fL MCH 32.3 (25-34) pg MCHC 33.6 (32-36) g/dL RDW Std Deviation 48.9 H (36.4-46.3) fL RDW Coeff of Moi 14.0 (11.5-14.5) % Plt Count 121 L (130-400) K/uL MPV 9.4 (7.4-10.4) fL Sodium 135 L (136-145) mmol/L Potassium 3.9 (3.5-5.1) mmol/L Chloride 99 (98-107) mmol/L Carbon Dioxide 32 (21-32) mmol/L Anion Gap 3.0 (3-11) BUN 22 H (7-18) mg/dl Creatinine 0.84 (0.6-1.2) mg/dl Est Cr Clr Drug Dosing 45.6 ml/min Est GFR ( Amer) 78.8 Est GFR (Non-Af Amer) 68.0 BUN/Creatinine Ratio 26.3 H (10-20) Glucose 110 H (70-99) mg/dl POC Glucose 126 H (70-99) Calcium 7.6 L (8.5-10.1) mg/dl Magnesium 1.3 L (1.8-2.4) mg/dl (1) Skin tear of left hand without complication Encounter type: initial encounter Qualified Code(s): S61.412A - Laceration without foreign body of left hand, initial encounter (2) Hematoma of right lower extremity Encounter type: initial encounter Qualified Code(s): S80.11XA - Contusion of right lower leg, initial encounter (3) Fall Encounter type: initial encounter Qualified Code(s): W19.XXXA - Unspecified fall, initial encounter (4) Closed right hip fracture Encounter type: initial encounter Qualified Code(s): S72.001A - Fracture of unspecified part of neck of right femur, initial encounter for closed fracture
[2018-10-17 14:41] LABS: BUN Creatinine Ratio 21.2 (10-20); Calcium 7.5 mg/dl (8.5-10.1); Creatinine Clr Calc Pharmacy 39.9 ml/min; Est GFR (African American) 67.1; Est GFR (Non-African American) 57.9; Magnesium 2.2 mg/dl (1.8-2.4); Potassium 4.1 mmol/L (3.5-5.1)
[2018-10-17] MEDS ORDERED: CALCIUM GLUCONATE 10% 1,000 MG in SODIUM CHLORIDE 0.9% 50 ML IV STA (15:05)
[2018-10-17] MEDS: OXYCODONE HCL IR 5 MG TAB (IMMEDIATE RELEASE) PO PRN ×2 (15:35→23:46)
[2018-10-17] MEDS: SIMVASTATIN 20 MG TAB PO SCH (20:16)
[2018-10-17] MEDS: DOCUSATE SODIUM/SENNA 50/8.6MG TAB PO SCH (20:17)
[2018-10-18] MEDS: LEVOTHYROXINE SODIUM 50 MCG TABLET PO SCH (05:58)
[2018-10-18 06:17] LABS: Hematocrit (blood only) 26.3 % (37-47); Hemoglobin 8.8 g/dL (12.0-16.0); Mean Corpuscular Hgb Conc 33.5 g/dL (32-36); Mean Corpuscular Volume 94.9 fL (80-100); Mean Platelet Volume 9.5 fL (7.4-10.4); Platelet Count 137 K/uL (130-400); RDW Standard Deviation 48.4 fL (36.4-46.3); Red Blood Count 2.77 M/uL (4.2-5.4); White Blood Count 9.15 K/uL (4.8-10.8)
[2018-10-18 06:52] LABS: BUN Creatinine Ratio 21.7 (10-20); Creatinine Clr Calc Pharmacy 49.8 ml/min; Est GFR (African American) 87.5; Est GFR (Non-African American) 75.5; Magnesium 1.9 mg/dl (1.8-2.4); Potassium 4.1 mmol/L (3.5-5.1)
[2018-10-18] MEDS: OXYCODONE HCL IR 5 MG TAB (IMMEDIATE RELEASE) PO PRN (07:47)
[2018-10-18] MEDS: ONDANSETRON INJ 2 MG/ML 2 ML VIAL IV PRN (09:44)
[2018-10-18] MEDS: OXYCODONE HCL 15 MG TABCR (OXYCONTIN) PO SCH ×2 (10:07→21:56)
[2018-10-18] MEDS: LORATADINE 10 MG TAB PO SCH (10:08)
[2018-10-18] MEDS: VENLAFAXINE HCL XR 150 MG CAPXR PO SCH (10:08)
[2018-10-18] MEDS: PANTOprazole 40 MG TAB PO SCH (10:08)
[2018-10-18] MEDS: predniSONE 5 MG TAB PO SCH (10:09)
[2018-10-18] MEDS: ASPIRIN 81 MG ECTAB PO SCH ×2 (10:09→21:56)
[2018-10-18] MEDS: LISINOPRIL 5 MG TAB PO SCH (10:11)
--- NOTE | 2018-10-18 11:17 | Hospitalist Progress Note ---
Date of Service October 18, 2018 Assessment & Plan (1) Closed right hip fracture: - Following fall at home on 10/15; CT showed acute comminuted fracture involving greater trochanter of the right hip. - Pain control: home Oxycontin 30 mg q12hr; Oxycodone and Morphine PRN breakthrough pain. - DVT prophylaxis - ASA 81 mg BID - PT/OT evaluation - appreciate ongoing assessment - planning on rehab on D/C - Orthopedics consulted, recommend conservative care; weightbearing as tolerated; no hip abduction x 6 weeks; compression bandage to R leg/knee; F/U in 2-4 weeks Present on Admission?: Yes (2) Skin tear of left hand without complication: - Wound care consulted for evaluation. Present on Admission?: Yes (3) Hematoma of right lower extremity: - Pain control as noted above; quarter sized area of intact blistering - Wound care consulted for evaluation. Present on Admission?: Yes (4) Anemia: - Hemoglobin decreased to 8.8; baseline ~13-14. - Will continue to monitor; this is likely from hematomas Present on Admission?: Yes (5) Fall: - Was likely a mechanical fall; no indication for further work up. - Lives at home with her daughter, has home health aid. - Will likely need inpatient rehab Present on Admission?: Yes (6) Left bundle branch block: - New LBBB noted on EKG. - Echo showed EF 55-60%, mild LVH, focal thickening of the basal septum, grade I diastolic dysfunction. - Recommended decrease of Lisinopril to 5 mg daily - Consulted cardiology - no invasive work-up at this time; no ACS symptoms Present on Admission?: Yes (7) Chronic diastolic heart failure: - Echo showed EF 55-60%, grade I diastolic dysfunction; no signs of decompensation at this time - Monitor net I/Os and daily weights. - Continue home Lisinopril - reducing dose as noted above. Present on Admission?: Yes (8) Aortic stenosis: - Echo showed moderate aortic stenosis. - Avoid hypotension -- decreasing dose of Lisinopril to 5 mg daily. Present on Admission?: Yes (9) Dyslipidemia: - Continue home statin & aspirin. Present on Admission?: Yes (10) Hypothyroid: - Continue home Levothyroxine 50 mcg daily. - Most recent TSH was 0.9 in January 2018. Present on Admission?: Yes (11) HTN (hypertension): - Decrease ACEI to 5 mg daily. - Avoid episodes of hypotension Present on Admission?: Yes (12) Depression: - Continue Effexor 150 mg daily Present on Admission?: Yes (13) Chronic back pain: - Continue home Oxycontin 30 mg q12hr. - Oxycodone and Morphine prn breakthrough pain. - Continue home Prednisone 5 mg daily; stress dose steroids not indicated. Present on Admission?: Yes (14) Uterine fibroid: - 3 cm uterine fibroid vs. ovarian lesion on CT pelvis. - Will need follow up imaging as outpatient. Present on Admission?: Yes (15) GERD (gastroesophageal reflux disease): - Continue home Protonix and Zantac. Present on Admission?: Yes (16) Glaucoma: - Will need to bring eye drops in from home. Present on Admission?: Yes (17) DVT prophylaxis: - Aspirin BID; SCDs and ij reinae. Disposition: Anticipating rehab no referrals yet will discuss with patient and daughter later today Subjective Reports some increased pain today since she did do some therapy. She states she might need to ask for it more than she has been but doesn't like how strong pain medication makes her feel. She is feeling a little nauseous this AM and the Zofran is helping. Overall just feels tired. Hgb is trending down and likely in the setting of her hematomas and will monitor. She is unsure where she would like to go to rehab at this point. She states she doesn't actually want to go but knows its not feasible to return home just yet. Constitutional: + fatigue and + weakness; no fever and no chills Respiratory: no cough and no dyspnea Cardiovascular: no chest pain, no palpitations and no lightheadedness Gastrointestinal: + nausea and + constipation; no abdominal pain, no vomiting and no diarrhea/loose stools Genitourinary (Female): + urinary incontinence; no dysuria and no difficulty urinating Musculoskeletal: + back pain and + joint pain (Right knee, left hand, right hip); no body aches Integumentary: + lesions (on left hand and right knee ) Physical Exam Vital Signs (Past 24 Hours): Last Vital Signs Temp 36.7 C 10/18/18 07:00 Pulse 61 10/18/18 07:00 Resp 15 10/18/18 07:00 BP 154/78 H 10/18/18 10:11 Pulse Ox 93 10/18/18 07:00 Constitutional: WD/WN, vitals as above Eyes: + anicteric sclerae ENMT: Ears: no hearing impairment Neck: trachea midline Respiratory: normal respiratory effort, lungs clear to auscultation Cardiovascular: Rate/Rhythm: regular rate and regular rhythm Gastrointestinal (Abdomen): Inspection/Auscultation: normal bowel sounds Percussion/Palpation: abdomen soft; abdomen nontender Musculoskeletal: Dressing applied to anterior knee C/D/I and did not remove; Large hematoma of the anteromedial aspect of the inferior R knee with quarter sized fluid filled blister that is intact Neurologic: moves all extremities Psychiatric: A+Ox3, euthymic affect (1) Closed right hip fracture Encounter type: initial encounter Qualified Code(s): S72.001A - Fracture of unspecified part of neck of right femur, initial encounter for closed fracture (2) Skin tear of left hand without complication Encounter type: initial encounter Qualified Code(s): S61.412A - Laceration without foreign body of left hand, initial encounter (3) Hematoma of right lower extremity Encounter type: initial encounter Qualified Code(s): S80.11XA - Contusion of right lower leg, initial encounter (4) Fall Encounter type: initial encounter Qualified Code(s): W19.XXXA - Unspecified fall, initial encounter
--- NOTE | 2018-10-18 15:17 | Progress Note ---
DATE: 10/18/2018 SUBJECTIVE: A 77-year-old white female admitted with a right greater trochanter fracture as well as right leg contusion/hematoma. She is doing okay. Still have mostly lateral hip pain and leg pain. The leg pain seems to be getting better. She did say she put some weight on her leg with some pain, but not unbearable. OBJECTIVE: VITAL SIGNS: Temperature 36.7. Vital signs stable. GENERAL: Physical examination reveals a pleasant elderly female. She is quite frail. She is lying in bed. Looks comfortable. EXTREMITIES: Examination of the right hip and leg reveals the leg lengths to be equal. She can still do a straight leg raise with some effort with some pain laterally. No pain with passive hip motion. Examination of the right knee reveals no knee effusion. She does have a spreading hematoma which looks to be dispersing, but widening. Her compartments continued to be soft. She is neurologically intact. ASSESSMENT: A 77-year-old frail female with a right greater trochanter fracture as well as right leg contusion. She is stable. She certainly can be sore for probably next couple weeks. PLAN: At this point, we would recommend just continued therapy. She can weightbear as tolerated. No active hip abduction. Routine just wound care and compressive bandage to the right calf. She is orthopedically stable for discharge. I can check her back in 2-4 weeks. Any orthopedic questions can be directed to me at [phone]. Otherwise, I am going to sign off for now. If need any further assistance or symptoms change, let me know.
[2018-10-18] MEDS ORDERED: BISACODYL 5 MG TABEC PO PRN (15:30)
[2018-10-18] MEDS: SIMVASTATIN 20 MG TAB PO SCH (21:56)
[2018-10-18] MEDS: DOCUSATE SODIUM/SENNA 50/8.6MG TAB PO SCH (21:56)
[2018-10-18] MEDS: MICONAZOLE NITRATE POWDER 43 GM EXT SCH (21:57)
[2018-10-19] MEDS: LEVOTHYROXINE SODIUM 50 MCG TABLET PO SCH (06:01)
[2018-10-19] MEDS: MoRPHine SULFATE 2 MG/ML CARP IV PRN (06:01)
[2018-10-19 08:46] LABS: Hematocrit (blood only) 27.8 % (37-47); Hemoglobin 9.4 g/dL (12.0-16.0); Mean Corpuscular Hgb Conc 33.8 g/dL (32-36); Mean Corpuscular Volume 95.2 fL (80-100); Mean Platelet Volume 9.4 fL (7.4-10.4); Platelet Count 163 K/uL (130-400); RDW Coefficient of Variation 14.1 % (11.5-14.5); RDW Standard Deviation 48.9 fL (36.4-46.3); Red Blood Count 2.92 M/uL (4.2-5.4); White Blood Count 8.91 K/uL (4.8-10.8)
[2018-10-19] MEDS: OXYCODONE HCL 15 MG TABCR (OXYCONTIN) PO SCH ×2 (09:02→21:07)
[2018-10-19] MEDS: predniSONE 5 MG TAB PO SCH (09:03)
[2018-10-19] MEDS: ASPIRIN 81 MG ECTAB PO SCH ×2 (09:03→21:01)
[2018-10-19] MEDS: LISINOPRIL 5 MG TAB PO SCH (09:06)
[2018-10-19] MEDS: MICONAZOLE NITRATE POWDER 43 GM EXT SCH ×2 (09:06→21:01)
[2018-10-19] MEDS: VENLAFAXINE HCL XR 150 MG CAPXR PO SCH (09:52)
[2018-10-19] MEDS: PANTOprazole 40 MG TAB PO SCH (09:52)
[2018-10-19] MEDS: LORATADINE 10 MG TAB PO SCH (09:52)
--- NOTE | 2018-10-19 17:46 | Hospitalist Progress Note ---
Date of Service October 19, 2018 Assessment & Plan (1) Closed right hip fracture: - Osteoporosis with current pathological fracture of R greater trochanger - Following fall at home on 10/15; CT showed acute comminuted fracture involving greater trochanter of the right hip. - Pain control: home Oxycontin 30 mg BID; Oxycodone and Morphine PRN breakthrough pain. - DVT prophylaxis - ASA 81 mg BID - PT/OT evaluation - appreciate ongoing assessment - planning on rehab on D/C - Orthopedics consulted, recommend conservative care; weightbearing as tolerated; no hip abduction x 6 weeks; compression bandage to R leg/knee; F/U in 2-4 weeks Present on Admission?: Yes (2) Skin tear of left hand without complication: - No signs of infection at this time - Wound care consulted for evaluation. Present on Admission?: Yes (3) Hematoma of right lower extremity: - Pain control as noted above; two intact blistering regions of knee - Wound care consulted for evaluation. Present on Admission?: Yes (4) Anemia: - Acute blood loss anemia likely from hematoma - Hemoglobin decreased to 8.8 and now trending up; baseline ~13-14. Present on Admission?: Yes (5) Fall: - Was likely a mechanical fall; no indication for further work up. - Lives at home with her daughter, has home health aid. - Will likely need inpatient rehab - however daughter considering home after admission Present on Admission?: Yes (6) Left bundle branch block: - New LBBB noted on EKG. - Echo showed EF 55-60%, mild LVH, focal thickening of the basal septum, grade I diastolic dysfunction. - Recommended decrease of Lisinopril to 5 mg daily - Consulted cardiology - no invasive work-up at this time; no ACS symptoms Present on Admission?: Yes (7) Chronic diastolic heart failure: - Echo showed EF 55-60%, grade I diastolic dysfunction; no signs of decompensation at this time - Monitor net I/Os and daily weights. - Continue home Lisinopril - reducing dose as noted above. Present on Admission?: Yes (8) Aortic stenosis: - Echo showed moderate aortic stenosis. - Avoid hypotension -- decreasing dose of Lisinopril to 5 mg daily. Present on Admission?: Yes (9) Dyslipidemia: - Continue home statin & aspirin. Present on Admission?: Yes (10) Hypothyroid: - Continue home Levothyroxine 50 mcg daily. - Most recent TSH was 0.9 in January 2018. Present on Admission?: Yes (11) HTN (hypertension): - Decrease ACEI to 5 mg daily. - Avoid episodes of hypotension Present on Admission?: Yes (12) Depression: - Continue Effexor 150 mg daily Present on Admission?: No (13) Chronic back pain: - Continue home Oxycontin 30 mg BID - Oxycodone and Morphine prn breakthrough pain. - Continue home Prednisone 5 mg daily; stress dose steroids not indicated. Present on Admission?: Yes (14) Uterine fibroid: - 3 cm uterine fibroid vs. ovarian lesion on CT pelvis. - Will need follow up imaging as outpatient. Present on Admission?: Yes (15) GERD (gastroesophageal reflux disease): - Continue home Protonix and Zantac. Present on Admission?: Yes (16) Glaucoma: - Will need to bring eye drops in from home. Present on Admission?: Yes (17) DVT prophylaxis: - Aspirin BID Disposition: Some referrals sent in - patient/daughter to talk about possible return home Subjective Reports having increased pain in the early AM requiring IV pain medication but not needing much more above her chronic doses the rest of the day States she feels a bit better but just generally fatigued. Fluid blisters are still intact but seem slightly enlarged compared to previous day but she is sitting in the chair so maybe slightly worsened by dependent edema Constitutional: + fatigue and + weakness; no fever and no chills Respiratory: no cough and no dyspnea Cardiovascular: no chest pain, no palpitations and no edema Gastrointestinal: no abdominal pain, no nausea and no vomiting Genitourinary (Female): + urinary incontinence; no dysuria and no difficulty urinating Musculoskeletal: + back pain and + joint pain (Right knee, left hand, right hip); no body aches Integumentary: + lesions (on left hand and right knee ) Physical Exam Vital Signs (Past 24 Hours): Last Vital Signs Temp 36.8 C 10/19/18 15:19 Pulse 77 10/19/18 15:19 Resp 18 10/19/18 15:19 BP 157/71 H 10/19/18 15:19 Pulse Ox 96 10/19/18 15:19 Constitutional: WD/WN, vitals as above Eyes: + anicteric sclerae ENMT: Ears: no hearing impairment Neck: trachea midline Respiratory: normal respiratory effort, lungs clear to auscultation Cardiovascular: Rate/Rhythm: regular rate and regular rhythm Gastrointestinal (Abdomen): Inspection/Auscultation: normal bowel sounds Percussion/Palpation: abdomen soft; abdomen nontender Neurologic: moves all extremities Psychiatric: A+Ox3, euthymic affect (1) Skin tear of left hand without complication Encounter type: initial encounter Qualified Code(s): S61.412A - Laceration without foreign body of left hand, initial encounter (2) Hematoma of right lower extremity Encounter type: initial encounter Qualified Code(s): S80.11XA - Contusion of right lower leg, initial encounter (3) Fall Encounter type: initial encounter Qualified Code(s): W19.XXXA - Unspecified fall, initial encounter (4) Closed right hip fracture Encounter type: initial encounter Qualified Code(s): S72.001A - Fracture of unspecified part of neck of right femur, initial encounter for closed fracture
[2018-10-19] MEDS: SIMVASTATIN 20 MG TAB PO SCH (21:02)
[2018-10-19] MEDS: DOCUSATE SODIUM/SENNA 50/8.6MG TAB PO SCH (21:07)
[2018-10-20] MEDS: LEVOTHYROXINE SODIUM 50 MCG TABLET PO SCH (05:48)
[2018-10-20 08:47] LABS: Hematocrit (blood only) 27.3 % (37-47); Hemoglobin 9.2 g/dL (12.0-16.0); Mean Corpuscular Hgb Conc 33.7 g/dL (32-36); Mean Corpuscular Volume 95.1 fL (80-100); Mean Platelet Volume 9.3 fL (7.4-10.4); Platelet Count 183 K/uL (130-400); RDW Coefficient of Variation 14.2 % (11.5-14.5); RDW Standard Deviation 49.1 fL (36.4-46.3); Red Blood Count 2.87 M/uL (4.2-5.4); White Blood Count 8.97 K/uL (4.8-10.8)
[2018-10-20] MEDS: VENLAFAXINE HCL XR 150 MG CAPXR PO SCH (08:48)
[2018-10-20] MEDS: OXYCODONE HCL 15 MG TABCR (OXYCONTIN) PO SCH ×2 (08:48→21:19)
[2018-10-20] MEDS: MICONAZOLE NITRATE POWDER 43 GM EXT SCH ×2 (08:48→21:16)
[2018-10-20] MEDS: ASPIRIN 81 MG ECTAB PO SCH ×2 (08:48→21:16)
[2018-10-20] MEDS: LORATADINE 10 MG TAB PO SCH (08:48)
[2018-10-20] MEDS: predniSONE 5 MG TAB PO SCH (08:49)
[2018-10-20] MEDS: PANTOprazole 40 MG TAB PO SCH (08:49)
[2018-10-20] MEDS: LISINOPRIL 5 MG TAB PO SCH (08:49)
[2018-10-20 09:34] LABS: BUN Creatinine Ratio 20.7 (10-20); Calcium 8.4 mg/dl (8.5-10.1); Creatinine Clr Calc Pharmacy 63.9 ml/min; Est GFR (African American) 103.3; Est GFR (Non-African American) 89.2; Potassium 3.9 mmol/L (3.5-5.1)
[2018-10-20] MEDS: OXYCODONE HCL IR 5 MG TAB (IMMEDIATE RELEASE) PO PRN (13:00)
--- NOTE | 2018-10-20 15:30 | Progress Note ---
DATE: 10/20/2018 SUBJECTIVE: A 77-year-old white female admitted status post a fall with a right greater trochanter fracture as well as the right leg hematoma and skin tear to her left hand. She is continued to be in the hospital. She has been getting better pain silva. No new complaints. OBJECTIVE: VITAL SIGNS: Temperature 36.4. Vital signs stable. GENERAL: Reveals a pleasant elderly female. She is lying in bed, looks pretty comfortable. She is awake, alert and appropriate. EXTREMITIES: Examination of the right leg does reveal a diffusing hematoma. She does have some hemorrhagic fracture blisters from the swelling. No knee effusion. She is neurologically intact. Examination of the right hip reveals minimal pain with hip motion. Leg lengths are equal. She is neurologically intact. ASSESSMENT: A 77-year-old white female admitted with status post a fall with a greater trochanter fracture as well as the right leg hematoma. Things seem to be improving pain silva. She does have quite a bit of swelling in her leg, which is not too surprising. This will dissipate with time. PLAN: We will continue to allow to weightbear as tolerated in the right leg. No active hip abduction. Routine wound care to the right calf. She is orthopedically stable for discharge at any time medically stable. I need to see her back somewhere between 2 and 4 weeks out from her injury. Any orthopedic questions can be directed at [phone]. [facility]
--- NOTE | 2018-10-20 15:56 | Hospitalist Progress Note ---
Date of Service October 20, 2018 Assessment & Plan (1) Closed right hip fracture: - Osteoporosis with current pathological fracture of R greater trochanter - Following fall at home on 10/15; CT showed acute comminuted fracture involving greater trochanter of the right hip. - Pain control: home Oxycontin 30 mg BID; Oxycodone and Morphine PRN breakthrough pain. - DVT prophylaxis - ASA 81 mg BID - PT/OT evaluation - appreciate ongoing assessment - planning on rehab on D/C - Orthopedics consulted, recommend conservative care; weightbearing as tolerated; no hip abduction x 6 weeks; compression bandage to R leg/knee; F/U in 2-4 weeks (2) Skin tear of left hand without complication: - No signs of infection at this time - Wound care consulted for evaluation. (3) Hematoma of right lower extremity: - Pain control as noted above; two intact blistering regions of knee - Wound care consulted for evaluation. (4) Anemia: - Acute blood loss anemia likely from hematoma - Hemoglobin decreased to 8.8 and now trending up and stable; baseline ~13-14. (5) Fall: - Was likely a mechanical fall; no indication for further work up. - Lives at home with her daughter, has home health aid. - Will likely need inpatient rehab - however daughter considering home after admission - awaiting patient decision (6) Left bundle branch block: - New LBBB noted on EKG. - Echo showed EF 55-60%, mild LVH, focal thickening of the basal septum, grade I diastolic dysfunction. - Recommended decrease of Lisinopril to 5 mg daily - Consulted cardiology - no invasive work-up at this time; no ACS symptoms (7) Chronic diastolic heart failure: - Echo showed EF 55-60%, grade I diastolic dysfunction; no signs of decompensation at this time - Monitor net I/Os and daily weights. - Continue home Lisinopril - reducing dose as noted above. (8) Aortic stenosis: - Echo showed moderate aortic stenosis. - Avoid hypotension -- decreasing dose of Lisinopril to 5 mg daily. (9) Dyslipidemia: - Continue home statin & aspirin. (10) Hypothyroid: - Continue home Levothyroxine 50 mcg daily. - Most recent TSH was 0.9 in January 2018. (11) HTN (hypertension): - Decrease ACEI to 5 mg daily. - Avoid episodes of hypotension (12) Depression: - Continue Effexor 150 mg daily (13) Chronic back pain: - Continue home Oxycontin 30 mg BID - Oxycodone and Morphine prn breakthrough pain. - Continue home Prednisone 5 mg daily; stress dose steroids not indicated. (14) Uterine fibroid: - 3 cm uterine fibroid vs. ovarian lesion on CT pelvis. - Will need follow up imaging as outpatient. (15) GERD (gastroesophageal reflux disease): - Continue home Protonix and Zantac. (16) Glaucoma: - Will need to bring eye drops in from home. (17) DVT prophylaxis: - Aspirin BID Disposition: Patient to make decision on home vs rehab; referrals given likely will not be an option - can apply to other places vs home with further home services - possibly next 1-2 days Subjective Reports she is feeling okay today and feels like she is doing a bit more with therapy today. States she isn't having lightheadedness but feels like she wants to lean back when walking. One of the fluid blisters did open today with bandage applied. She states she hasn't moved her bowels in a couple days and can use some PRN medications to assist with this Constitutional: + fatigue and + weakness; no fever and no chills Respiratory: no cough and no dyspnea Cardiovascular: no chest pain and no lightheadedness Gastrointestinal: + constipation; no abdominal pain, no nausea, no vomiting and no diarrhea/loose stools Genitourinary (Female): no dysuria Musculoskeletal: + back pain, + joint pain (Right knee, left hand, right hip) and + stiffness (R shoulder); no body aches Integumentary: + lesions (on left hand and right knee ) Physical Exam Vital Signs (Past 24 Hours): Last Vital Signs Temp 36.7 C 10/20/18 15:29 Pulse 85 10/20/18 15:29 Resp 17 10/20/18 15:29 BP 145/78 H 10/20/18 15:29 Pulse Ox 97 10/20/18 15:29 Constitutional: WD/WN, vitals as above Eyes: + anicteric sclerae ENMT: Ears: no hearing impairment Neck: trachea midline Respiratory: normal respiratory effort, lungs clear to auscultation Cardiovascular: Rate/Rhythm: regular rate and regular rhythm Gastrointestinal (Abdomen): Inspection/Auscultation: normal bowel sounds Percussion/Palpation: abdomen soft; abdomen nontender Musculoskeletal: Head/Neck/Chest: normocephalic and head atraumatic lateral R knee fluid filled blister deflated but slightly enlarged medial fluid-filled blister remains intact; stable medial hematoma and scattered/large ecchymosis of the R knee Neurologic: moves all extremities Psychiatric: A+Ox3, euthymic affect (1) Skin tear of left hand without complication Encounter type: initial encounter Qualified Code(s): S61.412A - Laceration without foreign body of left hand, initial encounter (2) Hematoma of right lower extremity Encounter type: initial encounter Qualified Code(s): S80.11XA - Contusion of right lower leg, initial encounter (3) Fall Encounter type: initial encounter Qualified Code(s): W19.XXXA - Unspecified fall, initial encounter (4) Closed right hip fracture Encounter type: initial encounter Qualified Code(s): S72.001A - Fracture of unspecified part of neck of right femur, initial encounter for closed fracture
[2018-10-20] MEDS ORDERED: POLYETHYLENE (MIRALAX) 17 GM PACK PO PRN (15:57)
[2018-10-20] MEDS: DICLOFENAC SOD 1% GEL 100 GM TUBE EXT SCH (21:15)
[2018-10-20] MEDS: SIMVASTATIN 20 MG TAB PO SCH (21:16)
[2018-10-20] MEDS: DOCUSATE SODIUM/SENNA 50/8.6MG TAB PO SCH (21:19)
[2018-10-20] MEDS: MoRPHine SULFATE 2 MG/ML CARP IV PRN (23:37)
[2018-10-20] MEDS: ONDANSETRON INJ 2 MG/ML 2 ML VIAL IV PRN (23:37)
[2018-10-21] MEDS: LEVOTHYROXINE SODIUM 50 MCG TABLET PO SCH (05:32)
[2018-10-21] MEDS ORDERED: BISACODYL 5 MG TABEC PO ONE (08:21)
[2018-10-21 08:56] LABS: Hematocrit (blood only) 28.3 % (37-47); Hemoglobin 9.4 g/dL (12.0-16.0); Mean Corpuscular Hgb Conc 33.2 g/dL (32-36); Mean Platelet Volume 9.1 fL (7.4-10.4); Platelet Count 210 K/uL (130-400); RDW Coefficient of Variation 14.4 % (11.5-14.5); RDW Standard Deviation 49.4 fL (36.4-46.3); Red Blood Count 2.98 M/uL (4.2-5.4); White Blood Count 9.57 K/uL (4.8-10.8)
[2018-10-21] MEDS: ASPIRIN 81 MG ECTAB PO SCH ×2 (09:25→20:43)
[2018-10-21] MEDS: LISINOPRIL 5 MG TAB PO SCH (09:25)
[2018-10-21] MEDS: LORATADINE 10 MG TAB PO SCH (09:25)
[2018-10-21] MEDS: MICONAZOLE NITRATE POWDER 43 GM EXT SCH ×2 (09:25→20:43)
[2018-10-21] MEDS: predniSONE 5 MG TAB PO SCH (09:25)
[2018-10-21] MEDS: VENLAFAXINE HCL XR 150 MG CAPXR PO SCH (09:25)
[2018-10-21] MEDS: PANTOprazole 40 MG TAB PO SCH (09:25)
[2018-10-21 09:26] LABS: BUN Creatinine Ratio 21.3 (10-20); Calcium 8.2 mg/dl (8.5-10.1); Creatinine Clr Calc Pharmacy 58.1 ml/min; Est GFR (African American) 100.2; Est GFR (Non-African American) 86.4; Magnesium 1.4 mg/dl (1.8-2.4); Potassium 3.9 mmol/L (3.5-5.1)
[2018-10-21] MEDS: DICLOFENAC SOD 1% GEL 100 GM TUBE EXT SCH ×3 (09:26→20:44)
[2018-10-21] MEDS: OXYCODONE HCL 15 MG TABCR (OXYCONTIN) PO SCH ×2 (09:29→20:48)
--- NOTE | 2018-10-21 15:11 | XRay Report ---
XR shoulder RT min 2V routine CLINICAL HISTORY: Shoulder pain; reduced ROM pain COMPARISON: None. DISCUSSION: Evidence for a prior rotator cuff tear. Metallic anchors are identified at the lateral as pect humeral head. Moderate generalized degenerative change of the glenohumeral joint. Degenerative changes acromioclavi cular joint with inferior osteophytic formation at the lateral margin of the clavicle. No acute bony abnormality. There is no evidence for soft tissue swelling. IMPRESSION: Moderate degenerative and postoperative change as described. No acute process. The above report was generated using voice recognition software. It may contain grammatical, syntax or spelling errors. Electronically signed by: Weston Vaz M.D. 10/21/2018 3:10 PM
[2018-10-21] MEDS: OXYCODONE HCL IR 5 MG TAB (IMMEDIATE RELEASE) PO PRN (15:44)
--- NOTE | 2018-10-21 19:29 | Hospitalist Progress Note ---
Date of Service October 21, 2018 Assessment & Plan (1) Closed right hip fracture: - Osteoporosis with current pathological fracture of R greater trochanter - Following fall at home on 10/15; CT showed acute comminuted fracture involving greater trochanter of the right hip. - Pain control: home Oxycontin 30 mg BID; Oxycodone and Morphine PRN breakthrough pain. - DVT prophylaxis - ASA 81 mg BID - can continue for now but may need to adjust pending need for intervention of hematoma - PT/OT evaluation - appreciate ongoing assessment and allow her to continue to move/ambulate- planning on rehab on D/C vs home - Orthopedics consulted, recommend conservative care; weightbearing as tolerated; no hip abduction x 6 weeks; compression bandage to R leg/knee; F/U in 2-4 weeks from injury (2) Skin tear of left hand without complication: - No signs of infection at this time and site improving from admission but will need BID dressing changes per wound care recommendations - Wound care consulted for evaluation/recommendations (3) Hematoma of right lower extremity: - Pain control as noted above; one blister (lateral) ruptured and now scabbed over with eschar; medial blister intact and slightly enlarging, hematoma size remains stable - Will start with a U/S to assess size and whether this is edema vs fluid - may need CT if not enough information - Wound care following - discussed with Shana from wound care and present during her assessment today - discussion of imaging and possible need for evacuation pending studies (4) Fall: - Was likely a mechanical fall; no indication for further work up; however does have a H/O vertigo - Lives at home with her daughter, has home health aid. - Not completely certain of discharge plan. Patient did give another option for rehab as she appears a little unsure if home is the right choice but I feel she is afraid to be a burden on people and is hesitant to make a decision (5) Left bundle branch block: - New LBBB noted on EKG. - Echo showed EF 55-60%, mild LVH, focal thickening of the basal septum, grade I diastolic dysfunction. - Recommended decrease of Lisinopril to 5 mg daily - Consulted cardiology - no invasive work-up at this time; no ACS symptoms (6) Chronic diastolic heart failure: - Echo showed EF 55-60%, grade I diastolic dysfunction; no signs of decompensation at this time - Monitor net I/Os and daily weights. - Continue home Lisinopril - reducing dose as noted above. (7) Aortic stenosis: - Echo showed moderate aortic stenosis. - Avoid hypotension -- decreasing dose of Lisinopril to 5 mg daily. (8) Dyslipidemia: - Continue home statin & aspirin. (9) Hypothyroid: - Continue home Levothyroxine 50 mcg daily. - Most recent TSH was 0.9 in January 2018. (10) HTN (hypertension): - Decrease ACEI to 5 mg daily.; daughter is concerned of the rising blood pressure which could be multifactorial with pain and stress and she does take chronic steroids however is consistently running high -- Could consider returning to the BID dosing and monitoring closely - Avoid episodes of hypotension (11) Depression: - Continue Effexor 150 mg daily (12) Chronic back pain: - Continue home Oxycontin 30 mg BID - Oxycodone and Morphine prn breakthrough pain. - Continue home Prednisone 5 mg daily; stress dose steroids not indicated. (13) Uterine fibroid: - 3 cm uterine fibroid vs. ovarian lesion on CT pelvis. - Will need follow up imaging as outpatient. (14) GERD (gastroesophageal reflux disease): - Continue home Protonix and Zantac. (15) Glaucoma: - Will need to bring eye drops in from home. (16) Anemia: Acute blood loss anemia secondary to blood loss from fracture and large hematoma - Hemoglobin decreased to 9.4; baseline ~13-14. - Will continue to monitor. (17) DVT prophylaxis: - Aspirin BID Disposition: Patient to make decision on home vs rehab; now with need to explore this hematoma may prolong admission Subjective Reports feeling like she is doing a little bit more with therapy but still worried about her mobility and if she can do that at home. Having more stiffness in her R shoulder that is acute on chronic and luckily no signs of broken bones or soft tissue swelling on XR Still without BM and gave Dulcolax this AM. May need to get more aggressive if this doesn't produce a bowel movement. Discussed with wound care and will image the hematoma region to assess if this needs drained vs monitoring Constitutional: + fatigue and + weakness; no fever and no chills Respiratory: no cough and no dyspnea Cardiovascular: no chest pain Gastrointestinal: + constipation; no abdominal pain, no nausea, no vomiting and no diarrhea/loose stools Genitourinary (Female): + urinary incontinence; no dysuria Musculoskeletal: + joint pain (Right knee, left hand, right hip) and + stiffness (R shoulder) Integumentary: + lesions (on left hand and right knee ) and + wounds Physical Exam Vital Signs (Past 24 Hours): Last Vital Signs Temp 36.3 C L 10/21/18 15:58 Pulse 86 10/21/18 15:58 Resp 17 10/21/18 15:58 BP 186/88 H 10/21/18 15:58 Pulse Ox 95 10/21/18 15:58 Constitutional: no acute distress Eyes: + anicteric sclerae ENMT: Ears: no hearing impairment Neck: trachea midline Respiratory: normal respiratory effort, lungs clear to auscultation Cardiovascular: Rate/Rhythm: regular rate and regular rhythm Gastrointestinal (Abdomen): Inspection/Auscultation: normal bowel sounds Percussion/Palpation: abdomen soft; abdomen nontender Musculoskeletal: Head/Neck/Chest: normocephalic and neck supple Extremities: no cyanosis and no clubbing limited ROM of R shoulder due to discomfort. No palpable tenderness along the clavicle or bony areas of the shoulder. discomfort with palpation of the R posterior axillary region without step off or noted deformity; patient observed utilizes her L hand to pull the right hand to pick things up Skin: Trauma: + evidence of skin trauma (Large L hand skin tear with red/yellow base with purpling of tissue ends) R knee lateral fluid blister deflated now with blackened tissue intact without drainage; continues large fluid filled blister of medial knee with dark fluid and underlying enlarged area of hematoma Neurologic: moves all extremities Psychiatric: A+Ox3, euthymic affect (1) Skin tear of left hand without complication Encounter type: initial encounter Qualified Code(s): S61.412A - Laceration without foreign body of left hand, initial encounter (2) Hematoma of right lower extremity Encounter type: initial encounter Qualified Code(s): S80.11XA - Contusion of right lower leg, initial encounter (3) Fall Encounter type: initial encounter Qualified Code(s): W19.XXXA - Unspecified fall, initial encounter (4) Closed right hip fracture Encounter type: initial encounter Qualified Code(s): S72.001A - Fracture of unspecified part of neck of right femur, initial encounter for closed fracture
[2018-10-21] MEDS: SIMVASTATIN 20 MG TAB PO SCH (20:46)
[2018-10-21] MEDS: DOCUSATE SODIUM/SENNA 50/8.6MG TAB PO SCH (20:48)
--- NOTE | 2018-10-21 22:25 | Ultrasound Report ---
RIGHT CALF ULTRASOUND CLINICAL HISTORY: R inferior/medial hematoma - fluid vs edema COMPARISON STUDY: No previous studies for comparison. TECHNIQUE: Sonography of the right calf at site of palpable abnormality was performed. FINDINGS: Note is made of a subcutaneous elongated hypoechoic fluid collection of the right calf that measures 10.9 x 1.4 x 8 cm. This contains no color flow. IMPRESSION: 10.9 x 1.4 x 8 cm subcutaneous hypoechoic right calf fluid collection favors a hematoma. Electronically signed by: Jonathan Garner M.D. 10/21/2018 10:24 PM
[2018-10-22] MEDS: OXYCODONE HCL IR 5 MG TAB (IMMEDIATE RELEASE) PO PRN ×3 (00:47→23:26)
[2018-10-22] MEDS: LEVOTHYROXINE SODIUM 50 MCG TABLET PO SCH (06:01)
[2018-10-22] MEDS: DICLOFENAC SOD 1% GEL 100 GM TUBE EXT SCH ×3 (08:04→20:57)
[2018-10-22] MEDS: VENLAFAXINE HCL XR 150 MG CAPXR PO SCH (08:04)
[2018-10-22] MEDS: MICONAZOLE NITRATE POWDER 43 GM EXT SCH ×2 (08:04→20:56)
[2018-10-22] MEDS: ASPIRIN 81 MG ECTAB PO SCH ×2 (08:04→20:57)
[2018-10-22] MEDS: predniSONE 5 MG TAB PO SCH (08:04)
[2018-10-22] MEDS: OXYCODONE HCL 15 MG TABCR (OXYCONTIN) PO SCH ×2 (08:04→20:59)
[2018-10-22] MEDS: LORATADINE 10 MG TAB PO SCH (08:04)
[2018-10-22] MEDS: LISINOPRIL 5 MG TAB PO SCH (08:05)
[2018-10-22] MEDS: PANTOprazole 40 MG TAB PO SCH (08:05)
[2018-10-22 09:19] LABS: Hematocrit (blood only) 27.1 % (37-47); Hemoglobin 9.2 g/dL (12.0-16.0); Mean Corpuscular Hgb Conc 33.9 g/dL (32-36); Mean Corpuscular Volume 95.4 fL (80-100); Mean Platelet Volume 9.3 fL (7.4-10.4); Platelet Count 242 K/uL (130-400); RDW Coefficient of Variation 14.3 % (11.5-14.5); RDW Standard Deviation 48.8 fL (36.4-46.3); Red Blood Count 2.84 M/uL (4.2-5.4); White Blood Count 10.19 K/uL (4.8-10.8)
[2018-10-22 09:37] LABS: BUN Creatinine Ratio 20.9 (10-20); Calcium 8.1 mg/dl (8.5-10.1); Creatinine Clr Calc Pharmacy 59.9 ml/min; Est GFR (African American) 101.2; Est GFR (Non-African American) 87.3; Potassium 3.9 mmol/L (3.5-5.1)
[2018-10-22] MEDS ORDERED: LACTULOSE SYRUP 10 GM/15 ML BTL 473 ML PO ONE (16:00)
--- NOTE | 2018-10-22 16:01 | Hospitalist Progress Note ---
Date of Service October 22, 2018 Assessment & Plan (1) Closed right hip fracture: - Osteoporosis with current pathological fracture of R greater trochanter - Following fall at home on 10/15; CT showed acute comminuted fracture involving greater trochanter of the right hip. - Pain control: home Oxycontin 30 mg BID; Oxycodone and Morphine PRN breakthrough pain. - Continue bowel regimen - will trial Lactulose - DVT prophylaxis - ASA 81 mg BID - can continue for now but may need to adjust pending need for intervention of hematoma - PT/OT evaluation - appreciate ongoing assessment and allow her to continue to move/ambulate- planning on rehab on D/C vs home - Orthopedics consulted - discussed with Dr. May today - recommend conservative care; weightbearing as tolerated; no hip abduction x 6 weeks; compression bandage to R leg/knee; F/U in 2-4 weeks from injury (2) Skin tear of left hand without complication: - No signs of infection at this time and site improving from admission but will need BID dressing changes per wound care recommendations - Wound care consulted for evaluation/recommendations (3) Hematoma of right lower extremity: - Pain control as noted above; one blister (lateral) ruptured and now scabbed over with eschar; medial blister seems to have deflated, hematoma size remains stable - U/S confirms hematoma - per Orthopedics no direct indication for intervention from his perspective but could lead to a wound management issue - will consult wound care provider to evaluate for possible debridement/evacuation vs conservative management - Wound care following - discussed with wound care today (4) Fall: - Was likely a mechanical fall; no indication for further work up; however does have a H/O vertigo - Lives at home with her daughter, has home health aid. - Not completely certain of discharge plan. Patient did give another option for rehab as she appears a little unsure if home is the right choice but I feel she is afraid to be a burden on people and is hesitant to make a decision (5) Left bundle branch block: - New LBBB noted on EKG. - Echo showed EF 55-60%, mild LVH, focal thickening of the basal septum, grade I diastolic dysfunction. - Recommended decrease of Lisinopril to 5 mg daily - Consulted cardiology - no invasive work-up at this time; no ACS symptoms (6) Chronic diastolic heart failure: - Echo showed EF 55-60%, grade I diastolic dysfunction; no signs of decompensation at this time - Monitor net I/Os and daily weights. - Continue home Lisinopril - reducing dose as noted above. (7) Aortic stenosis: - Echo showed moderate aortic stenosis. - Avoid hypotension -- decreasing dose of Lisinopril to 5 mg daily. (8) Dyslipidemia: - Continue home statin & aspirin. (9) Hypothyroid: - Continue home Levothyroxine 50 mcg daily. - Most recent TSH was 0.9 in January 2018. (10) HTN (hypertension): - Decrease ACEI to 5 mg daily.; daughter is concerned of the rising blood pressure which could be multifactorial with pain and stress and she does take chronic steroids however is consistently running high -- Could consider returning to the BID dosing and monitoring closely - Avoid episodes of hypotension (11) Depression: - Continue Effexor 150 mg daily (12) Chronic back pain: - Continue home Oxycontin 30 mg BID - Oxycodone and Morphine prn breakthrough pain. - Continue home Prednisone 5 mg daily; stress dose steroids not indicated. (13) Uterine fibroid: - 3 cm uterine fibroid vs. ovarian lesion on CT pelvis. - Will need follow up imaging as outpatient. (14) GERD (gastroesophageal reflux disease): - Continue home Protonix and Zantac. (15) Glaucoma: - Will need to bring eye drops in from home. (16) Anemia: - Acute blood loss anemia secondary to blood loss from fracture and large hematoma - Hemoglobin reduced from baseline but stable; baseline ~13-14. - Will continue to monitor. (17) DVT prophylaxis: - Aspirin BID Disposition: Patient to make decision on home vs rehab; now with need to explore this hematoma may prolong admission Subjective Reports feeling a little bit better and smiling and bit more and laughing some. Daughter is excited as this is the first time since admission she has heard her laugh. She reports pain is better. Hematoma is stable and occ. has muscle cramping from the hip. Still without BM but denies feeling constipated or abdominal pain. Is worried ab out having too much diarrhea if too aggressive. Discussed doing one dose of lactulose and patient thinks this might have helped in the past but cannot remember. No other complaints at this time. Updated daughter at bedside. Constitutional: + weakness (slightly improves each day); no fever and no chills Respiratory: no cough and no dyspnea Cardiovascular: no chest pain Gastrointestinal: + constipation; no abdominal pain, no nausea, no vomiting and no diarrhea/loose stools Genitourinary (Female): + urinary incontinence; no dysuria Musculoskeletal: + joint pain (Right knee, left hand, right hip), + stiffness (R shoulder) and + problem reported (intermittent muscle spasm of R hip) Integumentary: + lesions (on left hand and right knee ) and + wounds Physical Exam Vital Signs (Past 24 Hours): Last Vital Signs Temp 36.5 C 10/22/18 15:21 Pulse 89 10/22/18 15:21 Resp 17 10/22/18 15:21 BP 128/76 10/22/18 15:21 Pulse Ox 95 10/22/18 15:21 Constitutional: WD/WN, vitals as above no acute distress Eyes: + anicteric sclerae ENMT: Ears: no hearing impairment Neck: trachea midline Respiratory: normal respiratory effort, lungs clear to auscultation Cardiovascular: Rate/Rhythm: regular rate and regular rhythm Gastrointestinal (Abdomen): Inspection/Auscultation: normal bowel sounds Percussion/Palpation: abdomen soft; abdomen nontender Musculoskeletal: Head/Neck/Chest: normocephalic and neck supple Extremities: no cyanosis and no clubbing Large hematoma in the R medial aspect of the knee Skin: Trauma: + evidence of skin trauma (Large L hand skin tear with red/yellow base with purpling of tissue ends) Neurologic: moves all extremities Psychiatric: A+Ox3, euthymic affect (1) Skin tear of left hand without complication Encounter type: initial encounter Qualified Code(s): S61.412A - Laceration without foreign body of left hand, initial encounter (2) Hematoma of right lower extremity Encounter type: initial encounter Qualified Code(s): S80.11XA - Contusion of right lower leg, initial encounter (3) Fall Encounter type: initial encounter Qualified Code(s): W19.XXXA - Unspecified fall, initial encounter (4) Closed right hip fracture Encounter type: initial encounter Qualified Code(s): S72.001A - Fracture of unspecified part of neck of right femur, initial encounter for closed fracture
[2018-10-22] MEDS: SIMVASTATIN 20 MG TAB PO SCH (20:58)
[2018-10-22] MEDS: DOCUSATE SODIUM/SENNA 50/8.6MG TAB PO SCH (20:59)
[2018-10-23] MEDS: LEVOTHYROXINE SODIUM 50 MCG TABLET PO SCH (06:09)
[2018-10-23] MEDS: OXYCODONE HCL IR 5 MG TAB (IMMEDIATE RELEASE) PO PRN ×2 (06:10→15:26)
[2018-10-23 06:30] LABS: Appearance Urine Cloudy (Clear); Bacteria Urine Automated 2+ (Negative); Bilirubin Urine Negative (Negative); Blood Urine Trace (Negative); Color Urine Yellow; Epithelial Cell Urine Auto 0-5 /lpf (0-5); Glucose Urine UA Negative (Negative); Ketones Urine Negative (Negative); Leukocyte Esterase Urine 3+ (Negative); Nitrite Urine Negative (Negative); Protein Urine Negative (Negative); Specific Gravity Urine 1.007 (1.000-1.030); Urobilinogen Urine Negative (Negative); WBC Urine Automated >30 /hpf (0-5)
[2018-10-23] MEDS: predniSONE 5 MG TAB PO SCH (09:15)
[2018-10-23] MEDS: OXYCODONE HCL 15 MG TABCR (OXYCONTIN) PO SCH ×2 (09:15→21:31)
[2018-10-23] MEDS: LISINOPRIL 5 MG TAB PO SCH (09:15)
[2018-10-23] MEDS: PANTOprazole 40 MG TAB PO SCH (09:15)
[2018-10-23] MEDS: VENLAFAXINE HCL XR 150 MG CAPXR PO SCH (09:15)
[2018-10-23] MEDS: MICONAZOLE NITRATE POWDER 43 GM EXT SCH ×2 (09:16→21:31)
[2018-10-23] MEDS: LORATADINE 10 MG TAB PO SCH (09:16)
[2018-10-23] MEDS: ASPIRIN 81 MG ECTAB PO SCH ×2 (09:16→21:31)
[2018-10-23] MEDS: DICLOFENAC SOD 1% GEL 100 GM TUBE EXT SCH ×3 (09:17→21:30)
[2018-10-23] MEDS ORDERED: LACTULOSE SYRUP 30 GM/45 ML UDP PO ONE (14:00)
--- NOTE | 2018-10-23 16:49 | Hospitalist Progress Note ---
Date of Service October 23, 2018 Assessment & Plan (1) Closed right hip fracture: - Osteoporosis with current pathological fracture of R greater trochanter - Following fall at home on 10/15; CT showed acute comminuted fracture involving greater trochanter of the right hip. - Pain control: home Oxycontin 30 mg BID; Oxycodone and Morphine PRN breakthrough pain. - Continue bowel regimen - will trial Lactulose - DVT prophylaxis - ASA 81 mg BID - can continue for now but may need to adjust pending need for intervention of hematoma - PT/OT evaluation - appreciate ongoing assessment and allow her to continue to move/ambulate- planning on rehab on D/C vs home - Orthopedics consulted - - recommend conservative care; weightbearing as tolerated; no hip abduction x 6 weeks; compression bandage to R leg/knee; F/U in 2-4 weeks from injury (2) Skin tear of left hand without complication: - No signs of infection at this time and site improving from admission but will need BID dressing changes per wound care recommendations - Wound care consulted for evaluation/recommendations (3) Hematoma of right lower extremity: - Pain control as noted above; one blister (lateral) ruptured and now scabbed over with eschar; medial blister seems to have deflated, hematoma size remains stable - U/S confirms hematoma - per Orthopedics no direct indication for intervention from his perspective but could lead to a wound management issue - will consult wound care provider to evaluate for possible debridement/evacuation vs conservative management - Wound care following (4) Fall: - Was likely a mechanical fall; no indication for further work up; however does have a H/O vertigo - Lives at home with her daughter, has home health aid. - Not completely certain of discharge plan. Patient did give another option for rehab as she appears a little unsure if home is the right choice but I feel she is afraid to be a burden on people and is hesitant to make a decision (5) Left bundle branch block: - New LBBB noted on EKG. - Echo showed EF 55-60%, mild LVH, focal thickening of the basal septum, grade I diastolic dysfunction. - Recommended decrease of Lisinopril to 5 mg daily - Consulted cardiology - no invasive work-up at this time; no ACS symptoms (6) Chronic diastolic heart failure: - Echo showed EF 55-60%, grade I diastolic dysfunction; no signs of decompensation at this time - Monitor net I/Os and daily weights. - Continue home Lisinopril - reducing dose as noted above. (7) Aortic stenosis: - Echo showed moderate aortic stenosis. - Avoid hypotension -- decreasing dose of Lisinopril to 5 mg daily. (8) Dyslipidemia: - Continue home statin & aspirin. (9) Hypothyroid: - Continue home Levothyroxine 50 mcg daily. - Most recent TSH was 0.9 in January 2018. (10) HTN (hypertension): - Decrease ACEI to 5 mg daily.; daughter is concerned of the rising blood pressure which could be multifactorial with pain and stress and she does take chronic steroids however seems with better pain control the BP is improving - patient also admits to some white coat syndrome -- Could consider returning to the BID dosing and monitoring but will hold for now - Avoid episodes of hypotension (11) Depression: - Continue Effexor 150 mg daily (12) Chronic back pain: - Continue home Oxycontin 30 mg BID - Oxycodone and Morphine prn breakthrough pain. - Continue home Prednisone 5 mg daily; stress dose steroids not indicated. (13) Uterine fibroid: - 3 cm uterine fibroid vs. ovarian lesion on CT pelvis. - Will need follow up imaging as outpatient. (14) GERD (gastroesophageal reflux disease): - Continue home Protonix and Zantac. (15) Glaucoma: - Will need to bring eye drops in from home. (16) Anemia: - Acute blood loss anemia secondary to blood loss from fracture and large hematoma - Hemoglobin reduced from baseline but stable; baseline ~13-14. - Will continue to monitor. (17) DVT prophylaxis: - Aspirin BID Disposition: Patient to make decision on home vs rehab; now with need to explore this hematoma may prolong admission Subjective Reports she is doing well and slowly doing a little bit more with therapy which she is more optimistic about. Still no bowel movement and will do another of Lactulose as she is hesitant to be more aggressive about it. There is some other PRNs ordered. She does not feel stomach discomfort or bloating. Is passing flatus and belly is soft. Constitutional: + weakness (slightly improves each day); no fever and no chills Respiratory: no cough and no dyspnea Cardiovascular: no chest pain Gastrointestinal: + constipation; no abdominal pain, no nausea, no vomiting and no diarrhea/loose stools Genitourinary (Female): + urinary incontinence; no dysuria Musculoskeletal: + joint pain (mostly of R hip but improving), + stiffness (R shoulder - slightly improved ROM ) and + problem reported (intermittent muscle spasm of R hip) Integumentary: + lesions (on left hand and right knee ) and + wounds Physical Exam Vital Signs (Past 24 Hours): Last Vital Signs Temp 36.7 C 10/23/18 15:12 Pulse 75 10/23/18 15:12 Resp 16 10/23/18 15:12 BP 134/73 10/23/18 15:12 Pulse Ox 95 10/23/18 15:12 Constitutional: WD/WN, vitals as above no acute distress Eyes: + anicteric sclerae ENMT: Ears: no hearing impairment Neck: trachea midline Respiratory: normal respiratory effort, lungs clear to auscultation Cardiovascular: Rate/Rhythm: regular rate and regular rhythm Gastrointestinal (Abdomen): Inspection/Auscultation: normal bowel sounds Percussion/Palpation: abdomen soft; abdomen nontender Musculoskeletal: Head/Neck/Chest: normocephalic and neck supple Extremities: no cyanosis and no clubbing Skin: Trauma: + evidence of skin trauma (Large L hand skin tear with red/yellow base with purpling of tissue ends) Neurologic: moves all extremities Psychiatric: A+Ox3, euthymic affect (1) Skin tear of left hand without complication Encounter type: initial encounter Qualified Code(s): S61.412A - Laceration without foreign body of left hand, initial encounter (2) Hematoma of right lower extremity Encounter type: initial encounter Qualified Code(s): S80.11XA - Contusion of right lower leg, initial encounter (3) Fall Encounter type: initial encounter Qualified Code(s): W19.XXXA - Unspecified fall, initial encounter (4) Closed right hip fracture Encounter type: initial encounter Qualified Code(s): S72.001A - Fracture of unspecified part of neck of right femur, initial encounter for closed fracture
[2018-10-23] MEDS: DOCUSATE SODIUM/SENNA 50/8.6MG TAB PO SCH (21:31)
[2018-10-23] MEDS: SIMVASTATIN 20 MG TAB PO SCH (21:31)
[2018-10-24 06:05] LABS: Hematocrit (blood only) 25.9 % (37-47); Hemoglobin 8.8 g/dL (12.0-16.0); Mean Corpuscular Volume 94.9 fL (80-100); Mean Platelet Volume 8.9 fL (7.4-10.4); Platelet Count 255 K/uL (130-400); RDW Coefficient of Variation 14.6 % (11.5-14.5); RDW Standard Deviation 50.1 fL (36.4-46.3); Red Blood Count 2.73 M/uL (4.2-5.4); White Blood Count 8.88 K/uL (4.8-10.8)
[2018-10-24] MEDS: LEVOTHYROXINE SODIUM 50 MCG TABLET PO SCH (06:34)
[2018-10-24 06:41] LABS: BUN Creatinine Ratio 23.2 (10-20); Calcium 7.8 mg/dl (8.5-10.1); Creatinine Clr Calc Pharmacy 61.8 ml/min; Est GFR (African American) 102.2; Est GFR (Non-African American) 88.2; Magnesium 1.4 mg/dl (1.8-2.4); Potassium 4.4 mmol/L (3.5-5.1)
[2018-10-24] MEDS: OXYCODONE HCL IR 5 MG TAB (IMMEDIATE RELEASE) PO PRN (07:47)
[2018-10-24] MEDS: predniSONE 5 MG TAB PO SCH (08:53)
[2018-10-24] MEDS: PANTOprazole 40 MG TAB PO SCH (08:53)
[2018-10-24] MEDS: ASPIRIN 81 MG ECTAB PO SCH (08:54)
[2018-10-24] MEDS: LORATADINE 10 MG TAB PO SCH (08:54)
[2018-10-24] MEDS: MICONAZOLE NITRATE POWDER 43 GM EXT SCH ×2 (08:54→21:06)
[2018-10-24] MEDS: VENLAFAXINE HCL XR 150 MG CAPXR PO SCH (08:54)
[2018-10-24] MEDS: OXYCODONE HCL 15 MG TABCR (OXYCONTIN) PO SCH ×2 (08:57→21:04)
[2018-10-24] MEDS: LISINOPRIL 5 MG TAB PO SCH (08:59)
[2018-10-24] MEDS: DICLOFENAC SOD 1% GEL 100 GM TUBE EXT SCH ×3 (09:00→21:06)
[2018-10-24] MEDS: MAGNESIUM OXIDE 400 MG TAB PO SCH ×2 (09:41→21:04)
[2018-10-24 12:22] LABS: Hematocrit (blood only) 27.6 % (37-47); Hemoglobin 9.3 g/dL (12.0-16.0)
[2018-10-24] MEDS ORDERED: SOD PHOSPHATE/SOD BIPHOSPHATE ENEMA 132 ML BTL PR STA (14:14)
[2018-10-24] MEDS ORDERED: METHYLNALTREXONE BROMIDE 12 MG/0.6 ML VIAL SQ ONE (14:45)
[2018-10-24] MEDS: ONDANSETRON INJ 2 MG/ML 2 ML VIAL IV PRN (14:45)
--- NOTE | 2018-10-24 19:23 | Hospitalist Progress Note ---
Date of Service October 24, 2018 Assessment & Plan (1) Closed right hip fracture: - Osteoporosis with current pathological fracture of R greater trochanter - Following fall at home on 10/15; CT showed acute comminuted fracture involving greater trochanter of the right hip. - Pain control: home Oxycontin 30 mg BID; Oxycodone and Morphine PRN breakthrough pain. - Continue bowel regimen - Relistor x 1 on 10/24 and fleet with bowel movement produced - continue with PRN medications - DVT prophylaxis - ASA 81 mg BID - however did put a hold for now until wound provider evaluates for possible intervention as may even be contributing to increased bruising - Lower extremity is shinier and slightly increased edema - could consider U/S to R/O DVT development - PT/OT evaluation - appreciate ongoing assessment and allow her to continue to move/ambulate- planning on rehab on D/C vs home - Orthopedics consulted - - recommend conservative care; weightbearing as tolerated; no hip abduction x 6 weeks; compression bandage to R leg/knee; F/U in 2-4 weeks from injury (2) Skin tear of left hand without complication: - No signs of infection at this time and site improving from admission but will need BID dressing changes per wound care recommendations - Wound care consulted for evaluation/recommendations (3) Hematoma of right lower extremity: - Pain control as noted above; one blister (lateral) ruptured and now scabbed over with eschar; medial blister seems to have deflated but some mild fluid still underskin, hematoma size remains stable - U/S confirms hematoma - per Orthopedics no direct indication for intervention from his perspective but could lead to a wound management issue - will consult wound care provider to evaluate for possible debridement/evacuation vs conservative management - wound provider consult placed but not available over weekend - Still no signs of infection, no leukocytosis, and no fever - Wound care following (4) Fall: - Was likely a mechanical fall; no indication for further work up; however does have a H/O vertigo - Lives at home with her daughter, has home health aid. - Not completely certain of discharge plan. Patient did give another option for rehab as she appears a little unsure if home is the right choice but I feel she is afraid to be a burden on people and is hesitant to make a decision (5) Left bundle branch block: - New LBBB noted on EKG. - Echo showed EF 55-60%, mild LVH, focal thickening of the basal septum, grade I diastolic dysfunction. - Recommended decrease of Lisinopril to 5 mg daily - Consulted cardiology - no invasive work-up at this time; no ACS symptoms (6) Chronic diastolic heart failure: - Echo showed EF 55-60%, grade I diastolic dysfunction; no signs of decompensation at this time - Monitor net I/Os and daily weights. - Continue home Lisinopril - reducing dose as noted above. (7) Aortic stenosis: - Echo showed moderate aortic stenosis. - Avoid hypotension -- decreased dose of Lisinopril to 5 mg daily. (8) Dyslipidemia: - Continue home statin & aspirin. (9) Hypothyroid: - Continue home Levothyroxine 50 mcg daily. - Most recent TSH was 0.9 in January 2018. (10) HTN (hypertension): - Decrease ACEI to 5 mg daily.; daughter is concerned of the rising blood pressure which could be multifactorial with pain and stress and she does take chronic steroids however seems with better pain control the BP is improving - patient also admits to some white coat syndrome -- Could consider returning to the BID dosing and monitoring but will hold for now - Avoid episodes of hypotension (11) Depression: - Continue Effexor 150 mg daily (12) Chronic back pain: - Continue home Oxycontin 30 mg BID - Oxycodone and Morphine prn breakthrough pain. - Continue home Prednisone 5 mg daily; stress dose steroids not indicated. - Also has chronic shoulder stiffness/pain with previous rotator cuff tear/repair - using Voltaren which seems to help some and slowing increase ROM (13) Uterine fibroid: - 3 cm uterine fibroid vs. ovarian lesion on CT pelvis. - Will need follow up imaging as outpatient. (14) GERD (gastroesophageal reflux disease): - Continue home Protonix and Zantac. (15) Glaucoma: - Continue home eye drops (16) Anemia: - Acute blood loss anemia secondary to blood loss from fracture and large hematoma - Hemoglobin reduced from baseline but stable; baseline ~13-14. - Will continue to monitor. (17) DVT prophylaxis: - Aspirin BID temporarily on hold until wound provider assessment Disposition: Patient to make decision on home vs rehab; now with need to explore this hematoma may prolong admission -- Daughter would like update from someone in regards to what wound plan would be Subjective States she is a little more fatigued today and starting to feel more bloated due to lack of BM. Did utilize Relistor and a fleet and did produce a bowel movement. Starting to get some increased ecchymosis superior to the large medial hematoma. Awaiting wound provider assessment for intervention She does report some increased edema of RLE She is tolerating her diet and reports pain is doing better and pain medication is helping. Na is lower today and did encourage good intake of food/solutes, will recheck tomorrow She verbalizes no other complaints. Updated daughter at bedside today. Constitutional: + fatigue and + weakness; no fever and no chills Respiratory: no cough and no dyspnea Cardiovascular: + edema; no chest pain, no palpitations and no lightheadedness Gastrointestinal: + constipation; no abdominal pain, no nausea, no vomiting and no diarrhea/loose stools Genitourinary (Female): no dysuria Musculoskeletal: + joint pain (mostly of R hip but improving), + stiffness (R shoulder - slightly improved ROM ) and + problem reported (intermittent muscle spasm of R hip) Integumentary: + lesions (on left hand and right knee ) and + wounds Physical Exam Vital Signs (Past 24 Hours): Last Vital Signs Temp 36.6 C 10/24/18 15:06 Pulse 63 10/24/18 15:06 Resp 16 10/24/18 15:06 BP 131/60 10/24/18 15:06 Pulse Ox 91 10/24/18 15:06 Constitutional: WD/WN, vitals as above no acute distress Eyes: + anicteric sclerae ENMT: Ears: no hearing impairment Neck: trachea midline Respiratory: normal respiratory effort, lungs clear to auscultation Cardiovascular: Rate/Rhythm: regular rate and regular rhythm Gastrointestinal (Abdomen): Inspection/Auscultation: normal bowel sounds Percussion/Palpation: abdomen soft; abdomen nontender Musculoskeletal: Head/Neck/Chest: normocephalic and neck supple Extremities: no cyanosis and no clubbing large medial hematoma with depressed fluid/blood blister on surface; shiny skin distally to hematoma with ecchymosis; increasing ecchymosis superior to the knee Skin: Trauma: + evidence of skin trauma (Large L hand skin tear with re d/yellow base with purpling of tissue ends) Neurologic: moves all extremities Psychiatric: A+Ox3, euthymic affect (1) Skin tear of left hand without complication Encounter type: initial encounter Qualified Code(s): S61.412A - Laceration without foreign body of left hand, initial encounter (2) Hematoma of right lower extremity Encounter type: initial encounter Qualified Code(s): S80.11XA - Contusion of right lower leg, initial encounter (3) Fall Encounter type: initial encounter Qualified Code(s): W19.XXXA - Unspecified fall, initial encounter (4) Closed right hip fracture Encounter type: initial encounter Qualified Code(s): S72.001A - Fracture of unspecified part of neck of right femur, initial encounter for closed fracture
[2018-10-24] MEDS: SIMVASTATIN 20 MG TAB PO SCH (21:05)
[2018-10-24] MEDS: DOCUSATE SODIUM/SENNA 50/8.6MG TAB PO SCH (21:05)
[2018-10-25] MEDS: LEVOTHYROXINE SODIUM 50 MCG TABLET PO SCH (05:37)
[2018-10-25 05:48] LABS: Hematocrit (blood only) 24.7 % (37-47); Hemoglobin 8.3 g/dL (12.0-16.0); Mean Corpuscular Hgb Conc 33.6 g/dL (32-36); Mean Corpuscular Volume 94.6 fL (80-100); Mean Platelet Volume 8.6 fL (7.4-10.4); Platelet Count 268 K/uL (130-400); RDW Coefficient of Variation 14.7 % (11.5-14.5); Red Blood Count 2.61 M/uL (4.2-5.4); White Blood Count 8.98 K/uL (4.8-10.8)
[2018-10-25] MEDS: OXYCODONE HCL IR 5 MG TAB (IMMEDIATE RELEASE) PO PRN ×2 (05:53→11:28)
[2018-10-25 06:18] LABS: BUN Creatinine Ratio 23.3 (10-20); Calcium 7.6 mg/dl (8.5-10.1); Creatinine Clr Calc Pharmacy 59.9 ml/min; Est GFR (African American) 101.2; Est GFR (Non-African American) 87.3; Potassium 3.8 mmol/L (3.5-5.1)
[2018-10-25] MEDS: LORATADINE 10 MG TAB PO SCH (08:28)
[2018-10-25] MEDS: MICONAZOLE NITRATE POWDER 43 GM EXT SCH ×2 (08:29→20:40)
[2018-10-25] MEDS: MAGNESIUM OXIDE 400 MG TAB PO SCH ×2 (08:32→20:42)
[2018-10-25] MEDS: VENLAFAXINE HCL XR 150 MG CAPXR PO SCH (08:32)
[2018-10-25] MEDS: OXYCODONE HCL 15 MG TABCR (OXYCONTIN) PO SCH ×2 (08:32→20:41)
[2018-10-25] MEDS: LISINOPRIL 5 MG TAB PO SCH (08:33)
[2018-10-25] MEDS: predniSONE 5 MG TAB PO SCH (08:33)
[2018-10-25] MEDS: DICLOFENAC SOD 1% GEL 100 GM TUBE EXT SCH ×3 (08:33→20:43)
[2018-10-25] MEDS: PANTOprazole 40 MG TAB PO SCH (08:33)
[2018-10-25] MEDS: MoRPHine SULFATE 2 MG/ML CARP IV PRN (12:09)
[2018-10-25] MEDS: cephALEXin 500 MG CAP PO SCH ×3 (14:38→21:33)
--- NOTE | 2018-10-25 15:22 | Wound Consultation ---
Date of Consultation October 25, 2018 Assessment & Plan (1) Hematoma of right lower extremity: Patient with a large hematoma on her right lower extremity. Pressure will start to cause necrosis of the skin and the wound was started open on its own. My opinion wound needed debridement. After obtaining permission topical Xylocaine was applied. Wound was then further anesthetized with 10 cc of lidocaine. Using a #11 blade, hematoma incised and evacuated. Wound was copiously irrigated with saline. Patient tolerated the procedure well with no complications. Would recommend a 3-day course of Keflex as prophylaxis. Wound will be packed with Aquacel Ag and covered with nonadhesive foam. I will reevaluate the wound tomorrow. Thank you for allowing me to participate in the care of this patient. Please not hesitate to call with any further questions. Present on Admission?: Yes (2) Fall: History of Present Illness Attending Physician: Kayla Ba MD This is 77-year-old female with a medical history of anemia, aortic stenosis, chronic diastolic heart failure, left bundle branch block, GERD, chronic back pain, hypothyroidism, dyslipidemia, CKD stage III, diabetes mellitus type 2, hypertension and uterine fibroid who had a fall on October 15 and fractured her hip. Orthopedics recommended conservative care. She is weightbearing as tolerated. In the interim she has developed a large hematoma of her right lower extremity causing necrosis of the skin. Allergies Allergy/AdvReac Type Severity Reaction Status Date / Time gabapentin Allergy Severe MOUTH Verified 10/15/18 17:09 SWELLS pregabalin Allergy Severe MOUTH Verified 10/15/18 17:09 SWELLS Home Medications Home Medications Medication Instructions Recorded Confirmed Type aspirin 81 mg PO DAILY 10/15/18 10/15/18 History bupropion HCl 100 mg PO DAILY 10/15/18 10/15/18 History ergocalciferol (vitamin D2) 50,000 unit PO DAILY 10/15/18 10/15/18 History ferrous sulfate 325 mg PO BID 10/15/18 10/15/18 History fluconazole 150 mg PO Q3D 10/15/18 10/15/18 History fluticasone propionate 1 spray INTRANASAL DAILY 10/15/18 10/15/18 History furosemide 20 mg PO QAM PRN 10/15/18 10/15/18 History hydrocodone-acetaminophen 1 tab PO Q6H PRN 10/15/18 10/15/18 History latanoprost 1 drp OPHTHALMIC (EYE) PM 10/15/18 10/15/18 History levothyroxine 50 mcg PO DAILY 10/15/18 10/15/18 History lisinopril 5 mg PO BID 10/15/18 10/15/18 History loratadine 10 mg PO DAILY 10/15/18 10/15/18 History magnesium oxide 400 mg PO BID 10/15/18 10/15/18 History meclizine 25 mg PO TID PRN 10/15/18 10/15/18 History nc-hfi-[id number] acid-lutein [Centrum 1 tab PO DAILY 10/15/18 10/15/18 History Silver] nystatin-triamcinolone 1 applic TOPICAL BID 10/15/18 10/15/18 History oxybutynin chloride 5 mg PO HS 10/15/18 10/15/18 History oxycodone [OxyContin] 30 mg PO Q12H 10/15/18 10/15/18 History pantoprazole 40 mg PO DAILY 10/15/18 10/15/18 History polyethylene glycol 3350 17 g PO DAILY 10/15/18 10/15/18 History potassium chloride 10 meq PO DAILY 10/15/18 10/15/18 History prednisolone 5 mg PO DAILY 10/15/18 10/15/18 History ranitidine HCl 150 mg PO HS 10/15/18 10/15/18 History riboflavin (vitamin B2) 100 mg PO DAILY 10/15/18 10/15/18 History sennosides [senna] 8.6 mg PO BID 10/15/18 10/15/18 History simvastatin 20 mg PO HS 10/15/18 10/15/18 History venlafaxine 150 mg PO DAILY 10/15/18 10/15/18 History Patient History Medical History Osteoarthritis (Chronic) Depression (Chronic) Dyslipidemia (Chronic) Hypothyroid (Chronic) CKD (chronic kidney disease), stage III (Chronic) Diabetes mellitus type 2, diet-controlled (Chronic) Diabetic neuropathy (Chronic) HTN (hypertension) (Chronic) KENIA (iron deficiency anemia) (Chronic) Rectal prolapse (Chronic) "s/p repair" Rectocele (Chronic) "s/p repair" Gastric ulcer (Chronic) Surgical History H/O shoulder surgery (Chronic) H/O umbilical hernia repair (Chronic) Family History Father Family history non-contributory Social History Communication Ability: Effective Beliefs That Will Affect Care: None Current Living Situation: Spouse Current Living Situation Comment: Caregiver in AM, daughter at home from 899- [phone] Other Information That Helps Us Care for You: Yes (Pt likely will not ring, does not want to be a bother) Feels Safe at Home: Yes Safety Concerns: Feels Safe At This Time Smoking Status: Former smoker Hx Alcohol Use: No Hx Substance Use: No Review of Systems 10 point review of systems is negative except per HPI Physical Exam Vital Signs (Past 24 Hours): Last Vital Signs Temp 36.8 C 10/25/18 06:50 Pulse 89 10/25/18 06:50 Resp 18 10/25/18 06:50 BP 174/86 H 10/25/18 06:50 Pulse Ox 94 10/25/18 06:50 Constitutional: WD/WN, vitals as above Eyes: PERRL, conjunctivae normal, anicteric sclerae ENMT: Hearing grossly intact Skin: Hematoma of her right anterior leg measuring 11 x 9.5 x 1.3. Skin is dark blue to black. Wound is starting to open up and ooze blood. Wound is fluctuant Neurologic: awake; not confused Psychiatric: A+Ox3, euthymic affect (1) Hematoma of right lower extremity Encounter type: initial encounter Qualified Code(s): S80.11XA - Contusion of right lower leg, initial encounter (2) Fall Encounter type: initial encounter Qualified Code(s): W19.XXXA - Unspecified fall, initial encounter
--- NOTE | 2018-10-25 16:48 | Hospitalist Progress Note ---
Date of Service October 25, 2018 Assessment & Plan (1) Closed right hip fracture: - Osteoporosis with current fracture of R greater trochanter - Following fall at home on 10/15; CT showed acute comminuted fracture involving greater trochanter of the right hip. - Pain control: home Oxycontin 30 mg BID; Oxycodone and Morphine prn. - Continue bowel regimen - Relistor x 1 and fleet required on 10/24; continue Sennakot 2 tab qhs scheduled. - DVT prophylaxis - currently holding Aspirin 81 mg BID due to drainage of large hematoma, will likely restart prior to discharge. - PT/OT - her daughter would prefer to discharge to home; multiple discussions have been held regarding rehab placement. - Orthopedics consulted - - recommend conservative care; weightbearing as tolerated; no hip abduction x 6 weeks; compression bandage to R leg/knee; F/U in 2-4 weeks from injury. (2) Skin tear of left hand without complication: - No signs of infection at this time; will need BID dressing changes at discharge. - Wound care consulted, appreciate input. (3) Hematoma of right lower extremity: - Wound care consulted, s/p drainage of hematoma this afternoon. - Will need weekly follow up in the wound clinic along with home shelter every other day. - Start Keflex for a 3 day course for prophylaxis. No evidence of infection noted. (4) Fall: - Was likely a mechanical fall; no indication for further work up. - H/o vertigo ~18 months ago, did not likely contribute to recent fall. - Lives at home with her daughter with home health aid support. - Will be discharged to SNF ([facility]) vs. home pending decision by patient/daughter tomorrow. (5) Left bundle branch block: - New LBBB noted on EKG. - Echo showed EF 55-60%, mild LVH, focal thickening of the basal septum, grade I diastolic dysfunction. - Consulted cardiology - no invasive work-up at this time; no ACS symptoms. (6) Chronic diastolic heart failure: - Echo showed EF 55-60%, grade I diastolic dysfunction; no signs of decompensation at this time - Monitor net I/Os and daily weights. - Continue home ACEI. (7) Aortic stenosis: - Echo showed moderate aortic stenosis. - Avoid hypotension. (8) Dyslipidemia: - Continue home statin; holding aspirin in setting of drainage of large hematoma. (9) Hypothyroid: - Continue home Levothyroxine 50 mcg daily. - Most recent TSH was 0.9 in January 2018. (10) HTN (hypertension): - Decreased ACEI to 5 mg daily to avoid hypotension. - BP now rising -- may be related to stress/pain and chronic steroids. - Pt. also reports mild white coat syndrome. - Will continue current dose of Lisinopril and monitor. (11) Depression: - Continue Effexor 150 mg daily (12) Chronic back pain: - Continue home Oxycontin 30 mg BID - Oxycodone and Morphine prn breakthrough pain. - Continue home Prednisone 5 mg daily. - Also has chronic shoulder stiffness/pain with previous rotator cuff tear/repair - using Voltaren which seems to help some and slowing increase ROM. (13) Uterine fibroid: - 3 cm uterine fibroid vs. ovarian lesion on CT pelvis. - Will need follow up imaging as outpatient. (14) GERD (gastroesophageal reflux disease): - Continue home Protonix and Zantac. (15) Glaucoma: - Continue home eye drops (16) Anemia: - Acute blood loss anemia secondary to blood loss from fracture and large hematoma - Hemoglobin remains decreased but not requiring transfusion support; baseline ~13-14. (17) Hyponatremia: - Na level decreased to 129; baseline Na level is >132. - Unclear etiology -- will order urine Na and Osmo, serum osmo in AM (to avoid repeat blood draw today and obtain testing at same time) - Not currently on medications that may lead to SIADH. - Monitor Na level qAM. (18) DVT prophylaxis: - Holding Aspirin. Disposition: Discharge to [facility] ([facility]) vs. home with home health on 10/26/18 pending pain control. Supervising Physician Co-Signing Physician Notes PA Supervision Note: I did not personally see or examine the patient today, but I verified all mcgarry points of GILDARDO Grover's assessment and plan with the following exceptions/additions: None Subjective Pt. is doing well overall. She has pain in the right knee and left hand -- pain in the right knee is increased with standing/working with PT. Wound care evaluated right leg hematoma and drained hematoma. Pt. will need aggressive wound care at home, likely every other day with shelter, along with weekly wound clinic appointments. PT/OT both recommending rehab -- her daughter is very resistant to the concept of rehab due to her mother's previous experience at [facility]. She feels comfortable caring for her mother at home. The occupational therapist was in the room during rounds today and reiterated the level of care/assistance her mother has been requiring. Her daughter continued to request discharge to home unless we were able to find a SNF close to the [facility]. Pt. is currently only accepted to [facility] [place] in [place], [place]. Will monitor for pain over next 24 hours following hematoma drainage and likely discharge on 10/26/18. Review of Systems All systems reviewed & are unremarkable except as noted in HPI & below Constitutional: + fatigue and + weakness; no fever and no chills Respiratory: no cough and no dyspnea Cardiovascular: + edema (Right lower extremity edema); no chest pain and no palpitations Gastrointestinal: no abdominal pain, no nausea and no constipation Genitourinary (Female): no difficulty urinating Musculoskeletal: + joint pain (Right knee, left hand) Integumentary: + non-healing lesions (Right knee hematoma, various lesions on right knee and left hand. ) Allergy / Immunological: no rash Physical Exam Vital Signs (Past 24 Hours): Last Vital Signs Temp 36.4 C L 10/25/18 16:09 Pulse 87 10/25/18 16:09 Resp 16 10/25/18 16:09 BP 153/72 H 10/25/18 16:09 Pulse Ox 96 10/25/18 16:09 Physical Exam: General: Resting comfortably in no apparent distress; A&OX3 HEENT: NC/AT; PERRLA with EOMI; [place] conjunctiva, MMM. Neck: Supple and nontender Cardiac: RRR w/o murmurs, gallops or rubs2 Lungs: CTA bilaterally; No rhonchi, wheezing, or rales Abdomen: Bowel normoactive X 4; Nontender to palpation Extremities: Warm. +1-2 RLE edema distal to the hematoma site. Neuro: No focal weakness Skin: Mutliple skin trauma areas -- Left hand skin tear (did not visualize today) and open areas noted on right knee. Large medial hematoma was drained today. Results & Data Laboratory Results 10/25/18 10/25/18 Range/Units 05:17 05:17 WBC 8.98 (4.8-10.8) K/uL RBC 2.61 L (4.2-5.4) M/uL Hgb 8.3 L (12.0-16.0) g/dL Hct 24.7 L (37-47) % MCV 94.6 (80-100) fL MCH 31.8 (25-34) pg MCHC 33.6 (32-36) g/dL RDW Std Deviation 50.0 H (36.4-46.3) fL RDW Coeff of Moi 14.7 H (11.5-14.5) % Plt Count 268 (130-400) K/uL MPV 8.6 (7.4-10.4) fL Sodium 129 L (136-145) mmol/L Potassium 3.8 (3.5-5.1) mmol/L Chloride 93 L (98-107) mmol/L Carbon Dioxide 31 (21-32) mmol/L Anion Gap 5.0 (3-11) BUN 15 (7-18) mg/dl Creatinine 0.64 (0.6-1.2) mg/dl Est Cr Clr Drug Dosing 59.9 ml/min Est GFR ( Amer) 101.2 Est GFR (Non-Af Amer) 87.3 BUN/Creatinine Ratio 23.3 H (10-20) Glucose 81 (70-99) mg/dl Calcium 7.6 L (8.5-10.1) mg/dl (1) Skin tear of left hand without complication Encounter type: initial encounter Qualified Code(s): S61.412A - Laceration without foreign body of left hand, initial encounter (2) Hematoma of right lower extremity Encounter type: initial encounter Qualified Code(s): S80.11XA - Contusion of right lower leg, initial encounter (3) Fall Encounter type: initial encounter Qualified Code(s): W19.XXXA - Unspecified fall, initial encounter (4) Closed right hip fracture Encounter type: initial encounter Qualified Code(s): S72.001A - Fracture of unspecified part of neck of right femur, initial encounter for closed fracture
[2018-10-25] MEDS: SIMVASTATIN 20 MG TAB PO SCH (20:42)
[2018-10-25] MEDS: DOCUSATE SODIUM/SENNA 50/8.6MG TAB PO SCH (21:33)
[2018-10-26 05:53] LABS: Hematocrit (blood only) 25.6 % (37-47); Hemoglobin 8.6 g/dL (12.0-16.0); Mean Corpuscular Hgb Conc 33.6 g/dL (32-36); Mean Corpuscular Volume 95.2 fL (80-100); Mean Platelet Volume 8.8 fL (7.4-10.4); Platelet Count 297 K/uL (130-400); RDW Standard Deviation 50.6 fL (36.4-46.3); Red Blood Count 2.69 M/uL (4.2-5.4); White Blood Count 9.45 K/uL (4.8-10.8)
[2018-10-26] MEDS: LEVOTHYROXINE SODIUM 50 MCG TABLET PO SCH (05:58)
[2018-10-26] MEDS: OXYCODONE HCL IR 5 MG TAB (IMMEDIATE RELEASE) PO PRN ×2 (06:02→14:36)
[2018-10-26 06:31] LABS: BUN Creatinine Ratio 21.1 (10-20); Calcium 8.1 mg/dl (8.5-10.1); Creatinine Clr Calc Pharmacy 63.9 ml/min; Est GFR (African American) 103.3; Est GFR (Non-African American) 89.2; Magnesium 1.5 mg/dl (1.8-2.4); Potassium 4.1 mmol/L (3.5-5.1)
[2018-10-26] MEDS: OXYCODONE HCL 15 MG TABCR (OXYCONTIN) PO SCH ×2 (09:18→21:07)
[2018-10-26] MEDS: cephALEXin 500 MG CAP PO SCH ×4 (09:18→21:07)
[2018-10-26] MEDS: LORATADINE 10 MG TAB PO SCH (09:18)
[2018-10-26] MEDS: PANTOprazole 40 MG TAB PO SCH (09:18)
[2018-10-26] MEDS: predniSONE 5 MG TAB PO SCH (09:18)
[2018-10-26] MEDS: LISINOPRIL 5 MG TAB PO SCH (09:19)
[2018-10-26] MEDS: VENLAFAXINE HCL XR 150 MG CAPXR PO SCH (09:19)
[2018-10-26] MEDS: MAGNESIUM OXIDE 400 MG TAB PO SCH ×2 (09:19→21:08)
[2018-10-26] MEDS: MICONAZOLE NITRATE POWDER 43 GM EXT SCH ×2 (09:24→21:07)
[2018-10-26] MEDS ORDERED: PHENAZOPYRIDINE HCL 200 MG TAB PO PRN (09:41)
[2018-10-26] MEDS: MAGNESIUM SULFATE / D5W 1 GM/100 ML BAG IV SCH ×2 (10:39→12:01)
[2018-10-26 11:08] LABS: Appearance Urine Cloudy (Clear); Bacteria Urine Automated Negative (Negative); Bilirubin Urine Negative (Negative); Blood Urine Trace (Negative); Cast Urine Automated 0 /lpf (0-5); Color Urine Yellow; Epithelial Cell Urine Auto 0-5 /lpf (0-5); Glucose Urine UA Negative (Negative); Ketones Urine Negative (Negative); Leukocyte Esterase Urine 3+ (Negative); Nitrite Urine Negative (Negative); Protein Urine Negative (Negative); RBC Urine Automated 0-4 /hpf (0-4); Specific Gravity Urine 1.006 (1.000-1.030); Urobilinogen Urine Negative (Negative); WBC Urine Automated >30 /hpf (0-5); pH Urine 7.5 (4.5-7.5)
[2018-10-26] MEDS: DICLOFENAC SOD 1% GEL 100 GM TUBE EXT SCH ×3 (12:14→21:07)
--- NOTE | 2018-10-26 13:25 | Wound Progress Note ---
Date of Service October 26, 2018 Assessment & Plan (1) Hematoma of right lower extremity: Wound does not require any debridement today. Periwound appears mostly viable and is adherent. Wound was irrigated. We will apply Santyl with plain packing to wound bed and cover with OPTifoam. We will see patient in the office Thursday. Thank you for allowing me to participate in the care of this patient. Subjective 77-year-old female with a history of hematoma status post fall. She also had a fractured hip and she is treated conservatively. Hematoma was evacuated yesterday. Patient reports that the dressing was changed last night due to seepage. Wound is being dressed with Aquacel and foam. Patient is on Keflex for prophylaxis. She has no new complaints today. Physical Exam Vital Signs (Past 24 Hours): Last Vital Signs Temp 36.8 C 10/26/18 10:07 Pulse 95 H 10/26/18 10:32 Resp 20 10/26/18 10:32 BP 134/74 10/26/18 10:32 Pulse Ox 95 10/26/18 10:32 Constitutional: WD/WN, vitals as above Respiratory: normal respiratory effort, lungs clear to auscultation Skin: Wound measuring 11 x 9.5 x 1.3 cm. Periwound is attempting to adhere and appears viable. Wound covered with fibrin and remnants of hematoma. Neurologic: awake; not confused Psychiatric: A+Ox3, euthymic affect (1) Hematoma of right lower extremity Encounter type: initial encounter Qualified Code(s): S80.11XA - Contusion of right lower leg, initial encounter
[2018-10-26] MEDS: COLLAGENASE OINT 30 GM TUBE EXT SCH (14:07)
--- NOTE | 2018-10-26 16:47 | Hospitalist Progress Note ---
Date of Service October 26, 2018 Assessment & Plan (1) Closed right hip fracture: - Osteoporosis with current fracture of R greater trochanter - Following fall at home on 10/15; CT showed acute comminuted fracture involving greater trochanter of the right hip. - Pain control: home Oxycontin 30 mg BID; Oxycodone and Morphine prn. - Continue bowel regimen - Relistor x 1 and fleet required on 10/24; continue Sennakot 2 tab qhs scheduled. - DVT prophylaxis - will resume Aspirin 81 mg BID following drainage of hematoma. - PT/OT - plan for placement at [facility] on 10/27/18. - Orthopedics consulted - - recommend conservative care; weightbearing as tolerated; no hip abduction x 6 weeks; compression bandage to R leg/knee; F/U in 2-4 weeks from injury. (2) Skin tear of left hand without complication: - No signs of infection at this time; BID dressing changes. - Wound care consulted, appreciate input. (3) Hematoma of right lower extremity: - Wound care consulted, s/p drainage of hematoma on 10/25/18. - Will need weekly follow up in the wound clinic. - Keflex for a 3 day course for prophylaxis (End date: 10/28 at lunchtime) (4) UTI (urinary tract infection): - U/a positive on 10/23, did not collect UC; developed urinary frequency over last 24 hours. - Repeat u/a also positive, UC pending. - Continue Keflex as noted above. - Pyridium TID prn. (5) Fall: - Was likely a mechanical fall; no indication for further work up. - H/o vertigo ~18 months ago, did not likely contribute to recent fall. - Lives at home with her daughter with home health aid support. - Will be discharged to SNF ([facility]) on 10/27/18. (6) Chest pain: - Developed left sided chest pain this morning -- may be cardiac source vs. anxiety vs. musculoskeletal. - EKG showed known LBBB, no significant changes. - Trop negative; will repeat level x 2. - Plan for discharge on 10/27 if cardiac work up is negative. (7) Left bundle branch block: - New LBBB noted on EKG. - Echo showed EF 55-60%, mild LVH, focal thickening of the basal septum, grade I diastolic dysfunction. - Consulted cardiology - no invasive work-up at this time. (8) Chronic diastolic heart failure: - Echo showed EF 55-60%, grade I diastolic dysfunction; no signs of decompensation at this time - Monitor net I/Os and daily weights. - Continue home ACEI. (9) Aortic stenosis: - Echo showed moderate aortic stenosis. - Avoid hypotension. (10) Dyslipidemia: - Continue home statin and aspirin. (11) Hypothyroid: - Continue home Levothyroxine 50 mcg daily. - Most recent TSH was 0.9 in January 2018. (12) HTN (hypertension): - Decreased ACEI to 5 mg daily to avoid hypotension. - BP now elevated -- may be related to stress/pain. - Pt. also has mild white coat syndrome. - Will continue current dose of Lisinopril. (13) Depression: - Continue Effexor 150 mg daily (14) Chronic back pain: - Continue home Oxycontin 30 mg BID - Oxycodone and Morphine prn breakthrough pain. - Continue home Prednisone 5 mg daily. - Also has chronic shoulder stiffness/pain with previous rotator cuff tear/repair - using Voltaren gel prn. (15) Uterine fibroid: - 3 cm uterine fibroid vs. ovarian lesion on CT pelvis. - Will need follow up imaging as outpatient. (16) GERD (gastroesophageal reflux disease): - Continue home Protonix and Zantac. (17) Glaucoma: - Continue home eye drops (18) Anemia: - Acute blood loss anemia secondary to blood loss from fracture and large hematoma - Hemoglobin remains decreased; baseline ~13-14. (19) Hyponatremia: - Na level trending up. - Not currently on medications that may lead to SIADH. - Monitor Na level qAM. (20) Electrolyte abnormality: - Mag level 1.5 - ordered mag sulfate 2 gm IV. (21) DVT prophylaxis: - Aspirin 81 mg BID. Disposition: Discharge to [facility] ([facility]) on 10/27/18 pending negative cardiac work up; case management following, greatly appreciate their help. Supervising Physician Co-Signing Physician Notes PA Supervision Note: I did not personally see or examine the patient today, but I verified all mcgarry points of GILDARDO Grover's assessment and plan with the following exceptions/additions: None Subjective Pt developed acute left sided chest pain this morning. Chest pain lasted ~2 minutes then turned to a left sided "soreness". Pain is re-producible to palpation. Denies radiation of pain down arm, N/V, SOB, diaphoresis. EKG was unchanged and initial trop was negative. Pt. is very anxious regarding discharge planning -- this may be contributing to symptoms. Plan to monitor over next 24 hours. She had episode of aspiration during breakfast this morning, was changed to minced moist diet. Complains of pain in right knee and hip, unchanged. Last BM was on 10/24, will monitor. She complains of urinary frequency and foul smelling urine -- u/a on 10/23 was positive but UC was not collected. Repeat u/a today also positive. Patient has had a difficult time with discharge decision making -- she has been encouraged by the medical team to be discharged to rehab due to multiple issues including weakness requiring 24 hour support, wound care that will require increased attention along with lack of adequate support at home. Her decision this afternoon was to be dischared to [facility] -- plan to discharge on 10/27/18 pending cardiac work up. Review of Systems All systems reviewed & are unremarkable except as noted in HPI & below Constitutional: + fatigue and + weakness; no fever, no chills and no anorexia Respiratory: no cough, no dyspnea, no dyspnea on exertion and no wheezing Cardiovascular: + chest pain, + chest pain at rest and + chest pain with activity; no radiating jaw, neck or arm pain, no palpitations, no lightheadedness, no syncope and no edema Gastrointestinal: + constipation; no abdominal pain, no nausea and no vomiting Genitourinary (Female): + urinary frequency Musculoskeletal: + joint pain Integumentary: + non-healing lesions Allergy / Immunological: no rash Physical Exam Vital Signs (Past 24 Hours): Last Vital Signs Temp 36.6 C 10/26/18 15:20 Pulse 72 10/26/18 15:20 Resp 18 10/26/18 15:20 BP 150/83 H 10/26/18 15:20 Pulse Ox 94 10/26/18 15:20 Physical Exam: General: Resting comfortably in no apparent distress; pt. appears very anxious. HEENT: NC/AT; PERRLA with EOMI; [place] conjunctiva, MMM. Neck: Supple and nontender Cardiac: RRR w/o murmurs, gallops or rubs; tenderness to light palpation over left side of chest near left upper breast. Lungs: CTA bilaterally Abdomen: Bowel normoactive X 4; Nontender to palpation Extremities: Warm. +1 RLE edema distal to the hematoma site. Neuro: No focal weakness Skin: Mutliple skin trauma areas -- Left hand skin tear and large medial hematoma, now drained. Results & Data Laboratory Results 10/26/18 10/26/18 10/26/18 Range/Units 11:30 10:45 05:50 WBC (4.8-10.8) K/uL RBC (4.2-5.4) M/uL Hgb (12.0-16.0) g/dL Hct (37-47) % MCV (80-100) fL MCH (25-34) pg MCHC (32-36) g/dL RDW Std Deviation (36.4-46.3) fL RDW Coeff of Moi (11.5-14.5) % Plt Count (130-400) K/uL MPV (7.4-10.4) fL Sodium (136-145) mmol/L Potassium (3.5-5.1) mmol/L Chloride (98-107) mmol/L Carbon Dioxide (21-32) mmol/L Anion Gap (3-11) BUN (7-18) mg/dl Creatinine (0.6-1.2) mg/dl Est Cr Clr Drug Dosing ml/min Est GFR ( Amer) Est GFR (Non-Af Amer) BUN/Creatinine Ratio (10-20) Glucose (70-99) mg/dl Osmolality (280-300) mOsm/kg Calcium (8.5-10.1) mg/dl Magnesium (1.8-2.4) mg/dl Troponin I 0.020 (0-0.045) ng/ml Urine Color Yellow Urine Appearance Cloudy H (Clear) Urine pH 7.5 (4.5-7.5) Ur Specific [place] 1.006 (1.000-1.030) Urine Protein Negative (Negative) Urine Glucose (UA) Negative (Negative) Urine Ketones Negative (Negative) Urine Blood Trace H (Negative) Urine Nitrite Negative (Negative) Urine Bilirubin Negative (Negative) Urine Urobilinogen Negative (Negative) Ur Leukocyte Esterase 3+ H (Negative) Urine WBC (Auto) >30 H (0-5) /hpf Urine RBC (Auto) 0-4 (0-4) /hpf U Hyaline Cast (Auto) 0 (0-5) /lpf U Epithel Cells (Auto) 0-5 (0-5) /lpf Urine Bacteria (Auto) Negative (Negative) Urine Osmolality (500-800) mOsm/kg Ur Random Sodium 28 mmol/L 10/26/18 10/26/18 10/26/18 Range/Units 05:50 05:19 05:19 WBC 9.45 (4.8-10.8) K/uL RBC 2.69 L (4.2-5.4) M/uL Hgb 8.6 L (12.0-16.0) g/dL Hct 25.6 L (37-47) % MCV 95.2 (80-100) fL MCH 32.0 (25-34) pg MCHC 33.6 (32-36) g/dL RDW Std Deviation 50.6 H (36.4-46.3) fL RDW Coeff of Moi 15.0 H (11.5-14.5) % Plt Count 297 (130-400) K/uL MPV 8.8 (7.4-10.4) fL Sodium 131 L (136-145) mmol/L Potassium 4.1 (3.5-5.1) mmol/L Chloride 93 L (98-107) mmol/L Carbon Dioxide 35 H (21-32) mmol/L Anion Gap 2.0 L (3-11) BUN 13 (7-18) mg/dl Creatinine 0.60 (0.6-1.2) mg/dl Est Cr Clr Drug Dosing 63.9 ml/min Est GFR ( Amer) 103.3 Est GFR (Non-Af Amer) 89.2 BUN/Creatinine Ratio 21.1 H (10-20) Glucose 73 (70-99) mg/dl Osmolality (280-300) mOsm/kg Calcium 8.1 L (8.5-10.1) mg/dl Magnesium 1.5 L (1.8-2.4) mg/dl Troponin I (0-0.045) ng/ml Urine Color Urine Appearance (Clear) Urine pH (4.5-7.5) Ur Specific [place] (1.000-1.030) Urine Protein (Negative) Urine Glucose (UA) (Negative) Urine Ketones (Negative) Urine Blood (Negative) Urine Nitrite (Negative) Urine Bilirubin (Negative) Urine Urobilinogen (Negative) Ur Leukocyte Esterase (Negative) Urine WBC (Auto) (0-5) /hpf Urine RBC (Auto) (0-4) /hpf U Hyaline Cast (Auto) (0-5) /lpf U Epithel Cells (Auto) (0-5) /lpf Urine Bacteria (Auto) (Negative) Urine Osmolality 179 L (500-800) mOsm/kg Ur Random Sodium mmol/L 10/26/18 Range/Units 05:19 WBC (4.8-10.8) K/uL RBC (4.2-5.4) M/uL Hgb (12.0-16.0) g/dL Hct (37-47) % MCV (80-100) fL MCH (25-34) pg MCHC (32-36) g/dL RDW Std Deviation (36.4-46.3) fL RDW Coeff of Moi (11.5-14.5) % Plt Count (130-400) K/uL MPV (7.4-10.4) fL Sodium (136-145) mmol/L Potassium (3.5-5.1) mmol/L Chloride (98-107) mmol/L Carbon Dioxide (21-32) mmol/L Anion Gap (3-11) BUN (7-18) mg/dl Creatinine (0.6-1.2) mg/dl Est Cr Clr Drug Dosing ml/min Est GFR ( Amer) Est GFR (Non-Af Amer) BUN/Creatinine Ratio (10-20) Glucose (70-99) mg/dl Osmolality 270 L (280-300) mOsm/kg Calcium (8.5-10.1) mg/dl Magnesium (1.8-2.4) mg/dl Troponin I (0-0.045) ng/ml Urine Color Urine Appearance (Clear) Urine pH (4.5-7.5) Ur Specific [place] (1.000-1.030) Urine Protein (Negative) Urine Glucose (UA) (Negative) Urine Ketones (Negative) Urine Blood (Negative) Urine Nitrite (Negative) Urine Bilirubin (Negative) Urine Urobilinogen (Negative) Ur Leukocyte Esterase (Negative) Urine WBC (Auto) (0-5) /hpf Urine RBC (Auto) (0-4) /hpf U Hyaline Cast (Auto) (0-5) /lpf U Epithel Cells (Auto) (0-5) /lpf Urine Bacteria (Auto) (Negative) Urine Osmolality (500-800) mOsm/kg Ur Random Sodium mmol/L (1) Skin tear of left hand without complication Encounter type: initial encounter Qualified Code(s): S61.412A - Laceration without foreign body of left hand, initial encounter (2) Hematoma of right lower extremity Encounter type: initial encounter Qualified Code(s): S80.11XA - Contusion of right lower leg, initial encounter (3) Fall Encounter type: initial encounter Qualified Code(s): W19.XXXA - Unspecified fall, initial encounter (4) Closed right hip fracture Encounter type: initial encounter Qualified Code(s): S72.001A - Fracture of unspecified part of neck of right femur, initial encounter for closed fracture
[2018-10-26] MEDS: ASPIRIN 81 MG ECTAB PO SCH (21:06)
[2018-10-26] MEDS: DOCUSATE SODIUM/SENNA 50/8.6MG TAB PO SCH (21:08)
[2018-10-26] MEDS: SIMVASTATIN 20 MG TAB PO SCH (21:09)
[2018-10-27] MEDS: OXYCODONE HCL IR 5 MG TAB (IMMEDIATE RELEASE) PO PRN ×2 (00:21→09:00)
[2018-10-27 05:55] LABS: Hematocrit (blood only) 25.1 % (37-47); Hemoglobin 8.3 g/dL (12.0-16.0); Mean Corpuscular Hgb Conc 33.1 g/dL (32-36); Mean Corpuscular Volume 95.8 fL (80-100); Mean Platelet Volume 8.7 fL (7.4-10.4); Platelet Count 299 K/uL (130-400); RDW Coefficient of Variation 15.3 % (11.5-14.5); RDW Standard Deviation 52.2 fL (36.4-46.3); Red Blood Count 2.62 M/uL (4.2-5.4)
[2018-10-27] MEDS: LEVOTHYROXINE SODIUM 50 MCG TABLET PO SCH (05:55)
[2018-10-27 06:21] LABS: BUN Creatinine Ratio 21.5 (10-20); Calcium 8.1 mg/dl (8.5-10.1); Creatinine Clr Calc Pharmacy 61.8 ml/min; Est GFR (African American) 102.2; Est GFR (Non-African American) 88.2; Potassium 4.2 mmol/L (3.5-5.1)
[2018-10-27 07:26] VITALS: BP 162/78; PULSE 72; TEMP 97.7; O2SAT 96
[2018-10-27] MEDS: cephALEXin 500 MG CAP PO SCH (08:59)
[2018-10-27] MEDS: MAGNESIUM OXIDE 400 MG TAB PO SCH (08:59)
[2018-10-27] MEDS: PANTOprazole 40 MG TAB PO SCH (08:59)
[2018-10-27] MEDS: VENLAFAXINE HCL XR 150 MG CAPXR PO SCH (08:59)
[2018-10-27] MEDS: predniSONE 5 MG TAB PO SCH (08:59)
[2018-10-27] MEDS: ASPIRIN 81 MG ECTAB PO SCH (08:59)
[2018-10-27] MEDS: LORATADINE 10 MG TAB PO SCH (08:59)
[2018-10-27] MEDS: LISINOPRIL 5 MG TAB PO SCH (08:59)
[2018-10-27] MEDS: OXYCODONE HCL 15 MG TABCR (OXYCONTIN) PO SCH (09:01)
[2018-10-27] MEDS: DICLOFENAC SOD 1% GEL 100 GM TUBE EXT SCH ×2 (09:54→14:07)
[2018-10-27] MEDS: COLLAGENASE OINT 30 GM TUBE EXT SCH (09:55)
[2018-10-27] MEDS: MICONAZOLE NITRATE POWDER 43 GM EXT SCH (09:55)
--- NOTE | 2018-10-27 11:07 | Progress Note ---
DATE: 10/27/2018 SUBJECTIVE: A 77-year-old female admitted status post a fall with a right leg hematoma and had greater trochanteric fracture. She seems to be doing okay. Still complaining mostly of leg pain. She has been seen by the wound clinic for debridement of the subcutaneous hematoma. No other complaints. She has been putting some weight on her leg and says it feels okay. OBJECTIVE: VITAL SIGNS: Temperature is 36.5. Vital signs stable. GENERAL: Elderly female. She is sitting in her bedside chair, eating breakfast. EXTREMITIES: Examination of the right lower extremity reveals no obvious deformity. Her leg lengths appeared equal. She does have this hematoma distally, which is also subcutaneous. Her knee incisions healed nicely. There are no signs of knee effusion. She does have a dressing on her leg wound. She has minimal pain with hip motion. She can do a straight leg raise as well as flex her hip. ASSESSMENT: A 77-year-old female admitted status post a fall with a right greater trochanter fracture as well as the leg hematoma. Clinically, she seems to be improving. The wound clinic is managing her right leg hematoma. PLAN: From the orthopedic standpoint, she can weightbear as tolerated. I would recommend no active hip abduction for about 6 weeks. She can follow up in our clinic in 2-4 weeks. Any orthopedic questions can be directed at [phone]. She will follow up for the hematoma with the wound clinic.
[2018-10-27] MEDS ORDERED: SULFAMETHOXAZOLE/TRIMETHOPRIM DS 800/160MG TAB PO SCH (12:30)
--- NOTE | 2018-10-27 17:50 | Discharge Summary ---
Date of Service October 27, 2018 Admission HPI Per Admitting Provider Mrs. Gill is a 77 year old female with past medical history of CKD stage III, HTN, HLD, Hypothyroidism, Depression, Chronic back pain who presented following a fall at home. Pt has h/o vertigo ~18 months ago; she was prescribed meclizine prn and has not had any further issues. Pt. states she was standing up this morning from her bed and immediately fell down. She fell to the ground and landed on her right hip/knee and left hand. The patient attempted to stand up but was not able to be weight bearing on the right leg due to pain. She denies hitting her head or LOC during fall; denies dizziness prior to fall or vertigo. Complains of severe right knee pain, rated as a 10/10, and left hand pain at site of open abrasion with skin tear. Denies pain in bilateral hips, left knee. Denies chest pain, SOB, LE edema, nausea/vomiting, diarrhea or constipation, dysuria or hematuria. XR of the Tib/Fib was negative. Hip XR showed incomplete lucency through greater trochanter of the right femur. CT of hip showed acute comminuted fracture of the greater trochanter of the right hip. Pt. will be admitted for orthopedic consult and pain control. Admission Exam Per Admitting Provider General: Elderly female, in no acute distress. Accompanied by daughter at bedside. HEENT: NC/AT; PERRLA with EOMI; [place] conjunctiva, MMM. Neck: Supple and nontender Cardiac: RRR Lungs: CTA bilaterally Abdomen: Bowel normoactive X 4; Nontender to palpation Rectal: Deferred : Deferred Back: NO spinous tenderness Extremities: Warm. Large 3-4 cm hematoma on the anterior portion of the proximal right tib/fib. Neuro: No focal weakness Skin: Large skin tear noted on the dorsum of the left hand; skin tear on the atnerior right tib/fib area. Principal Diagnosis Closed right hip fracture Discharge Exam General: Resting comfortably; appears mildly anxious. HEENT: NC/AT; PERRLA with EOMI; [place] conjunctiva, MMM. Neck: Supple and nontender Cardiac: RRR w/o murmurs, gallops or rubs. Lungs: CTA bilaterally Abdomen: Bowel normoactive X 4; Nontender to palpation Extremities: Warm. +1 RLE edema distal to the hematoma site. Neuro: No focal weakness Skin: Mutliple skin trauma areas -- Left hand skin tear; large medial hematoma. Discharge Data Allergies Allergy/AdvReac Type Severity Reaction Status Date / Time gabapentin Allergy Severe MOUTH Verified 10/15/18 17:09 SWELLS pregabalin Allergy Severe MOUTH Verified 10/15/18 17:09 SWELLS Consultations 10/15/18 17:55 ED Decision to Admit Stat 10/15/18 20:28 Consult Case Management - Discharge Planning Routine Consult Orthopedic Surgery Routine 10/16/18 08:50 Consult Cardiology Routine 10/22/18 17:48 Consult Wound Care Provider Routine Ordered Studies Tib/Fib, Hip/Pelvis, Hand XR 10/15/18 Shoulder XR 10/21/18 10/15/18 16:33 CT hip RT wo con Stat 10/21/18 14:23 US extremity nonvascular Routine Hospital Course (1) Closed right hip fracture: Osteoporosis with current fracture of R greater trochanter. Following fall at home on 10/15; CT showed acute comminuted fracture involving greater trochanter of the right hip. Home oxycontin was continued for pain control along with morphine and oxycodone prn. DVT ppx with aspirin 81 mg BID. Orthopedics consulted, recommended conservative care with weightbearing as tolerated and no hip abduction for 6 weeks. Will need to f/u with ortho in 2-4 weeks. PT/OT recommended SNF -- she will be discharged to [facility]. Will need to continue bowel regimen due to ongoing constipation. (2) Skin tear of left hand without complication: No signs of infection at this time; BID dressing changes. Wound care was consulted. (3) Hematoma of right lower extremity: Wound care consulted, s/p drainage of hematoma on 10/25/18 by wound care. Will need close follow up in wound clinic. Received keflex x 2 days followed by Bactrim x 3 days for ppx. (4) Fall: Was likely a mechanical fall; no indication for further work up. H/o vertigo ~18 months ago, did not likely contribute to recent fall. Lives at home with her daughter with home health aid support. Will be discharged to SNF. (5) Left bundle branch block: New LBBB noted on EKG. Echo showed EF 55-60%, mild LVH, focal thickening of the basal septum, grade I diastolic dysfunction. Consulted cardiology - no invasive work-up was recommended. (6) Chronic diastolic heart failure: Echo showed EF 55-60%, grade I diastolic dysfunction; no signs of decompensation at this time. Continue home ACEI. (7) Aortic stenosis: Echo showed moderate aortic stenosis. (8) Dyslipidemia: Continued home statin and aspirin. (9) Hypothyroid: Continued home Levothyroxine 50 mcg daily. Most recent TSH was 0.9 in January 2018. (10) HTN (hypertension): Decreased ACEI to 5 mg daily to avoid hypotension. BP was elevated at time of discharge, did not increased back to home dose of 5 mg BID. (11) Depression: Continued Effexor 150 mg daily (12) Chronic back pain: Continued home Oxycontin 30 mg BID with Morphine IV and Oxycodone prn. Also continued home Prednisone 5 mg daily. Voltaren gel was ordered for shoulder pain. (13) Uterine fibroid: 3 cm uterine fibroid vs. ovarian lesion on CT pelvis. Will need follow up imaging as outpatient. (14) GERD (gastroesophageal reflux disease): Continued home Protonix and Zantac. (15) Glaucoma: Continued home eye drops (16) Anemia: Acute blood loss anemia secondary to blood loss from fracture and large hematoma. (17) Hyponatremia: Na level was stable at time of discharge. (18) DVT prophylaxis: Aspirin 81 mg BID -- temporarily held for drainage of hematoma. Pt. was stable for discharge to [place] on 10/27/18. Total Time Total Time Spent Total Time Spent (In Minutes): >30 minutes Total Time Includes: Examination of the Patient, Discharge Planning, Medication Reconciliation, Communication With Other Providers and Other Discharge Plan Discharge Items Patient Disposition: Transfer Custodial Fac Reason For Visit: HIP FRACTURE Discharge Diagnosis: Closed Right Hip Fracture, Hematoma of Right Lower Extremity Condition: Fair Discharge Goals: Decrease discomfort, Improve disease control, Improve function, Increase independence, Improve nutritional status and Prevent disease Activity: As commented below Activity Comment: Per PT/OT recs. Exercise/Sports: Gradually increase as tolerated Weightbearing Comment: No right hip abduction for 6 week course. Non-emergency contact: Primary Care Provider and Surgeon Call non-emergency contact if: you have any medication questions, your symptoms worsen, your pain is not controlled, your pain is worsening, your pain is unusual for you, your pain is concerning for you, you have a fever, your wound has increased redness, your wound has increased drainage and your wound pain has increased Follow-up/Referrals: Faustina Mendoza, [Primary Care Provider] - Diet: Heart Healthy Diet Texture: Mechanical soft (ground) Addtl Provider Instructions: 1. Closed Right Hip Fracture * Please continue Oxycontin 30 mg twice daily scheduled with Oxycodone 5-10 mg every 4 hours as needed for breakthrough pain. * Please schedule a follow up with orthopedics in 1-2 weeks for outpatient evaluation. * Please continue physical and occupational therapy; pt. should avoid right hip abduction for a 6 week course. * Please continue Aspirin 81 mg twice daily for DVT prophylaxis. 2. Wound care * Please continue wound care as follows: - Left Hand: Apply optifoam and change every other day. - Right medial knee: Apply nickel thin layer of santyl, gently fill wound with packing and cover with optifoam. Change dressing daily. - Right lateral knee: apply santyl and cover with optifoam; change every other day. * Pt. will need to follow up with the [facility] for evaluation -- she has an appointment scheduled on Thursday10/29/18. 3. UTI * Urinalysis was positive; urine culture +staph aureus -- will need to determine if MRSA vs. MSSA based on results that will likely be available on 10/28. * Please continue Bactrim DS twice daily for a 3 day course (end date: 10/29/18) * Please continue Pyridium three times daily as needed for symptomatic treatment of UTI. 4. Hypertension * Blood pressure has been elevated during this admission after decreasing the dose of Lisinopril to once daily. * Please continue to monitor -- consider increasing Lisinopril back to twice da arlyn dosing if BP remains elevated. * Please avoid hypotension in the setting of multiple cardiac co-morbidities. 5. Uterine Fibroid * CT pelvis showed a 3 cm uterine fibroid vs. ovarian lesion during this admission. * Pt. will need to follow up with her outpatient provider for further imaging. 6. Please schedule a follow up with her primary care provider following discharge from SNF. 7. Please monitor lab work, including CBC with platelets and BMP, once weekly. Replace electrolytes as needed. Monitor renal function closely in the setting of Bactrim therapy. Prescriptions: New lisinopril [Zestril] 5 mg Tablet 5 mg PO DAILY Qty: 1 RF: 0 oxycodone [OxyContin] 15 mg Tablet,Oral Only,Ext.Rel.12 Hr 30 mg PO Q12H 3 Days Qty: 12 RF: 0 diclofenac sodium [Voltaren] 1 % Gel 1 % EXT TID 3 Days Qty: 100 RF: 0 oxycodone 5 mg Tablet 5 - 10 mg PO Q4H PRN (Reason: moderate to severe pain) 3 Days Qty: 18 RF: 0 phenazopyridine [Pyridium] 200 mg Tablet 200 mg PO TID PRN (Reason: pain) Qty: 1 RF: 0 sulfamethoxazole-trimethoprim [Bactrim DS] 800-160 mg tablet 1 tab PO Q12H Qty: 1 RF: 0 Continued latanoprost 0.005 % Drops 1 drp OPHTHALMIC (EYE) PM RF: 0 riboflavin (vitamin B2) 100 mg Tablet 100 mg PO DAILY RF: 0 venlafaxine 150 mg Capsule,Extended Release 24hr 150 mg PO DAILY RF: 0 magnesium oxide 400 mg (241.3 mg magnesium) Tablet 400 mg PO BID RF: 0 meclizine 25 mg Tablet 25 mg PO TID PRN (Reason: Dizziness) RF: 0 levothyroxine 50 mcg Tablet 50 mcg PO DAILY RF: 0 pantoprazole 40 mg Tablet,Delayed Release (Dr/Ec) 40 mg PO DAILY RF: 0 simvastatin 20 mg Tablet 20 mg PO HS RF: 0 ferrous sulfate 325 mg (65 mg iron) Tablet 325 mg PO BID RF: 0 ranitidine HCl 150 mg Tablet 150 mg PO HS RF: 0 furosemide 20 mg Tablet 20 mg PO QAM PRN (Reason: Fluid Retention) RF: 0 ergocalciferol (vitamin D2) 50,000 unit Capsule 50,000 unit PO DAILY RF: 0 fluticasone propionate 50 mcg/actuation [place],Suspension 1 spray INTRANASAL DAILY RF: 0 loratadine 10 mg Tablet 10 mg PO DAILY RF: 0 prednisolone 5 mg Tablet 5 mg PO DAILY RF: 0 Discontinued sennosides [senna] 8.6 mg Tablet 8.6 mg PO BID RF: 0 fluconazole 150 mg Tablet 150 mg PO Q3D RF: 0 hydrocodone-acetaminophen 5-325 mg Tablet 1 tab PO Q6H PRN (Reason: Pain) RF: 0 bupropion HCl 100 mg Tablet Sustained-Release 12 Hr 100 mg PO DAILY RF: 0 nystatin-triamcinolone 100,000-0.1 unit/g-% Cream 1 applic TOPICAL BID RF: 0 aspirin 81 mg Tablet,Chewable 81 mg PO DAILY RF: 0 lisinopril 5 mg Tablet 5 mg PO BID RF: 0 polyethylene glycol 3350 17 gram/dose Powder 17 g PO DAILY RF: 0 oxybutynin chloride 5 mg Tablet 5 mg PO HS RF: 0 potassium chloride 10 mEq Tablet,Er Particles/Crystals 10 meq PO DAILY RF: 0 Centrum Silver 400-250 mcg Tablet,Chewable 1 tab PO DAILY RF: 0 oxycodone [OxyContin] 30 mg Tablet,Oral Only,Ext.Rel.12 Hr 30 mg PO Q12H RF: 0 Stand-Alone Forms: My [facility] Discharge Orders: Discharge Order (Routine); Ordered 10/27/18 Ordered By: Carmella Grover Skilled Items Patient informed of condition?: Yes DNR: Yes Discharge Level of Care: Skilled Communicable Disease: No Discharge Prognosis: Stable Admission Data Admit Date/Time: 10/15/18 19:20 Attending Provider: Kayla Ba Admit Provider: Sundar Funez Primary Care Provider: Faustina Mendoza Other Providers: Tonny Woodruff ; Jamie May ; Sundar Funez ; Tonny Barber Service: Medical Other Interventions: Discharge Summary Assessment (RN) Last Done: 10/26/18 10:07 Pending Studies at Discharge: Yes Studies:: UC 10/26/18 Staph Aureus -- MRSA vs. MSSA is not yet determined. DC Date/Time DO NOT enter until pt leaves facility: 10/27/18 17:21 Supervising Physician Co-Signing Physician Notes Co-Signing Physician Notes PA Supervision Note: I personally saw and examined the patient. I verified all mcgarry points and agree with GILDARDO Grover with the following exceptions and/or additions: Pt anxious about going to SNF. Otherwise has some pain in the hip. Vitals reviewed NAD, obese female anicteric sclerae RRR no mgr CTAB no wcr Ext with ecchymosis rt hip and right distal thigh and knee with dressings in place over hematoma debridement site 1+ pitting edema right leg Stable for dc, treat UTI with Bactrim, f/u on Ur cx after discharge by SNF Pain control PT/OT Wound care for evacuated hematoma with open wound
== END 2018-10-27 17:21 | DRG 543 ==
LOC: ED 15:14 → 2N 19:20 → SUATTDRO 19:20 → 2N 19:53 → 3E 10-16 22:51

== ENCOUNTER 2019-02-28 15:43 | Inpatient (IN) ==
[~2019-02-28 15:43] MED LIST changes: +ADENOSINE IV SOLN 3 MG/ML 2 ML VIAL IV ONE; -AMOX1TAB43 PO; -ASPEC81 PO; -CLR10 PO; -FERR1TAB13 PO; -FLUO0.01 TOP; -FLUT0.15 NAE; -FURO20TA PO; +FUROSEMIDE 10 MG/ML 10 ML VIAL IV ONE; -LACT15SO PO; -LATA0.009 OPB; -LEVO75TA PO; -LIDO2SOL10 PO; -LISI10TA PO; -MAGN400C2 PO; -MBXC PO; -MECL1TAB42 PO; +METOPROLOL TARTRATE 1 MG/ML VIAL IV ONE; -MULTCHW PO; -NYSS/ PO; -NYST1POW7 TOP; -NYSTCRE11 TOP; -OXYC-787 PO; -PANT1TAB48 PO; -POLY335019 PO; -POTA20TA13 PO; -PRED-301 PO; -RIBO100C PO; -SENNTAB23 PO; -SIME1CHW17 PO; -SIMV20TA2 PO; +SODIUM CHLORIDE 0.9% 1000 ML BAG IV ONE; +SODIUM CHLORIDE 0.9% 10ML FLUSH IV ONE; -VENL150C56 PO; -VITACAP37 PO
[2019-02-28] MEDS ORDERED: SODIUM CHLORIDE 0.9% 1000ML 1,000 ML IV SCH ×2 (16:15→22:00)
[2019-02-28] MEDS ORDERED: ASPIRIN CHEW 324 MG PO STA (16:21)
[2019-02-28 16:36] LABS: Eosinophils # (auto) 0.01 K/uL (0-0.5); Eosinophils % (auto) 0.1 %; Hematocrit (blood only) 38.4 % (37-47); Hemoglobin 13.3 g/dL (12.0-16.0); Immature Granulocytes # (auto) 0.02 K/uL (0.00-0.02); Immature Granulocytes % (auto) 0.3 %; Lymphocytes # (auto) 0.38 K/uL (1.2-3.4); Lymphocytes % (auto) 4.8 %; Mean Corpuscular Hgb Conc 34.6 g/dL (32-36); Mean Corpuscular Volume 86.3 fL (80-100); Mean Platelet Volume 11.2 fL (7.4-10.4); Monocytes # (auto) 0.49 K/uL (0.11-0.59); Monocytes % (auto) 6.1 %; Neutrophils # (auto) 7.08 K/uL (1.4-6.5); Neutrophils % (auto) 88.7 %; Nucleated RBC # (auto) 0.09 K/uL (0-0); Nucleated RBC % (auto) 1.2 %; Platelet Count 176 K/uL (130-400); RDW Coefficient of Variation 15.8 % (11.5-14.5); Red Blood Count 4.45 M/uL (4.2-5.4); White Blood Count 7.98 K/uL (4.8-10.8)
[2019-02-28] MEDS ORDERED: CALCIUM GLUCONATE 10% 1,000 MG in SODIUM CHLORIDE 0.9% 50 ML IV STA (16:37)
[2019-02-28] MEDS ORDERED: SODIUM POLYSTYRENE SULFONATE 15G/60ML SUSP PO STA (16:37)
[2019-02-28 16:47] LABS: Oxygen Saturation VBG 65.5 %; pH VBG 7.3 (7.36-7.41)
[2019-02-28 16:48] LABS: iSTAT Ionized Calcium 0.9 mmol/l (1.12-1.32); iSTAT Potassium 6.2 mEq/L (3.3-5.0)
--- NOTE | 2019-02-28 16:48 | XRay Report ---
XR chest 1V portable CLINICAL HISTORY: Shortness of breath COMPARISON STUDY: 04/08/2017 FINDINGS: The heart is enlarged. There is elevation of interstitium suggesting mild pulmonary vascula r congestion/fluid overload. There are more focal right basilar airspace opacities, atelectatic versu s infectious/inflammatory. Clinical and radiographic follow-up is recommended. There is a suspected t race right pleural effusion[ IMPRESSION: 1. Cardiomegaly and radiographic evidence of mild congestive failure/fluid overload 2. More focal right basilar airspace opacities, atelectatic versus infectious/inflammatory. Clinical and radiographic follow-up is recommended. Electronically signed by: Mikal Jasso M.D. 02/28/2019 4:47 PM
[2019-02-28 16:49] LABS: Appearance Urine Turbid (Clear); Bacteria Urine Automated Negative (Negative); Blood Urine 1+ (Negative); Color Urine Dark Yellow; Epithelial Cell Urine Auto >30 /lpf (0-5); Glucose Urine UA Negative (Negative); Ketones Urine Trace (Negative); Leukocyte Esterase Urine 3+ (Negative); Nitrite Urine Positive (Negative); Protein Urine 2+ (Negative); RBC Urine Automated 0-4 /hpf (0-4); Specific Gravity Urine 1.024 (1.000-1.030); Urobilinogen Urine Negative (Negative); WBC Urine Automated >30 /hpf (0-5)
[2019-02-28 16:50] LABS: INR 2.2 (0.9-1.1); Partial Thromboplastin Ratio 1.3; Partial Thromboplastin Time 35.3 Seconds (21.0-31.0); Prothrombin Time 21.2 Seconds (9.0-12.0)
[2019-02-28] MEDS ORDERED: ALBUTEROL 0.083% NEBU SOLN 3 ML VIAL NEB STA (16:56)
[2019-02-28 17:04] LABS: Bilirubin Urine 2+ (Negative)
[2019-02-28 17:06] LABS: Ictotest Urine Positive (Negative)
[2019-02-28] MEDS ORDERED: cefTRIAXone SODIUM 1,000 MG/50 ML BAG IV STA (17:06)
[2019-02-28] MEDS ORDERED: CEFEPIME 20 ML IV STA (17:21)
[2019-02-28 17:22] LABS: Albumin Level 3.2 gm/dl (3.4-5.0); Alkaline Phosphatase 129 U/L (45-117); BUN Creatinine Ratio 23.4 (10-20); Bilirubin,Total 1.8 mg/dl (0.2-1); Blood Urea Nitrogen 64 mg/dl (7-18); Calcium 8.2 mg/dl (8.5-10.1); Carbon Dioxide 19 mmol/L (21-32); Chloride 95 mmol/L (98-107); Est GFR (African American) 18.7; Est GFR (Non-African American) 16.1; Glucose 78 mg/dl (70-99); Potassium 6.1 mmol/L (3.5-5.1); Sodium 132 mmol/L (136-145); Total Protein 6.5 gm/dl (6.4-8.2); Troponin I 0.617 ng/ml (0-0.045)
[2019-02-28 17:29] LABS: Alanine Aminotransferase 2943 U/L (12-78); Aspartate Aminotransferase 3231 U/L (15-37); Bilirubin Direct 1.3 mg/dl (0-0.2)
[2019-02-28] MEDS ORDERED: CEFEPIME 2,000 MG in SYRINGE 7.5 ML IV ONE (18:00)
--- NOTE | 2019-02-28 18:41 | Ultrasound Report ---
BILIARY ULTRASOUND CLINICAL HISTORY: Upper abdominal pain possible cholecystitis COMPARISON STUDY: CT scan dated April 2017 FINDINGS: The pancreas was poorly visualized. Evaluation of the pancreas is essentially nondiagnostic . The liver is heterogeneous in echotexture without evidence of focal mass. Evaluation gallbladder was limited due to overlying bowel gas. The patient was unable to lie in decub itus position. There is a negative sonographic Negro sign. There is no common bile duct dilatation. The common bile duct measures 3 mm. Is no right-sided hydronephrosis IMPRESSION: 1. Significantly limited study from technical standpoint secondary to a lack of optimal acoustic wind ow within the patient's inability to lie in a decubitus position 2. No definite gallbladder calculi identified 3. No common bile duct dilatation 4. Heterogeneous hepatic echotexture Electronically signed by: Mikal Jasso M.D. 02/28/2019 6:40 PM
--- NOTE | 2019-02-28 19:35 | History & Physical Report ---
Date of Service February 28, 2019 Assessment & Plan (1) Acute kidney injury: 78 y/o F Hx CHF, CKD III, chronic back pain, moderate , hypothyroidism, HTN, HLD, hiatal hernia. The prior week she had been to her GP c/o a cough and SOB. She was placed on Zithromax, albuterol and a steroid taper for bronchitis. 2 days prior, she developed diffuse abdominal pain described as pressure-like and encompassing the entire abdomen. She describes nausea, 2 episodes of vomiting and minimal PO intake. She states she has not had any urine output over the past 2 days. She has become progressively week and continues to c/o of a degree of breathlessness. Initial labs on arrival to the ER wer highly abnormal demonstrating ARF, hyperkalemia, markedly elevated LFTs and an elevated troponin. A UA is strongly +. An EKG demonstrated peaked Ts consistent with hyperK. A gallbladder US did not show any acute abnormalities. A CXR suggested vascular congestion. We obtained a CT therefore which demonstrated BL effusions and a R multifocal PNM. 1) ARF (on CKD III) with hyperkalemia - This presents a challenge as the pt appears to be volume overloaded. She received fluids and a hyperK protocol in the ER including calcium and albuterol. She will be placed on telemetry, we will continue fluids at a lower rate and provide Lasix if she becomes hypoxic. If we recheck her BMP and her K has not improved or her renal function is worsening, we would need to consider dialysis. 2) CHF and BL effusions - we are holding off on Lasix due to ARF. She has not tolerated PO or urinated in 2 days. We will diurese with any hypoxia. We would consider thoracentesis as an option if her effusions are enlarging or do not resolve. 3) Pneumonia - RL and R mid - Placed on Ceftriaxone and Doxy as we could not provide atypical coverage with Levaquin considering her hyperK. Albuterol PRN, 02 protocol. 4) UTI - this should be adequately covered with ceftriaxone pending culture results. 5) Elevated trop - no evidence of ACS - cont ASA - a cardio consult was requested by the pt's GP - an echo is ordered for AM to assess for WMAs. Trop will be trended. 6) LFT abnormalities - N/V, abdominal pain - no clear cause or evidence of acute abnormalities on US or CT - can be hepatic congestion or shock liver. Will trend AM. 7) Hypothyroidism - cont synthroid Full code - SCDs as INR is elevated Total time for this admit including review of labs, meds, imaging, records - discussion with pt and ER attending - 50 min Present on Admission?: Yes (2) RLL pneumonia: History of Present Illness Chief Complaint: ARF, hyperK, LFTs elevated Primary Care Provider: Faustina Mendoza, DO 78 y/o F Hx CHF, CKD III, chronic back pain, moderate , hypothyroidism, HTN, HLD, hiatal hernia. The prior week she had been to her GP c/o a cough and SOB. She was placed on Zithromax, albuterol and a steroid taper for bronchitis. 2 days prior, she developed diffuse abdominal pain described as pressure-like and encompassing the entire abdomen. She describes nausea, 2 episodes of vomiting and minimal PO intake. She states she has not had any urine output over the past 2 days. She has become progressively week and continues to c/o of a degree of breathlessness. Initial labs on arrival to the ER wer highly abnormal d emonstrating ARF, hyperkalemia, markedly elevated LFTs and an elevated troponin. A UA is strongly +. An EKG demonstrated peaked Ts consistent with hyperK. A gallbladder US did not show any acute abnormalities. A CXR suggested vascular congestion. We obtained a CT therefore which demonstrated BL effusions and a R multifocal PNM. PMH: 1) Grade I diastolic CHF - echo 2019 2) CKD III 3) Chronic back pain with narcotic dependence and daily prednisone use. 4) Hypothyroidism 5) HTN 6) HLD 7) LBBB 8) Chronic vertigo 9) GERD 10) History of gastric ulcer 11) Moderate aortic stenosis - echo 2019 12) L hip fracture 10/2018 - medical management 13) Iron-deficiency anemia 14) Hiatal hernia 15) Prior diagnosis of DM - resolved with weight loss Surgical: 1) L shoulder 2) Umbilical hernia Social: Does not drink alcohol Quit smoking > 30yrs ago Family: "heart problems" Allergies Allergy/AdvReac Type Severity Reaction Status Date / Time gabapentin Allergy Severe MOUTH Verified 02/28/19 17:22 SWELLS pregabalin Allergy Severe MOUTH Verified 02/28/19 17:22 SWELLS Home Medications Home Medications Medication Instructions Recorded Confirmed Type fluticasone propionate 1 spray INTRANASAL DAILY 10/15/18 02/28/19 History lisinopril [Zestril] 5 mg PO DAILY #1 tab 10/26/18 02/28/19 Rx phenazopyridine [Pyridium] 200 mg PO TID PRN #1 tab 10/26/18 02/28/19 Rx aspirin 81 mg tablet,delayed 81 mg PO DAILY 10/29/18 02/28/19 History release prednisone 5 mg tablet 5 mg PO DAILY #30 tab 01/14/19 02/28/19 Rx ranitidine 150 mg tablet 150 mg PO HS #30 tab 01/14/19 02/28/19 Rx latanoprost 0.005 % eye drops 1 drp OPHTHALMIC (EYE) PM #2.5 ml 01/21/19 02/28/19 Rx oxycodone 5 mg tablet 5 mg PO DAILY #7 tab 01/21/19 02/28/19 Rx oxycodone ER 30 mg tablet,crush 30 mg PO Q12H #60 tab 01/31/19 02/28/19 Rx resistant,extended release 12 hr pantoprazole 40 mg tablet,delayed 40 mg PO DAILY #90 tab 02/11/19 02/28/19 Rx release Voltaren 1 % topical gel 2 gm TOP QID #100 gm NS 02/22/19 02/28/19 Rx albuterol sulfate HFA 90 1 puffs INH Q4H PRN #18 gm 02/25/19 02/28/19 Rx mcg/actuation aerosol inhaler azithromycin 250 mg tablet See Rx Instructions PO .COMPLEX #6 02/25/19 02/28/19 Rx tab furosemide 20 mg tablet 20 mg PO QAM PRN #30 tab 02/25/19 02/28/19 Rx levothyroxine 50 mcg tablet 50 mcg PO DAILY #30 tab 02/25/19 02/28/19 Rx loratadine 10 mg tablet 10 mg PO DAILY #30 tab 02/25/19 02/28/19 Rx meclizine 25 mg tablet 25 mg PO TID PRN #30 tab 02/25/19 02/28/19 Rx prednisone 20 mg tablet 40 mg PO DAILY 5 Days #10 tab 02/25/19 02/28/19 Rx simvastatin 20 mg tablet 20 mg PO HS #30 tab 02/25/19 02/28/19 Rx venlafaxine ER 150 mg 150 mg PO DAILY #30 cap 02/25/19 02/28/19 Rx capsule,extended release 24 hr Past Med/Surg History Medical History Diabetic nephropathy History of TIA (transient ischemic attack) Open-angle glaucoma History of peptic ulcer Anxiety Polymyalgia rheumatica Chronic venous insufficiency Diabetes mellitus type 2 with complications Esophageal dyskinesia Vitamin D deficiency Anemia Aortic stenosis Chronic diastolic heart failure Left bundle branch block GERD (gastroesophageal reflux disease) Osteoarthritis Depression Dyslipidemia Hypothyroid CKD (chronic kidney disease), stage III Diabetic neuropathy HTN (hypertension) Rectocele Closed right hip fracture (Resolved) Hematoma of right lower extremity (Resolved) Allergic rhinitis Chronic back pain Diverticulosis Glaucoma Hiatal hernia Lumbar disc disease Lumbar spinal stenosis Ovarian mass TIA (transient ischemic attack) Urinary incontinence Uterine fibroid Vertigo Surgical History H/O rectocele repair H/O repair of rotator cuff H/O umbilical hernia repair History of bilateral knee replacement S/P evacuation of hematoma October 2018, R hip Family History Father Diabetes Hypertension Sister Diabetes Brother Diabetes Mother Hypertension Social History Preferred Language: E[place] Communication Ability: Effective Visual Impairment: No Limitations Hearing Ability: Normal Line Technician Required: No Beliefs That Will Affect Care: None marital status: Current Living Situation: Spouse Current Living Situation Comment: Caregiver in AM, daughter at home from 0900- 1999 current occupational status: retired Other Information That Helps Us Care for You: No Feels Safe at Home: Yes Safety Concerns: Feels Safe At This Time Smoking Status: Never smoker Tobacco Type: cigarettes Cigarettes Per Day: 3 Do You Dip or Chew Tobacco: No Second Hand Exposure: No Tobacco Cessation Education Requested by Patient: No Hx Alcohol Use: No Hx Substance Use: No Dental Care, Regularly: No Physical Activity Frequency: Does not Exercise Review of Systems Review of Systems: Gen: Weakness, sweats reported ENT: Denies congestion, throat pain, hearing loss Eyes: Denies acute visual changes CV: Denies CP, palpitations - had a heavy feeling in epigastric region Pulmonary: Reports SOB and "difficulty catching breath" - reported cough the prior week GI: Nausea, vomiting and abdominal pain x 2 days Neuro: Denies acute or unilateral weakness, acute gait impairment, headache or acute visual changes Musculoskeletal: Denies joint pain, inflammation Endocrine: Denies polydipsia - no urine output x 2 days Skin: Skin tears on LEs Physical Exam Physical Exam: General: Lethargic, elderly F, AAO, no distress ENT: No erythema or exudates, no thrush - nonicteric - proptosis is present L > R - chronic per daughter Eyes: URBANO, EOMI Head and neck: Normocephalic, atraumatic - JVD is apparent Chest/heart: Nontender, S1,2, RRR, faint, mild, systolic murmur, no gallops Lungs: No air entry at bases - no crackles or audible wheezing Abdomen: Diffuse, mild tenderness to palpation Neuro: AAO x 3, speech is clear, no unilateral weakness or loss of sensation, coordination intact Musculoskeletal: No joint inflammation, muscle tenderness, FROM Skin: There is a mild abrasion on the R ant mccord, skin is discolored Extremities: No clubbing, cyanosis, edema Results & Data Vital Signs (Past 12 Hours) Vital Signs Temp Pulse Pulse Resp BP Pulse Ox 02/28/19 19:00 102 H 17 131/81 96 02/28/19 18:43 101 H 14 117/87 97 02/28/19 18:42 107 H 19 87 L 02/28/19 18:00 99 H 12 02/28/19 17:28 100 H 14 135/87 95 02/28/19 17:07 97 H 16 95 02/28/19 16:00 97.9 F 100 H 20 109/85 94 Diagnostic Findings 1. Bilateral pleural effusions with right middle lobe and right lower lobe airspace opacities 2. Cholelithiasis 3. Pancreatic atrophy 4. No hepatic or splenic masses identified given the limitations of a noncontrast study 5. No evidence of pathologic adenopathy 6. Advanced degenerative changes within the lumbar spine with multilevel spinal stenosis PG Care Time/CCT Total # of Minutes Spent Total Time Spent with Patient: Total time spent is greater than 50% in coordination of care (as documented) at patient's floor/unit and/or counseling patient:
--- NOTE | 2019-02-28 20:40 | CT Scan Report ---
CT abdomen wo con CT DOSE: 873.92 mGy.cm CLINICAL HISTORY: acute liver failure TECHNIQUE: Unenhanced images were obtained through the upper abdomen. A dose lowering technique was utilized adhering to the principles of ALARA. COMPARISON STUDY: 04/08/2017 FINDINGS: The visualized portions lung bases reveal bilateral pleural effusions right greater than left. There are right middle lobe and right lower lobe airspace opacities. No hepatic masses are visualized on this noncontrast study. There are multiple gallstones present. The spleen is of normal size. No splenic masses are visualized in this noncontrast study. There is fatty atrophy of the pancreas. No pancreatic masses are visualized. No adrenal masses are visualized. No renal calculi are visualized. There is no hydronephrosis. There are no dominant masses identified given the limitations of a noncontrast study. There is no evidence for abdominal aortic dilatation. Atheromatous changes are present within the abd ominal aorta. There is no evidence for pathologic upper abdominal lymphadenopathy. There is moderate right colonic stool. There are advanced degenerative changes within the lumbar spine with multilevel spinal stenosis IMPRESSION: 1. Bilateral pleural effusions with right middle lobe and right lower lobe airspace opacities 2. Cholelithiasis 3. Pancreatic atrophy 4. No hepatic or splenic masses identified given the limitations of a noncontrast study 5. No evidence of pathologic adenopathy 6. Advanced degenerative changes within the lumbar spine with multilevel spinal stenosis Electronically signed by: Mikal Jasso M.D. 02/28/2019 8:39 PM
--- NOTE | 2019-02-28 20:47 | CT Scan Report ---
CT chest wo con CLINICAL HISTORY: occult pneumonia vs CHF SHORTNESS OF BREATH COMPARISON STUDY: Chest x-ray dated 02/28/2019 CT DOSE: TECHNIQUE: CT of the thorax was performed from the thoracic inlet to the lung bases. Images are revi ewed in the axial, sagittal, and coronal planes. IV contrast was not administered for this examinatio n. A dose lowering technique was utilized adhering to the principles of ALARA. FINDINGS: Thyroid: Imaged portions of the thyroid gland are normal in appearance. Thoracic aorta: The thoracic aorta is normal in course and caliber, noting standard 3 vessel arch mamta jacques. Heart: There are extensive coronary artery calcifications. There is no pericardial effusion. Lungs and pleural spaces: There are small bilateral pleural effusions right greater than left. There are patchy bilateral groundglass opacities. The findings likely represent pulmonary edema although a bilateral inflammatory/infectious process could appear similar. There are areas of more focal parench ymal consolidation within the right middle lobe and right lower lobe dependently. There are 2 areas w hich have a somewhat nodular configuration (images #[id number], and 88/236). An infectious/inflammatory etiology is suspected. A 3 month follow-up CT scan is recommended to document resolution and exclude underlying malignancy Mediastinum: There is no mediastinal lymphadenopathy. Kamila: There is no evidence of pathologic hilar adenopathy given the limitations of a noncontrast stud y Axilla: There is no evidence of pathologic axillary lymphadenopathy Upper abdomen: Partially visualized upper abdominal viscera is within normal limits. Skeletal structures: There are no lytic or blastic osseous lesions. IMPRESSION: 1. Bilateral pleural effusions right greater than left 2. Extensive coronary artery calcifications 3. Bilateral groundglass pulmonary opacities, likely representing pulmonary edema although a bilatera l infectious/inflammatory processes could appear similar 4. More focal somewhat nodular airspace opacities within the right middle lobe and right lower lobe. A superimposed pneumonia is suspected. A 3 month follow-up CT scan is recommended to document resolut ion. Electronically signed by: Mikal Jasso M.D. 02/28/2019 8:45 PM
[2019-02-28] MEDS ORDERED: cefTRIAXone SODIUM 1,000 MG in DEXTROSE 5% 50 ML IV SCH (21:00)
[2019-02-28] MEDS ORDERED: PHENAZOPYRIDINE HCL 200 MG TAB PO PRN (21:19)
[2019-02-28] MEDS ORDERED: ALBUTEROL HFA 8 GM INHALER INH PRN (21:19)
[2019-02-28] MEDS ORDERED: HEPARIN SOD 5,000 UNIT/0.5 ML VIAL SQ SCH (22:00)
[2019-02-28] MEDS: SIMVASTATIN 20 MG TAB PO SCH (22:41)
[2019-02-28] MEDS: DOXYCYCLINE HYCLATE 100 MG in DEXTROSE 5% 100 ML IV SCH (22:41)
[2019-02-28] MEDS: LATANOPROST 0.005% OP SOLN 2.5 ML BTL OP SCH (22:41)
[2019-02-28] MEDS: OXYCODONE HCL 15 MG TABCR (OXYCONTIN) PO SCH (22:41)
--- NOTE | 2019-02-28 22:58 | Emergency Department Note ---
Entered by Marliyn Arrieta acting as a scribe for Ravinder Silvestre History of Present Illness General Chief complaint: Shortness of Breath/Dyspnea Time Seen by Provider: 02/28/19 16:07 Source: patient and family Mode of arrival: EMS Limitations: no limitations History of Present Illness Provider complaint: Shortness of breath Onset (ago): day(s) 4 Location: chest Pain Consistency: + other (persistent ) Maximum Pain Intensity: 8 Relieved By: not by medication (Zofran ) Associated symptoms: + cough, + diaphoresis, + nausea/vomiting (nausea ) and + other; no chest pain Treatments prior to arrival: other (1 amp of D10W) The patient is a 78 year old female who presents to the ED via EMS with complaints of persistent shortness of breath that began 4 days now. The patient states that she finds it hard to breathe and she feels like she cant catch her breath. She reports that she has also been experiencing nausea with little relief from Zofran. The patient states that she has been abnormally sweating for 1 day now. The patient states that she has had a non-productive cough for 4 days now that has progressively gotten worse. She reports that 3 days ago she began wheezing with her cough. The patient states that she went to her PCP Thursday, Dr. Mendoza, [facility]. She reports that he gave her an antibiotic because she thought the patient had pneumonia. The patients daughter notes that the patient has not urinated in 36 hours. She states that the patient has not fallen in over 4 months. The patient had no medication today except for Zofran to relieve her nausea.The patient denies any chest pain or heart issues in the ED today. The charge nurse reports that the patient was hypoglycemic upon arrival of the EMS and was given 1 amp of D10W on her way to the ED. Home Medications Home Medications Medication Instructions Recorded Confirmed Type fluticasone propionate 1 spray INTRANASAL DAILY 10/15/18 02/28/19 History lisinopril [Zestril] 5 mg PO DAILY #1 tab 10/26/18 02/28/19 Rx phenazopyridine [Pyridium] 200 mg PO TID PRN #1 tab 10/26/18 02/28/19 Rx aspirin 81 mg tablet,delayed 81 mg PO DAILY 03/29/19 07/29/19 History release prednisone 5 mg tablet 5 mg PO DAILY #30 tab 01/14/19 02/28/19 Rx ranitidine 150 mg tablet 150 mg PO HS #30 tab 01/14/19 02/28/19 Rx latanoprost 0.005 % eye drops 1 drp OPHTHALMIC (EYE) PM #2.5 ml 01/21/19 02/28/19 Rx oxycodone 5 mg tablet 5 mg PO DAILY #7 tab 01/21/19 02/28/19 Rx oxycodone ER 30 mg tablet,crush 30 mg PO Q12H #60 tab 01/31/19 02/28/19 Rx resistant,extended release 12 hr pantoprazole 40 mg tablet,delayed 40 mg PO DAILY #90 tab 02/11/19 02/28/19 Rx release Voltaren 1 % topical gel 2 gm TOP QID #100 gm NS 02/22/19 02/28/19 Rx albuterol sulfate HFA 90 1 puffs INH Q4H PRN #18 gm 02/25/19 02/28/19 Rx mcg/actuation aerosol inhaler azithromycin 250 mg tablet See Rx Instructions PO .COMPLEX #6 02/25/19 02/28/19 Rx tab furosemide 20 mg tablet 20 mg PO QAM PRN #30 tab 02/25/19 02/28/19 Rx levothyroxine 50 mcg tablet 50 mcg PO DAILY #30 tab 02/25/19 02/28/19 Rx loratadine 10 mg tablet 10 mg PO DAILY #30 tab 02/25/19 02/28/19 Rx meclizine 25 mg tablet 25 mg PO TID PRN #30 tab 02/25/19 02/28/19 Rx prednisone 20 mg tablet 40 mg PO DAILY 5 Days #10 tab 02/25/19 02/28/19 Rx simvastatin 20 mg tablet 20 mg PO HS #30 tab 02/25/19 02/28/19 Rx venlafaxine ER 150 mg 150 mg PO DAILY #30 cap 02/25/19 02/28/19 Rx capsule,extended release 24 hr Allergies Allergy/AdvReac Type Severity Reaction Status Date / Time gabapentin Allergy Severe MOUTH Verified 02/28/19 17:22 SWELLS pregabalin Allergy Severe MOUTH Verified 02/28/19 17:22 SWELLS Past Med/Surg History Medical History Diabetic nephropathy History of TIA (transient ischemic attack) Open-angle glaucoma History of peptic ulcer Anxiety Polymyalgia rheumatica Chronic venous insufficiency Diabetes mellitus type 2 with complications Esophageal dyskinesia Vitamin D deficiency Anemia Aortic stenosis Chronic diastolic heart failure Left bundle branch block GERD (gastroesophageal reflux disease) Osteoarthritis Depression Dyslipidemia Hypothyroid CKD (chronic kidney disease), stage III Diabetic neuropathy HTN (hypertension) Rectocele Closed right hip fracture (Resolved) Hematoma of right lower extremity (Resolved) Allergic rhinitis Chronic back pain Diverticulosis Glaucoma Hiatal hernia Lumbar disc disease Lumbar spinal stenosis Ovarian mass TIA (transient ischemic attack) Urinary incontinence Uterine fibroid Vertigo Surgical History H/O rectocele repair H/O repair of rotator cuff H/O umbilical hernia repair History of bilateral knee replacement S/P evacuation of hematoma October 2018, R hip Family History Father Diabetes Hypertension Sister Diabetes Brother Diabetes Mother Hypertension Social History Preferred Language: Upper Sorbian Communication Ability: Effective Visual Impairment: No Limitations Hearing Ability: Normal Respiratory Therapist Required: No Beliefs That Will Affect Care: None marital status: Current Living Situation: Spouse Current Living Situation Comment: Caregiver in AM, daughter at home from 899- 1999 current occupational status: retired Other Information That Helps Us Care for You: No Feels Safe at Home: Yes Safety Concerns: Feels Safe At This Time Smoking Status: Never smoker Tobacco Type: cigarettes Cigarettes Per Day: 3 Do You Dip or Chew Tobacco: No Second Hand Exposure: No Tobacco Cessation Education Requested by Patient: No Hx Alcohol Use: No Hx Substance Use: No Dental Care, Regularly: No Physical Activity Frequency: Does not Exercise Review of Systems See HPI for pertinent positives & negatives. and A total of 10 systems reviewed and were otherwise negative Physical Exam Vital Signs Vital Signs - 24 hr 02/28/19 16:00 02/28/19 16:15 02/28/19 17:07 Temperature 36.6 C Temperature Source Oral Sepsis Recent Fever Within 48 Hours No Sepsis Action Taken by Nursing No Action Required Pulse Rate 100 H Pulse Rate [Left Finger] 97 H Pulse Rate from SpO2 Sensor Respiratory Rate 20 16 Respiratory Effort / Characteristics Non-Labored Spontaneous Blood Pressure 109/85 Blood Pressure Mean 93 Pulse Oximetry 94 95 Oxygen Delivery Method Room Air Room Air Room Air 02/28/19 17:28 02/28/19 18:00 02/28/19 18:42 Temperature Temperature Source Sepsis Recent Fever Within 48 Hours Sepsis Action Taken by Nursing Pulse Rate 100 H 99 H 107 H Pulse Rate [Left Finger] Pulse Rate from SpO2 Sensor 91 H Respiratory Rate 14 12 19 Respiratory Effort / Characteristics Blood Pressure 135/87 Blood Pressure Mean 103 Pulse Oximetry 95 87 L Oxygen Delivery Method Room Air 02/28/19 18:43 02/28/19 19:00 Temperature Temperature Source Sepsis Recent Fever Within 48 Hours Sepsis Action Taken by Nursing Pulse Rate 101 H 102 H Pulse Rate [Left Finger] Pulse Rate from SpO2 Sensor 93 H 106 H Respiratory Rate 14 17 Respiratory Effort / Characteristics Blood Pressure 117/87 131/81 Blood Pressure Mean 97 97 Pulse Oximetry 97 96 Oxygen Delivery Method GENERAL: She does appear distressed. HENT: Exam performed. - Head: Normocephalic and atraumatic. - Right Ear: External ear normal. No mastoid tenderness. -Left Ear: External ear normal. No mastoid tenderness. -Mouth/Throat: The oropharynx is clear and moist. No trismus in the jaw. No dental abscesses or uvula swelling. No oropharyngeal exudate or tonsillar abscesses. EYES: Conjunctivae and EOM are normal. Pupils are equal, round, and reactive to light. Right eye exhibits no discharge. Left eye exhibits no discharge. No scleral icterus. NECK: Normal range of motion. Neck supple. No JVD present. No spinous process tenderness present. No carotid bruit present. No rigidity. No tracheal deviation and normal range of motion present. No Brudzinski's sign and no Kernig's sign noted. CV: Tachycardic rate, regular rhythm, normal heart sounds and intact distal pulses. There is no peripheral edema. Palpable radial pulses bue. PULM/CHEST: Rhonchi bilaterally. Chest Wall: She exhibits no tenderness. ABD: The abdomen is soft. Bowel sounds are normal. She has no distension. No mass is present. There is no tenderness. There is no rebound, no guarding, no Negro's sign and no tenderness at McBurney's point. Rovsig negative MUSC/SKEL: Normal range of motion. There is no peripheral edema, tenderness or deformity. LYMPH: No cervical adenopathy. NEURO: She is alert and oriented to person, place, and time. She has normal strength. No cranial nerve deficit or sensory deficit. Coordination and gait normal. GCS eye subscore is 4. GCS verbal subscore is 5. GCS motor subscore is 6. cerbellar tests wnl. SKIN: Skin is warm and dry. She is not diaphoretic. PSYCH: She has a normal mood and affect. Her behavior is normal. Judgment and thought content normal. Course 1610: Past medical records reviewed. The patient was evaluated in room C12B. A complete history and physical exam was performed. EKG done showed left bundle branch block with worsening discordant ST elevation in leads V2 and V3. I discussed the patients case with Dr. Lafleur Cardiology. He verbalized that he wants to be notified of the results from the patients Troponin test. He stated that when I receive the results to call him at extension [phone] and he will review the patients EKGs further. 1615: The patient's POC labs showed a sodium level of 128, a potassium level of 6.2, and a creatinine level of 3.0 up line from her baseline. Her POC lactic acid was 2.76. The patient was hypoglycemic upon arrival vis EMS. The patient will be treated with 1 gram of Calcium Gluconate, 15mg of Kayexalate, and 5 mg of Albuterol. We will hold off on insulin and D50W given the fact that the patient was hypoglycemia upon arrival and given 1 amp of D10W in the EMS. I discussed the patients case with Dr. Lafleur Cardiology. I made him aware of the patients POC lab results. He states that the EKG changes could be due to the patients electrolyte and Troponin levels. He states that there is no need for heart alert activation. 1658: The patients INR came back elevated at 2.2. I reviewed the patients medical history and she is not on Coumadin or any blood thinners. 1727: The patients labs confirm the she has elevated troponin and hyperkalemia. Her AST level is 3231, ALT level is 2943, Alk Phos level is 129, Troponin level is 0.617, and her Lipase level is 853. The patient is going to get an ultrasound of her abdomen. 1855: The patients US shows no gallstones or CBD dilatation. I discussed the patients case with [place] hospitalist who accepts the admission of the patient. Consultations Consultation #1: I discussed the patients case with Dr. Doarntes- Cardiology. He verbalized that he wants to be notified of the results from the patients Troponin test. He stated that when I receive the results to call him at extension [phone] and he will review the patients EKGs further. Time: 16:20 Consultation #2: I discussed the patients case with Dr. Dorantes- Cardiology. I made him aware of the patients POC lab results. He states that the EKG changes could be due to the patients electrolyte and Troponin levels. He states that there is no need for heart alert activation. Time: 16:30 Time: 18:55 Administered Medications Ceftriaxone Sodium 1,000 mg/ (Dextrose) 50 mls @ 100 mls/hr IV Q24H GRETCHEN; Protocol Stop: 03/10/19 20:59 Last Infusion: 02/28/19 22:48 Dose: 0 mls/hr Documented by: [id number] Admin: 02/28/19 22:03 Dose: 100 mls/hr Documented by: [id number] Doxycycline Hyclate 100 mg/ (Dextrose) 110 mls @ 50 mls/hr IV BID GRETCHEN Stop: 03/07/19 20:59 Last Admin: 02/28/19 22:41 Dose: 50 mls/hr Documented by: [id number] Sodium Chloride (Nss 1000ml) 1,000 mls @ 80 mls/hr IV .[id number] GRETCHEN Stop: 03/01/19 10:29 Last Admin: 02/28/19 22:42 Dose: 80 mls/hr Documented by: [id number] Latanoprost (Xalatan Oph) 1 drops OP PM GRETCHEN Stop: 03/30/19 21:44 Last Admin: 02/28/19 22:41 Dose: 1 drops Documented by: [id number] Oxycodone HCl (Oxycontin) 30 mg PO Q12 GRETCHEN Stop: 03/14/19 21:44 Last Admin: 02/28/19 22:41 Dose: 30 mg Documented by: [id number] Ranitidine HCl (Zantac) 150 mg PO HS GRETCHEN Stop: 03/30/19 21:18 Last Admin: 02/28/19 22:41 Dose: 150 mg Documented by: [id number] Simvastatin (Zocor) 20 mg PO HS GRETCHEN Stop: 03/30/19 21:18 Last Admin: 02/28/19 22:41 Dose: 20 mg Documented by: [id number] Discontinued Medications Albuterol (Ventolin 0.083% 2.5mg/3ml) 5 mg NEB NOW STA Stop: 02/28/19 16:57 Last Admin: 02/28/19 17:07 Dose: 5 mg Documented by: [id number] Aspirin (Aspirin) 324 mg PO NOW STA Stop: 02/28/19 16:22 Last Admin: 02/28/19 16:49 Dose: 324 mg Documented by: [id number] Sodium Chloride (Nss 1000ml) 1,000 mls @ 125 mls/hr IV .Q8H GRETCHEN Stop: 03/30/19 16:14 Last Infusion: 02/28/19 22:49 Dose: 0 mls/hr Documented by: [id number] Admin: 02/28/19 16:49 Dose: 125 mls/hr Documented by: [id number] Calcium Gluconate 1,000 mg/ (Sodium Chloride) 60 mls @ 240 mls/hr IV NOW STA Stop: 02/28/19 16:51 Last Infusion: 02/28/19 19:19 Dose: 0 mls/hr Documented by: [id number] Admin: 02/28/19 17:05 Dose: 240 mls/hr Documented by: [id number] Cefepime HCl (Maxipime) 20 mls @ 5 mls/min IV NOW STA Stop: 02/28/19 17:24 Last Admin: 02/28/19 18:52 Dose: Not Given Documented by: [id number] Cefepime HCl 2,000 mg/ Syringe 20 mls @ 5 mls/min IV ONE ONE Stop: 02/28/19 18:03 Last Admin: 02/28/19 18:43 Dose: 5 mls/min Documented by: [id number] Sodium Polystyrene Sulfonate (Kayexalate) 15 gm PO NOW STA Stop: 02/28/19 16:38 Last Admin: 02/28/19 17:28 Dose: 15 gm Documented by: [id number] Medical Decision Making Medical Records Attestation: I reviewed the patient's medical records. Home Medications Current Medication List: was personally reviewed by me Laboratory Data Attestation: I reviewed the patient's lab results. Result diagrams: 02/28/19 16:26 02/28/19 16:26 Lab Results 02/28/19 02/28/19 02/28/19 Range/Units 15:53 16:26 16:26 WBC 7.98 (4.8-10.8) K/uL RBC 4.45 (4.2-5.4) M/uL Hgb 13.3 (12.0-16.0) g/dL POC Hgb (12.0-16.0) g/dl Hct 38.4 (37-47) % POC Hct (37-47) % MCV 86.3 (80-100) fL MCH 29.9 (25-34) pg MCHC 34.6 (32-36) g/dL RDW Std Deviation 49.0 H (36.4-46.3) fL RDW Coeff of Moi 15.8 H (11.5-14.5) % Plt Count 176 (130-400) K/uL MPV 11.2 H (7.4-10.4) fL Immature Gran % (Auto) 0.3 % Neut % (Auto) 88.7 % Lymph % (Auto) 4.8 % Coles % (Auto) 6.1 % Eos % (Auto) 0.1 % Baso % (Auto) 0.0 % Immature Gran # (Auto) 0.02 (0.00-0.02) K/uL Neut # (Auto) 7.08 H (1.4-6.5) K/uL Lymph # (Auto) 0.38 L (1.2-3.4) K/uL Coles # (Auto) 0.49 (0.11-0.59) K/uL Eos # (Auto) 0.01 (0-0.5) K/uL Baso # (Auto) 0.00 (0-0.2) K/uL Absolute Nucleated RBC 0.09 H (0-0) K/uL Nucleated RBC % (auto) 1.2 % PT 21.2 H (9.0-12.0) Seconds INR 2.2 H (0.9-1.1) APTT 35.3 H (21.0-31.0) Seconds PTT Ratio 1.3 VBG pH (7.36-7.41) VBG pCO2 (38-50) mmHg VBG pO2 mmHg VBG HCO3 mmol/L VBG O2 Saturation % VBG Base Excess mEq/L Barometric Pressure mm/Hg POC Sodium (135-144) mEq/L Sodium (136-145) mmol/L POC Potassium (3.3-5.0) mEq/L Potassium (3.5-5.1) mmol/L POC Chloride (101-112) mEq/L Chloride (98-107) mmol/L Carbon Dioxide (21-32) mmol/L POC Total CO2 (24-31) mEq/l Anion Gap (3-11) POC Anion Gap (16-25) mmol/L POC BUN (7-18) mg/dl BUN (7-18) mg/dl Creatinine (0.6-1.2) mg/dl POC Creatinine (0.6-1.3) mg/dl Est Cr Clr Drug Dosing Est GFR ( Amer) Est GFR (Non-Af Amer) BUN/Creatinine Ratio (10-20) Glucose (70-99) mg/dl POC Glucose 92 (70-99) POC Glucose (other) (70-99) mg/dl POC Lactic Acid Lenard (0.90-1.70) mmol/L Calcium (8.5-10.1) mg/dl POC Ioniz Calcium Shameka (1.12-1.32) mmol/l Total Bilirubin (0.2-1) mg/dl Direct Bilirubin (0-0.2) mg/dl AST (15-37) U/L ALT (12-78) U/L Alkaline Phosphatase (45-117) U/L POC Troponin I (0-0.045) ng/ml Troponin I (0-0.045) ng/ml Total Protein (6.4-8.2) gm/dl Albumin (3.4-5.0) gm/dl Lipase (73-393) U/L Urine Color Urine Appearance (Clear) Urine pH (4.5-7.5) Ur Specific Payette (1.000-1.030) Urine Protein (Negative) Urine Glucose (UA) (Negative) Urine Ketones (Negative) Urine Blood (Negative) Urine Nitrite (Negative) Urine Bilirubin (Negative) Urine Urobilinogen (Negative) Ur Leukocyte Esterase (Negative) Urine WBC (Auto) (0-5) /hpf Urine RBC (Auto) (0-4) /hpf U Hyaline Cast (Auto) (0-5) /lpf U Epithel Cells (Auto) (0-5) /lpf Urine Bacteria (Auto) (Negative) Granular Casts (0) /lpf Urine Yeast 02/28/19 02/28/19 02/28/19 Range/Units 16:26 16:27 16:28 WBC (4.8-10.8) K/uL RBC (4.2-5.4) M/uL Hgb (12.0-16.0) g/dL POC Hgb (12.0-16.0) g/dl Hct (37-47) % POC Hct (37-47) % MCV (80-100) fL MCH (25-34) pg MCHC (32-36) g/dL RDW Std Deviation (36.4-46.3) fL RDW Coeff of Moi (11.5-14.5) % Plt Count (130-400) K/uL MPV (7.4-10.4) fL Immature Gran % (Auto) % Neut % (Auto) % Lymph % (Auto) % Coles % (Auto) % Eos % (Auto) % Baso % (Auto) % Immature Gran # (Auto) (0.00-0.02) K/uL Neut # (Auto) (1.4-6.5) K/uL Lymph # (Auto) (1.2-3.4) K/uL Coles # (Auto) (0.11-0.59) K/uL Eos # (Auto) (0-0.5) K/uL Baso # (Auto) (0-0.2) K/uL Absolute Nucleated RBC (0-0) K/uL Nucleated RBC % (auto) % PT (9.0-12.0) Seconds INR (0.9-1.1) APTT (21.0-31.0) Seconds PTT Ratio VBG pH 7.30 L (7.36-7.41) VBG pCO2 39 (38-50) mmHg VBG pO2 39 mmHg VBG HCO3 19 mmol/L VBG O2 Saturation 65.5 % VBG Base Excess -7.0 mEq/L Barometric Pressure 731.3 mm/Hg POC Sodium (135-144) mEq/L Sodium 132 L (136-145) mmol/L POC Potassium (3.3-5.0) mEq/L Potassium 6.1 H* (3.5-5.1) mmol/L POC Chloride (101-112) mEq/L Chloride 95 L (98-107) mmol/L Carbon Dioxide 19 L (21-32) mmol/L POC Total CO2 (24-31) mEq/l Anion Gap 16.0 H (3-11) POC Anion Gap (16-25) mmol/L POC BUN (7-18) mg/dl BUN 64 H (7-18) mg/dl Creatinine 2.75 H (0.6-1.2) mg/dl POC Creatinine (0.6-1.3) mg/dl Est Cr Clr Drug Dosing Not Reportable Est GFR ( Amer) 18.7 Est GFR (Non-Af Amer) 16.1 BUN/Creatinine Ratio 23.4 H (10-20) Glucose 78 (70-99) mg/dl POC Glucose (70-99) POC Glucose (other) (70-99) mg/dl POC Lactic Acid Lenard (0.90-1.70) mmol/L Calcium 8.2 L (8.5-10.1) mg/dl POC Ioniz Calcium Shameka (1.12-1.32) mmol/l Total Bilirubin 1.8 H (0.2-1) mg/dl Direct Bilirubin 1.3 H (0-0.2) mg/dl AST 3231 H (15-37) U/L ALT 2943 H (12-78) U/L Alkaline Phosphatase 129 H (45-117) U/L POC Troponin I 0.49 H (0-0.045) ng/ml Troponin I 0.617 H* (0-0.045) ng/ml Total Protein 6.5 (6.4-8.2) gm/dl Albumin 3.2 L (3.4-5.0) gm/dl Lipase 853 H (73-393) U/L Urine Color Urine Appearance (Clear) Urine pH (4.5-7.5) Ur Specific Payette (1.000-1.030) Urine Protein (Negative) Urine Glucose (UA) (Negative) Urine Ketones (Negative) Urine Blood (Negative) Urine Nitrite (Negative) Urine Bilirubin (Negative) Urine Urobilinogen (Negative) Ur Leukocyte Esterase (Negative) Urine WBC (Auto) (0-5) /hpf Urine RBC (Auto) (0-4) /hpf U Hyaline Cast (Auto) (0-5) /lpf U Epithel Cells (Auto) (0-5) /lpf Urine Bacteria (Auto) (Negative) Granular Casts (0) /lpf Urine Yeast 02/28/19 02/28/19 02/28/19 Range/Units 16:31 16:35 16:39 WBC (4.8-10.8) K/uL RBC (4.2-5.4) M/uL Hgb (12.0-16.0) g/dL POC Hgb 15.0 (12.0-16.0) g/dl Hct (37-47) % POC Hct 44 (37-47) % MCV (80-100) fL MCH (25-34) pg MCHC (32-36) g/dL RDW Std Deviation (36.4-46.3) fL RDW Coeff of Moi (11.5-14.5) % Plt Count (130-400) K/uL MPV (7.4-10.4) fL Immature Gran % (Auto) % Neut % (Auto) % Lymph % (Auto) % Coles % (Auto) % Eos % (Auto) % Baso % (Auto) % Immature Gran # (Auto) (0.00-0.02) K/uL Neut # (Auto) (1.4-6.5) K/uL Lymph # (Auto) (1.2-3.4) K/uL Coles # (Auto) (0.11-0.59) K/uL Eos # (Auto) (0-0.5) K/uL Baso # (Auto) (0-0.2) K/uL Absolute Nucleated RBC (0-0) K/uL Nucleated RBC % (auto) % PT (9.0-12.0) Seconds INR (0.9-1.1) APTT (21.0-31.0) Seconds PTT Ratio VBG pH (7.36-7.41) VBG pCO2 (38-50) mmHg VBG pO2 mmHg VBG HCO3 mmol/L VBG O2 Saturation % VBG Base Excess mEq/L Barometric Pressure mm/Hg POC Sodium 128 L (135-144) mEq/L Sodium (136-145) mmol/L POC Potassium 6.2 H* (3.3-5.0) mEq/L Potassium (3.5-5.1) mmol/L POC Chloride 96 L (101-112) mEq/L Chloride (98-107) mmol/L Carbon Dioxide (21-32) mmol/L POC Total CO2 21 L (24-31) mEq/l Anion Gap (3-11) POC Anion Gap 17.0 (16-25) mmol/L POC BUN 61 H (7-18) mg/dl BUN (7-18) mg/dl Creatinine (0.6-1.2) mg/dl POC Creatinine 3.0 H (0.6-1.3) mg/dl Est Cr Clr Drug Dosing Est GFR ( Amer) Est GFR (Non-Af Amer) BUN/Creatinine Ratio (10-20) Glucose (70-99) mg/dl POC Glucose (70-99) POC Glucose (other) 83 (70-99) mg/dl POC Lactic Acid Elnard 2.76 H (0.90-1.70) mmol/L Calcium (8.5-10.1) mg/dl POC Ioniz Calcium Shameka 0.90 L (1.12-1.32) mmol/l Total Bilirubin (0.2-1) mg/dl Direct Bilirubin (0-0.2) mg/dl AST (15-37) U/L ALT (12-78) U/L Alkaline Phosphatase (45-117) U/L POC Troponin I (0-0.045) ng/ml Troponin I (0-0.045) ng/ml Total Protein (6.4-8.2) gm/dl Albumin (3.4-5.0) gm/dl Lipase (73-393) U/L Urine Color Dark Yellow Urine Appearance Turbid A (Clear) Urine pH 5.0 (4.5-7.5) Ur Specific Payette 1.024 (1.000-1.030) Urine Protein 2+ H (Negative) Urine Glucose (UA) Negative (Negative) Urine Ketones Trace H (Negative) Urine Blood 1+ H (Negative) Urine Nitrite Positive A (Negative) Urine Bilirubin 2+ H (Negative) Urine Urobilinogen Negative (Negative) Ur Leukocyte Esterase 3+ H (Negative) Urine WBC (Auto) >30 H (0-5) /hpf Urine RBC (Auto) 0-4 (0-4) /hpf U Hyaline Cast (Auto) 1-5 (0-5) /lpf U Epithel Cells (Auto) >30 H (0-5) /lpf Urine Bacteria (Auto) Negative (Negative) Granular Casts 1-5 H (0) /lpf Urine Yeast Not Reportable Imaging Data Radiologist's Impression: Radiology results as stated below per my review and the radiologist's interpretation: XR chest 1V portable CLINICAL HISTORY: Shortness of breath COMPARISON STUDY: 04/08/2017 FINDINGS: The heart is enlarged. There is elevation of interstitium suggesting mild pulmonary vascular congestion/fluid overload. There are more focal right basilar airspace opacities, atelectatic versus infectious/inflammatory. Clinical and radiographic follow-up is recommended. There is a suspected trace right pleural effusion[ IMPRESSION: 1. Cardiomegaly and radiographic evidence of mild congestive failure/fluid overload 2. More focal right basilar airspace opacities, atelectatic versus infectious/inflammatory. Clinical and radiographic follow-up is recommended. Electronically signed by: Mikal Jasso M.D. 02/28/2019 4:47 PM BILIARY ULTRASOUND CLINICAL HISTORY: Upper abdominal pain possible cholecystitis COMPARISON STUDY: CT scan dated April 2017 FINDINGS: The pancreas was poorly visualized. Evaluation of the pancreas is essentially nondiagnostic. The liver is heterogeneous in echotexture without evidence of focal mass. Evaluation gallbladder was limited due to overlying bowel gas. The patient was unable to lie in decubitus position. There is a negative sonographic Negro sign. There is no common bile duct dilatation. The common bile duct measures 3 mm. Is no right-sided hydronephrosis IMPRESSION: 1. Significantly limited study from technical standpoint secondary to a lack of optimal acoustic window within the patient's inability to lie in a decubitus position 2. No definite gallbladder calculi identified 3. No common bile duct dilatation 4. Heterogeneous hepatic echotexture Electronically signed by: Mikal Jasso M.D. 02/28/2019 6:40 PM ECG Data Attestation: I personally reviewed and interpreted this ECG as follows: Indication: SOB/dyspnea Rate (beats per minute): 99 Rhythm: sinus rhythm Findings: + other (GA 188, QRS 168, OTc 518, Discordant ST elevation in the B2 that is approximately 7 mm, Discordant ST elevation in the B3 approximately 4mm) and + LBBB Comparison ECG Date: from (October 2018 ) Change: the following changes noted (She is increasing in discordant ST elevation in lead B2 7mm today, and increasing discordant ST elevation in B3 is 4 mm today ) Blood Pressure Blood Pressure Findings: Normal blood pressure Blood Pressure Disposition: did not require urgent referral MDM Narrative 1610: Past medical records reviewed. The patient was evaluated in room C12B. A complete history and physical exam was performed. EKG done showed left bundle branch block with worsening discordant ST elevation in leads V2 and V3. I discussed the patients case with Dr. Lafleur Cardiology. He verbalized that he wants to be notified of the results from the patients Troponin test. He stated that when I receive the results to call him at extension [phone] and he will review the patients EKGs further. 1615: The patient's POC labs showed a sodium level of 128, a potassium level of 6.2, and a creatinine level of 3.0 up line from her baseline. Her POC lactic acid was 2.76. The patient was hypoglycemic upon arrival vis EMS. The patient will be treated with 1 gram of Calcium Gluconate, 15mg of Kayexalate, and 5 mg of Albuterol. We will hold off on insulin and D50W given the fact that the patient was hypoglycemia upon arrival and given 1 amp of D10W in the EMS. I discussed the patients case with Dr. Lafle[facility]. I made him aware of the patients POC lab results. He states that the EKG changes could be due to the patients electrolyte and Troponin levels. He states that there is no need for heart alert activation. 1658: The patients INR came back elevated at 2.2. I reviewed the patients medical history and she is not on Coumadin or any blood thinners. 1727: The patients labs confirm the she has elevated troponin and hyperkalemia. Her AST level is 3231, ALT level is 2943, Alk Phos level is 129, Troponin level is 0.617, and her Lipase level is 853. The patient is going to get an ultrasound of her abdomen. 1855: The patients US shows no gallstones or CBD dilatation. I discussed the patients case with [facility] hospitalist who accepts the admission of the patient. Impression & Plan Hyperkalemia, Acute kidney injury, Sepsis, UTI symptoms, Dehydration, Non-ST elevation (NSTEMI) myocardial infarction, Transaminitis Critical Care Time Critical Care Time: Yes Total Critical Care Time: 76 I have personally spent 76 minutes of critical care time in the direct management of this patient. This includes bedside care, interpretation of diagnostic studies, and testing, discussion with consultants, patient, and family members, and other required patient management activities. This 76 minutes is in excess of all separately billable procedures. Discharge Plan Visit Data *Final* Discharge Date/Time: 02/28/19 19:43 Chief Complaint: Shortness of Breath/Dyspnea ED Provider: Ravinder Silvestre Discharge Problem: Hyperkalemia, Acute kidney injury, Sepsis, UTI symptoms, Dehydration, Non-ST elevation (NSTEMI) myocardial infarction, Transaminitis Patient Disposition: Admitted As Inpatient Discharge Instructions Interventions: ED Discharge Assessment Last Done: 02/28/19 19:43 Discharge Problem: Sepsis Qualifiers: Sepsis type: sepsis due to unspecified organism Qualified Code(s): A41.9 - Sepsis, unspecified organism The scribe's documentation has been prepared under my direction and personally reviewed by me in its entirety. I confirm that the note above accurately reflects all work, treatment, procedures, and medical decision making performed by me.
[2019-02-28 23:19] LABS: BUN Creatinine Ratio 23.1 (10-20); Calcium 7.8 mg/dl (8.5-10.1); Creatinine Clr Calc Pharmacy 13.2 ml/min; Est GFR (African American) 16.9; Est GFR (Non-African American) 14.5; Potassium 5.9 mmol/L (3.5-5.1)
[2019-02-28 23:34] LABS: Troponin I 0.726 ng/ml (0-0.045)
[2019-03-01 03:12] LABS: Basophils # (auto) 0.01 K/uL (0-0.2); Basophils % (auto) 0.1 %; Eosinophils # (auto) 0.01 K/uL (0-0.5); Eosinophils % (auto) 0.1 %; Hematocrit (blood only) 38.6 % (37-47); Hemoglobin 13.4 g/dL (12.0-16.0); Immature Granulocytes # (auto) 0.03 K/uL (0.00-0.02); Immature Granulocytes % (auto) 0.4 %; Lymphocytes # (auto) 0.76 K/uL (1.2-3.4); Lymphocytes % (auto) 9.5 %; Mean Corpuscular Hgb Conc 34.7 g/dL (32-36); Mean Corpuscular Volume 86.7 fL (80-100); Mean Platelet Volume 10.2 fL (7.4-10.4); Monocytes # (auto) 0.68 K/uL (0.11-0.59); Monocytes % (auto) 8.5 %; Neutrophils # (auto) 6.49 K/uL (1.4-6.5); Neutrophils % (auto) 81.4 %; Nucleated RBC # (auto) 0.13 K/uL (0-0); Nucleated RBC % (auto) 1.6 %; Platelet Count 142 K/uL (130-400); RDW Coefficient of Variation 15.7 % (11.5-14.5); RDW Standard Deviation 48.9 fL (36.4-46.3); Red Blood Count 4.45 M/uL (4.2-5.4); White Blood Count 7.98 K/uL (4.8-10.8)
[2019-03-01 03:39] LABS: BUN Creatinine Ratio 23.6 (10-20); Bilirubin Direct 1.1 mg/dl (0-0.2); Calcium 7.4 mg/dl (8.5-10.1); Creatinine Clr Calc Pharmacy 13.3 ml/min; Est GFR (African American) 16.9; Est GFR (Non-African American) 14.6; Magnesium 1.9 mg/dl (1.8-2.4); Potassium 5.7 mmol/L (3.5-5.1)
[2019-03-01 04:04] LABS: Bilirubin,Total 1.7 mg/dl (0.2-1); Total Protein 6.1 gm/dl (6.4-8.2); Troponin I 0.85 ng/ml (0-0.045)
[2019-03-01] MEDS: LEVOTHYROXINE SODIUM 50 MCG TABLET PO SCH (05:53)
[2019-03-01] MEDS: predniSONE 5 MG TAB PO SCH (07:23)
[2019-03-01] MEDS: VENLAFAXINE HCL XR 150 MG CAPXR PO SCH (07:23)
[2019-03-01] MEDS: OXYCODONE HCL 15 MG TABCR (OXYCONTIN) PO SCH ×2 (07:23→21:11)
[2019-03-01] MEDS: LORATADINE 10 MG TAB PO SCH (07:23)
[2019-03-01] MEDS: ASPIRIN 81 MG ECTAB PO SCH (07:23)
[2019-03-01] MEDS: PANTOprazole 40 MG TAB PO SCH (07:24)
[2019-03-01] MEDS ORDERED: CARBOHYDRATES FOR HYPOGLYCEMIA PO PRN (08:05)
[2019-03-01 08:08] LABS: BUN Creatinine Ratio 23.7 (10-20); Calcium 7.7 mg/dl (8.5-10.1); Creatinine Clr Calc Pharmacy 13.1 ml/min; Est GFR (African American) 16.4; Est GFR (Non-African American) 14.1; Potassium 5.6 mmol/L (3.5-5.1)
[2019-03-01] MEDS ORDERED: DEXTROSE 50% 50 ML SYRINGE IV ONE (08:20)
[2019-03-01] MEDS ORDERED: SODIUM POLYSTYRENE SULFONATE 15G/60ML SUSP PO ONE ×2 (08:45→21:00)
[2019-03-01] MEDS ORDERED: CALCIUM GLUCONATE 10% 1,000 MG in SODIUM CHLORIDE 0.9% 50 ML IV ONE (08:45)
[2019-03-01] MEDS ORDERED: SODIUM BICARB 8.4% INJ 50 MEQ/50 ML SYR IV STA (08:58)
--- NOTE | 2019-03-01 09:19 | Cardiology Consultation ---
Date of Consultation March 01, 2019 Assessment & Plan (1) Cardiomyopathy: She presents now with a severe cardiomyopathy. Based on symptoms it is relatively recent in onset, as well as an echocardiogram in October of this year showing normal left ventricular function. A number of possibilities exist, this could be ischemic although she does not have any specific history to suggest that so that may be less likely, it could be due to left bundle branch block which by itself can cause that, it could be a idiopathic cardiomyopathy which presented as a left bundle branch block and is now progressed to left ventricular dysfunction. We will need to investigate for ischemic heart disease, a catheterization would be ideal but given her acute kidney failure that is not possible now so we could consider a nuclear stress test but I do not think it is urgent to make the diagnosis. Although her enzymes are slightly elevated it is not sufficient to consider this an acute ischemic event and I suspect it is due to demand ischemia and acute renal failure. For now I am going to observe. We need to consider addition of heart failure medications, she was on lisinopril as an outpatient but we should start a beta-thor here. (2) Acute systolic (congestive) heart failure: She seems to be in at least moderate congestive heart failure, based on her symptoms this has been for several weeks and she does not have peripheral edema. She is fluid overloaded and we should try to diuresis, I do not know that we can do that very effectively with her acute renal failure. I have not altered her medications. (3) Acute kidney failure, unspecified: She presents with acute renal failure, the cause is not clear. Her creatinine is increasing since admission. This is going to interfere with diuresis and makes a catheterization impossible at the moment. (4) Hyperkalemia: I assume this is due to her kidney failure. She was hyperkalemic, her potassium remains elevated but not dangerously so. (5) Left bundle branch block: She does have left bundle branch block which was identified in October 2018. At that time her left ventricular function was normal. There is no obvious cause for it at the time, therefore no specific treatment. That remains true, if it turns out that her cardiomyopathy is in part due to left bundle branch block and dyssynchrony (which is sometimes difficult to prove but we can exclude ischemic heart disease in any case) then biventricular pacing would certainly be an option. We should try medical therapy first. I do not believe she has had a Lyme screen, that is worth doing and I will order that. (6) Aortic stenosis: She has mild aortic stenosis which has been known in the past. This does not appear severe enough to affect her cardiac function and I do not think is a factor in her cardiomyopathy. There is no specific treatment for it at the moment. (7) Paroxysmal SVT (supraventricular tachycardia): She has no history of SVT (although she was asymptomatic here so she could have had it in the past) but had SVT this morning which required adenosine to terminate after about 20 minutes. It probably involves the AV node due to termination with adenosine. It may be present because of high catecholamine state now, but she may well if had it in the past and been unaware of it. It does conceivably explain her presentation with acute renal failure and liver abnormalities as well as cardiac enzyme abnormalities if she was hypotensive for a substantial period of time prior to admission. Since she was asymptomatic during the hospitalization that is conceivable. I would treat this with observa tion currently but would like to start beta-thor since she should be on one for cardiomyopathy in any case. That may help with the catecholamines and may be specifically treat the arrhythmia. If that does not work we can consider ablation and I would not do that now. History of Present Illness Reason for Consultation: CHF, left bundle branch block Attending Physician: Kayla Ba MD History of Present Illness This is a very pleasant 78-year-old woman who appears very fatigued but he is conversational and can provide history. Her daughter was present subsequently as well. She has a history of newly identified left bundle branch block in October 2018, she was hospitalized and echocardiography showed normal left ventricular function. She evidently was suffering from what was felt to be a respiratory infection 3 to 4 days ago and was treated as an outpatient, she did not improve and was brought to the emergency room on the afternoon of February 28, 2019. She describes symptoms of shortness of breath and fatigue for 3 or 4 days, lack of urine output for several days prior to admission and little else in the way of symptoms. She specifically denied lightheadedness or dizziness, palpitations, chest discomfort. In the emergency room she was noted to have a slightly elevated troponin, acute kidney injury, elevated liver function tests and continued left bundle branch block. No arrhythmia was identified at that time. She did not have significantly abnormal blood pressures or heart rates in the emergency room or initially following admission. After my initial evaluation at around 10:00 this morning she developed a rapid heart rate consistent with supraventricular tachycardia. She received adenosine with termination initially to atrial fibrillation and then that terminated to sinus rhythm. Interestingly she was asymptomatic with this rhythm, the blood pressure was not noted to be decreased during the arrhythmia. Allergies Allergy/AdvReac Type Severity Reaction Status Date / Time gabapentin Allergy Severe MOUTH Verified 02/28/19 17:22 MAGNO pregabalin Allergy Severe MOUTH Verified 02/28/19 17:22 MAGNO Home Medications Home Medications Medication Instructions Recorded Confirmed Type fluticasone propionate 1 spray INTRANASAL DAILY 10/15/18 02/28/19 History lisinopril [Zestril] 5 mg PO DAILY #1 tab 10/26/18 02/28/19 Rx phenazopyridine [Pyridium] 200 mg PO TID PRN #1 tab 10/26/18 02/28/19 Rx aspirin 81 mg tablet,delayed 81 mg PO DAILY 10/29/18 02/28/19 History release prednisone 5 mg tablet 5 mg PO DAILY #30 tab 01/14/19 02/28/19 Rx ranitidine 150 mg tablet 150 mg PO HS #30 tab 01/14/19 02/28/19 Rx latanoprost 0.005 % eye drops 1 drp OPHTHALMIC (EYE) PM #2.5 ml 01/21/19 02/28/19 Rx oxycodone 5 mg tablet 5 mg PO DAILY #7 tab 01/21/19 02/28/19 Rx oxycodone ER 30 mg tablet,crush 30 mg PO Q12H #60 tab 01/31/19 02/28/19 Rx resistant,extended release 12 hr pantoprazole 40 mg tablet,delayed 40 mg PO DAILY #90 tab 02/11/19 02/28/19 Rx release Voltaren 1 % topical gel 2 gm TOP QID #100 gm NS 02/22/19 02/28/19 Rx albuterol sulfate HFA 90 1 puffs INH Q4H PRN #18 gm 02/25/19 02/28/19 Rx mcg/actuation aerosol inhaler azithromycin 250 mg tablet See Rx Instructions PO .COMPLEX #6 02/25/19 02/28/19 Rx tab furosemide 20 mg tablet 20 mg PO QAM PRN #30 tab 02/25/19 02/28/19 Rx levothyroxine 50 mcg tablet 50 mcg PO DAILY #30 tab 02/25/19 02/28/19 Rx loratadine 10 mg tablet 10 mg PO DAILY #30 tab 02/25/19 02/28/19 Rx meclizine 25 mg tablet 25 mg PO TID PRN #30 tab 02/25/19 02/28/19 Rx prednisone 20 mg tablet 40 mg PO DAILY 5 Days #10 tab 02/25/19 02/28/19 Rx simvastatin 20 mg tablet 20 mg PO HS #30 tab 02/25/19 02/28/19 Rx venlafaxine ER 150 mg 150 mg PO DAILY #30 cap 02/25/19 02/28/19 Rx capsule,extended release 24 hr Patient History Medical History Diabetic nephropathy History of TIA (transient ischemic attack) Open-angle glaucoma History of peptic ulcer Anxiety Polymyalgia rheumatica Chronic venous insufficiency Diabetes mellitus type 2 with complications Esophageal dyskinesia Vitamin D deficiency Anemia Aortic stenosis Chronic diastolic heart failure Left bundle branch block GERD (gastroesophageal reflux disease) Osteoarthritis Depression Dyslipidemia Hypothyroid CKD (chronic kidney disease), stage III Diabetic neuropathy HTN (hypertension) Rectocele Closed right hip fracture (Resolved) Hematoma of right lower extremity (Resolved) Allergic rhinitis Chronic back pain Diverticulosis Glaucoma Hiatal hernia Lumbar disc disease Lumbar spinal stenosis Ovarian mass TIA (transient ischemic attack) Urinary incontinence Uterine fibroid Vertigo Surgical History H/O rectocele repair H/O repair of rotator cuff H/O umbilical hernia repair History of bilateral knee replacement S/P evacuation of hematoma October 2018, R hip Family History Father Diabetes Hypertension Sister Diabetes Brother Diabetes Mother Hypertension Social History Preferred Language: Chadian Communication Ability: Effective Visual Impairment: No Limitations Hearing Ability: Normal Kennel Supervisor Required: No Beliefs That Will Affect Care: None marital status: Current Living Situation: Spouse Current Living Situation Comment: Caregiver in AM, daughter at home from 899- 1999 current occupational status: retired Other Information That Helps Us Care for You: No Feels Safe at Home: Yes Safety Concerns: Feels Safe At This Time Smoking Status: Never smoker Tobacco Type: cigarettes Cigarettes Per Day: 3 Do You Dip or Chew Tobacco: No Second Hand Exposure: No Tobacco Cessation Education Requested by Patient: No Hx Alcohol Use: No Hx Substance Use: No Dental Care, Regularly: No Physical Activity Frequency: Does not Exercise Review of Systems Review of Systems: All systems reviewed & are unremarkable except as noted in HPI & below Physical Exam Physical Exam: Constitutional: Alert, cooperative and in no distress. She appears tired. HEENT: Unremarkable Neck: No jugular venous distention, carotid pulses are normal and equal bilaterally without bruits. Pulmonary: Decreased breath sounds bilaterally with crackles at both bases. Cardiac: Regular rhythm with a grade 2/6 crescendo decrescendo murmur at the base, no gallop or rub. Abdomen: Soft, nontender with normal bowel sounds. Extremities: No edema. Distal pulses intact. Neurologic: No focal findings. Gait was not tested. Skin: No rash, ecchymoses or petechiae. Results & Data Vital Signs (Past 12 Hours) Vital Signs Temp Pulse Resp BP Pulse Ox 03/01/19 07:52 36.9 C 98 H 20 113/90 93 03/01/19 03:45 36.7 C 80 20 122/85 Diagnostic Findings Electrocardiogram: This admission shows sinus rhythm with a left bundle branch block pattern. Similar to October 2018. This morning she went into some type of supraventricular tachycardia which I cannot identify specifically on ECG but was at a heart rate of about 165 bpm and very regular with her left bundle branch pattern, a subsequent electrocardiogram shows atrial fibrillation with a left bundle branch block pattern. Telemetry: Sinus rhythm in the 90s, very little heart rate variation except during the SVT when she had a rapid regular rate at about 165 bpm, after adenosine this converted to atrial fibrillation with a heart rate of about 100 briefly and then back into sinus rhythm. Echocardiogram: New severe left ventricular dysfunction with a left ventricular ejection fraction of 20 to 25%, left ventricular size is normal. She has mild aortic stenosis. Chest x-ray: Consistent with congestive heart failure
[2019-03-01] MEDS ORDERED: ADENOSINE IV SOLN 3 MG/ML 2 ML VIAL IV STA (09:59)
[2019-03-01] MEDS ORDERED: FUROSEMIDE 80 MG in SYRINGE 0 ML IV ONE (10:51)
[2019-03-01] MEDS ORDERED: METOPROLOL TARTRATE 1 MG/ML VIAL IV STA (10:53)
--- NOTE | 2019-03-01 10:56 | Critical Care Consultation ---
Date of Consultation March 01, 2019 Assessment & Plan (1) SVT (supraventricular tachycardia): Wide complex tachycardia that responded to adenosine consistent with SVT. Patient with severely reduced EF 20-25%, also with severe liver disease and severe kidney disease with discussions for possible need for dialysis. Cardiology was consulted to discuss if intervention would be of benefit to restore hibernated myocardium. Medical management currently complex as use of medications to improve hemodynamics could aggravate more arrhythmias. Patient is currently going to be monitored 2E and jewel bearing turner services will be available if requested. Rn Quality discussed code status with daughter who is medical decision maker and would like patient to be DNR/DNI. Supervising Physician Co-Signing Physician Notes Dr. Boyle was resident physician during care of patient. I separately evaluated patient for mcgarry portions of the history and the exam. I was present during the critical portion of medical decision making, and I discussed the case with the resident. I generally agree with the findings and plan. Is emergently called to the bedside for a wide-complex tachycardia. Per bedside report patient had new left bundle back in October 2017 which she was seen for a acute hip fracture. She underwent a open reduction and fixation and was subsequently discharged to rehab and then discharged home. She presented to the hospital with increasing exertional dyspnea and was found to have the left bundle as well as significant wall motion abnormalities on her echo which were previously not on a echo. She was also found to have an acute kidney injury as well as transaminitis. The patient converted out of what was most likely a supraventricular tachycardia with aberrancy secondary to the left bundle branch block after 12 of adenosine which was the second dose (first dose 6 mg). Patient's mental status improved and we had a discussion regarding end-of-life care as well as prognosis. Patient preferred and deferred to their daughter regarding these decisions. I contacted the patient's daughter by telephone and in discussion with her regarding multiple comorbidities and the likelihood of significant worsening of her medical conditions in the unlikely event of a successful resuscitation should she have a cardiac arrest that would be inconsistent with her mother's long-standing wishes and we felt it was best for her mother to be DO NOT RESUSCITATE in event of cardiac arrest. I discussed the patient briefly with Dr. Dorantes as to whether the patient should undergo additional cardiac work-up, Dr. Perez will be seeing the patient later. Also discussed with Dr. Wynne of possibly starting dialysis. There is discussion occurring at the family level regarding risks and benefits of dialysis and whether to proceed. I have personally spent 55 minutes of critical care time in the direct management of this patient. This is a life/limb threatening event. This includes time spent evaluating patient, direct bedside care, chart review, placing orders, interpretation of diagnostic studies, discussion with consultants, patient, and/or family members regarding treatment decisions, as well as other required patient management activities. This time is exclusive of all separately billable procedures, and teaching time and separate from and in addition to any other critical care service time. History of Present Illness Reason for Consultation: Wide complex tachycardia Requesting Physician: Kayla Ba MD Attending Physician: Kayla Ba MD History of Present Illness Rebecca Rodrigez is a 78 y/o female with several co-morbidities including current liver failure, kidney disease, DM2, cardiomyopathy with new onset of wide complex tachycardia. Patient was seen and evaluated. She has no chest pain. She is deferring code status to her daughter whom makes medical decisions. Daughter was reached by phone and requested patient be made DNR/DNI. Patient did receive adenosine for SVT which helped to resolve arrhythmia. Allergies Allergy/AdvReac Type Severity Reaction Status Date / Time gabapentin Allergy Severe MOUTH Verified 02/28/19 17:22 NARCISOS pregabalin Allergy Severe MOUTH Verified 02/28/19 17:22 MAGNO Home Medications Home Medications Medication Instructions Recorded Confirmed Type fluticasone propionate 1 spray INTRANASAL DAILY 10/15/18 02/28/19 History lisinopril [Zestril] 5 mg PO DAILY #1 tab 10/26/18 02/28/19 Rx phenazopyridine [Pyridium] 200 mg PO TID PRN #1 tab 10/26/18 02/28/19 Rx aspirin 81 mg tablet,delayed 81 mg PO DAILY 10/29/18 02/28/19 History release prednisone 5 mg tablet 5 mg PO DAILY #30 tab 01/14/19 02/28/19 Rx ranitidine 150 mg tablet 150 mg PO HS #30 tab 01/14/19 02/28/19 Rx latanoprost 0.005 % eye drops 1 drp OPHTHALMIC (EYE) PM #2.5 ml 01/21/19 02/28/19 Rx oxycodone 5 mg tablet 5 mg PO DAILY #7 tab 01/21/19 02/28/19 Rx oxycodone ER 30 mg tablet,crush 30 mg PO Q12H #60 tab 01/31/19 02/28/19 Rx resistant,extended release 12 hr pantoprazole 40 mg tablet,delayed 40 mg PO DAILY #90 tab 02/11/19 02/28/19 Rx release Voltaren 1 % topical gel 2 gm TOP QID #100 gm NS 02/22/19 02/28/19 Rx albuterol sulfate HFA 90 1 puffs INH Q4H PRN #18 gm 02/25/19 02/28/19 Rx mcg/actuation aerosol inhaler azithromycin 250 mg tablet See Rx Instructions PO .COMPLEX #6 02/25/19 02/28/19 Rx tab furosemide 20 mg tablet 20 mg PO QAM PRN #30 tab 02/25/19 02/28/19 Rx levothyroxine 50 mcg tablet 50 mcg PO DAILY #30 tab 02/25/19 02/28/19 Rx loratadine 10 mg tablet 10 mg PO DAILY #30 tab 02/25/19 02/28/19 Rx meclizine 25 mg tablet 25 mg PO TID PRN #30 tab 02/25/19 02/28/19 Rx simvastatin 20 mg tablet 20 mg PO HS #30 tab 02/25/19 02/28/19 Rx venlafaxine ER 150 mg 150 mg PO DAILY #30 cap 02/25/19 02/28/19 Rx capsule,extended release 24 hr Patient History Medical History Diabetic nephropathy History of TIA (transient ischemic attack) Open-angle glaucoma History of peptic ulcer Anxiety Polymyalgia rheumatica Chronic venous insufficiency Diabetes mellitus type 2 with complications Esophageal dyskinesia Vitamin D deficiency Anemia Aortic stenosis Chronic diastolic heart failure Left bundle branch block GERD (gastroesophageal reflux disease) Osteoarthritis Depression Dyslipidemia Hypothyroid CKD (chronic kidney disease), stage III Diabetic neuropathy HTN (hypertension) Rectocele Closed right hip fracture (Resolved) Hematoma of right lower extremity (Resolved) Allergic rhinitis Chronic back pain Diverticulosis Glaucoma Hiatal hernia Lumbar disc disease Lumbar spinal stenosis Ovarian mass TIA (transient ischemic attack) Urinary incontinence Uterine fibroid Vertigo Surgical History H/O rectocele repair H/O repair of rotator cuff H/O umbilical hernia repair History of bilateral knee replacement S/P evacuation of hematoma October 2018, R hip Family History Father Diabetes Hypertension Sister Diabetes Brother Diabetes Mother Hypertension Social History Preferred Language: Egyptian Communication Ability: Effective Visual Impairment: No Limitations Hearing Ability: Normal Master Printer Required: No Beliefs That Will Affect Care: None marital status: Current Living Situation: Spouse Current Living Situation Comment: Caregiver in AM, daughter at home from 0900- 1999 current occupational status: retired Other Information That Helps Us Care for You: No Feels Safe at Home: Yes Safety Concerns: Feels Safe At This Time Smoking Status: Never smoker Tobacco Type: cigarettes Cigarettes Per Day: 3 Do You Dip or Chew Tobacco: No Second Hand Exposure: No Tobacco Cessation Education Requested by Patient: No Hx Alcohol Use: No Hx Substance Use: No Dental Care, Regularly: No Physical Activity Frequency: Does not Exercise Review of Systems Review of Systems: All systems reviewed & are unremarkable except as noted in HPI & below Physical Exam Constitutional: + ill appearing Neck: normal visual inspection and trachea midline Respiratory: no respiratory distress and does not use accessory muscles Cardiovascular: Rate/Rhythm: + tachycardic Musculoskeletal: Head/Neck/Chest: normocephalic and head atraumatic Skin: no rashes, warm and dry Neurologic: moves all extremities and awake Psychiatric: Orientation: alert, oriented to person and oriented to place Results & Data Vital Signs (Past 12 Hours) Vital Signs Temp Pulse Resp BP Pulse Ox 03/01/19 07:52 36.9 C 98 H 20 113/90 93 03/01/19 03:45 36.7 C 80 20 122/85 PG Care Time/CCT Total # of Minutes Spent Total Time Spent: 55 Total Time Spent with Patient: Total time spent is greater than 50% in coordination of care (as documented) at patient's floor/unit and/or counseling patient: Resident Activity Tracking Resident Involvement: Resident Care Provided Care Provided: Adult Hospital Medicine (ICU)
[2019-03-01] MEDS ORDERED: PHYTONADIONE 2.5 MG in SODIUM CHLORIDE 0.9% 50 ML IV ONE (11:15)
[2019-03-01] MEDS: OXYCODONE HCL IR 5 MG TAB (IMMEDIATE RELEASE) PO SCH (11:26)
[2019-03-01] MEDS: DOXYCYCLINE HYCLATE 100 MG in DEXTROSE 5% 100 ML IV SCH ×2 (11:45→21:11)
--- NOTE | 2019-03-01 12:46 | Gastrointestinal Consultation ---
Date of Consultation March 01, 2019 Assessment & Plan (1) Elevated LFTs: Elevation likely from shock liver. Will obtain serologic markers to rule out viral etiology, etc. Supervising Physician Co-Signing Physician Notes Late entry: I have seen and examined the patient on 03/01 with Amy Mehta PA-C whose note reflects our findings and plan. History of Present Illness Reason for Consultation: Elevated LFTs Requesting Physician: Kayla Ba MD Attending Physician: Tiffany Sullivan DO History of Present Illness 78 year old female with a hx of HTN, dyslipidemia, Aortic stenosis, CKD, DM, T IA, PMR, and others listed below, admitted with increasing weakness and found to have PNA, ARF and elevated troponin. We have been asked to see her due to significantly elevated LFTs. She did report a pressure-like, diffuse abdominal pain recently, according to chart notes, but has not reported any abdominal pain since admission, according to nursing staff. Unable to get much of a history as patient not responsive to questions on interview. No family available at the time of my interview. Lab work shows transaminases >2000, a Tbili of 1.7 and ALP of 123. RUQ ultrasound was unremarkable. CT abdomen showed cholelithiasis. Had an episode today of SVT and echo is showing an EF of 20-25% which is new since October. Allergies Allergy/AdvReac Type Severity Reaction Status Date / Time gabapentin Allergy Severe MOUTH Verified 02/28/19 17:22 SWELLS pregabalin Allergy Severe MOUTH Verified 02/28/19 17:22 SWELLS Home Medications Home Medications Medication Instructions Recorded Confirmed Type fluticasone propionate 1 spray INTRANASAL DAILY 10/15/18 02/28/19 History lisinopril [Zestril] 5 mg PO DAILY #1 tab 10/26/18 02/28/19 Rx phenazopyridine [Pyridium] 200 mg PO TID PRN #1 tab 10/26/18 02/28/19 Rx aspirin 81 mg tablet,delayed 81 mg PO DAILY 10/29/18 02/28/19 History release prednisone 5 mg tablet 5 mg PO DAILY #30 tab 01/14/19 02/28/19 Rx ranitidine 150 mg tablet 150 mg PO HS #30 tab 01/14/19 02/28/19 Rx latanoprost 0.005 % eye drops 1 drp OPHTHALMIC (EYE) PM #2.5 ml 01/21/19 02/28/19 Rx oxycodone 5 mg tablet 5 mg PO DAILY #7 tab 01/21/19 02/28/19 Rx oxycodone ER 30 mg tablet,crush 30 mg PO Q12H #60 tab 01/31/19 02/28/19 Rx resistant,extended release 12 hr pantoprazole 40 mg tablet,delayed 40 mg PO DAILY #90 tab 02/11/19 02/28/19 Rx release Voltaren 1 % topical gel 2 gm TOP QID #100 gm NS 02/22/19 02/28/19 Rx albuterol sulfate HFA 90 1 puffs INH Q4H PRN #18 gm 02/25/19 02/28/19 Rx mcg/actuation aerosol inhaler azithromycin 250 mg tablet See Rx Instructions PO .COMPLEX #6 02/25/19 02/28/19 Rx tab furosemide 20 mg tablet 20 mg PO QAM PRN #30 tab 02/25/19 02/28/19 Rx levothyroxine 50 mcg tablet 50 mcg PO DAILY #30 tab 02/25/19 02/28/19 Rx loratadine 10 mg tablet 10 mg PO DAILY #30 tab 02/25/19 02/28/19 Rx meclizine 25 mg tablet 25 mg PO TID PRN #30 tab 02/25/19 02/28/19 Rx simvastatin 20 mg tablet 20 mg PO HS #30 tab 02/25/19 02/28/19 Rx venlafaxine ER 150 mg 150 mg PO DAILY #30 cap 02/25/19 02/28/19 Rx capsule,extended release 24 hr Patient History Medical History Diabetic nephropathy History of TIA (transient ischemic attack) Open-angle glaucoma History of peptic ulcer Anxiety Polymyalgia rheumatica Chronic venous insufficiency Diabetes mellitus type 2 with complications Esophageal dyskinesia Vitamin D deficiency Anemia Aortic stenosis Chronic diastolic heart failure Left bundle branch block GERD (gastroesophageal reflux disease) Osteoarthritis Depression Dyslipidemia Hypothyroid CKD (chronic kidney disease), stage III Diabetic neuropathy HTN (hypertension) Rectocele Closed right hip fracture (Resolved) Hematoma of right lower extremity (Resolved) Allergic rhinitis Chronic back pain Diverticulosis Glaucoma Hiatal hernia Lumbar disc disease Lumbar spinal stenosis Ovarian mass TIA (transient ischemic attack) Urinary incontinence Uterine fibroid Vertigo Surgical History H/O rectocele repair H/O repair of rotator cuff H/O umbilical hernia repair History of bilateral knee replacement S/P evacuation of hematoma October 2018, R hip Family History Father Diabetes Hypertension Sister Diabetes Brother Diabetes Mother Hypertension Social History Preferred Language: Irish Communication Ability: Effective Visual Impairment: No Limitations Hearing Ability: Normal Palaeontologist Required: No Beliefs That Will Affect Care: None marital status: Current Living Situation: Spouse Current Living Situation Comment: Caregiver in AM, daughter at home from 899- 1999 current occupational status: retired Other Information That Helps Us Care for You: No Feels Safe at Home: Yes Safety Concerns: Feels Safe At This Time Smoking Status: Never smoker Tobacco Type: cigarettes Cigarettes Per Day: 3 Do You Dip or Chew Tobacco: No Second Hand Exposure: No Tobacco Cessation Education Requested by Patient: No Hx Alcohol Use: No Hx Substance Use: No Dental Care, Regularly: No Physical Activity Frequency: Does not Exercise Results & Data Vital Signs (Past 12 Hours) Vital Signs Temp Pulse Pulse Resp BP BP Pulse Ox 03/01/19 12:00 36.5 C 96 H 20 119/85 97 03/01/19 11:06 96 H 141/104 H 03/01/19 07:52 36.9 C 98 H 20 113/90 93 03/01/19 03:45 36.7 C 80 20 122/85 Laboratory Results - last 24 hr 02/28/19 02/28/19 02/28/19 15:53 16:26 16:26 WBC 7.98 RBC 4.45 Hgb 13.3 POC Hgb Hct 38.4 POC Hct MCV 86.3 MCH 29.9 MCHC 34.6 RDW Std Deviation 49.0 H RDW Coeff of Moi 15.8 H Plt Count 176 MPV 11.2 H Immature Gran % (Auto) 0.3 Neut % (Auto) 88.7 Lymph % (Auto) 4.8 [place] % (Auto) 6.1 Eos % (Auto) 0.1 Baso % (Auto) 0.0 Immature Gran # (Auto) 0.02 Neut # (Auto) 7.08 H Lymph # (Auto) 0.38 L [place] # (Auto) 0.49 Eos # (Auto) 0.01 Baso # (Auto) 0.00 Absolute Nucleated RBC 0.09 H Nucleated RBC % (auto) 1.2 PT 21.2 H INR 2.2 H APTT 35.3 H PTT Ratio 1.3 VBG pH VBG pCO2 VBG pO2 VBG HCO3 VBG O2 Saturation VBG Base Excess Barometric Pressure POC Sodium Sodium POC Potassium Potassium POC Chloride Chloride Carbon Dioxide POC Total CO2 Anion Gap POC Anion Gap POC BUN BUN Creatinine POC Creatinine Est Cr Clr Drug Dosing Est GFR ( Amer) Est GFR (Non-Af Amer) BUN/Creatinine Ratio Glucose POC Glucose 92 POC Glucose (other) POC Lactic Acid [place] Calcium POC Ioniz Calcium [place] Magnesium Total Bilirubin Direct Bilirubin AST ALT Alkaline Phosphatase POC Troponin I Troponin I Total Protein Albumin Lipase TSH Urine Color Urine Appearance Urine pH Ur Specific [place] Urine Protein Urine Glucose (UA) Urine Ketones Urine Blood Urine Nitrite Urine Bilirubin Urine Urobilinogen Ur Leukocyte Esterase Urine WBC (Auto) Urine RBC (Auto) U Hyaline Cast (Auto) U Epithel Cells (Auto) Urine Bacteria (Auto) Granular Casts Urine Yeast 02/28/19 02/28/19 02/28/19 16:26 16:27 16:28 WBC RBC Hgb POC Hgb Hct POC Hct MCV MCH MCHC RDW Std Deviation RDW Coeff of Moi Plt Count MPV Immature Gran % (Auto) Neut % (Auto) Lymph % (Auto) [place] % (Auto) Eos % (Auto) Baso % (Auto) Immature Gran # (Auto) Neut # (Auto) Lymph # (Auto) [place] # (Auto) Eos # (Auto) Baso # (Auto) Absolute Nucleated RBC Nucleated RBC % (auto) PT INR APTT PTT Ratio VBG pH 7.30 L VBG pCO2 39 VBG pO2 39 VBG HCO3 19 VBG O2 Saturation 65.5 VBG Base Excess -7.0 Barometric Pressure 731.3 POC Sodium Sodium 132 L POC Potassium Potassium 6.1 H* POC Chloride Chloride 95 L Carbon Dioxide 19 L POC Total CO2 Anion Gap 16.0 H POC Anion Gap POC BUN BUN 64 H Creatinine 2.75 H POC Creatinine Est Cr Clr Drug Dosing Not Reportable Est GFR ( Amer) 18.7 Est GFR (Non-Af Amer) 16.1 BUN/Creatinine Ratio 23.4 H Glucose 78 POC Glucose POC Glucose (other) POC Lactic Acid Lenard Calcium 8.2 L POC Ioniz Calcium [place] Magnesium Total Bilirubin 1.8 H Direct Bilirubin 1.3 H AST 3231 H ALT 2943 H Alkaline Phosphatase 129 H POC Troponin I 0.49 H Troponin I 0.617 H* Total Protein 6.5 Albumin 3.2 L Lipase 853 H TSH Urine Color Urine Appearance Urine pH Ur Specific [place] Urine Protein Urine Glucose (UA) Urine Ketones Urine Blood Urine Nitrite Urine Bilirubin Urine Urobilinogen Ur Leukocyte Esterase Urine WBC (Auto) Urine RBC (Auto) U Hyaline Cast (Auto) U Epithel Cells (Auto) Urine Bacteria (Auto) Granular Casts Urine Yeast 02/28/19 02/28/19 02/28/19 16:31 16:35 16:39 WBC RBC Hgb POC Hgb 15.0 Hct POC Hct 44 MCV MCH MCHC RDW Std Deviation RDW Coeff of Moi Plt Count MPV Immature Gran % (Auto) Neut % (Auto) Lymph % (Auto) [place] % (Auto) Eos % (Auto) Baso % (Auto) Immature Gran # (Auto) Neut # (Auto) Lymph # (Auto) [place] # (Auto) Eos # (Auto) Baso # (Auto) Absolute Nucleated RBC Nucleated RBC % (auto) PT INR APTT PTT Ratio VBG pH VBG pCO2 VBG pO2 VBG HCO3 VBG O2 Saturation VBG Base Excess Barometric Pressure POC Sodium 128 L Sodium POC Potassium 6.2 H* Potassium POC Chloride 96 L Chloride Carbon Dioxide POC Total CO2 21 L Anion Gap POC Anion Gap 17.0 POC BUN 61 H BUN Creatinine POC Creatinine 3.0 H Est Cr Clr Drug Dosing Est GFR ( Amer) Est GFR (Non-Af Amer) BUN/Creatinine Ratio Glucose POC Glucose POC Glucose (other) 83 POC Lactic Acid Lenard 2.76 H Calcium POC Ioniz Calcium [place] 0.90 L Magnesium Total Bilirubin Direct Bilirubin AST ALT Alkaline Phosphatase POC Troponin I Troponin I Total Protein Albumin Lipase TSH Urine Color Dark Yellow Urine Appearance Turbid A Urine pH 5.0 Ur Specific [place] 1.024 Urine Protein 2+ H Urine Glucose (UA) Negative Urine Ketones Trace H Urine Blood 1+ H Urine Nitrite Positive A Urine Bilirubin 2+ H Urine Urobilinogen Negative Ur Leukocyte Esterase 3+ H Urine WBC (Auto) >30 H Urine RBC (Auto) 0-4 U Hyaline Cast (Auto) 1-5 U Epithel Cells (Auto) >30 H Urine Bacteria (Auto) Negative Granular Casts 1-5 H Urine Yeast Not Reportable 02/28/19 03/01/19 03/01/19 22:52 02:56 02:56 WBC 7.98 RBC 4.45 Hgb 13.4 POC Hgb Hct 38.6 POC Hct MCV 86.7 MCH 30.1 MCHC 34.7 RDW Std Deviation 48.9 H RDW Coeff of Moi 15.7 H Plt Count 142 MPV 10.2 Immature Gran % (Auto) 0.4 Neut % (Auto) 81.4 Lymph % (Auto) 9.5 [place] % (Auto) 8.5 Eos % (Auto) 0.1 Baso % (Auto) 0.1 Immature Gran # (Auto) 0.03 H Neut # (Auto) 6.49 Lymph # (Auto) 0.76 L [place] # (Auto) 0.68 H Eos # (Auto) 0.01 Baso # (Auto) 0.01 Absolute Nucleated RBC 0.13 H Nucleated RBC % (auto) 1.6 PT INR APTT PTT Ratio VBG pH VBG pCO2 VBG pO2 VBG HCO3 VBG O2 Saturation VBG Base Excess Barometric Pressure POC Sodium Sodium 131 L 130 L POC Potassium Potassium 5.9 H 5.7 H POC Chloride Chloride 95 L 95 L Carbon Dioxide 21 19 L POC Total CO2 Anion Gap 15.0 H 16.0 H POC Anion Gap POC BUN BUN 69 H 70 H Creatinine 2.99 H 2.98 H POC Creatinine Est Cr Clr Drug Dosing 13.2 13.3 Est GFR ( Amer) 16.9 16.9 Est GFR (Non-Af Amer) 14.5 14.6 BUN/Creatinine Ratio 23.1 H 23.6 H Glucose 76 78 POC Glucose POC Glucose (other) POC Lactic Acid [place] Calcium 7.8 L 7.4 L POC Ioniz Calcium [place] Magnesium 1.9 Total Bilirubin 1.7 H Direct Bilirubin 1.1 H AST 2639 H ALT 2717 H Alkaline Phosphatase 123 H POC Troponin I Troponin I 0.726 H* 0.850 H* Total Protein 6.1 L Albumin 3.0 L Lipase TSH 1.390 Urine Color Urine Appearance Urine pH Ur Specific [place] Urine Protein Urine Glucose (UA) Urine Ketones Urine Blood Urine Nitrite Urine Bilirubin Urine Urobilinogen Ur Leukocyte Esterase Urine WBC (Auto) Urine RBC (Auto) U Hyaline Cast (Auto) U Epithel Cells (Auto) Urine Bacteria (Auto) Granular Casts Urine Yeast 03/01/19 03/01/19 03/01/19 07:16 07:49 07:50 WBC RBC Hgb POC Hgb Hct POC Hct MCV MCH MCHC RDW Std Deviation RDW Coeff of Moi Plt Count MPV Immature Gran % (Auto) Neut % (Auto) Lymph % (Auto) [place] % (Auto) Eos % (Auto) Baso % (Auto) Immature Gran # (Auto) Neut # (Auto) Lymph # (Auto) [place] # (Auto) Eos # (Auto) Baso # (Auto) Absolute Nucleated RBC Nucleated RBC % (auto) PT INR APTT PTT Ratio VBG pH VBG pCO2 VBG pO2 VBG HCO3 VBG O2 Saturation VBG Base Excess Barometric Pressure POC Sodium Sodium 132 L POC Potassium Potassium 5.6 H POC Chloride Chloride 98 Carbon Dioxide 18 L POC Total CO2 Anion Gap 16.0 H POC Anion Gap POC BUN BUN 73 H Creatinine 3.06 H POC Creatinine Est Cr Clr Drug Dosing 13.1 Est GFR ( Amer) 16.4 Est GFR (Non-Af Amer) 14.1 BUN/Creatinine Ratio 23.7 H Glucose 62 L POC Glucose 59 L* 63 L* POC Glucose (other) POC Lactic Acid [place] Calcium 7.7 L POC Ioniz Calcium [place] Magnesium Total Bilirubin Direct Bilirubin AST ALT Alkaline Phosphatase POC Troponin I Troponin I Total Protein Albumin Lipase TSH Urine Color Urine Appearance Urine pH Ur Specific [place] Urine Protein Urine Glucose (UA) Urine Ketones Urine Blood Urine Nitrite Urine Bilirubin Urine Urobilinogen Ur Leukocyte Esterase Urine WBC (Auto) Urine RBC (Auto) U Hyaline Cast (Auto) U Epithel Cells (Auto) Urine Bacteria (Auto) Granular Casts Urine Yeast 03/01/19 03/01/19 03/01/19 08:15 08:42 10:53 WBC RBC Hgb POC Hgb Hct POC Hct MCV MCH MCHC RDW Std Deviation RDW Coeff of Moi Plt Count MPV Immature Gran % (Auto) Neut % (Auto) Lymph % (Auto) [place] % (Auto) Eos % (Auto) Baso % (Auto) Immature Gran # (Auto) Neut # (Auto) Lymph # (Auto) [place] # (Auto) Eos # (Auto) Baso # (Auto) Absolute Nucleated RBC Nucleated RBC % (auto) PT INR APTT PTT Ratio VBG pH VBG pCO2 VBG pO2 VBG HCO3 VBG O2 Saturation VBG Base Excess Barometric Pressure POC Sodium Sodium POC Potassium Potassium POC Chloride Chloride Carbon Dioxide POC Total CO2 Anion Gap POC Anion Gap POC BUN BUN Creatinine POC Creatinine Est Cr Clr Drug Dosing Est GFR ( Amer) Est GFR (Non-Af Amer) BUN/Creatinine Ratio Glucose POC Glucose 59 L* 181 H 160 H POC Glucose (other) POC Lactic Acid [place] Calcium POC Ioniz Calcium [place] Magnesium Total Bilirubin Direct Bilirubin AST ALT Alkaline Phosphatase POC Troponin I Troponin I Total Protein Albumin Lipase TSH Urine Color Urine Appearance Urine pH Ur Specific [place] Urine Protein Urine Glucose (UA) Urine Ketones Urine Blood Urine Nitrite Urine Bilirubin Urine Urobilinogen Ur Leukocyte Esterase Urine WBC (Auto) Urine RBC (Auto) U Hyaline Cast (Auto) U Epithel Cells (Auto) Urine Bacteria (Auto) Granular Casts Urine Yeast RUQ ultrasound: IMPRESSION: 1. Significantly limited study from technical standpoint secondary to a lack of optimal acoustic window within the patient's inability to lie in a decubitus position 2. No definite gallbladder calculi identified 3. No common bile duct dilatation 4. Heterogeneous hepatic echotexture CT abdomen: IMPRESSION: 1. Bilateral pleural effusions with right middle lobe and right lower lobe airspace opacities 2. Cholelithiasis 3. Pancreatic atrophy 4. No hepatic or splenic masses identified given the limitations of a noncontrast study 5. No evidence of pathologic adenopathy 6. Advanced degenerative changes within the lumbar spine with multilevel spinal stenosis
[2019-03-01 13:19] LABS: INR 2.9 (0.9-1.1); Prothrombin Time 27.2 Seconds (9.0-12.0)
[2019-03-01] MEDS ORDERED: PIPERACILL/TAZOBAC CONSULT ACTIVE PRN (13:27)
[2019-03-01 13:36] LABS: BUN Creatinine Ratio 24.4 (10-20); Calcium 7.5 mg/dl (8.5-10.1); Creatinine Clr Calc Pharmacy 12.8 ml/min; Est GFR (Non-African American) 13.8
[2019-03-01 13:54] LABS: Globulin 3.1 gm/dl (2.5-4.0); Potassium 5.6 mmol/L (3.5-5.1); Total Protein 6.1 gm/dl (6.4-8.2); Troponin I 0.642 ng/ml (0-0.045)
[2019-03-01 13:57] LABS: Lyme Ab IgG w/WB Rflx Negative (Negative); Lyme Ab IgM w/WB Rflx Negative (Negative)
[2019-03-01] MEDS ORDERED: PIPERACILLIN/TAZOBACTAM 3.375 GM in DEXTROSE 5% 100 ML IV ONE (14:00)
[2019-03-01 14:37] LABS: Hepatitis B Surface Antigen Neg (Neg)
[2019-03-01 15:06] LABS: Hepatitis C IgG 13Yrs+Old_Rflx Neg (Neg)
--- NOTE | 2019-03-01 15:13 | Hospitalist Progress Note ---
Date of Service March 01, 2019 Assessment & Plan (1) Sepsis: - Presented with cough and SOB following recent diagnosis of acute bronchitis. -CT of the chest does show infiltrates in the right middle and right lower lobes, however perhaps this could be asymmetric pulmonary edema? -Also with evidence of enterococcus UTI - Tachycardic (SVT as noted below), elevated LFTs, acute renal failure noted on admission, as well as CHF-evidence of multisystem organ failure. - Unclear etiology -- concern for recent cardiac event vs. ATN in setting of hypotension at home vs. infection (PNA vs. UTI) (2) Elevated lactic acid level: - Lactic acid level trending up, was 3.1. Could be secondary to worsening renal failure and liver failure -Will trend this evening. (3) High anion gap metabolic acidosis: - In setting of acute renal failure; did receive amp of sodium bicarb this morning. - Nephrology following, may require initiation of dialysis if no improvement in urine output and electrolytes. - Holding IV fluids due to CHF exacerbation/volume overload. - Monitor BMP q8hr. (4) Acute kidney injury: - Creatinine trending upward, well above baseline, with limited urine output. With hyperkalemia, anion gap metabolic acidosis, and oliguria - <50 cc urine output following Lasix 80 mg IV this morning; will start Lasix drip at 5 mg/hr. - Flowers for accurate I/Os and in case of obstruction - Nephrology following, may require initiation of dialysis in near future-family and patient state that they would only be agreeable to dialysis if it is meant to be temporary. - Renally dose all meds. (5) Hyperkalemia: - K level 5.6 in setting of ARF/metabolic acidosis. Received calcium gluconate and Kayexalate in the ER upon admission - Hold further treatment for hyperkalemia at this time, monitor q6hr. (6) RLL pneumonia: - Chest CT with RML and RLL opacities concerning for infection. - Continue Zosyn (changed from Rocephin due to enterococcus in the urine) and Doxycycline for empiric coverage. (7) UTI (urinary tract infection): - UC positive for Enterococcus species; on Zosyn IV as noted above. -Follow urine culture for final sensitivities (8) Elevated troponin I level: - Trop peaked at 0.850 during this admission; concern for recent cardiac event in setting of severely reduced EF compared to recent TTE and new wall motion abnormalities. - Will continue to trend serial EKGs. - Cardiology consulted; no anticipated acute intervention at this time, but may need cardiac catheterization especially if going to need dialysis anyway, then a dye load would not be an issue from a renal perspective (9) Paroxysmal SVT (supraventricular tachycardia): - SVT noted this morning around 10 am with heart rate in the 170s, she was hypotensive and her mentation was decreased-- received Adenosine 6 mg followed by 12 mg with resolution. - Concern for episodes of SVT at home leading to hypotensive episodes --> ATN with ARF as a result. However, she was clearly symptomatic with this and it is likely that if this had happened at home, she would have been brought into the ER sooner by her family - Will continue to monitor on telemetry. - Cardiology following, appreciate input. -Starting carvedilol today as per cardiology (10) Elevated LFTs: - LFTs are significantly elevated, as well as elevated INR, and platelets trending downward-- related to septic shock vs. hepatic congestion from CHF and cardiogenic shock - GI consulted, appreciate input. - Viral studies, including Parvovirus, EBV, CMV, Hepatitis, HSV, are pending. - Monitor LFTs qAM. -Treating heart failure (11) Acute systolic (congestive) heart failure: - Echo on admission showed EF 20-25%, severe global hypokinesis to akinesis sparing only the base to mid lateral wall. Could be ischemic in nature given that she presented with nausea and vomiting a few days prior to admission-perhaps this was an acute coronary syndrome several days prior to admission? - Chest CT with bilateral pleural effusions. - Monitor net I/O's and daily weights. - Currently receiving Lasix drip at 5 mg/hr due to oliguria. - Holding home ACEI in setting of ARF; adding beta thor as above. -Is on aspirin 81 daily -Appreciate cardiology consultation -Lyme titer negative (12) Left bundle branch block: - First noted on EKG in October 2018; cardiac work up as noted above. -Should have ischemic evaluation at some point in the near future (13) Cardiomyopathy: - Concern for viral vs. ischemic -- Lyme titer negative, along with other viral studies, pending. - Echo showed global severe hypokinesis to akinesis sparing only the base to mid lateral wall. (14) Aortic stenosis: - Mild, noted on TTE. (15) Prolonged INR: - INR is prolonged in setting of liver dysfunction. - Received Vit K 2.5 mg x 1 dose; will likely repeat dose based on morning levels. (16) Polymyalgia rheumatica: - Continue home meds -- including Prednisone 5 mg daily, no indication for stress dose steroids. (17) GERD (gastroesophageal reflux disease): - Zantac and PPI. (18) Depression: - Continue Effexor as prescribed. (19) Dyslipidemia: - Continue Aspirin daily and Simvastatin as prescribed. (20) Hypothyroid: TSH here is normal at 1.39 - Continue Levothyroxine 50 mcg daily as prescribed. (21) HTN (hypertension): - Holding home Lisinopril in setting of ARF. -Adding beta thor in setting of SVT as above. (22) Anxiety: - Effexor. (23) Open-angle glaucoma: - Continue home eye drops. (24) Hyponatremia: - Na level near baseline, was 132. Will continue to monitor labs q8hr. Also likely related to renal failure (25) DVT prophylaxis: - SCDs; holding pharmacologic ppx as INR is already significantly elevated from liver failure Dispo: PCU/Tele; ICU following, low threshold for upgrade. Updated her family with plan of care from 1:15 to 1:45 pm. After lengthy discussion with the patient and her daughter as per the int ensivist, she has been changed to a DNR/DNI at this time Supervising Physician Co-Signing Physician Notes PA Supervision Note: I personally saw and examined the patient along with GILDARDO Corley. I verified all mcgarry points and agree with GILDARDO Corley with the following exceptions and/or additions: I came to the bedside when patient had SVT. Plan outlined as above. Discussed the case extensively today with the machinery dismantler, automotive diagnostic technician, and cardiology. History reviewed Vitals reviewed Gen: Patient appears ill, was lethargic but would open eyes and answer some questions, was improved later after SVT resolved, NAD HEENT: Anicteric sclerae, EOMI CV: Tachycardic, regular while in SVT Pulm: No respiratory distress Abd: +BS soft NT ND no masses or hernias Ext: No edema, mottled appearance to lower extremities 78-year-old female with history as above, here with multisystem organ failure including new onset systolic CHF with severely reduced EF, RITA secondary to ATN, liver failure likely secondary to shock liver versus hepatic congestion Plan outlined as above Condition is critical at this time Prognosis is guarded Subjective Pt. was lethargic this morning -- she complained of being tired but denied chest pain, SOB, N/V, abd pain. Very low urine output overnight from flowers. HR was initially NSR on monitor -- she converted to SVT around 9:45, HR 170's. Discussed with cardiology and ICU -- she received Adenosine 6 mg followed by 12 mg IV with resolution of SVT. HR remained in the 90's-low 100s -- also received Metoprolol 2.5 mg IV x 2 doses. Administered Lasix 80 mg IV x 1 dose -- 50 cc output following diuretic dose. Will start Lasix drip and monitor for improvement in urine output. Family (including daughter and patient's ) updated at bedside from 1:15 to 1:45 this afternoon; Dr. Workman was also present for part of the conversation. Review of Systems Review of Systems: All systems reviewed & are unremarkable except as noted in HPI & below Constitutional: + fatigue and + weakness; no fever, no chills and no anorexia Respiratory: no cough, no dyspnea, no dyspnea on exertion and no wheezing Cardiovascular: no chest pain, no palpitations, no lightheadedness, no syncope and no edema Gastrointestinal: no abdominal pain, no nausea, no vomiting, no constipation and no diarrhea/loose stools Genitourinary: + difficulty urinating and + decreased urination; no dysuria and no hematuria Musculoskeletal: no back pain and no joint pain Integumentary: no non-healing lesions Physical Exam Physical Exam: General: Lethargic, family present at bedside HEENT: NC/AT; PERRLA with EOMI; [place] conjunctiva, MMM. No erythema of posterior pharynx Neck: Supple and nontender Cardiac: RRR, systolic murmur noted. Lungs: On 5L via NC; CTA throughout Abdomen: Bowel normoactive X 4; Nontender to palpation Extremities: Warm. No edema present Neuro: No focal weakness; is lethargic but answers all questions appropriately. Skin: Blue-purple discoloration of bilat LE. Pulses were palpable on exam. Results & Data Vital Signs (Past 12 Hours) Vital Signs Temp Pulse Pulse Pulse Resp BP BP 03/01/19 14:30 105 H 14 03/01/19 12:00 36.5 C 96 H 20 119/85 03/01/19 11:06 96 H 141/104 H 03/01/19 08:00 95 H 03/01/19 07:52 36.9 C 98 H 20 113/90 03/01/19 03:45 36.7 C 80 20 122/85 Pulse Ox 03/01/19 14:30 100 03/01/19 12:00 97 03/01/19 11:06 03/01/19 08:00 03/01/19 07:52 93 03/01/19 03:45 Laboratory Results 03/01/19 03/01/19 03/01/19 Range/Units 13:36 13:36 13:36 WBC (4.8-10.8) K/uL RBC (4.2-5.4) M/uL Hgb (12.0-16.0) g/dL POC Hgb (12.0-16.0) g/dl Hct (37-47) % POC Hct (37-47) % MCV (80-100) fL MCH (25-34) pg MCHC (32-36) g/dL RDW Std Deviation (36.4-46.3) fL RDW Coeff of Moi (11.5-14.5) % Plt Count (130-400) K/uL MPV (7.4-10.4) fL Immature Gran % (Auto) % Neut % (Auto) % Lymph % (Auto) % [place] % (Auto) % Eos % (Auto) % Baso % (Auto) % Immature Gran # (Auto) (0.00-0.02) K/uL Neut # (Auto) (1.4-6.5) K/uL Lymph # (Auto) (1.2-3.4) K/uL [place] # (Auto) (0.11-0.59) K/uL Eos # (Auto) (0-0.5) K/uL Baso # (Auto) (0-0.2) K/uL Absolute Nucleated RBC (0-0) K/uL Nucleated RBC % (auto) % PT (9.0-12.0) Seconds INR (0.9-1.1) APTT (21.0-31.0) Seconds PTT Ratio VBG pH (7.36-7.41) VBG pCO2 (38-50) mmHg VBG pO2 mmHg VBG HCO3 mmol/L VBG O2 Saturation % VBG Base Excess mEq/L Barometric Pressure mm/Hg POC Sodium (135-144) mEq/L Sodium (136-145) mmol/L POC Potassium (3.3-5.0) mEq/L Potassium (3.5-5.1) mmol/L POC Chloride (101-112) mEq/L Chloride (98-107) mmol/L Carbon Dioxide (21-32) mmol/L POC Total CO2 (24-31) mEq/l Anion Gap (3-11) POC Anion Gap (16-25) mmol/L POC BUN (7-18) mg/dl BUN (7-18) mg/dl Creatinine (0.6-1.2) mg/dl POC Creatinine (0.6-1.3) mg/dl Est Cr Clr Drug Dosing Est GFR ( Amer) Est GFR (Non-Af Amer) BUN/Creatinine Ratio (10-20) Glucose (70-99) mg/dl POC Glucose (70-99) POC Glucose (other) (70-99) mg/dl POC Lactic Acid [place] (0.90-1.70) mmol/L Lactate (0.4-2.0) mmol/L Calcium (8.5-10.1) mg/dl POC Ioniz Calcium [place] (1.12-1.32) mmol/l Magnesium (1.8-2.4) mg/dl Total Bilirubin (0.2-1) mg/dl Direct Bilirubin (0-0.2) mg/dl AST (15-37) U/L ALT (12-78) U/L Alkaline Phosphatase (45-117) U/L POC Troponin I (0-0.045) ng/ml Troponin I (0-0.045) ng/ml Total Protein (6.4-8.2) gm/dl Albumin (3.4-5.0) gm/dl Globulin (2.5-4.0) gm/dl Albumin/Globulin Ratio (0.9-2) Lipase (73-393) U/L TSH (0.300-4.500) uIu/ml Urine Color Urine Appearance (Clear) Urine pH (4.5-7.5) Ur Specific [place] (1.000-1.030) Urine Protein (Negative) Urine Glucose (UA) (Negative) Urine Ketones (Negative) Urine Blood (Negative) Urine Nitrite (Negative) Urine Bilirubin (Negative) Urine Urobilinogen (Negative) Ur Leukocyte Esterase (Negative) Urine WBC (Auto) (0-5) /hpf Urine RBC (Auto) (0-4) /hpf U Hyaline Cast (Auto) (0-5) /lpf U Epithel Cells (Auto) (0-5) /lpf Urine Bacteria (Auto) (Negative) Granular Casts (0) /lpf Urine Yeast Lyme Disease IgG Ab (Negative) Lyme Disease IgM Ab (Negative) CMV IgM Ab EBV Capsid Ag IgG Ab Pending EBV Capsid Ag IgM Ab Pending EBV EA Restrict+Diffuse Pending EBV Nuclear Antigen Ab Pending Hepatitis A IgM Ab Pending Hep Bs Antigen Neg (Neg) Hep B Core IgM Ab Pending Hepatitis C Antibody Neg (Neg) HSV I IgM Ab (IFA) HSV II IgM Ab (IFA) Parvovirus IgG Ab Index Parvovirus IgM Ab Index 03/01/19 03/01/19 03/01/19 Range/Units 13:36 12:47 12:47 WBC (4.8-10.8) K/uL RBC (4.2-5.4) M/uL Hgb (12.0-16.0) g/dL POC Hgb (12.0-16.0) g/dl Hct (37-47) % POC Hct (37-47) % MCV (80-100) fL MCH (25-34) pg MCHC (32-36) g/dL RDW Std Deviation (36.4-46.3) fL RDW Coeff of Moi (11.5-14.5) % Plt Count (130-400) K/uL MPV (7.4-10.4) fL Immature Gran % (Auto) % Neut % (Auto) % Lymph % (Auto) % [place] % (Auto) % Eos % (Auto) % Baso % (Auto) % Immature Gran # (Auto) (0.00-0.02) K/uL Neut # (Auto) (1.4-6.5) K/uL Lymph # (Auto) (1.2-3.4) K/uL [place] # (Auto) (0.11-0.59) K/uL Eos # (Auto) (0-0.5) K/uL Baso # (Auto) (0-0.2) K/uL Absolute Nucleated RBC (0-0) K/uL Nucleated RBC % (auto) % PT (9.0-12.0) Seconds INR (0.9-1.1) APTT (21.0-31.0) Seconds PTT Ratio VBG pH (7.36-7.41) VBG pCO2 (38-50) mmHg VBG pO2 mmHg VBG HCO3 mmol/L VBG O2 Saturation % VBG Base Excess mEq/L Barometric Pressure mm/Hg POC Sodium (135-144) mEq/L Sodium (136-145) mmol/L POC Potassium (3.3-5.0) mEq/L Potassium (3.5-5.1) mmol/L POC Chloride (101-112) mEq/L Chloride (98-107) mmol/L Carbon Dioxide (21-32) mmol/L POC Total CO2 (24-31) mEq/l Anion Gap (3-11) POC Anion Gap (16-25) mmol/L POC BUN (7-18) mg/dl BUN (7-18) mg/dl Creatinine (0.6-1.2) mg/dl POC Creatinine (0.6-1.3) mg/dl Est Cr Clr Drug Dosing Est GFR ( Amer) Est GFR (Non-Af Amer) BUN/Creatinine Ratio (10-20) Glucose (70-99) mg/dl POC Glucose (70-99) POC Glucose (other) (70-99) mg/dl POC Lactic Acid [place] (0.90-1.70) mmol/L Lactate 3.1 H* (0.4-2.0) mmol/L Calcium (8.5-10.1) mg/dl POC Ioniz Calcium [place] (1.12-1.32) mmol/l Magnesium (1.8-2.4) mg/dl Total Bilirubin (0.2-1) mg/dl Direct Bilirubin (0-0.2) mg/dl AST (15-37) U/L ALT (12-78) U/L Alkaline Phosphatase (45-117) U/L POC Troponin I (0-0.045) ng/ml Troponin I (0-0.045) ng/ml Total Protein (6.4-8.2) gm/dl Albumin (3.4-5.0) gm/dl Globulin (2.5-4.0) gm/dl Albumin/Globulin Ratio (0.9-2) Lipase (73-393) U/L TSH (0.300-4.500) uIu/ml Urine Color Urine Appearance (Clear) Urine pH (4.5-7.5) Ur Specific [place] (1.000-1.030) Urine Protein (Negative) Urine Glucose (UA) (Negative) Urine Ketones (Negative) Urine Blood (Negative) Urine Nitrite (Negative) Urine Bilirubin (Negative) Urine Urobilinogen (Negative) Ur Leukocyte Esterase (Negative) Urine WBC (Auto) (0-5) /hpf Urine RBC (Auto) (0-4) /hpf U Hyaline Cast (Auto) (0-5) /lpf U Epithel Cells (Auto) (0-5) /lpf Urine Bacteria (Auto) (Negative) Granular Casts (0) /lpf Urine Yeast Lyme Disease IgG Ab Negative (Negative) Lyme Disease IgM Ab Negative (Negative) CMV IgM Ab Pending EBV Capsid Ag IgG Ab EBV Capsid Ag IgM Ab EBV EA Restrict+Diffuse EBV Nuclear Antigen Ab Hepatitis A IgM Ab Hep Bs Antigen (Neg) Hep B Core IgM Ab Hepatitis C Antibody (Neg) HSV I IgM Ab (IFA) Pending HSV II IgM Ab (IFA) Pending Parvovirus IgG Ab Index Pending Parvovirus IgM Ab Index Pending 03/01/19 03/01/19 03/01/19 Range/Units 12:47 12:47 10:53 WBC (4.8-10.8) K/uL RBC (4.2-5.4) M/uL Hgb (12.0-16.0) g/dL POC Hgb (12.0-16.0) g/dl Hct (37-47) % POC Hct (37-47) % MCV (80-100) fL MCH (25-34) pg MCHC (32-36) g/dL RDW Std Deviation (36.4-46.3) fL RDW Coeff of Moi (11.5-14.5) % Plt Count (130-400) K/uL MPV (7.4-10.4) fL Immature Gran % (Auto) % Neut % (Auto) % Lymph % (Auto) % [place] % (Auto) % Eos % (Auto) % Baso % (Auto) % Immature Gran # (Auto) (0.00-0.02) K/uL Neut # (Auto) (1.4-6.5) K/uL Lymph # (Auto) (1.2-3.4) K/uL [place] # (Auto) (0.11-0.59) K/uL Eos # (Auto) (0-0.5) K/uL Baso # (Auto) (0-0.2) K/uL Absolute Nucleated RBC (0-0) K/uL Nucleated RBC % (auto) % PT 27.2 H (9.0-12.0) Seconds INR 2.9 H (0.9-1.1) APTT (21.0-31.0) Seconds PTT Ratio VBG pH (7.36-7.41) VBG pCO2 (38-50) mmHg VBG pO2 mmHg VBG HCO3 mmol/L VBG O2 Saturation % VBG Base Excess mEq/L Barometric Pressure mm/Hg POC Sodium (135-144) mEq/L Sodium 132 L (136-145) mmol/L POC Potassium (3.3-5.0) mEq/L Potassium 5.6 H (3.5-5.1) mmol/L POC Chloride (101-112) mEq/L Chloride 99 (98-107) mmol/L Carbon Dioxide 17 L (21-32) mmol/L POC Total CO2 (24-31) mEq/l Anion Gap 15.0 H (3-11) POC Anion Gap (16-25) mmol/L POC BUN (7-18) mg/dl BUN 76 H (7-18) mg/dl Creatinine 3.12 H (0.6-1.2) mg/dl POC Creatinine (0.6-1.3) mg/dl Est Cr Clr Drug Dosing 12.8 Est GFR ( Amer) 16.0 Est GFR (Non-Af Amer) 13.8 BUN/Creatinine Ratio 24.4 H (10-20) Glucose 132 H (70-99) mg/dl POC Glucose 160 H (70-99) POC Glucose (other) (70-99) mg/dl POC Lactic Acid [place] (0.90-1.70) mmol/L Lactate (0.4-2.0) mmol/L Calcium 7.5 L (8.5-10.1) mg/dl POC Ioniz Calcium [place] (1.12-1.32) mmol/l Magnesium (1.8-2.4) mg/dl Total Bilirubin 2.0 H (0.2-1) mg/dl Direct Bilirubin (0-0.2) mg/dl AST 2352 H (15-37) U/L ALT 2700 H (12-78) U/L Alkaline Phosphatase 124 H (45-117) U/L POC Troponin I (0-0.045) ng/ml Troponin I 0.642 H* (0-0.045) ng/ml Total Protein 6.1 L (6.4-8.2) gm/dl Albumin 3.0 L (3.4-5.0) gm/dl Globulin 3.1 (2.5-4.0) gm/dl Albumin/Globulin Ratio 1.0 (0.9-2) Lipase (73-393) U/L TSH (0.300-4.500) uIu/ml Urine Color Urine Appearance (Clear) Urine pH (4.5-7.5) Ur Specific [place] (1.000-1.030) Urine Protein (Negative) Urine Glucose (UA) (Negative) Urine Ketones (Negative) Urine Blood (Negative) Urine Nitrite (Negative) Urine Bilirubin (Negative) Urine Urobilinogen (Negative) Ur Leukocyte Esterase (Negative) Urine WBC (Auto) (0-5) /hpf Urine RBC (Auto) (0-4) /hpf U Hyaline Cast (Auto) (0-5) /lpf U Epithel Cells (Auto) (0-5) /lpf Urine Bacteria (Auto) (Negative) Granular Casts (0) /lpf Urine Yeast Lyme Disease IgG Ab (Negative) Lyme Disease IgM Ab (Negative) CMV IgM Ab EBV Capsid Ag IgG Ab EBV Capsid Ag IgM Ab EBV EA Restrict+Diffuse EBV Nuclear Antigen Ab Hepatitis A IgM Ab Hep Bs Antigen (Neg) Hep B Core IgM Ab Hepatitis C Antibody (Neg) HSV I IgM Ab (IFA) HSV II IgM Ab (IFA) Parvovirus IgG Ab Index Parvovirus IgM Ab Index 03/01/19 03/01/19 03/01/19 Range/Units 08:42 08:15 07:50 WBC (4.8-10.8) K/uL RBC (4.2-5.4) M/uL Hgb (12.0-16.0) g/dL POC Hgb (12.0-16.0) g/dl Hct (37-47) % POC Hct (37-47) % MCV (80-100) fL MCH (25-34) pg MCHC (32-36) g/dL RDW Std Deviation (36.4-46.3) fL RDW Coeff of Moi (11.5-14.5) % Plt Count (130-400) K/uL MPV (7.4-10.4) fL Immature Gran % (Auto) % Neut % (Auto) % Lymph % (Auto) % [place] % (Auto) % Eos % (Auto) % Baso % (Auto) % Immature Gran # (Auto) (0.00-0.02) K/uL Neut # (Auto) (1.4-6.5) K/uL Lymph # (Auto) (1.2-3.4) K/uL [place] # (Auto) (0.11-0.59) K/uL Eos # (Auto) (0-0.5) K/uL Baso # (Auto) (0-0.2) K/uL Absolute Nucleated RBC (0-0) K/uL Nucleated RBC % (auto) % PT (9.0-12.0) Seconds INR (0.9-1.1) APTT (21.0-31.0) Seconds PTT Ratio VBG pH (7.36-7.41) VBG pCO2 (38-50) mmHg VBG pO2 mmHg VBG HCO3 mmol/L VBG O2 Saturation % VBG Base Excess mEq/L Barometric Pressure mm/Hg POC Sodium (135-144) mEq/L Sodium (136-145) mmol/L POC Potassium (3.3-5.0) mEq/L Potassium (3.5-5.1) mmol/L POC Chloride (101-112) mEq/L Chloride (98-107) mmol/L Carbon Dioxide (21-32) mmol/L POC Total CO2 (24-31) mEq/l Anion Gap (3-11) POC Anion Gap (16-25) mmol/L POC BUN (7-18) mg/dl BUN (7-18) mg/dl Creatinine (0.6-1.2) mg/dl POC Creatinine (0.6-1.3) mg/dl Est Cr Clr Drug Dosing Est GFR ( Amer) Est GFR (Non-Af Amer) BUN/Creatinine Ratio (10-20) Glucose (70-99) mg/dl POC Glucose 181 H 59 L* 63 L* (70-99) POC Glucose (other) (70-99) mg/dl POC Lactic Acid [place] (0.90-1.70) mmol/L Lactate (0.4-2.0) mmol/L Calcium (8.5-10.1) mg/dl POC Ioniz Calcium [place] (1.12-1.32) mmol/l Magnesium (1.8-2.4) mg/dl Total Bilirubin (0.2-1) mg/dl Direct Bilirubin (0-0.2) mg/dl AST (15-37) U/L ALT (12-78) U/L Alkaline Phosphatase (45-117) U/L POC Troponin I (0-0.045) ng/ml Troponin I (0-0.045) ng/ml Total Protein (6.4-8.2) gm/dl Albumin (3.4-5.0) gm/dl Globulin (2.5-4.0) gm/dl Albumin/Globulin Ratio (0.9-2) Lipase (73-393) U/L TSH (0.300-4.500) uIu/ml Urine Color Urine Appearance (Clear) Urine pH (4.5-7.5) Ur Specific [place] (1.000-1.030) Urine Protein (Negative) Urine Glucose (UA) (Negative) Urine Ketones (Negative) Urine Blood (Negative) Urine Nitrite (Negative) Urine Bilirubin (Negative) Urine Urobilinogen (Negative) Ur Leukocyte Esterase (Negative) Urine WBC (Auto) (0-5) /hpf Urine RBC (Auto) (0-4) /hpf U Hyaline Cast (Auto) (0-5) /lpf U Epithel Cells (Auto) (0-5) /lpf Urine Bacteria (Auto) (Negative) Granular Casts (0) /lpf Urine Yeast Lyme Disease IgG Ab (Negative) Lyme Disease IgM Ab (Negative) CMV IgM Ab EBV Capsid Ag IgG Ab EBV Capsid Ag IgM Ab EBV EA Restrict+Diffuse EBV Nuclear Antigen Ab Hepatitis A IgM Ab Hep Bs Antigen (Neg) Hep B Core IgM Ab Hepatitis C Antibody (Neg) HSV I IgM Ab (IFA) HSV II IgM Ab (IFA) Parvovirus IgG Ab Index Parvovirus IgM Ab Index 03/01/19 03/01/19 03/01/19 Range/Units 07:49 07:16 02:56 WBC 7.98 (4.8-10.8) K/uL RBC 4.45 (4.2-5.4) M/uL Hgb 13.4 (12.0-16.0) g/dL POC Hgb (12.0-16.0) g/dl Hct 38.6 (37-47) % POC Hct (37-47) % MCV 86.7 (80-100) fL MCH 30.1 (25-34) pg MCHC 34.7 (32-36) g/dL RDW Std Deviation 48.9 H (36.4-46.3) fL RDW Coeff of Moi 15.7 H (11.5-14.5) % Plt Count 142 (130-400) K/uL MPV 10.2 (7.4-10.4) fL Immature Gran % (Auto) 0.4 % Neut % (Auto) 81.4 % Lymph % (Auto) 9.5 % [place] % (Auto) 8.5 % Eos % (Auto) 0.1 % Baso % (Auto) 0.1 % Immature Gran # (Auto) 0.03 H (0.00-0.02) K/uL Neut # (Auto) 6.49 (1.4-6.5) K/uL Lymph # (Auto) 0.76 L (1.2-3.4) K/uL [place] # (Auto) 0.68 H (0.11-0.59) K/uL Eos # (Auto) 0.01 (0-0.5) K/uL Baso # (Auto) 0.01 (0-0.2) K/uL Absolute Nucleated RBC 0.13 H (0-0) K/uL Nucleated RBC % (auto) 1.6 % PT (9.0-12.0) Seconds INR (0.9-1.1) APTT (21.0-31.0) Seconds PTT Ratio VBG pH (7.36-7.41) VBG pCO2 (38-50) mmHg VBG pO2 mmHg VBG HCO3 mmol/L VBG O2 Saturation % VBG Base Excess mEq/L Barometric Pressure mm/Hg POC Sodium (135-144) mEq/L Sodium 132 L (136-145) mmol/L POC Potassium (3.3-5.0) mEq/L Potassium 5.6 H (3.5-5.1) mmol/L POC Chloride (101-112) mEq/L Chloride 98 (98-107) mmol/L Carbon Dioxide 18 L (21-32) mmol/L POC Total CO2 (24-31) mEq/l Anion Gap 16.0 H (3-11) POC Anion Gap (16-25) mmol/L POC BUN (7-18) mg/dl BUN 73 H (7-18) mg/dl Creatinine 3.06 H (0.6-1.2) mg/dl POC Creatinine (0.6-1.3) mg/dl Est Cr Clr Drug Dosing 13.1 Est GFR ( Amer) 16.4 Est GFR (Non-Af Amer) 14.1 BUN/Creatinine Ratio 23.7 H (10-20) Glucose 62 L (70-99) mg/dl POC Glucose 59 L* (70-99) POC Glucose (other) (70-99) mg/dl POC Lactic Acid [place] (0.90-1.70) mmol/L Lactate (0.4-2.0) mmol/L Calcium 7.7 L (8.5-10.1) mg/dl POC Ioniz Calcium [place] (1.12-1.32) mmol/l Magnesium (1.8-2.4) mg/dl Total Bilirubin (0.2-1) mg/dl Direct Bilirubin (0-0.2) mg/dl AST (15-37) U/L ALT (12-78) U/L Alkaline Phosphatase (45-117) U/L POC Troponin I (0-0.045) ng/ml Troponin I (0-0.045) ng/ml Total Protein (6.4-8.2) gm/dl Albumin (3.4-5.0) gm/dl Globulin (2.5-4.0) gm/dl Albumin/Globulin Ratio (0.9-2) Lipase (73-393) U/L TSH (0.300-4.500) uIu/ml Urine Color Urine Appearance (Clear) Urine pH (4.5-7.5) Ur Specific [place] (1.000-1.030) Urine Protein (Negative) Urine Glucose (UA) (Negative) Urine Ketones (Negative) Urine Blood (Negative) Urine Nitrite (Negative) Urine Bilirubin (Negative) Urine Urobilinogen (Negative) Ur Leukocyte Esterase (Negative) Urine WBC (Auto) (0-5) /hpf Urine RBC (Auto) (0-4) /hpf U Hyaline Cast (Auto) (0-5) /lpf U Epithel Cells (Auto) (0-5) /lpf Urine Bacteria (Auto) (Negative) Granular Casts (0) /lpf Urine Yeast Lyme Disease IgG Ab (Negative) Lyme Disease IgM Ab (Negative) CMV IgM Ab EBV Capsid Ag IgG Ab EBV Capsid Ag IgM Ab EBV EA Restrict+Diffuse EBV Nuclear Antigen Ab Hepatitis A IgM Ab Hep Bs Antigen (Neg) Hep B Core IgM Ab Hepatitis C Antibody (Neg) HSV I IgM Ab (IFA) HSV II IgM Ab (IFA) Parvovirus IgG Ab Index Parvovirus IgM Ab Index 03/01/19 02/28/19 02/28/19 Range/Units 02:56 22:52 16:39 WBC (4.8-10.8) K/uL RBC (4.2-5.4) M/uL Hgb (12.0-16.0) g/dL POC Hgb (12.0-16.0) g/dl Hct (37-47) % POC Hct (37-47) % MCV (80-100) fL MCH (25-34) pg MCHC (32-36) g/dL RDW Std Deviation (36.4-46.3) fL RDW Coeff of Moi (11.5-14.5) % Plt Count (130-400) K/uL MPV (7.4-10.4) fL Immature Gran % (Auto) % Neut % (Auto) % Lymph % (Auto) % [place] % (Auto) % Eos % (Auto) % Baso % (Auto) % Immature Gran # (Auto) (0.00-0.02) K/uL Neut # (Auto) (1.4-6.5) K/uL Lymph # (Auto) (1.2-3.4) K/uL [place] # (Auto) (0.11-0.59) K/uL Eos # (Auto) (0-0.5) K/uL Baso # (Auto) (0-0.2) K/uL Absolute Nucleated RBC (0-0) K/uL Nucleated RBC % (auto) % PT (9.0-12.0) Seconds INR (0.9-1.1) APTT (21.0-31.0) Seconds PTT Ratio VBG pH (7.36-7.41) VBG pCO2 (38-50) mmHg VBG pO2 mmHg VBG HCO3 mmol/L VBG O2 Saturation % VBG Base Excess mEq/L Barometric Pressure mm/Hg POC Sodium (135-144) mEq/L Sodium 130 L 131 L (136-145) mmol/L POC Potassium (3.3-5.0) mEq/L Potassium 5.7 H 5.9 H (3.5-5.1) mmol/L POC Chloride (101-112) mEq/L Chloride 95 L 95 L (98-107) mmol/L Carbon Dioxide 19 L 21 (21-32) mmol/L POC Total CO2 (24-31) mEq/l Anion Gap 16.0 H 15.0 H (3-11) POC Anion Gap (16-25) mmol/L POC BUN (7-18) mg/dl BUN 70 H 69 H (7-18) mg/dl Creatinine 2.98 H 2.99 H (0.6-1.2) mg/dl POC Creatinine (0.6-1.3) mg/dl Est Cr Clr Drug Dosing 13.3 13.2 Est GFR ( Amer) 16.9 16.9 Est GFR (Non-Af Amer) 14.6 14.5 BUN/Creatinine Ratio 23.6 H 23.1 H (10-20) Glucose 78 76 (70-99) mg/dl POC Glucose (70-99) POC Glucose (other) (70-99) mg/dl POC Lactic Acid [place] (0.90-1.70) mmol/L Lactate (0.4-2.0) mmol/L Calcium 7.4 L 7.8 L (8.5-10.1) mg/dl POC Ioniz Calcium [place] (1.12-1.32) mmol/l Magnesium 1.9 (1.8-2.4) mg/dl Total Bilirubin 1.7 H (0.2-1) mg/dl Direct Bilirubin 1.1 H (0-0.2) mg/dl AST 2639 H (15-37) U/L ALT 2717 H (12-78) U/L Alkaline Phosphatase 123 H (45-117) U/L POC Troponin I (0-0.045) ng/ml Troponin I 0.850 H* 0.726 H* (0-0.045) ng/ml Total Protein 6.1 L (6.4-8.2) gm/dl Albumin 3.0 L (3.4-5.0) gm/dl Globulin (2.5-4.0) gm/dl Albumin/Globulin Ratio (0.9-2) Lipase (73-393) U/L TSH 1.390 (0.300-4.500) uIu/ml Urine Color Dark Yellow Urine Appearance Turbid A (Clear) Urine pH 5.0 (4.5-7.5) Ur Specific [place] 1.024 (1.000-1.030) Urine Protein 2+ H (Negative) Urine Glucose (UA) Negative (Negative) Urine Ketones Trace H (Negative) Urine Blood 1+ H (Negative) Urine Nitrite Positive A (Negative) Urine Bilirubin 2+ H (Negative) Urine Urobilinogen Negative (Negative) Ur Leukocyte Esterase 3+ H (Negative) Urine WBC (Auto) >30 H (0-5) /hpf Urine RBC (Auto) 0-4 (0-4) /hpf U Hyaline Cast (Auto) 1-5 (0-5) /lpf U Epithel Cells (Auto) >30 H (0-5) /lpf Urine Bacteria (Auto) Negative (Negative) Granular Casts 1-5 H (0) /lpf Urine Yeast Not Reportable Lyme Disease IgG Ab (Negative) Lyme Disease IgM Ab (Negative) CMV IgM Ab EBV Capsid Ag IgG Ab EBV Capsid Ag IgM Ab EBV EA Restrict+Diffuse EBV Nuclear Antigen Ab Hepatitis A IgM Ab Hep Bs Antigen (Neg) Hep B Core IgM Ab Hepatitis C Antibody (Neg) HSV I IgM Ab (IFA) HSV II IgM Ab (IFA) Parvovirus IgG Ab Index Parvovirus IgM Ab Index 02/28/19 02/28/19 02/28/19 Range/Units 16:35 16:31 16:28 WBC (4.8-10.8) K/uL RBC (4.2-5.4) M/uL Hgb (12.0-16.0) g/dL POC Hgb 15.0 (12.0-16.0) g/dl Hct (37-47) % POC Hct 44 (37-47) % MCV (80-100) fL MCH (25-34) pg MCHC (32-36) g/dL RDW Std Deviation (36.4-46.3) fL RDW Coeff of Moi (11.5-14.5) % Plt Count (130-400) K/uL MPV (7.4-10.4) fL Immature Gran % (Auto) % Neut % (Auto) % Lymph % (Auto) % [place] % (Auto) % Eos % (Auto) % Baso % (Auto) % Immature Gran # (Auto) (0.00-0.02) K/uL Neut # (Auto) (1.4-6.5) K/uL Lymph # (Auto) (1.2-3.4) K/uL [place] # (Auto) (0.11-0.59) K/uL Eos # (Auto) (0-0.5) K/uL Baso # (Auto) (0-0.2) K/uL Absolute Nucleated RBC (0-0) K/uL Nucleated RBC % (auto) % PT (9.0-12.0) Seconds INR (0.9-1.1) APTT (21.0-31.0) Seconds PTT Ratio VBG pH (7.36-7.41) VBG pCO2 (38-50) mmHg VBG pO2 mmHg VBG HCO3 mmol/L VBG O2 Saturation % VBG Base Excess mEq/L Barometric Pressure mm/Hg POC Sodium 128 L (135-144) mEq/L Sodium (136-145) mmol/L POC Potassium 6.2 H* (3.3-5.0) mEq/L Potassium (3.5-5.1) mmol/L POC Chloride 96 L (101-112) mEq/L Chloride (98-107) mmol/L Carbon Dioxide (21-32) mmol/L POC Total CO2 21 L (24-31) mEq/l Anion Gap (3-11) POC Anion Gap 17.0 (16-25) mmol/L POC BUN 61 H (7-18) mg/dl BUN (7-18) mg/dl Creatinine (0.6-1.2) mg/dl POC Creatinine 3.0 H (0.6-1.3) mg/dl Est Cr Clr Drug Dosing Est GFR ( Amer) Est GFR (Non-Af Amer) BUN/Creatinine Ratio (10-20) Glucose (70-99) mg/dl POC Glucose (70-99) POC Glucose (other) 83 (70-99) mg/dl POC Lactic Acid [place] 2.76 H (0.90-1.70) mmol/L Lactate (0.4-2.0) mmol/L Calcium (8.5-10.1) mg/dl POC Ioniz Calcium [place] 0.90 L (1.12-1.32) mmol/l Magnesium (1.8-2.4) mg/dl Total Bilirubin (0.2-1) mg/dl Direct Bilirubin (0-0.2) mg/dl AST (15-37) U/L ALT (12-78) U/L Alkaline Phosphatase (45-117) U/L POC Troponin I 0.49 H (0-0.045) ng/ml Troponin I (0-0.045) ng/ml Total Protein (6.4-8.2) gm/dl Albumin (3.4-5.0) gm/dl Globulin (2.5-4.0) gm/dl Albumin/Globulin Ratio (0.9-2) Lipase (73-393) U/L TSH (0.300-4.500) uIu/ml Urine Color Urine Appearance (Clear) Urine pH (4.5-7.5) Ur Specific [place] (1.000-1.030) Urine Protein (Negative) Urine Glucose (UA) (Negative) Urine Ketones (Negative) Urine Blood (Negative) Urine Nitrite (Negative) Urine Bilirubin (Negative) Urine Urobilinogen (Negative) Ur Leukocyte Esterase (Negative) Urine WBC (Auto) (0-5) /hpf Urine RBC (Auto) (0-4) /hpf U Hyaline Cast (Auto) (0-5) /lpf U Epithel Cells (Auto) (0-5) /lpf Urine Bacteria (Auto) (Negative) Granular Casts (0) /lpf Urine Yeast Lyme Disease IgG Ab (Negative) Lyme Disease IgM Ab (Negative) CMV IgM Ab EBV Capsid Ag IgG Ab EBV Capsid Ag IgM Ab EBV EA Restrict+Diffuse EBV Nuclear Antigen Ab Hepatitis A IgM Ab Hep Bs Antigen (Neg) Hep B Core IgM Ab Hepatitis C Antibody (Neg) HSV I IgM Ab (IFA) HSV II IgM Ab (IFA) Parvovirus IgG Ab Index Parvovirus IgM Ab Index 02/28/19 02/28/19 02/28/19 Range/Units 16:27 16:26 16:26 WBC (4.8-10.8) K/uL RBC (4.2-5.4) M/uL Hgb (12.0-16.0) g/dL POC Hgb (12.0-16.0) g/dl Hct (37-47) % POC Hct (37-47) % MCV (80-100) fL MCH (25-34) pg MCHC (32-36) g/dL RDW Std Deviation (36.4-46.3) fL RDW Coeff of Moi (11.5-14.5) % Plt Count (130-400) K/uL MPV (7.4-10.4) fL Immature Gran % (Auto) % Neut % (Auto) % Lymph % (Auto) % [place] % (Auto) % Eos % (Auto) % Baso % (Auto) % Immature Gran # (Auto) (0.00-0.02) K/uL Neut # (Auto) (1.4-6.5) K/uL Lymph # (Auto) (1.2-3.4) K/uL [place] # (Auto) (0.11-0.59) K/uL Eos # (Auto) (0-0.5) K/uL Baso # (Auto) (0-0.2) K/uL Absolute Nucleated RBC (0-0) K/uL Nucleated RBC % (auto) % PT 21.2 H (9.0-12.0) Seconds INR 2.2 H (0.9-1.1) APTT 35.3 H (21.0-31.0) Seconds PTT Ratio 1.3 VBG pH 7.30 L (7.36-7.41) VBG pCO2 39 (38-50) mmHg VBG pO2 39 mmHg VBG HCO3 19 mmol/L VBG O2 Saturation 65.5 % VBG Base Excess -7.0 mEq/L Barometric Pressure 731.3 mm/Hg POC Sodium (135-144) mEq/L Sodium 132 L (136-145) mmol/L POC Potassium (3.3-5.0) mEq/L Potassium 6.1 H* (3.5-5.1) mmol/L POC Chloride (101-112) mEq/L Chloride 95 L (98-107) mmol/L Carbon Dioxide 19 L (21-32) mmol/L POC Total CO2 (24-31) mEq/l Anion Gap 16.0 H (3-11) POC Anion Gap (16-25) mmol/L POC BUN (7-18) mg/dl BUN 64 H (7-18) mg/dl Creatinine 2.75 H (0.6-1.2) mg/dl POC Creatinine (0.6-1.3) mg/dl Est Cr Clr Drug Dosing Not Reportable Est GFR ( Amer) 18.7 Est GFR (Non-Af Amer) 16.1 BUN/Creatinine Ratio 23.4 H (10-20) Glucose 78 (70-99) mg/dl POC Glucose (70-99) POC Glucose (other) (70-99) mg/dl POC Lactic Acid [place] (0.90-1.70) mmol/L Lactate (0.4-2.0) mmol/L Calcium 8.2 L (8.5-10.1) mg/dl POC Ioniz Calcium [place] (1.12-1.32) mmol/l Magnesium (1.8-2.4) mg/dl Total Bilirubin 1.8 H (0.2-1) mg/dl Direct Bilirubin 1.3 H (0-0.2) mg/dl AST 3231 H (15-37) U/L ALT 2943 H (12-78) U/L Alkaline Phosphatase 129 H (45-117) U/L POC Troponin I (0-0.045) ng/ml Troponin I 0.617 H* (0-0.045) ng/ml Total Protein 6.5 (6.4-8.2) gm/dl Albumin 3.2 L (3.4-5.0) gm/dl Globulin (2.5-4.0) gm/dl Albumin/Globulin Ratio (0.9-2) Lipase 853 H (73-393) U/L TSH (0.300-4.500) uIu/ml Urine Color Urine Appearance (Clear) Urine pH (4.5-7.5) Ur Specific [place] (1.000-1.030) Urine Protein (Negative) Urine Glucose (UA) (Negative) Urine Ketones (Negative) Urine Blood (Negative) Urine Nitrite (Negative) Urine Bilirubin (Negative) Urine Urobilinogen (Negative) Ur Leukocyte Esterase (Negative) Urine WBC (Auto) (0-5) /hpf Urine RBC (Auto) (0-4) /hpf U Hyaline Cast (Auto) (0-5) /lpf U Epithel Cells (Auto) (0-5) /lpf Urine Bacteria (Auto) (Negative) Granular Casts (0) /lpf Urine Yeast Lyme Disease IgG Ab (Negative) Lyme Disease IgM Ab (Negative) CMV IgM Ab EBV Capsid Ag IgG Ab EBV Capsid Ag IgM Ab EBV EA Restrict+Diffuse EBV Nuclear Antigen Ab Hepatitis A IgM Ab Hep Bs Antigen (Neg) Hep B Core IgM Ab Hepatitis C Antibody (Neg) HSV I IgM Ab (IFA) HSV II IgM Ab (IFA) Parvovirus IgG Ab Index Parvovirus IgM Ab Index 02/28/19 02/28/19 Range/Units 16:26 15:53 WBC 7.98 (4.8-10.8) K/uL RBC 4.45 (4.2-5.4) M/uL Hgb 13.3 (12.0-16.0) g/dL POC Hgb (12.0-16.0) g/dl Hct 38.4 (37-47) % POC Hct (37-47) % MCV 86.3 (80-100) fL MCH 29.9 (25-34) pg MCHC 34.6 (32-36) g/dL RDW Std Deviation 49.0 H (36.4-46.3) fL RDW Coeff of Moi 15.8 H (11.5-14.5) % Plt Count 176 (130-400) K/uL MPV 11.2 H (7.4-10.4) fL Immature Gran % (Auto) 0.3 % Neut % (Auto) 88.7 % Lymph % (Auto) 4.8 % [place] % (Auto) 6.1 % Eos % (Auto) 0.1 % Baso % (Auto) 0.0 % Immature Gran # (Auto) 0.02 (0.00-0.02) K/uL Neut # (Auto) 7.08 H (1.4-6.5) K/uL Lymph # (Auto) 0.38 L (1.2-3.4) K/uL [place] # (Auto) 0.49 (0.11-0.59) K/uL Eos # (Auto) 0.01 (0-0.5) K/uL Baso # (Auto) 0.00 (0-0.2) K/uL Absolute Nucleated RBC 0.09 H (0-0) K/uL Nucleated RBC % (auto) 1.2 % PT (9.0-12.0) Seconds INR (0.9-1.1) APTT (21.0-31.0) Seconds PTT Ratio VBG pH (7.36-7.41) VBG pCO2 (38-50) mmHg VBG pO2 mmHg VBG HCO3 mmol/L VBG O2 Saturation % VBG Base Excess mEq/L Barometric Pressure mm/Hg POC Sodium (135-144) mEq/L Sodium (136-145) mmol/L POC Potassium (3.3-5.0) mEq/L Potassium (3.5-5.1) mmol/L POC Chloride (101-112) mEq/L Chloride (98-107) mmol/L Carbon Dioxide (21-32) mmol/L POC Total CO2 (24-31) mEq/l Anion Gap (3-11) POC Anion Gap (16-25) mmol/L POC BUN (7-18) mg/dl BUN (7-18) mg/dl Creatinine (0.6-1.2) mg/dl POC Creatinine (0.6-1.3) mg/dl Est Cr Clr Drug Dosing Est GFR ( Amer) Est GFR (Non-Af Amer) BUN/Creatinine Ratio (10-20) Glucose (70-99) mg/dl POC Glucose 92 (70-99) POC Glucose (other) (70-99) mg/dl POC Lactic Acid [place] (0.90-1.70) mmol/L Lactate (0.4-2.0) mmol/L Calcium (8.5-10.1) mg/dl POC Ioniz Calcium [place] (1.12-1.32) mmol/l Magnesium (1.8-2.4) mg/dl Total Bilirubin (0.2-1) mg/dl Direct Bilirubin (0-0.2) mg/dl AST (15-37) U/L ALT (12-78) U/L Alkaline Phosphatase (45-117) U/L POC Troponin I (0-0.045) ng/ml Troponin I (0-0.045) ng/ml Total Protein (6.4-8.2) gm/dl Albumin (3.4-5.0) gm/dl Globulin (2.5-4.0) gm/dl Albumin/Globulin Ratio (0.9-2) Lipase (73-393) U/L TSH (0.300-4.500) uIu/ml Urine Color Urine Appearance (Clear) Urine pH (4.5-7.5) Ur Specific [place] (1.000-1.030) Urine Protein (Negative) Urine Glucose (UA) (Negative) Urine Ketones (Negative) Urine Blood (Negative) Urine Nitrite (Negative) Urine Bilirubin (Negative) Urine Urobilinogen (Negative) Ur Leukocyte Esterase (Negative) Urine WBC (Auto) (0-5) /hpf Urine RBC (Auto) (0-4) /hpf U Hyaline Cast (Auto) (0-5) /lpf U Epithel Cells (Auto) (0-5) /lpf Urine Bacteria (Auto) (Negative) Granular Casts (0) /lpf Urine Yeast Lyme Disease IgG Ab (Negative) Lyme Disease IgM Ab (Negative) CMV IgM Ab EBV Capsid Ag IgG Ab EBV Capsid Ag IgM Ab EBV EA Restrict+Diffuse EBV Nuclear Antigen Ab Hepatitis A IgM Ab Hep Bs Antigen (Neg) Hep B Core IgM Ab Hepatitis C Antibody (Neg) HSV I IgM Ab (IFA) HSV II IgM Ab (IFA) Parvovirus IgG Ab Index Parvovirus IgM Ab Index PG Care Time/CCT Total # of Minutes Spent Total Time Spent with Patient: Total time spent is greater than 50% in coordination of care (as documented) at patient's floor/unit and/or counseling patient: Prolonged Care Time Prolonged Care Time: Yes Total Prolonged Care Time: 30 (1) Sepsis Sepsis type: sepsis due to unspecified organism Qualified Code(s): A41.9 - Sepsis, unspecified organism
--- NOTE | 2019-03-01 15:28 | Nephrology Consultation ---
Date of Consultation March 01, 2019 Assessment & Plan (1) Acute kidney injury: Oliguric. Complicated by acidosis and hyperkalemia. Clinically consistent with ATN. In the setting of multiple medical comorbidities hemodialysis certainly would be reasonably but there is some indecision regarding proceeding with dialysis at this time due to frailty and medical comorbidities. Latonya explained to me that Rebecca's brother was on hemodialysis and that Rebecca had expressed in the past that this is not something that she would personally want. At this time, plan is continue with diuretics to encourage urine output and kaluresis with close observation. I will continue a conversation regarding dialysis with the patient's family. I certainly cannot predict renal recovery. The patient's condition certainly appears to be acute. I agree with screening for tick borne illness including anaplasmosis. I would maintain a high degree of suspicion for infection. WBC remains elevated and lactate has been rising. This will be monitored. Document I/O's. Monitor metabolic profile at least q 12 hours. Minimize obligatory fluid intake. Furosemide gtt has been ordered to encourage urine output. Medications are currently acceptably dosed for kidney function. I will touch base with Latonya in the morning and based on changes in patient's condition we can continue our discussion regarding level of care. 60+ minutes was provided today which was necessary for counseling and coordination of care. (2) Acute systolic (congestive) heart failure: (3) Cardiomyopathy: (4) RLL pneumonia: (5) Hyperkalemia: (6) SVT (supraventricular tachycardia): (7) Elevated LFTs: (8) Elevated lactic acid level: (9) UTI (urinary tract infection): (10) Polymyalgia rheumatica: (11) Diabetes mellitus type 2 with complications: (12) Left bundle branch block: History of Present Illness Reason for Consultation: RITA Requesting Physician: Kayla Ba MD Attending Physician: Kayla Ba MD History of Present Illness Mrs. Rebecca Rodrigez is a 78-year-old female with acute renal insufficiency. Nephrology consultation was requested this morning. I saw Rebecca this morning and discussed the plan of care with Dr. Gardner and Dr. Ba. Unfortunately, Rebecca is encephalopathic in the setting of her acute illness. She is very fatigued and has not been able to provide a history or engage in meaningful conversation. At the time of my evaluation this morning, Rebecca was in SVT. Since this time, her hemodynamic status has been relatively stable. I was scheduled to meet with the patient's daughter this afternoon but she unfortunately had to take her father home. After multiple attempts to contact Latonya, I was able to speak to her this evening. Rebecca has persistent oliguric RITA. Medical history is notable for newly identified cardiomyopathy with severely impaired systolic dysfunction. She was admitted to [facility] overnight yesterday. She presented to the ED from home with weakness, confusion, and shortness of breath. Approximately 1 week ago, the patient had been treated by her PCP for bronchitis with a course of azithromycin and a steroid taper. She subsequently developed abdominal pain, nausea, and vomiting. On admission, the patient was found to have elevated cardiac enzymes, new EKG changes, elevated liver enzymes, and RITA complicated by hyperkalemia. She has persistent lactic acidosis. Hyperkalemia has been treated with IV bicarbonate, kayexalate and calcium gluconate with some improvement. There has been an ongoing discussion regarding goals of care. The patient's ability to participate in this discussion is limited. DNR/DNI was established to day. There has been no formal decision regarding dialysis. Baseline creatinine prior to admission was 0.6 mg/dL in October. CT scan demonstrated unobstructed kidneys. UA notable for 30+ WBC, no RBC's, +Hgb, and granular casts. She has evidence of right sided pneumonia on imaging. I discussed the patient's condition and plan of care with Dr. Workman this afternoon. There is no immediate plan for cardiac catheterization. Betablocker therapy is being started. Lisinopril has been held since admission. The patient is on chronic prednisone for PMR. She is diabetic. Allergies Allergy/AdvReac Type Severity Reaction Status Date / Time gabapentin Allergy Severe MOUTH Verified 02/28/19 17:22 MAGNO pregabalin Allergy Severe MOUTH Verified 02/28/19 17:22 MAGNO Home Medications Home Medications Medication Instructions Recorded Confirmed Type fluticasone propionate 1 spray INTRANASAL DAILY 10/15/18 02/28/19 History lisinopril [Zestril] 5 mg PO DAILY #1 tab 10/26/18 02/28/19 Rx phenazopyridine [Pyridium] 200 mg PO TID PRN #1 tab 10/26/18 02/28/19 Rx aspirin 81 mg tablet,delayed 81 mg PO DAILY 10/29/18 02/28/19 History release prednisone 5 mg tablet 5 mg PO DAILY #30 tab 01/14/19 02/28/19 Rx ranitidine 150 mg tablet 150 mg PO HS #30 tab 01/14/19 02/28/19 Rx latanoprost 0.005 % eye drops 1 drp OPHTHALMIC (EYE) PM #2.5 ml 01/21/19 02/28/19 Rx oxycodone 5 mg tablet 5 mg PO DAILY #7 tab 01/21/19 02/28/19 Rx oxycodone ER 30 mg tablet,crush 30 mg PO Q12H #60 tab 01/31/19 02/28/19 Rx resistant,extended release 12 hr pantoprazole 40 mg tablet,delayed 40 mg PO DAILY #90 tab 02/11/19 02/28/19 Rx release Voltaren 1 % topical gel 2 gm TOP QID #100 gm NS 02/22/19 02/28/19 Rx albuterol sulfate HFA 90 1 puffs INH Q4H PRN #18 gm 02/25/19 02/28/19 Rx mcg/actuation aerosol inhaler azithromycin 250 mg tablet See Rx Instructions PO .COMPLEX #6 02/25/19 02/28/19 Rx tab furosemide 20 mg tablet 20 mg PO QAM PRN #30 tab 02/25/19 02/28/19 Rx levothyroxine 50 mcg tablet 50 mcg PO DAILY #30 tab 02/25/19 02/28/19 Rx loratadine 10 mg tablet 10 mg PO DAILY #30 tab 02/25/19 02/28/19 Rx meclizine 25 mg tablet 25 mg PO TID PRN #30 tab 02/25/19 02/28/19 Rx prednisone 20 mg tablet 40 mg PO DAILY 5 Days #10 tab 02/25/19 02/28/19 Rx simvastatin 20 mg tablet 20 mg PO HS #30 tab 02/25/19 02/28/19 Rx venlafaxine ER 150 mg 150 mg PO DAILY #30 cap 02/25/19 02/28/19 Rx capsule,extended release 24 hr Patient History Medical History Diabetic nephropathy History of TIA (transient ischemic attack) Open-angle glaucoma History of peptic ulcer Anxiety Polymyalgia rheumatica Chronic venous insufficiency Diabetes mellitus type 2 with complications Esophageal dyskinesia Vitamin D deficiency Anemia Aortic stenosis Chronic diastolic heart failure Left bundle branch block GERD (gastroesophageal reflux disease) Osteoarthritis Depression Dyslipidemia Hypothyroid CKD (chronic kidney disease), stage III Diabetic neuropathy HTN (hypertension) Rectocele Closed right hip fracture (Resolved) Hematoma of right lower extremity (Resolved) Allergic rhinitis Chronic back pain Diverticulosis Glaucoma Hiatal hernia Lumbar disc disease Lumbar spinal stenosis Ovarian mass TIA (transient ischemic attack) Urinary incontinence Uterine fibroid Vertigo Surgical History H/O rectocele repair H/O repair of rotator cuff H/O umbilical hernia repair History of bilateral knee replacement S/P evacuation of hematoma October 2018, R hip Family History Father Diabetes Hypertension Sister Diabetes Brother Diabetes Mother Hypertension Social History Preferred Language: Malay Communication Ability: Effective Visual Impairment: No Limitations Hearing Ability: Normal Booking Supervisor Required: No Beliefs That Will Affect Care: None marital status: Current Living Situation: Spouse Current Living Situation Comment: Caregiver in AM, daughter at home from 00- 1999 current occupational status: retired Other Information That Helps Us Care for You: No Feels Safe at Home: Yes Safety Concerns: Feels Safe At This Time Smoking Status: Never smoker Tobacco Type: cigarettes Cigarettes Per Day: 3 Do You Dip or Chew Tobacco: No Second Hand Exposure: No Tobacco Cessation Education Requested by Patient: No Hx Alcohol Use: No Hx Substance Use: No Dental Care, Regularly: No Physical Activity Frequency: Does not Exercise Review of Systems Review of Systems: Unobtainable due to cognitive status Physical Exam Constitutional: + ill appearing and + frail appearing Eyes: no scleral abnormality and no corneal abnormality ENMT: Mouth: no oral mucosal abnormality and oral mucous membranes not dry Neck: normal visual inspection and trachea midline Respiratory: no respiratory distress Auscultation: lungs clear to auscultation bilaterally, + diminished lung sounds and + rales Cardiovascular: Heart Sounds: normal S1 and normal S2; no murmur Vessels: + JVD Extremities: no edema Gastrointestinal (Abdomen): Percussion/Palpation: abdomen soft; abdomen nontender Musculoskeletal: Extremities: + cyanosis; no clubbing Skin: no rashes Trauma: no evidence of skin trauma Neurologic: Motor/Sensory: no tremor and no asterixis Psychiatric: Orientation: + not oriented x 3 Judgement: + impaired judgement Genitourinary: [place] draining yellow urine Results & Data Vital Signs (Past 12 Hours) Vital Signs Temp Pulse Pulse Pulse Resp BP BP 03/01/19 14:30 105 H 14 03/01/19 12:00 36.5 C 96 H 20 119/85 03/01/19 11:06 96 H 141/104 H 03/01/19 08:00 95 H 03/01/19 07:52 36.9 C 98 H 20 113/90 03/01/19 03:45 36.7 C 80 20 122/85 Pulse Ox 03/01/19 14:30 100 03/01/19 12:00 97 03/01/19 11:06 03/01/19 08:00 03/01/19 07:52 93 03/01/19 03:45 Laboratory Results Laboratory Results - last 24 hr 02/28/19 02/28/19 02/28/19 15:53 16:26 16:26 WBC 7.98 RBC 4.45 Hgb 13.3 POC Hgb Hct 38.4 POC Hct MCV 86.3 MCH 29.9 MCHC 34.6 RDW Std Deviation 49.0 H RDW Coeff of Moi 15.8 H Plt Count 176 MPV 11.2 H Immature Gran % (Auto) 0.3 Neut % (Auto) 88.7 Lymph % (Auto) 4.8 [place] % (Auto) 6.1 Eos % (Auto) 0.1 Baso % (Auto) 0.0 Immature Gran # (Auto) 0.02 Neut # (Auto) 7.08 H Lymph # (Auto) 0.38 L [place] # (Auto) 0.49 Eos # (Auto) 0.01 Baso # (Auto) 0.00 Absolute Nucleated RBC 0.09 H Nucleated RBC % (auto) 1.2 PT 21.2 H INR 2.2 H APTT 35.3 H PTT Ratio 1.3 VBG pH VBG pCO2 VBG pO2 VBG HCO3 VBG O2 Saturation VBG Base Excess Barometric Pressure POC Sodium Sodium POC Potassium Potassium POC Chloride Chloride Carbon Dioxide POC Total CO2 Anion Gap POC Anion Gap POC BUN BUN Creatinine POC Creatinine Est Cr Clr Drug Dosing Est GFR ( Amer) Est GFR (Non-Af Amer) BUN/Creatinine Ratio Glucose POC Glucose 92 POC Glucose (other) POC Lactic Acid Lenard Lactate Calcium POC Ioniz Calcium Shameka Magnesium Total Bilirubin Direct Bilirubin AST ALT Alkaline Phosphatase POC Troponin I Troponin I Total Protein Albumin Globulin Albumin/Globulin Ratio Lipase TSH Urine Color Urine Appearance Urine pH Ur Specific [place] Urine Protein Urine Glucose (UA) Urine Ketones Urine Blood Urine Nitrite Urine Bilirubin Urine Urobilinogen Ur Leukocyte Esterase Urine WBC (Auto) Urine RBC (Auto) U Hyaline Cast (Auto) U Epithel Cells (Auto) Urine Bacteria (Auto) Granular Casts Urine Yeast Lyme Disease IgG Ab Lyme Disease IgM Ab CMV IgM Ab EBV Capsid Ag IgG Ab EBV Capsid Ag IgM Ab EBV EA Restrict+Diffuse EBV Nuclear Antigen Ab Hepatitis A IgM Ab Hep Bs Antigen Hep B Core IgM Ab Hepatitis C Antibody HSV I IgM Ab (IFA) HSV II IgM Ab (IFA) Parvovirus IgG Ab Index Parvovirus IgM Ab Index 02/28/19 02/28/19 02/28/19 16:26 16:27 16:28 WBC RBC Hgb POC Hgb Hct POC Hct MCV MCH MCHC RDW Std Deviation RDW Coeff of Moi Plt Count MPV Immature Gran % (Auto) Neut % (Auto) Lymph % (Auto) [place] % (Auto) Eos % (Auto) Baso % (Auto) Immature Gran # (Auto) Neut # (Auto) Lymph # (Auto) [place] # (Auto) Eos # (Auto) Baso # (Auto) Absolute Nucleated RBC Nucleated RBC % (auto) PT INR APTT PTT Ratio VBG pH 7.30 L VBG pCO2 39 VBG pO2 39 VBG HCO3 19 VBG O2 Saturation 65.5 VBG Base Excess -7.0 Barometric Pressure 731.3 POC Sodium Sodium 132 L POC Potassium Potassium 6.1 H* POC Chloride Chloride 95 L Carbon Dioxide 19 L POC Total CO2 Anion Gap 16.0 H POC Anion Gap POC BUN BUN 64 H Creatinine 2.75 H POC Creatinine Est Cr Clr Drug Dosing Not Reportable Est GFR ( Amer) 18.7 Est GFR (Non-Af Amer) 16.1 BUN/Creatinine Ratio 23.4 H Glucose 78 POC Glucose POC Glucose (other) POC Lactic Acid Lenrad Lactate Calcium 8.2 L POC Ioniz Calcium Shameka Magnesium Total Bilirubin 1.8 H Direct Bilirubin 1.3 H AST 3231 H ALT 2943 H Alkaline Phosphatase 129 H POC Troponin I 0.49 H Troponin I 0.617 H* Total Protein 6.5 Albumin 3.2 L Globulin Albumin/Globulin Ratio Lipase 853 H TSH Urine Color Urine Appearance Urine pH Ur Specific [place] Urine Protein Urine Glucose (UA) Urine Ketones Urine Blood Urine Nitrite Urine Bilirubin Urine Urobilinogen Ur Leukocyte Esterase Urine WBC (Auto) Urine RBC (Auto) U Hyaline Cast (Auto) U Epithel Cells (Auto) Urine Bacteria (Auto) Granular Casts Urine Yeast Lyme Disease IgG Ab Lyme Disease IgM Ab CMV IgM Ab EBV Capsid Ag IgG Ab EBV Capsid Ag IgM Ab EBV EA Restrict+Diffuse EBV Nuclear Antigen Ab Hepatitis A IgM Ab Hep Bs Antigen Hep B Core IgM Ab Hepatitis C Antibody HSV I IgM Ab (IFA) HSV II IgM Ab (IFA) Parvovirus IgG Ab Index Parvovirus IgM Ab Index 02/28/19 02/28/19 02/28/19 16:31 16:35 16:39 WBC RBC Hgb POC Hgb 15.0 Hct POC Hct 44 MCV MCH MCHC RDW Std Deviation RDW Coeff of Moi Plt Count MPV Immature Gran % (Auto) Neut % (Auto) Lymph % (Auto) [place] % (Auto) Eos % (Auto) Baso % (Auto) Immature Gran # (Auto) Neut # (Auto) Lymph # (Auto) [place] # (Auto) Eos # (Auto) Baso # (Auto) Absolute Nucleated RBC Nucleated RBC % (auto) PT INR APTT PTT Ratio VBG pH VBG pCO2 VBG pO2 VBG HCO3 VBG O2 Saturation VBG Base Excess Barometric Pressure POC Sodium 128 L Sodium POC Potassium 6.2 H* Potassium POC Chloride 96 L Chloride Carbon Dioxide POC Total CO2 21 L Anion Gap POC Anion Gap 17.0 POC BUN 61 H BUN Creatinine POC Creatinine 3.0 H Est Cr Clr Drug Dosing Est GFR ( Amer) Est GFR (Non-Af Amer) BUN/Creatinine Ratio Glucose POC Glucose POC Glucose (other) 83 POC Lactic Acid Lenard 2.76 H Lactate Calcium POC Ioniz Calcium Shameka 0.90 L Magnesium Total Bilirubin Direct Bilirubin AST ALT Alkaline Phosphatase POC Troponin I Troponin I Total Protein Albumin Globulin Albumin/Globulin Ratio Lipase TSH Urine Color Dark Yellow Urine Appearance Turbid A Urine pH 5.0 Ur Specific [place] 1.024 Urine Protein 2+ H Urine Glucose (UA) Negative Urine Ketones Trace H Urine Blood 1+ H Urine Nitrite Positive A Urine Bilirubin 2+ H Urine Urobilinogen Negative Ur Leukocyte Esterase 3+ H Urine WBC (Auto) >30 H Urine RBC (Auto) 0-4 U Hyaline Cast (Auto) 1-5 U Epithel Cells (Auto) >30 H Urine Bacteria (Auto) Negative Granular Casts 1-5 H Urine Yeast Not Reportable Lyme Disease IgG Ab Lyme Disease IgM Ab CMV IgM Ab EBV Capsid Ag IgG Ab EBV Capsid Ag IgM Ab EBV EA Restrict+Diffuse EBV Nuclear Antigen Ab Hepatitis A IgM Ab Hep Bs Antigen Hep B Core IgM Ab Hepatitis C Antibody HSV I IgM Ab (IFA) HSV II IgM Ab (IFA) Parvovirus IgG Ab Index Parvovirus IgM Ab Index 02/28/19 03/01/19 03/01/19 22:52 02:56 02:56 WBC 7.98 RBC 4.45 Hgb 13.4 POC Hgb Hct 38.6 POC Hct MCV 86.7 MCH 30.1 MCHC 34.7 RDW Std Deviation 48.9 H RDW Coeff of Moi 15.7 H Plt Count 142 MPV 10.2 Immature Gran % (Auto) 0.4 Neut % (Auto) 81.4 Lymph % (Auto) 9.5 [place] % (Auto) 8.5 Eos % (Auto) 0.1 Baso % (Auto) 0.1 Immature Gran # (Auto) 0.03 H Neut # (Auto) 6.49 Lymph # (Auto) 0.76 L [place] # (Auto) 0.68 H Eos # (Auto) 0.01 Baso # (Auto) 0.01 Absolute Nucleated RBC 0.13 H Nucleated RBC % (auto) 1.6 PT INR APTT PTT Ratio VBG pH VBG pCO2 VBG pO2 VBG HCO3 VBG O2 Saturation VBG Base Excess Barometric Pressure POC Sodium Sodium 131 L 130 L POC Potassium Potassium 5.9 H 5.7 H POC Chloride Chloride 95 L 95 L Carbon Dioxide 21 19 L POC Total CO2 Anion Gap 15.0 H 16.0 H POC Anion Gap POC BUN BUN 69 H 70 H Creatinine 2.99 H 2.98 H POC Creatinine Est Cr Clr Drug Dosing 13.2 13.3 Est GFR ( Amer) 16.9 16.9 Est GFR (Non-Af Amer) 14.5 14.6 BUN/Creatinine Ratio 23.1 H 23.6 H Glucose 76 78 POC Glucose POC Glucose (other) POC Lactic Acid Lenard Lactate Calcium 7.8 L 7.4 L POC Ioniz Calcium Shameka Magnesium 1.9 Total Bilirubin 1.7 H Direct Bilirubin 1.1 H AST 2639 H ALT 2717 H Alkaline Phosphatase 123 H POC Troponin I Troponin I 0.726 H* 0.850 H* Total Protein 6.1 L Albumin 3.0 L Globulin Albumin/Globulin Ratio Lipase TSH 1.390 Urine Color Urine Appearance Urine pH Ur Specific [place] Urine Protein Urine Glucose (UA) Urine Ketones Urine Blood Urine Nitrite Urine Bilirubin Urine Urobilinogen Ur Leukocyte Esterase Urine WBC (Auto) Urine RBC (Auto) U Hyaline Cast (Auto) U Epithel Cells (Auto) Urine Bacteria (Auto) Granular Casts Urine Yeast Lyme Disease IgG Ab Lyme Disease IgM Ab CMV IgM Ab EBV Capsid Ag IgG Ab EBV Capsid Ag IgM Ab EBV EA Restrict+Diffuse EBV Nuclear Antigen Ab Hepatitis A IgM Ab Hep Bs Antigen Hep B Core IgM Ab Hepatitis C Antibody HSV I IgM Ab (IFA) HSV II IgM Ab (IFA) Parvovirus IgG Ab Index Parvovirus IgM Ab Index 03/01/19 03/01/19 03/01/19 07:16 07:49 07:50 WBC RBC Hgb POC Hgb Hct POC Hct MCV MCH MCHC RDW Std Deviation RDW Coeff of Moi Plt Count MPV Immature Gran % (Auto) Neut % (Auto) Lymph % (Auto) [place] % (Auto) Eos % (Auto) Baso % (Auto) Immature Gran # (Auto) Neut # (Auto) Lymph # (Auto) [place] # (Auto) Eos # (Auto) Baso # (Auto) Absolute Nucleated RBC Nucleated RBC % (auto) PT INR APTT PTT Ratio VBG pH VBG pCO2 VBG pO2 VBG HCO3 VBG O2 Saturation VBG Base Excess Barometric Pressure POC Sodium Sodium 132 L POC Potassium Potassium 5.6 H POC Chloride Chloride 98 Carbon Dioxide 18 L POC Total CO2 Anion Gap 16.0 H POC Anion Gap POC BUN BUN 73 H Creatinine 3.06 H POC Creatinine Est Cr Clr Drug Dosing 13.1 Est GFR ( Amer) 16.4 Est GFR (Non-Af Amer) 14.1 BUN/Creatinine Ratio 23.7 H Glucose 62 L POC Glucose 59 L* 63 L* POC Glucose (other) POC Lactic Acid Lenard Lactate Calcium 7.7 L POC Ioniz Calcium Shameka Magnesium Total Bilirubin Direct Bilirubin AST ALT Alkaline Phosphatase POC Troponin I Troponin I Total Protein Albumin Globulin Albumin/Globulin Ratio Lipase TSH Urine Color Urine Appearance Urine pH Ur Specific [place] Urine Protein Urine Glucose (UA) Urine Ketones Urine Blood Urine Nitrite Urine Bilirubin Urine Urobilinogen Ur Leukocyte Esterase Urine WBC (Auto) Urine RBC (Auto) U Hyaline Cast (Auto) U Epithel Cells (Auto) Urine Bacteria (Auto) Granular Casts Urine Yeast Lyme Disease IgG Ab Lyme Disease IgM Ab CMV IgM Ab EBV Capsid Ag IgG Ab EBV Capsid Ag IgM Ab EBV EA Restrict+Diffuse EBV Nuclear Antigen Ab Hepatitis A IgM Ab Hep Bs Antigen Hep B Core IgM Ab Hepatitis C Antibody HSV I IgM Ab (IFA) HSV II IgM Ab (IFA) Parvovirus IgG Ab Index Parvovirus IgM Ab Index 03/01/19 03/01/19 03/01/19 08:15 08:42 10:53 WBC RBC Hgb POC Hgb Hct POC Hct MCV MCH MCHC RDW Std Deviation RDW Coeff of Moi Plt Count MPV Immature Gran % (Auto) Neut % (Auto) Lymph % (Auto) [place] % (Auto) Eos % (Auto) Baso % (Auto) Immature Gran # (Auto) Neut # (Auto) Lymph # (Auto) [place] # (Auto) Eos # (Auto) Baso # (Auto) Absolute Nucleated RBC Nucleated RBC % (auto) PT INR APTT PTT Ratio VBG pH VBG pCO2 VBG pO2 VBG HCO3 VBG O2 Saturation VBG Base Excess Barometric Pressure POC Sodium Sodium POC Potassium Potassium POC Chloride Chloride Carbon Dioxide POC Total CO2 Anion Gap POC Anion Gap POC BUN BUN Creatinine POC Creatinine Est Cr Clr Drug Dosing Est GFR ( Amer) Est GFR (Non-Af Amer) BUN/Creatinine Ratio Glucose POC Glucose 59 L* 181 H 160 H POC Glucose (other) POC Lactic Acid Lenard Lactate Calcium POC Ioniz Calcium Shameka Magnesium Total Bilirubin Direct Bilirubin AST ALT Alkaline Phosphatase POC Troponin I Troponin I Total Protein Albumin Globulin Albumin/Globulin Ratio Lipase TSH Urine Color Urine Appearance Urine pH Ur Specific [place] Urine Protein Urine Glucose (UA) Urine Ketones Urine Blood Urine Nitrite Urine Bilirubin Urine Urobilinogen Ur Leukocyte Esterase Urine WBC (Auto) Urine RBC (Auto) U Hyaline Cast (Auto) U Epithel Cells (Auto) Urine Bacteria (Auto) Granular Casts Urine Yeast Lyme Disease IgG Ab Lyme Disease IgM Ab CMV IgM Ab EBV Capsid Ag IgG Ab EBV Capsid Ag IgM Ab EBV EA Restrict+Diffuse EBV Nuclear Antigen Ab Hepatitis A IgM Ab Hep Bs Antigen Hep B Core IgM Ab Hepatitis C Antibody HSV I IgM Ab (IFA) HSV II IgM Ab (IFA) Parvovirus IgG Ab Index Parvovirus IgM Ab Index 03/01/19 03/01/19 03/01/19 12:47 12:47 12:47 WBC RBC Hgb POC Hgb Hct POC Hct MCV MCH MCHC RDW Std Deviation RDW Coeff of Moi Plt Count MPV Immature Gran % (Auto) Neut % (Auto) Lymph % (Auto) [place] % (Auto) Eos % (Auto) Baso % (Auto) Immature Gran # (Auto) Neut # (Auto) Lymph # (Auto) [place] # (Auto) Eos # (Auto) Baso # (Auto) Absolute Nucleated RBC Nucleated RBC % (auto) PT 27.2 H INR 2.9 H APTT PTT Ratio VBG pH VBG pCO2 VBG pO2 VBG HCO3 VBG O2 Saturation VBG Base Excess Barometric Pressure POC Sodium Sodium 132 L POC Potassium Potassium 5.6 H POC Chloride Chloride 99 Carbon Dioxide 17 L POC Total CO2 Anion Gap 15.0 H POC Anion Gap POC BUN BUN 76 H Creatinine 3.12 H POC Creatinine Est Cr Clr Drug Dosing 12.8 Est GFR ( Amer) 16.0 Est GFR (Non-Af Amer) 13.8 BUN/Creatinine Ratio 24.4 H Glucose 132 H POC Glucose POC Glucose (other) POC Lactic Acid Lenard Lactate 3.1 H* Calcium 7.5 L POC Ioniz Calcium Shameka Magnesium Total Bilirubin 2.0 H Direct Bilirubin AST 2352 H ALT 2700 H Alkaline Phosphatase 124 H POC Troponin I Troponin I 0.642 H* Total Protein 6.1 L Albumin 3.0 L Globulin 3.1 Albumin/Globulin Ratio 1.0 Lipase TSH Urine Color Urine Appearance Urine pH Ur Specific [place] Urine Protein Urine Glucose (UA) Urine Ketones Urine Blood Urine Nitrite Urine Bilirubin Urine Urobilinogen Ur Leukocyte Esterase Urine WBC (Auto) Urine RBC (Auto) U Hyaline Cast (Auto) U Epithel Cells (Auto) Urine Bacteria (Auto) Granular Casts Urine Yeast Lyme Disease IgG Ab Lyme Disease IgM Ab CMV IgM Ab EBV Capsid Ag IgG Ab EBV Capsid Ag IgM Ab EBV EA Restrict+Diffuse EBV Nuclear Antigen Ab Hepatitis A IgM Ab Hep Bs Antigen Hep B Core IgM Ab Hepatitis C Antibody HSV I IgM Ab (IFA) HSV II IgM Ab (IFA) Parvovirus IgG Ab Index Parvovirus IgM Ab Index 03/01/19 03/01/19 03/01/19 12:47 13:36 13:36 WBC RBC Hgb POC Hgb Hct POC Hct MCV MCH MCHC RDW Std Deviation RDW Coeff of Moi Plt Count MPV Immature Gran % (Auto) Neut % (Auto) Lymph % (Auto) [place] % (Auto) Eos % (Auto) Baso % (Auto) Immature Gran # (Auto) Neut # (Auto) Lymph # (Auto) [place] # (Auto) Eos # (Auto) Baso # (Auto) Absolute Nucleated RBC Nucleated RBC % (auto) PT INR APTT PTT Ratio VBG pH VBG pCO2 VBG pO2 VBG HCO3 VBG O2 Saturation VBG Base Excess Barometric Pressure POC Sodium Sodium POC Potassium Potassium POC Chloride Chloride Carbon Dioxide POC Total CO2 Anion Gap POC Anion Gap POC BUN BUN Creatinine POC Creatinine Est Cr Clr Drug Dosing Est GFR ( Amer) Est GFR (Non-Af Amer) BUN/Creatinine Ratio Glucose POC Glucose POC Glucose (other) POC Lactic Acid Lenard Lactate Calcium POC Ioniz Calcium Shameka Magnesium Total Bilirubin Direct Bilirubin AST ALT Alkaline Phosphatase POC Troponin I Troponin I Total Protein Albumin Globulin Albumin/Globulin Ratio Lipase TSH Urine Color Urine Appearance Urine pH Ur Specific [place] Urine Protein Urine Glucose (UA) Urine Ketones Urine Blood Urine Nitrite Urine Bilirubin Urine Urobilinogen Ur Leukocyte Esterase Urine WBC (Auto) Urine RBC (Auto) U Hyaline Cast (Auto) U Epithel Cells (Auto) Urine Bacteria (Auto) Granular Casts Urine Yeast Lyme Disease IgG Ab Negative Lyme Disease IgM Ab Negative CMV IgM Ab Pending EBV Capsid Ag IgG Ab EBV Capsid Ag IgM Ab EBV EA Restrict+Diffuse EBV Nuclear Antigen Ab Hepatitis A IgM Ab Hep Bs Antigen Neg Hep B Core IgM Ab Hepatitis C Antibody Neg HSV I IgM Ab (IFA) Pending HSV II IgM Ab (IFA) Pending Parvovirus IgG Ab Index Pending Parvovirus IgM Ab Index Pending 03/01/19 03/01/19 13:36 13:36 WBC RBC Hgb POC Hgb Hct POC Hct MCV MCH MCHC RDW Std Deviation RDW Coeff of Moi Plt Count MPV Immature Gran % (Auto) Neut % (Auto) Lymph % (Auto) [place] % (Auto) Eos % (Auto) Baso % (Auto) Immature Gran # (Auto) Neut # (Auto) Lymph # (Auto) [place] # (Auto) Eos # (Auto) Baso # (Auto) Absolute Nucleated RBC Nucleated RBC % (auto) PT INR APTT PTT Ratio VBG pH VBG pCO2 VBG pO2 VBG HCO3 VBG O2 Saturation VBG Base Excess Barometric Pressure POC Sodium Sodium POC Potassium Potassium POC Chloride Chloride Carbon Dioxide POC Total CO2 Anion Gap POC Anion Gap POC BUN BUN Creatinine POC Creatinine Est Cr Clr Drug Dosing Est GFR ( Amer) Est GFR (Non-Af Amer) BUN/Creatinine Ratio Glucose POC Glucose POC Glucose (other) POC Lactic Acid [place] Lactate Calcium POC Ioniz Calcium [place] Magnesium Total Bilirubin Direct Bilirubin AST ALT Alkaline Phosphatase POC Troponin I Troponin I Total Protein Albumin Globulin Albumin/Globulin Ratio Lipase TSH Urine Color Urine Appearance Urine pH Ur Specific [place] Urine Protein Urine Glucose (UA) Urine Ketones Urine Blood Urine Nitrite Urine Bilirubin Urine Urobilinogen Ur Leukocyte Esterase Urine WBC (Auto) Urine RBC (Auto) U Hyaline Cast (Auto) U Epithel Cells (Auto) Urine Bacteria (Auto) Granular Casts Urine Yeast Lyme Disease IgG Ab Lyme Disease IgM Ab CMV IgM Ab EBV Capsid Ag IgG Ab Pending EBV Capsid Ag IgM Ab Pending EBV EA Restrict+Diffuse Pending EBV Nuclear Antigen Ab Pending Hepatitis A IgM Ab Pending Hep Bs Antigen Hep B Core IgM Ab Pending Hepatitis C Antibody HSV I IgM Ab (IFA) HSV II IgM Ab (IFA) Parvovirus IgG Ab Index Parvovirus IgM Ab Index
[2019-03-01] MEDS: FUROSEMIDE 100 MG in DEXTROSE 5% 90 ML IV SCH (15:47)
[2019-03-01 20:40] LABS: BUN Creatinine Ratio 23.7 (10-20); Calcium 7.4 mg/dl (8.5-10.1); Est GFR (African American) 14.7; Est GFR (Non-African American) 12.7; Potassium 5.8 mmol/L (3.5-5.1)
[2019-03-01] MEDS: SIMVASTATIN 20 MG TAB PO SCH (21:12)
[2019-03-01] MEDS: LATANOPROST 0.005% OP SOLN 2.5 ML BTL OP SCH (21:12)
[2019-03-01] MEDS: CARVEDILOL 3.125 MG TAB PO SCH (21:12)
[2019-03-02] MEDS: PIPERACILLIN/TAZOBACTAM 3.375 GM in DEXTROSE 5% 100 ML IV SCH ×2 (00:32→10:34)
[2019-03-02] MEDS: LEVOTHYROXINE SODIUM 50 MCG TABLET PO SCH ×2 (06:14→06:30)
[2019-03-02 06:20] LABS: Hematocrit (blood only) 38.4 % (37-47); Hemoglobin 13.4 g/dL (12.0-16.0); Mean Corpuscular Hgb Conc 34.9 g/dL (32-36); Nucleated RBC # (auto) 0.21 K/uL (0-0); Nucleated RBC % (auto) 2.1 %; RDW Coefficient of Variation 15.9 % (11.5-14.5); RDW Standard Deviation 48.5 fL (36.4-46.3); Red Blood Count 4.52 M/uL (4.2-5.4); White Blood Count 10.22 K/uL (4.8-10.8)
[2019-03-02 06:26] LABS: INR 3.3 (0.9-1.1); Prothrombin Time 30.8 Seconds (9.0-12.0)
[2019-03-02 06:55] LABS: Mean Platelet Volume 11.5 fL (7.4-10.4); Platelet Count 95 K/uL (130-400)
[2019-03-02 06:56] LABS: Platelet Estimate Decreased (Normal)
[2019-03-02 07:01] LABS: Albumin Level 2.8 gm/dl (3.4-5.0); BUN Creatinine Ratio 23.3 (10-20); Calcium 6.9 mg/dl (8.5-10.1); Creatinine Clr Calc Pharmacy 11.4 ml/min; Est GFR (African American) 13.9; Potassium 5.3 mmol/L (3.5-5.1)
[2019-03-02 07:21] LABS: Bilirubin,Total 2.5 mg/dl (0.2-1); Globulin 2.9 gm/dl (2.5-4.0); Total Protein 5.7 gm/dl (6.4-8.2)
--- NOTE | 2019-03-02 08:23 | Cardiology Progress Note ---
Date of Service March 02, 2019 Assessment & Plan (1) Cardiomyopathy: She presents now with a severe cardiomyopathy. Based on symptoms it is relatively recent in onset, as well as an echocardiogram in October of this year showing normal left ventricular function. A number of possibilities exist, this could be ischemic although she does not have any specific history to suggest that so that seems less likely then other causes, it could be due to left bundle branch block which by itself can cause LV dysfunction, it could be an idiopathic cardiomyopathy which presented as a left bundle branch block and is now progressed to left ventricular dysfunction. We will need to investigate for ischemic heart disease, a catheterization would be ideal but given her acute kidney failure that is not possible now; we could consider a nuclear stress test but I do not think it is urgent to make the diagnosis and she is too ill to make any use of the information it would provide. Although her cardiac enzymes were slightly elevated it is not sufficient to consider this an acute ischemic event and I suspect it is due to demand ischemia and acute renal failure. For now I am going to observe. We need to consider addition of heart failure medications, she was on lisinopril as an outpatient but we should use beta-thor here, currently on low dose carvedilol started yesterday. (2) Acute systolic (congestive) heart failure: She seems to be in at least moderate congestive heart failure, based on her symptoms this has been for several weeks and she does not have peripheral edema. She is fluid overloaded and we should try to diuresis, I do not know that we can do that very effectively with her acute renal failure. I have not altered her medications. (3) Acute kidney failure, unspecified: She presents with acute renal failure, the cause is not clear. Her creatinine is increasing since admission and again today. This is likely to interfere with diuresis and makes a catheterization impossible at the moment. (4) Hyperkalemia: I assume this is due to her kidney failure. She was hyperkalemic, her potassium remains elevated but has improved today. (5) Left bundle branch block: She does have left bundle branch block which was identified first in October 2018. At that time her left ventricular function was normal. We do not know when it occurred, perhaps it occurred around that time. There is no obvious cause for it at that time, therefore no specific treatment. That remains true, if it turns out that her cardiomyopathy is in part due to left bundle branch block and dyssynchrony (which is sometimes difficult to prove but we can exclude ischemic heart disease in any case) then biventricular pacing would certainly be an option. We should try medical therapy first. Her Lyme screen is negative. (6) Aortic stenosis: She has mild aortic stenosis which has been known in the past. This does not appear severe enough to affect her cardiac function and I do not think this is a factor in her cardiomyopathy. There is no specific treatment for it at the moment. (7) Paroxysmal SVT (supraventricular tachycardia): She has no history of SVT (although she was asymptomatic here so she could have had it in the past) but had SVT in the morning of 03/01/2019 which required adenosine to terminate after about 20 minutes. It probably involves the AV node due to termination with adenosine. It may be present because of a high catecholamine state now, but she may well have had it in the past and been unaware of it. It does conceivably explain her presentation with acute renal failure and liver abnormalities as well as cardiac enzyme abnormalities if she was hypotensive for a substantial period of time prior to admission. Since she was asymptomatic during the episode this hospitalization that is conceivable. I would treat this with a beta-thor since she should be on one for cardiomyopathy in any case. That may help with the catecholamines and may be specifically treat the arrhythmia. If that does not work we can consider ablation and I would not do that now. Subjective I saw the patient this morning with her daughter at bedside. The patient appears uncomfortable, although she does not seem to have any specific complaints. She seems very sleepy but is arousable and will respond although it is difficult to carry on meaningful conversation. She does not have any specific cardiac complaints. She does not seem to have any pain. Physical Exam Physical Exam: Constitutional: Alert, cooperative and in moderate distress. She appears tired and sleepy. HEENT: Unremarkable Neck: No jugular venous distention, carotid pulses are normal and equal bilaterally without bruits. Pulmonary: Decreased breath sounds bilaterally with crackles at both bases. Cardiac: Regular rhythm with a grade 2/6 crescendo decrescendo murmur at the base, no gallop or rub. Abdomen: Soft, nontender with normal bowel sounds. Extremities: No edema. Skin: Ecchymoses on arms and legs. Results & Data Vital Signs (Past 12 Hours) Vital Signs Temp Pulse Pulse Resp BP Pulse Ox 03/02/19 07:34 36.7 C 88 12 114/83 100 03/02/19 03:42 92 H 18 110/69 100 03/02/19 00:27 36.8 C 92 H 21 127/95 98 Diagnostic Findings Telemetry: Sinus rhythm, no further SVT since yesterday morning.
[2019-03-02] MEDS: FUROSEMIDE 100 MG in DEXTROSE 5% 90 ML IV SCH (08:42)
[2019-03-02] MEDS ORDERED: SODIUM CHLORIDE 0.9% 1000ML 1,000 ML IV PRN (09:17)
--- NOTE | 2019-03-02 09:26 | Nephrology Progress Note ---
Date of Service March 02, 2019 Assessment & Plan (1) Acute kidney injury: -- Remains oliguric on Furosemide gtt -- Complicated by acidosis and hyperkalemia -- Additional dose of Kayexalate provided overnight for hyperkalemia -- Clinically consistent with ATN -- After a long discussion with the patient's family, a reasonable decision was made to proceed with dialysis via temporary catheter at this time -- Orders for HD have been entered into the EMR and discussed with the dialysis nurse -- I discussed the plan with the ICU team, the patient will be transferred to the ICU to initiate hemodialysis -- Rebecca remains DNR/DNI, her daughter confirmed that she is comfortable with a limited trial of hemodialysis at this time but has reservations regarding ever having a permcath placed -- Medications are acceptable for kidney function -- Continue to document strict I/O's (2) Acute systolic (congestive) heart failure: (3) Cardiomyopathy: -- Low dose carvedilol started yesterday -- Cardiac catheterization deferred at this time (4) RLL pneumonia: -- Remains on doxy and Zosyn (5) Hyperkalemia: -- Hemodialysis today -- (6) SVT (supraventricular tachycardia): (7) Elevated LFTs: (8) Elevated lactic acid level: (9) UTI (urinary tract infection): (10) Polymyalgia rheumatica: -- Maintained on chronic prednisone (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 Rebecca remains confused. Rebecca did remember me from yesterday. However, she did not participate in discussion. She was seen and evaluated with her daughter (Latonya) at the bedside. Plan of care was discussed with Dr. Workman. She has had a good response to carvedilol. No fevers. Review of Systems Review of Systems: Unobtainable due to cognitive status Physical Exam Constitutional: + ill appearing and + frail appearing Eyes: no scleral abnormality and no corneal abnormality ENMT: Mouth: no oral mucosal abnormality and oral mucous membranes not dry Neck: normal visual inspection and trachea midline Respiratory: no respiratory distress Auscultation: lungs clear to auscultation bilaterally, + diminished lung sounds and + rales Cardiovascular: Heart Sounds: normal S1 and normal S2; no murmur Vessels: + JVD Extremities: no edema Gastrointestinal (Abdomen): Percussion/Palpation: abdomen soft; abdomen nontender Musculoskeletal: Extremities: + cyanosis; no clubbing Skin: no rashes Trauma: no evidence of skin trauma Neurologic: Motor/Sensory: no tremor and no asterixis Psychiatric: Orientation: + not oriented x 3 Judgement: + impaired judgement Results & Data Vital Signs (Past 12 Hours) Vital Signs Temp Pulse Pulse Resp BP Pulse Ox 03/02/19 07:34 36.7 C 88 12 114/83 100 03/02/19 03:42 92 H 18 110/69 100 03/02/19 00:27 36.8 C 92 H 21 127/95 98 Laboratory Results Laboratory Results - last 24 hr 03/01/19 03/01/19 03/01/19 10:53 12:47 12:47 WBC RBC Hgb Hct MCV MCH MCHC RDW Std Deviation RDW Coeff of Moi Plt Count MPV Absolute Nucleated RBC Nucleated RBC % (auto) Platelet Estimate PT 27.2 H INR 2.9 H Fibrinogen Sodium 132 L Potassium 5.6 H Chloride 99 Carbon Dioxide 17 L Anion Gap 15.0 H BUN 76 H Creatinine 3.12 H Est Cr Clr Drug Dosing 12.8 Est GFR ( Amer) 16.0 Est GFR (Non-Af Amer) 13.8 BUN/Creatinine Ratio 24.4 H Glucose 132 H POC Glucose 160 H Lactate Calcium 7.5 L Magnesium Total Bilirubin 2.0 H AST 2352 H ALT 2700 H Alkaline Phosphatase 124 H Troponin I 0.642 H* Total Protein 6.1 L Albumin 3.0 L Globulin 3.1 Albumin/Globulin Ratio 1.0 Lyme Disease IgG Ab Lyme Disease IgM Ab CMV IgM Ab EBV Capsid Ag IgG Ab EBV Capsid Ag IgM Ab EBV EA Restrict+Diffuse EBV Nuclear Antigen Ab Hepatitis A IgM Ab Hep Bs Antigen Hep B Core IgM Ab Hepatitis C Antibody HSV I IgM Ab (IFA) HSV II IgM Ab (IFA) Parvovirus IgG Ab Index Parvovirus IgM Ab Index 03/01/19 03/01/19 03/01/19 12:47 12:47 13:36 WBC RBC Hgb Hct MCV MCH MCHC RDW Std Deviation RDW Coeff of Moi Plt Count MPV Absolute Nucleated RBC Nucleated RBC % (auto) Platelet Estimate PT INR Fibrinogen Sodium Potassium Chloride Carbon Dioxide Anion Gap BUN Creatinine Est Cr Clr Drug Dosing Est GFR ( Amer) Est GFR (Non-Af Amer) BUN/Creatinine Ratio Glucose POC Glucose Lactate 3.1 H* Calcium Magnesium Total Bilirubin AST ALT Alkaline Phosphatase Troponin I Total Protein Albumin Globulin Albumin/Globulin Ratio Lyme Disease IgG Ab Negative Lyme Disease IgM Ab Negative CMV IgM Ab Pending EBV Capsid Ag IgG Ab EBV Capsid Ag IgM Ab EBV EA Restrict+Diffuse EBV Nuclear Antigen Ab Hepatitis A IgM Ab Hep Bs Antigen Hep B Core IgM Ab Hepatitis C Antibody HSV I IgM Ab (IFA) Pending HSV II IgM Ab (IFA) Pending Parvovirus IgG Ab Index Pending Parvovirus IgM Ab Index Pending 03/01/19 03/01/19 03/01/19 13:36 13:36 13:36 WBC RBC Hgb Hct MCV MCH MCHC RDW Std Deviation RDW Coeff of Moi Plt Count MPV Absolute Nucleated RBC Nucleated RBC % (auto) Platelet Estimate PT INR Fibrinogen Sodium Potassium Chloride Carbon Dioxide Anion Gap BUN Creatinine Est Cr Clr Drug Dosing Est GFR ( Amer) Est GFR (Non-Af Amer) BUN/Creatinine Ratio Glucose POC Glucose Lactate Calcium Magnesium Total Bilirubin AST ALT Alkaline Phosphatase Troponin I Total Protein Albumin Globulin Albumin/Globulin Ratio Lyme Disease IgG Ab Lyme Disease IgM Ab CMV IgM Ab EBV Capsid Ag IgG Ab Pending EBV Capsid Ag IgM Ab Pending EBV EA Restrict+Diffuse Pending EBV Nuclear Antigen Ab Pending Hepatitis A IgM Ab Pending Hep Bs Antigen Neg Hep B Core IgM Ab Pending Hepatitis C Antibody Neg HSV I IgM Ab (IFA) HSV II IgM Ab (IFA) Parvovirus IgG Ab Index Parvovirus IgM Ab Index 03/01/19 03/01/19 03/01/19 16:16 18:42 20:12 WBC RBC Hgb Hct MCV MCH MCHC RDW Std Deviation RDW Coeff of Moi Plt Count MPV Absolute Nucleated RBC Nucleated RBC % (auto) Platelet Estimate PT INR Fibrinogen Sodium 134 L Potassium 5.8 H Chloride 98 Carbon Dioxide 20 L Anion Gap 16.0 H BUN 79 H Creatinine 3.34 H Est Cr Clr Drug Dosing 12.0 Est GFR ( Amer) 14.7 Est GFR (Non-Af Amer) 12.7 BUN/Creatinine Ratio 23.7 H Glucose 128 H POC Glucose 120 H Lactate 3.4 H* Calcium 7.4 L Magnesium Total Bilirubin AST ALT Alkaline Phosphatase Troponin I Total Protein Albumin Globulin Albumin/Globulin Ratio Lyme Disease IgG Ab Lyme Disease IgM Ab CMV IgM Ab EBV Capsid Ag IgG Ab EBV Capsid Ag IgM Ab EBV EA Restrict+Diffuse EBV Nuclear Antigen Ab Hepatitis A IgM Ab Hep Bs Antigen Hep B Core IgM Ab Hepatitis C Antibody HSV I IgM Ab (IFA) HSV II IgM Ab (IFA) Parvovirus IgG Ab Index Parvovirus IgM Ab Index 03/01/19 03/02/19 03/02/19 20:35 05:46 05:46 WBC 10.22 RBC 4.52 Hgb 13.4 Hct 38.4 MCV 85.0 MCH 29.6 MCHC 34.9 RDW Std Deviation 48.5 H RDW Coeff of Moi 15.9 H Plt Count 95 L MPV 11.5 H Absolute Nucleated RBC 0.21 H Nucleated RBC % (auto) 2.1 Platelet Estimate Decreased L PT 30.8 H INR 3.3 H Fibrinogen Sodium Potassium Chloride Carbon Dioxide Anion Gap BUN Creatinine Est Cr Clr Drug Dosing Est GFR ( Amer) Est GFR (Non-Af Amer) BUN/Creatinine Ratio Glucose POC Glucose 119 H Lactate Calcium Magnesium Total Bilirubin AST ALT Alkaline Phosphatase Troponin I Total Protein Albumin Globulin Albumin/Globulin Ratio Lyme Disease IgG Ab Lyme Disease IgM Ab CMV IgM Ab EBV Capsid Ag IgG Ab EBV Capsid Ag IgM Ab EBV EA Restrict+Diffuse EBV Nuclear Antigen Ab Hepatitis A IgM Ab Hep Bs Antigen Hep B Core IgM Ab Hepatitis C Antibody HSV I IgM Ab (IFA) HSV II IgM Ab (IFA) Parvovirus IgG Ab Index Parvovirus IgM Ab Index 03/02/19 03/02/19 03/02/19 05:46 07:33 08:20 WBC RBC Hgb Hct MCV MCH MCHC RDW Std Deviation RDW Coeff of Moi Plt Count MPV Absolute Nucleated RBC Nucleated RBC % (auto) Platelet Estimate PT INR Fibrinogen Pending Sodium 134 L Potassium 5.3 H Chloride 98 Carbon Dioxide 19 L Anion Gap 17.0 H BUN 82 H Creatinine 3.50 H Est Cr Clr Drug Dosing 11.4 Est GFR ( Amer) 13.9 Est GFR (Non-Af Amer) 12.0 BUN/Creatinine Ratio 23.3 H Glucose 125 H POC Glucose 131 H Lactate Calcium 6.9 L Magnesium 2.0 Total Bilirubin 2.5 H AST 2616 H ALT 2822 H Alkaline Phosphatase 120 H Troponin I Total Protein 5.7 L Albumin 2.8 L Globulin 2.9 Albumin/Globulin Ratio 1.0 Lyme Disease IgG Ab Lyme Disease IgM Ab CMV IgM Ab EBV Capsid Ag IgG Ab EBV Capsid Ag IgM Ab EBV EA Restrict+Diffuse EBV Nuclear Antigen Ab Hepatitis A IgM Ab Hep Bs Antigen Hep B Core IgM Ab Hepatitis C Antibody HSV I IgM Ab (IFA) HSV II IgM Ab (IFA) Parvovirus IgG Ab Index Parvovirus IgM Ab Index
[2019-03-02] MEDS: OXYCODONE HCL IR 5 MG TAB (IMMEDIATE RELEASE) PO SCH (09:35)
[2019-03-02] MEDS: OXYCODONE HCL 15 MG TABCR (OXYCONTIN) PO SCH ×2 (09:35→21:19)
[2019-03-02] MEDS: ASPIRIN 81 MG ECTAB PO SCH (09:36)
[2019-03-02] MEDS: PANTOprazole 40 MG TAB PO SCH (09:36)
[2019-03-02] MEDS: CARVEDILOL 3.125 MG TAB PO SCH (09:36)
[2019-03-02] MEDS: VENLAFAXINE HCL XR 150 MG CAPXR PO SCH (09:43)
[2019-03-02] MEDS: predniSONE 5 MG TAB PO SCH (09:43)
[2019-03-02] MEDS: LORATADINE 10 MG TAB PO SCH (09:43)
[2019-03-02 09:49] LABS: Fibrinogen 124 mg/dl (184-400)
[2019-03-02] MEDS: DOXYCYCLINE HYCLATE 100 MG in DEXTROSE 5% 100 ML IV SCH (10:34)
[2019-03-02 12:12] LABS: Hepatitis B Surface Antibody Non-Immune
[2019-03-02 12:23] LABS: Hepatitis B Surface Antigen Neg (Neg)
--- NOTE | 2019-03-02 12:31 | Hospitalist Progress Note ---
Date of Service March 02, 2019 Assessment & Plan (1) Sepsis: - Presented with cough and SOB following recent diagnosis of acute bronchitis. - Tachycardic (SVT on 03/01 as noted below), elevated LFTs, acute renal failure noted on admission, as well as CHF - evidence of multisystem organ failure. - CT of the chest does show infiltrates in the right middle and right lower lobes, however this could be ?asymmetric pulmonary edema. - UC also positive for Enterococcus; on IV Zosyn. - was upgraded to ICU for further evaluation and care. (2) Elevated lactic acid level: - Lactic acid level elevated, 3.4. Could be secondary to worsening renal failure and liver failure. (3) High anion gap metabolic acidosis: - In setting of acute renal failure. - Nephrology following, will initiate dialysis today. - Monitor BMP per ICU protocol. (4) Acute kidney injury: - Creatinine trending upward with oliguria, hyperkalemia, AGMA. - Received Lasix drip with no improvement. - Continue Galeana for accurate I/Os and obstruction. - Nephrology following, plan to start temporary dialysis this morning following discussion with family. - Renally dose all meds. (5) Hyperkalemia: - In setting of ARF/metabolic acidosis. - Will start HD today per nephro. (6) RLL pneumonia: - Chest CT with RML and RLL opacities concerning for infection. - Continue Zosyn (changed from Rocephin due to enterococcus in the urine) and Doxycycline for empiric coverage. (7) UTI (urinary tract infection): - UC positive for Enterococcus species; on Zosyn IV as noted above. - Follow urine culture for final sensitivities (8) Elevated troponin I level: - Trop peaked at 0.850; concern for recent cardiac event in setting of severely reduced EF compared to recent TTE and new wall motion abnormalities. - Type II DE due to demand ischemia. - Cardiology consulted; no anticipated acute intervention, but may need cardiac catheterization especially if going to need dialysis anyway, then a dye load would not be an issue from a renal perspective. (9) Paroxysmal SVT (supraventricular tachycardia): - SVT noted on 03/01/19 with heart rate in the 170s, hypotension and decreased mentation - received Adenosine with resolution. - Concern for episodes of SVT at home leading to hypotensive episodes --> ATN with ARF as a result. - Continue electronic device monitor. - Cardiology following, appreciate input. - Started Coreg 3.125 mg BID. (10) Elevated LFTs: - LFTs are significantly elevated, as well as elevated INR, and decreased platelet count - related to septic shock vs. hepatic congestion from CHF and cardiogenic shock - GI consulted, appreciate input. - Viral studies, including Parvovirus, EBV, CMV, Hepatitis, HSV, are pending. - Monitor LFTs qAM -- continue to trend up. - HF treatment as noted below. (11) Acute systolic (congestive) heart failure: - Echo on admission showed EF 20-25%, severe global hypokinesis to akinesis sparing only the base to mid lateral wall --> Could be ischemic in nature given that she presented with N/V a few days prior to admission (ACS event?) - Chest CT with bilateral pleural effusions. - Monitor net I/O's and daily weights. - No improvement with Lasix drip; will start HD today. - Holding home ACEI in setting of ARF; added Coreg 3.125 mg BID. - Cardiology following, appreciate input. - Lyme titer was negative. (12) Left bundle branch block: - First noted on EKG in October 2018; cardiac work up as noted above. - Will need an ischemic evaluation at some point in the near future (13) Cardiomyopathy: - Concern for viral vs. ischemic -- Lyme titer negative; other viral studies pending. - Echo showed global severe hypokinesis to akinesis sparing only the base to mid lateral wall. (14) Aortic stenosis: - Mild, noted on TTE. (15) Prolonged INR: - INR is prolonged in setting of liver dysfunction. - Continue to monitor --INR is trending up. Fibrinogen level also decreased. (16) Polymyalgia rheumatica: - Continue home meds -- including Prednisone 5 mg daily. (17) GERD (gastroesophageal reflux disease): - Zantac and PPI. (18) Depression: - Continue Effexor as prescribed. (19) Dyslipidemia: - Continue Aspirin daily and Simvastatin as prescribed. (20) Hypothyroid: - TSH is 1.39. - Continue Levothyroxine 50 mcg daily as prescribed. (21) HTN (hypertension): - Holding home Lisinopril in setting of ARF. - Added Coreg 3.125 mg BID in setting of SVT. (22) Anxiety: - Effexor. (23) Open-angle glaucoma: - Continue home eye drops. (24) Hyponatremia: - Na level decreased. - In setting of renal failure. (25) DVT prophylaxis: - SCDs; holding pharmacologic ppx as INR is already significantly elevated from liver failure. Dispo: Upgraded to ICU for initiation of HD with close monitoring. Pt. was converted to DNR/DNI on 03/01 following discussion with virtual customer assistant. Pt. was converted to comfort measures this afternoon following discussion with the patient's daughter Latonya -- will be transferred to med/surg. Discontinued all unnecessary interventions and ordered IV Morphine/Ativan prn. Supervising Physician Co-Signing Physician Notes PA Supervision Note: I did not personally see or examine the patient today, but I verified all mcgarry points of GILDARDO Corley's assessment and plan with the following exceptions/additions: None Subjective Pt. was lethargic today, could not obtain review of systems. She opened her eyes to verbal stimuli. Pt. will be upgraded to ICU for initiation of dialysis with close monitoring. Pt. was not hemodynamically stable for HD this afternoon following upgrade to ICU. After further discussion with her daughter, will transfer to med/surg and initiate comfort measures. Review of Systems Review of Systems: Unobtainable due to cognitive status Physical Exam Physical Exam: General: Lethargic HEENT: NC/AT; PERRLA with EOMI; [place] conjunctiva, MMM. No erythema of posterior pharynx Neck: Supple and nontender Cardiac: RRR, systolic murmur Lungs: On 2L via NC; CTA throughout Abdomen: Bowel normoactive X 4; Nontender to palpation Extremities: Warm. No edema noted. Neuro: No focal weakness; does not answer questions, lethargic. Skin: Blue-purple discoloration of bilat LE. Results & Data Vital Signs (Past 12 Hours) Vital Signs Temp Pulse Pulse Pulse Resp BP BP 03/02/19 11:00 89 10 L 105/70 03/02/19 10:02 36.9 C 90 17 123/94 03/02/19 08:00 84 03/02/19 07:34 36.7 C 88 12 114/83 03/02/19 03:42 92 H 18 110/69 03/02/19 00:27 36.8 C 92 H 21 127/95 Pulse Ox 03/02/19 11:00 99 03/02/19 10:02 99 03/02/19 08:00 03/02/19 07:34 100 03/02/19 03:42 100 03/02/19 00:27 98 Laboratory Results 03/02/19 03/02/19 03/02/19 Range/Units 11:17 10:51 08:20 WBC (4.8-10.8) K/uL RBC (4.2-5.4) M/uL Hgb (12.0-16.0) g/dL Hct (37-47) % MCV (80-100) fL MCH (25-34) pg MCHC (32-36) g/dL RDW Std Deviation (36.4-46.3) fL RDW Coeff of Moi (11.5-14.5) % Plt Count (130-400) K/uL MPV (7.4-10.4) fL Absolute Nucleated RBC (0-0) K/uL Nucleated RBC % (auto) % Platelet Estimate (Normal) PT (9.0-12.0) Seconds INR (0.9-1.1) Fibrinogen 124 L (184-400) mg/dl Sodium (136-145) mmol/L Potassium (3.5-5.1) mmol/L Chloride (98-107) mmol/L Carbon Dioxide (21-32) mmol/L Anion Gap (3-11) BUN (7-18) mg/dl Creatinine (0.6-1.2) mg/dl Est Cr Clr Drug Dosing ml/min Est GFR ( Amer) Est GFR (Non-Af Amer) BUN/Creatinine Ratio (10-20) Glucose (70-99) mg/dl POC Glucose 117 H (70-99) Lactate (0.4-2.0) mmol/L Calcium (8.5-10.1) mg/dl Magnesium (1.8-2.4) mg/dl Total Bilirubin (0.2-1) mg/dl AST (15-37) U/L ALT (12-78) U/L Alkaline Phosphatase (45-117) U/L Troponin I (0-0.045) ng/ml Total Protein (6.4-8.2) gm/dl Albumin (3.4-5.0) gm/dl Globulin (2.5-4.0) gm/dl Albumin/Globulin Ratio (0.9-2) Lyme Disease IgG Ab (Negative) Lyme Disease IgM Ab (Negative) CMV IgM Ab EBV Capsid Ag IgG Ab EBV Capsid Ag IgM Ab EBV EA Restrict+Diffuse EBV Nuclear Antigen Ab Hepatitis A IgM Ab Hep Bs Antigen Pending (Neg) Hep Bs Antibody Non-Immune Hep Bs Antibody, Quant < 3.10 L (>or=10mIU/mL Immune) mIU/mL Hep B Core IgM Ab Hepatitis C Antibody (Neg) HSV I IgM Ab (IFA) HSV II IgM Ab (IFA) Parvovirus IgG Ab Index Parvovirus IgM Ab Index 03/02/19 03/02/19 03/02/19 Range/Units 07:33 05:46 05:46 WBC (4.8-10.8) K/uL RBC (4.2-5.4) M/uL Hgb (12.0-16.0) g/dL Hct (37-47) % MCV (80-100) fL MCH (25-34) pg MCHC (32-36) g/dL RDW Std Deviation (36.4-46.3) fL RDW Coeff of Moi (11.5-14.5) % Plt Count (130-400) K/uL MPV (7.4-10.4) fL Absolute Nucleated RBC (0-0) K/uL Nucleated RBC % (auto) % Platelet Estimate (Normal) PT 30.8 H (9.0-12.0) Seconds INR 3.3 H (0.9-1.1) Fibrinogen (184-400) mg/dl Sodium 134 L (136-145) mmol/L Potassium 5.3 H (3.5-5.1) mmol/L Chloride 98 (98-107) mmol/L Carbon Dioxide 19 L (21-32) mmol/L Anion Gap 17.0 H (3-11) BUN 82 H (7-18) mg/dl Creatinine 3.50 H (0.6-1.2) mg/dl Est Cr Clr Drug Dosing 11.4 ml/min Est GFR ( Amer) 13.9 Est GFR (Non-Af Amer) 12.0 BUN/Creatinine Ratio 23.3 H (10-20) Glucose 125 H (70-99) mg/dl POC Glucose 131 H (70-99) Lactate (0.4-2.0) mmol/L Calcium 6.9 L (8.5-10.1) mg/dl Magnesium 2.0 (1.8-2.4) mg/dl Total Bilirubin 2.5 H (0.2-1) mg/dl AST 2616 H (15-37) U/L ALT 2822 H (12-78) U/L Alkaline Phosphatase 120 H (45-117) U/L Troponin I (0-0.045) ng/ml Total Protein 5.7 L (6.4-8.2) gm/dl Albumin 2.8 L (3.4-5.0) gm/dl Globulin 2.9 (2.5-4.0) gm/dl Albumin/Globulin Ratio 1.0 (0.9-2) Lyme Disease IgG Ab (Negative) Lyme Disease IgM Ab (Negative) CMV IgM Ab EBV Capsid Ag IgG Ab EBV Capsid Ag IgM Ab EBV EA Restrict+Diffuse EBV Nuclear Antigen Ab Hepatitis A IgM Ab Hep Bs Antigen (Neg) Hep Bs Antibody Hep Bs Antibody, Quant (>or=10mIU/mL Immune) mIU/mL Hep B Core IgM Ab Hepatitis C Antibody (Neg) HSV I IgM Ab (IFA) HSV II IgM Ab (IFA) Parvovirus IgG Ab Index Parvovirus IgM Ab Index 03/02/19 03/01/19 03/01/19 Range/Units 05:46 20:35 20:12 WBC 10.22 (4.8-10.8) K/uL RBC 4.52 (4.2-5.4) M/uL Hgb 13.4 (12.0-16.0) g/dL Hct 38.4 (37-47) % MCV 85.0 (80-100) fL MCH 29.6 (25-34) pg MCHC 34.9 (32-36) g/dL RDW Std Deviation 48.5 H (36.4-46.3) fL RDW Coeff of Moi 15.9 H (11.5-14.5) % Plt Count 95 L (130-400) K/uL MPV 11.5 H (7.4-10.4) fL Absolute Nucleated RBC 0.21 H (0-0) K/uL Nucleated RBC % (auto) 2.1 % Platelet Estimate Decreased L (Normal) PT (9.0-12.0) Seconds INR (0.9-1.1) Fibrinogen (184-400) mg/dl Sodium 134 L (136-145) mmol/L Potassium 5.8 H (3.5-5.1) mmol/L Chloride 98 (98-107) mmol/L Carbon Dioxide 20 L (21-32) mmol/L Anion Gap 16.0 H (3-11) BUN 79 H (7-18) mg/dl Creatinine 3.34 H (0.6-1.2) mg/dl Est Cr Clr Drug Dosing 12.0 ml/min Est GFR ( Amer) 14.7 Est GFR (Non-Af Amer) 12.7 BUN/Creatinine Ratio 23.7 H (10-20) Glucose 128 H (70-99) mg/dl POC Glucose 119 H (70-99) Lactate (0.4-2.0) mmol/L Calcium 7.4 L (8.5-10.1) mg/dl Magnesium (1.8-2.4) mg/dl Total Bilirubin (0.2-1) mg/dl AST (15-37) U/L ALT (12-78) U/L Alkaline Phosphatase (45-117) U/L Troponin I (0-0.045) ng/ml Total Protein (6.4-8.2) gm/dl Albumin (3.4-5.0) gm/dl Globulin (2.5-4.0) gm/dl Albumin/Globulin Ratio (0.9-2) Lyme Disease IgG Ab (Negative) Lyme Disease IgM Ab (Negative) CMV IgM Ab EBV Capsid Ag IgG Ab EBV Capsid Ag IgM Ab EBV EA Restrict+Diffuse EBV Nuclear Antigen Ab Hepatitis A IgM Ab Hep Bs Antigen (Neg) Hep Bs Antibody Hep Bs Antibody, Quant (>or=10mIU/mL Immune) mIU/mL Hep B Core IgM Ab Hepatitis C Antibody (Neg) HSV I IgM Ab (IFA) HSV II IgM Ab (IFA) Parvovirus IgG Ab Index Parvovirus IgM Ab Index 03/01/19 03/01/19 03/01/19 Range/Units 18:42 16:16 13:36 WBC (4.8-10.8) K/uL RBC (4.2-5.4) M/uL Hgb (12.0-16.0) g/dL Hct (37-47) % MCV (80-100) fL MCH (25-34) pg MCHC (32-36) g/dL RDW Std Deviation (36.4-46.3) fL RDW Coeff of Moi (11.5-14.5) % Plt Count (130-400) K/uL MPV (7.4-10.4) fL Absolute Nucleated RBC (0-0) K/uL Nucleated RBC % (auto) % Platelet Estimate (Normal) PT (9.0-12.0) Seconds INR (0.9-1.1) Fibrinogen (184-400) mg/dl Sodium (136-145) mmol/L Potassium (3.5-5.1) mmol/L Chloride (98-107) mmol/L Carbon Dioxide (21-32) mmol/L Anion Gap (3-11) BUN (7-18) mg/dl Creatinine (0.6-1.2) mg/dl Est Cr Clr Drug Dosing ml/min Est GFR ( Amer) Est GFR (Non-Af Amer) BUN/Creatinine Ratio (10-20) Glucose (70-99) mg/dl POC Glucose 120 H (70-99) Lactate 3.4 H* (0.4-2.0) mmol/L Calcium (8.5-10.1) mg/dl Magnesium (1.8-2.4) mg/dl Total Bilirubin (0.2-1) mg/dl AST (15-37) U/L ALT (12-78) U/L Alkaline Phosphatase (45-117) U/L Troponin I (0-0.045) ng/ml Total Protein (6.4-8.2) gm/dl Albumin (3.4-5.0) gm/dl Globulin (2.5-4.0) gm/dl Albumin/Globulin Ratio (0.9-2) Lyme Disease IgG Ab (Negative) Lyme Disease IgM Ab (Negative) CMV IgM Ab EBV Capsid Ag IgG Ab Pending EBV Capsid Ag IgM Ab Pending EBV EA Restrict+Diffuse Pending EBV Nuclear Antigen Ab Pending Hepatitis A IgM Ab Hep Bs Antigen (Neg) Hep Bs Antibody Hep Bs Antibody, Quant (>or=10mIU/mL Immune) mIU/mL Hep B Core IgM Ab Hepatitis C Antibody (Neg) HSV I IgM Ab (IFA) HSV II IgM Ab (IFA) Parvovirus IgG Ab Index Parvovirus IgM Ab Index 03/01/19 03/01/19 03/01/19 Range/Units 13:36 13:36 13:36 WBC (4.8-10.8) K/uL RBC (4.2-5.4) M/uL Hgb (12.0-16.0) g/dL Hct (37-47) % MCV (80-100) fL MCH (25-34) pg MCHC (32-36) g/dL RDW Std Deviation (36.4-46.3) fL RDW Coeff of Moi (11.5-14.5) % Plt Count (130-400) K/uL MPV (7.4-10.4) fL Absolute Nucleated RBC (0-0) K/uL Nucleated RBC % (auto) % Platelet Estimate (Normal) PT (9.0-12.0) Seconds INR (0.9-1.1) Fibrinogen (184-400) mg/dl Sodium (136-145) mmol/L Potassium (3.5-5.1) mmol/L Chloride (98-107) mmol/L Carbon Dioxide (21-32) mmol/L Anion Gap (3-11) BUN (7-18) mg/dl Creatinine (0.6-1.2) mg/dl Est Cr Clr Drug Dosing ml/min Est GFR ( Amer) Est GFR (Non-Af Amer) BUN/Creatinine Ratio (10-20) Glucose (70-99) mg/dl POC Glucose (70-99) Lactate (0.4-2.0) mmol/L Calcium (8.5-10.1) mg/dl Magnesium (1.8-2.4) mg/dl Total Bilirubin (0.2-1) mg/dl AST (15-37) U/L ALT (12-78) U/L Alkaline Phosphatase (45-117) U/L Troponin I (0-0.045) ng/ml Total Protein (6.4-8.2) gm/dl Albumin (3.4-5.0) gm/dl Globulin (2.5-4.0) gm/dl Albumin/Globulin Ratio (0.9-2) Lyme Disease IgG Ab (Negative) Lyme Disease IgM Ab (Negative) CMV IgM Ab Pending EBV Capsid Ag IgG Ab EBV Capsid Ag IgM Ab EBV EA Restrict+Diffuse EBV Nuclear Antigen Ab Hepatitis A IgM Ab Pending Hep Bs Antigen Neg (Neg) Hep Bs Antibody Hep Bs Antibody, Quant (>or=10mIU/mL Immune) mIU/mL Hep B Core IgM Ab Pending Hepatitis C Antibody Neg (Neg) HSV I IgM Ab (IFA) Pending HSV II IgM Ab (IFA) Pending Parvovirus IgG Ab Index Pending Parvovirus IgM Ab Index Pending 03/01/19 03/01/19 03/01/19 Range/Units 12:47 12:47 12:47 WBC (4.8-10.8) K/uL RBC (4.2-5.4) M/uL Hgb (12.0-16.0) g/dL Hct (37-47) % MCV (80-100) fL MCH (25-34) pg MCHC (32-36) g/dL RDW Std Deviation (36.4-46.3) fL RDW Coeff of Moi (11.5-14.5) % Plt Count (130-400) K/uL MPV (7.4-10.4) fL Absolute Nucleated RBC (0-0) K/uL Nucleated RBC % (auto) % Platelet Estimate (Normal) PT 27.2 H (9.0-12.0) Seconds INR 2.9 H (0.9-1.1) Fibrinogen (184-400) mg/dl Sodium (136-145) mmol/L Potassium (3.5-5.1) mmol/L Chloride (98-107) mmol/L Carbon Dioxide (21-32) mmol/L Anion Gap (3-11) BUN (7-18) mg/dl Creatinine (0.6-1.2) mg/dl Est Cr Clr Drug Dosing ml/min Est GFR ( Amer) Est GFR (Non-Af Amer) BUN/Creatinine Ratio (10-20) Glucose (70-99) mg/dl POC Glucose (70-99) Lactate 3.1 H* (0.4-2.0) mmol/L Calcium (8.5-10.1) mg/dl Magnesium (1.8-2.4) mg/dl Total Bilirubin (0.2-1) mg/dl AST (15-37) U/L ALT (12-78) U/L Alkaline Phosphatase (45-117) U/L Troponin I (0-0.045) ng/ml Total Protein (6.4-8.2) gm/dl Albumin (3.4-5.0) gm/dl Globulin (2.5-4.0) gm/dl Albumin/Globulin Ratio (0.9-2) Lyme Disease IgG Ab Negative (Negative) Lyme Disease IgM Ab Negative (Negative) CMV IgM Ab EBV Capsid Ag IgG Ab EBV Capsid Ag IgM Ab EBV EA Restrict+Diffuse EBV Nuclear Antigen Ab Hepatitis A IgM Ab Hep Bs Antigen (Neg) Hep Bs Antibody Hep Bs Antibody, Quant (>or=10mIU/mL Immune) mIU/mL Hep B Core IgM Ab Hepatitis C Antibody (Neg) HSV I IgM Ab (IFA) HSV II IgM Ab (IFA) Parvovirus IgG Ab Index Parvovirus IgM Ab Index 03/01/19 Range/Units 12:47 WBC (4.8-10.8) K/uL RBC (4.2-5.4) M/uL Hgb (12.0-16.0) g/dL Hct (37-47) % MCV (80-100) fL MCH (25-34) pg MCHC (32-36) g/dL RDW Std Deviation (36.4-46.3) fL RDW Coeff of Moi (11.5-14.5) % Plt Count (130-400) K/uL MPV (7.4-10.4) fL Absolute Nucleated RBC (0-0) K/uL Nucleated RBC % (auto) % Platelet Estimate (Normal) PT (9.0-12.0) Seconds INR (0.9-1.1) Fibrinogen (184-400) mg/dl Sodium 132 L (136-145) mmol/L Potassium 5.6 H (3.5-5.1) mmol/L Chloride 99 (98-107) mmol/L Carbon Dioxide 17 L (21-32) mmol/L Anion Gap 15.0 H (3-11) BUN 76 H (7-18) mg/dl Creatinine 3.12 H (0.6-1.2) mg/dl Est Cr Clr Drug Dosing 12.8 ml/min Est GFR ( Amer) 16.0 Est GFR (Non-Af Amer) 13.8 BUN/Creatinine Ratio 24.4 H (10-20) Glucose 132 H (70-99) mg/dl POC Glucose (70-99) Lactate (0.4-2.0) mmol/L Calcium 7.5 L (8.5-10.1) mg/dl Magnesium (1.8-2.4) mg/dl Total Bilirubin 2.0 H (0.2-1) mg/dl AST 2352 H (15-37) U/L ALT 2700 H (12-78) U/L Alkaline Phosphatase 124 H (45-117) U/L Troponin I 0.642 H* (0-0.045) ng/ml Total Protein 6.1 L (6.4-8.2) gm/dl Albumin 3.0 L (3.4-5.0) gm/dl Globulin 3.1 (2.5-4.0) gm/dl Albumin/Globulin Ratio 1.0 (0.9-2) Lyme Disease IgG Ab (Negative) Lyme Disease IgM Ab (Negative) CMV IgM Ab EBV Capsid Ag IgG Ab EBV Capsid Ag IgM Ab EBV EA Restrict+Diffuse EBV Nuclear Antigen Ab Hepatitis A IgM Ab Hep Bs Antigen (Neg) Hep Bs Antibody Hep Bs Antibody, Quant (>or=10mIU/mL Immune) mIU/mL Hep B Core IgM Ab Hepatitis C Antibody (Neg) HSV I IgM Ab (IFA) HSV II IgM Ab (IFA) Parvovirus IgG Ab Index Parvovirus IgM Ab Index PG Care Time/CCT Total # of Minutes Spent Total Time Spent with Patient: Total time spent is greater than 50% in coordination of care (as documented) at patient's floor/unit and/or counseling patient: (1) Sepsis Sepsis type: sepsis due to unspecified organism Qualified Code(s): A41.9 - Sepsis, unspecified organism
[2019-03-02] MEDS ORDERED: PHYTONADIONE 5 MG in SODIUM CHLORIDE 0.9% 50 ML IV STA (12:34)
[2019-03-02 14:51] LABS: INR 3.4 (0.9-1.1); Prothrombin Time 32.1 Seconds (9.0-12.0)
[2019-03-02 14:54] LABS: BUN Creatinine Ratio 23.9 (10-20); Calcium 6.8 mg/dl (8.5-10.1); Creatinine Clr Calc Pharmacy 11.2 ml/min; Est GFR (African American) 13.6; Est GFR (Non-African American) 11.7; Magnesium 1.9 mg/dl (1.8-2.4); Potassium 5.1 mmol/L (3.5-5.1)
[2019-03-02 15:01] LABS: Phosphorus 7.3 mg/dl (2.5-4.9); Troponin I 0.687 ng/ml (0-0.045)
--- NOTE | 2019-03-02 15:19 | Critical Care Progress Note ---
Date of Service March 02, 2019 Physical Exam Constitutional: + ill appearing Musculoskeletal: Head/Neck/Chest: normocephalic and head atraumatic Results & Data Vital Signs (Past 12 Hours) Vital Signs Temp Pulse Pulse Pulse Resp BP BP 03/02/19 11:00 89 10 L 105/70 03/02/19 10:02 36.9 C 90 17 123/94 03/02/19 08:00 84 03/02/19 07:34 36.7 C 88 12 114/83 03/02/19 03:42 92 H 18 110/69 Pulse Ox 03/02/19 11:00 99 03/02/19 10:02 99 03/02/19 08:00 03/02/19 07:34 100 03/02/19 03:42 100 PG Care Time/CCT Total # of Minutes Spent Total Time Spent with Patient: Total time spent is greater than 50% in coordination of care (as documented) at patient's floor/unit and/or counseling patient:
[2019-03-02] MEDS ORDERED: LORazepam 0.5 MG/1 ML VIAL IV PRN (16:40)
[2019-03-02] MEDS ORDERED: MoRPHine SULFATE 2 MG/ML CARP IV PRN (16:40)
[2019-03-02] MEDS ORDERED: ATROPINE SULFATE 1% OP SOLN 2 ML BTL OP PRN (16:40)
--- NOTE | 2019-03-02 20:08 | Critical Care Progress Note ---
Date of Service March 02, 2019 Assessment & Plan (1) Acute occlusion of artery of lower extremity: Reason Critically Ill: Multisystem organ failure with new onset of acute bilateral lower extremity arterial occlusion PLAN: Neuro: Analgesia -Morphine as needed and end-of-life/comfort measures Resp: Tachypnea -Morphine for air hunger CV: Cardiomyopathy EKG abnormality SVT Non-ST elevation myocardial infarction -Patient had significantly reduced EF which I believe places her at risk for intraventricular thrombus Fluids/Renal: Acute kidney injury -Consideration given to undergo dialysis -Patient's blood pressure is borderline and I do not believe she would tolerate transition onto the dialysis circuit ID: Sepsis GI/Nutrition: Transaminitis -Likely secondary to shock liver versus cardiac hepatic congestion Heme: Supratherapeutic INR -Not on anticoagulants Code Status: DO NOT RESUSCITATE in event of cardiac arrest Patient has waxing waning mental status and does not appear to have capacity to make end-of-life medical decisions. I am deferring to the patient's daughter at the bedside. I had an extensive discussion with the patient's daughter and given the multiple comorbidities and worsening of her general medical conditions, especially in the setting of what appears to be a acute bilateral arterial thrombus the patient is in end-stage terminal condition without meaningful chance of recovery. I do not believe the patient would tolerate dialysis at this time as her blood pressure is borderline this would not resolve any acute arterial thrombus we still have significant hepatic dysfunction and very significant cardiac dysfunction. The patient's daughter believes it is in her mother's best interest to proceed with comfort measures only and stop active treatment. Patient will be transferred to the regular nursing floor and comfort measures initiated. I have personally spent 35 minutes of critical care time in the direct management of this patient. This is a life/limb threatening event. This includes time spent evaluating patient, direct bedside care, chart review, placing orders, interpretation of diagnostic studies, discussion with consultants, patient, and/or family members regarding treatment decisions, as well as other required patient management activities. This time is exclusive of all separately billable procedures, and teaching time and separate from and in addition to any other critical care service time. Present on Admission?: No (2) Paroxysmal SVT (supraventricular tachycardia): Present on Admission?: No Subjective Patient complains of significant lower extremity pain. Review of Systems Review of Systems: Unobtainable due to reduced consciousness Physical Exam Physical Exam: General: Intermittent confusion. nontoxic. Skin: Cool, significant mottling of bilateral lower extremities with no palpable pulses Head: Atraumatic Ears, nose, mouth and throat: airway patent Cardiovascular: Decreased peripheral perfusion of the bilateral lower extremities from the calf's distally Respiratory: Tachypnea Gastrointestinal: Non distended Musculoskeletal: No deformity Results & Data Vital Signs (Past 12 Hours) Vital Signs Temp Pulse Resp BP Pulse Ox 03/02/19 15:00 82 9 L 105/71 96 03/02/19 14:00 87 13 106/89 100 03/02/19 13:00 87 10 L 108/58 L 100 03/02/19 12:00 36.6 C 87 10 L 120/77 99 03/02/19 11:00 89 10 L 105/70 99 03/02/19 10:02 36.9 C 90 17 123/94 99 Laboratory Results 03/02/19 03/02/19 03/02/19 Range/Units 14:25 14:25 11:17 WBC (4.8-10.8) K/uL RBC (4.2-5.4) M/uL Hgb (12.0-16.0) g/dL Hct (37-47) % MCV (80-100) fL MCH (25-34) pg MCHC (32-36) g/dL RDW Std Deviation (36.4-46.3) fL RDW Coeff of Moi (11.5-14.5) % Plt Count (130-400) K/uL MPV (7.4-10.4) fL Absolute Nucleated RBC (0-0) K/uL Nucleated RBC % (auto) % Platelet Estimate (Normal) PT 32.1 H (9.0-12.0) Seconds INR 3.4 H (0.9-1.1) Fibrinogen (184-400) mg/dl Sodium 134 L (136-145) mmol/L Potassium 5.1 (3.5-5.1) mmol/L Chloride 99 (98-107) mmol/L Carbon Dioxide 19 L (21-32) mmol/L Anion Gap 16.0 H (3-11) BUN 86 H (7-18) mg/dl Creatinine 3.58 H (0.6-1.2) mg/dl Est Cr Clr Drug Dosing 11.2 ml/min Est GFR ( Amer) 13.6 Est GFR (Non-Af Amer) 11.7 BUN/Creatinine Ratio 23.9 H (10-20) Glucose 134 H (70-99) mg/dl POC Glucose (70-99) Calcium 6.8 L (8.5-10.1) mg/dl Phosphorus 7.3 H (2.5-4.9) mg/dl Magnesium 1.9 (1.8-2.4) mg/dl Total Bilirubin (0.2-1) mg/dl AST (15-37) U/L ALT (12-78) U/L Alkaline Phosphatase (45-117) U/L Troponin I 0.687 H* (0-0.045) ng/ml Total Protein (6.4-8.2) gm/dl Albumin (3.4-5.0) gm/dl Globulin (2.5-4.0) gm/dl Albumin/Globulin Ratio (0.9-2) Hep Bs Antigen Neg (Neg) Hep Bs Antibody Non-Immune Hep Bs Antibody, Quant < 3.10 L (>or=10mIU/mL Immune) mIU/mL 03/02/19 03/02/19 03/02/19 Range/Units 10:51 08:20 07:33 WBC (4.8-10.8) K/uL RBC (4.2-5.4) M/uL Hgb (12.0-16.0) g/dL Hct (37-47) % MCV (80-100) fL MCH (25-34) pg MCHC (32-36) g/dL RDW Std Deviation (36.4-46.3) fL RDW Coeff of Moi (11.5-14.5) % Plt Count (130-400) K/uL MPV (7.4-10.4) fL Absolute Nucleated RBC (0-0) K/uL Nucleated RBC % (auto) % Platelet Estimate (Normal) PT (9.0-12.0) Seconds INR (0.9-1.1) Fibrinogen 124 L (184-400) mg/dl Sodium (136-145) mmol/L Potassium (3.5-5.1) mmol/L Chloride (98-107) mmol/L Carbon Dioxide (21-32) mmol/L Anion Gap (3-11) BUN (7-18) mg/dl Creatinine (0.6-1.2) mg/dl Est Cr Clr Drug Dosing ml/min Est GFR ( Amer) Est GFR (Non-Af Amer) BUN/Creatinine Ratio (10-20) Glucose (70-99) mg/dl POC Glucose 117 H 131 H (70-99) Calcium (8.5-10.1) mg/dl Phosphorus (2.5-4.9) mg/dl Magnesium (1.8-2.4) mg/dl Total Bilirubin (0.2-1) mg/dl AST (15-37) U/L ALT (12-78) U/L Alkaline Phosphatase (45-117) U/L Troponin I (0-0.045) ng/ml Total Protein (6.4-8.2) gm/dl Albumin (3.4-5.0) gm/dl Globulin (2.5-4.0) gm/dl Albumin/Globulin Ratio (0.9-2) Hep Bs Antigen (Neg) Hep Bs Antibody Hep Bs Antibody, Quant (>or=10mIU/mL Immune) mIU/mL 03/02/19 03/02/19 03/02/19 Range/Units 05:46 05:46 05:46 WBC 10.22 (4.8-10.8) K/uL RBC 4.52 (4.2-5.4) M/uL Hgb 13.4 (12.0-16.0) g/dL Hct 38.4 (37-47) % MCV 85.0 (80-100) fL MCH 29.6 (25-34) pg MCHC 34.9 (32-36) g/dL RDW Std Deviation 48.5 H (36.4-46.3) fL RDW Coeff of Moi 15.9 H (11.5-14.5) % Plt Count 95 L (130-400) K/uL MPV 11.5 H (7.4-10.4) fL Absolute Nucleated RBC 0.21 H (0-0) K/uL Nucleated RBC % (auto) 2.1 % Platelet Estimate Decreased L (Normal) PT 30.8 H (9.0-12.0) Seconds INR 3.3 H (0.9-1.1) Fibrinogen (184-400) mg/dl Sodium 134 L (136-145) mmol/L Potassium 5.3 H (3.5-5.1) mmol/L Chloride 98 (98-107) mmol/L Carbon Dioxide 19 L (21-32) mmol/L Anion Gap 17.0 H (3-11) BUN 82 H (7-18) mg/dl Creatinine 3.50 H (0.6-1.2) mg/dl Est Cr Clr Drug Dosing 11.4 ml/min Est GFR ( Amer) 13.9 Est GFR (Non-Af Amer) 12.0 BUN/Creatinine Ratio 23.3 H (10-20) Glucose 125 H (70-99) mg/dl POC Glucose (70-99) Calcium 6.9 L (8.5-10.1) mg/dl Phosphorus (2.5-4.9) mg/dl Magnesium 2.0 (1.8-2.4) mg/dl Total Bilirubin 2.5 H (0.2-1) mg/dl AST 2616 H (15-37) U/L ALT 2822 H (12-78) U/L Alkaline Phosphatase 120 H (45-117) U/L Troponin I (0-0.045) ng/ml Total Protein 5.7 L (6.4-8.2) gm/dl Albumin 2.8 L (3.4-5.0) gm/dl Globulin 2.9 (2.5-4.0) gm/dl Albumin/Globulin Ratio 1.0 (0.9-2) Hep Bs Antigen (Neg) Hep Bs Antibody Hep Bs Antibody, Quant (>or=10mIU/mL Immune) mIU/mL 03/01/19 03/01/19 Range/Units 20:35 20:12 WBC (4.8-10.8) K/uL RBC (4.2-5.4) M/uL Hgb (12.0-16.0) g/dL Hct (37-47) % MCV (80-100) fL MCH (25-34) pg MCHC (32-36) g/dL RDW Std Deviation (36.4-46.3) fL RDW Coeff of Moi (11.5-14.5) % Plt Count (130-400) K/uL MPV (7.4-10.4) fL Absolute Nucleated RBC (0-0) K/uL Nucleated RBC % (auto) % Platelet Estimate (Normal) PT (9.0-12.0) Seconds INR (0.9-1.1) Fibrinogen (184-400) mg/dl Sodium 134 L (136-145) mmol/L Potassium 5.8 H (3.5-5.1) mmol/L Chloride 98 (98-107) mmol/L Carbon Dioxide 20 L (21-32) mmol/L Anion Gap 16.0 H (3-11) BUN 79 H (7-18) mg/dl Creatinine 3.34 H (0.6-1.2) mg/dl Est Cr Clr Drug Dosing 12.0 ml/min Est GFR ( Amer) 14.7 Est GFR (Non-Af Amer) 12.7 BUN/Creatinine Ratio 23.7 H (10-20) Glucose 128 H (70-99) mg/dl POC Glucose 119 H (70-99) Calcium 7.4 L (8.5-10.1) mg/dl Phosphorus (2.5-4.9) mg/dl Magnesium (1.8-2.4) mg/dl Total Bilirubin (0.2-1) mg/dl AST (15-37) U/L ALT (12-78) U/L Alkaline Phosphatase (45-117) U/L Troponin I (0-0.045) ng/ml Total Protein (6.4-8.2) gm/dl Albumin (3.4-5.0) gm/dl Globulin (2.5-4.0) gm/dl Albumin/Globulin Ratio (0.9-2) Hep Bs Antigen (Neg) Hep Bs Antibody Hep Bs Antibody, Quant (>or=10mIU/mL Immune) mIU/mL PG Care Time/CCT Total # of Minutes Spent Total Time Spent with Patient: Total time spent is greater than 50% in co ordination of care (as documented) at patient's floor/unit and/or counseling patient: Critical Care Time: Yes Total Critical Care Time: 35
[2019-03-02] MEDS ORDERED: MoRPHine SULFATE 5 MG/0.25 ML UDP PO PRN (21:25)
[2019-03-02] MEDS: MoRPHine SULFATE 2 MG/ML CARP IV PRN (22:03)
[2019-03-03] MEDS: MoRPHine SULFATE 2 MG/ML CARP IV PRN ×4 (00:10→05:51)
[2019-03-03] MEDS: MoRPHine SULFATE 4 MG/ML 1 ML CARP\\VIAL IV PRN ×3 (07:50→13:03)
[2019-03-03] MEDS: LORazepam 1 MG/2 ML VIAL IV PRN ×4 (08:59→19:21)
[2019-03-03] MEDS: MoRPHine SULFATE 5 MG/0.25 ML UDP PO PRN ×2 (09:24→10:56)
--- NOTE | 2019-03-03 09:53 | Nephrology Progress Note ---
Date of Service March 03, 2019 Assessment & Plan (1) Acute kidney injury: -- Patient transitioned to comfort measures only -- She appears comfortable at this time -- Nephrology will sign-off -- Family updated (2) Acute systolic (congestive) heart failure: (3) Cardiomyopathy: (4) RLL pneumonia: (5) Hyperkalemia: (6) SVT (supraventricular tachycardia): (7) Elevated LFTs: (8) Elevated lactic acid level: (9) UTI (urinary tract infection): (10) Polymyalgia rheumatica: (11) Diabetes mellitus type 2 with complications: (12) Left bundle branch block: Subjective Clinical condition continued to decline yesterday. Rebecca's family elected to transition to comfort care. They have refused dialysis. Antibiotics and other treatment measures stopped. She was seen and evaluated this morning with family at the bedside. Rebecca was not able to provide history. Review of Systems Review of Systems: Unobtainable due to cognitive status Physical Exam Constitutional: + ill appearing and + frail appearing; no acute distress Eyes: no scleral abnormality and no corneal abnormality ENMT: Mouth: + dry oral mucous membranes; no oral mucosal abnormality Neck: normal visual inspection and trachea midline Respiratory: no respiratory distress Auscultation: lungs clear to auscultation bilaterally, + diminished lung sounds and + rales Cardiovascular: Heart Sounds: normal S1 and normal S2; no murmur Vessels: + JVD Extremities: no edema Gastrointestinal (Abdomen): Percussion/Palpation: abdomen soft; abdomen nontender Musculoskeletal: Extremities: + cyanosis; no clubbing Skin: no rashes Trauma: no evidence of skin trauma Neurologic: Motor/Sensory: no tremor and no asterixis Psychiatric: Orientation: + not oriented x 3 Judgement: + impaired oracle soa architect ment PG Care Time/CCT Total # of Minutes Spent Total Time Spent with Patient: Total time spent is greater than 50% in coordination of care (as documented) at patient's floor/unit and/or counseling patient: 20
--- NOTE | 2019-03-03 10:41 | Palliative Care Consultation ---
Date of Consultation March 03, 2019 Assessment & Plan (1) Comfort measures only status: -78 year old female patient with PMH CHF, CKD III, chronic back pain, moderate , hypothyroidism, HTN, HLD, hiatal hernia, presented to the hospital with c/o severe nausea/vomiting, no urination for several days. Patient had been to her PCP with cough and SOB. She was placed on azithromycin and apparently developed severe N/V and abdominal bloating. She didn't eat or drink well for several days and did not urinate for two days. Upon arrival to the hospital, patient was found to have a UTI, pulmonary edema, shock liver with INR 3. Patient was in renal failure with creatinine 2.75 which shashi to 3.58 in two days. Echocardiogram showed EF 20-25%, last echo had normal EF. There apparently were some EKG changes related to her hyperkalemia, but also positive troponin, so patient may have suffered a cardiac event as well. Patient was initially admitted to telemetry unit where she went into unstable SVT-- patient's mentation deteriorated and she was hypotensive. She was given several doses of adenosine. With worsening renal failure, patient was transferred to ICU and was being evaluated for a temporary dialysis catheter when it was noted that BL lower extremities were blue, cold, and without pulses. She was thought to have acute arterial thrombosis. Given patient's many comorbidities and multiple system organ failure, patient's family decided to transition to comfort measures only. Palliative care is now consulted to provide comfort and supportive care. -Met with patient, her sister, and another male family member in room 451. Patient is mostly obtunded but does randomly wince and facial grimace as though in pain. She becomes restless with pain, and even winces if her feet or legs are touched by the bed sheet. -Patient's sister stated that the family is only concerned about her comfort level. She has required several doses of IV morphine 4mg already this morning and it does not seem to be controlling her pain. We discussed starting a morphine infusion. Sister is a RN in the ED at another hospital and is familiar with comfort medications. -I called patient's daughter, Latonya, who makes decisions for patient. Latonya confirmed that the goal is strictly for comfort and for patient to pass away peacefully. We discussed starting a continuous morphine infusion, which she would like to be started. -Ordered morphine infusion to start at 2mg. Titrate by 1mg/hr Q15min PRN pain or SOB. -Atropine 1% oph soln 4 drops SL Q1h PRN secretions. -Scopolamine patch at family's request. -Lorazepam 1mg IV Q2h PRN anxiety/agitation. -Continue morphine boluses of 4mg IV Q1h PRN breakthrough pain or SOB. -All of the above was discussed with family and they are in agreement with plan. -Patient is expected to in next hours to days. (2) Acute occlusion of artery of lower extremity: (3) Acute kidney failure, unspecified: (4) Acute systolic (congestive) heart failure: (5) Non-ST elevation (NSTEMI) myocardial infarction: History of Present Illness Reason for Consultation: Comfort measures only Requesting Physician: Dr. Ba Attending Physician: Kayla Ba MD History of Present Illness This 78 year old female patient with PMH CHF, CKD III, chronic back pain, moderate , hypothyroidism, HTN, HLD, hiatal hernia, presented to the hospital with c/o severe nausea/vomiting, no urination for several days. Patient had been to her PCP with cough and SOB. She was placed on azithromycin and apparently developed severe N/V and abdominal bloating. She didn't eat or drink well for several days and did not urinate for two days. Upon arrival to the hospital, patient was found to have a UTI, pulmonary edema, shock liver with INR 3. Patient was in renal failure with creatinine 2.75 which shashi to 3.58 in two days. Echocardiogram showed EF 20-25%, last echo had normal EF. There apparently were some EKG changes related to her hyperkalemia, but also positive troponin, so patient may have suffered a cardiac event as well. Patient was initially admitted to telemetry unit where she went into unstable SVT-- patient's mentation deteriorated and she was hypotensive. She was given several doses of adenosine. With worsening renal failure, patient was transferred to ICU and was being evaluated for a temporary dialysis catheter when it was noted that BL lower extremities were blue, cold, and without pulses. She was thought to have acute arterial thrombosis. Given patient's many comorbidities and multiple system organ failure, patient's family decided to transition to comfort measures only. Palliative care is now consulted to provide comfort and supportive care. Thank you kindly for this consult. I will follow as needed. Allergies Allergy/AdvReac Type Severity Reaction Status Date / Time gabapentin Allergy Severe MOUTH Verified 02/28/19 17:22 MAGNO pregabalin Allergy Severe MOUTH Verified 02/28/19 17:22 MAGNO Home Medications Home Medications Medication Instructions Recorded Confirmed Type fluticasone propionate 1 spray INTRANASAL DAILY 10/15/18 02/28/19 History lisinopril [Zestril] 5 mg PO DAILY #1 tab 10/26/18 02/28/19 Rx phenazopyridine [Pyridium] 200 mg PO TID PRN #1 tab 10/26/18 02/28/19 Rx aspirin 81 mg tablet,delayed 81 mg PO DAILY 10/29/18 02/28/19 History release prednisone 5 mg tablet 5 mg PO DAILY #30 tab 01/14/19 02/28/19 Rx ranitidine 150 mg tablet 150 mg PO HS #30 tab 01/14/19 02/28/19 Rx latanoprost 0.005 % eye drops 1 drp OPHTHALMIC (EYE) PM #2.5 ml 01/21/19 02/28/19 Rx oxycodone 5 mg tablet 5 mg PO DAILY #7 tab 01/21/19 02/28/19 Rx oxycodone ER 30 mg tablet,crush 30 mg PO Q12H #60 tab 01/31/19 02/28/19 Rx resistant,extended release 12 hr pantoprazole 40 mg tablet,delayed 40 mg PO DAILY #90 tab 02/11/19 02/28/19 Rx release Voltaren 1 % topical gel 2 gm TOP QID #100 gm NS 02/22/19 02/28/19 Rx albuterol sulfate HFA 90 1 puffs INH Q4H PRN #18 gm 02/25/19 02/28/19 Rx mcg/actuation aerosol inhaler azithromycin 250 mg tablet See Rx Instructions PO .COMPLEX #6 02/25/19 02/28/19 Rx tab furosemide 20 mg tablet 20 mg PO QAM PRN #30 tab 02/25/19 02/28/19 Rx levothyroxine 50 mcg tablet 50 mcg PO DAILY #30 tab 02/25/19 02/28/19 Rx loratadine 10 mg tablet 10 mg PO DAILY #30 tab 02/25/19 02/28/19 Rx meclizine 25 mg tablet 25 mg PO TID PRN #30 tab 02/25/19 02/28/19 Rx simvastatin 20 mg tablet 20 mg PO HS #30 tab 02/25/19 02/28/19 Rx venlafaxine ER 150 mg 150 mg PO DAILY #30 cap 02/25/19 02/28/19 Rx capsule,extended release 24 hr Patient History Medical History Diabetic nephropathy History of TIA (transient ischemic attack) Open-angle glaucoma History of peptic ulcer Anxiety Polymyalgia rheumatica Chronic venous insufficiency Diabetes mellitus type 2 with complications Esophageal dyskinesia Vitamin D deficiency Anemia Aortic stenosis Chronic diastolic heart failure Left bundle branch block GERD (gastroesophageal reflux disease) Osteoarthritis Depression Dyslipidemia Hypothyroid CKD (chronic kidney disease), stage III Diabetic neuropathy HTN (hypertension) Rectocele Closed right hip fracture (Resolved) Hematoma of right lower extremity (Resolved) Allergic rhinitis Chronic back pain Diverticulosis Glaucoma Hiatal hernia Lumbar disc disease Lumbar spinal stenosis Ovarian mass TIA (transient ischemic attack) Urinary incontinence Uterine fibroid Vertigo Surgical History H/O rectocele repair H/O repair of rotator cuff H/O umbilical hernia repair History of bilateral knee replacement S/P evacuation of hematoma October 2018, R hip Family History Father Diabetes Hypertension Sister Diabetes Brother Diabetes Mother Hypertension Social History Preferred Language: Martiniquais Communication Ability: Effective Visual Impairment: No Limitations Hearing Ability: Normal Automatic Log Cut Off Sawyer Required: No Beliefs That Will Affect Care: None marital status: Current Living Situation: Spouse Current Living Situation Comment: Caregiver in AM, daughter at home from 899- 1999 current occupational status: retired Other Information That Helps Us Care for You: No Feels Safe at Home: Yes Safety Concerns: Feels Safe At This Time Smoking Status: Never smoker Tobacco Type: cigarettes Cigarettes Per Day: 3 Do You Dip or Chew Tobacco: No Second Hand Exposure: No Tobacco Cessation Education Requested by Patient: No Hx Alcohol Use: No Hx Substance Use: No Dental Care, Regularly: No Physical Activity Frequency: Does not Exercise Review of Systems Review of Systems: Unobtainable due to cognitive status Physical Exam Constitutional: + ill appearing ENMT: Mouth: + dry oral mucous membranes Neck: normal visual inspection Respiratory: Auscultation: + diminished lung sounds and + rhonchi Cardiovascular: Rate/Rhythm: regular rate and regular rhythm Extremities: no edema Musculoskeletal: Extremities: + cyanosis (BLE ) Neurologic: moves all extremities and + obtunded PG Care Time/CCT Total # of Minutes Spent Total Time Spent with Patient: Total time spent is greater than 50% in coordination of care (as documented) at patient's floor/unit and/or counseling patient: Time Spent Midlevel 70 minutes with >50% of the time spent at bedside with patient and family discussing comfort measures only and EOL issues.
--- NOTE | 2019-03-03 10:51 | Hospitalist Progress Note ---
Date of Service March 03, 2019 Assessment & Plan (1) Sepsis: - Presented with cough and SOB following recent diagnosis of acute bronchitis. - Tachycardic (SVT on 03/01 as noted below), elevated LFTs and shock liver, acute renal failure from ATN noted on admission, as well as new onset systolic CHF - evidence of multisystem organ failure. - CT of the chest does show infiltrates in the right middle and right lower lobes, however this could be ?asymmetric pulmonary edema. - UC also positive for Enterococcus; previously on IV Zosyn. 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 Roxanol as needed Patient now appears more comfortable on morphine (2) Elevated lactic acid level: - Lactic acid level elevated, 3.4. Could be secondary to worsening renal failure and liver failure. (3) High anion gap metabolic acidosis: - In setting of acute renal failure. - Nephrology following, decompensated and was no longer a candidate for dialysis No further labs to be drawn on comfort measures (4) Acute kidney injury: - Creatinine continued to trend upward with oliguria, hyperkalemia, AGMA. - Received Lasix drip with no improvement. Was not a candidate for dialysis after continued to decompensate as above -Continue Galeana catheter for comfort No further labs needed (5) Hyperkalemia: - In setting of ARF/metabolic acidosis. -As above (6) RLL pneumonia: - Chest CT with RML and RLL opacities concerning for infection. -Received antibiotics and now all discontinued on comfort measures (7) UTI (urinary tract infection): - UC positive for Enterococcus species, initially on antibiotics and now discontinued (8) Elevated troponin I level: - Trop peaked at 0.850; concern for recent cardiac event in setting of severely reduced EF compared to recent TTE and new wall motion abnormalities. - Type II [place] due to demand ischemia. - Cardiology consulted; no acute intervention was indicated due to decompensated state -Now on comfort measures (9) Paroxysmal SVT (supraventricular tachycardia): - SVT noted on 03/01/19 with heart rate in the 170s, hypotension and decreased mentation - received Adenosine with resolution. - Concern for episodes of SVT at home leading to hypotensive episodes --> ATN with ARF as a result. Now on comfort measures (10) Elevated LFTs: - LFTs were significantly elevated, as well as elevated INR, and decreased platelet count - related to septic shock vs. hepatic congestion from CHF and cardiogenic shock - GI consulted, appreciate input. - Viral studies, including Parvovirus, EBV, CMV, Hepatitis, HSV, were drawn No further monitoring Comfort measures only (11) Acute systolic (congestive) heart failure: - Echo on admission showed EF 20-25%, severe global hypokinesis to akinesis sparing only the base to mid lateral wall --> Could be ischemic in nature given that she presented with N/V a few days prior to admission (ACS event?) - Chest CT with bilateral pleural effusions. - No improvement with Lasix drip, not a candidate for dialysis as above Now on comfort measures (12) Left bundle branch block: - First noted on EKG in October 2018; cardiac work up as noted above. (13) Cardiomyopathy: - Concern for viral vs. ischemic, versus secondary to left bundle branch block - Echo showed global severe hypokinesis to akinesis sparing only the base to mid lateral wall. (14) Aortic stenosis: - Mild, noted on TTE. (15) Prolonged INR: - INR is prolonged in setting of liver dysfunction. (16) Polymyalgia rheumatica: No further prednisone on comfort measures (17) GERD (gastroesophageal reflux disease): Discontinued meds (18) Depression: Discontinued Effexor (19) Dyslipidemia: Discontinue meds (20) Hypothyroid: - TSH is 1.39. Discontinue levothyroxine (21) HTN (hypertension): Discontinued all meds (22) Anxiety: Ativan as needed (23) Open-angle glaucoma: (24) Hyponatremia: - Na level decreased. - In setting of renal failure. No further labs needed (25) DVT prophylaxis: No DVT prophylaxis indicated while on comfort measures only Dispo: Now on comfort measures, on morphine drip DNR/DNI Patient's care was discussed at length with her sister and nephew at the bedside today. Subjective Patient is very lethargic and unresponsive to verbal and gentle tactile stimulus today. She is grimacing with any touch especially in the lower extremities. I discussed her case at length with her sister who is a nurse at the bedside as w ell as her nephew. Due to significant discomfort despite receiving boluses of morphine, she will be started on a morphine drip. Continuing comfort measures only at this point Review of Systems Review of Systems: Unobtainable due to reduced consciousness Physical Exam Constitutional: + ill appearing, + frail appearing and + lethargic; no acute distress Neck: trachea midline, no thyromegaly Respiratory: no labored breathing Auscultation: + diminished lung sounds (At the bases); no crackles, no rhonchi and no wheezes Cardiovascular: RRR, no murmur, no edema Vessels: + dorsalis pedis pulses abnormal (With severe mottling and cyanosis of lower extremities from the thighs down) Gastrointestinal (Abdomen): Inspection/Auscultation: + hypoactive bowel sounds Percussion/Palpation: abdomen soft; abdomen nontender Musculoskeletal: Extremities: + cyanosis Neurologic: + obtunded Genitourinary: Galeana catheter in place draining some dark yellow urine PG Care Time/CCT Total # of Minutes Spent Total Time Spent with Patient: Total time spent is greater than 50% in coordination of care (as documented) at patient's floor/unit and/or counseling patient: (1) Sepsis Sepsis type: sepsis due to unspecified organism Qualified Code(s): A41.9 - Sepsis, unspecified organism
[2019-03-03] MEDS: MoRPHine SULF/NSS 100 MG/100 ML BAG IV PRN ×2 (11:05→17:17)
[2019-03-03] MEDS ORDERED: ATROPINE SULFATE 1% OP SOLN 5 ML BTL SL PRN (16:37)
[2019-03-03] MEDS ORDERED: SCOPOLAMINE 1.5 MG TDSY TD SCH (17:00)
[2019-03-04] MEDS ORDERED: CHECK SCOPOLAMINE PATCH PLACEMENT SCH
[2019-03-06 16:32] LABS: CMV IgM Antibody <30.00 Au/mL; Parvovirus IgG 5.3 (<0.9); Parvovirus IgM 0.1 (<0.9)
--- NOTE | 2019-03-13 23:41 | Death Summary ---
Date of Service March 03, 2019 Pronouncement Note Date and Time of Date of : 03/03/19 PCOD Preliminary cause of : Acute kidney injury Contributing Factors (1) Sepsis: (2) Elevated lactic acid level: (3) High anion gap metabolic acidosis: (4) Acute kidney injury: (5) Hyperkalemia: (6) RLL pneumonia: (7) UTI (urinary tract infection): (8) Elevated troponin I level: (9) Paroxysmal SVT (supraventricular tachycardia): (10) Elevated LFTs: (11) Acute systolic (congestive) heart failure: (12) Left bundle branch block: (13) Cardiomyopathy: (14) Aortic stenosis: (15) Prolonged INR: (16) Polymyalgia rheumatica: (17) GERD (gastroesophageal reflux disease): (18) Depression: (19) Dyslipidemia: (20) Hypothyroid: (21) HTN (hypertension): (22) Anxiety: (23) Open-angle glaucoma: (24) Hyponatremia: (25) DVT prophylaxis: Summary Additional details: (1) Sepsis: - Presented with cough and SOB following recent diagnosis of acute bronchitis. - Tachycardic (SVT on 03/01 as noted below), elevated LFTs and shock liver, acute renal failure from ATN noted on admission, as well as new onset systolic CHF - evidence of multisystem organ failure. - CT of the chest does show infiltrates in the right middle and right lower lobes, however this could be ?asymmetric pulmonary edema. - UC also positive for Enterococcus; previously on IV Zosyn. 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 Roxanol as needed Patient now appears more comfortable on morphine (2) Elevated lactic acid level: - Lactic acid level elevated, 3.4. Could be secondary to worsening renal failure and liver failure. (3) High anion gap metabolic acidosis: - In setting of acute renal failure. - Nephrology following, decompensated and was no longer a candidate for dialysis No further labs to be drawn on comfort measures (4) Acute kidney injury: - Creatinine continued to trend upward with oliguria, hyperkalemia, AGMA. - Received Lasix drip with no improvement. Was not a candidate for dialysis after continued to decompensate as above -Continue Galeana catheter for comfort No further labs needed (5) Hyperkalemia: - In setting of ARF/metabolic acidosis. -As above (6) RLL pneumonia: - Chest CT with RML and RLL opacities concerning for infection. -Received antibiotics and now all discontinued on comfort measures (7) UTI (urinary tract infection): - UC positive for Enterococcus species, initially on antibiotics and now discontinued (8) Elevated troponin I level: - Trop peaked at 0.850; concern for recent cardiac event in setting of severely reduced EF compared to recent TTE and new wall motion abnormalities. - Type II [place] due to demand ischemia. - Cardiology consulted; no acute intervention was indicated due to decompensated state -Now on comfort measures (9) Paroxysmal SVT (supraventricular tachycardia): - SVT noted on 03/01/19 with heart rate in the 170s, hypotension and decreased mentation - received Adenosine with resolution. - Concern for episodes of SVT at home leading to hypotensive episodes --> ATN with ARF as a result. Now on comfort measures (10) Elevated LFTs: - LFTs were significantly elevated, as well as elevated INR, and decreased platelet count - related to septic shock vs. hepatic congestion from CHF and cardiogenic shock - GI consulted, appreciate input. - Viral studies, including Parvovirus, EBV, CMV, Hepatitis, HSV, were drawn No further monitoring Comfort measures only (11) Acute systolic (congestive) heart failure: - Echo on admission showed EF 20-25%, severe global hypokinesis to akinesis sparing only the base to mid lateral wall --> Could be ischemic in nature given that she presented with N/V a few days prior to admission (ACS event?) - Chest CT with bilateral pleural effusions. - No improvement with Lasix drip, not a candidate for dialysis as above Now on comfort measures (12) Left bundle branch block: - First noted on EKG in October 2018; cardiac work up as noted above. (13) Cardiomyopathy: - Concern for viral vs. ischemic, versus secondary to left bundle branch block - Echo showed global severe hypokinesis to akinesis sparing only the base to mid lateral wall. (14) Aortic stenosis: - Mild, noted on TTE. (15) Prolonged INR: - INR is prolonged in setting of liver dysfunction. (16) Polymyalgia rheumatica: No further prednisone on comfort measures (17) GERD (gastroesophageal reflux disease): Discontinued meds (18) Depression: Discontinued Effexor (19) Dyslipidemia: Discontinue meds (20) Hypothyroid: - TSH is 1.39. Discontinue levothyroxine (21) HTN (hypertension): Discontinued all meds (22) Anxiety: Ativan as needed (23) Open-angle glaucoma: (24) Hyponatremia: - Na level decreased. - In setting of renal failure. No further labs needed Pt peacefully on the evening of 03/03/19 Additional Data Confirmation of : no pulse (Pronouncement performed by RN x 2), no respirations, no heart sounds and pupils fixed and dilated Attending physician: Kayla Ba MD
== END 2019-03-03 20:00 | disposition expired | DRG 871 ==
LOC: ED 15:43 → SUATTDRO 19:22 → 2E 19:22 → 1E 03-02 09:57 → 4W 03-02 15:06
DX: I47.1 Supraventricular tachycardia; I13.0 Hypertensive heart and chronic kidney disease with heart failure and stage 1 through stage 4 chronic kidney disease, or unspecified chronic kidney disease; F41.9 Anxiety disorder, unspecified; N39.0 Urinary tract infection, site not specified; E11.40 Type 2 diabetes mellitus with diabetic neuropathy, unspecified; E87.5 Hyperkalemia; I74.3 Embolism and thrombosis of arteries of the lower extremities; Z66 Do not resuscitate; R79.1 Abnormal coagulation profile; N18.3 Chronic kidney disease, stage 3 (moderate); E86.0 Dehydration; B95.2 Enterococcus as the cause of diseases classified elsewhere; Z79.52 Long term (current) use of systemic steroids; E03.9 Hypothyroidism, unspecified; I50.21 Acute systolic (congestive) heart failure; Z86.73 Personal history of transient ischemic attack (TIA), and cerebral infarction without residual deficits; E11.649 Type 2 diabetes mellitus with hypoglycemia without coma; N17.0 Acute kidney failure with tubular necrosis; K72.00 Acute and subacute hepatic failure without coma; Z51.5 Encounter for palliative care; K21.9 Gastro-esophageal reflux disease without esophagitis; Z79.82 Long term (current) use of aspirin; I21.A1 Myocardial infarction type 2; E87.2 Acidosis; E11.22 Type 2 diabetes mellitus with diabetic chronic kidney disease; F32.9 Major depressive disorder, single episode, unspecified; H40.10X0 Unspecified open-angle glaucoma, stage unspecified; G89.29 Other chronic pain; Z87.891 Personal history of nicotine dependence; E11.21 Type 2 diabetes mellitus with diabetic nephropathy; A41.9 Sepsis, unspecified organism; Z79.891 Long term (current) use of opiate analgesic; Z79.899 Other long term (current) drug therapy; Z82.49 Family history of ischemic heart disease and other diseases of the circulatory system; M35.3 Polymyalgia rheumatica; I50.32 Chronic diastolic (congestive) heart failure; Z83.3 Family history of diabetes mellitus; J18.1 Lobar pneumonia, unspecified organism; E78.5 Hyperlipidemia, unspecified; E87.1 Hypo-osmolality and hyponatremia; I44.7 Left bundle-branch block, unspecified; Z88.8 Allergy status to other drugs, medicaments and biological substances; M54.9 Dorsalgia, unspecified